=== PATIENT | female | born 1960 | race Caucasian/White ===

== ENCOUNTER → 2018-01-11 15:07 | Outpatient (CLI) | payer MEDICAID, SELFPAY ==
[2018-01-11 16:54] LABS: Thyroid Stim Hormone (TSH) 0.94 uIU/mL (0.358-3.74)
== END ==
PROVIDERS: Family Provider Family Medicine Geriatric Medicine; PCP Family Medicine Geriatric Medicine; Visit Provider Family Medicine Geriatric Medicine
DX: E03.9 Hypothyroidism, unspecified (principal)
CPT/HCPCS: 36415; 84443

== ENCOUNTER 2018-03-18 12:27 | Emergency (ER) | payer MEDICAID, SELFPAY ==
[2018-03-18 12:28] VITALS: BP 113/58; PULSE 103; RESP 16; TEMP 36.6; O2SAT 96; BMI 25.1
--- NOTE | 2018-03-18 12:40 | RAD_ITS ---
STUDY: X-RAY - RIGHT TIBIA AND FIBULA REASON FOR EXAM: Right foot/ankle soft tissue swelling and bruising, fall 2 days ago. TECHNIQUE: 2 view(s) of the tibia and fibula were obtained. COMPARISON: None. FINDINGS: There is intact orthopedic hardware bridging healed fractures of the medial malleolus and distal fibula. There is no demonstrated recent fracture of the tibia or fibula. There are pins transfixing a patellar fracture with disruption of one of the pins. There is mild soft tissue swelling at the dorsal aspect of the ankle. RAD/Tibia & Fibula 2 Views IMPRESSION: Healed fracture deformity of the medial malleolus and distal tibia without recent fracture. Patellar fracture with disruption of one of the orthopedic pins. Electronically Signed: Tye López MD at 13:32 EDT Tel , Service support ,
--- NOTE | 2018-03-18 12:40 | RAD_ITS ---
STUDY: X-RAY - RIGHT FOOT CLINICAL: Dorsal soft tissue swelling and bruising, fall 2 days ago. TECHNIQUE: 3 view(s) of the foot. COMPARISON: None. FINDINGS: There is osteopenia of the foot. There is orthopedic hardware in the medial malleolus and distal fibula. Normal talus, calcaneus, and tarsal bones. Normal visualized subtalar, talonavicular, calcaneocuboid, tarsal and tarsometatarsal articulations. There is a small avulsion fracture of the base of the fifth metatarsal. There is mild joint space narrowing of the metatarsophalangeal joint of the great toe. Normal tibial and fibular sesamoid bones. Normal interphalangeal joint of the great toe. Normal phalanges of the great toe. Normal second through fifth metatarsophalangeal joints. Normal interphalangeal joints and phalanges of the lesser toes. There is mild soft tissue swelling at the dorsal aspect of the foot. RAD/Foot min 3 Views IMPRESSION: Small avulsion fracture of the fifth metatarsal base. Mild arthrosis of the first metatarsophalangeal joint. Electronically Signed: Tye López MD at 13:32 EDT Tel , Service support ,
--- NOTE | 2018-03-18 13:02 | ED.VISSUMM ---
- ER Visit Summary Date of Service: 03/18/18 Chief Complaint: Right foot injury History of Present Illness: The patient is a 58 F who is post trauma day 2 from a fall going up stairs in which she injured the right foot. She states she really does not have any pain in it but notes that swollen and is purple. Physical Examination: Afebrile vital signs are stable The right foot below the malleoli demonstrates purple ecchymosis. She is point tender over the base of the fifth metatarsal. There is mild swelling. Neurovascular intact distally Test Results: X-rays reveal a small pull off fracture of the base of the fifth metatarsal. Emergency Department Course and Treatment: Patient was placed in a boot orthosis. She will follow-up with orthopedics return if worsening. Impression: 1. Right fifth metatarsal fracture This note was generated with [employer] dictation software. It may contain incorrect words, spelling, and punctuation that were not noted in review of the chart prior to signing ED Disposition - Plan for ED Patient: Disposition: Home or Assisted Living Chief Complaint: Lower Extremity Injury Instructions: ED Fx Foot Referrals: Dequan Clifton DO [STAFF PHYSICIAN] - (call for follow up appointment)
--- NOTE | 2018-03-18 13:05 | ED.DCSUM_ITS ---
- ER Visit Summary Date of Service: 03/18/18 Chief Complaint: Right foot injury History of Present Illness: The patient is a 58 F who is post trauma day 2 from a fall going up stairs in which she injured the right foot. She states she really does not have any pain in it but notes that swollen and is purple. Physical Examination: Afebrile vital signs are stable The right foot below the malleoli demonstrates purple ecchymosis. She is point tender over the base of the fifth metatarsal. There is mild swelling. Neurovascular intact distally Test Results: X-rays reveal a small pull off fracture of the base of the fifth metatarsal. Emergency Department Course and Treatment: Patient was placed in a boot orthosis. She will follow-up with orthopedics return if worsening. Impression: 1. Right fifth metatarsal fracture This note was generated with [employer] dictation software. It may contain incorrect words, spelling, and punctuation that were not noted in review of the chart prior to signing ED Disposition - Plan for ED Patient: Disposition: Home or Assisted Living Chief Complaint: Lower Extremity Injury Instructions: ED Fx Foot Referrals: Dequan Clifton DO [STAFF PHYSICIAN] - (call for follow up appointment)
[2018-03-18 13:24] VITALS: RESP 14
== END 2018-03-18 13:24 | disposition home or self-care (01) ==
LOC: ED 13:11
PROVIDERS: Emergency Provider Emergency Medicine; Family Provider Family Medicine Geriatric Medicine; PCP Family Medicine Geriatric Medicine
DX: S92.351A Displaced fracture of fifth metatarsal bone, right foot, initial encounter for closed fracture (principal); K21.9 Gastro-esophageal reflux disease without esophagitis; Z86.73 Personal history of transient ischemic attack (TIA), and cerebral infarction without residual deficits; Z72.0 Tobacco use; Z79.82 Long term (current) use of aspirin; Z79.899 Other long term (current) drug therapy; W17.89XA Other fall from one level to another, initial encounter; Y93.01 Activity, walking, marching and hiking; Y92.89 Other specified places as the place of occurrence of the external cause; Y99.8 Other external cause status
CPT/HCPCS: 73590; 73630; 99283

== ENCOUNTER → 2018-05-26 09:14 | Outpatient (CLI) | payer MEDICAID, SELFPAY ==
[2018-05-26 12:51] LABS: Absolute Lymphocyte Count 3.44 X10^3/ul (0.83-4.51); Absolute Neutrophil Count 3.8 X10^3/uL (2.0-7.7); Basophil# 0.05 X10^3/uL; Basophil% 0.6 % (0-1); Eosinophil# 0.14 X10^3/uL; Eosinophils% 1.7 % (0-5); Hematocrit 43.7 % (37-47); Hemoglobin 13.9 g/dl (12.0-15.0); Lymphocyte # 3.44 X10^3/ul (4.0); Lymphocyte % 41.7 % (19-41); Mean Corp Hgb Conc 31.8 g/gl (32-36); Mean Corpuscular Hgb 30.5 pg (27.0-32.0); Mean Corpuscular Volume 95.8 fL (81-99); Mean Platelet Vol. 9.8 fl (6.2-12.0); Monocyte# 0.78 X10^3/uL; Monocyte% 9.5 % (0-10); Neutrophil # 3.81 X10^3/uL (2.7-7.7); Neutrophil % 46.1 % (47-70); POSITIVE COUNT NO; POSITIVE DIFFERENTIAL NO; POSITIVE MORPHOLOGY NO; Platelet Count 383 K/mm3 (150-450); RBC Distribution Width CV 14.3 % (11.6-14.6); Red Blood Count 4.56 M/mm3 (4.2-5.4); White Blood Count 8.3 K/mm3 (4.4-11.0)
[2018-05-26 13:18] LABS: ALB/GLOB Ratio 0.9 RATIO (0.9-2.4); AST(SGOT) 16 U/L (15-37); Alanine Aminotransfer ALT/SGPT 23 U/L (13-56); Albumin, Serum 3.5 g/dL (3.2-5.0); Alkaline Phosphatase 128 U/L (45-117); Anion Gap 8 (5-15); BUN 12 mg/dL (7-18); BUN/Creat Ratio 13.8 RATIO (10-20); Calcium,Total 8.9 mg/dL (8.5-10.1); Chloride 105 mmol/L (98-107); Creatinine, Serum 0.87 mg/dL (0.55-1.02); EST Glomerular Filtration Rate 71 mL/min (>60); Est Glom Filt Rate - Afr Amer 86 mL/min (>60); Globulin 4.1 g/dL (2.2-4.2); Glucose 83 mg/dL (74-106); Potassium 3.9 mmol/L (3.5-5.1); Protein, Total 7.6 g/dL (6.4-8.2); Sodium Level 142 mmol/L (136-145); Thyroid Stim Hormone (TSH) 2.52 uIU/mL (0.358-3.74)
[2018-05-27 08:12] LABS: Hep C Antibodies <0.1 s/co ratio (0.0-0.9)
== END ==
PROVIDERS: Family Provider Family Medicine Geriatric Medicine; PCP Family Medicine Geriatric Medicine; Visit Provider Family Medicine Geriatric Medicine
DX: R53.83 Other fatigue (principal); Z13.89 Encounter for screening for other disorder
CPT/HCPCS: 36415; 80053; 84443; 85025; 86803

== ENCOUNTER → 2018-11-24 12:03 | Outpatient (CLI) | payer MEDICAID, SELFPAY ==
[2018-11-24 14:03] LABS: Absolute Lymphocyte Count 2.59 X10^3/ul (0.83-4.51); Basophil# 0.05 X10^3/uL; Basophil% 0.7 % (0-1); Eosinophil# 0.13 X10^3/uL; Eosinophils% 1.8 % (0-5); Hematocrit 45.4 % (37-47); Lymphocyte # 2.59 X10^3/ul (4.0); Lymphocyte % 35.2 % (19-41); Mean Corp Hgb Conc 30.8 g/gl (32-36); Mean Corpuscular Hgb 28.2 pg (27.0-32.0); Mean Corpuscular Volume 91.5 fL (81-99); Mean Platelet Vol. 9.9 fl (6.2-12.0); Monocyte# 0.57 X10^3/uL; Monocyte% 7.7 % (0-10); Neutrophil # 4.01 X10^3/uL (2.7-7.7); Neutrophil % 54.5 % (47-70); Platelet Count 381 K/mm3 (150-450); RBC Distribution Width CV 14.5 % (11.6-14.6); RBC Distribution Width SD 48.6 fl (35.1-43.9); Red Blood Count 4.96 M/mm3 (4.2-5.4); White Blood Count 7.4 K/mm3 (4.4-11.0)
[2018-11-24 14:07] LABS: POSITIVE COUNT NO; POSITIVE DIFFERENTIAL NO; POSITIVE MORPHOLOGY NO
[2018-11-24 14:16] LABS: Vitamin D,25 Hydroxy 53.6 ng/mL (29.95-100.01)
[2018-11-24 14:34] LABS: ALB/GLOB Ratio 0.8 RATIO (0.9-2.4); AST(SGOT) 14 U/L (15-37); Alanine Aminotransfer ALT/SGPT 19 U/L (13-56); Albumin, Serum 3.3 g/dL (3.2-5.0); Alkaline Phosphatase 219 U/L (45-117); Anion Gap 7 (5-15); BUN 9 mg/dL (7-18); BUN/Creat Ratio 10.2 RATIO (10-20); Calcium,Total 8.7 mg/dL (8.5-10.1); Chloride 107 mmol/L (98-107); Creatinine, Serum 0.88 mg/dL (0.55-1.02); EST Glomerular Filtration Rate 70 mL/min (>60); Est Glom Filt Rate - Afr Amer 85 mL/min (>60); Globulin 3.9 g/dL (2.2-4.2); Glucose 92 mg/dL (74-106); Potassium 3.6 mmol/L (3.5-5.1); Protein, Total 7.2 g/dL (6.4-8.2); Sodium Level 139 mmol/L (136-145); Thyroid Stim Hormone (TSH) < 0.01 uIU/mL (0.358-3.74)
--- OUTSIDE RECORDS SUMMARY | 2019-01-29 04:06 | XMS RPT_ITS ---
:1960 Author Organization [facility] Care Team Providers Name Role Phone Sam, Zachary Chi Attending Unavailable Sam, Zachary Chi Primary Care Unavailable Sam, Zachary Chi Attending Unavailable Sam, Zachary Chi Primary Care Unavailable Kelly Bee Attending Unavailable Gilbert Aguilar Attending Unavailable Sam, Zachary Chi Referring Unavailable Sam, Zachary Chi Primary Care Unavailable Sam, Zachary Chi Primary Care Unavailable Gilbert Hall Attending Unavailable Dequan Clifton Attending Unavailable Sam, Zachary Chi Referring Unavailable Sam, Zachary Chi Primary Care Unavailable Sam, Zachary Chi Attending Unavailable Sam, Zachary Chi Primary Care Unavailable PROBLEMS PROBLEMS DATE TYPE CONDITION / CODE ATTENDING STATUS SOURCE 05/26/2018 Unknown R53.83 - Other Sam, Zachary Chi Active [facility] fatigue / Community R53.83(ICD-10) Hospital Repository 05/26/2018 Unknown Z13.89 - Zachary Vargas Chi Active [facility] Encounter for Community screening for Hospital other disorder / Repository Z13.89(ICD-10) 02/17/2018 Unknown E78.5 - Gilbert Aguilar Active [facility] Hyperlipidemia, Community unspecified / Hospital E78.5(ICD-10) Repository 02/17/2018 Unknown Z72.0 - Tobacco Gilbert Aguilar Active [facility] use / Community Z72.0(ICD-10) Hospital Repository 01/11/2018 Unknown E03.9 - SamZachary lim Chi Active [facility] Hypothyroidism, Community unspecified / Hospital E03.9(ICD-10) Repository PROCEDURES PROCEDURES No Procedure Records FoundRESULTS RESULTS CBC W/DIFF, AUTOMATED Collected: 11/24/2018 Status: F Source: [facility] 12:05 PM [facility] REPOSITORY TYPE CODE TESTS RESULT OUT OF RANGE REFERENCE UNITS LAB L100.1000 4.4-11.0 K/mm3 Normal WBC 7.4 LAB L100.1200 4.2-5.4 M/mm3 Normal RBC 4.96 LAB L100.1300 12.0-15.0 g/dl Normal HGB 14.0 LAB L100.1400 37-47 % Normal HCT 45.4 LAB L100.1500 81-99 fL Normal MCV 91.5 LAB L100.1600 27.0-32.0 pg Normal MCH 28.2 LAB L100.1700 32-36 g/gl Low MCHC 30.8 LAB L100.1810 11.6-14.6 % Normal RDW CV 14.5 LAB L100.1820 35.1-43.9 fl High RDW SD 48.6 LAB L100.1900 150-450 K/mm3 Normal PLT 381 LAB L100.2000 6.2-12.0 fl Normal MPV 9.9 LAB L100.2100 47-70 % Normal NEUT% 54.5 LAB L100.2200 19-41 % Normal LY% 35.2 LAB L100.2300 0-10 % Normal MONO% 7.7 LAB L100.2400 0-5 % Normal EO% 1.8 LAB L100.2500 0-1 % Normal BASO% 0.7 LAB L100.2550 0.0-0.9 % Normal IM GRAN % 0.100 Result Comment: IG% - Immature Granulocytes (promyelocytes, myelocytes and metamyelocytes) > 1% indicates that a LEFT SHIFT is Present. LAB L100.2620 2.0-7.7 X10 3/uL Normal Absolute Neut 4.0 LAB L100.2720 0.83-4.51 X10 3/ul Normal Absolute Lymph 2.59 Performed By: #### L100.0100 #### [facility] [address] [place], [address] VITAMIN D,25 HYDROXY Collected: 11/24/2018 Status: F Source: [place] 12:05 [facility] REPOSITORY TYPE CODE TESTS RESULT OUT OF RANGE REFERENCE UNITS LAB L506.1000 29.95-100.01 ng/mL Normal Vitamin D 53.6 25-OH Result Comment: Vitamin D 25(OH) Status Range Deficiency <20 ng/mL (50nmol/L) Insuffciency 20 - 30 ng/mL (50 - 75 nmol/L) Sufficiency 30 - 100 ng/mL (75 - 250 nmol/L) Toxicity >100 ng/mL (>250 nmol/L) Performed By: #### L506.1000 #### [facility] [address] [place], [place], [address] COMPREHENSIVE METABOLIC Collected: 11/24/2018 Status: F Source: [facility] 12:05 PM [facility] REPOSITORY TYPE CODE TESTS RESULT OUT OF RANGE REFERENCE UNITS LAB L501.0100 74-106 mg/dL Normal GLU 92 Result Comment: Please note revised GLUCOSE reference range effective 2017. LAB L501.1000 7-18 mg/dL Normal BUN 9 LAB L501.1100 0.55-1.02 mg/dL Normal CREAT,SERUM 0.88 Result Comment: The validity of the calculated GFR AND GFRAA in patients over 70 years has not been determined. Clinical correlation is essential. LAB L501.1110 >60 mL/min Normal EST GFR 70 Result Comment: Non- GFR Calc LAB L501.1115 >60 mL/min Normal EST GFR - AA 85 Result Comment: GFR Calc LAB L501.1300 10-20 RATIO Normal BUN/CRE 10.2 LAB L501.1500 6.4-8.2 g/dL T Normal PROT 7.2 LAB L501.1800 3.2-5.0 g/dL Normal ALB 3.3 LAB L501.1950 2.2-4.2 g/dL Normal GLOB 3.9 LAB L501.2000 0.9-2.4 RATIO Low A/G 0.8 LAB L501.2200 8.5-10.1 mg/dL CA Normal 8.7 LAB L501.4100 15-37 U/L Low AST 14 LAB L501.4305 45-117 U/L High ALK P 219 LAB L501.4405 13-56 U/L Normal ALT 19 LAB L501.4600 0.20-1.00 mg/dL T Normal BILI 0.40 LAB L501.5300 136-145 mmol/L NA Normal 139 LAB L501.5600 3.5-5.1 mmol/L K Normal 3.6 LAB L501.5900 98-107 mmol/L CL Normal 107 LAB L501.6100 21.0-32.0 mmol/L Normal CO2 25.0 LAB L501.6200 5-15 Normal GAP 7 Performed By: #### L500.4050, L501.9520 #### [facility] [address] [place], [place], [address] THYROID STIM HORMONE Collected: 11/24/2018 Status: F Source: [place] (TSH) 12:05 PM [facility] REPOSITORY TYPE CODE TESTS RESULT OUT OF RANGE REFERENCE UNITS LAB L501.9520 0.358-3.74 uIU/mL Low TSH < 0.01 Performed By: #### L500.4050, L501.9520 #### [facility] [address] [place], [address] CBC W/DIFF, AUTOMATED Collected: 05/26/2018 Status: F Source: [place] 9:54 AM [facility] REPOSITORY TYPE CODE TESTS RESULT OUT OF RANGE REFERENCE UNITS LAB L100.1000 4.4-11.0 K/mm3 Normal WBC 8.3 LAB L100.1200 4.2-5.4 M/mm3 Normal RBC 4.56 LAB L100.1300 12.0-15.0 g/dl Normal HGB 13.9 LAB L100.1400 37-47 % Normal HCT 43.7 LAB L100.1500 81-99 fL Normal MCV 95.8 LAB L100.1600 27.0-32.0 pg Normal MCH 30.5 LAB L100.1700 32-36 g/gl Low MCHC 31.8 LAB L100.1810 11.6-14.6 % Normal RDW CV 14.3 LAB L100.1820 35.1-43.9 fl High RDW SD 49.0 LAB L100.1900 150-450 K/mm3 Normal PLT 383 LAB L100.2000 6.2-12.0 fl Normal MPV 9.8 LAB L100.2100 47-70 % Low NEUT% 46.1 LAB L100.2200 19-41 % High LY% 41.7 LAB L100.2300 0-10 % Normal MONO% 9.5 LAB L100.2400 0-5 % Normal EO% 1.7 LAB L100.2500 0-1 % Normal BASO% 0.6 LAB L100.2550 0.0-0.9 % Normal IM GRAN % 0.400 Result Comment: IG% - Immature Granulocytes (promyelocytes, myelocytes and metamyelocytes) > 1% indicates that a LEFT SHIFT is Present. LAB L100.2620 2.0-7.7 X10 3/uL Normal Absolute Neut 3.8 LAB L100.2720 0.83-4.51 X10 3/ul Normal Absolute Lymph 3.44 Performed By: #### L100.0100 #### [facility] [address] [place], [place], [address] COMPREHENSIVE METABOLIC Collected: 05/26/2018 Status: F Source: [place] 9:54 AM [facility] REPOSITORY TYPE CODE TESTS RESULT OUT OF RANGE REFERENCE UNITS LAB L501.0100 74-106 mg/dL Normal GLU 83 Result Comment: Please note revised GLUCOSE reference range effective 2017. LAB L501.1000 7-18 mg/dL Normal BUN 12 LAB L501.1100 0.55-1.02 mg/dL Normal CREAT,SERUM 0.87 Result Comment: The validity of the calculated GFR AND GFRAA in patients over 70 years has not been determined. Clinical correlation is essential. LAB L501.1110 >60 mL/min Normal EST GFR 71 Result Comment: Non- GFR Calc LAB L501.1115 >60 mL/min Normal EST GFR - AA 86 Result Comment: GFR Calc LAB L501.1300 10-20 RATIO Normal BUN/CRE 13.8 LAB L501.1500 6.4-8.2 g/dL T Normal PROT 7.6 LAB L501.1800 3.2-5.0 g/dL Normal ALB 3.5 LAB L501.1950 2.2-4.2 g/dL Normal GLOB 4.1 LAB L501.2000 0.9-2.4 RATIO Normal A/G 0.9 LAB L501.2200 8.5-10.1 mg/dL CA Normal 8.9 LAB L501.4100 15-37 U/L Normal AST 16 LAB L501.4305 45-117 U/L High ALK P 128 LAB L501.4405 13-56 U/L Normal ALT 23 LAB L501.4600 0.20-1.00 mg/dL T Normal BILI 0.40 LAB L501.5300 136-145 mmol/L NA Normal 142 LAB L501.5600 3.5-5.1 mmol/L K Normal 3.9 LAB L501.5900 98-107 mmol/L CL Normal 105 LAB L501.6100 21.0-32.0 mmol/L Normal CO2 29.0 LAB L501.6200 5-15 Normal GAP 8 Performed By: #### L500.4050, L501.9520 #### [facility] [address] [place], [place], [id number] THYROID STIM HORMONE Collected: 05/26/2018 Status: F Source: [place] (TSH) 9:54 AM [facility] REPOSITORY TYPE CODE TESTS RESULT OUT OF RANGE REFERENCE UNITS LAB L501.9520 0.358-3.74 uIU/mL Normal TSH 2.52 Performed By: #### L500.4050, L501.9520 #### [facility] [address] [place], [place], [id number] HEPATITIS C ANTIBODIES Collected: 05/26/2018 Status: F Source: [place] 9:54 AM [facility] REPOSITORY TYPE CODE TESTS RESULT OUT OF RANGE REFERENCE UNITS LAB L3100.0650 0.0-0.9 s/co ratio Normal HEP C AB <0.1 Result Comment: Negative: < 0.8 Indeterminate: 0.8 - 0.9 Positive: > 0.9 The CDC recommends that a positive HCV antibody result be followed up with a HCV Nucleic Acid Amplification test (070533). Performed at: - [facility] [id number] [place] Range Operator: Andrei Knowles PhD, Phone: [phone] Performed By: #### L3100.0625 #### [facility] (refer to report for specific site) refer to report for address and phone number ORTHOPEDIC VISIT Observed: 04/24/2018 Status: F Source: [place] RE[place] 9:11 PM [facility] REPOSITORY [facility] [address] [place] [address] [address] [place] [address] OFFICE VISIT Date of Service: 03/30/18 MR#: [id number] Acct: [id number] Name: FLOYD MUELLER Rep #: [id number] : 1960 Provider: Dequan Clifton DO Age/Sex: 58/F Location: [facility] Status: Signed Intake Intake Visit Reasons: RIGHT Foot Is patient in pain?: Yes Pain scale (1-10): 2 Allergies No Known Allergies Allergy (Verified 03/18/18 12:35) Medications omeprazole 20 mg capsule,delayed release 20 mg PO QDAY 02/16/18 [History Confirmed 03/30/18] levothyroxine 50 mcg capsule 50 mcg PO QDAY cap 02/17/18 [History Confirmed 03/30/18] Aspirin E.C. 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 Patient presents in the cam boot from the ED and only complains of pain when ambulating otherwise she is comfortable fwb in boot. Denies numbness, tingling or other associated symptoms. ROS Musc Reports joint pain, Reports joint swelling Ortho Exam Right Ankle Skin/Wound: Yes Ecchymosis and Soft Tissue Swelling Contralateral Normal: Yes Exam: present TTP FX site; absent TTP Lateral Malleolus, TTP ATFL, TTP Medial Malleolus, TTP Deltoid Ligament or TTP Lisfranc Joint Dorsiflexion 0-20: 20 degrees Plantar Flexion 0-40: 40 degrees Compartments: Compartments: soft ROM: present Pain with ROM, present Crepitus with ROM Tests: Cedillo Test: 1, Squeeze Test: 1 Anterior Drawer: 0 Motor: Ankle Dorsiflextion: 5, Ankle Plantar Flexion: 5, Ankle Inversion: 5, EHL: 5 Sensation: Deep Peroneal Nerve: I, Superficial Peroneal Nerve: I, Tibial Nerve: I, Sural Nerve: I, Saphenous Nerve: I Pulses: Dorsalis Pedis: 2, Posterior Tibial: 2 ANKLE: Patient is alert and oriented x3 in no acute distress. Appropriate eye contact and affect. Patient walks with a antalgic gait. Patient is currently in a Cam boot. She has no calf pain negative Homans. Gross motor strength 5 out of 5 in all planes. Sensation intact from the L1-S1 distributions. She is tender to palpation across the base of the fifth metatarsal. There is mild ecchymosis and swelling as expected. Patient has no Lisfranc pain and no other associated deltoid ligament pain. Mildly tender palpation around the distal fibula consistent with her ankle sprain. X-rays: Evaluated by myself and the patient-patient shows a small avulsion fracture of the base of the fifth metatarsal. Otherwise she has previous hardware within the ankle joint that appears to be well-seated well placed. Left Ankle Skin: Yes CDI Contralateral Normal: Yes Compartments: soft Dorsiflexion 0-20: 20 degrees Plantar Flexion 0-40: 40 degrees ROM: No pain with ROM or crepitus with ROM Anterior Drawer: 0 Tests: Cedillo Test: 1, Squeeze Test: 1 Motor: Ankle Dorsiflextion: 5, Ankle Plantar Flexion: 5, Ankle Eversion: 5, Ankle Inversion: 5, EHL: 5 Sensation: Deep Peroneal Nerve: I, Superficial Peroneal Nerve: I, Tibial Nerve: I, Sural Nerve: I, Saphenous Nerve: I Pulses: Dorsalis Pedis: 2, Posterior Tibial: 2 Assessment AND Plan Problems 1. Closed nondisplaced fracture of fifth metatarsal bone of right foot, initial encounter S92.354A Plan Assessment: Right foot pain and right fifth metatarsal avulsion fracture stable. Plan: At this point time will continue with the Cam boot as tolerated. I told the patient that when she feels comfortable that she can come out of the cam boot and walk around the house without any use of assistive device as needed. If she were to have continued difficulties we will get her into physical therapy. However this point time we will see the patient back in about 5 weeks. We will do a simple physical examination at that point time and then consider physical therapy versus continued physician directed home program. Patient agrees the plan. Any major issues at term. Coding Level of Care Code Off vis,est,level 4 Diagnoses Closed nondisplaced fracture of fifth metatarsal bone of right foot, initial encounter S92.354A Fracture type: closed Encounter type: initial encounter 04/24/182110 <Electronically signed by Dequan Clifton DO> Date Dequan Clifton DO Cosigner Signature: Date (if applicable) CC: EMERGENCY DEPARTMENT Observed: 03/18/2018 Status: F Source: [facility] SUMMARY 3:45 PM [facility] REPOSITORY [facility] Medical Records Department [address] [place] [address] Emergency Department Summary 03/18/18 1302 MR#: [id number] Acct: [id number] Name: FLOYD MUELLER Rep #: [id number] : 1960 58 From: Gilbert Hall DO PCP: Sam BARAJAS,Zachary [facility] Status: DEP ER - ER Visit Summary Date of Service: 03/18/18 Chief Complaint: Right foot injury History of Present Illness: The patient is a 58 F who is post trauma day 2 from a fall going up stairs in which she injured the right foot. She states she really does not have any pain in it but notes that swollen and is purple. Physical Examination: Afebrile vital signs are stable The right foot below the malleoli demonstrates purple ecchymosis. She is point tender over the base of the fifth metatarsal. There is mild swelling. Neurovascular intact distally Test Results: X-rays reveal a small pull off fracture of the base of the fifth metatarsal. Emergency Department Course and Treatment: Patient was placed in a boot orthosis. She will follow-up with orthopedics return if worsening. Impression: 1. Right fifth metatarsal fracture This note was generated with [employer] dictation software. It may contain incorrect words, spelling, and punctuation that were not noted in review of the chart prior to signing ED Disposition - Plan for ED Patient: Disposition: Home or Assisted Living Chief Complaint: Lower Extremity Injury Instructions: ED Fx Foot Referrals: Dequan Clifton DO [STAFF PHYSICIAN] - (call for follow up appointment) What to do if you have Problems For any increased pain, shortness of breath, bleeding, nausea or vomiting, chest pain, or any unexpected problems, contact your Primary Care Provider. Call [facility] ([phone]) or report to the closest Emergency Room. Call 911 if necessary. 03/18/18 1545 <Electronically signed by Gilbert Hall DO> Date Gilbert Hall DO Cosigner Signature (If Indicated): Date CC: Zachary Vargas MD TIBIA AND FIBULA Observed: 03/18/2018 Status: F Source: [place] 2 VIEWS 12:41 PM [facility] REPOSITORY [facility] Imaging Services [address] [place] [address] Tibia AND Fibula 2 Views MR#: [id number] Acct: [id number] Name: FLOYD MUELLER Rep #: [id number] : 1960 F 58 From: Tye López MD PCP: Zachary Vargas MD, Chi Status: DEP ER Study: Tibia AND Fibula 2 Views Date of Exam: 03/18/18 Exam# [id number] Ordering Dr: Gilbert Hall DO STUDY: X-RAY - RIGHT TIBIA AND FIBULA REASON FOR EXAM: Right foot/ankle soft tissue swelling and bruising, fall 2 days ago. TECHNIQUE: 2 view(s) of the tibia and fibula were obtained. COMPARISON: None. FINDINGS: There is intact orthopedic hardware bridging healed fractures of the medial malleolus and distal fibula. There is no demonstrated recent fracture of the tibia or fibula. There are pins transfixing a patellar fracture with disruption of one of the pins. There is mild soft tissue swelling at the dorsal aspect of the ankle. RAD/Tibia AND Fibula 2 Views IMPRESSION: Healed fracture deformity of the medial malleolus and distal tibia without recent fracture. Patellar fracture with disruption of one of the orthopedic pins. Electronically Signed: Tye López MD at 13:32 EDT Tel , Service support , CC: Gilbert Hall DO; Zachary Vargas MD Technical Editor: Signed FOOT MIN 3 VIEWS Observed: 03/18/2018 Status: F Source: [place] 12:41 PM [facility] REPOSITORY [facility] Imaging Services [address] [place] [address] Foot min 3 Views MR#: [id number] Acct: [id number] Name: FLOYD MUELLER Rep #: [id number] : 1960 F 58 From: Tye López MD PCP: Zachary Vargas MD, Chi Status: DEP ER Study: Foot min 3 Views Date of Exam: 03/18/18 Exam# [id number] Ordering Dr: Gilbert Hall DO STUDY: X-RAY - RIGHT FOOT CLINICAL: Dorsal soft tissue swelling and bruising, fall 2 days ago. TECHNIQUE: 3 view(s) of the foot. COMPARISON: None. FINDINGS: There is osteopenia of the foot. There is orthopedic hardware in the medial malleolus and distal fibula. Normal talus, calcaneus, and tarsal bones. Normal visualized subtalar, talonavicular, calcaneocuboid, tarsal and tarsometatarsal articulations. There is a small avulsion fracture of the base of the fifth metatarsal. There is mild joint space narrowing of the metatarsophalangeal joint of the great toe. Normal tibial and fibular sesamoid bones. Normal interphalangeal joint of the great toe. Normal phalanges of the great toe. Normal second through fifth metatarsophalangeal joints. Normal interphalangeal joints and phalanges of the lesser toes. There is mild soft tissue swelling at the dorsal aspect of the foot. RAD/Foot min 3 Views IMPRESSION: Small avulsion fracture of the fifth metatarsal base. Mild arthrosis of the first metatarsophalangeal joint. Electronically Signed: Tye López MD at 13:32 EDT Tel , Service support , CC: iGlbert Hall DO; Zachary Vargas MD Technical Editor: Signed CARDIOLOGY VISIT Observed: 02/17/2018 Status: F Source: [place] REPORT 1:33 PM [facility] REPOSITORY [facility] [address] [place] [address] OFFICE VISIT Date of Service: 02/17/18 MR#: [id number] Acct: [id number] Name: FLOYD MUELLER Rep #: [id number] : 1960 Provider: Gilbert Aguilar MD Age/Sex: 58/F Location: [facility] Status: Signed HPI HPI Chief Complaint: Routine follow-up Details: Referring physician: Dr. Iraheta Ms. 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 This left her with left upper extremity hemiplegia,left facial droop, and dysphagia requiring placement of a G-tube. She had been placed on aspirin and Plavix. The patient then went to rehab at [facility], and then developed a headache. A CT scan demonstrated a right-sided acute hemorrhagic infarction involving the right frontal temporal and frontoparietal areas, most likely secondary to her Recent embolic CVA stroke. She was transferred to [facility] on 07/06/15 and stayed there until 07/09/15. At that time neurosurgery was consulted, and her aspirin and Plavix were discontinued. Her aspirin was restarted 7 days after discharge. patient was originally referred for cardiac risk stratification and underwent an echo and stress test in June and August 2015 respectively. Both were negative and no catheterization has been performed. After her initial CVA and bleed, she and had successfully quit smoking but unfortunately is back to smoking. Fortunately she denies any chest pain, angina, shortness of breath or dyspnea on exertion. She denies having previous stress test or catheterization. An EKG obtained 06/19/15 demonstrated normal sinus rhythm, normal axis, normal intervals, no evidence of previous myocardial infarction. Patient also underwent an echocardiogram during her initial stay at [facility] on 06/09/15 which demonstrated normal LV size and EF of 55%, bubble was negative for intra-atrial shunt. A repeat CT a of her neck demonstrated normal bilateral cervical carotid and vertebral arteries, so no CEA has been performed at this time. Since her last visit, the patient has been doing fairly well, and denies any chest pain, angina, shortness of breath or dyspnea on exertion. Unfortunately she continues to smoke about half a pack of cigarettes per day. In our office today her blood pressure is 118/76, and pulse is 84 and regular. Her physical exam is as below. Her lipids are managed per Dr. Vargas. She is tolerating high-dose Lipitor at 80 mg p.o. daily at this time. No myalgias. Intake Vital Signs02/17/18 Height 5 ft 4 in 02/17/18 Weight: 133 lb 02/17/18 Body Mass Index (BMI) 22.8 02/17/18 Blood Pressure 118/76 02/17/18 Respiratory Rate 18 02/17/18 Pulse Rate 84 Intake Visit Reasons: 1 Y FU Allergies No Known Allergies Allergy (Verified 02/17/18 13:17) Medications Atorvastatin Calcium [Lipitor] 80 mg GT QHS #30 tab 06/12/15 [Rx Confirmed 02/16/18] Thiamine Hydrochloride [Vitamin B1] 100 mg GT BID #10 tab 06/12/15 [Rx Confirmed 02/16/18] omeprazole 20 mg capsule,delayed release 20 mg PO QDAY 02/16/18 [History Confirmed 02/16/18] trazodone 100 mg tablet PO 30 Days 02/16/18 [History Confirmed 02/16/18] zolpidem 10 mg tablet 10 mg PO HS PRN 02/16/18 [History Confirmed 02/16/18] levothyroxine 50 mcg capsule 50 mcg PO QDAY cap 02/17/18 [History Confirmed 02/17/18] paroxetine 10 mg tablet 10 mg PO QDAY 02/17/18 [History Confirmed 02/17/18] [facility] Medical History Hemorrhagic cerebrovascular accident (CVA) (Chronic 07/07/15) Nicotine abuse (Chronic) Hyperlipidemia (Chronic) Anxiety and depression (Chronic) COPD (chronic obstructive pulmonary disease) (Chronic) Hypothyroidism (Chronic) Left hemiplegia (Chronic) Osteoporosis (Chronic) Polycythemia vera (Chronic) Surgical History History of right knee surgery (Chronic) right ankle surgery (Chronic) Family History Mother Diabetes Social History Smoking Status: Former smoker ROS Const Const: Positive for weakness (left sided weakness); negative for fatigue, difficulty sleeping, frequent falls, headache(s) or excessive sweating Eyes Eyes: Negative for loss of peripheral vision, transient loss of vision, blurry vision or double vision ENT ENT: Negative for Nosebleed/epistaxis, balance problems, dizziness or headache(s) Cardio Chest Pain: No Edema: None Muscle aches with walking: None Resp Respiratory: Negative for SOB with activity, SOB at rest, SOB orthopnea\SOB lying down or paroxysmal nocturnal dyspnea GI GI: Negative nausea or heartburn : Negative for hematuria Musc Musc: Negative for muscle aches/ myalgia, muscle weakness, joint pain or balance problems Skin Skin: Negative non-healing lesions, unusual bruising or rash Neuro Neuro: Positive for weakness (left sided weakness); negative for blurry vision, dizziness, lightheadedness, orthostatic symptoms, double vision, frequent falls or headache(s) Matt Hematologic/Lymphatic: Negative for easy bruising Endo Endo: Negative for increased thirst/drinking, fatigue or excessive sweating Psych Psych: Negative for anxiety or depression Allergy Allergy/Immunology: Negative for hives, Negative for rash Cardiology Exam Const Appearance: cooperative, healthy appearing and no acute distress Nutritional Appearance: well nourished Orientation: alert, oriented x3 and oriented to person Head Head: normal to inspection, atraumatic and normocephalic Nose: external nose normal Face and Sinus: face symmetric Mouth: oral mucosae normal Eyes General: appearance normal, both eyes and all related structures Eyelids: eyelids normal Conjunctivae: conjunctivae normal Pupils: PERRL and normal by confrontation EOM: EOM intact bilaterally Neck Neck: normal visual inspection and full ROM Carotids: normal carotid upstroke Chest Chest inspection: normal inspection of the chest Auscultation: Bilateral: Clear to Auscultation Cardio Palpation: normal PMI Rate: regular rate Rhythm: regular rhythm Heart sounds: S1 normal and S2 normal GI GI: normal to inspection, no hepatosplenomegaly and bowel sounds present Neuro General: alert, oriented x3, awake, CN's II-XI intact bilaterally and moves all extremities Skin Skin: no rashes or lesions noted Extremities Pulses: Normal: Right Femoral Pulse, Left Femoral Pulse, Right Dorsalis Pedis Pulse, Left Dorsalis Pedis Pulse, Right Posterior Tibial Pulse, Left Posterior Tibial Pulse, Right Radial Pulse, Left Radial Pulse Lower Extremity Edema: None: Bilateral Psych Psychological: normal affect Assessment AND Plan 1. Hyperlipidemia E78.5 Plan 1. Hyperlipidemia: Her lipids are managed by her PCP, and she appears to be tolerating high-dose Lipitor at this time. No myalgias noted. Recommend an LDL less than 70 if possible. 2. Nicotine abuse Z72.0 Plan 2. Nicotine abuse: Unfortunately the patient has reverted back to tobacco abuse about one half pack of cigarettes per day. I strongly encouraged her to discontinue all tobacco products and she has successfully done so in the past. Patient commenced to discontinuing tobacco by the time we meet in 1 years time. 3. Return office in 1 year. This note was generated using a voice recognition system and there may be incorrect words, spelling or punctuation that were not noted when reviewing the office note prior to saving. Plan Detail Follow Up 1 Year (Jeff) Coding Level of Care Code Off vis,est,level 3 Diagnoses Hyperlipidemia E78.5 Nicotine abuse Z72.0 Coding Level of Care Code Off vis,est,level 3 Diagnoses Hyperlipidemia E78.5 Nicotine abuse Z72.0 02/17/18 1333 <Electronically signed by Gilbert Aguilar MD> Date Gilbert Aguilar MD Cosigner Signature: Date (if applicable) CC: THYROID STIM HORMONE Collected: 01/11/2018 Status: F Source: KODI (TSH) 3:08 PM [facility] REPOSITORY TYPE CODE TESTS RESULT OUT OF RANGE REFERENCE UNITS LAB L501.9520 0.358-3.74 uIU/mL Normal TSH 0.94 Performed By: #### L501.9520 #### [facility] [address] [place], [address] ALLERGIES ALLERGIES DATE TYPE / CODE NAME / CODE REACTION SEVERITY SOURCE 03/18/2018 Drug No Known Unknown [facility] Allergy/4160 Allergies/F00 Hospital 96305(SNOMED 8873103(RXNOR Repository CT) M) ENCOUNTERS ENCOUNTERS ADMIT/DISCHARGE ACCOUNT ADMITTING ENCOUNTER LOCATION SOURCE NUMBER CLASS 11/24/2018 [id number] Ambulatory Kodi Kodi 8 [facility] ing:POLAB3 Repository 05/26/2018 [id number] Ambulatory Fyffe Kodi 9 [facility] ing:POLAB3 Repository 03/30/2018/ [id number] Ambulatory BMSBuilding:B Kodi 8 4 MS.Counts include 234 beds at the [facility] Repository 03/18/2018/ [id number] Emergency Fyffe Kodi 8 2 [facility] ing:ED Repository 02/17/2018/ [id number] Ambulatory BMSBuilding:B Fyffe 8 3 [facility] Repository 02/16/2018 [id number] Ambulatory BMSBuilding:B Kodi 1 [facility] Repository 01/11/2018 [id number] Ambulatory Fyffe Fyffe 6 [facility] ing:LAB.FUTUR Repository E PAYERS PAYERS ENCOUNTER GUARANTOR PAYER SUBSCRIBER SOURCE 11/24/2018 [id number] [id number] Primary Insurance:[facility] FLOYD [address] [facility] DILDINEDOB: [place], [place] Number: [id number] Hospital [address]Hvx: [phone] [id number] Repository [phone] () Date:[id number] [address]FC: 11/24/2018 Secondary NOT GIVENUNK Kodi Insurance:SELF PAY [facility] Number: Effective Repository Date:2018-11-24 05/26/2018 FLOYD Mace [id number] Primary Insurance:[facility] FLOYD Mace Kodi [address] [facility] PLANPolicy [place]ILD[place]OB[place] Number: [id number] Hospital [address]Oyw: 330 [id number] Repository [phone] () Date:3621-24-41[place] [address] [address]DU: 05/26/2018 Secondary NOT GIVENUNK Fyffe Insurance:SELF PAY [facility] Number: Effective Repository Date:2018-05-26 03/30/2018 FLOYD Mace [id number] Primary Insurance:[facility] FLOYD Mace Kodi [address] COMMUNITY PLANPolicy [place]ILDIN[place]OB: [place] Number: [id number] Hospital [address]Wcd: 330 [id number] Repository [phone] () Date:[id number] [address] [address]AE: 03/30/2018 Secondary NOT GIVENUNK Fyffe Insurance:SELF PAY [facility] Number: Effective Repository Date:2018-03-23 03/18/2018 FLOYD Mace [id number] Primary Insurance:[facility] FLOYD [address] COMMUNITY PLANPolicy DILDINEDOB: [facility] [place] Number: [id number] Hospital [address]Wyp: [phone] [id number] Repository [phone] () Date:[id number] [address] [address]KJ: 03/18/2018 Secondary NOT GIVENUNK Kodi Insurance:SELF PAY [facility] Number: Effective Repository Date:2018-03-18 02/17/2018 FLOYD Mace [id number] Primary Insurance:[facility] FLOYD [address] COMMUNITY PLANPolicy DILDINEDOB: [facility] [place] Number: [id number] Hospital [address]Xty: ([phone]) [id number] Repository [phone] () Date:[id number] [address]PQ: 02/17/2018 Secondary NOT GIVENUNK Fyffe Insurance:SELF PAY [facility] Number: Effective Repository Date:2017-10-18 02/16/2018 Carolyn Primary Insurance:[facility] FLOYD Mariee [id number] 1/2 COMMUNITY PLANPolicy DILDINEDOB: [address] Number: [id number] [id number] Repository [address]Egi: ([phone]) Date:0418-28-55JN [phone] () [address] [place] [address]IS: 02/16/2018 Secondary NOT GIVENUNK Fyffe Insurance:SELF PAY [facility] Number: Effective Repository Date:2018-02-16 01/11/2018 Carolyn Primary Insurance:[facility] FLOYD Cortesdine638 1/2 COMMUNITY PLANPolicy DILDINEDOB: Community [address] Number: [id number] [id number] Repository [address]Afp: ([phone]) Date:3817-78-28YL [phone] () [address] [place] [address]KT: 01/11/2018 Secondary NOT GIVENUNK Kodi Insurance:SELF PAY [facility] Number: Effective Repository Date:2017-12-03
== END ==
PROVIDERS: Family Provider Family Medicine Geriatric Medicine; PCP Family Medicine Geriatric Medicine; Visit Provider Family Medicine Geriatric Medicine
DX: E55.9 Vitamin D deficiency, unspecified (principal); R53.83 Other fatigue
CPT/HCPCS: 36415; 80053; 82306; 84443; 85025

== ENCOUNTER 2018-12-26 14:45 | Emergency (ER) | payer MEDICAID, SELFPAY ==
[2018-12-26 14:46] VITALS: BP 105/71; PULSE 91; RESP 14; TEMP 36.6; O2SAT 98; BMI 23.5
--- NOTE | 2018-12-26 14:53 | RAD_ITS ---
STUDY: X-RAY - LEFT FOOT CLINICAL: Female, 58 years old. Pain following a fall. TECHNIQUE: 3 view(s) of the foot. COMPARISON: None. FINDINGS: There is a plantar calcaneal spur. Normal visualized subtalar, talonavicular, calcaneocuboid, tarsal and tarsometatarsal articulations. There is demineralization of the metatarsi. There is degenerative arthrosis of the metatarsophalangeal joint of the hallux with a hallux valgus deformity. Normal tibial and fibular sesamoid bones. Normal interphalangeal joint of the great toe. Normal phalanges of the great toe. Normal second through fifth metatarsophalangeal joints. Normal interphalangeal joints and phalanges of the lesser toes. There is non-specific soft tissue swelling of the foot. RAD/Foot min 3 Views IMPRESSION: Diffuse soft tissue swelling. Electronically Signed: Damon Hayes MD at 15:39 EST , Service support ,
--- NOTE | 2018-12-26 15:54 | ED.VISSUMM ---
- ER Visit Summary Date of Service: 12/26/18 Chief Complaint: Left foot injury History of Present Illness: The patient is a 58 F who fell in the bathroom yesterday. She states that the mild left ankle pain last evening but today noted pain, swelling, and bruising to her left foot. 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 Physical Examination: Vital signs unremarkable. Patient sitting in a hallway wheelchair. She is in no acute distress. Head neck examination reveals no obvious sign of trauma Left lower extremity examination reveals left foot to have diffuse edema. There is mild erythema over the top of the left foot. She has bruising over the medial wall of the plantar surface. There is minimal diffuse tenderness, but no focal area that seems any worse than the others. Test Results: Left foot x-rays reveals diffuse soft tissue swelling but no evidence of fracture. Emergency Department Course and Treatment: Test results are discussed with patient. Shyam wrap is applied. Treatment Plan: [] Disposition: Discharge Impression: Left foot sprain status post fall This note was generated with [employer] dictation software. It may contain incorrect words, spelling, and punctuation that were not noted in review of the chart prior to signing ED Disposition - Plan for ED Patient: Referrals: Zachary Vargas Chi, MD [Primary Care Provider] -
--- NOTE | 2018-12-26 15:56 | ED.DEP ---
ED Disposition - Plan for ED Patient: Disposition: Home or Assisted Living Instructions: ED Sprain Foot Referrals: Zachary Vargas Chi, MD [Primary Care Provider] - 1 Week if not improving
[2018-12-26 16:01] VITALS: BP 97/54; PULSE 90; RESP 18; O2SAT 94
== END 2018-12-26 16:03 | disposition home or self-care (01) ==
PROVIDERS: Emergency Provider Emergency Medicine; Family Provider Family Medicine Geriatric Medicine; PCP Family Medicine Geriatric Medicine
DX: S93.602A Unspecified sprain of left foot, initial encounter (principal); I62.9 Nontraumatic intracranial hemorrhage, unspecified; I69.154 Hemiplegia and hemiparesis following nontraumatic intracerebral hemorrhage affecting left non-dominant side; J44.9 Chronic obstructive pulmonary disease, unspecified; E78.00 Pure hypercholesterolemia, unspecified; F41.9 Anxiety disorder, unspecified; Z72.0 Tobacco use; Z79.82 Long term (current) use of aspirin; Z79.899 Other long term (current) drug therapy; W18.30XA Fall on same level, unspecified, initial encounter; Y93.89 Activity, other specified; Y92.002 Bathroom of unspecified non-institutional (private) residence as the place of occurrence of the external cause; Y99.8 Other external cause status
CPT/HCPCS: 73630; 99282

== ENCOUNTER → 2019-01-02 14:15 | Outpatient (CLI) | payer MEDICAID, SELFPAY ==
[2018-12-26 14:46] VITALS: BMI 23.5
[2019-01-02 15:15] LABS: Thyroid Stim Hormone (TSH) 2.99 uIU/mL (0.358-3.74)
== END ==
PROVIDERS: Family Provider Family Medicine Geriatric Medicine; PCP Family Medicine Geriatric Medicine; Visit Provider Family Medicine Geriatric Medicine
DX: E03.9 Hypothyroidism, unspecified (principal)
CPT/HCPCS: 36415; 84443

== ENCOUNTER 2019-02-08 11:00 | Outpatient (RCR) | payer MEDICAID, SELFPAY ==
--- NOTE | 2019-01-12 12:00 | HP.PTEVAL ---
Patient's Visit Information FLOYD MUELLER is a 58 year old F referred to Physical Therapy by Zachary Vargas MD with a diagnosis of STROKE, LEFT AFSHIN, FALLS.. Date of Evaluation: 01/12/19 Physical Therapist: Didi Ku PT, Cert MDT - Visit Plan Frequency: 2-3x /Week Duration: 4-6 Weeks Plan: *RECENT LEFT FOOT/ANKLE INJURY FROM FALL AND RIGHT FOOT FX LESS THAN A YEAR AGO. HIGH FALL RISK* WALKER HAS BEEN RECOMMENDED. GAIT TRAINING. BALANCE TRAINING. ANDIE LE ROM, STRETCHING AND STRENGTHEING. INSTRUCTION IN PROPER POSTURE CONTROL AND BODY MECHANICS. CORE STRENGTHEING. MAY NEED TO CONSIDER AQUATIC THERAPY BUT PATIENT AND BOYFRIEND RELUCTANT DO TO DIFFICULTY DRESSING BEFORE AND AFTER. - Subjective Findings: Work/Leisure: UNEMPLOYEED. Disability: YES. Present symptoms: LEFT ANKLE AND FOOT PAIN AND TINGLING. Present since: DEC 25 2018. Pain Scale: WORST 7/10, LEAST 1/10. Currently: 10. Commenced as a result of: FALL IN THE BATHROOM AT HOME. Symptoms at onset: PAIN AND SWELLING LEFT ANKLE. Worse: STANDING AND WALKING. Better: ELEVATING, SITTING - NOT ON IT. Disturbed sleep: NO. Previous history/Previous treatment: UNREMARKABLE. Gait: PATIENT REPORTS SHE HAS BEEN USING A CANE FOR A LONG TIME. DIDN'T BRING IT IN TODAY BECAUSE CAN HANG ON TO BOYFRIEND. Accidents: NO. Unexplained weight loss: NO. Imaging: LEFT FOOT/ANKLE X-RAY 12/26/18 SHOWING DIFFUSE SOFT TISSUE SWELLING AND ARTHRITIS. PMH: ANXIETY, ASTHMA, DEPRESSION, HEADACHE, LBP, KNEE OA, ONYCHOMYCOSIS, OSTEOPOROSIS, SHORTNESS OF BREATH, STROKE JUN 09 2015. RIGHT FOOT FRACTURE MARCH 2018. PLOF (Prior Level of Function): PATIENT REPORTS SHE WAS GETTING AROUND PRETTY GOOD BEFORE THE FALL 12/25/18 BUT HER LEGS HAVE BEEN WEAK FOR AWHILE. HASN'T BEEN IN THE HOSPITAL SINCE STROKE 2014. - Objective Sitting/Standing Posture: POOR. Other Observations: THIS PATIENT AMBULATES INTO PT HANGING ONTO HER BOYFRIEND AND TAKING SLOW SHORT STEPS LIMPING ON LLE. GAIT IS ANTALGIC AND SLOW. UE DEPENDENT TO TRANSFER FROM SIT TO STAND. UNABLE TO SLS ON RIGHT LE MORE THAN A SECOND OR TWO WITHOUT UE ASSIT. UNABLE TO SLS ON LLE WITHOUT UE ASSIST. Motor deficit: ANDIE LE WEAKNESS GROSSLY 3+ TO 4-/5 WITH MMT'ING EXCEPT LEFT ANKLE 2+/5 ALL PLANES. Sensory deficit: NO. ROM deficit: LEFT ANKLE ROM DECREASE BY APPROX 10% ALL PLANES COMPARED TO THE RIGHT. SHE IS ABLE TO WIGGLE ALL OF HER TOES. AROM TESTING OF LEFT ANKLE INCREASES HER PAIN. Core strength: POOR. Palpation: C/O TENDERNESS WITH LIGHT PALPATION OF ENTIRE LEFT ANKLE AND FOOT WITHOUT SPECIFIC COMPLAINT. MILD LEFT FOOT AND ANKLE SWELLING. ECCYMOSIS OF ALL TOES STILL VISIBLE. OTHER: PATIENT DOES NOT HAVE MUCH USE OF LEFT HAND AT ALL SINCE STROKE 2015. - Goals Goal 1:: INDEP AND SAFE GAIT ON ALL SURFACES WITH LEAST ASSISTIVE DEVICE Goal Time Frame: 4-6 Weeks Goal 2:: DECREASE C/O LEFT FOOT AND ANKLE PAIN Goal Time Frame: 4-6 Weeks Goal 3:: IMPROVE TRANSFER, STANDING AND WALKING FUNCTION. Goal Time Frame: 4-6 Weeks Goal 4:: INDEP HEP FOR CORE AND ANDIE LE ROM, STRETCHING AND STRENGTHING FOR CONTINUED IMPROVEMENT ONCE FORMAL PHYSICAL THERAPY CONCLUDES. Goal Time Frame: 4-6 Weeks - Rehabilitation Potential Rehabilitation Potential: Fair - Anticipated Interventions Patient/Client Instruction: Educate patient on: Condition, Plan of Care, Risk Factors, Benefits of Fitness Program For the Purpose of:: To improve self management Therapeutic Exercise to Include: Strength training, Balance training, Body mechanics, Postural training, Flexibilty training, Gait and locomotor training, In an aquatic setting, Passive ROM, Active ROM, Dynamic Lumbar Stabilization For the Purpose of:: To decrease pain, To increase ROM, To improve muscle performance and motor function, To increase tolerance to activity/condition/position, To improve ability of physical actions for home/community/work/leisure Manual Therapy Techniques to Include: Passive ROM, Soft tissue mobilization For the Purpose of:: To decrease pain, To decrease swelling/inflammation, To increase ROM, To improve nutrient delivery to tissue Thank you for the opportunity to evaluate your patient. For Medicare and Medicare HMO plans, please review the plan of care and approve it. It will need to be FAXED BACK to us at [phone] for Medicare purposes. For Medicare only, by signing this I certify the plan of care. Please let me know if there are questions or concerns regarding this plan of care. Physician Signature: Date:
--- NOTE | 2019-02-08 14:58 | HP.PTEVAL_ITS ---
Patient's Visit Information FLOYD MUELLER is a 59 year old F referred to Physical Therapy by Zachary Vargas MD with a diagnosis of STROKE, LEFT AFSHIN, FALLS.. Date of Evaluation: 01/12/19 Physical Therapist: Didi Ku PT, Cert MDT - Visit Plan Frequency: 2-3x /Week Duration: 4-6 Weeks Plan: D/C. PATIENT AND PATIENTS BOYFRIEND AGREEABLE. - Subjective Findings: Work/Leisure: UNEMPLOYEED. Disability: YES. Present symptoms: LEFT ANKLE AND FOOT PAIN AND TINGLING. Present since: DEC 25 2018. Pain Scale: WORST 7/10, LEAST 1/10. Currently: 02/15. Commenced as a result of: FALL IN THE BATHROOM AT HOME. Symptoms at onset: PAIN AND SWELLING LEFT ANKLE. Worse: STANDING AND WALKING. Better: ELEVATING, SITTING - NOT ON IT. Disturbed sleep: NO. Previous history/Previous treatment: UNREMARKABLE. G ait: PATIENT REPORTS SHE HAS BEEN USING A CANE FOR A LONG TIME. DIDN'T BRING IT IN TODAY BECAUSE CAN HANG ON TO BOYFRIEND. Accidents: NO. Unexplained weight loss: NO. Imaging: LEFT FOOT/ANKLE X-RAY 12/26/18 SHOWING DIFFUSE SOFT TISSUE SWELLING AND ARTHRITIS. PMH: ANXIETY, ASTHMA, DEPRESSION, HEADACHE, LBP, KNEE OA, ONYCHOMYCOSIS, OSTEOPOROSIS, SHORTNESS OF BREATH, STROKE JUN 09 2015. RIGHT FOOT FRACTURE MARCH 2018. PLOF (Prior Level of Function): PATIENT REPORTS SHE WAS GETTING AROUND PRETTY GOOD BEFORE THE FALL 12/25/18 BUT HER LEGS HAVE BEEN WEAK FOR AWHILE. HASN'T BEEN IN THE HOSPITAL SINCE STROKE 2014. - Pain right lateral rib cage Pain Intensity (Out of 10): 7 left foot Pain Intensity (Out of 10): 0 - Objective Sitting/Standing Posture: POOR. Other Observations: THIS PATIENT AMBULATES INTO PT HANGING ONTO HER BOYFRIEND AND TAKING SLOW SHORT STEPS LIMPING ON LLE. GAIT IS ANTALGIC AND SLOW. UE DEPENDENT TO TRANSFER FROM SIT TO STAND. UNABLE TO SLS ON RIGHT LE MORE THAN A SECOND OR TWO WITHOUT UE ASSIT. UNABLE TO SLS ON LLE WITHOUT UE ASSIST. Motor deficit: ANDIE LE WEAKNESS GROSSLY 3+ TO 4-/5 WITH MMT'ING EXCEPT LEFT ANKLE 2+/5 ALL PLANES. Sensory deficit: NO. ROM deficit: LEFT ANKLE ROM DECREASE BY APPROX 10% ALL PLANES COMPARED TO THE RIGHT. SHE IS ABLE TO WIGGLE ALL OF HER TOES. AROM TESTING OF LEFT ANKLE INCREASES HER PAIN. Core strength: POOR. Palpation: C/O TENDERNESS WITH LIGHT PALPATION OF ENTIRE LEFT ANKLE AND FOOT WITHOUT SPECIFIC COMPLAINT. MILD LEFT FOOT AND ANKLE SWELLING. ECCYMOSIS OF ALL TOES STILL VISIBLE. OTHER: PATIENT DOES NOT HAVE MUCH USE OF LEFT HAND AT ALL SINCE STROKE 2015. - Goals Goal 1:: INDEP AND SAFE GAIT ON ALL SURFACES WITH LEAST ASSISTIVE DEVICE Goal Time Frame: 4-6 Weeks Goal 2:: DECREASE C/O LEFT FOOT AND ANKLE PAIN Goal Time Frame: 4-6 Weeks Goal 3:: IMPROVE TRANSFER, STANDING AND WALKING FUNCTION. Goal Time Frame: 4-6 Weeks Goal 4:: INDEP HEP FOR CORE AND ANDIE LE ROM, STRETCHING AND STRENGTHING FOR CONTINUED IMPROVEMENT ONCE FORMAL PHYSICAL THERAPY CONCLUDES. Goal Time Frame: 4-6 Weeks - Rehabilitation Potential Rehabilitation Potential: Fair - Anticipated Interventions Patient/Client Instruction: Educate patient on: Condition, Plan of Care, Risk Factors, Benefits of Fitness Program For the Purpose of:: To improve self management Therapeutic Exercise to Include: Strength training, Balance training, Body mechanics, Postural training, Flexibilty training, Gait and locomotor training, In an aquatic setting, Passive ROM, Active ROM, Dynamic Lumbar Stabilization For the Purpose of:: To decrease pain, To increase ROM, To improve muscle performance and motor function, To increase tolerance to activity/condition/po sition, To improve ability of physical actions for home/community/work/leisure Manual Therapy Techniques to Include: Passive ROM, Soft tissue mobilization For the Purpose of:: To decrease pain, To decrease swelling/inflammation, To increase ROM, To improve nutrient delivery to tissue Thank you for the opportunity to evaluate your patient. For Medicare and Medicare HMO plans, please review the plan of care and approve it. It will need to be FAXED BACK to us at [phone] for Medicare purposes. For Medicare only, by signing this I certify the plan of care. Please let me know if there are questions or concerns regarding this plan of care. Physician Signature: Date:
--- NOTE | 2019-02-08 14:58 | HP.PTDCSUM ---
HP - PT D/C Summary It has been my pleasure to treat FLOYD MUELLER under orders from Zachary Vargas MD, for the diagnosis of STROKE, LEFT AFSHIN, FALLS. for a total of 10 visit(s). Discharge Date: Please see the following information for a summary of their discharge status. - Subjective Subjective: PATIENT AND HER BOYFRIEND REPORT THAT SHE IS A LOT STRONGER. HASN'T FALLEN SINCE STARTING PT. VERY HAPPY WITH PROGRESS. REPORTS HER FOOT AND ANKLE ARE GOOD NOW. WORKING ON HEP DAILY - Pain right lateral rib cage Pain Intensity (Out of 10): 7 left foot Pain Intensity (Out of 10): 0 - Overall Improvement % Improvement: 100 - Objective Objective/Function: ALL GOALS MET. INDEP HEP. NO RECENT FALLS. NO C/O LEFT FOOT OR ANKLE PAIN NOW. LEFS SCORE HAS IMPROVED FROM 13 TO 39. UPON EXAM TODAY PATIENT DEMONSTRATES INDEP GAIT WITH STRAIGHT CANE WITHOUT LIMPING OR LOB BUT SHE STILL WALKS CAUTIOUSLY. STRIDE LENGHT HAS IMPROVED. GOOD HEEL STRIKE AND TOE OFF PHASES OF GAIT LEFT FOOT NOW. SHE IS ABLE TO TRANSFER INDEP'LY FROM SIT TO STAND WITHOUT UE ASSIST. Motor deficit: ANDIE LE WEAKNESS GROSSLY 4- TO 4/5 WITH MMT'ING INCLUDING LEFT ANKLE. Sensory deficit: NO. ROM deficit: WFL. NO C/O PAIN WITH LEFT ANKLE TESTING TODAY. Core strength: POOR - Goals Goal 1:: INDEP AND SAFE GAIT ON ALL SURFACES WITH LEAST ASSISTIVE DEVICE Goal Progress: Goal Met Goal 2:: DECREASE C/O LEFT FOOT AND ANKLE PAIN Goal Progress: Goal Met Goal 3:: IMPROVE TRANSFER, STANDING AND WALKING FUNCTION. Goal Progress: Goal Met Goal 4:: INDEP HEP FOR CORE AND ANDIE LE ROM, STRETCHING AND STRENGTHING FOR CONTINUED IMPROVEMENT ONCE FORMAL PHYSICAL THERAPY CONCLUDES. Goal Progress: Goal Met - Plan Plan: D/C. PATIENT AND PATIENTS BOYFRIEND AGREEABLE. - D/C Information If there are questions or concerns regarding this patient's physical therapy, please feel free to call me at [phone]. Thank you for the referral of this patient. Sincerely, Didi Ku, PT, Cert MDT
== END 2019-02-08 17:10 | disposition home or self-care (01) ==
LOC: PT 11:00
PROVIDERS: Family Provider Family Medicine Geriatric Medicine; PCP Family Medicine Geriatric Medicine; Referring Provider Family Medicine Geriatric Medicine; Visit Provider Family Medicine Geriatric Medicine
DX: I69.354 Hemiplegia and hemiparesis following cerebral infarction affecting left non-dominant side (principal); Z91.81 History of falling
CPT/HCPCS: 97110; 97162; 97530

== ENCOUNTER → 2019-05-29 | Outpatient (CLI) | payer MEDICAID, SELFPAY ==
[2019-05-29 12:27] LABS: Absolute Neutrophil Count 4.1 X10^3/uL (2.0-7.7); Basophil# 0.09 X10^3/uL; Basophil% 1.1 % (0-1); Eosinophil# 0.14 X10^3/uL; Eosinophils% 1.6 % (0-5); Hematocrit 44.2 % (37-47); Hemoglobin 14.6 g/dL (12.0-15.0); Mean Corpuscular Hgb 31.3 pg (27.0-32.0); Mean Corpuscular Volume 94.8 fL (81-99); Mean Platelet Vol. 9.3 fl (6.2-12.0); Monocyte# 0.69 X10^3/uL; Monocyte% 8.1 % (0-10); NRBC Flagged by Analyzer 0 % (0-5); Neutrophil # 4.14 X10^3/uL (2.7-7.7); Neutrophil % 48.8 % (47-70); Platelet Count 388 K/mm3 (150-450); RBC Distribution Width CV 13.5 % (11.6-14.6); RBC Distribution Width SD 47.1 fl (35.1-43.9); Red Blood Count 4.66 M/mm3 (4.2-5.4); White Blood Count 8.5 K/mm3 (4.4-11.0)
[2019-05-29 13:05] LABS: ALB/GLOB Ratio 0.8 RATIO (0.9-2.4); AST(SGOT) 17 U/L (15-37); Alanine Aminotransfer ALT/SGPT 18 U/L (13-56); Albumin, Serum 3.5 g/dL (3.2-5.0); Alkaline Phosphatase 160 U/L (45-117); Anion Gap 8 (5-15); BUN 11 mg/dL (7-18); BUN/Creat Ratio 12.9 RATIO (10-20); Calcium,Total 8.8 mg/dL (8.5-10.1); Chloride 104 mmol/L (98-107); Creatinine, Serum 0.86 mg/dL (0.55-1.02); EST Glomerular Filtration Rate 72 mL/min (>60); Est Glom Filt Rate - Afr Amer 88 mL/min (>60); Globulin 4.2 g/dL (2.2-4.2); Glucose 72 mg/dL (74-106); Potassium 3.8 mmol/L (3.5-5.1); Protein, Total 7.7 g/dL (6.4-8.2); Sodium Level 139 mmol/L (136-145); Thyroid Stim Hormone (TSH) 2.61 uIU/mL (0.358-3.74)
[2019-05-29 13:34] LABS: Vitamin D,25 Hydroxy 43.8 ng/mL (29.95-100.01)
== END | disposition home or self-care (01) ==
LOC: POLAB3 11:37
PROVIDERS: Family Provider Family Medicine Geriatric Medicine; PCP Family Medicine Geriatric Medicine; Visit Provider Family Medicine Geriatric Medicine
DX: E55.9 Vitamin D deficiency, unspecified (principal); R53.83 Other fatigue
CPT/HCPCS: 36415; 80053; 82306; 84443; 85025

== ENCOUNTER → 2019-09-19 | Outpatient (CLI) | payer MEDICAID, SELFPAY ==
--- NOTE | 2019-09-19 11:27 | BI_ITS ---
MAMMOGRAPHY - BILATERAL SCREENING REASON FOR EXAM: Female, 59 years old. Routine annual screening examination. PERTINENT HISTORY: Non-contributory. TECHNIQUE: Digital bilateral breast jacqueline (3D mammographic acquisition) in the CC and MLO projections. 2-D mediolateral oblique (MLO) and craniocaudad (CC) views of both breasts were obtained. CAD: Full Field Digital Mammography with Computer Added Detection was performed. COMPARISON: Comparison is made with prior study dated June 04, 2017 and February 26, 2016. FINDINGS: Breast Composition: There are scattered areas of fibroglandular density. There are no dominant masses or suspicious calcifications. No other significant abnormalities are identified. There has been no significant change since the prior study. BI/SCREEN MAMM (CAD) W/JACQUELINE BILAT IMPRESSION: Stable bilateral screening mammogram. Yearly follow-up mammogram recommended. (A) ASSESSMENT CATEGORY: BIRADS Category 1: Negative. A letter regarding these results will be sent to the patient by the facility within 30 days. Approximately 10% of breast cancers are not detected by mammography. A normal mammogram should not delay biopsy of a clinically suspicious abnormality. [id number] Electronically Signed: Damon Hayes, at 14:10 EST , Service support ,
== END | disposition home or self-care (01) ==
PROVIDERS: Family Provider Family Medicine Geriatric Medicine; PCP Family Medicine Geriatric Medicine; Referring Provider Family Medicine Geriatric Medicine; Visit Provider Family Medicine Geriatric Medicine
DX: Z12.31 Encounter for screening mammogram for malignant neoplasm of breast (principal)
CPT/HCPCS: 77063; 77067

== ENCOUNTER → 2019-11-27 11:51 | Outpatient (CLI) | payer MEDICAID, SELFPAY ==
[2019-11-27 14:07] LABS: Absolute Lymphocyte Count 3.52 X10^3/uL (0.83-4.51); Absolute Neutrophil Count 3.8 X10^3/uL (2.0-7.7); Basophil# 0.09 X10^3/uL; Basophil% 1.1 % (0-1); Eosinophil# 0.13 X10^3/uL; Eosinophils% 1.6 % (0-5); Hematocrit 43.8 % (37-47); Hemoglobin 13.3 g/dL (12.0-15.0); Lymphocyte # 3.52 X10^3/ul (4.0); Lymphocyte % 42.7 % (19-41); Mean Corp Hgb Conc 30.4 g/dL (32-36); Mean Corpuscular Hgb 28.4 pg (27.0-32.0); Mean Corpuscular Volume 93.4 fL (81-99); Mean Platelet Vol. 9.3 fl (6.2-12.0); Monocyte# 0.71 X10^3/uL; Monocyte% 8.6 % (0-10); NRBC Flagged by Analyzer 0 % (0-5); Neutrophil # 3.76 X10^3/uL (2.7-7.7); Neutrophil % 45.6 % (47-70); Platelet Count 377 K/mm3 (150-450); RBC Distribution Width CV 14.7 % (11.6-14.6); RBC Distribution Width SD 50.4 fl (35.1-43.9); Red Blood Count 4.69 M/mm3 (4.2-5.4); White Blood Count 8.2 K/mm3 (4.4-11.0)
[2019-11-27 14:29] LABS: Vitamin D,25 Hydroxy 38.7 ng/mL (29.95-100.01)
[2019-11-27 14:43] LABS: ALB/GLOB Ratio 0.8 RATIO (0.9-2.4); AST(SGOT) 10 U/L (15-37); Alanine Aminotransfer ALT/SGPT 25 U/L (13-56); Albumin, Serum 3.1 g/dL (3.2-5.0); Alkaline Phosphatase 163 U/L (45-117); Anion Gap 7 (5-15); BUN 11 mg/dL (7-18); BUN/Creat Ratio 11.1 RATIO (10-20); Calcium,Total 8.8 mg/dL (8.5-10.1); Chloride 107 mmol/L (98-107); Creatinine, Serum 0.99 mg/dL (0.55-1.02); EST Glomerular Filtration Rate 61 mL/min (>60); Est Glom Filt Rate - Afr Amer 74 mL/min (>60); Globulin 4.1 g/dL (2.2-4.2); Glucose 63 mg/dL (74-106); Potassium 3.5 mmol/L (3.5-5.1); Protein, Total 7.2 g/dL (6.4-8.2); Sodium Level 141 mmol/L (136-145); Thyroid Stim Hormone (TSH) 3.09 uIU/mL (0.358-3.74)
== END ==
PROVIDERS: PCP Family Medicine Geriatric Medicine; Visit Provider Family Medicine Geriatric Medicine
DX: E55.9 Vitamin D deficiency, unspecified (principal); R53.83 Other fatigue
CPT/HCPCS: 36415; 80053; 82306; 84443; 85025

== ENCOUNTER 2019-12-10 19:45 | Emergency (ER) | payer MEDICAID, SELFPAY ==
[2019-12-10 19:46] VITALS: BP 115/66; PULSE 99; RESP 16; TEMP 36.7; O2SAT 93; BMI 25.7
--- NOTE | 2019-12-10 20:00 | ED.DCSUM_ITS ---
- ER Visit Summary Date of Service: 12/10/19 Chief Complaint: Choked on a pork chop History of Present Illness: The patient is a 59 F. Prior stroke with left-sided weakness. Patient had trouble falling in the past. She made poor drops at home. She was eating them and choked. called the squad. Heimlich was performed and they were able to remove a piece of pork chop with Stephie forceps. Patient states he feels fine now. No trouble breathing or swallowing. Nurses did give a glass of water and she was able to swallow without any difficulty. Physical Examination: Middle-aged female no acute distress vital signs stable afebrile. Pulse ox 90% room air no signs of hypoxia. Patient is a smoker. H EENT exam unremarkable. Posterior pharynx unremarkable. No trouble swallowing or breathing. No stridor or drooling. No respiratory distress. Neck nontender. Lungs clear to auscultation bilaterally. Heart regular rhythm no murmur. Abdomen soft nontender. Extremities he had a prior stroke and has weakness of the left upper and lower extremity which is not new. Right side extremities are unremarkable with normal payroll and benefits specialist strength dorsi and plantar flexion. Neurologically old stroke symptoms otherwise no acute neurologic findings. Test Results: None Emergency Department Course and Treatment: Patient gave the patient a glass of water she drank and swallowed it without any difficulty. Treatment Plan: Discharged home. Follow-up with PCP as needed. Stop smoking. Disposition: Discharge Impression: Choking episode History of stroke with left-sided weakness This note was generated with [employer] dictation software. It may contain incorrect words, spelling, and punctuation that were not noted in review of the chart prior to signing ED Disposition - Plan for ED Patient: Referrals: Zachary Vargas Chi, MD [Primary Care Provider] -
--- NOTE | 2019-12-10 20:04 | ED.DEP ---
ED Disposition - Plan for ED Patient: Disposition: Home or Assisted Living Instructions: [facility] (Adult) Referrals: Zachary Vargas Chi, MD [Primary Care Provider] - As Needed Additional Instructions: Stop smoking !!
[2019-12-10 20:15] VITALS: BP 103/69; PULSE 103; RESP 23; O2SAT 97
== END 2019-12-10 20:15 | disposition home or self-care (01) ==
LOC: ED 20:05
PROVIDERS: Emergency Provider Emergency Medicine; PCP Family Medicine Geriatric Medicine
DX: R09.89 Other specified symptoms and signs involving the circulatory and respiratory systems (principal); I63.9 Cerebral infarction, unspecified; I69.354 Hemiplegia and hemiparesis following cerebral infarction affecting left non-dominant side
CPT/HCPCS: 99284

== ENCOUNTER 2020-05-20 17:28 | Emergency (ER) | payer MEDICAID, SELFPAY ==
[2020-05-20 17:29] VITALS: BP 136/68; PULSE 113; RESP 22; TEMP 36.7; O2SAT 96; BMI 23.9
--- NOTE | 2020-05-20 18:05 | CT_ITS ---
STUDY: CT CERVICAL SPINE WITHOUT CONTRAST REASON FOR EXAM: Female, 60 years old. FALL, LT SIDED RIB PAIN RADIATION DOSAGE (If Supplied By Facility): CTDIvol = ( 16.74 ) mGy, DLP = ( 348.11 ) mGycm TECHNIQUE: High resolution transaxial imaging was performed without contrast material. Sagittal and coronal images were reconstructed. Individualized dose optimization techniques were used for this CT. COMPARISON: None FINDINGS: Normal craniovertebral junction. Normal anterior atlantoaxial articulation. Normal odontoid process. Normal cervical lordosis. Normal vertebral bodies and posterior osseous elements. C2-3: Normal endplates. Normal disc height and morphology. Normal central canal and intervertebral neuroforamina. C3-4: There is mild disc space narrowing with mild posterior disc osteophyte complex. Mild right foraminal stenosis no left foraminal stenosis or central canal stenosis C4-5: There is mild posterior bulging annulus. There are significant right facet degenerative changes, mild right foraminal stenosis no central canal or left foraminal stenosis C5-6: Normal endplates. Normal disc height and morphology. Normal central canal and intervertebral neuroforamina. C6-7: Normal endplates. Normal disc height and morphology. Normal central canal and intervertebral neuroforamina. C7-T1: There is mild anterior compression fracture of T1. There is respiratory motion artifact. There is mild cortical deformity left anterior lateral second rib. There is mild posterior bulging annulus. Normal central canal and intervertebral neuroforamina. Normal visualized soft tissue structures. There are upper lobe COPD changes and pulmonary scarring. CT/Spine Cervical without Contras IMPRESSION: multilevel spondylosis Upper lobe COPD changes, mild pulmonary scarring Mild anterior compression fracture of T1 of unknown age, this could be further evaluated with MRI. Mild cortical deformity likely nondisplaced left anterolateral second rib fracture Electronically Signed: Shailesh Israel, at 19:30 EDT Tel , Service support ,
--- NOTE | 2020-05-20 18:05 | CT_ITS ---
STUDY: CT BRAIN WITHOUT CONTRAST REASON FOR EXAM: Female, 60 years old. FALL, LT SIDED RIB PAIN RADIATION DOSAGE (If Supplied By Facility): CTDIvol = ( 44.99 ) mGy, DLP = ( 762.36 ) mGycm TECHNIQUE: Transaxial CT imaging of the brain was performed without administration of intravenous contrast material. Individualized dose optimization techniques were used for this CT. COMPARISON: Previous study of 07/06/2015 FINDINGS: Normal soft tissue structures. Normal calvarium. There is a large region of encephalomalacia of the right frontoparietal region. There is compensatory dilatation of the right lateral ventricle. There are areas of decreased attenuation within the white matter tracts of the supratentorial brain, consistent with microvascular disease changes. There is a punctate lacunar infarct of the right caudate head. Normal brainstem. Normal cerebellum. There is no intracranial hemorrhage. There are no findings of an acute ischemic infarction. There is minimal mucosal thickening of the right maxillary sinus. CT/Brain/Head without Contrast IMPRESSION: Large region of encephalomalacia of the right frontoparietal region and region of previously demonstrated parenchymal hemorrhage with compensatory dilatation of the right lateral ventricle. Chronic involutional changes. Old punctate lacunar infarct of the right caudate head. Electronically Signed: Jim Crowley MD at 19:04 EDT , Service support ,
--- NOTE | 2020-05-20 18:06 | CT_ITS ---
STUDY: CT CHEST WITHOUT CONTRAST REASON FOR EXAM: Female, 60 years old. FALL, LT SIDED RIB PAIN RADIATION DOSAGE (If Supplied By Facility): CTDIvol = ( 15.21 ) mGy, DLP = ( 727.69 ) mGycm TECHNIQUE: Transaxial imaging was performed without the administration of intravenous contrast material. Individualized dose optimization techniques were used for this CT. COMPARISON: None. FINDINGS: The exam is limited due to significant respiratory motion There are scattered groundglass pulmonary opacities. There is no demonstrated pleural abnormality. Normal heart and pericardium. Normal mediastinum. Normal hilar regions. Normal unenhanced pulmonary arteries. Normal aorta arch and descending thoracic aorta. There are multiple acute nondisplaced to mildly displaced left anterolateral rib fractures. There are multiple old right rib fractures. There are old left lower posterior rib fractures. The most inferior ribs are not included on the [id number]-up-kfns. There is left chest wall hematoma. There is no pneumothorax. There is a midsternal fracture which is most likely old. There is a mild to moderate compression fracture of T4 which is suspicious for acute fracture age indeterminate however. There is also mild compression fracture of T1 of unknown unknown age There is a small hiatal hernia. There is significant wall thickening of the distal esophagus. CT/Chest without Contrast IMPRESSION: multiple acute nondisplaced to mildly displaced left anterolateral rib fractures. There are multiple old right rib fractures. There are old left lower posterior fractures. The most inferior ribs are not included on the jippe-po-myuc. Mid sternal fracture which is most likely old left lateral mild chest wall hematoma mild to moderate compression fracture of T4 which is suspicious for acute fracture age indeterminate however. There is also mild compression fracture of T1 of unknown unknown age Evaluation for small pulmonary nodules is limited due to significant respiratory motion, scattered pulmonary opacities hypoventilatory changes versus pneumonia, atypical viral pneumonia cannot be excluded Small hiatal hernia, significant wall thickening of the distal esophagus secondary to reflux esophagitis and/or esophageal malignancy. Endoscopy is recommended to exclude malignancy Electronically Signed: Shailesh Israel, at 19:06 EDT Tel , Service support ,
--- NOTE | 2020-05-20 18:07 | ED.VIS.GEN ---
History of Present Illness Chief Complaint: Fall Informant: Patient Onset: Today Current Severity: Moderate Maximum Severity: Moderate Narrative: Presents after a fall down 4 steps at home. Patient states she did not have a good grasp on the handrail and lost her balance and fell. She hit the back of her head and her left ribs against the stairs. She is complaining of left rib pain with some shortness of breath. 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 (2) Hemorrhagic cerebrovascular accident (CVA) Status: Chronic Comment: hemorrhagic infarction involving the right frontal?temporal, frontal?parietal, and perkins radiata Chronic infarction involving the right frontal and basal qanglia regions (3) Hyperlipidemia Status: Chronic (4) Nicotine abuse Status: Chronic Past Medical History - Allergies and Home Meds Allergies/Adverse Reactions: Allergies No Known Allergies Allergy (Verified 12/29/19 10:45) Primary Care Physician: Zachary Vargas Chi, MD [Primary Care Provider] - Prior records reviewed: Yes Smoking Status: Current every day smoker - Family History Maternal Family History: Family History (This Medical Record has been edited. Action required.) Mother Diabetes Family History: Reports: Unknown Paternal Family History: Family History (This Medical Record has been edited. Action required.) Mother Diabetes Family History: Reports: Unknown Review of Systems General: Denies: Chills, Fever Eyes: Denies: Visual changes - bilaterally ENT: Denies: Bilateral ear pain Cardiovascular: Reports: Chest pain - Left rib pain Respiratory: Reports: Dyspnea. Denies: Cough Gastrointestinal: Denies: Abdominal pain, Vomiting Skin: Denies: Rash, Wounds Neurological: Reports: Headache Hematologic: Denies: Easy bruising, Easy bleeding Allergy: Denies: Uticaria Physical Exam Vital Signs/Narrative: Vital Signs Temp Pulse Resp BP Pulse Ox 05/20/20 17:29 98.0 F 113 H 22 H 136/68 H 96 Inital Vital Signs reviewed: Yes General: Well nourished, Well developed Head: Normocephalic ENT: Moist mucous membranes Neck: Supple Cardiovascular: Regular rate, Regular rhythm Respiratory: No distress, CTA bilaterally, Chest tenderness - Left chest wall tenderness. No crepitus. Abdomen: Soft, Nontender Back: Nontender Extremities: Nontender Skin: Normal color, No rash Neurological: Alert, Oriented x3 Psychological: Normal affect Diagnostic/Tx/Re-eval Impressions Brain CT 05/20/20 18:05 IMPRESSION: Large region of encephalomalacia of the right frontoparietal region and region of previously demonstrated parenchymal hemorrhage with compensatory dilatation of the right lateral ventricle. Chronic involutional changes. Old punctate lacunar infarct of the right caudate head. Electronically Signed: Jim Crowley MD at 19:04 EDT , Service support , Cervical Spine CT 05/20/20 18:05 IMPRESSION: multilevel spondylosis Upper lobe COPD changes, mild pulmonary scarring Mild anterior compression fracture of T1 of unknown age, this could be further evaluated with MRI. Mild cortical deformity likely nondisplaced left anterolateral second rib fracture Electronically Signed: Shailesh Israel at 19:30 EDT Tel , Service support , Chest CT 05/20/20 18:06 IMPRESSION: multiple acute nondisplaced to mildly displaced left anterolateral rib fractures. There are multiple old right rib fractures. There are old left lower posterior fractures. The most inferior ribs are not included on the [id number]. Mid sternal fracture which is most likely old left lateral mild chest wall hematoma mild to moderate compression fracture of T4 which is suspicious for acute fracture age indeterminate however. There is also mild compression fracture of T1 of unknown unknown age Evaluation for small pulmonary nodules is limited due to significant respiratory motion, scattered pulmonary opacities hypoventilatory changes versus pneumonia, atypical viral pneumonia cannot be excluded Small hiatal hernia, significant wall thickening of the distal esophagus secondary to reflux esophagitis and/or esophageal malignancy. Endoscopy is recommended to exclude malignancy Electronically Signed: Shailesh Israel at 19:06 EDT Tel , Service support , 05/20/20 18:05 CT Cervical [Spine Cervical without Contras] [CT] Stat CT Head [Brain/Head without Contrast] [CT] Stat 05/20/20 18:06 CT Chest [Chest without Contrast] [CT] Stat Laboratory Results 05/20/20 19:25 WBC 10.3 RBC 4.42 Hgb 12.8 Hct 39.9 MCV 90.3 MCH 29.0 MCHC 32.1 RDW Std Deviation 50.3 H RDW Coeff of Jeanine 15.4 H Plt Count 417 MPV 8.7 Immature Gran % (Auto) 0.400 Neut % (Auto) 78.9 H Lymph % (Auto) 13.2 L Barber % (Auto) 7.3 Eos % (Auto) 0.0 Baso % (Auto) 0.2 Absolute Neuts (auto) 8.1 H Absolute Lymphs (auto) 1.36 Nucleated RBC % 0 - Medical Decision Making Patient had initially been ordered IM morphine for pain control, however did not get this prior to CT images being done. CT does confirm multiple left-sided rib fractures. No evidence of pneumothorax. She has an old appearing sternal fracture and patient does confirm she had previously broken her sternum. She has at least 2 compression fractures in her thoracic spine of indeterminate age. On repeat evaluation patient still uncomfortable. IV line is started and blood work is obtained. She is given morphine for pain control. Nursing staff does note her O2 sat is 88% on room air and is placed on nasal cannula. Pulse ox the time of my re-eval is 96% on 2 L nasal cannula. She did agree to transfer to a trauma center. I will speak with [facility]. ED Disposition - Plan for ED Patient: Disposition: [facility] Diagnosis: Fall, Multiple rib fractures Referrals: Zachary Vargas Chi, MD [Primary Care Provider] -
[2020-05-20] MEDS: Morphine 4 MG/ML Syringe IV (19:23)
[2020-05-20] MEDS: Ondansetron 4 MG/2 ML Vial IV (19:24)
[2020-05-20 19:32] VITALS: BP 109/81; PULSE 101; RESP 17; O2SAT 88
[2020-05-20 19:36] LABS: Absolute Lymphocyte Count 1.36 X10^3/uL (0.83-4.51); Absolute Neutrophil Count 8.1 X10^3/uL (2.0-7.7); Basophil# 0.02 X10^3/uL; Basophil% 0.2 % (0-1); Hematocrit 39.9 % (37-47); Hemoglobin 12.8 g/dL (12.0-15.0); Lymphocyte # 1.36 X10^3/ul (4.0); Lymphocyte % 13.2 % (19-41); Mean Corp Hgb Conc 32.1 g/dL (32-36); Mean Corpuscular Volume 90.3 fL (81-99); Mean Platelet Vol. 8.7 fl (6.2-12.0); Monocyte# 0.75 X10^3/uL; Monocyte% 7.3 % (0-10); NRBC Flagged by Analyzer 0 % (0-5); Neutrophil # 8.13 X10^3/uL (2.7-7.7); Neutrophil % 78.9 % (47-70); Platelet Count 417 K/mm3 (150-450); RBC Distribution Width CV 15.4 % (11.6-14.6); RBC Distribution Width SD 50.3 fl (35.1-43.9); Red Blood Count 4.42 M/mm3 (4.2-5.4); White Blood Count 10.3 K/mm3 (4.4-11.0)
[2020-05-20 19:39] VITALS: O2SAT 94
[2020-05-20 20:20] LABS: Prothrombin Time (Protime)PT. 12.9 SECONDS (11.7-14.9)
[2020-05-20 20:21] LABS: Partial Thromboplast Time 28.2 Seconds (24.1-36.2)
[2020-05-20 20:30] VITALS: BP 125/97; PULSE 106; RESP 20; O2SAT 99
[2020-05-20 20:44] LABS: Anion Gap 7 (5-15); BUN 8 mg/dL (7-18); BUN/Creat Ratio 8.9 RATIO (10-20); Calcium,Total 8.4 mg/dL (8.5-10.1); Chloride 98 mmol/L (98-107); EST Glomerular Filtration Rate 68 mL/min (>60); Est Glom Filt Rate - Afr Amer 83 mL/min (>60); Estimated Creatinine Clearance 48.34 ml/min; Glucose 114 mg/dL (74-106); Potassium 3.1 mmol/L (3.5-5.1); Sodium Level 133 mmol/L (136-145)
--- NOTE | 2020-05-20 21:31 | ED.RN ---
transport at bedside. report given. transport denies questions or needs. care assumed by Physicians.
== END 2020-05-20 21:49 | disposition short-term general hospital (02) ==
PROVIDERS: Emergency Provider Emergency Medicine; PCP Family Medicine Geriatric Medicine
DX: S22.42XA Multiple fractures of ribs, left side, initial encounter for closed fracture (principal); E78.5 Hyperlipidemia, unspecified; F17.200 Nicotine dependence, unspecified, uncomplicated; Z86.73 Personal history of transient ischemic attack (TIA), and cerebral infarction without residual deficits; Z79.82 Long term (current) use of aspirin; Z79.899 Other long term (current) drug therapy; W10.9XXA Fall (on) (from) unspecified stairs and steps, initial encounter; Y93.01 Activity, walking, marching and hiking; Y92.009 Unspecified place in unspecified non-institutional (private) residence as the place of occurrence of the external cause; Y99.8 Other external cause status
CPT/HCPCS: 70450; 71250; 72125; 80048; 85025; 85610; 85730; 96374; 96375; 99285; A4216; J2405

== ENCOUNTER → 2020-06-03 | Outpatient (CLI) | payer MEDICAID, SELFPAY ==
[2020-05-20 17:29] VITALS: BMI 23.9
[2020-06-03 17:08] LABS: Absolute Lymphocyte Count 4.19 X10^3/uL (0.83-4.51); Absolute Neutrophil Count 8.6 X10^3/uL (2.0-7.7); Basophil# 0.07 X10^3/uL; Basophil% 0.5 % (0-1); Eosinophil# 0.09 X10^3/uL; Eosinophils% 0.6 % (0-5); Hematocrit 38.5 % (37-47); Hemoglobin 11.9 g/dL (12.0-15.0); Lymphocyte # 4.19 X10^3/ul (4.0); Lymphocyte % 29.8 % (19-41); Mean Corp Hgb Conc 30.9 g/dL (32-36); Mean Corpuscular Volume 90.6 fL (81-99); Mean Platelet Vol. 8.6 fl (6.2-12.0); Monocyte# 1.07 X10^3/uL; Monocyte% 7.6 % (0-10); NRBC Flagged by Analyzer 0 % (0-5); Neutrophil # 8.56 X10^3/uL (2.7-7.7); Platelet Count 707 K/mm3 (150-450); RBC Distribution Width CV 16.8 % (11.6-14.6); RBC Distribution Width SD 53.7 fl (35.1-43.9); Red Blood Count 4.25 M/mm3 (4.2-5.4); White Blood Count 14.1 K/mm3 (4.4-11.0)
[2020-06-03 17:37] LABS: ALB/GLOB Ratio 0.4 RATIO (0.9-2.4); AST(SGOT) 64 U/L (15-37); Alanine Aminotransfer ALT/SGPT 31 U/L (13-56); Alkaline Phosphatase 217 U/L (45-117); Anion Gap 4 (5-15); BUN 7 mg/dL (7-18); BUN/Creat Ratio 9.2 RATIO (10-20); Chloride 104 mmol/L (98-107); Creatinine, Serum 0.76 mg/dL (0.55-1.02); EST Glomerular Filtration Rate 83 mL/min (>60); Est Glom Filt Rate - Afr Amer 100 mL/min (>60); Globulin 5.4 g/dL (2.2-4.2); Glucose 90 mg/dL (74-106); Potassium 5.2 mmol/L (3.5-5.1); Protein, Total 7.4 g/dL (6.4-8.2); Sodium Level 132 mmol/L (136-145); Thyroid Stim Hormone (TSH) 5.19 uIU/mL (0.358-3.74)
[2020-06-03 17:45] LABS: Vitamin D,25 Hydroxy 104.1 ng/mL
== END | disposition home or self-care (01) ==
LOC: POLAB3 16:25
PROVIDERS: PCP Family Medicine Geriatric Medicine; Visit Provider Family Medicine Geriatric Medicine
DX: E55.9 Vitamin D deficiency, unspecified (principal); R53.83 Other fatigue
CPT/HCPCS: 36415; 80053; 82306; 84443; 85025

== ENCOUNTER → 2020-07-10 08:13 | Outpatient (CLI) | payer MEDICAID, SELFPAY ==
--- NOTE | 2020-07-10 08:18 | RAD_ITS ---
STUDY: X-RAY - ESOPHAGUS (BARIUM SWALLOW) WITH FLUOROSCOPY REASON FOR EXAM: Female, 60 years old. DYSPHAGIA, HX STROKE -- 82 FLUORO SEC, 11.95mGy, 24 FLUORO IMAGES TECHNIQUE: 24 view(s) of the esophagus were obtained following swallowing of barium. FLUOROSCOPY TIME (if supplied): (1:22) minutes/seconds COMPARISON: Comparison is made with prior study dated 09/09/2015. FINDINGS: There is no demonstrated esophageal foreign body. There is no demonstrated stricture or mucosal abnormality. Normal gastroesophageal junction, without a demonstrated hiatal hernia. The patient ingested a 12 mm tablet of barium. The tablet strapped in the mid esophagus. Normal visualized aortic arch and descending thoracic aorta. Normal visualized pulmonary parenchyma. Normal visualized osseous structures of the thorax. RAD/Esophagus Dual Contrast IMPRESSION: The ingested tablet of barium is trapped in the mid esophagus. Electronically Signed: Damon Hayes, at 13:35 EDT , Service support ,
== END ==
PROVIDERS: PCP Family Medicine Geriatric Medicine; Referring Provider Family Medicine Geriatric Medicine; Visit Provider Family Medicine Geriatric Medicine
DX: R13.10 Dysphagia, unspecified (principal)
CPT/HCPCS: 74221

== ENCOUNTER → 2020-07-19 | Day surgery (SDC) | payer MEDICAID, SELFPAY ==
[2020-07-16 13:22] VITALS: BMI 23.9
== END | disposition home or self-care (01) ==
LOC: PSN 07-24 11:51
PROVIDERS: Anesthesiology; PCP Family Medicine Geriatric Medicine; Referring Provider Family Medicine Geriatric Medicine; Visit Provider Surgery
DX: Z11.59 Encounter for screening for other viral diseases (principal)
CPT/HCPCS: 87635; C9803; U0003

== ENCOUNTER 2020-07-22 15:35 | Inpatient (IN) | payer MEDICAID, SELFPAY ==
[2020-07-16 13:22] VITALS: BMI 23.9
[2020-07-22] VITALS (9 sets, daily range): BP systolic 102–117; BP diastolic 64–94; PULSE 88–103; RESP 18–20; TEMP 36.3–36.5; O2SAT 88–96; BMI 23.4; BMI 23.5; BMI 21.1
--- NOTE | 2020-07-22 15:55 | RAD_ITS ---
STUDY: X-RAY - PELVIS AND LEFT HIP REASON FOR EXAM: Female, 60 years old. FALL TECHNIQUE: 3 views of the pelvis and hip. COMPARISON: None. FINDINGS: There is a non-specific bowel gas pattern. Normal visualized soft tissue structures. Normal bilateral iliac wings, sacroiliac joints and visualized sacrum. Normal bilateral superior and inferior pubic rami. Normal pubic symphysis. Normal bilateral ischial tuberosities. Acute impacted fracture the subcapital femoral neck. Normal acetabulum. Normal hip joint. RAD/HIP, UNI W/ Pelvis 2-3 Views IMPRESSION: Acute impacted fracture the subcapital femoral neck. Electronically Signed: Yayo Bingham MD at 16:51 EDT Tel , Service support ,
--- NOTE | 2020-07-22 16:03 | ED.VIS.GEN ---
History of Present Illness Chief Complaint: Fall Narrative: Patient presents after mechanical fall she fell and hit the left hip. She is unable to ambulate. No head injury no other injury. She denies loss of consciousness. She has no nausea or vomiting. Past Medical History - Allergies and Home Meds Allergies/Adverse Reactions: Allergies No Known Allergies Allergy (Verified 07/19/20 10:19) Primary Care Physician: Zachary Vargas Chi, MD [Primary Care Provider] - Past Medical History: - - Asthma, hypertension, hypercholesterolemia, CVA with left arm deficits. Smoking Status: Current every day smoker - Family History Maternal Family History: Family History (This Medical Record has been edited. Action required.) Mother Diabetes Cancer Family History: Reports: Unknown Paternal Family History: Family History (This Medical Record has been edited. Action required.) Mother Diabetes Cancer Family History: Reports: Unknown Review of Systems All systems negative except as indicated General: Denies: Fever Eyes: Denies: Visual changes - bilaterally Cardiovascular: Denies: Chest pain Respiratory: Denies: Dyspnea, Cough Gastrointestinal: Denies: Abdominal pain, Nausea Genitourinary: Denies: Dysuria Musculoskeletal: Reports: Extremity Pain Skin: Denies: Rash, Abscess Neurological: Reports: - - Left arm weakness which is chronic. Denies: Headache, Parasthesia Psych: Denies: Depression Endocrine: Denies: Polyuria, Polydipsia Hematologic: Denies: Easy bruising Physical Exam Vital Signs/Narrative: Vital Signs Temp Pulse Resp BP Pulse Ox 07/22/20 15:42 97.3 F L 88 18 117/94 H 93 07/22/20 15:38 97.3 F L 88 18 117/94 H 92 General: - - Patient appears chronically ill somewhat cachectic. Head: Normocephalic Eyes: Perrl ENT: Moist mucous membranes Cardiovascular: Regular rate, Regular rhythm Respiratory: No distress, - - Coarse bilateral breath sounds Abdomen: Soft, Nontender Back: Nontender. Negative for: Spinal tenderness Extremities: - - Tenderness to movement and rolling of the left hip region. Some tenderness in the pelvis. No knee or ankle pain. Otherwise she has contracture and weakness of her left upper extremity which is chronic but no trauma Skin: Normal color, No rash Neurological: - - Left upper extremity weakness otherwise no focal defect Diagnostic/Tx/Re-eval - Medical Decision Making Patient is found to have a left subcapital hip fracture. I will call orthopedics and I will admit her medically. ED Disposition - Plan for ED Patient: [facility]position: [facility] Diagnosis: Hip fracture Referrals: Zachary Vargas Chi, MD [Primary Care Provider] -
--- NOTE | 2020-07-22 16:15 | RAD_ITS ---
STUDY: X-RAY CHEST REASON FOR EXAM: Female, 60 years old. FALL TECHNIQUE: Single AP portable view of the chest. COMPARISON: 06/21/2015 FINDINGS: The lungs are clear and expanded. There is no demonstrated pleural abnormality. Normal size heart. Normal mediastinum and luc. Normal visualized pulmonary arteries. Normal visualized aortic arch and descending thoracic aorta. Normal visualized thoracic spine. Multiple healed bilateral rib fractures. There is no demonstrated abnormality of the visualized soft tissue structures of the upper abdomen. RAD/Chest 1 View (Portable) IMPRESSION: No active disease. Electronically Signed: Yayo Bingham MD at 16:48 EDT Tel , Service support ,
--- NOTE | 2020-07-22 16:35 | EKG12_ITS ---
Test Reason : FALL Blood Pressure : / mmHG Vent. Rate : 094 BPM Atrial Rate : 094 BPM P-R Int : 150 ms QRS Dur : 076 ms QT Int : 400 ms P-R-T Axes : 072 -29 070 degrees QTc Int : 500 ms Normal sinus rhythm Leftward axis Low voltage QRS Confirmed by PENNY BARAJAS, ANGELA ([id number]), food expeditor SHANNAN CHAVARRIA ([id number]) on 07/24/2020 11:06:40 AM Referred By: Zachary Vargas Confirmed By:ANGELA FRANCIS MD
--- NOTE | 2020-07-22 16:39 | PCM.HP.STD ---
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 The patient is a 60 year old F who presents emergency room due to mechanical fall with left hip pain. Patient states she was standing on the curb outside of her house waiting for ride to visit family when she lost her balance and fell. She reports hitting her left shoulder and could not ambulate due to left hip pain. Patient had recent fall 05/20/2020 down stairs at her home resulting in multiple left-sided rib fractures as well as thoracic spine compression fractures. She was transferred to [facility] at that time for trauma center evaluation. Patient states she was discharged to custodial facility for rehab and has been home for about 2 weeks. Patient states she has had other falls since she has been home however no other injuries. She denies recent illness. Denies cough, fever, chills. She has a past medical history of chronic COPD, tobacco dependence, hypothyroidism, history of CVA, chronic alcohol abuse, dysphagia with recent finding of distal esophageal mass. 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 (Chronic) Nicotine abuse (Chronic) Hyperlipidemia (Chronic) Medical History: Medical History (Last Updated 07/16/20 @ 13:15 by Jennifer Razo) Hemorrhagic cerebrovascular accident (CVA) (Chronic) Onset Date: ~07/07/15 I61.9 hemorrhagic infarction involving the right frontal?temporal, frontal?parietal, and perkins radiata Chronic infarction involving the right frontal and basal qanglia regions Nicotine abuse (Chronic) Z72.0 Hyperlipidemia (Chronic) E78.5 Arthritis M19.90 Asthma J45.909 Difficulty swallowing R13.10 GERD (gastroesophageal reflux disease) K21.9 History of back problems Anxiety and depression F41.9, F32.9 COPD (chronic obstructive pulmonary disease) J44.9 Hypothyroidism E03.9 Left hemiplegia G81.94 Osteoporosis M81.0 Polycythemia vera D45 Allergies No Known Allergies Allergy (Verified 07/19/20 10:19) Home Medications: Ambulatory Orders Medication Instructions Recorded Atorvastatin Calcium 40 mg PO DAILY 12/26/18 Aspirin [Aspirin EC] 81 mg PO DAILY 12/10/19 Doxepin HCl 100 mg PO QHS 12/10/19 Paroxetine [Paxil] 20 mg PO DAILY 12/10/19 Bupropion HCl [Bupropion HCl Sr] 150 mg PO BID 05/20/20 Ergocalciferol [Vitamin D] 50,000 units PO QMONTH 05/20/20 Melatonin 10 mg PO QHS 05/20/20 cyclobenzaprine 10 mg tablet 10 mg PO DAILY tab 07/16/20 Famotidine [Pepcid] 40 mg PO DAILY 07/22/20 Nicotine [Nicoderm Cq] 7 mg TP DAILY 07/22/20 Surgical History: Surgical History (Last Reviewed 07/16/20 @ 13:14 by Jennifer Razo) History of right knee surgery Z98.890 right ankle surgery Surgical History: - - History of PEG tube placement Psychiatric History: Anxiety, Depression 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 Action required.) Mother Diabetes Cancer History Items: Cancer, Diabetes Paternal Family History: Family History (This Medical Record has been edited. Action required.) Mother Diabetes Cancer History Items: - - Denies known paternal medical history including cardiac history. Review of Systems Constitutional: Denies: Chills, Fever, Weight Change HEENT: Denies: Head Aches, Sinus Congestion, Sinus Drainage Cardiovascular: Denies: Chest Pain, Palpitations Respiratory: Reports: Cough - Patient reports chronic due to smoking. Denies: Shortness of breath at rest, Sputum production Gastrointestinal: Denies: Abdominal Pain, Nausea, Vomiting Genitourinary: Denies: Dysuria Musculoskeletal: Reports: - - Left hip pain Skin: Denies: Rash, Wounds Neurological: Reports: Balance problems, - - Chronic dysarthria from CVA. Denies: Numbness, Tingling Psychiatric: Reports: Anxiety, Depression Hematologic/ Lymphatic: Denies: Easy Bruising, Easy Bleeding VTE Information - Inpt Only VTE Present on Admission: No VTE Mechan Device Prophylaxis: None VTE Pharm Prophylaxis ordered?: Yes Patient Problems: Active and Suspected Problems (Last Updated 07/16/20 @ 13:15 by Jennifer Razo) Hip fracture (Acute) - Physical Exam Vitals/I&O's: Vital Signs Temp Pulse Resp BP Pulse Ox 97.3 F L 88 18 102/64 93 07/22/20 15:42 07/22/20 15:42 07/22/20 15:42 07/22/20 16:11 07/22/20 15:42 Oxygen Delivery Method Room Air Weight: 120 lb 2.431 oz Body Mass Index (BMI) 23.4 Finger Stick Blood Glucose 99 General: Alert, Oriented x3, Cooperative, - - Appears much older than stated age HEENT: Atraumatic, PERRLA, EOMI, Normocephalic Oral: Dry Mucosa Neck: Supple, No JVD, Negative Carotid Bruits Lungs: Clear to auscultation, Diminished Cardiovascular: Regular rate, No murmurs Abdomen: Bowel Sounds Present, Soft, Non Tender, Non-Distended Extremities: No clubbing, No cyanosis, No edema Skin: No rashes, No breakdown, - - Left shoulder abrasion Musculoskeletal: Cachexia, Muscle Wasting, Tenderness - Left hip, - - 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 Neurological: Cranial nerves II-XII grossly intact, Neuro grossly intact, - - 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 Psych/Mental Status: Flat Affect Laboratory Results 07/22/20 16:10: WBC Pending, RBC Pending, Hgb Pending, Hct Pending, MCV Pending, MCH Pending, MCHC Pending, RDW Std Deviation Pending, RDW Coeff of Jeanine Pending, Plt Count Pending, Neut % (Auto) Pending, Absolute Neuts (auto) Pending 07/22/20 16:10: Sodium Pending, Potassium Pending, Chloride Pending, Carbon Dioxide Pending, Anion Gap Pending, BUN Pending, Creatinine Pending, Est GFR (MDRD) Af Amer Pending, Est GFR (MDRD) Non-Af Pending, BUN/Creatinine Ratio Pending, Glucose Pending, Calcium Pending, Total Bilirubin Pending, AST Pending, ALT Pending, Alkaline Phosphatase Pending, Troponin I Pending, Total Protein Pending, Albumin Pending 07/22/20 16:31: PT Pending, INR Pending Assessment/Plan All Active Problems (Last Updated 07/16/20 @ 13:15 by Jennifer Razo) Hip fracture (Acute) 1. Acute traumatic right hip fracture secondary to mechanical fall prior to admission-orthopedic consult. PRN pain regimen. PT/OT. Anticipate placement at discharge. NSQIP surgical risk calculator completed and shows below average risk of , 0.1% and above average risk for serious complication with 5% risk, average risk 3.5%. See paper copy placed in chart. Obtain preoperative EKG. 2. Chronic dysphagia with recent finding of possible distal esophageal mass-scheduled for EGD with biopsy 07/25/2020. Speech therapy consult. N.p.o. pending bedside swallow eval. Will discuss with general surgery possibly completing biopsy during admission. 3. History of CVA-Per records, secondary to severe right ICA stenosis. Unclear if carotid was ever addressed. Chronic left arm contractures and left-sided weakness as well as dysarthria and dysphagia. Aspirin, statin. 4. Tobacco dependence-1 pack/day smoker. Encouraged cessation. Patient reports she previously quit smoking however has restarted since her significant other recently. Nicotine replacement patch. 5. Chronic COPD-as needed albuterol aerosol. 6. Hypothyroidism-not on regimen, check TSH. 7. Chronic alcohol abuse-patient reports 1 beer earlier today. Denies recent heavy alcohol use. Thiamine, folic acid, multivitamin supplementation. CIWA. 8. Marijuana use-obtain tox screen. 9. Depression/anxiety-continue bupropion, doxepin, paroxetine. 10. History of vitamin D deficiency-previously on 50,000 units monthly, this was held on admission due to recent vitamin D level and May 2020 greater than 100 which is toxic level. Recommend repeat level in 4 to 6 weeks as outpatient DVT prophylaxis- SCDs, lovenox sc This patient was seen by JOSE Faust under the supervision of Dr. Hayes. Sherlyn Coyle - Last Filed: 07/22/20 19:17> History of Present Illness Date of Admission: 07/22/20 I agree with the above and the following is a reflection of my independent history and PE. Pt states that she tripped while walking and had immediate L hip pain. Has a h/o stroke (R MCA) with residual L sided hemiparesis but she usually does not use an assistive device. I am unclear if this follows recommendation per PT or if this is just what she prefers. She had a recent fall down stairs at her home which resulted in multiple fx and a SNF admission for rehab. She acutually was just released about 2 weeks ago. She also has had issues with dysphagia and is being worked up for this and was to have and EGD this week with Dr. Willard for distal esophageal thickening. Pt admits to have started smoking and is still drinking intermittently with her last drink being 1 beer yesterday. She states that she no longer drinks heavy or regularly. Past Medical History Medical History: Medical History (Last Reviewed 07/22/20 @ 19:[address] Sherlyn Hayes, DO) Nicotine abuse (Chronic) Z72.0 Hyperlipidemia (Chronic) E78.5 Arthritis M19.90 Asthma J45.909 Difficulty swallowing R13.10 GERD (gastroesophageal reflux disease) K21.9 History of back problems Anxiety and depression F41.9, F32.9 COPD (chronic obstructive pulmonary disease) J44.9 Hypothyroidism E03.9 Left hemiplegia G81.94 Osteoporosis M81.0 Polycythemia vera D45 Allergies No Known Allergies Allergy (Verified 07/19/20 10:19) Surgical History: Surgical History (Last Reviewed 07/22/20 @ 19:[address] Sherlyn Hayes DO) History of right knee surgery Z98.890 right ankle surgery - *Family History Maternal Family History: Family History (This Medical Record has been edited. Action required.) Mother Diabetes Cancer Paternal Family History: Family History (This Medical Record has been edited. Action required.) Mother Diabetes Cancer Review of Systems Constitutional: Reports: Anorexia, Weakness. Denies: Night Sweats, Malaise, Weight Change, Fatigue Eyes: Denies: Blurred vision, Conjunctivae Inflammation, Double vision, Drainage, Pain, Redness HEENT: Reports: Difficulty Swallowing. Denies: Difficulty Hearing, Ear Pain, Head Aches, Nasal bleeding, Nasal Congestion, Sinus Congestion, Sinus Drainage, Sore Throat, Visual Changes Cardiovascular: Denies: Chest Pain, Claudication, Chest Pressure, Chest Tightness, Edema, Heaviness, Light Headedness, Orthopnea, Palpitations, Paroxysmal Noc. Dyspnea, Syncope Respiratory: Reports: Cough. Denies: Hemoptysis, Pleuritic Pain, Shortness of Breath, Shortness of breath at rest, Shortness of breath upon exertion, Sputum production, Wheezing Gastrointestinal: Denies: Abdominal Pain, Constipation, Diarrhea, Dyspepsia, Hematemesis, Hematochezia, Nausea, Melena, Vomiting Genitourinary: Denies: Dysuria, Frequency, Hematuria, Hesitancy, Incontinence, Nocturia, Retention, Urgency Gynecological: Denies: Breast symptoms Musculoskeletal: Reports: Joint Pain, Joint Tenderness, Leg Pain Skin: Denies: Dryness, Jaundice, Lesions, Pruritis, Rash, Skin Changes, Wounds Neurological: Reports: Balance problems, Slurred speech - chronic, Focal weakness - L UE weakness and contracture, Incoordination, - - Chronic dysarthria from CVA. Denies: Change in Speech, Confusion, Difficulty swallowing Psychiatric: Reports: Anxiety, Depression Endocrine: Denies: Change in Body Habitus, Heat/ Cold Intolerance, Polydipsia, Polyuria Hematologic/ Lymphatic: Denies: Adenopathy, Anemia, Easy Bruising, Easy Bleeding, Petechiae, Purpura VTE Information - Inpt Only VTE Present on Admission: No VTE Mechan Device Prophylaxis: None VTE Pharm Prophylaxis ordered?: Yes - Physical Exam Vitals/I&O's: Vital Signs Temp Pulse Resp BP Pulse Ox 97.6 F L 102 H 20 H 108/89 H 96 07/22/20 18:23 07/22/20 18:23 07/22/20 18:23 07/22/20 18:23 07/22/20 18:24 Oxygen Flow Rate (L/min) 2 Oxygen Delivery Method Nasal Cannula Weight: 50.8 kg Body Mass Index (BMI) 21.1 Finger Stick Blood Glucose 99 General: Alert, Oriented x3, Cooperative, No apparent distress, Well developed HEENT: Atraumatic, PERRLA, EOMI, Normocephalic, EAC Clear Oral: Dry Mucosa, - - dentures in place Neck: Supple, No JVD, Negative Carotid Bruits, Negative Hepatojugular Reflux, No Nodes, No Nuchal Rigidity, Trachea Midline, Thyroid Normal Size and Texture Lungs: Clear to auscultation, No rhonchi, No wheeze, No rales, Diminished - diffusely, - - comfortable breathing on RA Cardiovascular: Regular Rhythm, Normal S1, Normal S2, No murmurs, No Ectopic Activity, No rub noted, No Gallop Abdomen: Bowel Sounds Present, Soft, Non Tender, Non-Distended, No Hepato-splenomegaly, No hernias noted Extremities: No clubbing, No cyanosis, No edema, Capillary Refill Less than 3 Seconds, Peripheral Pulses Normal Skin: No rashes, No breakdown Musculoskeletal: Arthritic Changes, Cachexia, Muscle Wasting, Tenderness, - - 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, L hip is flexed, slightly ER and pt is unwilling to move her leg Lymphatic: No Cervical, Supraclavicular, or Inguinal Adenopathy Neurological: - - 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, L sided weakness UE, unable to examine LE 2/2 pain from fx Psych/Mental Status: Appropriate, Flat Affect Laboratory Results 07/22/20 16:10: WBC 11.4 H, RBC 4.62, Hgb 13.4, Hct 43.0, MCV 93.1, MCH 29.0, MCHC 31.2 L, RDW Std Deviation 60.6 H, RDW Coeff of Jeanine 17.9 H, Plt Count 388, MPV 9.7, Immature Gran % (Auto) 0.500, Neut % (Auto) 68.5, Lymph % (Auto) 22.7, [place] % (Auto) 7.4, Eos % (Auto) 0.5, Baso % (Auto) 0.4, Absolute Neuts (auto) 7.8 H, Absolute Lymphs (auto) 2.58, Nucleated RBC % 0 07/22/20 16:10: Sodium 141, Potassium 3.5, Chloride 110 H, Carbon Dioxide 25.0, Anion Gap 6, BUN 5 L, Creatinine 0.68, Estim Creat Clear Calc 63.98, Est GFR (MDRD) Af Amer 114, Est GFR (MDRD) Non-Af 94, BUN/Creatinine Ratio 7.4 L, Glucose 94, Calcium 8.7, Total Bilirubin 0.50, AST 19, ALT 19, Alkaline Phosphatase 191 H, Troponin I < 0.015, Total Protein 7.2, Albumin 3.0 L, Globulin 4.2, Albumin/Globulin Ratio 0.7 L 07/22/20 16:10: Magnesium 2.1, TSH 5.13 H 07/22/20 16:31: PT 12.3, INR 1.0 Current Medications Acetaminophen (Tylenol) 650 mg PO Q6H PRN PRN PRN Reason: Pain Score 1-10/Temp > 100.7 F Albuterol Sulfate (Ventolin Aerosols) 2.5 mg INHALATION Q2H PRN PRN PRN Reason: Shortness of Breath/Wheezing Atorvastatin Calcium (Lipitor) 40 mg PO QHS [facility] Bupropion HCl (Wellbutrin Sr (150mg Tablets)) 150 mg PO BID [facility] Doxepin HCl (Doxepin Hcl) 100 mg PO QHS [facility] Enoxaparin Sodium (Lovenox) 40 mg SC DAILY [facility] Famotidine (Pepcid) 40 mg PO DAILY [facility] Folic Acid (Folic Acid) 1 mg PO DAILY@0800 [facility] Sodium Chloride () 1,000 mls @ 100 mls/hr IV .Q10H [facility] Last Admin: 07/22/20 18:13 Dose: 100 mls/hr Documented by: Morphine Sulfate () 2 mg IV Q3H PRN PRN PRN Reason: Pain Score 6-10/10 Last Admin: 07/22/20 18:34 Dose: 2 mg Documented by: Nicotine (Nicoderm Cq (Pbkc)) 14 mg TRANSDERM. DAILY [facility] Ondansetron HCl (Zofran) 4 mg IV Q8H PRN PRN PRN Reason: NAUSEA/VOMITING Oxycodone HCl (Oxyir) 5 mg PO Q4H PRN PRN PRN Reason: Pain Score 4-5/10 Paroxetine HCl (Paxil) 20 mg PO DAILY [facility] Sodium Chloride () 10 - 40 ml IV UD PRN PRN Reason: SALINE FLUSH Last Admin: 07/22/20 18:34 Dose: 10 ml Documented by: Thi[facility] ([facility]amin [facility]) [facility] Assessment/Plan I agree with the above and the following is a reflection of my independent history and PE. ASSESSMENT Acute L Subcapital fx of the Hip Esophageal thickening with potential mass Mild Leukocytosis H/O Ischemic R MCA stroke H/O vit D deficiency COPD-stable HPL GERD Hypothyroidism Depression/ Anxiety Insomnia Recent Loss of long time boyfriend 2/2 cancer Tobacco Abuse H/O EtOH abuse THC use PLAN -admit to medical -EKG for pre-op clearance -[facility] surgical risk calculator completed and shows below average risk of , 0.1% and above average risk for serious complication with 5% risk, average risk 3.5% -stop vit D supplementation with last level 05/2020 > 100 and do not restart at d/c -PT/OT -pain mgt -bowel regimen -[employer] CONSULTANT to see after OR -consult to Dr. Willard with EGD planned for this week and suspect d/c to rehab vs SNF and COVID-19 -nicotine patch -continue home meds for depression -Thiamine and Folate Inpatient E&M: 91227 Init Hosp L3
[2020-07-22 16:42] LABS: ALB/GLOB Ratio 0.7 RATIO (0.9-2.4); AST(SGOT) 19 U/L (15-37); Alanine Aminotransfer ALT/SGPT 19 U/L (13-56); Alkaline Phosphatase 191 U/L (45-117); Anion Gap 6 (5-15); BUN 5 mg/dL (7-18); BUN/Creat Ratio 7.4 RATIO (10-20); Calcium,Total 8.7 mg/dL (8.5-10.1); Chloride 110 mmol/L (98-107); Creatinine, Serum 0.68 mg/dL (0.55-1.02); EST Glomerular Filtration Rate 94 mL/min (>60); Est Glom Filt Rate - Afr Amer 114 mL/min (>60); Estimated Creatinine Clearance 63.98 ml/min; Globulin 4.2 g/dL (2.2-4.2); Glucose 94 mg/dL (74-106); Potassium 3.5 mmol/L (3.5-5.1); Protein, Total 7.2 g/dL (6.4-8.2); Sodium Level 141 mmol/L (136-145)
[2020-07-22 16:48] LABS: Absolute Lymphocyte Count 2.58 X10^3/uL (0.83-4.51); Absolute Neutrophil Count 7.8 X10^3/uL (2.0-7.7); Basophil# 0.05 X10^3/uL; Basophil% 0.4 % (0-1); Eosinophil# 0.06 X10^3/uL; Eosinophils% 0.5 % (0-5); Hemoglobin 13.4 g/dL (12.0-15.0); Lymphocyte # 2.58 X10^3/ul (4.0); Lymphocyte % 22.7 % (19-41); Mean Corp Hgb Conc 31.2 g/dL (32-36); Mean Corpuscular Volume 93.1 fL (81-99); Mean Platelet Vol. 9.7 fl (6.2-12.0); Monocyte# 0.84 X10^3/uL; Monocyte% 7.4 % (0-10); NRBC Flagged by Analyzer 0 % (0-5); Neutrophil # 7.78 X10^3/uL (2.7-7.7); Neutrophil % 68.5 % (47-70); Platelet Count 388 K/mm3 (150-450); RBC Distribution Width CV 17.9 % (11.6-14.6); RBC Distribution Width SD 60.6 fl (35.1-43.9); Red Blood Count 4.62 M/mm3 (4.2-5.4); White Blood Count 11.4 K/mm3 (4.4-11.0)
[2020-07-22] MEDS: Morphine 2 MG/ML Syringe IV ×3 (16:49→21:56)
[2020-07-22] MEDS: Ondansetron 4 MG/2 ML Vial IV ×2 (16:49→23:33)
[2020-07-22 16:57] LABS: Prothrombin Time (Protime)PT. 12.3 SECONDS (11.7-14.9)
--- NOTE | 2020-07-22 17:42 | ED.RN ---
antonio west rn obtained admission vitals. handed to admission nurse to chart. rn unable to find in chart. patient at this time out of the er and on the floor.
[2020-07-22] MEDS: 0.9% Normal Saline 1,000 ML 100 ML IV (18:13)
[2020-07-22] MEDS: 0.9% Saline Lock 10 ML Syringe IV (18:34)
[2020-07-22 18:44] LABS: Magnesium 2.1 mg/dL (1.6-2.6); Thyroid Stim Hormone (TSH) 5.13 uIU/mL (0.358-3.74)
[2020-07-22 19:33] LABS: Alcohol, Blood (Medical)-Serum < 3.0 mg/dL
[2020-07-22 21:14] LABS: Amphetamine Urine VISTA NEGATIVE (<1000 ng/mL); Barbiturate Urine VISTA NEGATIVE (< 200 ng/mL); Benzodiazepine Urine VISTA NEGATIVE (< 200 ng/mL); Cocaine Urine VISTA NEGATIVE (< 300 ng/mL); Ecstacy Urine VISTA POSITIVE (< 500 ng/mL); Methadone Urine VISTA NEGATIVE (< 300 ng/mL); PCP Urine VISTA NEGATIVE (< 25 ng/mL); THC Urine VISTA POSITIVE (< 50 ng/mL); Vista UDS pH Range 5
[2020-07-23] VITALS (17 sets, daily range): BP systolic 93–124; BP diastolic 59–81; PULSE 95–115; RESP 16–20; TEMP 36.1–37.6; O2SAT 93–98; BMI 21.1
[2020-07-23] MEDS: Morphine 2 MG/ML Syringe IV ×3 (01:02→07:24)
[2020-07-23] MEDS: 0.9% Normal Saline 1,000 ML 100 ML IV ×2 (04:08→14:09)
[2020-07-23 05:38] LABS: Hematocrit 40.3 % (37-47); Hemoglobin 12.5 g/dL (12.0-15.0); Mean Corpuscular Hgb 29.4 pg (27.0-32.0); Mean Corpuscular Volume 94.8 fL (81-99); Mean Platelet Vol. 9.3 fl (6.2-12.0); Platelet Count 356 K/mm3 (150-450); RBC Distribution Width CV 17.7 % (11.6-14.6); RBC Distribution Width SD 61.4 fl (35.1-43.9); Red Blood Count 4.25 M/mm3 (4.2-5.4); White Blood Count 12.4 K/mm3 (4.4-11.0)
[2020-07-23 05:58] LABS: Anion Gap 3 (5-15); BUN 6 mg/dL (7-18); BUN/Creat Ratio 10.2 RATIO (10-20); Calcium,Total 8.1 mg/dL (8.5-10.1); Chloride 111 mmol/L (98-107); Creatinine, Serum 0.59 mg/dL (0.55-1.02); EST Glomerular Filtration Rate 111 mL/min (>60); Est Glom Filt Rate - Afr Amer 134 mL/min (>60); Estimated Creatinine Clearance 77.47 ml/min; Glucose 98 mg/dL (74-106); Potassium 3.8 mmol/L (3.5-5.1); Sodium Level 139 mmol/L (136-145); T4 Free Direct 1.13 ng/dL (0.76-1.46)
[2020-07-23] MEDS: oxyCODONE 5 MG Tablet PO ×2 (06:04→10:54)
[2020-07-23 06:06] LABS: Partial Thromboplast Time 26.8 Seconds (24.1-36.2)
--- NOTE | 2020-07-23 08:52 | PCM.PN.SRG ---
Patient Problems: Active and Suspected Problems (Last Reviewed 07/22/20 @ 19:[address] Sherlyn Hayes, DO) Hip fracture (Acute) Subjective: Patient has only complaining of hip pain. No issues overnight - Physical Exam Vitals/I&O's: Vital Signs Temp Pulse Resp BP Pulse Ox 97.8 F 98 20 H 124/71 H 95 07/23/20 04:13 07/23/20 06:00 07/23/20 04:13 07/23/20 04:13 07/23/20 04:13 Oxygen Flow Rate (L/min) 2.5 Oxygen Delivery Method Nasal Cannula Weight: 111 lb 15.917 oz Body Mass Index (BMI) 21.1 Finger Stick Blood Glucose 99 Intake and Output for Last 24 Hours 07/21/20 07/22/20 07/23/20 23:59 23:59 23:59 Intake Total 991.67 / 991.67 Output Total 200 / 200 200 / 200 Balance -200 / -200 791.67 / 791.67 General: Alert, Oriented x3 Lungs: Normal air movement Cardiovascular: Regular rate, Regular Rhythm Abdomen: Soft, Non Tender, Non-Distended Laboratory Results 07/22/20 16:10: WBC 11.4 H, RBC 4.62, Hgb 13.4, Hct 43.0, MCV 93.1, MCH 29.0, MCHC 31.2 L, RDW Std Deviation 60.6 H, RDW Coeff of Jeanine 17.9 H, Plt Count 388, MPV 9.7, Immature Gran % (Auto) 0.500, Neut % (Auto) 68.5, Lymph % (Auto) 22.7, [place] % (Auto) 7.4, Eos % (Auto) 0.5, Baso % (Auto) 0.4, Absolute Neuts (auto) 7.8 H, Absolute Lymphs (auto) 2.58, Nucleated RBC % 0 07/22/20 16:10: Sodium 141, Potassium 3.5, Chloride 110 H, Carbon Dioxide 25.0, Anion Gap 6, BUN 5 L, Creatinine 0.68, Estim Creat Clear Calc 63.98, Est GFR (MDRD) Af Amer 114, Est GFR (MDRD) Non-Af 94, BUN/Creatinine Ratio 7.4 L, Glucose 94, Calcium 8.7, Total Bilirubin 0.50, AST 19, ALT 19, Alkaline Phosphatase 191 H, Troponin I < 0.015, Total Protein 7.2, Albumin 3.0 L, Globulin 4.2, Albumin/Globulin Ratio 0.7 L 07/22/20 16:10: Magnesium 2.1, TSH 5.13 H 07/22/20 16:31: PT 12.3, INR 1.0 07/22/20 18:46: Ethyl Alcohol < 3.0 07/22/20 20:25: Urine Opiates Screen POSITIVE H, Urine Methadone Screen NEGATIVE, Ur Barbiturates Screen NEGATIVE, Ur Phencyclidine Scrn NEGATIVE, Ur Amphetamines Screen NEGATIVE, U Methamphetamin-MDMA POSITIVE H, U Benzodiazepines Scrn NEGATIVE, Urine Cocaine Screen NEGATIVE, U Cannabinoids Screen POSITIVE H, Ur Drug Screen Comment 07/23/20 05:24: WBC 12.4 H, RBC 4.25, Hgb 12.5, Hct 40.3, MCV 94.8, MCH 29.4, MCHC 31.0 L, RDW Std Deviation 61.4 H, RDW Coeff of Jeanine 17.7 H, Plt Count 356, MPV 9.3 07/23/20 05:24: PT 13.0, INR 1.0, APTT 26.8 07/23/20 05:24: Sodium 139, Potassium 3.8, Chloride 111 H, Carbon Dioxide 25.0, Anion Gap 3 L, BUN 6 L, Creatinine 0.59, Estim Creat Clear Calc 77.47, Est GFR (MDRD) Af Amer 134, Est GFR (MDRD) Non-Af 111, BUN/Creatinine Ratio 10.2, Glucose 98, Calcium 8.1 L, Free T4 1.13 07/23/20 05:24: Blood Type O POSITIVE, Antibody Screen NEGATIVE Current Medications Acetaminophen (Tylenol) 650 mg PO Q6H PRN PRN PRN Reason: Pain Score 1-10/Temp > 100.7 F Albuterol Sulfate (Ventolin Aerosols) 2.5 mg INHALATION Q2H PRN PRN PRN Reason: Shortness of Breath/Wheezing Atorvastatin Calcium (Lipitor) 40 mg PO QHS [facility] Last Admin: 07/22/20 20:46 Dose: Not Given Documented by: Bupropion HCl (Wellbutrin Sr (150mg Tablets)) 150 mg PO BID [facility] Last Admin: 07/22/20 20:46 Dose: Not Given Documented by: Doxepin HCl (Doxepin Hcl) 100 mg PO QHS [facility] Last Admin: 07/22/20 20:47 Dose: Not Given Documented by: Enoxaparin Sodium (Lovenox) 40 mg SC DAILY [facility] Famotidine (Pepcid) 40 mg PO DAILY [facility] Folic Acid (Folic Acid) 1 mg PO DAILY@0800 [facility] Sodium Chloride () 1,000 mls @ 100 mls/hr IV .Q10H [facility] Last Admin: 07/23/20 04:08 Dose: 100 mls/hr Documented by: Morphine Sulfate () 2 mg IV Q3H PRN PRN PRN Reason: Pain Score 6-10/10 Last Admin: 07/23/20 07:24 Dose: 2 mg Documented by: Nicotine (Nicoderm Cq (Pbkc)) 14 mg TRANSDERM. DAILY [facility] Nutritional Formula (Lactose Free) (Ensure Enlive) 120 ml PO 4X/DAY [facility] Last Admin: 07/22/20 20:45 Dose: Not Given Documented by: Ondansetron HCl (Zofran) 4 mg IV Q8H PRN PRN PRN Reason: NAUSEA/VOMITING Last Admin: 07/22/20 23:33 Dose: 4 mg Documented by: Oxycodone HCl (Oxyir) 5 mg PO Q4H PRN PRN PRN Reason: Pain Score 4-5/10 Last Admin: 07/23/20 06:04 Dose: 5 mg Documented by: Paroxetine HCl (Paxil) 20 mg PO DAILY [facility] Polyethylene Glycol (Miralax) 17 gm PO DAILY [facility] Sodium Chloride () 10 - 40 ml IV UD PRN PRN Reason: SALINE FLUSH Last Admin: 07/22/20 18:34 Dose: 10 ml Documented by: Thiamine [facility] ([facility]itamin B1) [facility] Necessity - Tobacco Use Smoking Status: Current every day smoker Tobacco Use: Cigarettes Assessment/Plan All Active Problems (Last Reviewed 07/22/20 @ 19:[address] Sherlyn Hayes DO) Hip fracture (Acute) 60-year-old female with dysphasia and hip fracture 1. Patient is here for acute hip fracture and is having surgery today. 2. Patient had planned EGD on for dysphagia. The patient had sticking of her iodine pill in her esophagus and there is concern for malignancy. I would recommend not advancing beyond full liquids during this hospitalization. I will make her n.p.o. after midnight on Wednesday and plan on performing her EGD morning as scheduled. Cornelius Willard MD Pager: [facility] [address] [place] [address], [address] [place] [address] Office:
--- NOTE | 2020-07-23 11:29 | CASEMGMT ---
Social Work Assessment Referral Date: 07/23/2020 Date of Assessment: 07/23/2020 Reason for consult: Hip Fracture, Possibly [facility] Informant: SW/JOCY Personal Status: SW updated that pt is wanting [facility] at discharge as pt has been there before for a stroke. SW in to speak with pt. SW introduced self and role at [facility] [place]. Pt is alert and orientated x3. Pt states that she lives alone in a trailer. Pt states that she has three steps to enter. Pt states that she was previously independent with [facility], states she doesn't drive and she walks everywhere. Pt states that she doesn't wear oxygen at home and pt has cane, walker, and crutches at home. Pt states PCP is Dr. Vargas and Pharmacy is either [facility] or gets prescriptions mail delivered. Pt states that her boyfriend of 26 years had cancer and he recently (In May). SW offered support to pt. Substance Abuse Hx: Pt states that she currently smokes cigarettes, about a pack a day, but pt has been trying to quit. Pt states she has tried the patch and gum. Pt states that she also occasionally smokes marijuana. 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 Mental Health Hx: Pt states she has depression, states she is currently on medications that are prescribed through her PCP. Pt denied any history of suicidal thoughts/plans/ideations. [facility]: Pt denied SNF: Pt states that she was recently at [facility]. Pt confirms that she was at in the past for a stroke. SW spoke with pt regarding discharge plans. Pt agreeable to [facility]. SW explained referral process and that pt will need pre-cert. Pt states understanding. Pt updated on acceptance to pending pre-cert. MOOSE spoke with Anali in [facility]. RU able to accept pt pending pre-cert. Plan: RU pending pre-cert. Pt is having surgery today. Faustina Romero SALON/SPA MANAGER, [employer]
--- NOTE | 2020-07-23 13:28 | PCM.PROGNOTE ---
<Racquel Guajardo MEDICAL CHARGE ENTRY SPECIALIST - Last Filed: 07/23/20 13:34> Patient Problems: Active and Suspected Problems (Last Reviewed 07/22/20 @ 19:[address] Sherlyn Hayes DO) Hip fracture (Acute) Subjective: Patient seen and examined. Continues have significant left hip pain. To undergo surgery later today. Requesting to go to rehab at discharge as she was there with her previous CVA. Patient denies other symptoms or complaints. - Physical Exam Vitals/I&O's: Vital Signs Temp Pulse Resp BP Pulse Ox 98.2 F 101 H 18 105/80 98 07/23/20 10:00 07/23/20 10:00 07/23/20 10:00 07/23/20 10:00 07/23/20 10:00 Oxygen Flow Rate (L/min) 1 Oxygen Delivery Method Nasal Cannula Weight: 111 lb 15.917 oz Body Mass Index (BMI) 21.1 Finger Stick Blood Glucose 99 Intake and Output for Last 24 Hours 07/21/20 07/22/20 07/23/20 23:59 23:59 23:59 Intake Total 1041.67 / 1041.67 Output Total 200 / 200 500 / 500 Balance -200 / -200 541.67 / 541.67 General: Alert, Oriented x3, Cooperative, - - Appears older than stated age HEENT: Atraumatic, PERRLA, EOMI, Normocephalic Oral: Dry Mucosa Neck: Supple, No JVD, Negative Carotid Bruits Lungs: Clear to auscultation, Diminished Cardiovascular: Regular rate, No murmurs Abdomen: Bowel Sounds Present, Soft, Non Tender, Non-Distended Extremities: No clubbing, No cyanosis, No edema Skin: No rashes, No breakdown, - - Left shoulder abrasion Musculoskeletal: No Tenderness to Palpation of Joints or Extremities, Cachexia, Muscle Wasting, Tenderness - Left hip, left shoulder, - - 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 Neurological: Cranial nerves II-XII grossly intact, Neuro grossly intact, - - 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 Psych/Mental Status: Flat Affect Laboratory Results 07/22/20 16:10: WBC 11.4 H, RBC 4.62, Hgb 13.4, Hct 43.0, MCV 93.1, MCH 29.0, MCHC 31.2 L, RDW Std Deviation 60.6 H, RDW Coeff of Jeanine 17.9 H, Plt Count 388, MPV 9.7, Immature Gran % (Auto) 0.500, Neut % (Auto) 68.5, Lymph % (Auto) 22.7, [place] % (Auto) 7.4, Eos % (Auto) 0.5, Baso % (Auto) 0.4, Absolute Neuts (auto) 7.8 H, Absolute Lymphs (auto) 2.58, Nucleated RBC % 0 07/22/20 16:10: Sodium 141, Potassium 3.5, Chloride 110 H, Carbon Dioxide 25.0, Anion Gap 6, BUN 5 L, Creatinine 0.68, Estim Creat Clear Calc 63.98, Est GFR (MDRD) Af Amer 114, Est GFR (MDRD) Non-Af 94, BUN/Creatinine Ratio 7.4 L, Glucose 94, Calcium 8.7, Total Bilirubin 0.50, AST 19, ALT 19, Alkaline Phosphatase 191 H, Troponin I < 0.015, Total Protein 7.2, Albumin 3.0 L, Globulin 4.2, Albumin/Globulin Ratio 0.7 L 07/22/20 16:10: Magnesium 2.1, TSH 5.13 H 07/22/20 16:31: PT 12.3, INR 1.0 07/22/20 18:46: Ethyl Alcohol < 3.0 07/22/20 20:25: Urine Opiates Screen POSITIVE H, Urine Methadone Screen NEGATIVE, Ur Barbiturates Screen NEGATIVE, Ur Phencyclidine Scrn NEGATIVE, Ur Amphetamines Screen NEGATIVE, U Methamphetamin-MDMA POSITIVE H, U Benzodiazepines Scrn NEGATIVE, Urine Cocaine Screen NEGATIVE, U Cannabinoids Screen POSITIVE H, Ur Drug Screen Comment 07/23/20 05:24: WBC 12.4 H, RBC 4.25, Hgb 12.5, Hct 40.3, MCV 94.8, MCH 29.4, MCHC 31.0 L, RDW Std Deviation 61.4 H, RDW Coeff of Jeanine 17.7 H, Plt Count 356, MPV 9.3 07/23/20 05:24: PT 13.0, INR 1.0, APTT 26.8 07/23/20 05:24: Sodium 139, Potassium 3.8, Chloride 111 H, Carbon Dioxide 25.0, Anion Gap 3 L, BUN 6 L, Creatinine 0.59, Estim Creat Clear Calc 77.47, Est GFR (MDRD) Af Amer 134, Est GFR (MDRD) Non-Af 111, BUN/Creatinine Ratio 10.2, Glucose 98, Calcium 8.1 L, Free T4 1.13 07/23/20 05:24: Blood Type O POSITIVE, Antibody Screen NEGATIVE Current Medications Acetaminophen (Tylenol) 650 mg PO Q6H PRN PRN PRN Reason: Pain Score 1-10/Temp > 100.7 F Albuterol Sulfate (Ventolin Aerosols) 2.5 mg INHALATION Q2H PRN PRN PRN Reason: Shortness of Breath/Wheezing Atorvastatin Calcium (Lipitor) 40 mg PO QHS [facility] Last Admin: 07/22/20 20:46 Dose: Not Given Documented by: Bupropion HCl (Wellbutrin Sr (150mg Tablets)) 150 mg PO BID [facility] Last Admin: 07/23/20 09:14 Dose: Not Given Documented by: Doxepin HCl (Doxepin Hcl) 100 mg PO QHS [facility] Last Admin: 07/22/20 20:47 Dose: Not Given Documented by: Enoxaparin Sodium (Lovenox) 40 mg SC DAILY [facility] Last Admin: 07/23/20 09:15 Dose: Not Given Documented by: Famotidine (Pepcid) 40 mg PO DAILY [facility] Last Admin: 07/23/20 09:12 Dose: Not Given Documented by: Folic Acid (Folic Acid) 1 mg PO DAILY@0800 [facility] Last Admin: 07/23/20 09:10 Dose: Not Given Documented by: Sodium Chloride () 1,000 mls @ 100 mls/hr IV .Q10H [facility] Last Admin: 07/23/20 04:08 Dose: 100 mls/hr Documented by: Morphine Sulfate () 2 mg IV Q3H PRN PRN PRN Reason: Pain Score 6-10/10 Last Admin: 07/23/20 07:24 Dose: 2 mg Documented by: Nicotine (Nicoderm Cq (Pbkc)) 14 mg TRANSDERM. DAILY [facility] Last Admin: 07/23/20 11:32 Dose: Not Given Documented by: Nutritional Formula (Lactose Free) (Ensure Enlive) 120 ml PO 4X/DAY [facility] Last Admin: 07/23/20 09:12 Dose: Not Given Documented by: Ondansetron HCl (Zofran) 4 mg IV Q8H PRN PRN PRN Reason: NAUSEA/VOMITING Last Admin: 07/22/20 23:33 Dose: 4 mg Documented by: Oxycodone HCl (Oxyir) 5 mg PO Q4H PRN PRN PRN Reason: Pain Score 4-5/10 Last Admin: 07/23/20 10:54 Dose: 5 mg Documented by: Paroxetine HCl (Paxil) 20 mg PO DAILY [facility] Last Admin: 07/23/20 09:12 Dose: Not Given Documented by: Polyethylene Glycol (Miralax) 17 gm PO DAILY [facility] Last Admin: 07/23/20 09:14 Dose: Not Given Documented by: Sodium Chloride () 10 - 40 ml IV UD PRN PRN Reason: SALINE FLUSH Last Admin: 07/22/20 18:34 Dose: 10 ml Documented by: Thiamine HCl (Vitamin B1) 100 mg PO DAILYCM [facility] Last Admin: 07/23/20 09:10 Dose: Not Given Documented by: Medical Necessity - Tobacco Use Smoking Status: Current every day smoker Tobacco Use: Cigarettes Assessment/Plan All Active Problems (Last Reviewed 07/22/20 @ 19:[address] Sherlyn Hayes, DO) Hip fracture (Acute) 1. Acute traumatic right hip fracture secondary to mechanical fall prior to admission-orthopedic consult. PRN pain regimen. PT/OT. Anticipate placement at discharge/rehab. NSQIP surgical risk calculator completed and shows below average risk of , 0.1% and above average risk for serious complication with 5% risk, average risk 3.5%. See paper copy placed in chart. EKG without acute changes. Okay to proceed with surgery per orthopedic medicine. 2. Chronic dysphagia with recent finding of possible distal esophageal mass-scheduled for EGD with biopsy 07/25/2020. Speech therapy consult. N.p.o. For surgery and then will need clearance by speech therapy. General surgery consulted with plans for EGD with biopsy 07/25. 3. History of CVA-Per records, secondary to severe right ICA stenosis. Unclear if carotid was ever addressed. Chronic left arm contractures and left-sided weakness as well as dysarthria and dysphagia. Aspirin, statin. 4. Tobacco dependence-1 pack/day smoker. Encouraged cessation. Patient reports she previously quit smoking however has restarted since her significant other recently. Nicotine replacement patch. 5. Chronic COPD-as needed albuterol aerosol. 6. Hypothyroidism-not on regimen. TSH 5.13. Free T4 1.13. 7. Chronic alcohol abuse-Denies recent heavy alcohol use. Thiamine, folic acid, multivitamin supplementation. CIWA. Alcohol level negative on admission. 8. Marijuana use-tox screen positive for cannabinoids, methamphetamine. 9. Depression/anxiety-continue bupropion, doxepin, paroxetine. 10. History of vitamin D deficiency-previously on 50,000 units monthly, this was held on admission due to recent vitamin D level and May 2020 greater than 100 which is toxic level. Recommend repeat level in 4 to 6 weeks as outpatient DVT prophylaxis- SCDkanika, nicolax huey This patient was seen by JOSE Faust under the supervision of Dr. Faust. <Charles Faust - Last Filed: 07/23/20 14:06> - Physical Exam Vitals/I&O's: Vital Signs Temp Pulse Resp BP Pulse Ox 36.8 C 101 H 18 105/80 98 07/23/20 10:00 07/23/20 10:00 07/23/20 10:00 07/23/20 10:00 07/23/20 10:00 Oxygen Flow Rate (L/min) 1 Oxygen Delivery Method Nasal Cannula Weight: 50.8 kg Body Mass Index (BMI) 21.1 Finger Stick Blood Glucose 99 Intake and Output for Last 24 Hours 07/21/20 07/22/20 07/23/20 23:59 23:59 23:59 Intake Total 1041.67 / 1041.67 Output Total 200 / 200 500 / 500 Balance -200 / -200 541.67 / 541.67 General: Alert, Cooperative, - HEENT: Atraumatic, Normocephalic Lungs: Clear to auscultation, Diminished Cardiovascular: Regular rate, No murmurs Abdomen: Bowel Sounds Present, Soft, Non Tender, Non-Distended Extremities: No clubbing, No edema Skin: No rashes, No breakdown, - Neurological: - Laboratory Results 07/22/20 16:10: WBC 11.4 H, RBC 4.62, Hgb 13.4, Hct 43.0, MCV 93.1, MCH 29.0, MCHC 31.2 L, RDW Std Deviation 60.6 H, RDW Coeff of Jeanine 17.9 H, Plt Count 388, MPV 9.7, Immature Gran % (Auto) 0.500, Neut % (Auto) 68.5, Lymph % (Auto) 22.7, [place] % (Auto) 7.4, Eos % (Auto) 0.5, Baso % (Auto) 0.4, Absolute Neuts (auto) 7.8 H, Absolute Lymphs (auto) 2.58, Nucleated RBC % 0 07/22/20 16:10: Sodium 141, Potassium 3.5, Chloride 110 H, Carbon Dioxide 25.0, Anion Gap 6, BUN 5 L, Creatinine 0.68, Estim Creat Clear Calc 63.98, Est GFR (MDRD) Af Amer 114, Est GFR (MDRD) Non-Af 94, BUN/Creatinine Ratio 7.4 L, Glucose 94, Calcium 8.7, Total Bilirubin 0.50, AST 19, ALT 19, Alkaline Phosphatase 191 H, Troponin I < 0.015, Total Protein 7.2, Albumin 3.0 L, Globulin 4.2, Albumin/Globulin Ratio 0.7 L 07/22/20 16:10: Magnesium 2.1, TSH 5.13 H 07/22/20 16:31: PT 12.3, INR 1.0 07/22/20 18:46: Ethyl Alcohol < 3.0 07/22/20 20:25: Urine Opiates Screen POSITIVE H, Urine Methadone Screen NEGATIVE, Ur Barbiturates Screen NEGATIVE, Ur Phencyclidine Scrn NEGATIVE, Ur Amphetamines Screen NEGATIVE, U Methamphetamin-MDMA POSITIVE H, U Benzodiazepines Scrn NEGATIVE, Urine Cocaine Screen NEGATIVE, U Cannabinoids Screen POSITIVE H, Ur Drug Screen Comment 07/23/20 05:24: WBC 12.4 H, RBC 4.25, Hgb 12.5, Hct 40.3, MCV 94.8, MCH 29.4, MCHC 31.0 L, RDW Std Deviation 61.4 H, RDW Coeff of Jeanine 17.7 H, Plt Count 356, MPV 9.3 07/23/20 05:24: PT 13.0, INR 1.0, APTT 26.8 07/23/20 05:24: Sodium 139, Potassium 3.8, Chloride 111 H, Carbon Dioxide 25.0, Anion Gap 3 L, BUN 6 L, Creatinine 0.59, Estim Creat Clear Calc 77.47, Est GFR (MDRD) Af Amer 134, Est GFR (MDRD) Non-Af 111, BUN/Creatinine Ratio 10.2, Glucose 98, Calcium 8.1 L, Free T4 1.13 07/23/20 05:24: Blood Type O POSITIVE, Antibody Screen NEGATIVE Current Medications Acetaminophen (Tylenol) 650 mg PO Q6H PRN PRN PRN Reason: Pain Score 1-10/Temp > 100.7 F Albuterol Sulfate (Ventolin Aerosols) 2.5 mg INHALATION Q2H PRN PRN PRN Reason: Shortness of Breath/Wheezing Atorvastatin Calcium (Lipitor) 40 mg PO QHS [facility] Last Admin: 07/22/20 20:46 Dose: Not Given Documented by: Bupropion HCl (Wellbutrin Sr (150mg Tablets)) 150 mg PO BID [facility] Last Admin: 07/23/20 09:14 Dose: Not Given Documented by: Doxepin HCl (Doxepin Hcl) 100 mg PO QHS [facility] Last Admin: 07/22/20 20:47 Dose: Not Given Documented by: Enoxaparin Sodium (Lovenox) 40 mg SC DAILY [facility] Last Admin: 07/23/20 09:15 Dose: Not Given Documented by: Famotidine (Pepcid) 40 mg PO DAILY [facility] Last Admin: 07/23/20 09:12 Dose: Not Given Documented by: Folic Acid (Folic Acid) 1 mg PO DAILY@0800 [facility] Last Admin: 07/23/20 09:10 Dose: Not Given Documented by: Sodium Chloride () 1,000 mls @ 100 mls/hr IV .Q10H [facility] Last Admin: 07/23/20 04:08 Dose: 100 mls/hr Documented by: Morphine Sulfate () 2 mg IV Q3H PRN PRN PRN Reason: Pain Score 6-10/10 Last Admin: 07/23/20 07:24 Dose: 2 mg Documented by: Nicotine (Nicoderm Cq (Pbkc)) 14 mg TRANSDERM. DAILY [facility] Last Admin: 07/23/20 11:32 Dose: Not Given Documented by: Nutritional Formula (Lactose Free) (Ensure Enlive) 120 ml PO 4X/DAY [facility] Last Admin: 07/23/20 09:12 Dose: Not Given Documented by: Ondansetron HCl (Zofran) 4 mg IV Q8H PRN PRN PRN Reason: NAUSEA/VOMITING Last Admin: 07/22/20 23:33 Dose: 4 mg Documented by: Oxycodone HCl (Oxyir) 5 mg PO Q4H PRN PRN PRN Reason: Pain Score 4-5/10 Last Admin: 07/23/20 10:54 Dose: 5 mg Documented by: Paroxetine HCl (Paxil) 20 mg PO DAILY [facility] Last Admin: 07/23/20 09:12 Dose: Not Given Documented by: Polyethylene Glycol (Miralax) 17 gm PO DAILY [facility] Last Admin: 07/23/20 09:14 Dose: Not Given Documented by: Sodium Chloride () 10 - 40 ml IV UD PRN PRN Reason: SALINE FLUSH Last Admin: 07/22/20 18:34 Dose: 10 ml Documented by: Thiamine HCl (Vitamin B1) 100 mg PO DAILYCM [facility] Last Admin: 07/23/20 09:10 Dose: Not Given Documented by: Assessment/Plan Patient seen and examined independently. Data reviewed. I agree with the above note by the nurse practitioner. 1. Right hip fracture: Orthopedics on consult. Plan is for surgery today. 2. Dysphasia: Patient noted esophageal mass. Patient to have EGD. Biopsy on the . Discussed with general surgery. Inpatient E&M: 88366 Subs Hosp L2
--- NOTE | 2020-07-23 16:00 | RAD_ITS ---
STUDY: Fluoroscopy PELVIS AND LEFT HIP REASON FOR EXAM: Female, 60 years old. Left Anterior Hip surgery TECHNIQUE: 2 views of the pelvis and hip. COMPARISON: None. FINDINGS: 2 fluoroscopic views demonstrating a femoral metallic post within the left femur. RAD/Hip 1 view with Pelvis IMPRESSION: Left side hip arthroplasty in progress. Electronically Signed: Sandy Tipton MD at 5:00 EDT Tel , Service support ,
[2020-07-23] MEDS: Lactated Ringers 1,000 ML 100 ML IV ×2 (16:41→22:34)
--- NOTE | 2020-07-23 17:00 | PCM.CONS.GEN ---
Reason for Consult Date of Consultation: 07/23/20 Reason for Consultation: Left hip pain. Requested by Dr Harris History of Present Illness: The patient is a 60 year old F with severe multiple medical comorbidities including stroke and diabetes with history of tobacco dependence presents today after falling when stepping down from the curb. Patient notes she fell on her left side. She hit her head as well as her shoulder. She reports some mild left ankle pain, left hip pain and some mild left shoulder pain. Left hip x-rays were obtained last night patient sustained a displaced left transcervical femoral neck fracture. Patient reports 10 out of 10 pain today. She has hemiplegia on the left side secondary to a previous stroke. She uses a walker occasionally. She does reside by herself. She has been independent up until now. Pain is worse with motion better with immobilization. Denies any associated numbness and tingling. Patient notes she is able to ambulate using her left lower extremity able to bear weight. She does feel like she drags it though. Past Medical History Past Medical History (Chronic Problems): Chronic Problems (Last Reviewed 07/22/20 @ 19:[address] 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 Sherlyn Hayes DO) Nicotine abuse (Chronic) Z72.0 Hyperlipidemia (Chronic) E78.5 Arthritis M19.90 Asthma J45.909 Difficulty swallowing R13.10 GERD (gastroesophageal reflux disease) K21.9 History of back problems Anxiety and depression F41.9, F32.9 COPD (chronic obstructive pulmonary disease) J44.9 Hypothyroidism E03.9 Left hemiplegia G81.94 Osteoporosis M81.0 Polycythemia vera D45 Allergies No Known Allergies Allergy (Verified 07/19/20 10:19) Home Medications: Ambulatory Orders Medication Instructions Recorded Atorvastatin Calcium 40 mg PO DAILY 12/26/18 Aspirin [Aspirin EC] 81 mg PO DAILY 12/10/19 Doxepin HCl 100 mg PO QHS 12/10/19 Paroxetine [Paxil] 20 mg PO DAILY 12/10/19 Bupropion HCl [Bupropion HCl Sr] 150 mg PO BID 05/20/20 Ergocalciferol [Vitamin D] 50,000 units PO QMONTH 05/20/20 Melatonin 10 mg PO QHS 05/20/20 cyclobenzaprine 10 mg tablet 10 mg PO DAILY tab 07/16/20 Famotidine [Pepcid] 40 mg PO DAILY 07/22/20 Nicotine [Nicoderm Cq] 7 mg TP DAILY 07/22/20 Surgical History: Surgical History (Last Reviewed 07/22/20 @ 19:[address] 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 Action required.) Mother Diabetes Cancer History Items: Cancer, Diabetes Paternal Family History: Family History (This Medical Record has been edited. Action required.) Mother Diabetes Cancer History Items: - - Denies known paternal medical history including cardiac history. Review of Systems Constitutional: Denies: Chills, Fever, Weight Change HEENT: Denies: Head Aches, Sinus Congestion, Sinus Drainage Cardiovascular: Denies: Chest Pain, Palpitations Respiratory: Denies: Cough, Shortness of breath at rest, Sputum production Gastrointestinal: Denies: Abdominal Pain, Nausea, Vomiting Genitourinary: Denies: Dysuria Musculoskeletal: Reports: Joint Pain, Joint Tenderness Skin: Denies: Rash, Wounds Neurological: Reports: Focal weakness, Incoordination, - - Hemiplegia. Denies: Numbness, Tingling Psychiatric: Denies: Anxiety, Depression, Homicidal Ideations, Suicidal Ideations Hematologic/ Lymphatic: Denies: Easy Bruising, Easy Bleeding Patient Problems: Active and Suspected Problems (Last Reviewed 07/22/20 @ 19:[address] Sherlyn Hayes DO) Hip fracture (Acute) Objective: Chest x-ray shows no acute fractures of the humerus proximally. Left hip and pelvis x-rays show severe displaced left femoral neck fracture. - Physical Exam Vitals/I&O's: Vital Signs Temp Pulse Resp BP Pulse Ox 99.6 F H 104 H 16 119/81 H 97 07/23/20 15:54 07/23/20 15:54 07/23/20 15:54 07/23/20 15:54 07/23/20 15:54 Oxygen Flow Rate (L/min) 2 Oxygen Delivery Method Nasal Cannula Weight: 111 lb 15.917 oz Body Mass Index (BMI) 21.1 Finger Stick Blood Glucose 99 Intake and Output for Last 24 Hours 07/21/20 07/22/20 07/23/20 23:59 23:59 23:59 Intake Total 2041.67 / 2041.67 Output Total 200 / 200 500 / 500 Balance -200 / -200 1541.67 / 1541.67 General: Alert, Oriented x3, Cooperative HEENT: Atraumatic Neck: No JVD Lungs: - - Nonlabored breathing Cardiovascular: - - Regular pulse rate Abdomen: Non-Distended Extremities: - - Left lower extremity: Skin clean, dry, and intact. Limb is shortened and externally rotated Motor is intact dorsiflexion, EHL and plantar flexion. Sensation is intact to light touch saphenous, fantasma,l superficial peroneal, deep peroneal and tibial distributions. Calves are soft and supple. Skin: No rashes Neurological: Cranial nerves II-XII grossly intact, - - Left hemiplegia Laboratory Results 07/22/20 16:10: Magnesium 2.1, TSH 5.13 H 07/22/20 18:46: Ethyl Alcohol < 3.0 07/22/20 20:25: Urine Opiates Screen POSITIVE H, Urine Methadone Screen NEGATIVE, Ur Barbiturates Screen NEGATIVE, Ur Phencyclidine Scrn NEGATIVE, Ur Amphetamines Screen NEGATIVE, U Methamphetamin-MDMA POSITIVE H, U Benzodiazepines Scrn NEGATIVE, Urine Cocaine Screen NEGATIVE, U Cannabinoids Screen POSITIVE H, Ur Drug Screen Comment 07/23/20 05:24: WBC 12.4 H, RBC 4.25, Hgb 12.5, Hct 40.3, MCV 94.8, MCH 29.4, MCHC 31.0 L, RDW Std Deviation 61.4 H, RDW Coeff of Jeanine 17.7 H, Plt Count 356, MPV 9.3 07/23/20 05:24: PT 13.0, INR 1.0, APTT 26.8 07/23/20 05:24: Sodium 139, Potassium 3.8, Chloride 111 H, Carbon Dioxide 25.0, Anion Gap 3 L, BUN 6 L, Creatinine 0.59, Estim Creat Clear Calc 77.47, Est GFR (MDRD) Af Amer 134, Est GFR (MDRD) Non-Af 111, BUN/Creatinine Ratio 10.2, Glucose 98, Calcium 8.1 L, Free T4 1.13 07/23/20 05:24: Blood Type O POSITIVE, Antibody Screen NEGATIVE Current Medications Acetaminophen (Tylenol) 650 mg PO Q6H PRN PRN PRN Reason: Pain Score 1-10/Temp > 100.7 F Albuterol Sulfate (Ventolin Aerosols) 2.5 mg INHALATION Q2H PRN PRN PRN Reason: Shortness of Breath/Wheezing Atorvastatin Calcium (Lipitor) 40 mg PO QHS [facility] Last Admin: 07/22/20 20:46 Dose: Not Given Documented by: Bupropion HCl (Wellbutrin Sr (150mg Tablets)) 150 mg PO BID [facility] Last Admin: 07/23/20 09:14 Dose: Not Given Documented by: Doxepin HCl (Doxepin Hcl) 100 mg PO QHS [facility] Last Admin: 07/22/20 20:47 Dose: Not Given Documented by: Enoxaparin Sodium (Lovenox) 40 mg SC DAILY [facility] Last Admin: 07/23/20 09:15 Dose: Not Given Documented by: Famotidine (Pepcid) 40 mg PO DAILY [facility] Last Admin: 07/23/20 09:12 Dose: Not Given Documented by: Folic Acid (Folic Acid) 1 mg PO DAILY@0800 [facility] Last Admin: 07/23/20 09:10 Dose: Not Given Documented by: Sodium Chloride () 1,000 mls @ 100 mls/hr IV .Q10H [facility] Last Admin: 07/23/20 14:09 Dose: 100 mls/hr Documented by: Lactated Ringer's () 1,000 mls @ 100 mls/hr IV .Q10H [facility] Last Admin: 07/23/20 16:41 Dose: 100 mls/hr Documented by: Morphine Sulfate () 2 mg IV Q3H PRN PRN PRN Reason: Pain Score 6-10/10 Last Admin: 07/23/20 07:24 Dose: 2 mg Documented by: Nicotine (Nicoderm Cq (Pbkc)) 14 mg TRANSDERM. DAILY [facility] Last Admin: 07/23/20 11:32 Dose: Not Given Documented by: Nutritional Formula (Lactose Free) (Ensure Enlive) 120 ml PO 4X/DAY [facility] Last Admin: 07/23/20 15:30 Dose: Not Given Documented by: Ondansetron HCl (Zofran) 4 mg IV Q8H PRN PRN PRN Reason: NAUSEA/VOMITING Last Admin: 07/22/20 23:33 Dose: 4 mg Documented by: Oxycodone HCl (Oxyir) 5 mg PO Q4H PRN PRN PRN Reason: Pain Score 4-5/10 Last Admin: 07/23/20 10:54 Dose: 5 mg Documented by: Paroxetine HCl (Paxil) 20 mg PO DAILY [facility] Last Admin: 07/23/20 09:12 Dose: Not Given Documented by: Polyethylene Glycol (Miralax) 17 gm PO DAILY [facility] Last Admin: 07/23/20 09:14 Dose: Not Given Documented by: Sodium Chloride () 10 - 40 ml IV UD PRN PRN Reason: SALINE FLUSH Last Admin: 07/22/20 18:34 Dose: 10 ml Documented by: Thiamine HCl (Vitamin B1) 100 mg PO DAILYCM [facility] Last Admin: 07/23/20 09:10 Dose: Not Given Documented by: Assessment/Plan All Active Problems (Last Reviewed 07/22/20 @ 19:[address] Sherlyn Hayes DO) Hip fracture (Acute) Left hip subcapital displaced femoral neck fracture. Natural history of the disease process and treatment options were discussed the patient. Patient has relatively good residual joint. She has significant medical comorbidities. Based on this I recommended we move forward with hip hemiarthroplasty. Operative and nonoperative treatments were discussed. In general patient would do poorly with a percutaneous pinning and nonoperative treatment. Risk and benefits of hemiarthroplasty were discussed as well as total hip replacement however I recommended hemiarthroplasty. These risks included but were not limited to blood loss, DVTs, PEs, rest damage complex, the risk of anesthesia including loss of life. Intraoperative fractures, postoperative fractures and dislocations. Patient demonstrated understanding was able to sign informed consent. Was debrided proceed with surgery today. 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 [facility] Office:
[2020-07-23] MEDS: Cefazolin 2 GM in 0.9% Normal Saline 100 ML IV (17:20)
--- NOTE | 2020-07-23 18:34 | RAD_ITS ---
STUDY: X-RAY - PELVIS AND LEFT HIP REASON FOR EXAM: Female, 60 years old. Post-op hip. TECHNIQUE: 2 views of the pelvis and hip. COMPARISON: None. FINDINGS: There is dense contrast within the colon. Normal visualized soft tissue structures. There is a left hip arthroplasty with overlying soft tissue edema and gas formation. There is mild degenerative change in the right hip joint. There is evidence for prior right-sided inferior pubic ramus fracture. RAD/Hip Min 2 Views (Portable) IMPRESSION: Status post left hip arthroplasty which appears to be in anatomic position and alignment with postoperative change. Electronically Signed: Sandy Tipton MD at 5:24 EDT Tel , Service support ,
--- NOTE | 2020-07-23 18:36 | PCM.OPRPT ---
Report of Operation Date of Procedure: 07/23/20 Pre-Operative Diagnosis: Left hip transcervical femoral neck fracture displaced Post-Operative Diagnosis: Left hip transcervical femoral neck fracture displaced Surgery/Procedure Performed:: Left hip hemiarthroplasty Description of Surgical Findings:: Stable hip cemented dental laboratory assistant: Colin Mora Type of Anesthesia:: General Anesthesiologist: Sindy Ingram Special Medications: 2 g Ancef, 1 g TXA at incision, 1 g TXA closure, 10 mg Decadron, joint cocktail (5 mg Duramorph, 30 mL of 0.5% Ropivicaine, 1000 units of epinephrine, 30 mg of Toradol) Specimen's removed: Femoral head Estimated Blood Loss (mL): 75 Fluids Replaced: 100 mL crystalloid Description of Procedure: Components used: Jordyn Mclean size 33mm cemented femoral stem Hornick bipolar 43 mm femoral head Hornick ball chromium 26 mm, -3 mm femoral head Brief history operative indications: 60-year-old female with multiple medical comorbidities fell yesterday sustained a hip fracture. She was seen in the preoperative area where she was marked. She was consented for surgery. She has left hip hemiarthroplasty and uses a walker occasionally. Risks and benefits of the seizure were discussed the patient clearly but not limited to blood loss, DVTs, PEs, nervous damage, infection, the risk of anesthesia include loss of life. Patient consented to surgery and wished to proceed. Procedure: On the date of procedure the patient's L hip was marked in the preoperative area. Patient was then taken back to the operating room where anesthesia assumed control of the C-spine and airway and administered anesthetic. Patient was transferred to the operating table and placed in the supine position. The hips were placed the break of the bed and a bump was placed in the sacrum. The L lower extremity was then prepped out in a sterile fashion using chlorhexidine while the surgeon scrubbed. Upon reentering the room the L lower extremity was draped in the standard orthopedic fashion and the incision was marked. A timeout was called and everyone agreed upon the side, the site, the procedure be performed, antibody given, and patient's identity. At this time incision was made through skin, subcutaneous tissue, and fat down to fascia. The fascia was then incised and the TFL was retracted laterally. A retractor was placed on the lateral border of the femoral neck. Attention was directed to the inferior portion of the approach and all crossing vessels were identified and appropriately coagulated. A retractor was then placed on the medial portion of the femoral neck. The anterior capsule was then cleared of all soft tissue and then H shaped capsulotomy was made. The retractors were then placed inside the capsule. The femoral neck was identified and a cleanup cut was made. At this time a power corkscrew was used to remove the femoral head. The femoral head was measures and a 43 mm bipolar component was selected. Soft tissue releases on the medial and lateral femoral neck were appropriately done, the leg was externally rotated and lateralized. A Graham retractor was placed medially and proximally to the greater trochanter this allowed appropriate visualization and exposure of the femoral canal. Rongeour was then used to remove excess lateral bone. A canal finder and entry broach were used to open the proximal canal. Once we verified we were down the femoral canal we subsequently broached up to a size 33 femur. The appropriate neck was placed in the previously selected head was trialed with a -3mm neck. Traction was pulled and the hip was reduced with internal rotation. Once it was appropriately reduced and stability was checked. There was minimal shuck, equal leg lengths and appropriate stability with hyperextension and external rotation as well as with 90? flexion and internal rotation. The trial components were then dislocated the proximal femur was again exposed and the components were removed from the wound. The final components were verified and opened. The wound was copiously irrigated out with normal saline. The acetabulum was checked for any residual debris. Cement restrictor was placed. Cement was used to pressurize the canal after being mixed. Femoral stem was cemented into place. After the cement had cured we again trialed a -3 which gave us adequate leg lengths. Live x-rays used to verify no intraoperative fractures occurred and verify equal leg lengths. The final femoral head component components were placed and impacted. Traction and internal rotation were again used to reduce the hip. After adequate reduction the hip remained stable with appropriate leg lengths. The wound was then copiously irrigated with normal saline once more, and hemostasis was obtained. Closure was then done using #1 Vicryl runner to close the fascia. A 2-0 Vicryl runner was used to close the subcutaneous skin. A 3-0 Monocryl and Steri-Strips were used for final skin closure. A Silverlon dressing was placed. Patient was awakened by anesthesia and transferred to the [facility]. Patient was then transferred to the PACU for recovery. Postoperative plan: Patient will get 24 hours postop antibiotics. Patient will get in-house physical therapy and will be weight-bear as tolerated. Patient will follow up in office in 2 weeks for a wound check and x-rays. Recommend 81 mg aspirin twice daily upon discharge can remain on Lovenox in-house. - Complications No intraoperative complications - Admit VTE Documentation VTE Present on Admission: No VTE Mechan Device Prophylaxis: SCD's, Thigh High FARNAZ Hose VTE Pharm Prophylaxis ordered?: Yes
[2020-07-23] MEDS: Scopolamine 1mg/72hr Patch 1 PATCH TD (19:35)
[2020-07-24] VITALS (14 sets, daily range): BP systolic 84–112; BP diastolic 45–77; PULSE 90–111; RESP 18; TEMP 36.6–36.9; O2SAT 88–98
[2020-07-24] MEDS: Cefazolin 1 GM/50 ML BAG IV ×2 (00:14→09:59)
[2020-07-24] MEDS: 0.9% Saline Lock 10 ML Syringe IV (04:17)
[2020-07-24] MEDS: Morphine 2 MG/ML Syringe IV (04:18)
[2020-07-24 05:10] LABS: Hematocrit 36.7 % (37-47); Hemoglobin 10.7 g/dL (12.0-15.0); Mean Corp Hgb Conc 29.2 g/dL (32-36); Mean Corpuscular Hgb 29.5 pg (27.0-32.0); Mean Corpuscular Volume 101.1 fL (81-99); Mean Platelet Vol. 9.2 fl (6.2-12.0); Platelet Count 309 K/mm3 (150-450); RBC Distribution Width CV 17.3 % (11.6-14.6); RBC Distribution Width SD 64.4 fl (35.1-43.9); Red Blood Count 3.63 M/mm3 (4.2-5.4); White Blood Count 14.6 K/mm3 (4.4-11.0)
[2020-07-24 05:27] LABS: Anion Gap 5 (5-15); BUN 7 mg/dL (7-18); Chloride 110 mmol/L (98-107); EST Glomerular Filtration Rate 134 mL/min (>60); Est Glom Filt Rate - Afr Amer 162 mL/min (>60); Estimated Creatinine Clearance 91.42 ml/min; Glucose 112 mg/dL (74-106); Potassium 3.9 mmol/L (3.5-5.1); Sodium Level 138 mmol/L (136-145)
[2020-07-24] MEDS: Thiamine Hydrochloride 100 MG Tablet PO (07:54)
[2020-07-24] MEDS: oxyCODONE 5 MG Tablet PO ×3 (07:54→20:39)
[2020-07-24] MEDS: Acetaminophen 325 MG Tablet 650 MG PO ×2 (07:54→15:26)
[2020-07-24] MEDS: Famotidine 20 MG Tablet 40 MG PO (07:55)
[2020-07-24] MEDS: buPROPion (SR) 150 MG Tablet.SA PO ×2 (07:55→20:40)
[2020-07-24] MEDS: Paroxetine 20 MG Tablet PO (07:56)
[2020-07-24] MEDS: Folic Acid 1 MG Tablet PO (07:56)
[2020-07-24] MEDS: Polyethylene Glycol 3350 17 GM PACKET PO (07:56)
[2020-07-24] MEDS: Senna/Docusate Sodium 1 Tablet 2 TABLET PO ×2 (10:03→20:39)
[2020-07-24] MEDS: Enoxaparin 40 MG/0.4 ML Syringe SC (10:03)
--- NOTE | 2020-07-24 10:25 | PN_ITS ---
<Racquel Guajardo [employer] - Last Filed: 07/24/20 10:32> Patient Problems: Active and Suspected Problems (Last Reviewed 07/22/20 @ 19:[address] Sherlyn charles, DO) Hip fracture (Acute) Subjective: Patient seen and examined. Pain significantly improved following left hip hemiarthroplasty. Plan for rehab at discharge. Patient denies new symptoms or complaints. - Physical Exam Vitals/I&O's: Vital Signs Temp Pulse Resp BP Pulse Ox 98.3 F 95 18 87/61 L 97 07/24/20 09:38 07/24/20 10:07 07/24/20 09:38 07/24/20 10:07 07/24/20 09:38 Oxygen Flow Rate (L/min) 3 Oxygen Delivery Method Nasal Cannula Weight: 111 lb 15.917 oz Body Mass Index (BMI) 21.1 Finger Stick Blood Glucose 99 Intake and Output for Last 24 Hours 07/22/20 07/23/20 07/24/20 23:59 23:59 23:59 Intake Total 2983.33 / 2983.33 1050.00 / 1050.00 Output Total 200 / 200 1150 / 1150 400 / 400 Balance -200 / -200 1833.33 / 1833.33 650.00 / 650.00 General: Alert, Oriented x3, Cooperative, - - Appears older than stated age HEENT: Atraumatic, PERRLA, EOMI, Normocephalic Oral: Dry Mucosa Neck: Supple, No JVD, Negative Carotid Bruits Lungs: Clear to auscultation, Diminished Cardiovascular: Regular rate, No murmurs Abdomen: Bowel Sounds Present, Soft, Non Tender, Non-Distended Extremities: No clubbing, No cyanosis, No edema Skin: No rashes, No breakdown, - - Left shoulder abrasion. Left hip postop dr stahl intact. 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7 F Last Admin: 07/24/20 07:54 Dose: 650 mg Documented by: Albuterol Sulfate (Ventolin Aerosols) 2.5 mg INHALATION Q2H PRN PRN PRN Reason: Shortness of Breath/Wheezing Atorvastatin Calcium (Lipitor) 40 mg PO QHS PENDING SALE TO [facility] Last Admin: 07/23/20 21:46 Dose: Not Given Documented by: Bupropion HCl (Wellbutrin Sr (150mg Tablets)) 150 mg PO BID [facility] Last Admin: 07/24/20 07:55 Dose: 150 mg Documented by: Doxepin HCl (Doxepin Hcl) 100 mg PO QHS PENDING SALE TO [facility] Last Admin: 07/23/20 21:46 Dose: Not Given Documented by: Enoxaparin Sodium (Lovenox) 40 mg SC DAILY [facility]END[facility] Last Admin: 07/24/20 10:03 Dose: 40 mg Documented by: Enteral Nutritional Formula (Ensure Surgery) 237 ml PO TIDCM PENDING SALE TO [facility] Last Admin: 07/24/20 10:01 Dose: Not Given Documented by: Famotidine (Pepcid) 40 mg PO DAILY [facility] Last Admin: 07/24/20 07:55 Dose: 40 mg Documented by: Folic Acid (Folic Acid) 1 mg PO DAILY@0800 [facility] Last Admin: 07/24/20 07:56 Dose: 1 mg Documented by: Sodium Chloride () 1,000 mls @ 100 mls/hr IV .Q10H PENDING SALE TO [facility] Last Admin: 07/23/20 23:59 Dose: Not Given Documented by: Lactated Ringer's () 1,000 mls @ 100 mls/hr IV .Q10H PENDING [facility]ALE [facility] Last Infusion: 07/24/20 10:00 Dose: Infused Documented by: Morphine Sulfate () 2 mg IV Q3H PRN PRN PRN Reason: Pain Score 6-10/10 Last Admin: 07/24/20 04:18 Dose: 2 mg Documented by: Nicotine (Nicoderm Cq (Pbkc)) 14 mg TRANSDERM. DAILY [facility] Last Admin: 07/24/20 10:03 Dose: 14 mg Documented by: Nutritional Formula (Lactose Free) (Ensure Enlive) 120 ml PO 4X/DAY PENDING SALE TO [facility] Last Admin: 07/24/20 07:54 Dose: 120 ml Documented by: Ondansetron HCl (Zofran) 4 mg IV Q8H PRN PRN PRN Reason: NAUSEA/VOMITING Last Admin: 07/22/20 23:33 Dose: 4 mg Documented by: Oxycodone HCl (Oxyir) 5 mg PO Q4H PRN PRN PRN Reason: Pain Score 4-5/10 Last Admin: 07/24/20 07:54 Dose: 5 mg Documented by: Paroxetine HCl (Paxil) 20 mg PO DAILY [facility] Last Admin: 07/24/20 07:56 Dose: 20 mg Documented by: Polyethylene Glycol (Miralax) 17 gm PO DAILY [facility] Last Admin: 07/24/20 07:56 Dose: 17 gm Documented by: Promethazine HCl (Phenergan) 12.5 mg IM Q6H PRN PRN; Protocol PRN Reason: NAUSEA/VOMITING Senna/Docusate Sodium (Senokot-S, Fidelina-Colace) 2 tablet PO BID PENDING SALE TO [facility] Last Admin: 07/24/20 10:03 Dose: 2 tablet Documented by: Sodium Chloride () 10 - 40 ml IV UD PRN PRN Reason: SALINE FLUSH Last Admin: 07/24/20 04:17 Dose: 10 ml Documented by: Thiamine HCl (Vitamin B1) [facility] Last Admin: 07/24/20 07:54 Dose: 100 mg Documented by: Medical Necessity - Tobacco Use Smoking Status: Current every day smoker Tobacco Use: Cigarettes Assessment/Plan All Active Problems (Last Reviewed 07/22/20 @ 19:[address] Sherlyn Hayes DO) Hip fracture (Acute) 1. Acute traumatic right hip fracture secondary to mechanical fall prior to admission-orthopedic consulted. Underwent left hip hemiarthroplasty 07/23/2020. PRN pain regimen. PT/OT. Plan for rehab unit at discharge pending acceptance. 2. Chronic dysphagia with recent finding of possible distal esophageal mass- scheduled for EGD with biopsy 07/25/2020. Speech therapy consult. General surgery consulted with plans for EGD with biopsy 07/25. Continue diet recommendations per speech therapy modifications. 3. History of CVA-Per records, secondary to severe right ICA stenosis. Unclear if carotid was ever addressed. Chronic left arm contractures and left-sided weakness as well as dysarthria and dysphagia. Aspirin, statin. 4. Tobacco dependence-1 pack/day smoker. Encouraged cessation. Patient reports she previously quit smoking however has restarted since her significant other recently. Nicotine replacement patch. 5. Chronic COPD-as needed albuterol aerosol. 6. Hypothyroidism-not on regimen. TSH 5.13. Free T4 1.13. 7. Chronic alcohol abuse-Denies recent heavy alcohol use. Thiamine, folic acid, multivitamin supplementation. CIWA. Alcohol level negative on admission. 8. Marijuana use-tox screen positive for cannabinoids, methamphetamine. 9. Depression/anxiety-continue bupropion, doxepin, paroxetine. 10. History of vitamin D deficiency-previously on 50,000 units monthly, this was held on admission due to recent vitamin D level and May 2020 greater than 100 which is toxic level. Recommend repeat level in 4 to 6 weeks as outpatient DVT prophylaxis- SCDs, lovenox sc Discharge planning: Rehab unit at discharge pending acceptance. This patient was seen by JOSE Faust under the supervision of Dr. Faust. <Charles Faust - Last Filed: 07/24/20 14:06> - Physical Exam Vitals/I&O's: Vital Signs Temp Pulse Resp BP Pulse Ox 36.6 C 102 H 18 85/50 L 88 07/24/20 10:54 07/24/20 12:00 07/24/20 10:54 07/24/20 12:00 07/24/20 12:00 Oxygen Flow Rate (L/min) 3 Oxygen Delivery Method Room Air Weight: 50.8 kg Body Mass Index (BMI) 21.1 Finger Stick Blood Glucose 99 Intake and Output for Last 24 Hours 07/22/20 07/23/2020 23:59 23:59 23:59 Intake Total 2983.33 / 2983.33 1300.00 / 1300.00 Output Total 200 / 200 1150 / 1150 500 / 500 Balance -200 / -200 1833.33 / 1833.33 800.00 / 800.00 General: Alert, Cooperative, - HEENT: Atraumatic, Normocephalic Lungs: Clear to auscultation, Diminished Cardiovascular: Regular rate, No murmurs Abdomen: Bowel Sounds Present, Soft, Non Tender, Non-Distended Skin: No rashes, No breakdown, - Neurological: - Psych/Mental Status: Flat Affect Laboratory Results 07/24/20 04:56: WBC 14.6 H, RBC 3.63 L, Hgb 10.7 L, Hct 36.7 L, MCV 101.1 H D, MCH 29.5, MCHC 29.2 L D, RDW Std Deviation 64.4 H, RDW Coeff of Jeanine 17.3 H, Plt Count 309, MPV 9.2 07/24/20 04:56: Sodium 138, Potassium 3.9, Chloride 110 H, Carbon Dioxide 23.0, Anion Gap 5, BUN 7, Creatinine 0.50 L, Estim Creat Clear Calc 91.42, Est GFR (MDRD) Af Amer 162, Est GFR (MDRD) Non-Af 134, BUN/Creatinine Ratio 14.0, Glucose 112 H, Calcium 8.0 L Current Medications Acetaminophen (Tylenol) 650 mg PO Q6H PRN PRN PRN Reason: Pain Score 1-10/Temp > 100.7 F Last Admin: 07/24/20 07:54 Dose: 650 mg Documented by: Albuterol Sulfate (Ventolin Aerosols) 2.5 mg INHALATION Q2H PRN PRN PRN Reason: Shortness of Breath/Wheezing Atorvastatin Calcium (Lipitor) 40 mg PO QHS PENDING SALE TO [facility] Last Admin: 07/23/20 21:46 Dose: Not Given Documented by: Bupropion HCl (Wellbutrin Sr (150mg Tablets)) 150 mg PO BID PENDING [facility] Last Admin: 07/24/20 07:55 Dose: 150 mg Documented by: Doxepin HCl (Doxepin Hcl) 100 mg PO QHS PENDING SALE [facility] Last Admin: 07/23/20 21:46 Dose: Not Given Documented by: Enoxaparin Sodium (Lovenox) 40 mg SC DAILY [facility]END[facility] Last Admin: 07/24/20 10:03 Dose: 40 mg Documented by: Enteral Nutritional Formula (Ensure Surgery) 237 ml PO TIDCM PENDING SALE [facility] Last Admin: 07/24/20 11:49 Dose: Not Given Documented by: Famotidine (Pepcid) 40 mg PO DAILY [facility] Last Admin: 07/24/20 07:55 Dose: 40 mg Documented by: Folic Acid (Folic Acid) 1 mg PO DAILY@0800 PEND[facility] Last Admin: 07/24/20 07:56 Dose: 1 mg Documented by: Sodium Chloride () 1,000 mls @ 150 mls/hr IV .Q6H40M [facility] Stop: 07/24/20 19:29 Last Admin: 07/24/20 13:09 Dose: 150 mls/hr Documented by: Morphine Sulfate () 2 mg IV Q3H PRN PRN PRN Reason: Pain Score 6-10/10 Last Admin: 07/24/20 04:18 Dose: 2 mg Documented by: Nicotine (Nicoderm Cq (Pbkc)) 14 mg TRANSDERM. DAILY [facility] Last Admin: 07/24/20 10:03 Dose: 14 mg Documented by: Nutritional Formula (Lactose Free) (Ensure Enlive) 120 ml PO 4X/DAY PEND[facility] Last Admin: 07/24/20 07:54 Dose: 120 ml Documented by: Ondansetron HCl (Zofran) 4 mg IV Q8H PRN PRN PRN Reason: NAUSEA/VOMITING Last Admin: 07/22/20 23:33 Dose: 4 mg Documented by: Oxycodone HCl (Oxyir) 5 mg PO Q4H PRN PRN PRN Reason: Pain Score 4-5/10 Last Admin: 07/24/20 07:54 Dose: 5 mg Documented by: Paroxetine HCl (Paxil) 20 mg PO DAILY [facility] Last Admin: 07/24/20 07:56 Dose: 20 mg Documented by: Polyethylene Glycol (Miralax) 17 gm PO DAILY [facility] Last Admin: 07/24/20 07:56 Dose: 17 gm Documented by: Promethazine HCl (Phenergan) 12.5 mg IM Q6H PRN PRN; Protocol PRN Reason: NAUSEA/VOMITING Senna/Docusate Sodium (Senokot-S, Fidelina-Colace) 2 tablet PO BID PEND[facility] Last Admin: 07/24/20 10:03 Dose: 2 tablet Documented by: Sodium Chloride () 10 - 40 ml IV UD PRN PRN Reason: SALINE FLUSH Last Admin: 07/24/20 04:17 Dose: 10 ml Documented by: Thiamine HCl (Vitamin B1) 100 mg PO DAILYCM PENDING SALE [facility] Last Admin: 07/24/20 07:54 Dose: 100 mg Documented by: Assessment/Plan Patient seen and examined independently. Data reviewed. I agree with the above note by the nurse practitioner. 1. Right hip fracture: Orthopedics on consult. s/p left hip transcervical femoral neck fracture. 2. Dysphasia: Patient noted esophageal mass. Patient to have EGD. Biopsy on the . Discussed with general surgery. Inpatient E&M: 53077 Subs Hosp L2
--- NOTE | 2020-07-24 12:30 | PCM.PN.ORT ---
Patient Problems: Active and Suspected Problems (Last Reviewed 07/22/20 @ 19:[address] Sherlyn Hayes, DO) Hip fracture (Acute) Subjective: The patient was sitting in bedside chair upon examination. Patient denies any chest pain, dizziness, lightheadedness, nausea or vomiting, or calf pain. Pain is controlled on medications. No adverse overnight events. Patient states she has no pain in her left hip. She has been working with physical therapy. Patient does complain of shortness of breath when she is up walking but does have underlying COPD and asthma. She had this prior to surgery. Plan is for patient to be discharged to the rehab unit once approval. Objective: Afebrile. Patient does have episodes of tachycardia and low blood pressure. Currently denies any chest pain Patient is able to plantarflex and dorsiflex actively. Sensation is intact to light touch to saphenous, sural, superficial and deep peroneal, and tibial distribution. Dressing is clean dry and intact. Negative Homans bilaterally, negative signs and symptoms of DVT. - Physical Exam Vitals/I&O's: Vital Signs Temp Pulse Resp BP Pulse Ox 97.8 F 102 H 18 85/50 L 88 07/24/20 10:54 07/24/20 12:00 07/24/20 10:54 07/24/20 12:00 07/24/20 12:00 Oxygen Flow Rate (L/min) 2 Oxygen Delivery Method Room Air Weight: 50.8 kg Body Mass Index (BMI) 21.1 Finger Stick Blood Glucose 99 Intake and Output for Last 24 Hours 07/22/20 07/23/20 07/24/20 23:59 23:59 23:59 Intake Total 2983.33 / 2983.33 1300.00 / 1300.00 Output Total 200 / 200 1150 / 1150 500 / 500 Balance -200 / -200 1833.33 / 1833.33 800.00 / 800.00 General: Alert, Oriented x3, Cooperative, No apparent distress Laboratory Results 07/24/20 04:56: WBC 14.6 H, RBC 3.63 L, Hgb 10.7 L, Hct 36.7 L, MCV 101.1 H D, MCH 29.5, MCHC 29.2 L D, RDW Std Deviation 64.4 H, RDW Coeff of Jeanine 17.3 H, Plt Count 309, MPV 9.2 07/24/20 04:56: Sodium 138, Potassium 3.9, Chloride 110 H, Carbon Dioxide 23.0, Anion Gap 5, BUN 7, Creatinine 0.50 L, Estim Creat Clear Calc 91.42, Est GFR (MDRD) Af Amer 162, Est GFR (MDRD) Non-Af 134, BUN/Creatinine Ratio 14.0, Glucose 112 H, Calcium 8.0 L Current Medications Acetaminophen (Tylenol) 650 mg PO Q6H PRN PRN PRN Reason: Pain Score 1-10/Temp > 100.7 F Last Admin: 07/24/20 07:54 Dose: 650 mg Documented by: Albuterol Sulfate (Ventolin Aerosols) 2.5 mg INHALATION Q2H PRN PRN PRN Reason: Shortness of Breath/Wheezing Atorvastatin Calcium (Lipitor) 40 mg PO QHS [facility] Last Admin: 07/23/20 21:46 Dose: Not Given Documented by: Bupropion HCl (Wellbutrin Sr (150mg Tablets)) 150 mg PO BID [facility] Last Admin: 07/24/20 07:55 Dose: 150 mg Documented by: Doxepin HCl (Doxepin Hcl) 100 mg PO QHS [facility] Last Admin: 07/23/20 21:46 Dose: Not Given Documented by: Enoxaparin Sodium (Lovenox) 40 mg SC DAILY [facility] Last Admin: 07/24/20 10:03 Dose: 40 mg Documented by: Enteral Nutritional Formula (Ensure Surgery) 237 ml PO TIDCM [facility] Last Admin: 07/24/20 11:49 Dose: Not Given Documented by: Famotidine (Pepcid) 40 mg PO DAILY [facility] Last Admin: 07/24/20 07:55 Dose: 40 mg Documented by: Folic Acid (Folic Acid) 1 mg PO DAILY@0800 [facility] Last Admin: 07/24/20 07:56 Dose: 1 mg Documented by: Sodium Chloride () 1,000 mls @ 100 mls/hr IV .Q10H [facility] Last Admin: 07/24/20 11:49 Dose: Not Given Documented by: Lactated Ringer's () 1,000 mls @ 100 mls/hr IV .Q10H [facility] Last Infusion: 07/24/20 10:00 Dose: Infused Documented by: Morphine Sulfate () 2 mg IV Q3H PRN PRN PRN Reason: Pain Score 6-10/10 Last Admin: 07/24/20 04:18 Dose: 2 mg Documented by: Nicotine (Nicoderm Cq (Pbkc)) 14 mg TRANSDERM. DAILY [facility] Last Admin: 07/24/20 10:03 Dose: 14 mg Documented by: Nutritional Formula (Lactose Free) (Ensure Enlive) 120 ml PO 4X/DAY [facility] Last Admin: 07/24/20 07:54 Dose: 120 ml Documented by: Ondansetron HCl (Zofran) 4 mg IV Q8H PRN PRN PRN Reason: NAUSEA/VOMITING Last Admin: 07/22/20 23:33 Dose: 4 mg Documented by: Oxycodone HCl (Oxyir) 5 mg PO Q4H PRN PRN PRN Reason: Pain Score 4-5/10 Last Admin: 07/24/20 07:54 Dose: 5 mg Documented by: Paroxetine HCl (Paxil) 20 mg PO DAILY [facility] Last Admin: 07/24/20 07:56 Dose: 20 mg Documented by: Polyethylene Glycol (Miralax) 17 gm PO DAILY [facility] Last Admin: 07/24/20 07:56 Dose: 17 gm Documented by: Promethazine HCl (Phenergan) 12.5 mg IM Q6H PRN PRN; Protocol PRN Reason: NAUSEA/VOMITING Senna/Docusate Sodium (Senokot-S, Fidelina-Colace) 2 tablet PO BID [facility] Last Admin: 07/24/20 10:03 Dose: 2 tablet Documented by: Sodium Chloride () 10 - 40 ml IV UD PRN PRN Reason: SALINE FLUSH Last Admin: 07/24/20 04:17 Dose: 10 ml Documented by: Thiamine HCl ([facility]itamin B1) [facility] Last Admin: 07/24/20 07:54 Dose: 100 mg Documented by: Medical Necessity - Tobacco Use Smoking Status: Current every day smoker Tobacco Use: Cigarettes Assessment/Plan All Active Problems (Last Reviewed 07/22/20 @ 19:[address] Sherlyn Hayes DO) Hip fracture (Acute) 1. S/P left hip hemiarthroplasty POD #1 2. Continue Pain Medications: Tylenol and oxycodone 3. DVT Prophylaxis: Currently on Lovenox. Recommend upon discharge aspirin 81 mg twice daily for 4 weeks postoperatively 4. PT/OT: Weightbearing as tolerated with walker 5. H & H: 10.7/36.7, asymptomatic. Secondary to acute blood loss from surgery 6. Encouraged Incentive Spirometry 7. Continue postoperative medical management per medicine 8. Disposition: Orthopedically stable, okay for discharge when medically ready. Patient will require 2-week follow-up with [facility] for x-rays and incision check. Continue with pain medications per primary medicine. She is currently doing very well and does not complain of any significant pain with her left postoperative hip. Recommend aspirin 81 mg twice daily for 4 weeks postoperatively upon discharge for DVT prophylaxis. Patient will continue with the Mepilex dressing for 5 days postoperatively. She can remove the dressing 5 days postoperatively and at that time only use gentle soap and water over the incision. She has not to place any ointments, Neosporin, salves, or alcohol pads on the incision for 6 weeks. She will use a walker. She will require postoperative physical therapy for range of motion and strengthening exercises. Recommend walker initially. Please contact orthopedics with any concerns or question. Appreciate the consult and helping with management of this patient.
--- NOTE | 2020-07-24 12:36 | DCINST_ITS ---
Discharge Activity: May Not Drive - while taking narcotic pain medications. May shower in (days): 1 - Turn dressing away from water. Dressing must be intact to skin Weight Bearing Status: Weight bearing as tolerated - With walker Elevate: Operative Extremity Additional Activity Instructions:: Wear elastic stockings for 2 weeks. DO NOT use alcohol with narcotic pain medication. DO NOT make important decisions while taking narcotic medication. If you have problems with taking your medication (rash, itching, nausea, etc.) call the office at once. Call your doctor if your incision/area has: Increased Pain/ Swelling, Increased Redness, Foul Smelling Discharge Call your doctor if you observe: Fever of 101 or Higher Remove Dressing in (days):: 4 - Okay to remove dressing on July 28, 2020 Allergies/Adverse Reactions: Allergies No Known Allergies Allergy (Verified 07/19/20 10:19) Medications to take at Discharge Atorvastatin Calcium 40 mg PO DAILY 12/26/18 Aspirin [Aspirin EC] 81 mg PO DAILY 12/10/19 Doxepin HCl 100 mg PO QHS 12/10/19 Paroxetine [Paxil] 20 mg PO DAILY 12/10/19 Bupropion HCl [Bupropion HCl Sr] 150 mg PO BID 05/20/20 Ergocalciferol [Vitamin D] 50,000 units PO QMONTH 05/20/20 Melatonin 10 mg PO QHS 05/20/20 cyclobenzaprine 10 mg tablet 10 mg PO DAILY tab 07/16/20 Famotidine [Pepcid] 40 mg PO DAILY 07/22/20 Nicotine [Nicoderm Cq] 7 mg TP DAILY 07/22/20 Primary Care Physician: Zachary Vargas Chi, MD [Primary Care Provider] - Test Results: Test results from this visit will be discussed in further detail at your follow- up appointment, if applicable. Please Follow Up With: Pelon Rayo MD When: f/u 2 weeks with xrays and incision check
[2020-07-24] MEDS: 0.9% Normal Saline 1,000 ML 150 ML IV (13:09)
--- NOTE | 2020-07-24 14:50 | CASEMGMT ---
Addendum entered by Faustina Romero 07/24/20 14:50: Plan: [facility] pending pre-cert Original Note: Social Work Note PT/OT are available for pt. SW placed a call to Anali with [facility] and left message to submit for pre-cert. Faustina Romero [employer]INUOUS [employer]ESS, CUSTOMER EXPERIENCE ANALYST
[2020-07-24] MEDS: Atorvastatin Calcium 40 MG Tablet PO (20:40)
[2020-07-24] MEDS: DOXEPIN HCL 50 MG CAPSULE 100 MG PO (20:40)
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
[2020-07-25] VITALS (16 sets, daily range): BP systolic 85–143; BP diastolic 42–85; PULSE 96–113; RESP 18–20; TEMP 36.6–37.3; O2SAT 92–99
[2020-07-25] MEDS: 0.9% Normal Saline 1,000 ML 999 ML IV ×2 (00:01→01:04)
[2020-07-25 00:17] LABS: Hematocrit 29.8 % (37-47); Hemoglobin 9.2 g/dL (12.0-15.0)
--- NOTE | 2020-07-25 03:14 | NURSING ---
Paris ALMEIDA found a small plastic bag with a pill in it laying on pt's shoulder. She gave pill to Omega RN who notified me about it. We identified it as morphine. I talked to Jacquelyn nursing control room supervisor about what to do with it. She advised me to lock it up and advise my business strategy manager in the am. Omega and I both verified with pt that we were locking up her morphine tablet and we gave her a receipt for the envelope and then locked it up in our [facility] room. Will address situation in am with business strategy manager. Cautioned pt that she can't be taking anything from home because her blood pressure has been dropping and that is really dangerous. She advised that she had no other meds with her and told us we could look through her purse. We did not search her purse but instead with pt's consent placed it in her closet in room so it would not be in her bed with her.which is where she had been keeping it.
--- NOTE | 2020-07-25 04:41 | PCM.PN.BLA ---
Progress Note Blood pressure improved after fluid bolus. However was notified that patient had morphine pill found on her. STROKE Vital Signs/Narrative: Vital Signs Temp Pulse Resp BP Pulse Ox 07/25/20 02:46 97.9 F 107 H 18 108/43 L 95 07/25/20 01:06 18
[2020-07-25 06:27] LABS: Hematocrit 28.7 % (37-47); Hemoglobin 8.6 g/dL (12.0-15.0); Mean Corpuscular Hgb 28.5 pg (27.0-32.0); Mean Platelet Vol. 9.2 fl (6.2-12.0); Platelet Count 273 K/mm3 (150-450); RBC Distribution Width CV 17.6 % (11.6-14.6); RBC Distribution Width SD 62.3 fl (35.1-43.9); Red Blood Count 3.02 M/mm3 (4.2-5.4); White Blood Count 10.1 K/mm3 (4.4-11.0)
--- NOTE | 2020-07-25 10:44 | PCM.PN.BLA ---
Progress Note I performed an EGD on the patient. The patient had severe esophagitis in the distal third of the esophagus with tightening. Biopsies were obtained. I recommend that she be started on an IV PPI immediately and on discharge she go home with a twice daily PPI. Patient should follow-up with me to schedule a one-month follow-up EGD to ensure resolution. I will call her with pathology. I have ordered a full liquid diet and I would discharge her home on a full liquid diet or very soft foods. Cornelius Willard MD Pager: [facility] [address] [place] [address], [address] [place] [address] Office: STRO[facility] Vital Signs/Narrative: Vital Signs Temp Pulse Resp BP Pulse Ox 07/25/20 08:36 98.8 F 108 H 20 H 112/55 L 92 07/25/20 07:07 96
--- NOTE | 2020-07-25 10:50 | OP.EGD_ITS ---
Patient Name: Carolyn Watt Procedure Date: 07/25/2020 10:13 AM Date of : 1960 Age: 60 Procedure: Upper GI endoscopy Indications: Dysphagia Providers: Cornelius Willard MD Medicines: Monitored Anesthesia Care Patient Profile: This is a 60 year old female. Refer to note in patient chart for documentation of history and physical. Complications: No immediate complications. Estimated blood loss: Minimal. Procedure: Pre-Anesthesia Assessment: - Prior to the procedure, a History and Physical was performed, and patient medications and allergies were reviewed. The patient's tolerance of previous anesthesia was also reviewed. The risks and benefits of the procedure and the sedation options and risks were discussed with the patient. All questions were answered, and informed consent was obtained. Prior Anticoagulants: The patient has taken Lovenox (enoxaparin), last dose was 1 day prior to procedure. After reviewing the risks and benefits, the patient was deemed in satisfactory condition to undergo the procedure. After obtaining informed consent, the endoscope was passed under direct vision. Throughout the procedure, the patient's blood pressure, pulse, and oxygen saturations were monitored continuously. The Endoscope was introduced through the mouth, and advanced to the second part of duodenum. The upper GI endoscopy was accomplished without difficulty. The patient tolerated the procedure well. Scope In: 10:36:19 AM Scope Out: 10:42:30 AM Total Procedure Duration Time 0 hours 6 minutes 11 seconds Findings: Pediatric Grade 3 (circumferential erosive or exudative lesions) esophagitis with no bleeding was found 26 to 34 cm from the incisors. Biopsies were taken with a cold forceps for histology. Localized minimal inflammation with hemorrhage characterized by adherent blood was found in the stomach. The examined duodenum was normal. A small hiatal hernia was present. Impression: - Pediatric Grade 3 erosive esophagitis. Biopsied. - Gastritis with hemorrhage. - Normal examined duodenum. - Small hiatal hernia. Recommendation: - [facility]. - Full liquid diet. - Continue present medications. - Await pathology results. - Use Protonix (pantoprazole) 20 mg PO BID. Procedure Code(s): --- Professional --- 73326, Esophagogastroduodenoscopy, flexible, transoral; with biopsy, single or multiple Diagnosis Code(s): --- Professional --- K20.8, Other esophagitis K29.71, Gastritis, unspecified, with bleeding K44.9, Diaphragmatic hernia without obstruction or gangrene R13.10, Dysphagia, unspecified CPT copyright 2017 [employer]. All rights reserved. The codes documented in this report are preliminary and upon director corporate review may be revised to meet current compliance requirements. Cornelius Willard MD 07/25/2020 10:49:41 AM This report has been signed electronically. Number of Addenda: 0 Note Initiated On: 07/25/2020 10:13 AM
--- NOTE | 2020-07-25 10:50 | OP.CCLET_ITS ---
07/25/2020 Zachary Vargas MD [address] [place] [address] Re : Upper GI endoscopy procedure for Carolyn Watt Dear Dr. Vargas This procedure was performed on July. My impressions and recommendations are as follows: Impressions : - Pediatric Grade 3 erosive esophagitis. Biopsied. - Gastritis with hemorrhage. - Normal examined duodenum. - Small hiatal hernia. Recommendations : - [facility]. - Full liquid diet. - Continue present medications. - Await pathology results. - Use Protonix (pantoprazole) 20 mg PO BID. My findings are described in the full procedure note, which is enclosed. If I can be of further assistance, please feel free to contact me at Doctor phone number(s): , Work: . Sincerely, Cornelius Willard MD 07/25/2020 10:49:41 AM This report has been signed electronically.
--- NOTE | 2020-07-25 10:55 | EGD_PTH ---
PATIENT: ALISTAIR MUELLER LOC: MS3 U#:[id number] AGE/SX: 60/F ROOM: RI311 RE07/22/[address]: Dr. Charles Faust DO : 1960 BED: 1 DIS: 07/26/2020 SPEC #: [id number] RECD: 07/25/20 11:57 STATUS: GRANT DARBY #: [id number] RIYA: 07/25/20 10:[address]: Cornelius Willard DEPT: SURGICAL PATHOLOGY RECD BY: Ryan Castrejon ENTERED: 07/25/20 12:17 SP TYPE: EGD BIOPSY OTHR DR: DO Dr. Sherlyn Sauceda DO Dr. Steven Widmer, MD Dr. Tai Chi Kwok, MD Tissues: Esophagus, NOS Procedures: Special Stain Group I Surgery Specimen Level IV GMS Stain (control) HEADER OPERATION: EGD (MAC) PRE-OP DIAGNOSIS: Dysphagia TISSUE SUBMITTED: Distal esophagus biopsy for histo, rule out fungus MICROSCOPIC DIAGNOSIS Distal esophagus, biopsy: Fragments of squamous mucosa with extensive ulceration and marked acute inflammation. Special stain for fungi is negative for organisms; matched control is appropriate. See comment. MARGARET:sandra 07/26/20 COMMENT Correlation with clinical, endoscopic findings and appropriate follow up are necessary. MICROSCOPIC DESCRIPTION Slides are reviewed. GROSS DESCRIPTION Received in fixative is one container labeled with the patient's name and designated distal esophagus biopsy. The specimen consists of multiple irregular fragments of light kerr soft tissue that in aggregate measure 1 x 0.6 x 0.1 cm. The specimen is totally submitted in one cassette. / MARGARET:sandra 07/25/20 TC:2 CPT: 33099, 02478
[2020-07-25] MEDS: Folic Acid 1 MG Tablet PO (11:45)
[2020-07-25] MEDS: Thiamine Hydrochloride 100 MG Tablet PO (11:45)
[2020-07-25] MEDS: Paroxetine 20 MG Tablet PO (11:45)
[2020-07-25] MEDS: buPROPion (SR) 150 MG Tablet.SA PO ×2 (11:45→21:40)
[2020-07-25] MEDS: Famotidine 20 MG Tablet 40 MG PO (11:45)
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
--- NOTE | 2020-07-25 16:32 | CASEMGMT ---
Social Work Note SW received call from Anali with [facility] stating pt was denied. SW in to speak with pt. SW updated pt that insurance denied [facility] but would likely pay for SNF. Pt states I don't want to go to a SNF. Pt states that her boyfriend at [facility] and she doesn't want to go back there. SW explained that she can go to a different SNF. Pt again states that she doesn't want to go to a SNF, is agreeable to home with HHC. SW spoke with pt regarding aide services in the home. Pt would like information on community resources and aide services. SW updated pt that RN SANKET will speak with pt regarding HHC tomorrow and this worker will put together packet of community resources and give to pt tomorrow. Pt states understanding. Plan: Home with HHC, likely tomorrow Faustina Romero [employer]
[2020-07-25] MEDS: Atorvastatin Calcium 40 MG Tablet PO (21:40)
[2020-07-25] MEDS: DOXEPIN HCL 50 MG CAPSULE 100 MG PO (21:40)
[2020-07-26] VITALS (7 sets, daily range): BP systolic 104–111; BP diastolic 54–72; PULSE 87–107; RESP 18–20; TEMP 36.7–36.8; O2SAT 92–97
--- NOTE | 2020-07-26 07:22 | NURSING ---
doty discontinued at 0720 on 07/26/20
[2020-07-26] MEDS: Thiamine Hydrochloride 100 MG Tablet PO (08:48)
[2020-07-26] MEDS: Famotidine 20 MG Tablet 40 MG PO (08:48)
[2020-07-26] MEDS: Folic Acid 1 MG Tablet PO (08:49)
[2020-07-26] MEDS: Paroxetine 20 MG Tablet PO (08:50)
[2020-07-26] MEDS: Pantoprazole Sodium 20 MG Tablet PO (08:54)
--- NOTE | 2020-07-26 09:25 | PCM.PN.SRG ---
Patient Problems: Active and Suspected Problems (Last Reviewed 07/22/20 @ 19:[address] Sherlyn Hayes, DO) Hip fracture (Acute) Subjective: Patient has no complaints this morning - Physical Exam Vitals/I&O's: Vital Signs Temp Pulse Resp BP Pulse Ox 98.3 F 93 20 H 104/57 L 94 07/26/20 08:55 07/26/20 08:55 07/26/20 08:55 07/26/20 08:55 07/26/20 08:55 Oxygen Flow Rate (L/min) 2 Oxygen Delivery Method Room Air Weight: 111 lb 15.917 oz Body Mass Index (BMI) 21.1 Finger Stick Blood Glucose 99 Intake and Output for Last 24 Hours 07/24/20 07/25/20 07/26/20 23:59 23:59 23:59 Intake Total 2700.00 / 2700.00 3110 / 3110 544 / 544 Output Total 950 / 950 1300 / 1300 400 / 400 Balance 1750.00 / 1750.00 1810 / 1810 144 / 144 General: Alert, Oriented x3 Lungs: Normal air movement Cardiovascular: Regular rate, Regular Rhythm Abdomen: Soft, Non Tender, Non-Distended Current Medications Acetaminophen (Tylenol) 650 mg PO Q6H PRN PRN PRN Reason: Pain Score 1-10/Temp > 100.7 F Last Admin: 07/24/20 15:26 Dose: 650 mg Documented by: Albuterol Sulfate (Ventolin Aerosols) 2.5 mg INHALATION Q2H PRN PRN PRN Reason: Shortness of Breath/Wheezing Atorvastatin Calcium (Lipitor) 40 mg PO QHS [facility] Last Admin: 07/25/20 21:40 Dose: 40 mg Documented by: Bupropion HCl (Wellbutrin Sr (150mg Tablets)) 150 mg PO BID [facility] Last Admin: 07/26/20 08:52 Dose: Not Given Documented by: Doxepin HCl (Doxepin Hcl) 100 mg PO QHS [facility] Last Admin: 07/25/20 21:40 Dose: 100 mg Documented by: Enoxaparin Sodium (Lovenox) 40 mg SC DAILY [facility] Last Admin: 07/26/20 08:52 Dose: Not Given Documented by: Enteral Nutritional Formula (Ensure Surgery) 237 ml PO TIDCM [facility] Last Admin: 07/26/20 08:38 Dose: Not Given Documented by: Famotidine (Pepcid) 40 mg PO DAILY [facility] Last Admin: 07/26/20 08:48 Dose: 40 mg Documented by: Folic Acid (Folic Acid) 1 mg PO DAILY@0800 [facility] Last Admin: 07/26/20 08:49 Dose: 1 mg Documented by: Sodium Chloride () 250 mls @ 15 mls/hr IV .[id number] PRN PRN Reason: Additional IVPB Infusion Last Infusion: 07/26/20 04:47 Dose: Infused Documented by: Nicotine (Nicoderm Cq (Pbkc)) 14 mg TRANSDERM. DAILY [facility] Last Admin: 07/26/20 08:49 Dose: 14 mg Documented by: Nutritional Formula (Lactose Free) (Ensure Enlive) 120 ml PO 4X/DAY [facility] Last Admin: 07/26/20 08:48 Dose: 120 ml Documented by: Ondansetron HCl (Zofran) 4 mg IV Q8H PRN PRN PRN Reason: NAUSEA/VOMITING Last Admin: 07/22/20 23:33 Dose: 4 mg Documented by: Oxycodone HCl (Oxyir) 5 mg PO Q4H PRN PRN PRN Reason: Pain Score 4-5/10 Last Admin: 07/24/20 20:39 Dose: 5 mg Documented by: Pantoprazole Sodium (Protonix) 20 mg PO BID [facility] Last Admin: 07/26/20 08:54 Dose: 20 mg Documented by: Paroxetine HCl (Paxil) 20 mg PO DAILY [facility] Last Admin: 07/26/20 08:50 Dose: 20 mg Documented by: Polyethylene Glycol (Miralax) 17 gm PO DAILY [facility] Last Admin: 07/26/20 08:52 Dose: Not Given Documented by: Promethazine HCl (Phenergan) 12.5 mg IM Q6H PRN PRN; Protocol PRN Reason: NAUSEA/VOMITING Senna/Docusate Sodium (Senokot-S, Fidelina-Colace) 2 tablet PO BID [facility] Last Admin: 07/26/20 08:49 Dose: Not Given Documented by: Sodium Chloride () 10 - 40 ml IV UD PRN PRN Reason: SALINE FLUSH Last Admin: 07/24/20 04:17 Dose: 10 ml Documented by: [facility]) [facility] Last Admin: 07/26/20 08:48 Dose: 100 mg Documented by: Medical Necessity - Tobacco Use Smoking Status: Current every day smoker Tobacco Use: Cigarettes Assessment/Plan All Active Problems (Last Reviewed 07/22/20 @ 19:[address] Sherlyn Hayes DO) Hip fracture (Acute) 60-year-old female with esophagitis and stricture 1. Patient had EGD yesterday which showed stricturing and severe esophagitis of the distal third of the esophagus. Patient was started on oral PPI twice a day and should be discharged home on oral PPI twice a day. Patient is diet should not be advanced beyond full liquids and very soft foods. She should follow-up with me and I will plan on repeat EGD to ensure improvement in 1 month. Cornelius Willard MD Pager: [facility] [address] [place] [address], [address] [place] [phone] Office:
--- NOTE | 2020-07-26 10:39 | PCM.DC ---
- Discharge Diagnoses Current Active Problems: Current Active and Chronic Problems (Last Reviewed 07/22/20 @ 19:[address] Sherlyn Hayes, DO) Hip fracture (Acute) CVA (cerebral vascular accident) (Chronic) You will use the following diet at home:: Other - mechanical soft Your food should be the consistency of: Mechanical soft (ground) Discharge Activity: May Not Drive - while taking narcotic pain medications. May shower in (days): 1 - Turn dressing away from water. Dressing must be intact to skin Weight Bearing Status: Weight bearing as tolerated - With walker Keep extremity elevated above heart level: Operative Extremity Additional Activity Instructions:: Wear elastic stockings for 2 weeks. DO NOT use alcohol with narcotic pain medication. DO NOT make important decisions while taking narcotic medication. If you have problems with taking your medication (rash, itching, nausea, etc.) call the office at once. Call your doctor if your incision/area has: Increased Pain/ Swelling, Increased Redness, Foul Smelling Discharge Call your doctor if you observe: Fever of 101 or Higher Remove Dressing in (days):: 4 - Okay to remove dressing on July 28, 2020 Allergies/Adverse Reactions: Allergies No Known Allergies Allergy (Verified 07/19/20 10:19) Medications to take at Discharge Atorvastatin Calcium 40 mg PO DAILY 12/26/18 Doxepin HCl 100 mg PO QHS 12/10/19 Paroxetine [Paxil] 20 mg PO DAILY 12/10/19 Bupropion HCl [Bupropion HCl Sr] 150 mg PO BID 05/20/20 Ergocalciferol [Vitamin D] 50,000 units PO QMONTH 05/20/20 Melatonin 10 mg PO QHS 05/20/20 cyclobenzaprine 10 mg tablet 10 mg PO DAILY tab 07/16/20 Famotidine [Pepcid] 40 mg PO DAILY 07/22/20 Nicotine [Nicoderm Cq] 7 mg TP DAILY 07/22/20 Acetaminophen 2 tab PO TID PRN #1 tab 07/26/20 Aspirin [Aspirin EC] 81 mg PO BID #0 07/26/20 Pantoprazole Sodium [Protonix] 20 mg PO BID #60 tab 07/26/20 The following prescriptions were given: Acetaminophen 2 tab PO TID PRN #1 tab PRN Reason: Pain Or Fever Pantoprazole Sodium [Protonix] 20 mg PO BID #60 tab Transmission Status: Pending to [id number] Primary Care Physician: Zachary Vargas Chi, MD [Primary Care Provider] - Test Results: Test results from this visit will be discussed in further detail at your follow-up appointment, if applicable. Please Follow Up With: Pelon Rayo MD When: f/u 2 weeks with xrays and incision check Please Follow Up With: Corneluis Willard MD When: 1 month Proposed Discharge Date: 07/26/20
--- NOTE | 2020-07-26 10:41 | DS.PCM_ITS ---
Discharge Date and Diagnosis - Problem List Patient Problems: Active and Suspected Problems (Last Reviewed 07/22/20 @ 19:[address] Sherlyn Hayes DO) Hip fracture (Acute) Date of Admission: 07/22/20 Date of Discharge: 07/26/20 - Primary Discharge Diagnosis Acute Problems: Active Problems (Last Reviewed 07/22/20 @ 19:[address] Sherlyn Hayes DO) left Hip fracture (Acute) esophagitis - Secondary Discharge Diagnosis Chronic Problems: Chronic Problems (Last Reviewed 07/22/20 @ 19:[address] 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 Electronically Signed: Yayo Bingham MD at 16:51 EDT Tel , Service support , Chest X-Ray 07/22/20 16:15 IMPRESSION: No active disease. Electronically Signed: Yayo Bingham MD at 16:48 EDT Tel , Service support , Hip/Pelvis X-Ray 07/23/20 16:00 IMPRESSION: Left side hip arthroplasty in progress. Electronically Signed: Sandy Tipton MD at 5:00 EDT Tel , Service support , Hip X-Ray 07/23/20 18:34 IMPRESSION: Status post left hip arthroplasty which appears to be in anatomic position and alignment with postoperative change. Electronically Signed: Sandy Tipton MD at 5:24 EDT Tel , Service support , Girma, orthopaedics Gen Sudheer surgery Operations: - - Left hip hemiarthroplasty Procedures: EGD - Findings: Pediatric Grade 3 (circumferential erosive or exudative lesions) esophagitis with no bleeding was found 26 to 34 cm from the incisors. Biopsies were taken with a cold forceps for histology. Localized minimal inflammation with hemorrhage characterized by adherent blood was found in the stomach. The examined duodenum was normal. A small hiatal hernia was present. Impression: - Pediatric Grade 3 erosive esophagitis. Biopsied. - Gastritis with hemorrhage. - Normal examined duodenum. - Small hiatal hernia. Summary of Care Provided: The patient is a 60 year old F presents with a fall. She developed a left hip fracture. Patient was taken to the OR on and underwent a left hip hemiarthroplasty by Dr. Rayo. Patient has been having issues regards to swallowing and recent been noted to have an esophageal mass on imaging previously. She was to have an EGD done as outpatient on the with Dr. Willard, he was consulted and performed the procedure on the . Patient was found to have esophagitis and stricture. He recommended twice daily PPI therapy for her and a very soft diet. Patient will need a follow-up EGD in about a month's time to see how that is resolving but to continue with the twice daily PPI in the meantime. Patient want to go to rehab but was declined by insurance and she was not interested in going to a group home facility and rather go home with home health care. While patient was here, patient was found to have morphine tablets on her person. This morphine was not prescribed to her while she was in the hospital. Patient would not be discharged with any narcotics and patient was told that prior to discharge. [] Patient Problems: Active and Suspected Problems (Last Reviewed 07/22/20 @ 19:[address] Sherlyn Hayes, DO) Hip fracture (Acute) - Physical Exam Vitals/I&O's: Vital Signs Temp Pulse Resp BP Pulse Ox 36.8 C 93 20 H 104/57 L 92 07/26/20 08:55 07/26/20 08:55 07/26/20 10:29 07/26/20 08:55 07/26/20 10:29 Oxygen Flow Rate (L/min) 2 Oxygen Delivery Method Room Air Weight: 50.8 kg Body Mass Index (BMI) 21.1 Finger Stick Blood Glucose 99 Intake and Output for Last 24 Hours 07/24/20 07/25/20 07/26/20 23:59 23:59 23:59 Intake Total 2700.00 / 2700.00 3110 / 3110 544 / 544 Output Total 950 / 950 1300 / 1300 400 / 400 Balance 1750.00 / 1750.00 1810 / 1810 144 / 144 General: Alert, No apparent distress HEENT: Atraumatic, Normocephalic Oral: Moist Mucosa, No Gingival or Mucosal Lesions/ Ulcerations Neck: No Nodes, Thyroid Normal Size and Texture Lungs: Clear to auscultation, Normal air movement, No rhonchi, No wheeze Musculoskeletal: Cachexia, Muscle Wasting Current Medications Acetaminophen (Tylenol) 650 mg PO Q6H PRN PRN PRN Reason: Pain Score 1-10/Temp > 100.7 F Last Admin: 07/24/20 15:26 Dose: 650 mg Documented by: Albuterol Sulfate (Ventolin Aerosols) 2.5 mg INHALATION Q2H PRN PRN PRN Reason: Shortness of Breath/Wheezing Atorvastatin Calcium (Lipitor) 40 mg PO QHS [facility] Last Admin: 07/25/20 21:40 Dose: 40 mg Documented by: Bupropion HCl (Wellbutrin Sr (150mg Tablets)) 150 mg PO BID [facility] Last Admin: 07/26/20 08:52 Dose: Not Given Documented by: Doxepin HCl (Doxepin Hcl) 100 mg PO QHS [facility] Last Admin: 07/25/20 21:40 Dose: 100 mg Documented by: Enoxaparin Sodium (Lovenox) 40 mg SC DAILY [facility] Last Admin: 07/26/20 08:52 Dose: Not Given Documented by: Enteral Nutritional Formula (Ensure Surgery) 237 ml PO TIDCM [facility] Last Admin: 07/26/20 10:32 Dose: Not Given Documented by: Famotidine (Pepcid) 40 mg PO DAILY [facility] Last Admin: 07/26/20 08:48 Dose: 40 mg Documented by: Folic Acid (Folic Acid) 1 mg PO DAILY@0800 [facility] Last Admin: 07/26/20 08:49 Dose: 1 mg Documented by: Sodium Chloride () 250 mls @ 15 mls/hr IV .[id number] PRN PRN Reason: Additional IVPB Infusion Last Infusion: 07/26/20 04:47 Dose: Infused Documented by: Nicotine (Nicoderm Cq (Pbkc)) 14 mg TRANSDERM. DAILY [facility] Last Admin: 07/26/20 10:30 Dose: Not Given Documented by: Nutritional Formula (Lactose Free) (Ensure Enlive) 120 ml PO 4X/DAY [facility] Last Admin: 07/26/20 08:48 Dose: 120 ml Documented by: Ondansetron HCl (Zofran) 4 mg IV Q8H PRN PRN PRN Reason: NAUSEA/VOMITING Last Admin: 07/22/20 23:33 Dose: 4 mg Documented by: Oxycodone HCl (Oxyir) 5 mg PO Q4H PRN PRN PRN Reason: Pain Score 4-5/10 Last Admin: 07/24/20 20:39 Dose: 5 mg Documented by: Pantoprazole Sodium (Protonix) 20 mg PO BID [facility] Last Admin: 07/26/20 08:54 Dose: 20 mg Documented by: Paroxetine HCl (Paxil) 20 mg PO DAILY [facility] Last Admin: 07/26/20 08:50 Dose: 20 mg Documented by: Polyethylene Glycol (Miralax) 17 gm PO DAILY [facility] Last Admin: 07/26/20 08:52 Dose: Not Given Documented by: Promethazine HCl (Phenergan) 12.5 mg IM Q6H PRN PRN; Protocol PRN Reason: NAUSEA/VOMITING Senna/Docusate Sodium (Senokot-S, Fidelina-Colace) 2 tablet PO BID [facility] Last Admin: 07/26/20 08:49 Dose: Not Given Documented by: Sodium Chloride () 10 - 40 ml IV UD PRN PRN Reason: SALINE FLUSH Last Admin: 07/24/20 04:17 Dose: 10 ml Documented by: Thiamine HCl (Vitamin B1) [facility] Last Admin: 07/26/20 08:48 Dose: 100 mg Documented by: Discharge Diet: - - mechanical soft. Discharge Activity: May Not Drive - while taking narcotic pain medications. May shower in (days): 1 - Turn dressing away from water. Dressing must be intact to skin Weight Bearing Status: Weight bearing as tolerated - With walker Keep extremity elevated above heart level: Operative Extremity Additional Activity Instructions:: Wear elastic stockings for 2 weeks. DO NOT use alcohol with narcotic pain medication. DO NOT make important decisions while taking narcotic medication. If you have problems with taking your medication (rash, itching, nausea, etc.) call the office at once. Call your doctor if your incision/area has: Increased Pain/ Swelling, Increased Redness, Foul Smelling Discharge Call your doctor if you observe: Fever of 101 or Higher Remove Dressing in (days):: 4 - Okay to remove dressing on July 28, 2020 Home Medications: Medications to take at Discharge Atorvastatin Calcium 40 mg PO DAILY 12/26/18 Doxepin HCl 100 mg PO QHS 12/10/19 Paroxetine [Paxil] 20 mg PO DAILY 12/10/19 Bupropion HCl [Bupropion HCl Sr] 150 mg PO BID 05/20/20 Ergocalciferol [Vitamin D] 50,000 units PO QMONTH 05/20/20 Melatonin 10 mg PO QHS 05/20/20 cyclobenzaprine 10 mg tablet 10 mg PO DAILY tab 07/16/20 Famotidine [Pepcid] 40 mg PO DAILY 07/22/20 Nicotine [Nicoderm Cq] 7 mg TP DAILY 07/22/20 Acetaminophen 2 tab PO TID PRN #1 tab 07/26/20 Aspirin [Aspirin EC] 81 mg PO BID #0 07/26/20 Pantoprazole Sodium [Protonix] 20 mg PO BID #60 tab 07/26/20 Following Prescriptions Were Given to Patient: Acetaminophen 2 tab PO TID PRN #1 tab PRN Reason: Pain Or Fever Pantoprazole Sodium [Protonix] 20 mg PO BID #60 tab Transmission Status: Pending to [id number] Primary Care Physician: Zachary Vargas Chi, MD [Primary Care Provider] - Please Follow Up With: Pelon Rayo MD When: f/u 2 weeks with xrays and incision check Please Follow Up With: Cornelius Willard MD When: 1 month Disposition: Home with Home Health Minutes spent on discharge:: 32 Patient Condition:: Fair Medical Necessity - Tobacco Use Smoking Status: Current every day smoker Tobacco Use: Cigarettes Meaningful Use Info Meaningful Use Diagnoses (Choose all that apply): None applicable Inpatient E&M: 89388 Disch Hosp
--- NOTE | 2020-07-26 11:00 | CASEMGMT ---
Addendum entered by Faustina Romero 07/26/20 13:43: [facility] will see pt on Wednesday. SW updated pt on this. Pt denied any additional needs or concerns at this time. Pt denied additional DME needs at this time. Original Note: Social Work Note SW in to speak with pt. Pt still prefers to discharge home, agreeable to HHC. SW also provided pt with inhalation therapy aides teacher lists and community resources ([facility]). Pt agreeable to [facility] Referral. SW also spoke with pt regarding M[facility] and pt denied referral. SW provided pt with list of [facility] that accept pt's insurance. Pt's [facility] choice is [facility] and second choice is [facility]. SW updated RN CM. SW faxed referral to [facility]. Plan: Home with C Faustina Romero COMMERCIAL PRODUCER, PRESCHOOL ASSISTANT
--- NOTE | 2020-07-26 11:30 | CASEMGMT ---
JOE COLES updated by MOOSE Romero that patient would like [facility] at discharge and first choice is [facility]. RN SANKET called [facility] and they are unable to accept patient. Per MOOSE Romero second choice is [facility]. RN CM called and placed referral to [facility] and they are able to accept. RN CM faxed discharge instructions to [facility]. RN SANKET updated MOOSE Romero regarding acceptance by [facility]. MOOSE updated the patient.
--- NOTE | 2020-07-26 15:44 | NURSING ---
[id number] pt is discharging home with [facility]. Pt states her ride will be here shortly and she wants to wait at the main entrance for her ride. Offered to take her down in a wheelchair multiple times but pt continued to refuse. Morphine pill in small plastic bag returned prior to discharge along with cs associate and cigarettes. Walked with pt to elevators.
--- NOTE | 2020-07-29 12:18 | CASEMGMT ---
[facility] PHONE CALL DC DATE: 07.29.20 DC DISPOSITION: Home with [facility] DIAGNOSIS: ORIF of left hip fracture LACE/STRATA: 15/ F/U APPTS MADE PRIOR TO DC: yes PRESCRIPTIONS ACQUIRED BY PT: yes Attempted call to patient's phone. The voicemail was full. Call to [facility] and start of care is set up for today. Trent GEORGE RN ACM
== END 2020-07-26 13:57 | disposition home or self-care (01) | DRG 301 ==
LOC: ED 16:35 → MS3 21:50
PROVIDERS: Hospitalist; Nurse Practitioner Family; Specialist; Surgery; Admitting Provider Internal Medicine; Emergency Provider Emergency Medicine; PCP Family Medicine Geriatric Medicine
PROC: 0SRS0J9 Replacement of Left Hip Joint, Femoral Surface with Synthetic Substitute, Cemented, Open Approach (ICD-10-PCS; CPT 27125; principal; 2020-07-23 16:10)
PROC: 0DJ08ZZ Inspection of Upper Intestinal Tract, Via Natural or Artificial Opening Endoscopic (ICD-10-PCS; CPT 43235; principal; 2020-07-25 10:55)
DX: S72.032A Displaced midcervical fracture of left femur, initial encounter for closed fracture (principal); K22.10 Ulcer of esophagus without bleeding; I69.354 Hemiplegia and hemiparesis following cerebral infarction affecting left non-dominant side; K29.71 Gastritis, unspecified, with bleeding; E44.0 Moderate protein-calorie malnutrition; I69.322 Dysarthria following cerebral infarction; I69.391 Dysphagia following cerebral infarction; R13.10 Dysphagia, unspecified; I10 Essential (primary) hypertension; E78.5 Hyperlipidemia, unspecified; M62.422 Contracture of muscle, left upper arm; W18.30XA Fall on same level, unspecified, initial encounter; Y93.89 Activity, other specified; Y92.008 Other place in unspecified non-institutional (private) residence as the place of occurrence of the external cause; Y99.8 Other external cause status; Z11.59 Encounter for screening for other viral diseases; R29.6 Repeated falls; J44.9 Chronic obstructive pulmonary disease, unspecified; Z79.899 Other long term (current) drug therapy; F17.210 Nicotine dependence, cigarettes, uncomplicated; E03.9 Hypothyroidism, unspecified; F10.10 Alcohol abuse, uncomplicated; F12.90 Cannabis use, unspecified, uncomplicated; F32.9 Major depressive disorder, single episode, unspecified; F41.9 Anxiety disorder, unspecified; E55.9 Vitamin D deficiency, unspecified; D75.1 Secondary polycythemia; K44.9 Diaphragmatic hernia without obstruction or gangrene; I65.21 Occlusion and stenosis of right carotid artery; E11.9 Type 2 diabetes mellitus without complications; F11.10 Opioid abuse, uncomplicated; Z68.21 Body mass index [BMI] 21.0-21.9, adult
CPT/HCPCS: 36415; 71045; 73501; 73502; 76000; 80048; 80053; 80307; 80320; 83735; 84439; 84443; 84484; 85014; 85018; 85025; 85027; 85610; 85730; 86850; 86900; 86901; 87635; 88305; 88312; 92507; 92526; 92610; 93005; 97116; 97162; 97166; 97530; 97802; 99251; 99285; 99406; C1776; C9803; J7030; J7050; J7120; A4216; G0463; G0480; J2405; U0003

== ENCOUNTER 2020-11-13 11:55 | Emergency (ER) | payer MEDICAID, SELFPAY ==
[2020-07-23 15:54] VITALS: BMI 21.1
[2020-11-13 11:56] VITALS: BP 106/59; PULSE 101; RESP 18; TEMP 36.3; O2SAT 96; BMI 24.4
--- NOTE | 2020-11-13 12:55 | RAD_ITS ---
STUDY: X-RAY - LEFT HUMERUS REASON FOR EXAM: Female, 60 years old. FELL LAST WEDNESDAY. HX STROKE. TECHNIQUE: 2 view(s) of the humerus. COMPARISON: None. FINDINGS: Acute left mildly displaced transverse fracture through the proximal humerus metadiaphyseal region. No dislocation. No bone destruction. Mild osteopenia. Mild soft tissue swelling. RAD/Humerus min 2 Views IMPRESSION: Acute mildly displaced transverse left proximal humerus fracture Electronically Signed: Charles Gallo DO at 13:09 EST Tel , Service support ,
--- NOTE | 2020-11-13 13:28 | ED.VISSUMM ---
- ER Visit Summary Date of Service: 11/13/20 Chief Complaint: [Injury to left arm] History of Present Illness: The patient is a 60 F [resents to the emergency department with complaint of an injury to her left arm that occurred 6 days ago. Patient states that she tripped over her own foot and fell onto a parking block with her left arm. Patient states that her arm is normally flexed due to prior stroke. Patient states that today she can take the pain anymore. Patient noticed bruising to the upper arm. She denied striking her head or loss of consciousness. She denies any neck pain. She denies chest pain or abdominal pain.] Physical Examination: [HEENT-PERRLA, EOMI. Cranial nerves II through XII grossly intact. TMs clear. Mucous membranes moist. No adenopathy. No external evidence of trauma to her head. No C-spine tenderness on palpation. She has normal active range of motion is painless. Cardiovascular-regular rate and rhythm without murmur or ectopy Lungs-clear to auscultation, chest wall stable without crepitus or subcu emphysema Abdomen-normoactive bowel sounds, soft, nontender, no rebound or rigidity, no peritoneal signs. Extremities-intact ?4, normal range of motion, normal pulses. Left upper extremity-patient does have diffuse ecchymosis and bruising over the entire left upper extremity/humerus. Patient has tenderness to the mid humerus and proximal humerus. No real tenderness at the elbow or forearm. Neurovascular intact distally.] Test Results: [X-rays of the left humerus obtained showed a proximal humerus fracture minimally displaced.] Emergency Department Course and Treatment: [Patient came with her own sling and that was reapplied.] Treatment Plan: [Patient will be given a prescription for [place] for pain and referral to orthopedics for follow-up.] Disposition: [Discharged home in stable condition] Impression: [Left proximal humerus fracture Mechanical fall] This note was generated with [employer] dictation software. It may contain incorrect words, spelling, and punctuation that were not noted in review of the chart prior to signing ED Disposition - Plan for ED Patient: Referrals: Zachary Vargas Chi, MD [Primary Care Provider] -
--- NOTE | 2020-11-13 13:32 | ED.DEP ---
ED Disposition - Plan for ED Patient: Instructions: ED Fracture, Upper Extremity Prescriptions: Hydrocodone Bitart/Apap 5-325 [[place] 5MG-325MG] 1 tab PO Q4H PRN PRN 2 Days #20 tab PRN Reason: Pain Prescription Printed Referrals: Zachary Vargas Chi, MD [Primary Care Provider] - Pelon Rayo MD [STAFF PHYSICIAN] - 3-5 Days
== END 2020-11-13 13:55 | disposition home or self-care (01) ==
LOC: ED 13:11
PROVIDERS: Emergency Provider Emergency Medicine; PCP Family Medicine Geriatric Medicine
DX: S42.292A Other displaced fracture of upper end of left humerus, initial encounter for closed fracture (principal); W18.09XA Striking against other object with subsequent fall, initial encounter; Y93.01 Activity, walking, marching and hiking; Y92.481 Parking lot as the place of occurrence of the external cause; Y99.8 Other external cause status
CPT/HCPCS: 73060; 99282

== ENCOUNTER → 2020-11-21 11:43 | Outpatient (CLI) | payer MEDICAID, SELFPAY ==
[2020-11-13 11:56] VITALS: BMI 24.4
[2020-11-21 12:34] LABS: Absolute Lymphocyte Count 2.83 X10^3/uL (0.83-4.51); Absolute Neutrophil Count 5.7 X10^3/uL (2.0-7.7); Basophil# 0.07 X10^3/uL; Basophil% 0.7 % (0-1); Eosinophil# 0.06 X10^3/uL; Eosinophils% 0.6 % (0-5); Hematocrit 37.5 % (37-47); Hemoglobin 11.6 g/dL (12.0-15.0); Lymphocyte # 2.83 X10^3/ul (4.0); Mean Corp Hgb Conc 30.9 g/dL (32-36); Mean Corpuscular Hgb 28.1 pg (27.0-32.0); Mean Corpuscular Volume 90.8 fL (81-99); Monocyte% 8.5 % (0-10); NRBC Flagged by Analyzer 0 % (0-5); Neutrophil # 5.65 X10^3/uL (2.7-7.7); Platelet Count 621 K/mm3 (150-450); RBC Distribution Width CV 17.8 % (11.6-14.6); RBC Distribution Width SD 59.6 fl (35.1-43.9); Red Blood Count 4.13 M/mm3 (4.2-5.4); White Blood Count 9.4 K/mm3 (4.4-11.0)
[2020-11-21 12:47] LABS: Vitamin D,25 Hydroxy 58.4 ng/mL
[2020-11-21 13:02] LABS: ALB/GLOB Ratio 0.8 RATIO (0.9-2.4); AST(SGOT) 14 U/L (15-37); Alanine Aminotransfer ALT/SGPT 23 U/L (13-56); Albumin, Serum 3.4 g/dL (3.2-5.0); Alkaline Phosphatase 230 U/L (45-117); Anion Gap 6 (5-15); BUN 7 mg/dL (7-18); BUN/Creat Ratio 7.5 RATIO (10-20); Calcium,Total 8.6 mg/dL (8.5-10.1); Chloride 104 mmol/L (98-107); Creatinine, Serum 0.94 mg/dL (0.55-1.02); EST Glomerular Filtration Rate 65 mL/min (>60); Est Glom Filt Rate - Afr Amer 78 mL/min (>60); Globulin 4.2 g/dL (2.2-4.2); Glucose 83 mg/dL (74-106); Potassium 3.8 mmol/L (3.5-5.1); Protein, Total 7.6 g/dL (6.4-8.2); Sodium Level 137 mmol/L (136-145); Thyroid Stim Hormone (TSH) 2.17 uIU/mL (0.358-3.74)
== END ==
PROVIDERS: PCP Family Medicine Geriatric Medicine; Visit Provider Family Medicine Geriatric Medicine
DX: E55.9 Vitamin D deficiency, unspecified (principal); R53.83 Other fatigue
CPT/HCPCS: 36415; 80053; 82306; 84443; 85025

== ENCOUNTER → 2021-08-25 16:16 | Outpatient (CLI) | payer MEDICAID, SELFPAY ==
[2021-08-25 17:50] LABS: Absolute Lymphocyte Count 3.01 X10^3/uL (0.83-4.51); Basophil# 0.08 X10^3/uL; Basophil% 0.8 % (0-1); Eosinophil# 0.22 X10^3/uL; Eosinophils% 2.3 % (0-5); Hematocrit 34.1 % (37-47); Hemoglobin 10.1 g/dL (12.0-15.0); Lymphocyte # 3.01 X10^3/ul (0.83-4.51); Lymphocyte % 31.8 % (19-41); Mean Corp Hgb Conc 29.6 g/dL (32-36); Mean Corpuscular Volume 84.4 fL (81-99); Mean Platelet Vol. 8.9 fl (6.2-12.0); Monocyte% 12.7 % (0-10); NRBC Flagged by Analyzer 0 % (0-5); Neutrophil # 4.95 X10^3/uL (2.7-7.7); Neutrophil % 52.2 % (47-70); Platelet Count 646 K/mm3 (150-450); RBC Distribution Width CV 18.9 % (11.6-14.6); RBC Distribution Width SD 58.7 fl (35.1-43.9); Red Blood Count 4.04 M/mm3 (4.2-5.4); White Blood Count 9.5 K/mm3 (4.4-11.0)
[2021-08-25 18:06] LABS: ALB/GLOB Ratio 0.6 RATIO (0.9-2.4); AST(SGOT) 20 U/L (15-37); Alanine Aminotransfer ALT/SGPT 16 U/L (13-56); Albumin, Serum 2.7 g/dL (3.2-5.0); Alkaline Phosphatase 145 U/L (45-117); Anion Gap 8 (5-15); BUN 6 mg/dL (7-18); BUN/Creat Ratio 6.8 RATIO (10-20); Calcium,Total 8.4 mg/dL (8.5-10.1); Chloride 106 mmol/L (98-107); Creatinine, Serum 0.88 mg/dL (0.55-1.02); EST Glomerular Filtration Rate 69 mL/min (>60); Est Glom Filt Rate - Afr Amer 84 mL/min (>60); Globulin 4.6 g/dL (2.2-4.2); Glucose 76 mg/dL (74-106); Potassium 3.4 mmol/L (3.5-5.1); Protein, Total 7.3 g/dL (6.4-8.2); Sodium Level 140 mmol/L (136-145); Thyroid Stim Hormone (TSH) 1.66 uIU/mL (0.358-3.74)
[2021-08-25 18:40] LABS: Vitamin D,25 Hydroxy 62.6 ng/mL
== END ==
PROVIDERS: PCP Family Medicine Geriatric Medicine; Visit Provider Family Medicine Geriatric Medicine
DX: E55.9 Vitamin D deficiency, unspecified (principal); R53.83 Other fatigue; N39.0 Urinary tract infection, site not specified
CPT/HCPCS: 36415; 80053; 82306; 84443; 85025; 87086; 87088; 87186

== ENCOUNTER → 2021-08-28 15:13 | Outpatient (CLI) | payer MEDICAID, SELFPAY ==
--- NOTE | 2021-08-28 15:16 | RAD_ITS ---
STUDY: X-RAY - ABDOMEN/PELVIS REASON FOR EXAM: Female, 61 years old. ABD PAIN TECHNIQUE: Portable, upright and supine, AP abdomen radiograph COMPARISON: 07/22/2020 pelvis radiograph FINDINGS: Normal visualized lung bases. There is an unremarkable bowel gas pattern. There is no demonstrated free abdominal air. The visualized liver, spleen and kidneys are grossly normal in size and morphology. Large hyperattenuating structures in the pelvis may represent inspissated rectal contents versus less likely calcified uterine fibroids. Left hip hemiarthroplasty noted. RAD/Abd Inc Decub and/or Erect IMPRESSION: Suspect inspissated stool in the colon, suggesting constipation. Electronically Signed: Renny Faulkner MD at 22:56 EDT Tel , Service support ,
== END ==
PROVIDERS: PCP Family Medicine Geriatric Medicine; Referring Provider Family Medicine Geriatric Medicine; Visit Provider Family Medicine Geriatric Medicine
DX: R10.9 Unspecified abdominal pain (principal)
CPT/HCPCS: 74019

== ENCOUNTER 2021-11-27 14:54 | Outpatient (CLI) | payer MEDICAID, SELFPAY ==
[2021-11-27 16:58] LABS: Absolute Lymphocyte Count 2.34 X10^3/uL (0.83-4.51); Absolute Neutrophil Count 2.3 X10^3/uL (2.0-7.7); Basophil# 0.05 X10^3/uL; Basophil% 0.9 % (0-1); Eosinophil# 0.19 X10^3/uL; Eosinophils% 3.5 % (0-5); Hematocrit 31.2 % (37-47); Hemoglobin 9.2 g/dL (12.0-15.0); Lymphocyte # 2.34 X10^3/ul (0.83-4.51); Lymphocyte % 42.5 % (19-41); Mean Corp Hgb Conc 29.5 g/dL (32-36); Mean Corpuscular Volume 81.5 fL (81-99); Mean Platelet Vol. 8.8 fl (6.2-12.0); Monocyte# 0.64 X10^3/uL; Monocyte% 11.6 % (0-10); NRBC Flagged by Analyzer 0 % (0-5); Neutrophil # 2.27 X10^3/uL (2.7-7.7); Neutrophil % 41.3 % (47-70); POSITIVE MORPHOLOGY YES; Platelet Count 553 K/mm3 (150-450); RBC Distribution Width CV 22.5 % (11.6-14.6); RBC Distribution Width SD 63.3 fl (35.1-43.9); Red Blood Count 3.83 M/mm3 (4.2-5.4); White Blood Count 5.5 K/mm3 (4.4-11.0)
[2021-11-27 17:13] LABS: Differential Indicated SCAN CRITERIA MET
[2021-11-27 17:25] LABS: Vitamin D,25 Hydroxy 74.6 ng/mL
[2021-11-27 17:31] LABS: ALB/GLOB Ratio 0.6 RATIO (0.9-2.4); AST(SGOT) 21 U/L (15-37); Alanine Aminotransfer ALT/SGPT 24 U/L (13-56); Albumin, Serum 2.5 g/dL (3.2-5.0); Alkaline Phosphatase 149 U/L (45-117); Anion Gap 5 (5-15); BUN 5 mg/dL (7-18); BUN/Creat Ratio 6.9 RATIO (10-20); Calcium,Total 7.9 mg/dL (8.5-10.1); Chloride 108 mmol/L (98-107); Creatinine, Serum 0.73 mg/dL (0.55-1.02); EST Glomerular Filtration Rate 87 mL/min (>60); Est Glom Filt Rate - Afr Amer 105 mL/min (>60); Globulin 4.3 g/dL (2.2-4.2); Glucose 81 mg/dL (74-106); Protein, Total 6.8 g/dL (6.4-8.2); Sodium Level 141 mmol/L (136-145); Thyroid Stim Hormone (TSH) 3.59 uIU/mL (0.358-3.74)
[2021-11-27 17:35] LABS: Differential Comment SCANNED
== END 2021-11-27 23:59 | disposition short-term general hospital (02) ==
PROVIDERS: PCP Family Medicine Geriatric Medicine; Visit Provider Family Medicine Geriatric Medicine
DX: R53.83 Other fatigue (principal); E55.9 Vitamin D deficiency, unspecified; N39.0 Urinary tract infection, site not specified
CPT/HCPCS: 36415; 80053; 82306; 84443; 85025; 87086; 87088

== ENCOUNTER → 2022-03-02 | Outpatient (CLI) | payer MEDICAID, SELFPAY ==
[2022-03-02 17:16] LABS: Absolute Lymphocyte Count 2.93 X10^3/uL (0.83-4.51); Absolute Neutrophil Count 4.5 X10^3/uL (2.0-7.7); Basophil# 0.12 X10^3/uL; Basophil% 1.4 % (0-1); Eosinophil# 0.09 X10^3/uL; Hematocrit 34.8 % (37-47); Hemoglobin 10.3 g/dL (12.0-15.0); Lymphocyte # 2.93 X10^3/ul (0.83-4.51); Lymphocyte % 34.1 % (19-41); Mean Corp Hgb Conc 29.6 g/dL (32-36); Mean Corpuscular Volume 77.7 fL (81-99); Mean Platelet Vol. 8.9 fl (6.2-12.0); Monocyte# 0.91 X10^3/uL; Monocyte% 10.6 % (0-10); NRBC Flagged by Analyzer 0 % (0-5); Neutrophil # 4.52 X10^3/uL (2.7-7.7); Neutrophil % 52.8 % (47-70); RBC Distribution Width CV 18.2 % (11.6-14.6); Red Blood Count 4.48 M/mm3 (4.2-5.4); White Blood Count 8.6 K/mm3 (4.4-11.0)
[2022-03-02 17:26] LABS: Vitamin D,25 Hydroxy 61.6 ng/mL
[2022-03-02 17:30] LABS: Platelet Count 833 K/mm3 (150-450)
[2022-03-02 17:33] LABS: ALB/GLOB Ratio 0.7 RATIO (0.9-2.4); AST(SGOT) 25 U/L (15-37); Alanine Aminotransfer ALT/SGPT 27 U/L (13-56); Albumin, Serum 3.1 g/dL (3.2-5.0); Alkaline Phosphatase 169 U/L (45-117); Anion Gap 8 (5-15); BUN 9 mg/dL (7-18); BUN/Creat Ratio 9.4 RATIO (10-20); Calcium,Total 8.6 mg/dL (8.5-10.1); Chloride 105 mmol/L (98-107); Creatinine, Serum 0.96 mg/dL (0.55-1.02); EST Glomerular Filtration Rate 63 mL/min (>60); Est Glom Filt Rate - Afr Amer 76 mL/min (>60); Globulin 4.7 g/dL (2.2-4.2); Glucose 85 mg/dL (74-106); Potassium 3.6 mmol/L (3.5-5.1); Protein, Total 7.8 g/dL (6.4-8.2); Sodium Level 139 mmol/L (136-145); Thyroid Stim Hormone (TSH) 1.83 uIU/mL (0.358-3.74)
[2022-03-02 17:55] LABS: Differential Indicated SCAN CRITERIA MET
[2022-03-02 17:56] LABS: Platelet Estimate MKD INC (ADEQ)
[2022-03-03 14:25] LABS: Pathologist Review Reviewed
== END | disposition home or self-care (01) ==
LOC: POLAB3 13:46
PROVIDERS: PCP Family Medicine Geriatric Medicine; Visit Provider Family Medicine Geriatric Medicine
DX: E55.9 Vitamin D deficiency, unspecified (principal); R53.83 Other fatigue; E87.6 Hypokalemia
CPT/HCPCS: 36415; 80053; 82306; 84443; 85025

== ENCOUNTER → 2022-04-08 | Outpatient (CLI) | payer MEDICAID, SELFPAY ==
--- NOTE | 2022-04-08 13:33 | BI_ITS ---
MAMMOGRAPHY - BILATERAL SCREENING REASON FOR EXAM: Female, 62 years old. Routine annual screening examination. PERTINENT HISTORY: Non-contributory. TECHNIQUE: Digital bilateral breast jacqueline (3D mammographic acquisition) in the CC and MLO projections. 2-D mediolateral oblique (MLO) and craniocaudad (CC) views of both breasts were obtained. CAD: Full Field Digital Mammography with Computer Added Detection was performed. COMPARISON: Comparison is made with prior study dated 09/19/2019 and 06/04/2017. FINDINGS: Breast Composition: The breasts are almost entirely fatty. There are no dominant masses or suspicious calcifications. No other significant abnormalities are identified. There has been no significant change since the prior study. BI/SCRN MAMM (CAD)W/JACQUELINE BILAT IMPRESSION: Stable bilateral screening mammogram. Yearly follow-up mammogram recommended. (A) ASSESSMENT CATEGORY: BIRADS Category 1: Negative. A letter regarding these results will be sent to the patient by the facility within 30 days. Approximately 10% of breast cancers are not detected by mammography. A normal mammogram should not delay biopsy of a clinically suspicious abnormality. [id number] Electronically Signed: Damon Hayes MD at 15:23 EDT ,
== END | disposition home or self-care (01) ==
LOC: OPBI 13:32
PROVIDERS: PCP Family Medicine Geriatric Medicine; Visit Provider Internal Medicine Hematology & Oncology
DX: Z12.31 Encounter for screening mammogram for malignant neoplasm of breast (principal)
CPT/HCPCS: 77063; 77067

== ENCOUNTER → 2022-04-14 | Outpatient (CLI) | payer MEDICAID, SELFPAY ==
--- NOTE | 2022-04-14 14:17 | CT_ITS ---
STUDY: LOW DOSE CT LUNG CANCER SCREENING REASON FOR EXAM: Female, 62 years old. Lung cancer screening -- and gt;30 pk yr hx;current smoker;asymptomatic, -- 50 year smoker x 1/2 ppd, asthma, cva -- unable to raise left arm above head due to cva RADIATION DOSAGE (If Supplied By Facility): CTDIvol = ( 1.59 ) mGy, DLP = ( 51.02 ) mGycm TECHNIQUE: No contrast was administered. Low dose technique was utilized (average mAS-38 and kVp 120). 1.25 mm axial source images with a slice interval of 1.25-mm were reconstructed in lung windows. 2.5 mm axial source images with a slice interval of 2.5-mm were reconstructed in lung windows. 5.0 mm axial source images with a slice interval of 5.0-mm were reconstructed in soft tissue windows. COMPARISON: Comparison is made with prior study dated 05/20/2020. NODULES: 2 mm noncalcified nodule in the peripheral lateral aspect of the right lower lobe as seen on axial image #144. Mild scarring at the lung bases. Emphysema: Hyperinflation. Diffuse emphysematous changes more prominent in the upper lobes with centrilobular emphysema. Endobronchial lesion: None Aorta: Calcific plaques. CORONARY ARTERIES: Coronary artery calcification is seen. Heart: Unremarkable Pulmonary artery: Unremarkable Mediastinal nodes: Unremarkable Other chest and abdominal findings: CT/Low Dose CT Lung Screening IMPRESSION: Lung-RADS category 2 - Continue annual screening with LDCT in 12 months. IMPORTANT NOTES FOR USE: ACR Lung-RADS Version 1.1 Assessment Categories Release Date: 2018 Category: Coded 0-4 bases on nodule(s) with highest degree of suspicion. Negative screen is defined as categories 1 and 2; a positive screen is defined as categories 3 and 4. Category 3 and 4A nodules that are unchanged on interval CT should be coded as category 2, and individuals returned to screening in 12 months. Category 4X: Category 3 or 4 nodules with additional imaging findings that increase the suspicion of lung cancer, such as spiculation, GGN that doubles in size in 1 year, enlarged lymph notes, etc. Category Modifiers: S (significant finding unrelated to lung cancer) Electronically Signed: Damon Hayes MD at 14:39 EDT ,
== END | disposition home or self-care (01) ==
LOC: CT 14:15
PROVIDERS: PCP Family Medicine Geriatric Medicine; Visit Provider Nurse Practitioner Family
DX: Z87.891 Personal history of nicotine dependence (principal); Z12.2 Encounter for screening for malignant neoplasm of respiratory organs
CPT/HCPCS: 71271

== ENCOUNTER 2022-05-25 22:04 | Emergency (ER) | payer MEDICAID, SELFPAY ==
[2022-05-25 22:06] VITALS: BP 129/91; PULSE 96; RESP 15; TEMP 36.1; O2SAT 95; BMI 23.2
--- NOTE | 2022-05-25 22:30 | RAD_ITS ---
EXAM: XR RIGHT SHOULDER COMPLETE, 2 OR MORE VIEWS CLINICAL INDICATION: Trauma TECHNIQUE: Two or more views of the right shoulder. This report was created using [employer] report generation technology. COMPARISON: None. FINDINGS: BONES/JOINTS: Unremarkable. No acute fracture. No subluxation. Normal alignment. Preservation of the joint space. No sclerotic or destructive changes observed. SOFT TISSUES: Unremarkable. No soft tissue swelling or gas. No radiopaque foreign body. RAD/Shoulder min 2 Views IMPRESSION: Negative right shoulder x-rays. Electronically Signed: Dequan Sanchez MD at 23:24 EDT ,
--- NOTE | 2022-05-25 22:30 | CT_ITS ---
INDICATION: Tripped and fell, laceration above left eye. History of CVA, takes aspirin. EXAMINATION: CT Head or Brain W/O Contrast Injection TECHNIQUE: Multiple axial images were obtained of the head without intravenous contrast. A radiation dose optimization technique was used for this scan. IV Contrast dosage and agent: None. COMPARISON: Head CT from 05/20/2020 FINDINGS: BRAIN PARENCHYMA: No intra- or extra-axial hemorrhage. Chronic right frontal parietal encephalomalacia compatible with remote right MCA infarct. No evidence of acute major territorial infarct. No intracranial mass or mass effect. Mild chronic deep cerebral white matter lucencies are present. Chronic cerebral involutional changes. CSF SPACES: Prominent cerebral sulci and extraaxial spaces secondary to involutional changes. No hydrocephalus. Stable mild ex vacuo dilatation right lateral ventricle secondary to encephalomalacia. Basal cisterns are patent. CALVARIUM, SKULL BASE, PARANASAL SINUSES AND MASTOID AIR CELLS: Left supraorbital scalp swelling. No acute calvarial fracture. Chronic right zygomatic arch fracture. No acute findings within paranasal sinuses. Mastoid air cells are well-pneumatized. ORBITS: No acute findings, as visualized. CT/Brain/Head without Contrast IMPRESSION: Left supraorbital scalp injury with no calvarial fracture or acute intracranial abnormality. Stable brain atrophy with chronic large and small vessel ischemic changes. Electronically Signed: Cam Saleh MD at 23:20 EDT ,
--- NOTE | 2022-05-25 22:30 | EKG12_ITS ---
Test Reason : fall Blood Pressure : / mmHG Vent. Rate : 093 BPM Atrial Rate : 093 BPM P-R Int : 126 ms QRS Dur : 080 ms QT Int : 386 ms P-R-T Axes : 052 -35 072 degrees QTc Int : 479 ms Normal sinus rhythm Left axis deviation Low voltage QRS POOR R WAVE PROGRESSION Abnormal ECG Confirmed by PENNY BARAJAS, ANGELA ([id number]), fan mail editor HITESH NEIL ([id number]) on 05/26/2022 10:39:04 AM Referred By: Confirmed By:ANGELA FRANCIS MD
--- NOTE | 2022-05-25 22:31 | EDS_ITS ---
HPI HPI - Fall History of Present Illness Chief Complaint: Fall Narrative Narrative: History is somewhat difficult. Patient has very poor speech due to prior stroke. However, she is good at answering yes and no very clearly and very consistently. She evidently tripped. She fell. This is evidently a not uncommon occurrence. Her stroke affected her left side with her left arm more affected but it did affect her leg. She fell down. She has soreness in the right shoulder area. She states she does not really have a headache. She did not have and does not have chest pain. No trouble breathing. She was not syncopal. She did not pass out at any time. She states she feels pretty much the same except her right shoulder. It sounds like she is not on blood thinners and I do not see them on her med list. [facility] Medical History Anemia Anxiety and depression Arthritis Asthma COPD (chronic obstructive pulmonary disease) Difficulty swallowing Emphysema lung Encounter for screening for malignant neoplasm of lung in current smoker with 30 pack year history or greater Gammopathy GERD (gastroesophageal reflux disease) History of back problems Hyperlipidemia Hypothyroidism Iron deficiency anemia due to chronic blood loss Left hemiplegia Nicotine abuse Osteoporosis Polycythemia vera Thrombocytosis Tobacco use disorder, continuous Home Medications atorvastatin 40 mg tablet 40 mg PO DAILY cholesterol 12/26/18 [History Last Taken 07/21/20] doxepin 100 mg capsule 100 mg PO QHS depression 12/10/19 [History Last Taken 07/21/20] paroxetine HCl 20 mg tablet 20 mg PO DAILY depression 12/10/19 [History Last Taken 07/21/20] bupropion HCl (smoking deter) 150 mg tablet,12 hr sustained-release(smoking deterrent) 150 mg PO BID depression 05/20/20 [History Last Taken 07/22/20] ergocalciferol (vitamin D2) 1,250 mcg (50,000 unit) capsule 50,000 units PO QMONTH supplement 05/20/20 [History Last Taken 07/09/20] melatonin 10 mg tablet,extended release,multiphase 10 mg PO QHS sleep 05/20/20 [History Last Taken 07/21/20] cyclobenzaprine 10 mg tablet 10 mg PO DAILY muscle spasm 07/16/20 [History Last Taken 07/21/20] famotidine 40 mg tablet 40 mg PO DAILY gerd 07/22/20 [History Last Taken Unknown] nicotine 7 mg/24 hr daily transdermal patch 7 mg TP DAILY smoking 07/22/20 [History Last Taken Unknown] acetaminophen 500 mg tablet 2 tab PO TID PRN Pain Or Fever #1 TAB 07/26/20 [Rx Last Taken Unknown] aspirin 81 mg tablet,delayed release 81 mg PO BID health maintenance ##0 07/26/20 [Rx Last Taken 07/18/20] pantoprazole 20 mg tablet,delayed release 20 mg PO BID #60 tabs 07/26/20 [Rx Last Taken Unknown] potassium chloride 20 mEq oral packet (Klor-Con) 20 meq PO DAILY 03/06/22 [History Last Taken Unknown] Allergy/AdvReac Type Severity Reaction Status Date / Time No Known Allergies Allergy Verified 05/25/22 22:08 Family History Mother Diabetes Cancer Surgical History History of right knee surgery right ankle surgery Social History Smoking Status: Current every day smoker tobacco type: cigarettes alcohol intake: never substance use type: does not use EXAM Physical Exam Const Vital Signs: 05/25/22 22:06 05/25/22 22:11 Temperature 97 F L Temperature Source Temporal Pulse Rate 96 Respiratory Rate 15 Respiratory Effort Normal Non-Labored Respiratory Depth Normal Respiratory Pattern Normal Blood Pressure 129/91 H Blood Pressure Mean 103 Pulse Ox 95 Oxygen Delivery Method Room Air Room Air Positive well nourished and well developed General Appearance ED: well developed and NAD HEENT HEENT Narrative: Patient does have a 1 and half centimeter skin abrasion contusion and slight laceration lateral to her left eye. No active bleeding. It does not really open up significantly. Next to the edges of the laceration she has a lot of very contused and abraded tissue. Eyes EOMs intact bilaterally Neck full ROM and no lymphadenopathy Neck Narrative: No tenderness whatsoever. Patient continually moves in bed all portions of her body other than her left upper extremity. No sign of pain. General: Negative for tenderness Chest Wall inspection of chest normal and palpation of chest normal Chest Narrative: No pain with AP or lateral compression. Resp normal respiratory effort Auscultation: Negative for wheezes or diminished lung sounds Cardio regular rate and regular rhythm GI non-tender and non-distended Back/Spine no CVA tenderness Back/Spine Narrative: Patient leaning forward about difficulty. No tenderness over the cervical thoracic or lumbar spine. Extremity Extremity Narrative: There is some small contusions on her forearm mostly the right. Left arm is weak from stroke. She keeps pointing to discomfort around her shoulder but I do not see deformity or abrasions or contusions in this area. Her motion is good despite having some nonspecific soreness. Neuro Neuro Narrative: Patient is weakness mostly of the left upper extremity. She has significant speech difficulties. But she does not appear to have any difficulty understanding questions. Sensorium / Orientation: alert Psych mental status grossly normal Skin Skin Narrative: Skin tear/small laceration lateral to left eye. Slight contusions on right forearm. MDM MDM MDM Narrative Medical decision making narrative: Patient's blood work shows some mild anemia. However, this is at her baseline. Electrolytes are normal other than minimally decreased potassium which is also common for her. I do not think this is the cause of any symptoms. CT scan of her head showed no acute process. X-ray of her shoulder is negative for acute. Pelvis x-ray shows chronic changes but nothing acute. We wanted to provide a little better closure to the small laceration left of the eye. This patient moves continually. This makes it hard to suture. We were able to clean it. I prepped the skin. I placed Steri-Strips over this with good closure. We are calling to see if she has somebody who can take her home. Lab Data Attestation: I reviewed the patient's lab results. Labs: Laboratory Results - last 24 hr 05/25/22 05/25/22 22:15 22:15 WBC 9.2 RBC 4.21 Hgb 9.7 L Hct 32.7 L MCV 77.7 L MCH 23.0 L MCHC 29.7 L RDW Std Deviation 59.0 H RDW Coeff of Jeanine 21.3 H Plt Count 519 H MPV 8.7 Immature Gran % (Auto) 0.300 Neut % (Auto) 40.6 L Lymph % (Auto) 48.9 H [place] % (Auto) 7.7 Eos % (Auto) 1.2 Baso % (Auto) 1.3 H Absolute Neuts (auto) 3.7 Absolute Lymphs (auto) 4.50 Nucleated RBC % 0 Platelet Estimate MOD INC RBC Morphology N CHROM Hypochromasia 1+ Anisocytosis 1+ Microcytosis 1+ Sodium 134 L Potassium 3.4 L Chloride 99 Carbon Dioxide 28.0 Anion Gap 7 BUN 5 L Creatinine 0.89 Estim Creat Clear Calc 47.68 Est GFR (MDRD) Af Amer 83 Est GFR (MDRD) Non-Af 69 BUN/Creatinine Ratio 5.6 L Glucose 92 Calcium 8.5 Radiography Diagnostic Testing: Clinical Impression(s) from Imaging Studies Brain CT 05/25/22 22:30 IMPRESSION: Left supraorbital scalp injury with no calvarial fracture or acute intracranial abnormality. Stable brain atrophy with chronic large and small vessel ischemic changes. Electronically Signed: Cam Saleh MD at 23:20 EDT , Shoulder X-Ray 05/25/22 22:30 IMPRESSION: Negative right shoulder x-rays. Electronically Signed: Dequan Sanchez MD at 23:24 EDT , Pelvis X-Ray 05/25/22 22:50 IMPRESSION: 1. Slightly expansile lytic lesion right inferior pubic unchanged since previous examination 07/23/2020 and 06/03/2012. 2. Left hip arthroplasty. No acute abnormality. Electronically Signed: Dequan Sanchez MD at 23:21 EDT , EKG Initial EKG: Comments: EKG done for fall read by me shows normal sinus rhythm. Overall rate of 93. Mild baseline variation but no ventricular ectopy. No acute ST elevation or depression. There are some nonspecific changes. WA interval, QRS duration are normal. QTc is toward the longer and at 479 ms. Discharge Plan Triage Chief Complaint: Fall ED Provider: Fred King Dx/Rx/DC Orders Clinical Impression: Fall from slip, trip, or stumble, Laceration of face, Chronic anemia Instructions: ED Head Injury (Adult), ED Laceration: All Closures Prescriptions: No Action cyclobenzaprine 10 mg tablet 10 mg PO DAILY potassium chloride [Klor-Con] 20 mEq packet 20 meq PO DAILY atorvastatin 40 MG tablet 40 mg PO DAILY paroxetine HCl 20 MG tablet 20 mg PO DAILY doxepin 100 MG capsule 100 mg PO QHS Label Comments: TAKE 1 CAPSULE BY MOUTH ONCE DAILY AT BEDTIME ergocalciferol (vitamin D2) 1,250 mcg (50,000 unit) capsule 50,000 units PO QMONTH melatonin 10 mg tablet,ext release multiphase 10 mg PO QHS bupropion HCl (smoking deter) 150 mg tablet extended release 12 hr 150 mg PO BID famotidine 40 MG tablet 40 mg PO DAILY nicotine 7 mg/24 hr patch 24 hour 7 mg TP DAILY pantoprazole 20 MG tablet 20 mg PO BID Qty: 60 0RF acetaminophen 500 MG tablet 2 tab PO TID PRN (Reason: Pain Or Fever) Qty: 1 0RF Rx Instructions: over the counter, no prescription needed. aspirin 81 MG tablet,delayed release (DR/EC) 81 mg PO BID Qty: 0 0RF Rx Instructions: twice daily for 28 days (through 08/20) then resume daily dosing thereafter. Primary Care Provider: Zachary Vargas Chi Referrals: Zachary Vargas Chi, MD [Primary Care Provider] - 3-5 Days Disposition Disposition: Home, Self Care
--- NOTE | 2022-05-25 22:50 | RAD_ITS ---
EXAM: XR PELVIS, 1 OR 2 VIEWS CLINICAL INDICATION: Trauma TECHNIQUE: Frontal view of the pelvis. This report was created using [employer] report generation technology. COMPARISON: 07/23/2020 and 06/03/2012. FINDINGS: BONES/JOINTS: Slightly expansile lytic lesion right inferior pubic unchanged since previous examination 07/23/2020 and 06/03/2012. Left hip arthroplasty. No displaced fracture. Sacroiliac joints are unremarkable. No widening of the pubic symphysis. SOFT TISSUES: Unremarkable. No soft tissue swelling or gas. RAD/Pelvis 1 or 2 Views IMPRESSION: 1. Slightly expansile lytic lesion right inferior pubic unchanged since previous examination 07/23/2020 and 06/03/2012. 2. Left hip arthroplasty. No acute abnormality. Electronically Signed: Dequan Sanchez MD at 23:21 EDT ,
[2022-05-25 23:02] LABS: Absolute Neutrophil Count 3.7 X10^3/uL (2.0-7.7); Basophil# 0.12 X10^3/uL; Basophil% 1.3 % (0-1); Eosinophil# 0.11 X10^3/uL; Eosinophils% 1.2 % (0-5); Hematocrit 32.7 % (37-47); Hemoglobin 9.7 g/dL (12.0-15.0); Lymphocyte % 48.9 % (19-41); Mean Corp Hgb Conc 29.7 g/dL (32-36); Mean Corpuscular Volume 77.7 fL (81-99); Mean Platelet Vol. 8.7 fl (6.2-12.0); Monocyte# 0.71 X10^3/uL; Monocyte% 7.7 % (0-10); NRBC Flagged by Analyzer 0 % (0-5); Neutrophil # 3.73 X10^3/uL (2.7-7.7); Neutrophil % 40.6 % (47-70); POSITIVE MORPHOLOGY YES; Platelet Count 519 K/mm3 (150-450); RBC Distribution Width CV 21.3 % (11.6-14.6); Red Blood Count 4.21 M/mm3 (4.2-5.4); White Blood Count 9.2 K/mm3 (4.4-11.0)
[2022-05-25 23:17] LABS: Anion Gap 7 (5-15); BUN 5 mg/dL (7-18); BUN/Creat Ratio 5.6 RATIO (10-20); Calcium,Total 8.5 mg/dL (8.5-10.1); Chloride 99 mmol/L (98-107); Creatinine, Serum 0.89 mg/dL (0.55-1.02); EST Glomerular Filtration Rate 69 mL/min (>60); Est Glom Filt Rate - Afr Amer 83 mL/min (>60); Estimated Creatinine Clearance 47.68 ml/min; Glucose 92 mg/dL (74-106); Potassium 3.4 mmol/L (3.5-5.1); Sodium Level 134 mmol/L (136-145)
[2022-05-25 23:34] LABS: Differential Indicated SCAN CRITERIA MET
[2022-05-25 23:39] LABS: Platelet Estimate MOD INC (ADEQ)
[2022-05-25 23:40] LABS: Anisocytosis 1+; Hypochromasia 1+; Microcytosis 1+; Red Cell Morphology N CHROM NORMAL (NORM C&C)
== END 2022-05-26 01:36 | disposition home or self-care (01) ==
PROVIDERS: Emergency Provider Emergency Medicine; PCP Family Medicine Geriatric Medicine; Visit Provider Emergency Medicine
DX: S01.81XA Laceration without foreign body of other part of head, initial encounter (principal); I69.354 Hemiplegia and hemiparesis following cerebral infarction affecting left non-dominant side; J43.9 Emphysema, unspecified; E78.5 Hyperlipidemia, unspecified; F17.210 Nicotine dependence, cigarettes, uncomplicated; F32.A Depression, unspecified; F41.9 Anxiety disorder, unspecified; S50.11XA Contusion of right forearm, initial encounter; W01.0XXA Fall on same level from slipping, tripping and stumbling without subsequent striking against object, initial encounter; Z79.899 Other long term (current) drug therapy; K21.9 Gastro-esophageal reflux disease without esophagitis; Z79.82 Long term (current) use of aspirin; D50.9 Iron deficiency anemia, unspecified
CPT/HCPCS: 70450; 72170; 73030; 80048; 85025; 93005; 99285; A4216

== ENCOUNTER 2022-05-30 00:49 | Emergency (ER) | payer MEDICAID, SELFPAY ==
[2022-05-30 00:51] VITALS: BP 111/74; PULSE 58; RESP 93; TEMP 36.2; O2SAT 92; BMI 23.2
--- NOTE | 2022-05-30 01:40 | CT_ITS ---
STUDY: CT CERVICAL SPINE WITHOUT CONTRAST REASON FOR EXAM: Female, 62 years old. injury RADIATION DOSAGE (If Supplied By Facility): CTDIvol = ( 12.99 ) mGy, DLP = ( 261.91 ) mGycm TECHNIQUE: High resolution transaxial imaging was performed without contrast material. Sagittal and coronal images were reconstructed. Individualized dose optimization techniques were used for this CT. COMPARISON: Cervical spine CT of 05/20/2020. FINDINGS: Normal craniovertebral junction. Degenerative spurring again noted about the predentate distance. No odontoid fracture. Slight degenerative anterior subluxation C2 on C3. Mild degenerative narrowing of the C3/4 disc space with surrounding osteophytes. C6/7 disc space shows minimal degenerative narrowing with marginal osteophytes. Remaining cervical disc spaces are preserved. There is old stable compression deformity involving the T1 vertebral body. No acute compression fracture identified. Extensive cervical facet arthritis is noted. No posterior element fracture or facet dislocation. No thecal sac stenosis. No precervical soft tissue swelling. Visualized upper ribs are intact. Pulmonary emphysema noted in the lung apices. Normal cervical lordosis. Normal vertebral bodies and posterior osseous elements. CT/Spine Cervical without Contras IMPRESSION: No significant interval change. Stable cervical degenerative changes. No acute fracture. Electronically Signed: Daniel Stern MD at 2:26 EDT ,
--- NOTE | 2022-05-30 01:40 | CT_ITS ---
STUDY: CT BRAIN WITHOUT CONTRAST REASON FOR EXAM: Female, 62 years old. injury RADIATION DOSAGE (If Supplied By Facility): CTDIvol = ( 44.99 ) mGy, DLP = ( 779.24 ) mGycm TECHNIQUE: Transaxial CT imaging of the brain was performed without administration of intravenous contrast material. Individualized dose optimization techniques were used for this CT. COMPARISON: Previous CT of 05/25/2022. FINDINGS: Soft tissue swelling and bubbles of subcutaneous emphysema noted overlying the lateral wall of the left orbit and lateral left frontal bone, consistent with laceration. Adjacent frontal sinus layton and orbital rims are intact. No linear or depressed skull fracture is identified. There is an old fracture of the right zygomatic arch. Left zygomatic arch is intact. Findings of an old right MCA distribution infarction again noted with a large wedge-shaped area of encephalomalacia involving the right frontal and parietal lobes. Ex vacuo enlargement of the right lateral ventricle. Secondary atrophy of the right cerebral peduncle. Moderate atrophy and patchy chronic small vessel ischemic changes again noted. There is no intracranial hemorrhage. There are no findings of an acute ischemic infarction. No midline shift. Normal visualized paranasal sinuses. Visualized mastoid air cells are clear. CT/Brain/Head without Contrast IMPRESSION: Soft tissue swelling and laceration overlying the lateral wall of the left orbit and lateral left frontal bone. No skull fracture or acute intracranial hemorrhage. Atrophy and old right MCA distribution infarction again noted. Electronically Signed: Daniel Stern MD at 2:21 EDT ,
[2022-05-30 01:58] VITALS: BP 113/89; PULSE 76; RESP 17; O2SAT 98
--- NOTE | 2022-05-30 02:00 | RAD_ITS ---
STUDY: X-RAY - LEFT SHOULDER REASON FOR EXAM: Female, 62 years old. injury TECHNIQUE: 2 view(s) of the shoulder. COMPARISON: Left humeral radiographs of 11/13/2020.. FINDINGS: Osseous structures are demineralized. The previously noted proximal humeral fracture has healed. Normal glenohumeral articulation. Normal acromioclavicular joint. Normal acromion. Normal humeral head and visualized proximal humerus. The soft tissue structures are unremarkable. Numerous well healed/old left rib fractures are present. On the AP view, there is slight cortical disruption involving the lateral left fifth rib. RAD/Shoulder min 2 Views IMPRESSION: Findings suspicious for acute nondisplaced fracture of the left fifth rib. No acute proximal humeral fracture or shoulder dislocation identified. Electronically Signed: Daniel Stern MD at 2:30 EDT ,
[2022-05-30 03:00] VITALS: RESP 18
[2022-05-30] MEDS: oxyCODONE 5 MG Tablet PO (04:00)
--- NOTE | 2022-05-30 05:28 | EDS_ITS ---
HPI History of Present Illness Chief Complaint: Fall Narrative Narrative: Patient is a 62-year-old female with past medical history of previous stroke. She has difficulty speaking secondary to this and has balance issues following the stroke as well. Patient had a mechanical fall this evening and struck her head. There is no reported loss of consciousness but with the trauma to the head and concern she may need sutures as well as having underlying injury she was sent to the hospital for evaluation. [facility] Medical History Anemia Anxiety and depression Arthritis Asthma COPD (chronic obstructive pulmonary disease) Difficulty swallowing Emphysema lung Encounter for screening for malignant neoplasm of lung in current smoker with 30 pack year history or greater Gammopathy GERD (gastroesophageal reflux disease) History of back problems Hyperlipidemia Hypothyroidism Iron deficiency anemia due to chronic blood loss Left hemiplegia Nicotine abuse Osteoporosis Polycythemia vera Thrombocytosis Tobacco use disorder, continuous Home Medications atorvastatin 40 mg tablet 40 mg PO DAILY cholesterol 12/26/18 [History Last Taken 07/21/20] doxepin 100 mg capsule 100 mg PO QHS depression 12/10/19 [History Last Taken 07/21/20] paroxetine HCl 20 mg tablet 20 mg PO DAILY depression 12/10/19 [History Last Taken 07/21/20] bupropion HCl (smoking deter) 150 mg tablet,12 hr sustained-release(smoking deterrent) 150 mg PO BID depression 05/20/20 [History Last Taken 07/22/20] ergocalciferol (vitamin D2) 1,250 mcg (50,000 unit) capsule 50,000 units PO QMONTH supplement 05/20/20 [History Last Taken 07/09/20] melatonin 10 mg tablet,extended release,multiphase 10 mg PO QHS sleep 05/20/20 [History Last Taken 07/21/20] cyclobenzaprine 10 mg tablet 10 mg PO DAILY muscle spasm 07/16/20 [History Last Taken 07/21/20] famotidine 40 mg tablet 40 mg PO DAILY gerd 07/22/20 [History Last Taken Unknown] nicotine 7 mg/24 hr daily transdermal patch 7 mg TP DAILY smoking 07/22/20 [History Last Taken Unknown] acetaminophen 500 mg tablet 2 tab PO TID PRN Pain Or Fever #1 TAB 07/26/20 [Rx Last Taken Unknown] aspirin 81 mg tablet,delayed release 81 mg PO BID health maintenance ##0 07/26/20 [Rx Last Taken 07/18/20] pantoprazole 20 mg tablet,delayed release 20 mg PO BID #60 tabs 07/26/20 [Rx Last Taken Unknown] potassium chloride 20 mEq oral packet (Klor-Con) 20 meq PO DAILY 03/06/22 [History Last Taken Unknown] oxycodone-acetaminophen 5 mg-325 mg tablet (Percocet) 1 tab PO Q6H PRN pain 3 days #12 tabs 05/30/22 [Rx Last Taken Unknown] Allergy/AdvReac Type Severity Reaction Status Date / Time No Known Allergies Allergy Verified 05/30/22 00:55 Family History Mother Diabetes Cancer Surgical History History of right knee surgery right ankle surgery Social History Smoking Status: Current every day smoker tobacco type: cigarettes alcohol intake: never substance use type: does not use ROS ROS ED Constitutional Constitutional ED: Denies chills or fever(s) Eyes Eyes: Denies change in vision ENT ENT ED: Denies sore throat Cardiovascular Cardiovascular: Denies chest pain Respiratory/Chest Respiratory/Chest: Denies cough or dyspnea Gastrointestinal Gastrointestinal: Denies abdominal pain, diarrhea, nausea or vomiting Genitourinary Genitourinary ED: Denies dysuria Musculoskeletal Musculoskeletal: Reports other Details: Positive left shoulder pain ; Denies back pain, myalgias or neck pain Integumentary Reports Abrasions and other Details: Positive facial laceration ; Denies rash Neurologic Neurologic: Denies headache(s) Hematologic/Lymphatic Hematologic/Lymphatic: Denies easy bleeding or easy bruising EXAM Physical Exam Const Vital Signs: 05/30/22 00:51 05/30/22 01:58 05/30/22 03:00 Temperature 97.2 F L Temperature Source Temporal Pulse Rate 58 L 76 Respiratory Rate 93 H 17 18 Blood Pressure 111/74 113/89 H Blood Pressure Mean 86 97 Pulse Ox 92 98 Oxygen Delivery Method Room Air Room Air Room Air 05/30/22 05:44 Temperature Temperature Source Pulse Rate 65 Respiratory Rate 18 Blood Pressure 110/65 Blood Pressure Mean Pulse Ox Oxygen Delivery Method Positive well nourished and well developed General Appearance ED: well developed HEENT HEENT Narrative: Patient has a jagged but linear laceration to the lateral aspect of the left forehead just above the eye. The wound is subcutaneous layer deep and 5 cm in length. There is minimal ooze of blood with no active arterial bleed and no signs of foreign body. Otherwise there are no signs of depressed or basilar skull fracture Eyes PERRL and EOMs intact bilaterally Eyes Narrative: No hyphema noted Neck supple Neck Narrative: No bony deformity or step-off of the cervical spine no midline pain on palpation Chest Wall Chest Narrative: Palpation of the left anterior lateral chest wall rib regions 4-6 without bony deformity or crepitance Resp normal respiratory effort and clear to auscultation bilaterally Cardio regular rate and regular rhythm GI non-tender and non-distended Auscultation: normoactive bowel sounds Palpation: soft Back/Spine Back/Spine Narrative: No bony deformity or step-off of the thoracic or lumbar spine no midline pain with palpation Extremity Extremity Narrative: Patient has a chronic contracture of her left arm and there is an abrasion over top the lateral aspect of the left shoulder without bony deformity joint effusion or sulcus sign Pelvis is stable there is no shortening or external rotation of either lower extremity Neuro oriented x3 Neuro Narrative: Patient has chronic findings from her past CVA without new or acute changes Sensorium / Orientation: alert Psych mental status grossly normal Skin Skin Narrative: Abrasion to the left arm as documented above as well as the laceration to the head/face MDM MDM MDM Narrative Medical decision making narrative: Patient presented to the ER awake and alert with stable vitals and at her baseline mental status with no new or acute neurologic finding. She reported mechanical fall and secondary to this I felt no need for cardiac or syncope work-up. Imaging studies were obtained and only significant finding was 5th left rib fracture. The wound was sutured as documented below and following this patient is otherwise safe for discharge Patient had the left forehead/scalp cleaned with chlorhexidine. It was anesthetized with a total of 6 mL of 1% lidocaine with epinephrine in local fashion. The wound was copiously irrigated with normal saline. Then ten 5-0 Ethilon sutures were placed in simple interrupted fashion to bring the wound together good approximation. Patient tolerated the procedure well without co mplication. Radiography Diagnostic Testing: Clinical Impression(s) from Imaging Studies Brain CT 05/30/22 01:40 IMPRESSION: Soft tissue swelling and laceration overlying the lateral wall of the left orbit and lateral left frontal bone. No skull fracture or acute intracranial hemorrhage. Atrophy and old right MCA distribution infarction again noted. Electronically Signed: Daniel Stern MD at 2:21 EDT , Cervical Spine CT 05/30/22 01:40 IMPRESSION: No significant interval change. Stable cervical degenerative changes. No acute fracture. Electronically Signed: Daniel Stern MD at 2:26 EDT , Shoulder X-Ray 05/30/22 02:00 IMPRESSION: Findings suspicious for acute nondisplaced fracture of the left fifth rib. No acute proximal humeral fracture or shoulder dislocation identified. Electronically Signed: Daniel Stern MD at 2:30 EDT , X-ray of the left shoulder as interpreted by the emergency medicine physician reveals no acute fracture or dislocation there is apparent fracture of the left fifth rib Discharge Plan Triage Chief Complaint: Fall ED Provider: Landon Felton Dx/Rx/DC Orders Clinical Impression: Head injury, Facial laceration, Accidental fall, Left rib fracture Instructions: ED Rib Fracture, ED Head Injury (Adult), ED Laceration: All Closures Prescriptions: New oxycodone-acetaminophen [Percocet] 5-325 mg tablet 1 tab PO Q6H PRN (Reason: pain) 3 Days Qty: 12 0RF No Action cyclobenzaprine 10 mg tablet 10 mg PO DAILY potassium chloride [Klor-Con] 20 mEq packet 20 meq PO DAILY atorvastatin 40 MG tablet 40 mg PO DAILY paroxetine HCl 20 MG tablet 20 mg PO DAILY doxepin 100 MG capsule 100 mg PO QHS Label Comments: TAKE 1 CAPSULE BY MOUTH ONCE DAILY AT BEDTIME ergocalciferol (vitamin D2) 1,250 mcg (50,000 unit) capsule 50,000 units PO QMONTH Rx Instructions: 1st of every month melatonin 10 mg tablet,ext release multiphase 10 mg PO QHS bupropion HCl (smoking deter) 150 mg tablet extended release 12 hr 150 mg PO BID famotidine 40 MG tablet 40 mg PO DAILY nicotine 7 mg/24 hr patch 24 hour 7 mg TP DAILY pantoprazole 20 MG tablet 20 mg PO BID Qty: 60 0RF acetaminophen 500 MG tablet 2 tab PO TID PRN (Reason: Pain Or Fever) Qty: 1 0RF Rx Instructions: over the counter, no prescription needed. aspirin 81 MG tablet,delayed release (DR/EC) 81 mg PO BID Qty: 0 0RF Rx Instructions: twice daily for 28 days (through 08/20) then resume daily dosing thereafter. Primary Care Provider: Zachary Vargas Chi Referrals: Zachary Vargas Chi, MD [Primary Care Provider] - Activity Restrictions/Additional Instructions: Please see your family doctor or return to the ER in 7 to 10 days for suture removal Disposition Disposition: Home, Self Care Discharge Date/Time: 05/30/22 05:45
[2022-05-30 05:44] VITALS: BP 110/65; PULSE 65; RESP 18
== END 2022-05-30 05:45 | disposition home or self-care (01) ==
PROVIDERS: Emergency Provider Emergency Medicine; PCP Family Medicine Geriatric Medicine; Visit Provider Emergency Medicine
DX: S01.81XA Laceration without foreign body of other part of head, initial encounter (principal); J43.9 Emphysema, unspecified; S22.32XA Fracture of one rib, left side, initial encounter for closed fracture; E78.5 Hyperlipidemia, unspecified; F17.210 Nicotine dependence, cigarettes, uncomplicated; W19.XXXA Unspecified fall, initial encounter; I69.328 Other speech and language deficits following cerebral infarction; I69.398 Other sequelae of cerebral infarction; R26.81 Unsteadiness on feet; Z79.82 Long term (current) use of aspirin; Z79.899 Other long term (current) drug therapy
CPT/HCPCS: 12013; 70450; 72125; 73030; 99285

== ENCOUNTER → 2022-07-30 | Outpatient (CLI) | payer MEDICAID, SELFPAY ==
--- NOTE | 2022-07-30 15:40 | RAD_ITS ---
INDICATION: NAUSEA EXAMINATION/TECHNIQUE: X-RAY - XR Abdomen 1 View COMPARISON: 05/25/2022 FINDINGS: BOWEL GAS PATTERN: Non-obstructive. No bowel or stomach distention. Abundance of stool is visualized in the large bowel. FREE AIR: Not assessed on a single supine view. ORGANOMEGALY: Not seen. CALCIFICATIONS: The renal beds are obscured by overlying bowel loops with abundant stool. LOWER CHEST: No acute pathology. BONES AND SOFT TISSUES: No acute pathology. RAD/Abdomen Single View IMPRESSION: Abundance of stool visualized in the large bowel. Non-obstructive bowel gas pattern. Electronically Signed: Willard Daly MD at 17:01 EDT ,
[2022-07-30 16:30] LABS: Absolute Lymphocyte Count 2.91 X10^3/uL (0.83-4.51); Basophil# 0.08 X10^3/uL; Basophil% 0.9 % (0-1); Eosinophil# 0.07 X10^3/uL; Eosinophils% 0.8 % (0-5); Hematocrit 27.9 % (37-47); Hemoglobin 8.2 g/dL (12.0-15.0); Lymphocyte # 2.91 X10^3/ul (0.83-4.51); Lymphocyte % 33.1 % (19-41); Mean Corp Hgb Conc 29.4 g/dL (32-36); Mean Corpuscular Hgb 23.2 pg (27.0-32.0); Mean Corpuscular Volume 78.8 fL (81-99); Mean Platelet Vol. 8.9 fl (6.2-12.0); Monocyte# 0.73 X10^3/uL; Monocyte% 8.3 % (0-10); NRBC Flagged by Analyzer 0 % (0-5); Neutrophil # 4.99 X10^3/uL (2.7-7.7); Neutrophil % 56.7 % (47-70); POSITIVE COUNT YES; RBC Distribution Width SD 54.4 fl (35.1-43.9); Red Blood Count 3.54 M/mm3 (4.2-5.4); White Blood Count 8.8 K/mm3 (4.4-11.0)
[2022-07-30 16:34] LABS: Differential Indicated SCAN CRITERIA MET; Platelet Count 801 K/mm3 (150-450)
[2022-07-30 17:00] LABS: ALB/GLOB Ratio 0.6 RATIO (0.9-2.4); AST(SGOT) 17 U/L (15-37); Alanine Aminotransfer ALT/SGPT 20 U/L (13-56); Albumin, Serum 2.7 g/dL (3.2-5.0); Alkaline Phosphatase 166 U/L (45-117); Anion Gap 6 (5-15); BUN 8 mg/dL (7-18); BUN/Creat Ratio 8.7 RATIO (10-20); Calcium,Total 8.4 mg/dL (8.5-10.1); Chloride 109 mmol/L (98-107); Creatinine, Serum 0.92 mg/dL (0.55-1.02); EST Glomerular Filtration Rate 66 mL/min (>60); Est Glom Filt Rate - Afr Amer 80 mL/min (>60); Globulin 4.2 g/dL (2.2-4.2); Glucose 79 mg/dL (74-106); Potassium 3.7 mmol/L (3.5-5.1); Protein, Total 6.9 g/dL (6.4-8.2); Sodium Level 141 mmol/L (136-145); Thyroid Stim Hormone (TSH) 2.32 uIU/mL (0.358-3.74)
[2022-07-30 17:04] LABS: Differential Comment SCANNED
[2022-07-31 13:42] LABS: Pathologist Review Reviewed
== END | disposition home or self-care (01) ==
PROVIDERS: PCP Family Medicine Geriatric Medicine; Referring Provider Family Medicine Geriatric Medicine; Visit Provider Family Medicine Geriatric Medicine
DX: R53.83 Other fatigue (principal); R11.0 Nausea; E55.9 Vitamin D deficiency, unspecified; N39.0 Urinary tract infection, site not specified
CPT/HCPCS: 36415; 74018; 80053; 82306; 84443; 85025; 87086; 87088

== ENCOUNTER 2022-08-15 14:37 | Inpatient (IN) | payer MEDICAID, SELFPAY ==
[2022-08-15] VITALS (16 sets, daily range): BP systolic 74–122; BP diastolic 48–93; PULSE 102–119; RESP 16–22; TEMP 36.1–37.2; O2SAT 92–97; BMI 19.9; BMI 20.2
--- NOTE | 2022-08-15 15:26 | EKG12_ITS ---
Test Reason : DYSRHYTHMIA Blood Pressure : / mmHG Vent. Rate : 113 BPM Atrial Rate : 113 BPM P-R Int : 120 ms QRS Dur : 074 ms QT Int : 366 ms P-R-T Axes : 069 -67 099 degrees QTc Int : 502 ms Sinus tachycardia Left axis deviation Abnormal ECG Confirmed by JAIRO BARAJAS, [place] ([id number]), news videotape editor SHANNAN CHAVARRIA ([id number]) on 08/17/2022 9:28:36 AM Referred By: LUIS A Confirmed By:CLEVELAND GILL MD
--- NOTE | 2022-08-15 15:29 | EDS_ITS ---
HPI HPI - GI History of Present Illness Chief Complaint: Nausea/Vomiting/Diarrhea Detail of Chief Complaint: Epigastric abdominal pain Informant: patient Abdominal Pain/Flank Pain Onset: Days Context: Gradual Onset Timing: Continuous Quality: Aching and Burning Location: Epigastric Current Severity: Mild Maximum Severity: Mild Worsened by: Nothing Relieved by: Nothing Nausea/Vomiting/Emesis GI Symptom: Positive for Nausea and Vomiting Onset: Days Severity: Mild Diarrhea/Melena/Hematochezia GI Symptom: Positive for Diarrhea Onset: Days Stool Quality: Positive for Loose Severity: Mild Associated Symptoms Associated Symptoms: Negative for Dysuria, Frequency or Hematuria Narrative Narrative: 62-year-old female past medical history for anemia, peptic ulcer disease, COPD, asthma and prior strokes with left-sided weakness with contracture of her left arm. States that she has had nausea vomiting since Wednesday. Last night she is some coffee-ground material. She said epigastric abdominal pain. Subjective fever no chills. No melena. No dysuria. Loose stools. Prior similar symptoms: Yes Recent Illness/Hospitalization: No PFSH PFSH Medical History Anemia Anxiety and depression Arthritis Asthma COPD (chronic obstructive pulmonary disease) Difficulty swallowing Emphysema lung Encounter for screening for malignant neoplasm of lung in current smoker with 30 pack year history or greater Gammopathy GERD (gastroesophageal reflux disease) History of back problems Hyperlipidemia Hypothyroidism Iron deficiency anemia due to chronic blood loss Left hemiplegia Nicotine abuse Osteoporosis Polycythemia vera Thrombocytosis Tobacco use disorder, continuous Home Medications atorvastatin 40 mg tablet 40 mg PO DAILY cholesterol 12/26/18 [History Last Taken 07/21/20] doxepin 100 mg capsule 100 mg PO QHS depression 12/10/19 [History Last Taken 07/21/20] paroxetine HCl 20 mg tablet 20 mg PO DAILY depression 12/10/19 [History Last Taken 07/21/20] bupropion HCl (smoking deter) 150 mg tablet,12 hr sustained-release(smoking deterrent) 150 mg PO BID depression 05/20/20 [History Last Taken 07/22/20] ergocalciferol (vitamin D2) 1,250 mcg (50,000 unit) capsule 50,000 units PO QMONTH supplement 05/20/20 [History Last Taken 07/09/20] melatonin 10 mg tablet,extended release,multiphase 10 mg PO QHS sleep 05/20/20 [History Last Taken 07/21/20] cyclobenzaprine 10 mg tablet 10 mg PO DAILY muscle spasm 07/16/20 [History Last Taken 07/21/20] famotidine 40 mg tablet 40 mg PO DAILY gerd 07/22/20 [History Last Taken Unknown] nicotine 7 mg/24 hr daily transdermal patch 7 mg TP DAILY smoking 07/22/20 [History Last Taken Unknown] acetaminophen 500 mg tablet 2 tab PO TID PRN Pain Or Fever #1 TAB 07/26/20 [Rx Last Taken Unknown] aspirin 81 mg tablet,delayed release 81 mg PO BID health maintenance ##0 07/26/20 [Rx Last Taken 07/18/20] pantoprazole 20 mg tablet,delayed release 20 mg PO BID #60 tabs 07/26/20 [Rx Last Taken Unknown] potassium chloride 20 mEq oral packet (Klor-Con) 20 meq PO DAILY 03/06/22 [History Last Taken Unknown] oxycodone-acetaminophen 5 mg-325 mg tablet (Percocet) 1 tab PO Q6H PRN pain 3 days #12 tabs 05/30/22 [Rx Last Taken Unknown] Allergy/AdvReac Type Severity Reaction Status Date / Time No Known Allergies Allergy Verified 08/15/22 21:14 Family History Mother Diabetes Cancer Surgical History History of right knee surgery right ankle surgery Social History Smoking Status: Current every day smoker tobacco type: cigarettes alcohol intake: never substance use type: does not use ROS ROS ED ROS Narrative Nausea and vomiting. Abdominal pain. Subjective fever. Review of Systems ROS Unobtainable: Denies due to encephalopathy Constitutional Constitutional ED: Reports fever(s); Denies chills ENT ENT ED: Denies ear pain Cardiovascular Cardiovascular: Denies chest pain Respiratory/Chest Respiratory/Chest: Denies cough or dyspnea Gastrointestinal Gastrointestinal: Reports abdominal pain, diarrhea, nausea and vomiting; Denies constipation or melena Genitourinary Genitourinary ED: Denies dysuria or hematuria Integumentary Denies abscess Neurologic Neurologic: Denies headache(s) Psychiatric Psychiatric: Denies anxiety Endocrine Endocrinology: Denies polydipsia Hematologic/Lymphatic Hematologic/Lymphatic: Denies easy bleeding Allergic/Immunologic Allergic/Immunologic ED: Denies mouth swelling or tongue swelling EXAM Physical Exam Narrative Exam Narrative: 62-year-old female initially hypotensive 80/56. Tachycardic 114. H EENT exam moist [employer] members. They give dry reactive light. Neck nontender. Lungs clear to auscultation. Heart tachycardic rate about 143 no murmur. Chest wall nontender. Abdomen soft, nondistended, normal bowel sounds, no peritoneal signs. Epigastric tenderness. No rebound guarding or rigidity. No obstruction. No distention. Right upper and right lower quadrants are unremarkable. She is a contracture and does not move her left arm. She is weak in the left leg both these are old from her prior stroke. Right upper and lower extremity unremarkable. No edema. Neurologically she is awake and alert. Answering questions following commands. She has a left-sided deficit from prior stroke. Follow-up with Const Vital Signs: 08/15/22 14:42 08/15/22 14:45 08/15/22 15:00 Temperature 97 F L Temperature Source Temporal Pulse Rate 114 H 115 H 102 H Respiratory Rate 22 H 18 Blood Pressure 80/56 L 82/58 L 80/56 L Blood Pressure Mean 64 66 64 Pulse Ox 94 95 95 Oxygen Delivery Method Room Air Room Air Room Air 08/15/22 15:25 08/15/22 15:33 08/15/22 16:04 Temperature Temperature Source Pulse Rate 115 H 112 H 115 H Respiratory Rate 16 18 Blood Pressure 84/64 L 93/63 93/63 Blood Pressure Mean 70 73 73 Pulse Ox 96 95 94 Oxygen Delivery Method Room Air Room Air Room Air 08/15/22 16:30 08/15/22 17:00 08/15/22 19:25 Temperature Temperature Source Pulse Rate 111 H 110 H 110 H Respiratory Rate 18 19 H Blood Pressure 105/68 102/64 122/93 H Blood Pressure Mean 80 76 102 Pulse Ox 95 96 92 Oxygen Delivery Method Room Air Room Air Room Air 08/15/22 20:04 Temperature 97.7 F L Temperature Source Oral Pulse Rate 112 H Respiratory Rate 19 H Blood Pressure 94/62 Blood Pressure Mean 72 Pulse Ox 93 Oxygen Delivery Method Room Air Positive well nourished, well developed and contractures; Negative for obese, cachectic or unkempt General Appearance ED: well developed and contractures; Negative for unkempt, cachectic, NAD or pallor Nutritional Appearance: Negative for cachectic or obese HEENT Reports moist mucous membranes normocephalic and atraumatic; Negative for trauma Eyes PERRL and EOMs intact bilaterally General Eye ED: Negative for pale conjunctiva or scleral icterus Neck no lymphadenopathy, supple and no JVD General: Negative for tenderness Carotids: Negative for other Lymph Lymphatic: Negative for other Resp normal respiratory effort and clear to auscultation bilaterally Effort and Inspection: Negative for respiratory distress Auscultation: Negative for rales or rhonchi Cardio regular rhythm, S1 normal heart sound, S2 normal heart sound and no murmurs; Negative for regular rate Rate: tachycardic GI non-distended and no masses; Negative for non-tender Inspection: Negative for abdominal distention Auscultation: normoactive bowel sounds Palpation: soft and tender; Negative for guarding, rigid, hernia, mass or pulsatile mass Back/Spine no CVA tenderness General Back: Negative for CVA tenderness Cervical Spine: Negative for cervical spine tenderness Extremity Extremity Narrative: Left-sided weakness with left upper extremity contracture. Both from a prior stroke. General Extremety ED: Negative for edema or tenderness General Extremity: Negative for edema Neuro No moves all extremities Neuro Narrative: Left upper and lower extremity weakness. From a prior stroke. Sensorium / Orientation: alert, oriented to person, oriented to place and oriented to time; Negative for orientation impaired, confused, lethargic or stuporous Motor Exam: strength abnormal; Negative for strength 5/5 throughout Psych mental status grossly normal and thought process normal Appearance: Negative for unkempt Attitude: No agitated Mood & Affect: Negative for depressed, anxious or tearful Skin no wounds General Skin Exam: Negative for jaundice or pallor Lesions: no lesions Rashes: no rashes Trauma: Negative for abrasion MDM MDM MDM Narrative Medical decision making narrative: 62-year-old female hypotensive nausea and vomiting. Potentially could have an upper GI bleed with sweats in the emesis bag. She will be treated with IV fluids times a liter Zofran for nausea. Labs are being obtained. She is reportedly on no blood thinners except daily aspirin. Repeat exam at 18:20 pt nauseated and continued epigastric pain. Therefore, tx with IV Protonix and zofran . I spoke to the hospitalist patient will be admitted to the progressive care unit due to her hypotension. We are awaiting the CAT scan results. There is been problems with Internet so the radiology interpretations have been delayed. Lab Data Attestation: I reviewed the patient's lab results. Lab results narrative: CBC showed elevated white count of 21.2. H&H of 7.7 and 26 which is lower than her baseline chronic anemia. Platelets 657. PT/INR 13 and 1. PTT of 25. Electrolytes unremarkable. Potassium 3.3. Gap of 8. BUN 23 creatinine 0.9. Liver enzymes unremarkable. Lipase unremarkable. Labs: Laboratory Results - last 24 hr 08/15/22 08/15/22 08/15/22 16:20 16:20 16:20 WBC 21.2 H RBC 3.42 L Hgb 7.7 L Hct 26.6 L MCV 77.8 L MCH 22.5 L MCHC 28.9 L RDW Std Deviation 51.5 H RDW Coeff of Jeanine 18.2 H Plt Count 657 H MPV 9.1 Immature Gran % (Auto) 0.700 Neut % (Auto) 85.0 H Lymph % (Auto) 4.0 L Anson % (Auto) 10.1 H Eos % (Auto) 0.0 Baso % (Auto) 0.2 Absolute Neuts (auto) 18.0 H Absolute Lymphs (auto) 0.85 Nucleated RBC % 0 Differential Comment SCANNED Diff Path Review May foll Hypochromasia 3+ Ovalocytes 1+ Crenated Cell 1+ Schistocytes RARE PT 13.3 INR 1.0 APTT 25.4 Sodium Potassium Chloride Carbon Dioxide Anion Gap BUN Creatinine Estim Creat Clear Calc Est GFR (MDRD) Af Amer Est GFR (MDRD) Non-Af BUN/Creatinine Ratio Glucose Calcium Magnesium Total Bilirubin AST ALT Alkaline Phosphatase Total Protein Albumin Globulin Albumin/Globulin Ratio Lipase Blood Type O POSITIVE Antibody Screen NEGATIVE Crossmatch 08/15/22 08/15/22 08/15/22 16:20 16:20 16:20 WBC RBC Hgb Hct MCV MCH MCHC RDW Std Deviation RDW Coeff of Jeanine Plt Count MPV Immature Gran % (Auto) Neut % (Auto) Lymph % (Auto) Anson % (Auto) Eos % (Auto) Baso % (Auto) Absolute Neuts (auto) Absolute Lymphs (auto) Nucleated RBC % Differential Comment Diff Path Review Hypochromasia Ovalocytes Crenated Cell Schistocytes PT INR APTT Sodium 143 Potassium 3.3 L Chloride 106 Carbon Dioxide 29.0 Anion Gap 8 BUN 23 H Creatinine 0.97 Estim Creat Clear Calc 43.75 Est GFR (MDRD) Af Amer 75 Est GFR (MDRD) Non-Af 62 BUN/Creatinine Ratio 23.7 H Glucose 122 H Calcium 8.2 L Magnesium 1.8 Total Bilirubin 0.70 AST 19 ALT 19 Alkaline Phosphatase 141 H Total Protein 6.1 L Albumin 2.2 L Globulin 3.9 Albumin/Globulin Ratio 0.6 L Lipase 70 L Blood Type Antibody Screen Crossmatch See Detail 08/15/22 16:20 WBC RBC Hgb Hct MCV MCH MCHC RDW Std Deviation RDW Coeff of Jeanine Plt Count MPV Immature Gran % (Auto) Neut % (Auto) Lymph % (Auto) Anson % (Auto) Eos % (Auto) Baso % (Auto) Absolute Neuts (auto) Absolute Lymphs (auto) Nucleated RBC % Differential Comment Diff Path Review Hypochromasia Ovalocytes Crenated Cell Schistocytes PT INR APTT Sodium Potassium Chloride Carbon Dioxide Anion Gap BUN Creatinine Estim Creat Clear Calc Est GFR (MDRD) Af Amer Est GFR (MDRD) Non-Af BUN/Creatinine Ratio Glucose Calcium Magnesium Total Bilirubin AST ALT Alkaline Phosphatase Total Protein Albumin Globulin Albumin/Globulin Ratio Lipase Blood Type Antibody Screen Crossmatch See Detail Radiography Diagnostic Testing: Clinical Impression(s) from Imaging Studies Abdomen/Pelvis CT 08/15/22 18:19 IMPRESSION: 1. Thick-walled fluid-filled distal esophagus and hiatal hernia. This was not noted on prior CT of the chest dated 05/20/2022 ER on low dose lung screening study of 04/14/2022. Further follow-up with endoscopy or upper GI suggested. 2. Right renal cyst. 3. Increased rectal feces suggesting constipation. 4. Remote compression deformity of T10. 5. Left hip replacement. Electronically Signed: Rosalio Purdy DO at 20:37 EDT Reading Location ID and State: [address] [place] [address] Tel [phone], Service support , Rhythm Strip Rhythm Strip: Sinus Tach Rate: 113 Ectopy: None EKG Initial EKG: Attestation: I personally reviewed and interpreted this EKG as follows: Interpretation: Sinus Rhythm, No Acute Injury Pattern and Sinus Tachycardia Comments: Sinus tachycardia at 113. Discharge Plan Dx/Rx/DC Orders Clinical Impression: Abdominal pain, Anemia, Acute upper gastrointestinal bleeding, History of peptic ulcer, Leukocytosis Disposition Disposition: Acute Care Hospital [facility] Discharge Date/Time: 08/15/22 20:26
[2022-08-15] MEDS: Ondansetron 4 MG/2 ML Vial IV ×3 (16:00→22:26)
[2022-08-15] MEDS: 0.9% Normal Saline 1,000 ML 1000 ML IV (16:00)
[2022-08-15 16:46] LABS: Absolute Lymphocyte Count 0.85 X10^3/uL (0.83-4.51); Basophil# 0.04 X10^3/uL; Basophil% 0.2 % (0-1); Hematocrit 26.6 % (37-47); Hemoglobin 7.7 g/dL (12.0-15.0); Lymphocyte # 0.85 X10^3/ul (0.83-4.51); Mean Corp Hgb Conc 28.9 g/dL (32-36); Mean Corpuscular Hgb 22.5 pg (27.0-32.0); Mean Corpuscular Volume 77.8 fL (81-99); Mean Platelet Vol. 9.1 fl (6.2-12.0); Monocyte# 2.14 X10^3/uL; Monocyte% 10.1 % (0-10); NRBC Flagged by Analyzer 0 % (0-5); Neutrophil # 17.98 X10^3/uL (2.7-7.7); POSITIVE DIFFERENTIAL YES; Platelet Count 657 K/mm3 (150-450); RBC Distribution Width CV 18.2 % (11.6-14.6); RBC Distribution Width SD 51.5 fl (35.1-43.9); Red Blood Count 3.42 M/mm3 (4.2-5.4); White Blood Count 21.2 K/mm3 (4.4-11.0)
[2022-08-15 16:51] LABS: Partial Thromboplast Time 25.4 Seconds (24.1-36.2)
[2022-08-15 16:56] LABS: Differential Indicated SCAN CRITERIA MET; Prothrombin Time (Protime)PT. 13.3 SECONDS (11.7-14.9)
[2022-08-15 17:09] LABS: ALB/GLOB Ratio 0.6 RATIO (0.9-2.4); AST(SGOT) 19 U/L (15-37); Alanine Aminotransfer ALT/SGPT 19 U/L (13-56); Albumin, Serum 2.2 g/dL (3.2-5.0); Alkaline Phosphatase 141 U/L (45-117); Anion Gap 8 (5-15); BUN 23 mg/dL (7-18); BUN/Creat Ratio 23.7 RATIO (10-20); Calcium,Total 8.2 mg/dL (8.5-10.1); Chloride 106 mmol/L (98-107); Creatinine, Serum 0.97 mg/dL (0.55-1.02); EST Glomerular Filtration Rate 62 mL/min (>60); Est Glom Filt Rate - Afr Amer 75 mL/min (>60); Estimated Creatinine Clearance 43.75 ml/min; Globulin 3.9 g/dL (2.2-4.2); Glucose 122 mg/dL (74-106); Lipase 70 U/L (73-393); Potassium 3.3 mmol/L (3.5-5.1); Protein, Total 6.1 g/dL (6.4-8.2); Sodium Level 143 mmol/L (136-145)
[2022-08-15 17:22] LABS: Differential Comment SCANNED
[2022-08-15 17:23] LABS: Crenated RBC 1+; Ovalocyte 1+
[2022-08-15 17:24] LABS: Schistocytes RARE
[2022-08-15 17:25] LABS: Hypochromasia 3+
--- NOTE | 2022-08-15 18:19 | CT_ITS ---
STUDY: CT ABDOMEN AND PELVIS WITH CONTRAST REASON FOR EXAM: Female, 62 years old. Nausea, vomiting and diarrhea for 7 days. Epigastric abdominal pain. RADIATION DOSAGE (If Supplied By Facility): CTDIvol = ( 15.97 ) mGy, DLP = ( 420.12 ) mGycm TECHNIQUE: Transaxial images were obtained from the dome of the diaphragm to the symphysis pubis without oral contrast. IV 75mL [id number]-[id number] was administered. Sagittal and coronal images were reconstructed. Individualized dose optimization techniques were used for this CT. COMPARISON: Single view abdomen, 07/30/2022. FINDINGS: The visualized lung bases are unremarkable. The visualized portions of the heart are within normal limits. Fluid-filled thick-walled distal esophagus with associated hiatal hernia. Normal liver. Normal gallbladder and extrahepatic biliary system. Normal spleen. Normal pancreas. Normal bilateral adrenal glands. Cortical cyst in the upper pole and otherwise normal right kidney. Normal left kidney. Visualized ureters. Hiatal hernia. The stomach is filled with air and fluid. There is no mass or wall thickening. Normal small intestine. Increased rectal feces. The colon is otherwise grossly unremarkable. The appendix is visualized and appears normal. There is diffuse atherosclerotic calcification of the abdominal aorta, without a demonstrated aneurysm. Normal inferior vena cava. Normal retroperitoneum. Normal urinary bladder. Normal uterus. No adnexal mass or pelvic lymphadenopathy. No free air or free fluid is seen within the peritoneal cavity. Normal abdominal wall. There are diffuse degenerative changes of the visualized lumbar spine. There is a remote compression deformity of the T10 vertebra. Left hip replacement. CT/Abdomen/Pelvis W IV Cont ONLY IMPRESSION: 1. Thick-walled fluid-filled distal esophagus and hiatal hernia. This was not noted on prior CT of the chest dated 05/20/2022 ER on low dose lung screening study of 04/14/2022. Further follow-up with endoscopy or upper GI suggested. 2. Right renal cyst. 3. Increased rectal feces suggesting constipation. 4. Remote compression deformity of T10. 5. Left hip replacement. Electronically Signed: Rosalio Purdy DO at 20:37 EDT Reading Location ID and State: [facility] / [place] Tel [phone], Service support ,
--- NOTE | 2022-08-15 19:48 | CM.ED ---
JOE Duff said that she felt patient is not safe to go home. Patient will be admitted. Myrna SOMERS
--- NOTE | 2022-08-15 19:58 | PCM.HP.STD ---
HPI - General General Date of Admission: 08/15/22 Date of Service: 08/15/22 Chief Complaint: Epigastric pain, N/V, dark red blood in her emesis. HPI Narrative The patient is a 62 y/o F w/ PMHx: GERD w/ Hx PUD, Hx CVA with chronic LUE weakness/contracture, Anxiety and Depression, COPD/Asthma, Tobacco, Hypothyroidism, HTN, HLD, Chronic anemia/Fe deficiency anemia who presents to the [facility] ED on 08/15/22 with history of onset mild aching dull throbbing epigastric pain, worse with emesis bouts and oral intake attempts with ongoing nausea and emesis x 3 days with no onset dark red old appearing blood in her emesis, rating her abdominal discomfort as 7/10 at its worst. In the ED she had similar emesis and the blood with dark and old appearing. Currently she rates her discomfort 3-4 out of 10 and notes it is improved somewhat. She does have dark red blood coated on her lips from her most recent emesis while in the ED. Work-up in the ED included T 97, HR 114, BP initially 80/56 with most recent repeat 102/64, RR 18, 96% on RA, CBC w/ WBC 21.2, Hgb 7.7, MCV 77.8, Plts 657 with L shift, coags unremarkable, CMP w/ Nx 3.3, BUN/Cr 23/0.97, glucose 122, alk phos 141, lipase 70, T+ S performed per ED physician, CT A/P with pending read upon requested evaluation of patient. In the ED patient administered IV PPI, zofran x 1 and NS 1L bolus. [facility] Medical History Anemia Anxiety and depression Arthritis Asthma COPD (chronic obstructive pulmonary disease) Difficulty swallowing Emphysema lung Encounter for screening for malignant neoplasm of lung in current smoker with 30 pack year history or greater Gammopathy GERD (gastroesophageal reflux disease) History of back problems Hyperlipidemia Hypothyroidism Iron deficiency anemia due to chronic blood loss Left hemiplegia Nicotine abuse Osteoporosis Polycythemia vera Thrombocytosis Tobacco use disorder, continuous Home Medications atorvastatin 40 mg tablet 40 mg PO DAILY cholesterol 12/26/18 [History Last Taken 07/21/20] doxepin 100 mg capsule 100 mg PO QHS depression 12/10/19 [History Last Taken 07/21/20] paroxetine HCl 20 mg tablet 20 mg PO DAILY depression 12/10/19 [History Last Taken 07/21/20] bupropion HCl (smoking deter) 150 mg tablet,12 hr sustained-release(smoking deterrent) 150 mg PO BID depression 05/20/20 [History Last Taken 07/22/20] ergocalciferol (vitamin D2) 1,250 mcg (50,000 unit) capsule 50,000 units PO QMONTH supplement 05/20/20 [History Last Taken 07/09/20] melatonin 10 mg tablet,extended release,multiphase 10 mg PO QHS sleep 05/20/20 [History Last Taken 07/21/20] cyclobenzaprine 10 mg tablet 10 mg PO DAILY muscle spasm 07/16/20 [History Last Taken 07/21/20] famotidine 40 mg tablet 40 mg PO DAILY gerd 07/22/20 [History Last Taken Unknown] nicotine 7 mg/24 hr daily transdermal patch 7 mg TP DAILY smoking 07/22/20 [History Last Taken Unknown] acetaminophen 500 mg tablet 2 tab PO TID PRN Pain Or Fever #1 TAB 07/26/20 [Rx Last Taken Unknown] aspirin 81 mg tablet,delayed release 81 mg PO BID health maintenance ##0 07/26/20 [Rx Last Taken 07/18/20] pantoprazole 20 mg tablet,delayed release 20 mg PO BID #60 tabs 07/26/20 [Rx Last Taken Unknown] potassium chloride 20 mEq oral packet (Klor-Con) 20 meq PO DAILY 03/06/22 [History Last Taken Unknown] oxycodone-acetaminophen 5 mg-325 mg tablet (Percocet) 1 tab PO Q6H PRN pain 3 days #12 tabs 05/30/22 [Rx Last Taken Unknown] Allergy/AdvReac Type Severity Reaction Status Date / Time No Known Allergies Allergy Verified 08/15/22 14:42 Family History Mother Diabetes Cancer other (Patient denies any marked paternal family history including HD, DM, CA.) Surgical History History of right knee surgery right ankle surgery Social History Smoking Status: Current every day smoker tobacco type: cigarettes alcohol intake: never substance use type: does not use ROS ROS Narrative Admission Review of Systems: CONSTITUTIONAL: No weight loss, fever, chills, + weakness or fatigue. HEENT: Eyes: No visual loss, blurred vision, double vision or yellow sclerae. Ears, Nose, Throat: No hearing loss, sneezing, congestion, runny nose or sore throat. SKIN: No rash or itching, lesions, wounds. CARDIOVASCULAR: No chest pain, chest pressure or chest discomfort, palpitations, edema, orthopnea, syncopal events. RESPIRATORY: No shortness of breath, cough or sputum, wheezing, hemoptysis. GASTROINTESTINAL: + anorexia, nausea, vomiting, dark red blood tinged emesis, epigastric pain, No diarrhea, melena, BRBPR. GENITOURINARY: No dysuria, frequency, urgency or retention. NEUROLOGICAL: + Hx prior CVA w/ L sided hemiplegia, contracture, No headache, dizziness, syncope, change in bowel or bladder control, seizure. MUSCULOSKELETAL: + muscle, back pain, joint pain or stiffness. HEMATOLOGIC: + anemia, bleeding or bruising. LYMPHATICS: No enlarged nodes. No history of splenectomy. PSYCHIATRIC: + history of depression or anxiety. ENDOCRINOLOGIC: No reports of sweating, cold or heat intolerance. No polyuria or polydipsia. ALLERGIES: + history of asthma, rhinitis. Vital Signs Vital Signs Vital Signs: 08/15/22 14:42 08/15/22 14:45 08/15/22 15:00 Temperature 97 F L Temperature Source Temporal Pulse Rate 114 H 115 H 102 H Respiratory Rate 22 H 18 Blood Pressure 80/56 L 82/58 L 80/56 L Blood Pressure Mean 64 66 64 Pulse Ox 94 95 95 Oxygen Delivery Method Room Air Room Air Room Air 08/15/22 15:25 08/15/22 15:33 08/15/22 16:04 Temperature Temperature Source Pulse Rate 115 H 112 H 115 H Respiratory Rate 16 18 Blood Pressure 84/64 L 93/63 93/63 Blood Pressure Mean 70 73 73 Pulse Ox 96 95 94 Oxygen Delivery Method Room Air Room Air Room Air 08/15/22 16:30 08/15/22 17:00 08/15/22 19:25 Temperature Temperature Source Pulse Rate 111 H 110 H 110 H Respiratory Rate 18 19 H Blood Pressure 105/68 102/64 122/93 H Blood Pressure Mean 80 76 102 Pulse Ox 95 96 92 Oxygen Delivery Method Room Air Room Air Room Air Weight Weight: 102 lb 1.184 oz Body Mass Index (BMI) 19.9 Physical Exam Narrative Physical Examination: General: Awake, alert, oriented x 3 and cooperative, seated upright in the ED bed, fatigued and ill-appearing. Skin: Normal color, normal turgor, no icterus, no cyanosis except for very staged ecchymoses. HEENT: AT/NC, EOMI, PERRLA, dry MM, dried dark blood crusted on the sides of her mouth, no carotid bruits or JVD noted. Lungs: Diminished, greater bases, mildly increased respiratory rate but no distress no rales, ronchi or wheezing. Heart: Tachycardic with regular rhythm; no gallop, rub audible. Abdomen: Soft, mild epigastric discomfort to palpation but no rebound or guarding, ND, hyperactive BS, no HSM. Extremities: No cyanosis, clubbing, or edema. Neurological: Patient awake, alert, oriented as noted, cognitive function intact; pupils equally reactive to light and accommodation, cranial nerves II-XII grossly normal, moving all 4 extremities, no focal deficits, strength moderately global decrease secondary to acute presentation Psychiatric: Affect appears fatigued, no acute evidence of depressive or anxiety feelings. Results Lab / Micro Data Result Diagrams: 08/15/22 16:20 08/15/22 16:20 Labs: Laboratory Results - last 24 hr 08/15/22 16:20: PT 13.3, INR 1.0, APTT 25.4 08/15/22 16:20: Blood Type O POSITIVE, Antibody Screen NEGATIVE 08/15/22 16:20: WBC 21.2 H, RBC 3.42 L, Hgb 7.7 L, Hct 26.6 L, MCV 77.8 L, MCH 22.5 L, MCHC 28.9 L, RDW Std Deviation 51.5 H, RDW Coeff of Jeanine 18.2 H, Plt Count 657 H, MPV 9.1, Immature Gran % (Auto) 0.700, Neut % (Auto) 85.0 H, Lymph % (Auto) 4.0 L, Yates % (Auto) 10.1 H, Eos % (Auto) 0.0, Baso % (Auto) 0.2, Absolute Neuts (auto) 18.0 H, Absolute Lymphs (auto) 0.85, Nucleated RBC % 0, Differential Comment SCANNED, Diff Path Review May foll, Hypochromasia 3+, Ovalocytes 1+, Crenated Cell 1+, Schistocytes RARE 08/15/22 16:20: Sodium 143, Potassium 3.3 L, Chloride 106, Carbon Dioxide 29.0, Anion Gap 8, BUN 23 H, Creatinine 0.97, Estim Creat Clear Calc 43.75, Est GFR (MDRD) Af Amer 75, Est GFR (MDRD) Non-Af 62, BUN/Creatinine Ratio 23.7 H, Glucose 122 H, Calcium 8.2 L, Total Bilirubin 0.70, AST 19, ALT 19, Alkaline Phosphatase 141 H, Total Protein 6.1 L, Albumin 2.2 L, Globulin 3.9, Albumin/Globulin Ratio 0.6 L, Lipase 70 L Rhythm Strip Rhythm Strip: Sinus Tach Rate: 113 Ectopy: None Assessment & Plan Assessment/Plan (1) Epigastric pain: PLAN: Plan The patient is a 62 y/o F w/ PMHx: GERD w/ Hx PUD, Hx CVA with chronic LUE weakness/contracture, Anxiety and Depression, COPD/Asthma, Tobacco, Hypothyroidism, HTN, HLD, Chronic anemia/Fe deficiency anemia who presents to the [facility] ED on 08/15/22 with history of onset mild aching dull throbbing epigastric pain, worse with emesis bouts and oral intake attempts with ongoing nausea and emesis x 3 days with no onset dark red old appearing blood in her emesis, rating her abdominal discomfort as 7/10 at its worst. #1. Epigastric pain, Nausea and Emesis with noted dark red blood with Hx GI bleed w/ PUD disease w/ Acute on Chronic Anemia/Fe Deficiency anemia: Will admit to PCU given low BPs in the ED, maintain NPO status, maintain on IV PPI, trend HH, repeat CMP/lipase in AM to be cautious, obtain GI consultation, awaiting CT A/P read with preliminary read per ED physician without acute findings. #2. Hypokalemia: Admission K 3.3, will obtain mag level, will supplement and repeat level in AM. #3. Hx CVA: Patient status post significant CVA with left-sided upper extremity contractures and mild hemiplegia, temporarily holding aspirin given acute presentation as noted, continue statin, not on hypertensive regimen, continue to monitor blood pressure and if diastolic pressures remain elevated will consider initiation of regimen. #4. Hypertension: Noted history, from current list not on regimen, continue closely monitor pressures and if appropriate add oral regimen, as needed IV hydralazine in interim. #5. Hyperlipidemia: We will continue patient on statin therapy. #6. Anxiety and depression: We will continue patient home paroxetine, bupropion as well as doxepin home regimen. #7. Chronic COPD/asthma: Not on routine inhalers, will have PRN albuterol, HOB, IS parameters. #8. Tobacco Abuse: Encouraged cessation, inpatient consultation per RT, NR if desired. #9. Chronic cannabis usage: Patient admits to routine heavy cannabis usage chronically. #10. Hypothyroidism: We will continue patient on levothyroxine regimen. #11. Severe protein calorie malnutrition: Evidenced by reduced BMI and obvious muscle and fat loss, nutrition consulted. #12. DVT prophylaxis: SCDs, hold chemoprophylaxis given acute presentation. Charges/Coding Visit Charges OBSV E&M: 14968 Initial observation care L3
--- NOTE | 2022-08-15 20:01 | CM.ED ---
Addendum entered by Myrna Russo 08/15/22 20:09: Patient told this technical report writer she did not want to go to rehab but she wanted something to drink or chew on. RN advised that patient has a potential GI bleed so she can not have anything to eat or drink and patient was advised of this. Myrna SOMERS Original Note: MOOSE Note Sw went into patient's room and introduced self. Patient said that things are going ok at home but stated she has been sick for 1 week. Patient said that she lives by herself but her boyfriend, Chirag and brother help her. Patient said that boyfriend, Chirag, helps her with bathing. SW asked where patient had gone for rehab after her stroke and patient said [facility] and per records it appears that she was on RU in 2014. Patient is not feeling well so the interview was discontinued at this time. MOOSE sent email regarding patient in the daily report. Plan: to be determined Myrna SOMERS
[2022-08-15 21:00] LABS: Magnesium 1.8 mg/dL (1.6-2.6)
[2022-08-15] MEDS: 0.9% Normal Saline 1,000 ML 125 ML IV (21:45)
[2022-08-15] MEDS: Atorvastatin Calcium 40 MG Tablet PO (21:47)
[2022-08-15] MEDS: buPROPion (SR) 150 MG Tablet.SA PO (21:47)
[2022-08-15] MEDS: DOXEPIN HCL 50 MG CAPSULE 100 MG PO (21:47)
[2022-08-15] MEDS: MELATONIN 10 MG TABLET PO (21:47)
[2022-08-15] MEDS: Potassium Chloride 10mEq/100mL 10 MEQ/100 ML IV.SOLN. 100 MEQ IV BOLUS (22:29)
[2022-08-15 22:37] LABS: Hematocrit 20.6 % (37-47)
[2022-08-16] VITALS (85 sets, daily range): BP systolic 60–133; BP diastolic 43–87; PULSE 91–144; RESP 14–38; TEMP 36.4–38.6; O2SAT 82–100
[2022-08-16] MEDS: proCHLORPERazine 10 MG/2 ML Vial 5 MG IV (00:29)
[2022-08-16] MEDS: 0.9% Saline Lock 10 ML Syringe IV ×7 (00:30→21:11)
[2022-08-16] MEDS: Potassium Chloride 10mEq/100mL 10 MEQ/100 ML IV.SOLN. 100 MEQ IV BOLUS (00:40)
[2022-08-16] MEDS: LORazepam 2 MG/ML Syringe 1 MG IV (01:40)
--- NOTE | 2022-08-16 02:36 | NURSING ---
08/16/22@ 0231 No S&S of blood transfusion reaction after 15 minutes of infusing second unit of PRBCs. Lung sounds clear/ diminished. Will continue to monitor. Edvin Milton RN
--- NOTE | 2022-08-16 03:19 | RAD_ITS ---
EXAM: XR CHEST, 1 VIEW CLINICAL INDICATION: fever fever TECHNIQUE: Frontal view of the chest. This report was created using [employer] report generation technology. COMPARISON: CT scan chest 05/20/2020.. CT scan abdomen and pelvis 08/15/2022. FINDINGS: LUNGS AND PLEURAL SPACES: There is atelectasis in the lower lung slade bilaterally. No pneumothorax. No effusion. HEART: Unremarkable. Cardiac silhouette not enlarged. MEDIASTINUM: Central airways and mediastinal contour are unremarkable. BONES/JOINTS: There are old healed rib fractures bilaterally. SOFT TISSUES: Unremarkable. RAD/Chest 1 View (Portable) IMPRESSION: Atelectasis in the lower lung slade bilaterally. No demonstrated pulmonary infiltrates.. Electronically Signed: Andrei Alicia MD at 5:05 EDT Reading Location ID and State: [facility] / [place] , Service support ,
[2022-08-16] MEDS: 0.9% Normal Saline 1,000 ML 125 ML IV (03:45)
--- NOTE | 2022-08-16 03:45 | NURSING ---
left message for brother Lang to call ing regarding pt condition
[2022-08-16 03:53] LABS: Color, Urine Yellow (Yellow); Glucose, Dipstick Normal (Normal); Ketone-Dipstick 5 mg/dl (Negative); Leukocyte Esterase-Dipstick 25 /ul (Negative); Mucous, Urine 0 SEEN /hpf (<or=2+); Nitrite-Dipstick Negative (Negative); Occult Blood-Urine 150 /ul (Negative); Protein-Dipstick 15 mg/dl (Negative); Specific Gravity, Urine 1.015 (1.002-1.030); Squamous Epithelial Cells - UA 0 SEEN /hpf (5-10); Urine Bilirubin Dipstick Negative (Negative); Urine Clarity Clear (Clear); Urine Urobilinogen 1 mg/dl (Normal); Urine pH 6.5 (5.0 - 8.0)
[2022-08-16] MEDS: Furosemide 40 MG/4 ML Vial IV (03:58)
[2022-08-16 04:03] LABS: Bacteria 1+ /hpf (None Seen); Red Blood Cells-Urine 10-25 SEEN /hpf (0-5); White Blood Cells 0-5 SEEN /hpf (0-5)
--- NOTE | 2022-08-16 04:13 | RAD_ITS ---
EXAM: XR ABDOMEN, 1 VIEW CLINICAL INDICATION: OG placement. TECHNIQUE: Frontal supine view of the abdomen/pelvis. This report was created using [employer] report generation technology. COMPARISON: 07/30/2022. FINDINGS: LOWER THORAX: No acute pathology. GASTROINTESTINAL TRACT: Unremarkable. Non-obstructive. No bowel or stomach distention. ORGANS: Unremarkable as visualized. No organomegaly. No abnormal calcifications. BONES/JOINTS: No acute pathology. SOFT TISSUES: No acute pathology. TUBES, LINES AND DEVICES: OG tube tip is in the gastric antrum. RAD/Abdomen Single View (Portable) IMPRESSION: 1. Excellent placement of OG tube, tip is in the gastric antrum. 2. No acute abnormality in the abdomen and no other additional findings or changes when compared to 07/30/2022. Electronically Signed: Ryan Garcia MD at 8:36 EDT ,
[2022-08-16] MEDS: Succinylcholine Chloride 200 MG/10 ML SYRINGE 70 MG IV (04:15)
[2022-08-16] MEDS: Etomidate 20 MG/10 ML Vial 10 MG IV (04:15)
--- NOTE | 2022-08-16 04:24 | PCM.PN.BLA ---
Progress Note Intubation Indication: Indication: Impending respiratory failure secondary to inability to protect airway. Consent was not obtained as patients brother could not be reach over the phone and patient is encephalopathic. The patient was placed in the appropriate sniffing position. Preoxygenated sedation via ambu-bagging was provided for a minimum of 3 minutes. The patient had continuous cardiac as well as pulse oximetry monitoring during the procedure. Procedure sedation was provided by the administration of etomidate and succinylcholine. GlideScope laryngoscopy was then performed using a number 3 blade, which revealed a grade 1 view. A 7.5 mm endotracheal tube was visualized advancing between the cords to the level of 21 cm at the lip. The stylette was then removed and discarded. Tube placement was confirmed by fogging in the tube along with equal and bilateral breath sounds. Colorimetric change was visualized on the CO2 meter. The cuff was then inflated and the tube secured using a commercially available device. A good pulse oximetry waveform was seen on the monitor throughout the procedure. A portable chest x-ray has been ordered to confirm appropriate placement. The patient tolerated the procedure well. Procedures Hospitalists Procedures: [id number] Insert Emergency Airway
--- NOTE | 2022-08-16 04:35 | PCM.PN.BLA ---
Progress Note Patient with a fever. Patient about 3 hours ago received Ativan for agitation. Also patient previously was medicated with melatonin. Precedex previously ordered for patient thrashing in bed but it was not utilized. Also patient was previously placed in restraints. Nurse reports coffee ground emesis and patient not responding to voice commands. There is concern for aspiration. Patient was examined at bedside. Patient not responding to verbal commands but responds to deep sternal rubs with thrashing in bed. Lungs with wheezes and crackles. Lasix 40 mg IV push given. Patient intubated. Patient started on Unasyn for possible aspiration pneumonia.
--- NOTE | 2022-08-16 04:41 | RAD_ITS ---
STUDY: X-RAY CHEST REASON FOR EXAM: Female, 62 years old. et placement TECHNIQUE: AP portable. 4:40 AM. COMPARISON: 3:17 AM. FINDINGS: LINES/DEVICES: Tip of the endotracheal tube 2.5 cm above the jorje. NG tube tip in the stomach. LUNGS: No consolidation. The basilar opacities are decreased. No pneumothorax. MEDIASTINUM: Unremarkable. CARDIAC SILHOUETTE: Not enlarged. BONES AND SOFT TISSUES: Old rib fractures.. RAD/CXR for Line Placement IMPRESSION: Satisfactory ET tube position. Decreased basilar atelectasis. Electronically Signed: Heydi Witt MD at 7:33 EDT ,
[2022-08-16] MEDS: CHLORHEXIDINE GLUC 2% CLOTH 1 EACH TOWELETTE TOPICAL (05:00)
[2022-08-16] MEDS: Chlorhexidine 15 ML PO ×3 (05:12→21:10)
--- NOTE | 2022-08-16 05:39 | NURSING ---
brother called in and up dated on pt critical condition and gave permission for him to come in now and see pt
--- NOTE | 2022-08-16 05:59 | CON.PCM.CC_ITS ---
Assessment & Plan Assessment/Plan (1) Acute upper gastrointestinal bleeding: PLAN: Plan RECOMMENDATIONS: 1. Check H&H posttransfusion. 2. Continue PPI therapy. Await gastroenterology evaluation. 3. Continue empiric antimicrobials to cover for aspiration pneumonia. 4. Continue Levophed to maintain a mean arterial pressure at or above 65 mmHg. IMPRESSIONS: 1. Acute hypoxemic respiratory failure The patient was ultimately intubated after she became unresponsive and experienced an emesis event with immediate concern for aspiration. Accordingly, it is reasonable to continue the patient on empiric antimicrobials, while shanta iting infectious work-up. She will be continued on assist control mode of mechanical ventilation. FiO2 and PEEP will be weaned to maintain saturations at or above 90%. 2. Acute blood loss anemia with hemorrhagic shock The patient presented with abdominal pain and hematemesis and required transfusion of blood products due to worsening anemia. Plan to continue to monitor serial H&H and transfuse if hemoglobin drops below 7 g/dL. The patient has already been started on Protonix. She will receive additional IV fluids and vasopressors will be initiated, if clinically indicated. Gastroenterology consultation is pending. 3. History of CVA/hypertension/anxiety/depression/questionable COPD/hypothyroidism/tobacco dependency Complicates care, management, recovery and prognosis. As needed bronchodilator therapy can be utilized while intubated. Continue supportive measures as noted above. TIME: 37 minutes of critical care time, independent of procedures, was spent addressing the patient's acute hypoxemic respiratory failure, blood loss anemia, hemorrhagic shock, review of all data and collaboration with the care team. HPI Consult Data Date of Consult: 08/17/22 HPI Narrative Reason for Consultation: Blood Loss Anemia HPI Narrative: The patient is a 62 year old female, with a history as outlined below, who presented to the emergency department on August 15 via EMS with epigastric pain, nausea and hematemesis of approximately 3 days duration. History pertinent to her hospitalization was obtained primarily via chart review, the patient is currently intubated and sedated. According to the patient's brother, the patient does have a history of alcoholism, but apparently has been abstinent for the last month. She has a longstanding history of reflux disease. On presentation to the emergency department, the patient was noted to be afebrile but was tachycardic and tachypneic with hemodynamic instability. Initial laboratory evaluation revealed an elevated white blood cell count to 21,000. Hemoglobin was noted to be 7.7 g/dL. Platelet count was elevated at 657,000. Coagulation profile was unremarkable. Chemistry profile was notable for a potassium of 3.3 and normal creatinine. AST and ALT were within normal limits. CT abdomen/pelvis revealed thick-walled fluid-filled distal esophagus and hiatal hernia. Initial chest x-ray demonstrated no acute cardiopulmonary process. The patient was initially admitted to the progressive care unit, where she was placed on fluids and PPI therapy with gastroenterology consultation pending. Early this morning, the patient apparently became agitated and developed a feve r. The patient was initially managed with IV Ativan. Ultimately, the patient became less responsive and experienced an episode of emesis with concern for acute aspiration, leading to respiratory decompensation and the need for intubation. The patient was transferred to the medical intensive care unit. She became hypotensive, requiring the initiation of Levophed and central venous catheter placement. Her hemoglobin dropped to 6.0 g/dL, for which she received 2 and some packed red blood cells. [facility] Medical History Anemia Anxiety and depression Arthritis Asthma COPD (chronic obstructive pulmonary disease) Difficulty swallowing Emphysema lung Encounter for screening for malignant neoplasm of lung in current smoker with 30 pack year history or greater Gammopathy GERD (gastroesophageal reflux disease) History of back problems Hyperlipidemia Hypothyroidism Iron deficiency anemia due to chronic blood loss Left hemiplegia Nicotine abuse Osteoporosis Polycythemia vera Thrombocytosis Tobacco use disorder, continuous Home Medications atorvastatin 40 mg tablet 40 mg PO DAILY cholesterol 12/26/18 [History Last Taken 07/21/20] doxepin 100 mg capsule 100 mg PO QHS depression 12/10/19 [History Last Taken 07/21/20] paroxetine HCl 20 mg tablet 20 mg PO DAILY depression 12/10/19 [History Last Taken 07/21/20] bupropion HCl (smoking deter) 150 mg tablet,12 hr sustained-release(smoking deterrent) 150 mg PO BID depression 05/20/20 [History Last Taken 07/22/20] ergocalciferol (vitamin D2) 1,250 mcg (50,000 unit) capsule 50,000 units PO QMONTH supplement 05/20/20 [History Last Taken 07/09/20] melatonin 10 mg tablet,extended release,multiphase 10 mg PO QHS sleep 05/20/20 [History Last Taken 07/21/20] cyclobenzaprine 10 mg tablet 10 mg PO DAILY muscle spasm 07/16/20 [History Last Taken 07/21/20] famotidine 40 mg tablet 40 mg PO DAILY gerd 07/22/20 [History Last Taken Unknown] nicotine 7 mg/24 hr daily transdermal patch 7 mg TP DAILY smoking 07/22/20 [History Last Taken Unknown] acetaminophen 500 mg tablet 2 tab PO TID PRN Pain Or Fever #1 TAB 07/26/20 [Rx Last Taken Unknown] aspirin 81 mg tablet,delayed release 81 mg PO BID health maintenance ##0 07/26/20 [Rx Last Taken 07/18/20] pantoprazole 20 mg tablet,delayed release 20 mg PO BID #60 tabs 07/26/20 [Rx Last Taken Unknown] potassium chloride 20 mEq oral packet (Klor-Con) 20 meq PO DAILY 03/06/22 [History Last Taken Unknown] oxycodone-acetaminophen 5 mg-325 mg tablet (Percocet) 1 tab PO Q6H PRN pain 3 days #12 tabs 05/30/22 [Rx Last Taken Unknown] Allergy/AdvReac Type Severity Reaction Status Date / Time No Known Allergies Allergy Verified 08/15/22 21:14 Family History Mother Diabetes Cancer Family History other Surgical History History of right knee surgery right ankle surgery Social History Smoking Status: Current every day smoker tobacco type: cigarettes alcohol intake: never substance use type: does not use ROS Review of Systems ROS Unobtainable: due to endotracheal tube and due to mental status Physical Exam Const General Appearance: ill appearing, frail, intubated and patient mechanically ventilated HEENT normocephalic and head/scalp atraumatic Mouth: endotracheal tube in place and OG tube in place Eyes PERRL and EOMs intact bilaterally Neck supple General: trachea midline and CVC in place Chest inspection of chest normal Resp Auscultation: diminished lung sounds; Negative for rales, rhonchi or wheezes Cardio S1 normal heart sound and S2 normal heart sound Rate: tachycardic GI normal to inspection, nondistended, normoactive bowel sounds Extremity no clubbing, cyanosis or edema Skin no rashes or lesions noted Neuro Sensorium / Orientation: sedated on vent Lab / Micro Data Result Diagrams: 08/17/22 04:50 08/17/22 04:50 Labs: Laboratory Results - last 24 hr 08/15/22 16:20: PT 13.3, INR 1.0, APTT 25.4 08/15/22 16:20: Blood Type O POSITIVE, Antibody Screen NEGATIVE 08/15/22 16:20: WBC 21.2 H, RBC 3.42 L, Hgb 7.7 L, Hct 26.6 L, MCV 77.8 L, MCH 22.5 L, MCHC 28.9 L, RDW Std Deviation 51.5 H, RDW Coeff of Jeanine 18.2 H, Plt Count 657 H, MPV 9.1, Immature Gran % (Auto) 0.700, Neut % (Auto) 85.0 H, Lymph % (Auto) 4.0 L, [place] % (Auto) 10.1 H, Eos % (Auto) 0.0, Baso % (Auto) 0.2, Absolute Neuts (auto) 18.0 H, Absolute Lymphs (auto) 0.85, Nucleated RBC % 0, Differential Comment SCANNED, Diff Path Review May foll, Hypochromasia 3+, Ovalocytes 1+, Crenated Cell 1+, Schistocytes RARE 08/15/22 16:20: Sodium 143, Potassium 3.3 L, Chloride 106, Carbon Dioxide 29.0, Anion Gap 8, BUN 23 H, Creatinine 0.97, Estim Creat Clear Calc 43.75, Est GFR (MDRD) Af Amer 75, Est GFR (MDRD) Non-Af 62, BUN/Creatinine Ratio 23.7 H, Glucose 122 H, Calcium 8.2 L, Total Bilirubin 0.70, AST 19, ALT 19, Alkaline Phosphatase 141 H, Total Protein 6.1 L, Albumin 2.2 L, Globulin 3.9, Albumin/Globulin Ratio 0.6 L, Lipase 70 L 08/15/22 16:20: Magnesium 1.8 08/15/22 16:20: Crossmatch See Detail 08/15/22 16:20: Crossmatch See Detail 08/15/22 22:00: Hgb 6.0 L*, Hct 20.6 L 08/16/22 03:40: Urine Color Yellow, Urine Clarity Clear, Urine pH 6.5, Ur Specific [place] 1.015, Urine Protein 15 H, Urine Glucose (UA) Normal, Urine Ketones 5 H, Urine Occult Blood 150 H, Urine Nitrite Negative, Urine Bilirubin Negative, Urine Urobilinogen 1 H, Ur Leukocyte Esterase 25 H, Urine RBC 10-25 SEEN, Urine WBC 0-5 SEEN, Ur Squamous Epith Cells 0 SEEN, Urine Bacteria 1+, Urine Mucus 0 SEEN Rhythm Strip Rhythm Strip: Sinus Tach Rate: 113 Ectopy: None Radiology Impression Abdomen/Pelvis CT 08/15/22 18:19 IMPRESSION: 1. Thick-walled fluid-filled distal esophagus and hiatal hernia. This was not noted on prior CT of the chest dated 05/20/2022 ER on low dose lung screening study of 04/14/2022. Further follow-up with endoscopy or upper GI suggested. 2. Right renal cyst. 3. Increased rectal feces suggesting constipation. 4. Remote compression deformity of T10. 5. Left hip replacement. Electronically Signed: Rosalio Purdy DO at 20:37 EDT Reading Location ID and State: [facility] / [place] Tel [phone], Service support , Chest X-Ray 08/16/22 03:19 IMPRESSION: Atelectasis in the lower lung slade bilaterally. No demonstrated pulmonary infiltrates.. Electronically Signed: Andrei Alicia MD at 5:05 EDT Reading Location ID and State: [facility] / [place] , Service support , Charges/Coding Procedures Hospitalists Procedures: 38411 Critial Care 1st Hr
--- NOTE | 2022-08-16 06:32 | RAD_ITS ---
EXAM: XR CHEST, 1 VIEW CLINICAL INDICATION: central line placement TECHNIQUE: Frontal view of the chest. This report was created using [employer] report generation technology. COMPARISON: 08/16/2022 at 4:40 AM. FINDINGS: LUNGS AND PLEURAL SPACES: Pulmonary hypoinflation. No suspicious infiltrates. No pneumothorax. No effusion. HEART: Unremarkable. Cardiac silhouette not enlarged. MEDIASTINUM: Central airways and mediastinal contour are unremarkable. BONES/JOINTS: Old fractures of the bilateral rib cage. SOFT TISSUES: Unremarkable. TUBES, LINES AND DEVICES: Right IJ approach central line catheter tip is in the distal SVC. ET tube tip is near the jorje and facing right mainstem bronchus. OG tube tip and sidehole remain inside the gastric cavity. RAD/CXR for Line Placement IMPRESSION: 1. Satisfactory placement of right IJ approach central line catheter, tip is in the distal SVC. 2. No acute cardiopulmonary pathology. 3. Distal repositioning of ET tube, tip is close to the jorje and facing the right mainstem bronchus. 4. OG tube tip and sidehole remain inside the gastric cavity. Electronically Signed: Ryan Garcia MD at 8:35 EDT ,
[2022-08-16 06:37] LABS: Absolute Lymphocyte Count 2.11 X10^3/uL (0.83-4.51); Absolute Neutrophil Count 14.8 X10^3/uL (2.0-7.7); Basophil# 0.02 X10^3/uL; Basophil% 0.1 % (0-1); Hematocrit 29.2 % (37-47); Hemoglobin 9.3 g/dL (12.0-15.0); Lymphocyte # 2.11 X10^3/ul (0.83-4.51); Lymphocyte % 10.8 % (19-41); Mean Corp Hgb Conc 31.8 g/dL (32-36); Mean Corpuscular Hgb 26.1 pg (27.0-32.0); Monocyte# 2.43 X10^3/uL; Monocyte% 12.5 % (0-10); NRBC Flagged by Analyzer 0 % (0-5); Neutrophil # 14.77 X10^3/uL (2.7-7.7); Neutrophil % 75.8 % (47-70); POSITIVE DIFFERENTIAL YES; Platelet Count 421 K/mm3 (150-450); RBC Distribution Width CV 17.7 % (11.6-14.6); Red Blood Count 3.56 M/mm3 (4.2-5.4); White Blood Count 19.5 K/mm3 (4.4-11.0)
--- NOTE | 2022-08-16 06:41 | PN_ITS ---
Progress Note Central Venous Catheter Indication: Hypotension Consent was not obtained as this was an emergent procedure and patient was intubated. A time-out was completed verifying correct patient, procedure, site, positioning, and special equipment if applicable. The patient was placed in a dependent position appropriate for central line placement based on the vein to be cannulated. The patient's RIJ was prepped and draped in a sterile fashion. 1% lidocaine was used to anesthetize the surrounding skin area. A triple-lumen catheter was introduced into the RIJ using the Seldinger technique and under ultrasound guidance. The catheter was threaded smoothly over the guidewire and appropriate blood return was obtained. Each lumen of the catheter was evacuated of air and flushed with sterile saline. The catheter was then sutured in place to the skin and a sterile dressing applied. Chest x-ray to confirm appropriate positioning is pending. ULTRASOUND GUIDANCE STATEMENT (Vascular Access): I performed ultrasound image acquisition and interpretation for needle placement during the procedure. The vessel was identified and found to be free of thrombosis by compression technique. A safe point of entry was marked at the skin in an angle for axis was determined. The needle was guided by obtaining free-flowing fluid and by re al-time visualization. Procedures Hospitalists Procedures: 59608 Insert Non-tunnel CV Cath Multi Select Codes Hospitalists' Procedures Procedures: 06522 [place] [address] US Guide Vascular Access
[2022-08-16 06:42] LABS: Differential Indicated SCAN CRITERIA MET
[2022-08-16 06:55] LABS: Allen Test Positive; Base Excess -3 mmol/L (-2 to +2); Bicarbonate 22.1 mmol/L (22-26); Blood Gas Specimen Type ART; FI02 40; Mode AC; O2 Delivery Device Adult Vent; PEEP 5; PO2 75 mmHG (75-100); RR 14; SITE R Radial; SO2 95 % (95-99); Total Carbon Dioxide 23 mmol/L; Vt 380; pCO2 34.6 mmHg (35-45); pH 7.41 (7.35-7.45)
[2022-08-16 06:56] LABS: ALB/GLOB Ratio 0.6 RATIO (0.9-2.4); AST(SGOT) 18 U/L (15-37); Alanine Aminotransfer ALT/SGPT 15 U/L (13-56); Albumin, Serum 1.9 g/dL (3.2-5.0); Alkaline Phosphatase 100 U/L (45-117); Anion Gap 10 (5-15); BUN 34 mg/dL (7-18); BUN/Creat Ratio 38.6 RATIO (10-20); Chloride 114 mmol/L (98-107); Creatinine, Serum 0.88 mg/dL (0.55-1.02); EST Glomerular Filtration Rate 69 mL/min (>60); Est Glom Filt Rate - Afr Amer 84 mL/min (>60); Estimated Creatinine Clearance 48.22 ml/min; Globulin 3.1 g/dL (2.2-4.2); Glucose 101 mg/dL (74-106); Lipase 42 U/L (73-393); Potassium 3.4 mmol/L (3.5-5.1); Sodium Level 147 mmol/L (136-145)
--- NOTE | 2022-08-16 07:11 | PN.HOSP_ITS ---
Subjective Subjective Patient is a 62-year-old lady admitted with hematemesis. Hemoglobin on admission was 7.7, started on Protonix drip admitted to the intensive care unit for subsequent management. Patient apparently did receive Ativan for agitation resulting in patient becoming encephalopathic. Patient subsequently had to be intubated for airway protection Objective Data Objective Data Vital Signs: Vital Signs Temp Pulse Resp BP Pulse Ox O2 Del Method O2 Flow Rate 99.5 F H 110 H 21 H 77/57 L 100 Mechanical Ventilator 2 08/16/22 06:00 08/16/22 06:37 08/16/22 06:37 08/16/22 06:03 08/16/22 06:37 08/16/22 06:00 08/16/22 04:00 FiO2 40 08/16/22 06:37 Oxygen Flow Rate (L/min) 2 Oxygen Delivery Method Mechanical Ventilator Weight: 49.2 kg Body Mass Index (BMI) 20.2 Intake & Output: Intake and Output for Last 24 Hours 08/14/22 08/15/22 08/16/22 23:59 23:59 23:59 Intake Total 1427.92 / 1427.92 2362.99 / 2362.99 Output Total 800 / 800 Balance 1427.92 / 1427.92 1562.99 / 1562.99 Lab / Micro Data Result Diagrams: 08/16/22 06:10 08/16/22 06:10 Labs: Laboratory Results - last 24 hr 08/15/22 16:20: PT 13.3, INR 1.0, APTT 25.4 08/15/22 16:20: Blood Type O POSITIVE, Antibody Screen NEGATIVE 08/15/22 16:20: WBC 21.2 H, RBC 3.42 L, Hgb 7.7 L, Hct 26.6 L, MCV 77.8 L, MCH 22.5 L, MCHC 28.9 L, RDW Std Deviation 51.5 H, RDW Coeff of Jeanine 18.2 H, Plt Count 657 H, MPV 9.1, Immature Gran % (Auto) 0.700, Neut % (Auto) 85.0 H, Lymph % (Auto) 4.0 L, [place] % (Auto) 10.1 H, Eos % (Auto) 0.0, Baso % (Auto) 0.2, Absolute Neuts (auto) 18.0 H, Absolute Lymphs (auto) 0.85, Nucleated RBC % 0, Differential Comment SCANNED, Diff Path Review May foll, Hypochromasia 3+, Ovalocytes 1+, Crenated Cell 1+, Schistocytes RARE 08/15/22 16:20: Sodium 143, Potassium 3.3 L, Chloride 106, Carbon Dioxide 29.0, Anion Gap 8, BUN 23 H, Creatinine 0.97, Estim Creat Clear Calc 43.75, Est GFR (MDRD) Af Amer 75, Est GFR (MDRD) Non-Af 62, BUN/Creatinine Ratio 23.7 H, Glucose 122 H, Calcium 8.2 L, Total Bilirubin 0.70, AST 19, ALT 19, Alkaline Phosphatase 141 H, Total Protein 6.1 L, Albumin 2.2 L, Globulin 3.9, Albumin/Racheal bulin Ratio 0.6 L, Lipase 70 L 08/15/22 16:20: Magnesium 1.8 08/15/22 16:20: Crossmatch See Detail 08/15/22 16:20: Crossmatch See Detail 08/15/22 22:00: Hgb 6.0 L*, Hct 20.6 L 08/16/22 03:40: Urine Color Yellow, Urine Clarity Clear, Urine pH 6.5, Ur Specific [place] 1.015, Urine Protein 15 H, Urine Glucose (UA) Normal, Urine Ketones 5 H, Urine Occult Blood 150 H, Urine Nitrite Negative, Urine Bilirubin Negative, Urine Urobilinogen 1 H, Ur Leukocyte Esterase 25 H, Urine RBC 10-25 SEEN, Urine WBC 0-5 SEEN, Ur Squamous Epith Cells 0 SEEN, Urine Bacteria 1+, Urine Mucus 0 SEEN 08/16/22 06:10: WBC 19.5 H, RBC 3.56 L, Hgb 9.3 L, Hct 29.2 L, MCV 82.0 D, MCH 26.1 L, MCHC 31.8 L D, RDW Std Deviation 53.0 H, RDW Coeff of Jeanine 17.7 H, Plt Count 421, MPV 9.0, Immature Gran % (Auto) 0.800, Neut % (Auto) 75.8 H, Lymph % (Auto) 10.8 L, [place] % (Auto) 12.5 H, Eos % (Auto) 0.0, Baso % (Auto) 0.1, Absolute Neuts (auto) 14.8 H, Absolute Lymphs (auto) 2.11, Nucleated RBC % 0 08/16/22 06:10: Sodium 147 H, Potassium 3.4 L, Chloride 114 H, Carbon Dioxide 23.0, Anion Gap 10, BUN 34 H, Creatinine 0.88, Estim Creat Clear Calc 48.22, Est GFR (MDRD) Af Amer 84, Est GFR (MDRD) Non-Af 69, BUN/Creatinine Ratio 38.6 H, Glucose 101, Calcium 7.0 L, Total Bilirubin 1.50 H, AST 18, ALT 15, Alkaline P hosphatase 100, Total Protein 5.0 L, Albumin 1.9 L, Globulin 3.1, Albumin/Globulin Ratio 0.6 L, Lipase 42 L ABG Data ABG results: ABG 08/16/22 06:52 Specimen Type ART Sample Site R Radial pH 7.41 Bicarbonate Actual 22.1 Total CO2 23 Base Excess -3 L O2 Saturation 95 O2 % 40 ABG pCO2 34.6 L ABG pO2 75 Luis Test Positive Respiration Rate 14 O2 Delivery Device Adult Vent Vent Mode AC Tidal Volume 380 POC PEEP 5 Radiography Diagnostic Testing: Radiology Impression Abdomen/Pelvis CT 08/15/22 18:19 IMPRESSION: 1. Thick-walled fluid-filled distal esophagus and hiatal hernia. This was not noted on prior CT of the chest dated 05/20/2022 ER on low dose lung screening study of 04/14/2022. Further follow-up with endoscopy or upper GI suggested. 2. Right renal cyst. 3. Increased rectal feces suggesting constipation. 4. Remote compression deformity of T10. 5. Left hip replacement. Electronically Signed: Rosalio Purdy DO at 20:37 EDT Reading Location ID and State: [facility] / [place] Tel [phone], Service support , Chest X-Ray 08/16/22 03:19 IMPRESSION: Atelectasis in the lower lung slade bilaterally. No demonstrated pulmonary infiltrates.. Electronically Signed: Andrei Alicia MD at 5:05 EDT , Rhythm Strip Rhythm Strip: Sinus Tach Rate: 113 Ectopy: None Physical Exam Narrative GENERAL: Sedated on the vent HEENT: Atraumatic; normocephalic EYES; Anicteric, Normal Conjunctiva NECK; supple, normal thyroid, RESPIRATORY: Diminished to auscultation CARDIOVASCULAR: Regular S1 S2, GI: soft, normoactive bowel sounds, : No Renal angle tenderness; EXTREMITIES: No edema, no clubbing, MUSCULOSKELETAL: no muscle wasting NEURO: Sedated on the vent on the vent SKIN: No Rash Assessment & Plan Assessment/Plan (1) Epigastric pain: PLAN: Plan Patient is a 62-year-old lady admitted with hematemesis. Hemoglobin on admission was 7.7, started on Protonix drip admitted to the intensive care unit for subsequent management 1. Acute blood loss anemia ? Secondary to upper GI bleed. Patient has been admitted to the intensive care unit transfused with 2 unit PRBC subsequent serial H&H ordered 2. Upper GI bleed ? Patient presented with hematemesis started on Protonix drip currently being monitored in the intensive care unit. Consultation was placed toGI for possible endoscopic evaluation 3. Hypovolemic shock ? Secondary to above patient was managed with IV fluid resuscitation as well as pressor support with norepinephrine 4. Acute metabolic encephalopathy with impending respiratory failure ? Patient had to be intubated to protect her airway consult placed to critical care for vent management 5. Hypokalemia ? Secondary to GI losses from patient nausea vomiting corrected per protocol repeat potassium levels ordered 6. Essential hypertension ? Patient's hypertensives on hold in view of her hypovolemic shock 7. Dyslipidemia -Patient is on statin therapy, 8. Depression with anxiety ? On Paxil as well as olanzapine 9. Overlap syndrome?COPD and asthma ? Currently not in exacerbation aerosol treatments as needed 10. History of previous CVA ? With residual left upper extremity weakness and significant contractures 11. DVT prophylaxis -bilateral SCDs Charges/Coding Visit Charges Inpatient E&M: 33212 [facility] L3
[2022-08-16] MEDS: TITRATION PARAMETER CHANGE 1 EACH IV ×2 (07:20→21:10)
[2022-08-16] MEDS: Lactated Ringers 1,000 ML 999 ML IV (07:56)
[2022-08-16 08:27] LABS: Differential Comment SCANNED
--- NOTE | 2022-08-16 10:59 | PCM.CONS.GEN ---
Assessment & Plan Assessment/Plan (1) Anemia: PLAN: Her current acute blood loss anemia is likely secondary to lesion in upper GI tract. The differential diagnosis would be mildly Shen tear, erosive esophagitis, angiodysplasia associated with her cerebrovascular accident, side effects from paroxetine therapy, side effects from aspirin therapy. Recommended continue PPI drip at this time. I would not recommend octreotide at this time because she seems to be becoming more stable. (2) Esophageal thickening: PLAN: Thick-walled fluid-filled distal esophagus and hiatal hernia.? This was not noted on prior CT of the chest dated 05/20/2022 ER on low dose lung screening study of 04/14/2022.? She will need an upper endoscopy to evaluate upper GI tract. At this time she is having significant polyuria and her blood pressure is being maintained. We will continue PPI drip and as long as her hemoglobin stays stable, along with her blood pressure we will wait to perform an upper endoscopy. HPI Consult Data Date of Consult: 08/16/22 HPI Narrative Reason for Consultation: upper GI bleed HPI Narrative: ALISTIAR MUELLER, is a 62 F who presented to the ED with nausea vomiting since Wednesday.? She admitted to some coffee-ground material in her vomitus along with epigastric abdominal pain.? No melena.? No dysuria.? Her past medical history most notable for cerebrovascular disease, disabled following a stroke in 2014 left her with left hemiparesis and dysarthria, dyslipidemia, nicotine dependence active smoker for over 30 years. She has a history of blood loss anemia, EGD in July 2020 showed a grade 3 erosive esophagitis, gastritis with hemorrhage and a hiatus hernia.? Pathology showed squamous mucosa with extensive ulceration and marked acute inflammation.? A follow-up EGD was recommended then but appears patient did not follow through.? She has been on PPI therapy since. Along with except and a baby aspirin. [facility] Medical History Anemia Anxiety and depression Arthritis Asthma COPD (chronic obstructive pulmonary disease) Difficulty swallowing Emphysema lung Encounter for screening for malignant neoplasm of lung in current smoker with 30 pack year history or greater Gammopathy GERD (gastroesophageal reflux disease) History of back problems Hyperlipidemia Hypothyroidism Iron deficiency anemia due to chronic blood loss Left hemiplegia Nicotine abuse Osteoporosis Polycythemia vera Thrombocytosis Tobacco use disorder, continuous Home Medications atorvastatin 40 mg tablet 40 mg PO DAILY cholesterol 12/26/18 [History Last Taken 07/21/20] doxepin 100 mg capsule 100 mg PO QHS depression 12/10/19 [History Last Taken 07/21/20] paroxetine HCl 20 mg tablet 20 mg PO DAILY depression 12/10/19 [History Last Taken 07/21/20] bupropion HCl (smoking deter) 150 mg tablet,12 hr sustained-release(smoking deterrent) 150 mg PO BID depression 05/20/20 [History Last Taken 07/22/20] ergocalciferol (vitamin D2) 1,250 mcg (50,000 unit) capsule 50,000 units PO QMONTH supplement 05/20/20 [History Last Taken 07/09/20] melatonin 10 mg tablet,extended release,multiphase 10 mg PO QHS sleep 05/20/20 [History Last Taken 07/21/20] cyclobenzaprine 10 mg tablet 10 mg PO DAILY muscle spasm 07/16/20 [History Last Taken 07/21/20] famotidine 40 mg tablet 40 mg PO DAILY gerd 07/22/20 [History Last Taken Unknown] nicotine 7 mg/24 hr daily transdermal patch 7 mg TP DAILY smoking 07/22/20 [History Last Taken Unknown] acetaminophen 500 mg tablet 2 tab PO TID PRN Pain Or Fever #1 TAB 07/26/20 [Rx Last Taken Unknown] aspirin 81 mg tablet,delayed release 81 mg PO BID health maintenance ##0 07/26/20 [Rx Last Taken 07/18/20] pantoprazole 20 mg tablet,delayed release 20 mg PO BID #60 tabs 07/26/20 [Rx Last Taken Unknown] potassium chloride 20 mEq oral packet (Klor-Con) 20 meq PO DAILY 03/06/22 [History Last Taken Unknown] oxycodone-acetaminophen 5 mg-325 mg tablet (Percocet) 1 tab PO Q6H PRN pain 3 days #12 tabs 05/30/22 [Rx Last Taken Unknown] Allergy/AdvReac Type Severity Reaction Status Date / Time No Known Allergies Allergy Verified 08/15/22 21:14 Family History Mother Diabetes Cancer Family History other Surgical History History of right knee surgery right ankle surgery Social History Smoking Status: Current every day smoker tobacco type: cigarettes alcohol intake: never substance use type: does not use ROS Review of Systems ROS Unobtainable: due to endotracheal tube and due to mental status Physical Exam Narrative GENERAL: Sedated on the vent HEENT: Atraumatic; normocephalic EYES; Anicteric, Normal Conjunctiva NECK; supple, normal thyroid, RESPIRATORY: Diminished to auscultation CARDIOVASCULAR: Regular S1 S2, GI: soft, normoactive bowel sounds, : No Renal angle tenderness; EXTREMITIES: No edema, no clubbing, MUSCULOSKELETAL: no muscle wasting NEURO: Sedated on the vent on the vent SKIN: No Rash Lab / Micro Data Result Diagrams: 08/16/22 06:10 08/16/22 06:10 Labs: Laboratory Results - last 24 hr 08/15/22 16:20: PT 13.3, INR 1.0, APTT 25.4 08/15/22 16:20: Blood Type O POSITIVE, Antibody Screen NEGATIVE 08/15/22 16:20: WBC 21.2 H, RBC 3.42 L, Hgb 7.7 L, Hct 26.6 L, MCV 77.8 L, MCH 22.5 L, MCHC 28.9 L, RDW Std Deviation 51.5 H, RDW Coeff of Jeanine 18.2 H, Plt Count 657 H, MPV 9.1, Immature Gran % (Auto) 0.700, Neut % (Auto) 85.0 H, Lymph % (Auto) 4.0 L, [place] % (Auto) 10.1 H, Eos % (Auto) 0.0, Baso % (Auto) 0.2, Absolute Neuts (auto) 18.0 H, Absolute Lymphs (auto) 0.85, Nucleated RBC % 0, Differential Comment SCANNED, Diff Path Review May foll, Hypochromasia 3+, Ovalocytes 1+, Crenated Cell 1+, Schistocytes RARE 08/15/22 16:20: Sodium 143, Potassium 3.3 L, Chloride 106, Carbon Dioxide 29.0, Anion Gap 8, BUN 23 H, Creatinine 0.97, Estim Creat Clear Calc 43.75, Est GFR (MDRD) Af Amer 75, Est GFR (MDRD) Non-Af 62, BUN/Creatinine Ratio 23.7 H, Glucose 122 H, Calcium 8.2 L, Total Bilirubin 0.70, AST 19, ALT 19, Alkaline Phosphatase 141 H, Total Protein 6.1 L, Albumin 2.2 L, Globulin 3.9, Albumin/Globulin Ratio 0.6 L, Lipase 70 L 08/15/22 16:20: Magnesium 1.8 08/15/22 16:20: Crossmatch See Detail 08/15/22 16:20: Crossmatch See Detail 08/15/22 22:00: Hgb 6.0 L*, Hct 20.6 L 08/16/22 03:40: Urine Color Yellow, Urine Clarity Clear, Urine pH 6.5, Ur Specific [place] 1.015, Urine Protein 15 H, Urine Glucose (UA) Normal, Urine Ketones 5 H, Urine Occult Blood 150 H, Urine Nitrite Negative, Urine Bilirubin Negative, Urine Urobilinogen 1 H, Ur Leukocyte Esterase 25 H, Urine RBC 10-25 SEEN, Urine WBC 0-5 SEEN, Ur Squamous Epith Cells 0 SEEN, Urine Bacteria 1+, Urine Mucus 0 SEEN 08/16/22 06:10: WBC 19.5 H, RBC 3.56 L, Hgb 9.3 L, Hct 29.2 L, MCV 82.0 D, MCH 26.1 L, MCHC 31.8 L D, RDW Std Deviation 53.0 H, RDW Coeff of Jeanine 17.7 H, Plt Count 421, MPV 9.0, Immature Gran % (Auto) 0.800, Neut % (Auto) 75.8 H, Lymph % (Auto) 10.8 L, [place] % (Auto) 12.5 H, Eos % (Auto) 0.0, Baso % (Auto) 0.1, Absolute Neuts (auto) 14.8 H, Absolute Lymphs (auto) 2.11, Nucleated RBC % 0, Differential Comment SCANNED, Diff Path Review March08/16/22 06:10: Sodium 147 H, Potassium 3.4 L, Chloride 114 H, Carbon Dioxide 23.0, Anion Gap 10, BUN 34 H, Creatinine 0.88, Estim Creat Clear Calc 48.22, Est GFR (MDRD) Af Amer 84, Est GFR (MDRD) Non-Af 69, BUN/Creatinine Ratio 38.6 H, Glucose 101, Calcium 7.0 L, Total Bilirubin 1.50 H, AST 18, ALT 15, Alkaline Phosphatase 100, Total Protein 5.0 L, Albumin 1.9 L, Globulin 3.1, Albumin/Globulin Ratio 0.6 L, Lipase 42 L ABG Data ABG results: ABG 08/16/22 06:52 Specimen Type ART Sample Site R Radial pH 7.41 Bicarbonate Actual 22.1 Total CO2 23 Base Excess -3 L O2 Saturation 95 O2 % 40 ABG pCO2 34.6 L ABG pO2 75 Luis Test Positive Respiration Rate 14 O2 Delivery Device Adult Vent Vent Mode AC Tidal Volume 380 POC PEEP 5 Rhythm Strip Rhythm Strip: Sinus Tach Rate: 113 Ectopy: None Radiology Impression Abdomen/Pelvis CT 08/15/22 18:19 IMPRESSION: 1. Thick-walled fluid-filled distal esophagus and hiatal hernia. This was not noted on prior CT of the chest dated 05/20/2022 ER on low dose lung screening study of 04/14/2022. Further follow-up with endoscopy or upper GI suggested. 2. Right renal cyst. 3. Increased rectal feces suggesting constipation. 4. Remote compression deformity of T10. 5. Left hip replacement. Electronically Signed: Rosalio Purdy DO at 20:37 EDT , Chest X-Ray 08/16/22 03:19 IMPRESSION: Atelectasis in the lower lung slade bilaterally. No demonstrated pulmonary infiltrates.. Electronically Signed: Andrei Alicia MD at 5:05 EDT , KUB X-Ray 08/16/22 04:13 IMPRESSION: 1. Excellent placement of OG tube, tip is in the gastric antrum. 2. No acute abnormality in the abdomen and no other additional findings or changes when compared to 07/30/2022. Electronically Signed: Ryan Garcia MD at 8:36 EDT , Chest X-Ray 08/16/22 04:41 IMPRESSION: Satisfactory ET tube position. Decreased basilar atelectasis. Electronically Signed: Heydi Witt MD at 7:33 EDT , Chest X-Ray 08/16/22 06:32 IMPRESSION: 1. Satisfactory placement of right IJ approach central line catheter, tip is in the distal SVC. 2. No acute cardiopulmonary pathology. 3. Distal repositioning of ET tube, tip is close to the jorje and facing the right mainstem bronchus. 4. OG tube tip and sidehole remain inside the gastric cavity. Electronically Signed: Ryan Garcia MD at 8:35 EDT , Charges/Coding Visit Charges Inpatient E&M: 73214 Init Hosp L2
--- NOTE | 2022-08-16 12:30 | NURSING ---
per pt's sister Dian, pt was a pt at [facility] several years ago and they found a lump in her throat, she was having problems swallowing. pt was to f/u as outpt. Dian states pt decided to not do the follow-up She is concerned this is part of her sisters current problems.
[2022-08-16] MEDS: Acetaminophen 325 MG Suppository RC (14:15)
[2022-08-16 21:48] LABS: Magnesium 1.6 mg/dL (1.6-2.6); Phosphorus 2.1 mg/dL (2.5-4.9)
[2022-08-17] VITALS (72 sets, daily range): BP systolic 59–152; BP diastolic 44–84; PULSE 68–125; RESP 14–34; TEMP 36.9–37.6; O2SAT 84–99
[2022-08-17 04:55] LABS: Absolute Lymphocyte Count 1.95 X10^3/uL (0.83-4.51); Absolute Neutrophil Count 11.9 X10^3/uL (2.0-7.7); Basophil# 0.11 X10^3/uL; Basophil% 0.7 % (0-1); Eosinophil# 0.12 X10^3/uL; Eosinophils% 0.8 % (0-5); Hemoglobin 8.8 g/dL (12.0-15.0); Lymphocyte # 1.95 X10^3/ul (0.83-4.51); Lymphocyte % 12.5 % (19-41); Mean Corp Hgb Conc 31.4 g/dL (32-36); Mean Corpuscular Hgb 25.8 pg (27.0-32.0); Mean Corpuscular Volume 82.1 fL (81-99); Mean Platelet Vol. 9.3 fl (6.2-12.0); Monocyte# 1.43 X10^3/uL; Monocyte% 9.1 % (0-10); NRBC Flagged by Analyzer 0 % (0-5); Neutrophil # 11.94 X10^3/uL (2.7-7.7); Neutrophil % 76.3 % (47-70); Platelet Count 346 K/mm3 (150-450); RBC Distribution Width CV 18.2 % (11.6-14.6); RBC Distribution Width SD 54.1 fl (35.1-43.9); Red Blood Count 3.41 M/mm3 (4.2-5.4); White Blood Count 15.6 K/mm3 (4.4-11.0)
[2022-08-17 05:17] LABS: ALB/GLOB Ratio 0.5 RATIO (0.9-2.4); AST(SGOT) 18 U/L (15-37); Alanine Aminotransfer ALT/SGPT 14 U/L (13-56); Albumin, Serum 1.6 g/dL (3.2-5.0); Alkaline Phosphatase 109 U/L (45-117); Anion Gap 7 (5-15); BUN 19 mg/dL (7-18); BUN/Creat Ratio 26.7 RATIO (10-20); Calcium,Total 7.4 mg/dL (8.5-10.1); Chloride 116 mmol/L (98-107); Creatinine, Serum 0.71 mg/dL (0.55-1.02); EST Glomerular Filtration Rate 89 mL/min (>60); Est Glom Filt Rate - Afr Amer 107 mL/min (>60); Estimated Creatinine Clearance 59.77 ml/min; Globulin 3.3 g/dL (2.2-4.2); Glucose 112 mg/dL (74-106); Potassium 2.9 mmol/L (3.5-5.1); Protein, Total 4.9 g/dL (6.4-8.2); Sodium Level 150 mmol/L (136-145)
--- NOTE | 2022-08-17 06:19 | PN.CC_ITS ---
Assessment & Plan Assessment/Plan (1) Acute upper gastrointestinal bleeding: PLAN: Plan RECOMMENDATIONS: 1. Continue to monitor H&H and transfuse if hemoglobin drops below 7 g/dL. 2. Continue empiric antimicrobials. 3. Start scheduled bronchodilators. 4. Wean Levophed to maintain a mean arterial pressure at or above 65 mmHg. 5. Continue PPI therapy. Gastroenterology is following to assist with medical management. 6. Start D5W and potassium repletion. IMPRESSIONS: 1. Acute hypoxemic respiratory failure The patient was ultimately intubated after she became unresponsive and experienced an emesis event with immediate concern for aspiration. Accordingly, it is reasonable to continue the patient on empiric antimicrobials, while awaiting infectious work-up. She will be continued on assist control mode of mechanical ventilation. FiO2 and PEEP will be weaned to maintain saturations at or above 90%. 2. Acute blood loss anemia with hemorrhagic shock The patient presented with abdominal pain and hematemesis and required transfusion of blood products due to worsening anemia. Plan to continue to monitor serial H&H and transfuse if hemoglobin drops below 7 g/dL. Continue Protonix as ordered. The patient will be maintained on Levophed to maintain a mean arterial pressure at or above 65 mmHg. Gastroenterology is following to assist with medical management. 3. Hypernatremia/hypokalemia Start D5W with potassium repletion. Continue to monitor chemistry profile daily. 4. History of CVA/hypertension/anxiety/depression/questionable COPD/hyp othyroidism/tobacco dependency Complicates care, management, recovery and prognosis. Continue bronchodilators as ordered. TIME: 33 minutes of critical care time, independent of procedures, was spent addressing the patient's acute hypoxemic respiratory failure, blood loss anemia, hemorrhagic shock, review of all data and collaboration with the care team. Subjective Subjective The patient was seen and examined at the bedside this morning. Events from the last 24 hours have been reviewed. The patient is currently afebrile and maintaining appropriate oxygen saturations on assist control mode of mechanical ventilation with an FiO2 requirement of 30%. The patient is currently he modynamically stable with a Levophed requirement of 3 mcg/min. Nursing staff did report thick endotracheal tube secretions. The patient failed her spontaneous awakening trial this morning due to significant agitation. She is currently documented to be overall net +2.8 L for the hospitalization. Hemoglobin is stable at 8.8 g/dL this morning. Sodium is elevated at 150 with a potassium of 2.9, chloride of 116 and normal creatinine. Objective Data Objective Data The patient's most recent lab work, culture data and imaging studies have all been personally reviewed. Blood, urine and sputum cultures are pending. Vital Signs: Vital Signs Temp Pulse Resp BP Pulse Ox O2 Del Method O2 Flow Rate 99 F 72 14 115/75 97 Mechanical Ventilator 2 08/17/22 05:00 08/17/22 05:50 08/17/22 05:50 08/17/22 05:00 08/17/22 05:50 08/17/22 05:00 08/16/22 04:00 FiO2 30 08/17/22 05:50 Oxygen Flow Rate (L/min) 2 Oxygen Delivery Method Mechanical Ventilator Weight: 102 lb 11.767 oz Body Mass Index (BMI) 20.2 Intake & Output: Intake and Output for Last 24 Hours 08/15/22 08/16/22 08/17/22 23:59 23:59 23:59 Intake Total 1427.92 / 1427.92 4513.79 / 4570.37 441.95 / 441.95 Output Total 3245 / 3245 350 / 350 Balance 1427.92 / 1427.92 1268.79 / 1325.37 91.95 / 91.95 Lab / Micro Data Attestation: I reviewed the patient's lab results. Result Diagrams: 08/17/22 04:50 08/17/22 04:50 Labs: Laboratory Results - last 24 hr 08/15/22 16:20: Crossmatch See Detail 08/16/22 06:10: WBC 19.5 H, RBC 3.56 L, Hgb 9.3 L, Hct 29.2 L, MCV 82.0 D, MCH 26.1 L, MCHC 31.8 L D, RDW Std Deviation 53.0 H, RDW Coeff of Jeanine 17.7 H, Plt Count 421, MPV 9.0, Immature Gran % (Auto) 0.800, Neut % (Auto) 75.8 H, Lymph % (Auto) 10.8 L, [place] % (Auto) 12.5 H, Eos % (Auto) 0.0, Baso % (Auto) 0.1, Absolute Neuts (auto) 14.8 H, Absolute Lymphs (auto) 2.11, Nucleated RBC % 0, Differential Comment SCANNED, Diff Path Review March08/16/22 06:10: Sodium 147 H, Potassium 3.4 L, Chloride 114 H, Carbon Dioxide 23.0, Anion Gap 10, BUN 34 H, Creatinine 0.88, Estim Creat Clear Calc 48.22, Est GFR (MDRD) Af Amer 84, Est GFR (MDRD) Non-Af 69, BUN/Creatinine Ratio 38.6 H, Glucose 101, Calcium 7.0 L, Total Bilirubin 1.50 H, AST 18, ALT 15, Alkaline Phosphatase 100, Total Protein 5.0 L, Albumin 1.9 L, Globulin 3.1, Albumin/Globulin Ratio 0.6 L, Lipase 42 L 08/16/22 21:20: Phosphorus 2.1 L, Magnesium 1.6 08/17/22 04:50: WBC 15.6 H, RBC 3.41 L, Hgb 8.8 L, Hct 28.0 L, MCV 82.1, MCH 2 5.8 L, MCHC 31.4 L, RDW Std Deviation 54.1 H, RDW Coeff of Jeanine 18.2 H, Plt Count 346, MPV 9.3, Immature Gran % (Auto) 0.600, Neut % (Auto) 76.3 H, Lymph % (Auto) 12.5 L, [place] % (Auto) 9.1, Eos % (Auto) 0.8, Baso % (Auto) 0.7, Absolute Neuts (auto) 11.9 H, Absolute Lymphs (auto) 1.95, Nucleated RBC % 0 08/17/22 04:50: Sodium 150 H, Potassium 2.9 L, Chloride 116 H, Carbon Dioxide 27.0, Anion Gap 7, BUN 19 H, Creatinine 0.71, Estim Creat Clear Calc 59.77, Est GFR (MDRD) Af Amer 107, Est GFR (MDRD) Non-Af 89, BUN/Creatinine Ratio 26.7 H, Glucose 112 H, Calcium 7.4 L, Total Bilirubin 0.80, AST 18, ALT 14, Alkaline Phosphatase 109, Total Protein 4.9 L, Albumin 1.6 L, Globulin 3.3, Albumin/Globulin Ratio 0.5 L Micro: Microbiology 08/16/22 04:30 Sputum, Induced/Lukens Gram Stain - Final ABG Data ABG results: ABG 08/16/22 06:52 Specimen Type ART Sample Site R Radial pH 7.41 Bicarbonate Actual 22.1 Total CO2 23 Base Excess -3 L O2 Saturation 95 O2 % 40 ABG pCO2 34.6 L ABG pO2 75 Luis Test Positive Respiration Rate 14 O2 Delivery Device Adult Vent Vent Mode AC Tidal Volume 380 POC PEEP 5 Radiography Diagnostic Testing: Radiology Impression KUB X-Ray 08/16/22 04:13 IMPRESSION: 1. Excellent placement of OG tube, tip is in the gastric antrum. 2. No acute abnormality in the abdomen and no other additional findings or changes when compared to 07/30/2022. Electronically Signed: Ryan Garcia MD at 8:36 EDT , Chest X-Ray 08/16/22 04:41 IMPRESSION: Satisfactory ET tube position. Decreased basilar atelectasis. Electronically Signed: Heydi Witt MD at 7:33 EDT , Chest X-Ray 08/16/22 06:32 IMPRESSION: 1. Satisfactory placement of right IJ approach central line catheter, tip is in the distal SVC. 2. No acute cardiopulmonary pathology. 3. Distal repositioning of ET tube, tip is close to the jorje and facing the right mainstem bronchus. 4. OG tube tip and sidehole remain inside the gastric cavity. Electronically Signed: Ryan Garcia MD at 8:35 EDT , Rhythm Strip Rhythm Strip: Sinus Tach Rate: 113 Ectopy: None Physical Exam Const General Appearance: ill appearing, frail, intubated and patient mechanically ventilated HEENT normocephalic and head/scalp atraumatic Mouth: endotracheal tube in place and OG tube in place Eyes PERRL and EOMs intact bilaterally Neck supple General: trachea midline and CVC in place Chest inspection of chest normal Resp Auscultation: diminished lung sounds; Negative for rales, rhonchi or wheezes Cardio regular rate, regular rhythm, S1 normal heart sound and S2 normal heart sound GI normal to inspection, nondistended, normoactive bowel sounds Extremity no clubbing, cyanosis or edema Skin no rashes or lesions noted Neuro Sensorium / Orientation: sedated on vent Charges/Coding Procedures Hospitalists Procedures: 31395 Critial Care 1st Hr
[2022-08-17] MEDS: TITRATION PARAMETER CHANGE 1 EACH IV (06:34)
--- NOTE | 2022-08-17 07:41 | PCM.PN.HOSP ---
Subjective Subjective Follow-up on acute metabolic encephalopathy/acute GI bleed/blood loss anemia: Patient was seen and examined. She remains intubated, on mechanical ventilator. Overnight, OG tube has lots of output. She has intermittent periods of agitation. She is on a Precedex drip, Protonix and Levophed drip. NG has brownish aspirate Objective Data Objective Data Vital Signs: Vital Signs Temp Pulse Resp BP Pulse Ox O2 Del Method O2 Flow Rate 99 F 74 14 115/75 97 Mechanical Ventilator 2 08/17/22 05:00 08/17/22 06:30 08/17/22 06:30 08/17/22 05:00 08/17/22 06:30 08/17/22 05:00 08/16/22 04:00 FiO2 24 08/17/22 06:30 Oxygen Flow Rate (L/min) 2 Oxygen Delivery Method Mechanical Ventilator Weight: 46.6 kg Body Mass Index (BMI) 20.2 Intake & Output: Intake and Output for Last 24 Hours 08/15/22 08/16/22 08/17/22 23:59 23:59 23:59 Intake Total 1427.92 / 1427.92 4513.79 / 4570.37 489.58 / 489.58 Output Total 3245 / 3245 550 / 550 Balance 1427.92 / 1427.92 1268.79 / 1325.37 -60.42 / -60.42 Lab / Micro Data Result Diagrams: 08/17/22 04:50 08/17/22 04:50 Labs: Laboratory Results - last 24 hr 08/16/22 06:10: Differential Comment SCANNED, Diff Path Review March08/16/22 21:20: Phosphorus 2.1 L, Magnesium 1.6 08/17/22 04:50: WBC 15.6 H, RBC 3.41 L, Hgb 8.8 L, Hct 28.0 L, MCV 82.1, MCH 25.8 L, MCHC 31.4 L, RDW Std Deviation 54.1 H, RDW Coeff of Jeanine 18.2 H, Plt Count 346, MPV 9.3, Immature Gran % (Auto) 0.600, Neut % (Auto) 76.3 H, Lymph % (Auto) 12.5 L, [place] % (Auto) 9.1, Eos % (Auto) 0.8, Baso % (Auto) 0.7, Absolute Neuts (auto) 11.9 H, Absolute Lymphs (auto) 1.95, Nucleated RBC % 0 08/17/22 04:50: Sodium 150 H, Potassium 2.9 L, Chloride 116 H, Carbon Dioxide 27.0, Anion Gap 7, BUN 19 H, Creatinine 0.71, Estim Creat Clear Calc 59.77, Est GFR (MDRD) Af Amer 107, Est GFR (MDRD) Non-Af 89, BUN/Creatinine Ratio 26.7 H, Glucose 112 H, Calcium 7.4 L, Total Bilirubin 0.80, AST 18, ALT 14, Alkaline Phosphatase 109, Total Protein 4.9 L, Albumin 1.6 L, Globulin 3.3, Albumin/Globulin Ratio 0.5 L Micro: Microbiology 08/16/22 04:30 Sputum, Induced/Lukens Gram Stain - Final Radiography Diagnostic Testing: Radiology Impression KUB X-Ray 08/16/22 04:13 IMPRESSION: 1. Excellent placement of OG tube, tip is in the gastric antrum. 2. No acute abnormality in the abdomen and no other additional findings or changes when compared to 07/30/2022. Electronically Signed: Ryan Garcia MD at 8:36 EDT , Chest X-Ray 08/16/22 06:32 IMPRESSION: 1. Satisfactory placement of right IJ approach central line catheter, tip is in the distal SVC. 2. No acute cardiopulmonary pathology. 3. Distal repositioning of ET tube, tip is close to the jorje and facing the right mainstem bronchus. 4. OG tube tip and sidehole remain inside the gastric cavity. Electronically Signed: Ryan Garcia MD at 8:35 EDT , Rhythm Strip Rhythm Strip: Sinus Tach Rate: 113 Ectopy: None Physical Exam Narrative Physical exam: General: Sedated, on mechanical ventilator, per/OG tube in situ, appears chronically ill HEENT: Atraumatic Oral: Moist Mucosa Neck: Supple Lungs: Diminished to auscultation Cardiovascular: HS I+II, regular, no murmurs Abdomen: Bowel Sounds Present, Soft, Non Tender Extremities: No edema Skin: No rashes, No breakdown Neurological: Grossly intact Psych/Mental Status: Appropriate Assessment & Plan Assessment/Plan (1) Acute GI bleeding: PLAN: Plan 1. Acute hypoxic respiratory failure, s/p intubation for primary airway protection Concern for aspiration pneumonitis; chest x-ray showed basilar atelectasis Continue mechanical ventilator; mass spectrometry specialist following Continue on IV Unasyn 2. Acute GI bleed secondary to upper GI bleed from probable Leena-Shen tear CT of the abdomen pelvis on 08/15/2022 showed fluid-filled distal esophagus and hiatal hernia GI consulted, EGD planned when hemodynamically stable. Continue on IV PPI 3. Acute blood loss anemia secondary to #2, status post 2 units of packed RBCs Hb today is 8.8, will continue to trend Will transfuse for hemoglobin less than 7 4. Shock likely secondary to hypovolemic shock, remains on Levophed Continue to wean off for MAP more than 65 5. Acute metabolic encephalopathy, s/p intubation 6. Hypokalemia/hypomagnesemia/hypophosphatemia, replaced, recheck in a.m. 7. Hypertension, occasions on hold on account of shock 8. Anxiety/depression, home meds on hold 9. COPD/asthma, not in acute exacerbation, on as needed breathing treatments 10. History of CVA with chronic left upper extremity weakness/hyperlipidemia Aspirin on hold on account of GI bleed Hold statins for now 11. DVT prophylaxis?on SCDs Charges/Coding Visit Charges Inpatient E&M: 63230 Subs Hosp L3
[2022-08-17] MEDS: Potassium Chloride 10mEq/100mL 10 MEQ/100 ML IV.SOLN. 100 MEQ IV BOLUS ×4 (07:44→11:11)
[2022-08-17] MEDS: Dexmedetomidine 1,000 mcg in 0.9% NS 240 mL 17.5 MCG CONT INF ×2 (08:01→22:20)
--- NOTE | 2022-08-17 09:25 | CASEMGMT ---
JOE COLES Face to Face with Dian castillo, for initial transition planning/care coordination assessment, as patient is currently intubated. JOE COLES introduced self and role at [facility]. Patient lying in bed. SisterDian, willing to participate in assessment and is able to answer all questions appropriately. Care providers, pharmacy, and demographics verified. Will monitor patient's course of treatment and progress with therapy for safe discharge disposition. Sister states she has no further needs or concerns at this time. CM to follow for discharge planning needs that may arise. PCP: Sam Specialists: unsure Preferred Pharmacy: [facility] Insurance: [employer] Prescription Benefit: yes Living Will/HPOA: sister unsure LNOK: sister, brother Living Arrangements: Patient lives alone in a mobile home with 3 steps and railing to enter the home. Patient is independent at home. Per chart, boyfrienmarcello Beard assists with bathing. Patient smokes and per sister consumes alcohol daily. Transportation: friends, brother DME/HHC: Per past visit assessment, patient has cane, walker, and crutches at home. Patient has previously been [facility] Patient has had [facility] for HHC in the past. Disposition Plan: TBD by course of treatment and progress with therapy. Faustina GEORGE, RN, CM
[2022-08-17] MEDS: Chlorhexidine 15 ML PO ×2 (10:07→21:41)
[2022-08-17] MEDS: CHLORHEXIDINE GLUC 2% CLOTH 1 EACH TOWELETTE TOPICAL (10:32)
[2022-08-17 13:56] LABS: Pathologist Review Reviewed
[2022-08-17 13:57] LABS: Pathologist Review Reviewed
--- NOTE | 2022-08-17 14:24 | CHAPLAIN ---
Type of Pastoral Visit ___ Initial Visit ___ Follow-up Visit ___ On-call Visit ___ General Patient Visit ___ Spiritual Assessment ___ Family Conference ___ Bereavement ___ Rapid Response ___ Code Blue ___ Other (describe below) Pastoral Care Referral From ___ Patient ___ Family ___ Nurse ___ Physician ___ Pipe Recovery Specialist ___ [employer] Programmer ___ Other (describe below) Sacrament/Intervention ___ Active listening ___ Anointing ___ Moravian ___ Bereavement ___ Communion ___ Lulu exploration ___ ___ Life review ___ Prayer ___ Reconciliation ___ Sacrament of Sick ___ Supportive presence ___ Wedding ___ Other (describe below) Pastoral Comments met this patient earlier this morning; pt is intubated; sister and niece of pt are with her; niece is a medical employee of this hospital; pt is unable to talk but does nod her head to answer questions; offer of support and admonition to be still, rest, and feel the presence of God hold her; pt welcomes a prayer by her own nod; held hand of pt and interacted with pt and her family; offer of further support and availability
--- NOTE | 2022-08-17 17:23 | PCM.PROGNOTE ---
Subjective Subjective She still remains intubated and sedated. She still maintains the need for Protonix drip and Levophed drip. Objective Data Objective Data Vital Signs: Vital Signs Temp Pulse Resp BP Pulse Ox O2 Del Method O2 Flow Rate 99.5 F H 70 14 112/65 96 Mechanical Ventilator 2 08/17/22 17:00 08/17/22 17:00 08/17/22 17:00 08/17/22 17:15 08/17/22 17:00 08/17/22 17:00 08/16/22 04:00 FiO2 30 08/17/22 17:00 Oxygen Flow Rate (L/min) 2 Oxygen Delivery Method Mechanical Ventilator Weight: 102 lb 11.767 oz Body Mass Index (BMI) 20.2 Intake & Output: Intake and Output for Last 24 Hours 08/15/22 08/16/22 08/17/22 23:59 23:59 23:59 Intake Total 1427.92 / 1427.92 4513.79 / 4570.37 1623.54 / 1623.54 Output Total 3245 / 3245 800 / 800 Balance 1427.92 / 1427.92 1268.79 / 1325.37 823.54 / 823.54 Lab / Micro Data Result Diagrams: 08/19/22 04:30 08/19/22 04:30 Labs: Laboratory Results - last 24 hr 08/15/22 16:20: Diff Path Review Reviewed 08/16/22 06:10: Diff Path Review Reviewed 08/16/22 21:20: Phosphorus 2.1 L, Magnesium 1.6 08/17/22 04:50: WBC 15.6 H, RBC 3.41 L, Hgb 8.8 L, Hct 28.0 L, MCV 82.1, MCH 25.8 L, MCHC 31.4 L, RDW Std Deviation 54.1 H, RDW Coeff of Jeanine 18.2 H, Plt Count 346, MPV 9.3, Immature Gran % (Auto) 0.600, Neut % (Auto) 76.3 H, Lymph % (Auto) 12.5 L, [place] % (Auto) 9.1, Eos % (Auto) 0.8, Baso % (Auto) 0.7, Absolute Neuts (auto) 11.9 H, Absolute Lymphs (auto) 1.95, Nucleated RBC % 0 08/17/22 04:50: Sodium 150 H, Potassium 2.9 L, Chloride 116 H, Carbon Dioxide 27.0, Anion Gap 7, BUN 19 H, Creatinine 0.71, Estim Creat Clear Calc 59.77, Est GFR (MDRD) Af Amer 107, Est GFR (MDRD) Non-Af 89, BUN/Creatinine Ratio 26.7 H, Glucose 112 H, Calcium 7.4 L, Total Bilirubin 0.80, AST 18, ALT 14, Alkaline Phosphatase 109, Total Protein 4.9 L, Albumin 1.6 L, Globulin 3.3, Albumin/Globulin Ratio 0.5 L Micro: Microbiology 08/16/22 04:30 Sputum, Induced/Lukens Gram Stain - Final 08/16/22 04:30 Sputum, Induced/Lukens Respiratory Culture - Preliminary Gram negative valerie Staphylococcus species Beta streptococcus 08/16/22 03:40 Urine Catheter - [place] Urine Culture - Preliminary Culture exhibits no growth. Rhythm Strip Rhythm Strip: Sinus Tach Rate: 113 Ectopy: None Physical Exam Narrative Physical exam: General: Sedated, on mechanical ventilator, per/OG tube in situ, appears chronically ill HEENT: Atraumatic Oral: Moist Mucosa Neck: Supple Lungs: Diminished to auscultation Cardiovascular: HS I+II, regular, no murmurs Abdomen: Bowel Sounds Present, Soft, Non Tender Extremities: No edema Skin: No rashes, No breakdown Neurological: Grossly intact Psych/Mental Status: Appropriate Assessment & Plan Assessment/Plan (1) Acute GI bleeding: PLAN: Acute upper GI bleed likely secondary to Leena-Shen tear, erosive esophagitis, peptic ulcer disease. The plan is for endoscopy tomorrow as hemoglobin is still decreasing. I am not sure if it is dilutional or if she is losing in the esophagus who I think the most likely site of GI bleeding is currently at this time. She does have a history of peptic ulcer disease which is also new differential diagnosis. Continue PPI drip (2) Esophageal thickening: PLAN: . Some of the esophageal thickening is likely secondary to bile reflux from vomiting and gastric acid in the esophagus. Plan is for EGD tomorrow. Charges/Coding Visit Charges Inpatient E&M: 67871 Subs Hosp L2
[2022-08-17] MEDS: Ipratropium/Albuterol Sulfate 3 ML AMPUL.NEB INHALATION (19:24)
[2022-08-18] VITALS (49 sets, daily range): BP systolic 71–153; BP diastolic 49–112; PULSE 69–129; RESP 14–36; TEMP 36.4–38; O2SAT 90–100
[2022-08-18] MEDS: Ipratropium/Albuterol Sulfate 3 ML AMPUL.NEB INHALATION ×4 (01:49→18:40)
[2022-08-18] MEDS: CHLORHEXIDINE GLUC 2% CLOTH 1 EACH TOWELETTE TOPICAL (04:14)
[2022-08-18 04:35] LABS: ALB/GLOB Ratio 0.5 RATIO (0.9-2.4); AST(SGOT) 25 U/L (15-37); Alanine Aminotransfer ALT/SGPT 13 U/L (13-56); Albumin, Serum 1.5 g/dL (3.2-5.0); Alkaline Phosphatase 119 U/L (45-117); Anion Gap 7 (5-15); BUN 11 mg/dL (7-18); BUN/Creat Ratio 16.7 RATIO (10-20); Calcium,Total 7.4 mg/dL (8.5-10.1); Chloride 112 mmol/L (98-107); Creatinine, Serum 0.66 mg/dL (0.55-1.02); EST Glomerular Filtration Rate 97 mL/min (>60); Est Glom Filt Rate - Afr Amer 117 mL/min (>60); Globulin 3.2 g/dL (2.2-4.2); Glucose 120 mg/dL (74-106); Magnesium 1.5 mg/dL (1.6-2.6); Phosphorus 2.2 mg/dL (2.5-4.9); Potassium 3.4 mmol/L (3.5-5.1); Protein, Total 4.7 g/dL (6.4-8.2); Sodium Level 144 mmol/L (136-145)
[2022-08-18] MEDS: 0.9% Saline Lock 10 ML Syringe IV ×3 (04:50→20:58)
[2022-08-18 04:52] LABS: Absolute Lymphocyte Count 2.02 X10^3/uL (0.83-4.51); Absolute Neutrophil Count 11.1 X10^3/uL (2.0-7.7); Basophil# 0.05 X10^3/uL; Basophil% 0.3 % (0-1); Eosinophil# 0.27 X10^3/uL; Eosinophils% 1.8 % (0-5); Hematocrit 25.5 % (37-47); Hemoglobin 7.9 g/dL (12.0-15.0); Lymphocyte # 2.02 X10^3/ul (0.83-4.51); Lymphocyte % 13.8 % (19-41); Mean Corpuscular Hgb 25.8 pg (27.0-32.0); Mean Corpuscular Volume 83.3 fL (81-99); Mean Platelet Vol. 8.9 fl (6.2-12.0); Monocyte# 1.13 X10^3/uL; Monocyte% 7.7 % (0-10); NRBC Flagged by Analyzer 0 % (0-5); Neutrophil # 11.09 X10^3/uL (2.7-7.7); Neutrophil % 75.9 % (47-70); Platelet Count 266 K/mm3 (150-450); RBC Distribution Width SD 57.7 fl (35.1-43.9); Red Blood Count 3.06 M/mm3 (4.2-5.4); White Blood Count 14.6 K/mm3 (4.4-11.0)
--- NOTE | 2022-08-18 07:36 | PCM.PN.INT ---
Assessment & Plan Assessment/Plan (1) Acute upper gastrointestinal bleeding: PLAN: Plan RECOMMENDATIONS: 1. Continue to monitor H&H and transfuse if hemoglobin drops below 7 g/dL. 2. Continue antimicrobials for GNR and staph. 3. Start scheduled bronchodilators. 4. Wean Levophed to maintain a mean arterial pressure at or above 65 mmHg. 5. Continue PPI therapy. Possible EGD today. Gastroenterology is following to assist with medical management. 6. Decrease D5W and potassium repletion as indicated. IMPRESSIONS: 1. Acute hypoxemic respiratory failure The patient was ultimately intubated after she became unresponsive and experienced an emesis event with immediate concern for aspiration. Patient growing GNR and staph from her sputum. She will be continued on assist control mode of mechanical ventilation. FiO2 and PEEP will be weaned to maintain saturations at or above 90%. Patient with significant agitation. Secretions reportedly improving. We will add Seroquel to Precedex. Attempt to avoid transition to propofol as agitation is a significant concern with spontaneous breathing trial. 2. Acute blood loss anemia with hemorrhagic shock The patient presented with abdominal pain and hematemesis and required transfusion of blood products due to worsening anemia. Plan to continue to monitor serial H&H and transfuse if hemoglobin drops below 7 g/dL. Continue Protonix as ordered. The patient will be maintained on Levophed to maintain a mean arterial pressure at or above 65 mmHg. Gastroenterology is following to assist with medical management. Hopefully patient can have an EGD for evaluation today 3. Hypernatremia/hypokalemia Start D5W with potassium repletion. Continue to monitor chemistry profile daily. 4. History of CVA/hypertension/anxiety/depression/questionable COPD/hypothyroidism/tobacco dependency Complicates care, management, recovery and prognosis. Continue bronchodilators as ordered. TIME: 35 minutes of critical care time, independent of procedures, was spent addressing the patient's acute hypoxemic respiratory failure, blood loss anemia, hemorrhagic shock, review of all data and collaboration with the care team. Subjective Subjective Patient did okay overnight. Patient remains on minimal pressors and did have a spontaneous breathing trial this morning. Unfortunately, patient failed after approximately 40 minutes with tachycardia and hypoxia. Nursing did report significant agitation despite Precedex therapy. Secretions and GI output have improved per nursing. Objective Data Objective Data Vital Signs: Vital Signs Temp Pulse Resp BP Pulse Ox O2 Del Method O2 Flow Rate 37.9 C H 127 H 24 H 96/63 96 Bi-pap 2 08/18/22 07:00 08/18/22 07:00 08/18/22 07:00 08/18/22 07:00 08/18/22 07:00 08/18/22 07:00 08/16/22 04:00 FiO2 30 08/18/22 07:00 Oxygen Flow Rate (L/min) 2 Oxygen Delivery Method Bi-pap Weight: 49.3 kg Body Mass Index (BMI) 20.2 Intake & Output: Intake and Output for Last 24 Hours 08/16/22 08/17/22 08/18/22 23:59 23:59 23:59 Intake Total 4513.79 / 4570.37 2051.04 / 2072.34 1465.45 / 1465.45 Output Total 3245 / 3245 1175 / 1225 350 / 350 Balance 1268.79 / 1325.37 876.04 / 847.34 1115.45 / 1115.45 Lab / Micro Data Attestation: I reviewed the patient's lab results. Result Diagrams: 08/18/22 04:35 08/18/22 04:05 Labs: Laboratory Results - last 24 hr 08/15/22 16:20: Diff Path Review Reviewed 08/16/22 06:10: Diff Path Review Reviewed 08/18/22 04:05: WBC Cancelled, Corrected WBC Cancelled, RBC Cancelled, Hgb Cancelled, Hct Cancelled, MCV Cancelled, MCH Cancelled, MCHC Cancelled, RDW Std Deviation Cancelled, RDW Coeff of Jeanine Cancelled, Plt Count Cancelled, MPV Cancelled, Immature Gran % (Auto) Cancelled, Neut % (Auto) Cancelled, Lymph % (Auto) Cancelled, [place] % (Auto) Cancelled, Eos % (Auto) Cancelled, Baso % (Auto) Cancelled, Absolute Neuts (auto) Cancelled, Absolute Lymphs (auto) Cancelled, Total Counted Cancelled, Neutrophils % (Manual) Cancelled, Band Neutrophils % Cancelled, Lymphocytes % (Manual) Cancelled, Monocytes % (Manual) Cancelled, Eosinophils % (Manual) Cancelled, Basophils % (Manual) Cancelled, Metamyelocytes % Cancelled, Myelocytes % Cancelled, Promyelocytes % Cancelled, Blast Cells % Cancelled, Plasma Cell % (Manual) Cancelled, Other Cells % Cancelled, Nucleated RBC % Cancelled, Nucleated RBCs/100 WBC Cancelled, Differential Comment Cancelled, Diff Path Review Cancelled, Hypersegmented Neuts Cancelled, Atypical Lymphocytes Cancelled, Reactive Lymphocytes Cancelled, Smudge Cells Cancelled, Toxic Granulation Cancelled, Toxic Vacuolation Cancelled, Dohle Bodies Cancelled, Gifty Rods Cancelled, Platelet Estimate Cancelled, Plt Morphology Comment Cancelled, RBC Morphology Cancelled, Polychromasia Cancelled, Hypochromasia Cancelled, Poikilocytosis Cancelled, Basophilic Stippling Cancelled, Anisocytosis Cancelled, Microcytosis Cancelled, Macrocytosis Cancelled, Spherocytes Cancelled, Sickle Cells Cancelled, Target Cells Cancelled, Tear Drop Cells Cancelled, Ovalocytes Cancelled, Stomatocytes Cancelled, Cast[place] Bodies Cancelled, [place] Cells Cancelled, Bite Cells Cancelled, Crenated Cell Cancelled, Acanthocytes (Spur) Cancelled, Rouleaux Cancelled, Schistocytes Cancelled 08/18/22 04:05: Sodium 144, Potassium 3.4 L, Chloride 112 H, Carbon Dioxide 25.0, Anion Gap 7, BUN 11, Creatinine 0.66, Estim Creat Clear Calc 64.30, Est GFR (MDRD) Af Amer 117, Est GFR (MDRD) Non-Af 97, BUN/Creatinine Ratio 16.7, Glucose 120 H, Calcium 7.4 L, Phosphorus 2.2 L, Magnesium 1.5 L, Total Bilirubin 0.50, AST 25, ALT 13, Alkaline Phosphatase 119 H, Total Protein 4.7 L, Albumin 1.5 L, Globulin 3.2, Albumin/Globulin Ratio 0.5 L 08/18/22 04:35: WBC 14.6 H, RBC 3.06 L, Hgb 7.9 L, Hct 25.5 L, MCV 83.3, MCH 25.8 L, MCHC 31.0 L, RDW Std Deviation 57.7 H, RDW Coeff of Jeanine 19.0 H, Plt Count 266, MPV 8.9, Immature Gran % (Auto) 0.500, Neut % (Auto) 75.9 H, Lymph % (Auto) 13.8 L, [place] % (Auto) 7.7, Eos % (Auto) 1.8, Baso % (Auto) 0.3, Absolute Neuts (auto) 11.1 H, Absolute Lymphs (auto) 2.02, Nucleated RBC % 0 Micro: Microbiology 08/16/22 04:54 Blood Culture (Wb) - Anticubital Left Blood Culture - Preliminary No growth in 48 hours. 08/16/22 04:37 Blood Culture (Wb) - Anticubital Right Blood Culture - Preliminary No growth in 48 hours. 08/16/22 04:30 Sputum, Induced/Lukens Gram Stain - Final 08/16/22 04:30 Sputum, Induced/Lukens Respiratory Culture - Preliminary Gram negative valerie Staphylococcus species Beta streptococcus 08/16/22 03:40 Urine Catheter - [place] Urine Culture - Preliminary Culture exhibits no growth. Rhythm Strip Rhythm Strip: Sinus Tach Rate: 125 Ectopy: None Physical Exam Const General Appearance: ill appearing, frail, intubated and patient mechanically ventilated HEENT normocephalic and head/scalp atraumatic Mouth: endotracheal tube in place and OG tube in place Eyes PERRL, EOMs intact bilaterally, conjunctivae normal and no scleral icterus Neck supple General: trachea midline and CVC in place Resp Auscultation: diminished lung sounds; Negative for rales, rhonchi or wheezes Cardio regular rate, regular rhythm, S1 normal heart sound, S2 normal heart sound, no murmurs, no rub and no gallops GI normal to inspection, nondistended, normoactive bowel sounds Extremity no clubbing, cyanosis or edema Skin no rashes or lesions noted Neuro Sensorium / Orientation: sedated on vent RASS: +1 Psych Mood & Affect: anxious Charges/Coding Procedures Hospitalists Procedures: 97818 Critial Care 1st Hr
--- NOTE | 2022-08-18 07:46 | PCM.PN.HOSP ---
Subjective Subjective Follow-up on acute metabolic encephalopathy/acute GI bleed/blood loss anemia: Patient was seen and examined. She failed her spontaneous weaning trial today. She remains on Levophed still because her blood pressures have been waxing and waning. She remains agitated, Seroquel prescribed. NG tube aspirate appears to have slowed down. Objective Data Objective Data Vital Signs: Vital Signs Temp Pulse Resp BP Pulse Ox O2 Del Method O2 Flow Rate 100.2 F H 127 H 24 H 96/63 96 Bi-pap 2 08/18/22 07:00 08/18/22 07:00 08/18/22 07:00 08/18/22 07:00 08/18/22 07:00 08/18/22 07:00 08/16/22 04:00 FiO2 30 08/18/22 07:00 Oxygen Flow Rate (L/min) 2 Oxygen Delivery Method Bi-pap Weight: 49.3 kg Body Mass Index (BMI) 20.2 Intake & Output: Intake and Output for Last 24 Hours 08/16/22 08/17/22 08/18/22 23:59 23:59 23:59 Intake Total 4513.79 / 4570.37 2051.04 / 2072.34 1465.45 / 1465.45 Output Total 3245 / 3245 1175 / 1225 350 / 350 Balance 1268.79 / 1325.37 876.04 / 847.34 1115.45 / 1115.45 Lab / Micro Data Result Diagrams: 08/18/22 04:35 08/18/22 04:05 Labs: Laboratory Results - last 24 hr 08/15/22 16:20: Diff Path Review Reviewed 08/16/22 06:10: Diff Path Review Reviewed 08/18/22 04:05: WBC Cancelled, Corrected WBC Cancelled, RBC Cancelled, Hgb Cancelled, Hct Cancelled, MCV Cancelled, MCH Cancelled, MCHC Cancelled, RDW Std Deviation Cancelled, RDW Coeff of Jeanine Cancelled, Plt Count Cancelled, MPV Cancelled, Immature Gran % (Auto) Cancelled, Neut % (Auto) Cancelled, Lymph % (Auto) Cancelled, [place] % (Auto) Cancelled, Eos % (Auto) Cancelled, Baso % (Auto) Cancelled, Absolute Neuts (auto) Cancelled, Absolute Lymphs (auto) Cancelled, Total Counted Cancelled, Neutrophils % (Manual) Cancelled, Band Neutrophils % Cancelled, Lymphocytes % (Manual) Cancelled, Monocytes % (Manual) Cancelled, Eosinophils % (Manual) Cancelled, Basophils % (Manual) Cancelled, Metamyelocytes % Cancelled, Myelocytes % Cancelled, Promyelocytes % Cancelled, Blast Cells % Cancelled, Plasma Cell % (Manual) Cancelled, Other Cells % Cancelled, Nucleated RBC % Cancelled, Nucleated RBCs/100 WBC Cancelled, Differential Comment Cancelled, Diff Path Review Cancelled, Hypersegmented Neuts Cancelled, Atypical Lymphocytes Cancelled, Reactive Lymphocytes Cancelled, Smudge Cells Cancelled, Toxic Granulation Cancelled, Toxic Vacuolation Cancelled, Dohle Bodies Cancelled, Gifty Rods Cancelled, Platelet Estimate Cancelled, Plt Morphology Comment Cancelled, RBC Morphology Cancelled, Polychromasia Cancelled, Hypochromasia Cancelled, Poikilocytosis Cancelled, Basophilic Stippling Cancelled, Anisocytosis Cancelled, Microcytosis Cancelled, Macrocytosis Cancelled, Spherocytes Cancelled, Sickle Cells Cancelled, Target Cells Cancelled, Tear Drop Cells Cancelled, Ovalocytes Cancelled, Stomatocytes Cancelled, Castellanos-[place] Bodies Cancelled, [place] Cells Cancelled, Bite Cells Cancelled, Crenated Cell Cancelled, Acanthocytes (Spur) Cancelled, Rouleaux Cancelled, Schistocytes Cancelled 08/18/22 04:05: Sodium 144, Potassium 3.4 L, Chloride 112 H, Carbon Dioxide 25.0, Anion Gap 7, BUN 11, Creatinine 0.66, Estim Creat Clear Calc 64.30, Est GFR (MDRD) Af Amer 117, Est GFR (MDRD) Non-Af 97, BUN/Creatinine Ratio 16.7, Glucose 120 H, Calcium 7.4 L, Phosphorus 2.2 L, Magnesium 1.5 L, Total Bilirubin 0.50, AST 25, ALT 13, Alkaline Phosphatase 119 H, Total Protein 4.7 L, Albumin 1.5 L, Globulin 3.2, Albumin/Globulin Ratio 0.5 L 08/18/22 04:35: WBC 14.6 H, RBC 3.06 L, Hgb 7.9 L, Hct 25.5 L, MCV 83.3, MCH 25.8 L, MCHC 31.0 L, RDW Std Deviation 57.7 H, RDW Coeff of Jeanine 19.0 H, Plt Count 266, MPV 8.9, Immature Gran % (Auto) 0.500, Neut % (Auto) 75.9 H, Lymph % (Auto) 13.8 L, [place] % (Auto) 7.7, Eos % (Auto) 1.8, Baso % (Auto) 0.3, Absolute Neuts (auto) 11.1 H, Absolute Lymphs (auto) 2.02, Nucleated RBC % 0 Micro: Microbiology 08/16/22 04:54 Blood Culture (Wb) - Anticubital Left Blood Culture - Preliminary No growth in 48 hours. 08/16/22 04:37 Blood Culture (Wb) - Anticubital Right Blood Culture - Preliminary No growth in 48 hours. 08/16/22 04:30 Sputum, Induced/Lukens Gram Stain - Final 08/16/22 04:30 Sputum, Induced/Lukens Respiratory Culture - Preliminary Gram negative valerie Staphylococcus species Beta streptococcus 08/16/22 03:40 Urine Catheter - [place] Urine Culture - Preliminary Culture exhibits no growth. Rhythm Strip Rhythm Strip: Sinus Tach Rate: 125 Ectopy: None Physical Exam Narrative Physical exam: General: Sedated, on mechanical ventilator, ETT/OG tube in situ, appears chronically ill HEENT: Atraumatic Oral: Moist Mucosa Neck: Supple Lungs: Diminished to auscultation Cardiovascular: HS I+II, regular, no murmurs Abdomen: Bowel Sounds Present, Soft, Non Tender Extremities: No edema Skin: No rashes, No breakdown Neurological: Grossly intact Psych/Mental Status: Appropriate Assessment & Plan Assessment/Plan (1) Acute GI bleeding: PLAN: Plan 1. Acute hypoxic respiratory failure, s/p intubation for primary airway protection Concern for aspiration pneumonitis; chest x-ray showed basilar atelectasis Continue mechanical ventilator; commissary agent following 2. Acute gram-negative valerie/staph/beta strep pneumonia Patient remains febrile. WBC count is 14.6 from 15.6 Continue on IV Unasyn(day 3) 3. Acute GI bleed secondary to upper GI bleed from probable Leena-Sehn tear CT of the abdomen pelvis on 08/15/2022 showed fluid-filled distal esophagus and hiatal hernia GI consulted, EGD planned when hemodynamically stable. Continue on PPI drip 4. Acute blood loss anemia secondary to #2, status post 2 units of packed RBCs Hb today is 7.9 , will continue to trend Will transfuse for hemoglobin less than 7 5. Shock likely secondary to hypovolemic vs septic shock, remains on Levophed Continue to wean off for MAP more than 65 6. Acute metabolic encephalopathy, s/p intubation 7. Hypokalemia/hypomagnesemia/hypophosphatemia, replaced, recheck in a.m. 8. Hypertension, now hypotensive, continue to hold home meds on account of shock 8. Anxiety/depression, home meds on hold 9. COPD/asthma, not in acute exacerbation, on as needed breathing treatments 10. History of CVA with chronic left upper extremity weakness/hyperlipidemia Aspirin on hold on account of GI bleed Hold statins for now 11. DVT prophylaxis?on SCDs Charges/Coding Visit Charges Inpatient E&M: 00817 Subs Hosp L3
[2022-08-18] MEDS: QUEtiapine 25 MG Tablet 50 MG PO ×2 (09:42→21:02)
[2022-08-18] MEDS: Potassium Chloride Oral Tablet 20 MEQ PO (09:42)
[2022-08-18] MEDS: Chlorhexidine 15 ML PO ×2 (09:43→21:00)
[2022-08-18] MEDS: Dexmedetomidine 1,000 mcg in 0.9% NS 240 mL 15.1 MCG CONT INF (11:46)
[2022-08-18] MEDS: DOXEPIN HCL 50 MG CAPSULE 100 MG PO (21:02)
[2022-08-19] VITALS (58 sets, daily range): BP systolic 70–132; BP diastolic 50–79; PULSE 81–117; RESP 12–31; TEMP 37.1–37.9; O2SAT 90–100
[2022-08-19] MEDS: Ipratropium/Albuterol Sulfate 3 ML AMPUL.NEB INHALATION ×4 (01:55→19:13)
[2022-08-19] MEDS: Dexmedetomidine 1,000 mcg in 0.9% NS 240 mL 17.5 MCG CONT INF (02:15)
[2022-08-19 04:36] LABS: Absolute Lymphocyte Count 2.55 X10^3/uL (0.83-4.51); Absolute Neutrophil Count 9.3 X10^3/uL (2.0-7.7); Basophil# 0.04 X10^3/uL; Basophil% 0.3 % (0-1); Eosinophil# 0.57 X10^3/uL; Eosinophils% 4.1 % (0-5); Hematocrit 25.2 % (37-47); Hemoglobin 7.8 g/dL (12.0-15.0); Lymphocyte # 2.55 X10^3/ul (0.83-4.51); Lymphocyte % 18.4 % (19-41); Mean Corpuscular Hgb 26.2 pg (27.0-32.0); Mean Corpuscular Volume 84.6 fL (81-99); Mean Platelet Vol. 9.7 fl (6.2-12.0); Monocyte# 1.31 X10^3/uL; Monocyte% 9.4 % (0-10); NRBC Flagged by Analyzer 0 % (0-5); Neutrophil # 9.33 X10^3/uL (2.7-7.7); Neutrophil % 67.2 % (47-70); Platelet Count 252 K/mm3 (150-450); RBC Distribution Width SD 60.4 fl (35.1-43.9); Red Blood Count 2.98 M/mm3 (4.2-5.4); White Blood Count 13.9 K/mm3 (4.4-11.0)
[2022-08-19 04:53] LABS: ALB/GLOB Ratio 0.4 RATIO (0.9-2.4); AST(SGOT) 22 U/L (15-37); Alanine Aminotransfer ALT/SGPT 16 U/L (13-56); Albumin, Serum 1.4 g/dL (3.2-5.0); Alkaline Phosphatase 138 U/L (45-117); Anion Gap 6 (5-15); BUN 4 mg/dL (7-18); BUN/Creat Ratio 7.5 RATIO (10-20); Calcium,Total 7.4 mg/dL (8.5-10.1); Chloride 111 mmol/L (98-107); Creatinine, Serum 0.54 mg/dL (0.55-1.02); EST Glomerular Filtration Rate 123 mL/min (>60); Est Glom Filt Rate - Afr Amer 149 mL/min (>60); Estimated Creatinine Clearance 78.58 ml/min; Globulin 3.4 g/dL (2.2-4.2); Glucose 102 mg/dL (74-106); Magnesium 1.9 mg/dL (1.6-2.6); Phosphorus 3.1 mg/dL (2.5-4.9); Potassium 3.9 mmol/L (3.5-5.1); Protein, Total 4.8 g/dL (6.4-8.2); Sodium Level 141 mmol/L (136-145)
[2022-08-19] MEDS: 0.9% Saline Lock 10 ML Syringe IV ×2 (05:11→22:31)
--- NOTE | 2022-08-19 06:02 | CPS ---
patient does not follow directions well enough at this time to perform a NIF test
[2022-08-19 06:11] LABS: Allen Test Negative; Base Excess -3 mmol/L (-2 to +2); Bicarbonate 22.4 mmol/L (22-26); Blood Gas Specimen Type ART; FI02 30; Mode CPAP/PS; O2 Delivery Device Adult Vent; PEEP 5; PO2 68 mmHG (75-100); PS 5; SITE R Brach; SO2 93 % (95-99); Total Carbon Dioxide 24 mmol/L; pCO2 36.4 mmHg (35-45)
--- NOTE | 2022-08-19 07:03 | PCM.PN.HOSP ---
Subjective Subjective Follow-up on acute metabolic encephalopathy/acute GI bleed/blood loss anemia: Patient was seen and examined. She was extubated this morning. Patient seen mumbling, hard to understand. Still on Levophed drip. Objective Data Objective Data Vital Signs: Vital Signs Temp Pulse Resp BP Pulse Ox O2 Del Method O2 Flow Rate 99.9 F H 112 H 16 97/60 96 Mechanical Ventilator 2 08/19/22 07:00 08/19/22 07:00 08/19/22 07:00 08/19/22 07:00 08/19/22 07:00 08/19/22 07:00 08/16/22 04:00 FiO2 35 08/19/22 07:00 Oxygen Flow Rate (L/min) 2 Oxygen Delivery Method Mechanical Ventilator Weight: 51.9 kg Body Mass Index (BMI) 20.2 Intake & Output: Intake and Output for Last 24 Hours 08/17/22 08/18/22 08/19/22 23:59 23:59 23:59 Intake Total 2051.04 / 2072.34 4212.4033 / 4253.7033 593.62 / 593.62 Output Total 1175 / 1225 1655 / 1655 250 / 250 Balance 876.04 / 847.34 2557.4033 / 2598.7033 343.62 / 343.62 Lab / Micro Data Result Diagrams: 08/19/22 04:30 08/19/22 04:30 Labs: Laboratory Results - last 24 hr 08/15/22 16:20: Crossmatch See Detail 08/19/22 04:30: WBC 13.9 H, RBC 2.98 L, Hgb 7.8 L, Hct 25.2 L, MCV 84.6, MCH 26.2 L, MCHC 31.0 L, RDW Std Deviation 60.4 H, RDW Coeff of Jeanine 20.0 H, Plt Count 252, MPV 9.7, Immature Gran % (Auto) 0.600, Neut % (Auto) 67.2, Lymph % (Auto) 18.4 L, [place] % (Auto) 9.4, Eos % (Auto) 4.1, Baso % (Auto) 0.3, Absolute Neuts (auto) 9.3 H, Absolute Lymphs (auto) 2.55, Nucleated RBC % 0 08/19/22 04:30: Sodium 141, Potassium 3.9, Chloride 111 H, Carbon Dioxide 24.0, Anion Gap 6, BUN 4 L, Creatinine 0.54 L, Estim Creat Clear Calc 78.58, Est GFR (MDRD) Af Amer 149, Est GFR (MDRD) Non-Af 123, BUN/Creatinine Ratio 7.5 L, Glucose 102, Calcium 7.4 L, Phosphorus 3.1, Magnesium 1.9, Total Bilirubin 0.50, AST 22, ALT 16, Alkaline Phosphatase 138 H, Total Protein 4.8 L, Albumin 1.4 L, Globulin 3.4, Albumin/Globulin Ratio 0.4 L Micro: Microbiology 08/16/22 04:30 Sputum, Induced/Lukens Gram Stain - Final 08/16/22 04:30 Sputum, Induced/Lukens Respiratory Culture - Preliminary Serratia marcescens Staphylococcus aureus Beta streptococcus 08/16/22 03:40 Urine Catheter - [place] Urine Culture - Final Culture exhibits no growth. 08/16/22 04:54 Blood Culture (Wb) - Anticubital Left Blood Culture - Preliminary No growth in 48 hours. 08/16/22 04:37 Blood Culture (Wb) - Anticubital Right Blood Culture - Preliminary No growth in 48 hours. ABG Data ABG results: ABG 08/19/22 06:03 Specimen Type ART Sample Site R Brach pH 7.40 Bicarbonate Actual 22.4 Total CO2 24 Base Excess -3 L O2 Saturation 93 L O2 % 30 ABG pCO2 36.4 ABG pO2 68 L Luis Test Negative O2 Delivery Device Adult Vent Vent Mode CPAP/PS POC PEEP 5 POC Pressure Suppt 5 Rhythm Strip Rhythm Strip: Sinus Tach Rate: 125 Ectopy: None Physical Exam Narrative Physical exam: General: Alert, oriented to self, unclear if oriented to place or time with patient appears noncoherent, on 2 L of oxygen HEENT: Atraumatic Oral: Moist Mucosa Neck: Supple Lungs: Diminished to auscultation Cardiovascular: HS I+II, regular, no murmurs Abdomen: Bowel Sounds Present, Soft, Non Tender Extremities: No edema Skin: No rashes, No breakdown Neurological: Grossly intact Psych/Mental Status: Appropriate Assessment & Plan Assessment/Plan (1) Acute GI bleeding: PLAN: Plan 1. Acute hypoxic respiratory failure, s/p intubation for primary airway protection Extubated on 08/19/22 morning Repeat chest x-ray prior to extubation shows pulmonary hypo-inflation Currently on 2 L of oxygen, continue to wean off for SPO2 more than 92% 2. Acute Serratia marcescens/staph/beta strep pneumonia Patient remains febrile. WBC count is 13.89 from 14.6 Switch to IV ceftriaxone (day 4 of antibiotics) 3. Acute GI bleed secondary to upper GI bleed from probable Leena-Shen tear CT of the abdomen pelvis on 08/15/2022 showed fluid-filled distal esophagus and hiatal hernia GI consulted, EGD planned later Switch to IV PPI twice daily 4. Acute blood loss anemia secondary to #2, status post 2 units of packed RBCs Hb today is 7.8 , will continue to trend Will transfuse for hemoglobin less than 7 5. Shock likely secondary to hypovolemic vs septic shock, remains on Levophed Continue to wean off for MAP more than 65 6. Acute metabolic encephalopathy, unclear baseline Will get more information from family 7. Hypomagnesemia, magnesium is 1.9, replace, recheck in a.m. 8. Hypertension, now hypotensive, continue to hold home meds on account of shock 8. Anxiety/depression, home meds on hold 9. COPD/asthma, not in acute exacerbation, on as needed breathing treatments 10. History of CVA with chronic left upper extremity weakness/hyperlipidemia Aspirin on hold on account of GI bleed Hold statins for now 11. DVT prophylaxis?on SCDs Charges/Coding Visit Charges Inpatient E&M: 47331 Subs Hosp L3
--- NOTE | 2022-08-19 07:26 | PN.CC_ITS ---
Assessment & Plan Assessment/Plan (1) Acute upper gastrointestinal bleeding: PLAN: Plan RECOMMENDATIONS: 1. Continue to monitor H&H and transfuse if hemoglobin drops below 7 g/dL. 2. Continue current antimicrobials for GNR and staph. 3. Okay to proceed with extubation 4. Wean Levophed to maintain a mean arterial pressure at or above 65 mmHg. 5. Continue PPI therapy. Possible EGD. Gastroenterology is following to assist with medical management. 6. Bedside swallow evaluation prior to p.o. diet IMPRESSIONS: 1. Acute hypoxemic respiratory failure The patient was ultimately intubated after she became unresponsive and experienced an emesis event with immediate concern for aspiration. Patient growing GNR and staph from her sputum. She will be continued on assist control mode of mechanical ventilation. FiO2 and PEEP will be weaned to maintain saturations at or above 90%. Patient able to tolerate spontaneous breathing trial with good ABG. We will proceed with extubation. Wean Precedex to off.. 2. Acute blood loss anemia with hemorrhagic shock The patient presented with abdominal pain and hematemesis and required transfusion of blood products due to worsening anemia. Plan to continue to monitor serial H&H and transfuse if hemoglobin drops below 7 g/dL. Continue Protonix as ordered. The patient will be maintained on Levophed to maintain a mean arterial pressure at or above 65 mmHg. Gastroenterology is following to assist with medical management. Defer to GI on timing of endoscopy 3. Hypernatremia/hypokalemia Resolved. Continue to monitor chemistry profile daily. 4. History of CVA/hypertension/anxiety/depression/questionable COPD/hypothyroidism/tobacco dependency Complicates care, management, recovery and prognosis. Continue bronchodilators as ordered. TIME: 32 minutes of critical care time, independent of procedures, was spent addressing the patient's acute hypoxemic respiratory failure, blood loss anemia, hemorrhagic shock, review of all data and collaboration with the care team. Subjective Subjective Patient did well overnight. Patient continues to be on Levophed with intermittent agitation being treated with Seroquel and Precedex. Patient was able to pass a spontaneous breathing trial this morning. Nursing did report significant improvements in secretions. No bowel movements have been noted. Objective Data Objective Data Vital Signs: Vital Signs Temp Pulse Resp BP Pulse Ox O2 Del Method O2 Flow Rate 37.7 C H 112 H 16 97/60 96 Mechanical Ventilator 2 08/19/22 07:00 08/19/22 07:00 08/19/22 07:00 08/19/22 07:00 08/19/22 07:00 08/19/22 07:00 08/16/22 04:00 FiO2 35 08/19/22 07:00 Oxygen Flow Rate (L/min) 2 Oxygen Delivery Method Mechanical Ventilator Weight: 51.9 kg Body Mass Index (BMI) 20.2 Intake & Output: Intake and Output for Last 24 Hours 08/17/22 08/18/22 08/19/22 23:59 23:59 23:59 Intake Total 2051.04 / 2072.34 4212.4033 / 4253.7033 593.62 / 593.62 Output Total 1175 / 1225 1655 / 1655 250 / 250 Balance 876.04 / 847.34 2557.4033 / 2598.7033 343.62 / 343.62 Lab / Micro Data Attestation: I reviewed the patient's lab results. Result Diagrams: 08/19/22 04:30 08/19/22 04:30 Labs: Laboratory Results - last 24 hr 08/15/22 16:20: Crossmatch See Detail 08/19/22 04:30: WBC 13.9 H, RBC 2.98 L, Hgb 7.8 L, Hct 25.2 L, MCV 84.6, MCH 26.2 L, MCHC 31.0 L, RDW Std Deviation 60.4 H, RDW Coeff of Jeanine 20.0 H, Plt Count 252, MPV 9.7, Immature Gran % (Auto) 0.600, Neut % (Auto) 67.2, Lymph % (Auto) 18.4 L, [place] % (Auto) 9.4, Eos % (Auto) 4.1, Baso % (Auto) 0.3, Absolute Neuts (auto) 9.3 H, Absolute Lymphs (auto) 2.55, Nucleated RBC % 0 08/19/22 04:30: Sodium 141, Potassium 3.9, Chloride 111 H, Carbon Dioxide 24.0, Anion Gap 6, BUN 4 L, Creatinine 0.54 L, Estim Creat Clear Calc 78.58, Est GFR (MDRD) Af Amer 149, Est GFR (MDRD) Non-Af 123, BUN/Creatinine Ratio 7.5 L, Glucose 102, Calcium 7.4 L, Phosphorus 3.1, Magnesium 1.9, Total Bilirubin 0.50, AST 22, ALT 16, Alkaline Phosphatase 138 H, Total Protein 4.8 L, Albumin 1.4 L, Globulin 3.4, Albumin/Globulin Ratio 0.4 L Micro: Microbiology 08/16/22 04:30 Sputum, Induced/Lukens Gram Stain - Final 08/16/22 04:30 Sputum, Induced/Lukens Respiratory Culture - Preliminary Serratia marcescens Staphylococcus aureus Beta streptococcus 08/16/22 03:40 Urine Catheter - [place] Urine Culture - Final Culture exhibits no growth. 08/16/22 04:54 Blood Culture (Wb) - Anticubital Left Blood Culture - Preliminary No growth in 48 hours. 08/16/22 04:37 Blood Culture (Wb) - Anticubital Right Blood Culture - Preliminary No growth in 48 hours. ABG Data ABG results: ABG 08/19/22 06:03 Specimen Type ART Sample Site R Brach pH 7.40 Bicarbonate Actual 22.4 Total CO2 24 Base Excess -3 L O2 Saturation 93 L O2 % 30 ABG pCO2 36.4 ABG pO2 68 L Luis Test Negative O2 Delivery Device Adult Vent Vent Mode CPAP/PS POC PEEP 5 POC Pressure Suppt 5 Attestation: I personally reviewed and interpreted this ABG as follows: (Compen sated metabolic acidosis) Rhythm Strip Rhythm Strip: Sinus Rhythm Rate: 97 Ectopy: None Physical Exam Const Constitutional Narrative: Intermittent agitation, but follows commands General Appearance: frail, intubated and patient mechanically ventilated HEENT normocephalic and head/scalp atraumatic Mouth: endotracheal tube in place and OG tube in place Eyes PERRL, EOMs intact bilaterally, conjunctivae normal and no scleral icterus Neck supple General: trachea midline and CVC in place Resp Auscultation: diminished lung sounds; Negative for rales, rhonchi or wheezes Cardio regular rate, regular rhythm, S1 normal heart sound, S2 normal heart sound, no murmurs, no rub and no gallops GI normal to inspection, nondistended, normoactive bowel sounds Extremity no clubbing, cyanosis or edema Skin no rashes or lesions noted Neuro Sensorium / Orientation: sedated on vent RASS: +1 Psych Mood & Affect: anxious Charges/Coding Procedures Hospitalists Procedures: 57542 Critial Care 1st Hr
[2022-08-19] MEDS: CHLORHEXIDINE GLUC 2% CLOTH 1 EACH TOWELETTE TOPICAL (08:50)
[2022-08-19] MEDS: Ceftriaxone 1 GM/50 ML BAG IV (11:13)
--- NOTE | 2022-08-19 11:36 | CHAPLAIN ---
Type of Pastoral Visit ___ Initial Visit _x__ Follow-up Visit ___ On-call Visit ___ General Patient Visit ___ Spiritual Assessment ___ Family Conference ___ Bereavement ___ Rapid Response ___ Code Blue ___ Other (describe below) Pastoral Care Referral From _x__ Patient ___ Family ___ Nurse ___ Physician ___ Cupola Melting Supervisor ___ Naphtha Washing System Operator ___ Other (describe below) Sacrament/Intervention ___ Active listening ___ Anointing ___ Protestant ___ Bereavement ___ Communion ___ Lulu exploration ___ ___ Life review _x__ Prayer ___ Reconciliation ___ Sacrament of Sick _x__ Supportive presence ___ Wedding ___ Other (describe below) Pastoral Comments patient is awake and able to follow words; pt does not respond verbally but mouths her answers or nods her head; pt says she is not worrying; pt nods that she knows God cares; pt accepts a prayer
[2022-08-19] MEDS: QUEtiapine 100 MG Tablet PO ×2 (13:00→20:51)
[2022-08-19] MEDS: Senna/Docusate Sodium 1 Tablet 2 TABLET PO ×2 (13:00→20:51)
--- NOTE | 2022-08-19 14:14 | CASEMGMT ---
Social Work SW following along for possible SNF placement. Will review PT/OT notes when available and discuss with pt and family if placement is necessary. KOBI Ashby
[2022-08-19] MEDS: Dexmedetomidine 1,000 mcg in 0.9% NS 240 mL 15.1 MCG CONT INF (16:55)
[2022-08-19] MEDS: TITRATION PARAMETER CHANGE 1 EACH IV (20:50)
[2022-08-19] MEDS: DOXEPIN HCL 50 MG CAPSULE 100 MG PO (20:51)
--- NOTE | 2022-08-19 22:09 | PCM.HOSP.N ---
Hospitalist Note Patient MAP < 65 x 2 now, trending down through the evening. Will restart the NEP.
[2022-08-20] VITALS (45 sets, daily range): BP systolic 77–157; BP diastolic 51–73; PULSE 85–114; RESP 14–34; TEMP 36.4–37.9; O2SAT 88–98
[2022-08-20] MEDS: Ipratropium/Albuterol Sulfate 3 ML AMPUL.NEB INHALATION ×4 (01:17→18:39)
[2022-08-20 03:32] LABS: Absolute Lymphocyte Count 2.14 X10^3/uL (0.83-4.51); Absolute Neutrophil Count 8.4 X10^3/uL (2.0-7.7); Basophil# 0.03 X10^3/uL; Basophil% 0.2 % (0-1); Eosinophil# 0.41 X10^3/uL; Eosinophils% 3.2 % (0-5); Hematocrit 24.4 % (37-47); Hemoglobin 7.6 g/dL (12.0-15.0); Lymphocyte # 2.14 X10^3/ul (0.83-4.51); Lymphocyte % 16.8 % (19-41); Mean Corp Hgb Conc 31.1 g/dL (32-36); Mean Corpuscular Hgb 26.1 pg (27.0-32.0); Mean Corpuscular Volume 83.8 fL (81-99); Mean Platelet Vol. 9.9 fl (6.2-12.0); Monocyte# 1.74 X10^3/uL; Monocyte% 13.6 % (0-10); NRBC Flagged by Analyzer 0 % (0-5); Neutrophil # 8.36 X10^3/uL (2.7-7.7); Neutrophil % 65.6 % (47-70); POSITIVE DIFFERENTIAL YES; POSITIVE MORPHOLOGY YES; Platelet Count 224 K/mm3 (150-450); RBC Distribution Width CV 20.3 % (11.6-14.6); RBC Distribution Width SD 58.9 fl (35.1-43.9); Red Blood Count 2.91 M/mm3 (4.2-5.4); White Blood Count 12.8 K/mm3 (4.4-11.0)
[2022-08-20 03:34] LABS: Differential Indicated SCAN CRITERIA MET
[2022-08-20 03:53] LABS: ALB/GLOB Ratio 0.4 RATIO (0.9-2.4); AST(SGOT) 24 U/L (15-37); Alanine Aminotransfer ALT/SGPT 19 U/L (13-56); Albumin, Serum 1.5 g/dL (3.2-5.0); Alkaline Phosphatase 130 U/L (45-117); Anion Gap 6 (5-15); BUN 3 mg/dL (7-18); BUN/Creat Ratio 5.5 RATIO (10-20); Calcium,Total 7.7 mg/dL (8.5-10.1); Chloride 110 mmol/L (98-107); Creatinine, Serum 0.55 mg/dL (0.55-1.02); EST Glomerular Filtration Rate 120 mL/min (>60); Est Glom Filt Rate - Afr Amer 145 mL/min (>60); Estimated Creatinine Clearance 77.15 ml/min; Globulin 3.5 g/dL (2.2-4.2); Glucose 104 mg/dL (74-106); Phosphorus 3.1 mg/dL (2.5-4.9); Potassium 3.5 mmol/L (3.5-5.1); Sodium Level 142 mmol/L (136-145)
[2022-08-20 04:11] LABS: Anisocytosis RARE; Differential Comment SCANNED; Microcytosis RARE
--- NOTE | 2022-08-20 07:02 | PCM.PN.INT ---
Assessment & Plan Assessment/Plan (1) Acute upper gastrointestinal bleeding: PLAN: Plan RECOMMENDATIONS: 1. Continue to monitor H&H and transfuse if hemoglobin drops below 7 g/dL. 2. Continue current antimicrobials for GNR and staph. 3. Add midodrine therapy 4. Wean Levophed to maintain a mean arterial pressure at or above 65 mmHg. 5. Continue PPI therapy. Possible EGD. Gastroenterology is following to assist with medical management. 6. Discontinue Precedex therapy 7. Continue modified diet by speech therapy IMPRESSIONS: 1. Acute hypoxemic respiratory failure The patient was ultimately intubated after she became unresponsive and experienced an emesis event with immediate concern for aspiration. Patient growing GNR and staph from her sputum. Patient appears to be doing well from a respiratory standpoint. Patient does desaturate quickly with removal of supplemental oxygen, but is only requiring 2 to 3 L nasal cannula to maintain saturations. Secretions have been well controlled. 2. Acute blood loss anemia with hemorrhagic shock The patient presented with abdominal pain and hematemesis and required transfusion of blood products due to worsening anemia. Plan to continue to monitor serial H&H and transfuse if hemoglobin drops below 7 g/dL. Continue Protonix as ordered. Patient reinitiated on pressors overnight. We will add midodrine. Gastroenterology is following to assist with medical management. Defer to GI on timing of endoscopy 3. Hypernatremia/hypokalemia Resolved. Continue to monitor chemistry profile daily. 4. History of CVA/hypertension/anxiety/depression/questionable COPD/hypothyroidism/tobacco dependency Complicates care, management, recovery and prognosis. Continue bronchodilators as ordered. TIME: 33 minutes of critical care time, independent of procedures, was spent addressing the patient's acute hypoxemic respiratory failure, blood loss anemia, hemorrhagic shock, review of all data and collaboration with the care team. Subjective Subjective Patient did okay overnight. Patient continues to have intermittent confusion with pulling on her oxygen and attempting to pick at her central line. Patient has been able to be taken off of Precedex therapy, but unfortunately became hypotensive overnight and was reinitiated on Levophed. No significant fevers were noted. Nursing did report patient had expressed visual hallucinations overnight Objective Data Objective Data Vital Signs: Vital Signs Temp Pulse Resp BP Pulse Ox O2 Del Method O2 Flow Rate 37.2 C 91 14 92/56 L 94 Nasal Cannula 2 08/20/22 06:00 08/20/22 06:00 08/20/22 06:00 08/20/22 06:00 08/20/22 06:00 08/20/22 06:00 08/20/22 06:00 FiO2 35 08/19/22 07:00 Oxygen Flow Rate (L/min) 2 Oxygen Delivery Method Nasal Cannula Weight: 51.3 kg Body Mass Index (BMI) 20.2 Intake & Output: Intake and Output for Last 24 Hours 08/18/22 08/19/22 08/20/22 23:59 23:59 23:59 Intake Total 4212.4033 / 4253.7033 3210.48 / 3226.18 89.96 / 89.96 Output Total 1655 / 1655 2125 / 2125 1250 / 1250 Balance 2557.4033 / 2598.7033 1085.48 / 1101.18 -1160.04 / -1160.04 Lab / Micro Data Attestation: I reviewed the patient's lab results. Result Diagrams: 08/20/22 03:25 08/20/22 03:25 Labs: Laboratory Results - last 24 hr 08/20/22 03:25: WBC 12.8 H, RBC 2.91 L, Hgb 7.6 L, Hct 24.4 L, MCV 83.8, MCH 26.1 L, MCHC 31.1 L, RDW Std Deviation 58.9 H, RDW Coeff of Jeanine 20.3 H, Plt Count 224, MPV 9.9, Immature Gran % (Auto) 0.600, Neut % (Auto) 65.6, Lymph % (Auto) 16.8 L, [place] % (Auto) 13.6 H, Eos % (Auto) 3.2, Baso % (Auto) 0.2, Absolute Neuts (auto) 8.4 H, Absolute Lymphs (auto) 2.14, Nucleated RBC % 0, Differential Comment SCANNED, Diff Path Review May foll, Anisocytosis RARE, Microcytosis RARE 08/20/22 03:25: Sodium 142, Potassium 3.5, Chloride 110 H, Carbon Dioxide 26.0, Anion Gap 6, BUN 3 L, Creatinine 0.55, Estim Creat Clear Calc 77.15, Est GFR (MDRD) Af Amer 145, Est GFR (MDRD) Non-Af 120, BUN/Creatinine Ratio 5.5 L, Glucose 104, Calcium 7.7 L, Phosphorus 3.1, Magnesium 2.0, Total Bilirubin 0.40, AST 24, ALT 19, Alkaline Phosphatase 130 H, Total Protein 5.0 L, Albumin 1.5 L, Globulin 3.5, Albumin/Globulin Ratio 0.4 L Micro: Microbiology 08/16/22 04:30 Sputum, Induced/Lukens Gram Stain - Final 08/16/22 04:30 Sputum, Induced/Lukens Respiratory Culture - Final Serratia marcescens Staphylococcus aureus Streptococcus agalactiae (B) 08/16/22 03:40 Urine Catheter - [place] Urine Culture - Final Culture exhibits no growth. 08/16/22 04:54 Blood Culture (Wb) - Anticubital Left Blood Culture - Preliminary No growth in 48 hours. 08/16/22 04:37 Blood Culture (Wb) - Anticubital Right Blood Culture - Preliminary No growth in 48 hours. Rhythm Strip Rhythm Strip: Sinus Tach Rate: 101 Ectopy: None Physical Exam Const alert Constitutional Narrative: Intermittent agitation, but follows commands General Appearance: frail; Negative for ill appearing HEENT normocephalic and head/scalp atraumatic Mouth: endotracheal tube in place and OG tube in place Eyes PERRL, EOMs intact bilaterally, conjunctivae normal and no scleral icterus Neck supple Neck Narrative: Right IJ is clean, dry and intact General: trachea midline and CVC in place Resp Resp Narrative: Poor effort Auscultation: diminished lung sounds; Negative for rales, rhonchi or wheezes Cardio regular rhythm, S1 normal heart sound, S2 normal heart sound, no murmurs, no rub and no gallops Rate: tachycardic GI normal to inspection, nondistended, normoactive bowel sounds Extremity no clubbing, cyanosis or edema Skin no rashes or lesions noted Neuro Sensorium / Orientation: sedated on vent RASS: +1 Psych Mood & Affect: anxious Charges/Coding Visit Charges Inpatient E&M: 68901 [facility] Hosp L3
--- NOTE | 2022-08-20 07:09 | PCM.PN.HOSP ---
Subjective Subjective Follow-up on acute metabolic encephalopathy/acute GI bleed/blood loss anemia: Patient was seen and examined.? Patient is lethargic. She had hypotension overnight and had to be resumed back on Levophed. Per nursing staff, still has garbled speech. Unclear what her baseline is. Objective Data Objective Data Vital Signs: Vital Signs Temp Pulse Resp BP Pulse Ox O2 Del Method O2 Flow Rate 99.0 F 91 14 92/56 L 94 Nasal Cannula 2 08/20/22 06:00 08/20/22 06:00 08/20/22 06:00 08/20/22 06:00 08/20/22 06:00 08/20/22 06:00 08/20/22 06:00 FiO2 35 08/19/22 07:00 Oxygen Flow Rate (L/min) 2 Oxygen Delivery Method Nasal Cannula Weight: 51.3 kg Body Mass Index (BMI) 20.2 Intake & Output: Intake and Output for Last 24 Hours 08/18/22 08/19/22 08/20/22 23:59 23:59 23:59 Intake Total 4212.4033 / 4253.7033 3210.48 / 3226.18 89.96 / 89.96 Output Total 1655 / 1655 2125 / 2125 1250 / 1250 Balance 2557.4033 / 2598.7033 1085.48 / 1101.18 -1160.04 / -1160.04 Lab / Micro Data Result Diagrams: 08/20/22 03:25 08/20/22 03:25 Labs: Laboratory Results - last 24 hr 08/20/22 03:25: WBC 12.8 H, RBC 2.91 L, Hgb 7.6 L, Hct 24.4 L, MCV 83.8, MCH 26.1 L, MCHC 31.1 L, RDW Std Deviation 58.9 H, RDW Coeff of Jeanine 20.3 H, Plt Count 224, MPV 9.9, Immature Gran % (Auto) 0.600, Neut % (Auto) 65.6, Lymph % (Auto) 16.8 L, [place] % (Auto) 13.6 H, Eos % (Auto) 3.2, Baso % (Auto) 0.2, Absolute Neuts (auto) 8.4 H, Absolute Lymphs (auto) 2.14, Nucleated RBC % 0, Differential Comment SCANNED, Diff Path Review May foll, Anisocytosis RARE, Microcytosis RARE 08/20/22 03:25: Sodium 142, Potassium 3.5, Chloride 110 H, Carbon Dioxide 26.0, Anion Gap 6, BUN 3 L, Creatinine 0.55, Estim Creat Clear Calc 77.15, Est GFR (MDRD) Af Amer 145, Est GFR (MDRD) Non-Af 120, BUN/Creatinine Ratio 5.5 L, Glucose 104, Calcium 7.7 L, Phosphorus 3.1, Magnesium 2.0, Total Bilirubin 0.40, AST 24, ALT 19, Alkaline Phosphatase 130 H, Total Protein 5.0 L, Albumin 1.5 L, Globulin 3.5, Albumin/Globulin Ratio 0.4 L Micro: Microbiology 08/16/22 04:30 Sputum, Induced/Lukens Gram Stain - Final 08/16/22 04:30 Sputum, Induced/Lukens Respiratory Culture - Final Serratia marcescens Staphylococcus aureus Streptococcus agalactiae (B) 08/16/22 03:40 Urine Catheter - [place] Urine Culture - Final Culture exhibits no growth. 08/16/22 04:54 Blood Culture (Wb) - Anticubital Left Blood Culture - Preliminary No growth in 48 hours. 08/16/22 04:37 Blood Culture (Wb) - Anticubital Right Blood Culture - Preliminary No growth in 48 hours. Rhythm Strip Rhythm Strip: Sinus Tach Rate: 101 Ectopy: None Physical Exam Narrative Physical exam: General: Alert, oriented to self, unclear if oriented to place or time with patient appears noncoherent, on 2 L of oxygen HEENT: Atraumatic Oral: Moist Mucosa Neck: Supple Lungs: Diminished to auscultation Cardiovascular: HS I+II, regular, no murmurs Abdomen: Bowel Sounds Present, Soft, Non Tender Extremities: No edema Skin: No rashes, No breakdown Neurological: Grossly intact Psych/Mental Status: Appropriate Assessment & Plan Assessment/Plan (1) Acute GI bleeding: PLAN: Plan 1. Acute hypoxic respiratory failure, remains on 2 L of oxygen S/p intubation on admission for primary airway protection Extubated on 08/19/22 morning Repeat chest x-ray prior to extubation shows pulmonary hypo-inflation Continue to wean off for SPO2 more than 92% 2. Acute Serratia marcescens/staph/beta strep pneumonia Patient remains febrile. WBC count is 12.8 Continue on IV ceftriaxone (day 5 of antibiotics) 3. Acute GI bleed secondary to upper GI bleed from probable Leena-Shen tear CT of the abdomen pelvis on 08/15/2022 showed fluid-filled distal esophagus and hiatal hernia GI consulted, EGD planned later Continue on IV PPI twice daily 4. Acute blood loss anemia secondary to #2, Status post 2 units of packed RBCs Hb today is 7.6 , will continue to trend Will transfuse for hemoglobin less than 7 5. Shock likely secondary to hypovolemic vs septic shock, Patient was off Levophed yesterday morning, Restarted on Levophed last night Continue to wean off for MAP more than 65 6. Acute metabolic encephalopathy, unclear baseline Will get more information from family 7. Hypomagnesemia, resolved 8. Hypertension, remains hypotensive, Continue to hold home meds on account of shock 9. Anxiety/depression, home meds on hold 10. COPD/asthma, not in acute exacerbation, on as needed breathing treatments 11. 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 DVT prophylaxis?on SCDs Charges/Coding Visit Charges Inpatient E&M: 38823 Subs Hosp L3
[2022-08-20] MEDS: Midodrine HCl 5 MG Tablet 10 MG PO ×3 (08:07→17:15)
[2022-08-20] MEDS: Senna/Docusate Sodium 1 Tablet 2 TABLET PO ×2 (09:35→21:36)
[2022-08-20] MEDS: QUEtiapine 100 MG Tablet PO ×2 (09:35→21:36)
[2022-08-20] MEDS: CHLORHEXIDINE GLUC 2% CLOTH 1 EACH TOWELETTE TOPICAL (09:38)
[2022-08-20] MEDS: Ceftriaxone 1 GM/50 ML BAG IV (10:43)
[2022-08-20 13:36] LABS: Pathologist Review Reviewed
[2022-08-20] MEDS: buPROPion (SR) 150 MG Tablet.SA PO (21:36)
[2022-08-20] MEDS: DOXEPIN HCL 50 MG CAPSULE 100 MG PO (21:36)
[2022-08-21] VITALS (45 sets, daily range): BP systolic 86–118; BP diastolic 51–69; PULSE 96–113; RESP 12–31; TEMP 36.6–37.6; O2SAT 88–98
--- NOTE | 2022-08-21 00:26 | CPS ---
Pt.'s desaturation while asleep. Increased NC to 6L at this time. Pt. woke up and claimed she wasn't having trouble breathing at this time, and she politely refused a PRN breathing tx. at this time.
[2022-08-21 04:03] LABS: Absolute Lymphocyte Count 2.78 X10^3/uL (0.83-4.51); Absolute Neutrophil Count 7.5 X10^3/uL (2.0-7.7); Basophil# 0.03 X10^3/uL; Basophil% 0.2 % (0-1); Differential Indicated SCAN CRITERIA MET; Eosinophil# 0.62 X10^3/uL; Eosinophils% 4.8 % (0-5); Hematocrit 24.3 % (37-47); Hemoglobin 7.5 g/dL (12.0-15.0); Lymphocyte # 2.78 X10^3/ul (0.83-4.51); Lymphocyte % 21.6 % (19-41); Mean Corp Hgb Conc 30.9 g/dL (32-36); Mean Corpuscular Hgb 26.1 pg (27.0-32.0); Mean Corpuscular Volume 84.7 fL (81-99); Mean Platelet Vol. 10.3 fl (6.2-12.0); Monocyte# 1.89 X10^3/uL; Monocyte% 14.7 % (0-10); NRBC Flagged by Analyzer 0 % (0-5); Neutrophil # 7.46 X10^3/uL (2.7-7.7); Neutrophil % 57.8 % (47-70); POSITIVE DIFFERENTIAL YES; POSITIVE MORPHOLOGY YES; Platelet Count 265 K/mm3 (150-450); RBC Distribution Width CV 21.2 % (11.6-14.6); RBC Distribution Width SD 63.6 fl (35.1-43.9); Red Blood Count 2.87 M/mm3 (4.2-5.4); White Blood Count 12.9 K/mm3 (4.4-11.0)
[2022-08-21 04:18] LABS: Anion Gap 6 (5-15); BUN 2 mg/dL (7-18); BUN/Creat Ratio 3.6 RATIO (10-20); Calcium,Total 7.8 mg/dL (8.5-10.1); Chloride 110 mmol/L (98-107); Creatinine, Serum 0.55 mg/dL (0.55-1.02); EST Glomerular Filtration Rate 119 mL/min (>60); Est Glom Filt Rate - Afr Amer 143 mL/min (>60); Estimated Creatinine Clearance 77.15 ml/min; Glucose 94 mg/dL (74-106); Potassium 3.9 mmol/L (3.5-5.1); Sodium Level 143 mmol/L (136-145)
[2022-08-21 04:20] LABS: Anisocytosis RARE; Differential Comment SCANNED; Microcytosis RARE; Ovalocyte RARE
[2022-08-21] MEDS: Ipratropium/Albuterol Sulfate 3 ML AMPUL.NEB INHALATION ×2 (06:54→19:04)
--- NOTE | 2022-08-21 07:32 | PN.CC_ITS ---
Assessment & Plan Assessment/Plan (1) Acute upper gastrointestinal bleeding: PLAN: Plan RECOMMENDATIONS: 1. Continue to monitor H&H and transfuse if hemoglobin drops below 7 g/dL. 2. Continue current antimicrobials to complete a 12-day course 3. Continue midodrine therapy, modify dosing schedule. Check cortisol level 4. Wean Levophed to maintain a mean arterial pressure at or above 65 mmHg. 5. Continue PPI therapy. Possible EGD. Gastroenterology is following to assist with medical management. 6. Discontinue Seroquel therapy 7. Continue modified diet by speech therapy IMPRESSIONS: 1. Acute hypoxemic respiratory failure The patient was ultimately intubated after she became unresponsive and experienced an emesis event with immediate concern for aspiration. Patient growing Serratia and staph from her sputum. Patient appears to be doing well from a respiratory standpoint. Patient does desaturate quickly with removal of supplemental oxygen, but is only requiring 2 to 3 L nasal cannula to maintain saturations. Secretions have been well controlled. We will check a chest x-ray 2. Acute blood loss anemia with hemorrhagic shock The patient presented with abdominal pain and hematemesis and required transfusion of blood products due to worsening anemia. Plan to continue to monitor serial H&H and transfuse if hemoglobin drops below 7 g/dL. Continue Protonix as ordered. Patient reinitiated on pressors overnight. No active GI bleed appreciated, but patient continues to be hypotensive requiring pressor therapy. We will check a cortisol level for possible adrenal insufficiency. No indication for transfusion at this time. 3. Hypernatremia/hypokalemia Resolved. Continue to monitor chemistry profile daily. 4. History of CVA/hypertension/anxiety/depression/questionable COPD/hypothyroidism/tobacco dependency Complicates care, management, recovery and prognosis. Continue bronchodilators as ordered. TIME: 31 minutes of critical care time, independent of procedures, was spent addressing the patient's acute hypoxemic respiratory failure, blood loss anemia, hemorrhagic shock, review of all data and collaboration with the care team. Subjective Subjective Patient did well overnight. Patient was reinitiated on baseline mood medications. Patient is much less impulsive overnight. Patient has persisted in her need for Levophed. Patient is complaining of some left upper extremity pain, but states this is normal for her. No active GI bleeding has been noted by patient or nursing. Objective Data Objective Data Vital Signs: Vital Signs Temp Pulse Resp BP Pulse Ox O2 Del Method O2 Flow Rate 37.3 C 101 H 22 H 113/57 L 94 Nasal Cannula 3 08/21/22 04:00 08/21/22 07:00 08/21/22 07:00 08/21/22 07:00 08/21/22 07:00 08/21/22 07:00 08/21/22 07:00 FiO2 35 08/19/22 07:00 Oxygen Flow Rate (L/min) 3 Oxygen Delivery Method Nasal Cannula Weight: 51.7 kg Body Mass Index (BMI) 20.2 Intake & Output: Intake and Output for Last 24 Hours 08/19/22 08/20/22 08/21/22 23:59 23:59 23:59 Intake Total 3210.48 / 3226.18 1957.35 / 1964.85 1070.0 / 1070.0 Output Total 2125 / 2125 3050 / 3050 900 / 900 Balance 1085.48 / 1101.18 -1092.65 / -1085.15 170.0 / 170.0 Lab / Micro Data Attestation: I reviewed the patient's lab results. Result Diagrams: 08/21/22 03:35 08/21/22 03:35 Labs: Laboratory Results - last 24 hr 08/15/22 16:20: Crossmatch See Detail 08/20/22 03:25: Diff Path Review Reviewed 08/21/22 03:35: WBC 12.9 H, RBC 2.87 L, Hgb 7.5 L, Hct 24.3 L, MCV 84.7, MCH 26.1 L, MCHC 30.9 L, RDW Std Deviation 63.6 H, RDW Coeff of Jeanine 21.2 H, Plt Count 265, MPV 10.3, Immature Gran % (Auto) 0.900, Neut % (Auto) 57.8, Lymph % (Auto) 21.6, [place] % (Auto) 14.7 H, Eos % (Auto) 4.8, Baso % (Auto) 0.2, Absolute Neuts (auto) 7.5, Absolute Lymphs (auto) 2.78, Nucleated RBC % 0, Differential Comment SCANNED, Diff Path Review May foll, Anisocytosis RARE, Microcytosis RARE, Ovalocytes RARE 08/21/22 03:35: Sodium 143, Potassium 3.9, Chloride 110 H, Carbon Dioxide 27.0, Anion Gap 6, BUN 2 L, Creatinine 0.55, Estim Creat Clear Calc 77.15, Est GFR (MDRD) Af Amer 143, Est GFR (MDRD) Non-Af 119, BUN/Creatinine Ratio 3.6 L, Glucose 94, Calcium 7.8 L Micro: Microbiology 08/16/22 04:30 Sputum, Induced/Lukens Gram Stain - Final 08/16/22 04:30 Sputum, Induced/Lukens Respiratory Culture - Final Serratia marcescens Staphylococcus aureus Streptococcus agalactiae (B) 08/16/22 03:40 Urine Catheter - [place] Urine Culture - Final Culture exhibits no growth. 08/16/22 04:54 Blood Culture (Wb) - Anticubital Left Blood Culture - Preliminary No growth in 48 hours. 08/16/22 04:37 Blood Culture (Wb) - Anticubital Right Blood Culture - Preliminary No growth in 48 hours. Rhythm Strip Rhythm Strip: Sinus Tach Rate: 102 Ectopy: None Physical Exam Const alert General Appearance: frail; Negative for ill appearing HEENT normocephalic and head/scalp atraumatic Eyes PERRL, EOMs intact bilaterally, conjunctivae normal and no scleral icterus Neck supple Neck Narrative: Right IJ is clean, dry and intact General: trachea midline and CVC in place Resp Resp Narrative: Poor effort Auscultation: diminished lung sounds; Negative for rales, rhonchi or wheezes Cardio regular rhythm, S1 normal heart sound, S2 normal heart sound, no murmurs, no rub and no gallops Rate: tachycardic GI normal to inspection, nondistended, normoactive bowel sounds Extremity no clubbing, cyanosis or edema Skin no rashes or lesions noted Psych Mood & Affect: anxious Charges/Coding Procedures Hospitalists Procedures: 60231 Critial Care 1st Hr
--- NOTE | 2022-08-21 07:41 | RAD_ITS ---
STUDY: X-RAY CHEST REASON FOR EXAM: Female, 62 years old. Hypoxia TECHNIQUE: Single AP portable view of the chest. COMPARISON: Comparison is made with prior studies 08/16/2022. FINDINGS: The endotracheal tube has been removed. A right-sided central line is in situ. The tip is in the right atrium. EKG electrodes are seen. There are small bilateral pleural effusions with bibasilar infiltrates worse in the posterior medial segment of the left lower lobe. There is no demonstrated pleural abnormality. Normal size heart. Normal mediastinum and luc. Normal visualized pulmonary arteries. Normal visualized aortic arch and descending thoracic aorta. Normal visualized thoracic spine. Healed proximal left humeral fracture with deformity. Healed lateral rib fractures. There is no demonstrated abnormality of the visualized soft tissue structures of the upper abdomen. RAD/Chest 1 View (Portable) IMPRESSION: Small bilateral pleural effusions with bibasilar infiltrates worse in the posterior medial segment of the left lower lobe. Electronically Signed: Damon Hayes MD at 10:12 EDT ,
[2022-08-21] MEDS: Midodrine HCl 5 MG Tablet 10 MG PO ×3 (08:07→17:15)
[2022-08-21 08:11] LABS: Platelet Count 278 K/mm3 (150-450); RET-HE 28.3 pg (30-35); Reticulocyte Count 2.17 % (0.5-1.5)
[2022-08-21 08:41] LABS: Ferritin 51 ng/mL (8-252); Iron 9 ug/dL (50-170); Iron Binding Capacity,Total 180 ug/dL (250-450)
--- NOTE | 2022-08-21 08:51 | ECHOCS_ITS ---
Reason For Study: Hypotension Procedure This was a 2D Doppler, Color Flow transthoracic echocardiogram. The study was technically difficult. Contrast injection was performed. Exam performed portable in ICU/CCU. Left Ventricle Normal LV size. The estimated ejection fraction is 65 %. Normal diastology for age. No regional wall motion abnormalities noted. Right Ventricle Normal RV size. Normal systolic function. Atria Normal left atrium. Normal right atrium. No doppler evidence for ASD. Mitral Valve There is no mitral valve stenosis. No mitral valve insufficiency. Tricuspid Valve There is no tricuspid stenosis. Unable to estimate RV systolic pressure due to inadequate jet, pulmonary artery pressure probably normal. Aortic Valve Trisinus/trileaflet aortic valve. There is no aortic stenosis. No aortic valve insufficiency. Pulmonic Valve There is no pulmonic valvular stenosis. No pulmonic valve insufficiency. Great Vessels Normal aortic root. Pericardium/Pleural Trivial pericardial effusion. Medication Diluted definity 1ml given slow IV push to enhance endocardial definition. MMode/2D Measurements & Calculations LVIDd: 3.6 cm IVSd: 0.77 cm LA dimension: 3.2 cm LVIDs: 2.2 cm LVPWd: 0.74 cm FS: 39.8 % LAV(MOD-sp4): 16.1 ml LA A4 area: 8.8 cm2 RA A4 area: 9.3 cm2 Time Measurements MV dec time: 0.18 sec Doppler Measurements & Calculations MV E max santi: 70.8 cm/sec Lat Peak E' Santi: 12.8 cm/sec Med Peak E' Santi: 8.0 cm/sec MV A max santi: 105.9 cm/sec E/E' lat: 5.5 E/E' med: 8.8 MV E/A: 0.67 MV V2 max: 120.1 cm/sec MV P1/2t max santi: 78.8 cm/sec Ao V2 max: 125.5 cm/sec MV max P.8 mmHg MV P1/2t: 85.0 msec Ao max P.3 mmHg MV V2 mean: 63.0 cm/sec MV dec slope: 271.4 cm/sec2 MV mean P.9 mmHg MV V2 VTI: 22.7 cm MVA(P1/2t): 2.6 cm2 LV V1 max: 107.0 cm/sec PA V2 max: 99.5 cm/sec LV V1 max P.6 mmHg LV V1 mean P.2 mmHg LV V1 mean: 68.2 cm/sec LV V1 VTI: 19.7 cm ECHO/Echo Complete W/ Contrast Interpretation Summary The estimated ejection fraction is 65 %. Trivial pericardial effusion. Ordering Physician: Todd Mcfarlane Referring Physician: Zachary Vargas Chi Performed By: Erik Stewart RCS
--- NOTE | 2022-08-21 09:07 | PCM.PN.HOSP ---
Subjective Subjective Follow-up on acute metabolic encephalopathy/acute GI bleed/blood loss anemia: Patient was seen and examined.?She is much more awake. She remains on Levophed. She is alert oriented x3. Seroquel discontinued this morning. Objective Data Objective Data Vital Signs: Vital Signs Temp Pulse Resp BP Pulse Ox O2 Del Method O2 Flow Rate 99.3 F H 105 H 19 H 97/56 L 94 Nasal Cannula 5 08/21/22 08:00 08/21/22 08:00 08/21/22 08:00 08/21/22 08:00 08/21/22 08:00 08/21/22 08:00 08/21/22 08:00 FiO2 35 08/19/22 07:00 Oxygen Flow Rate (L/min) 5 Oxygen Delivery Method Nasal Cannula Weight: 51.7 kg Body Mass Index (BMI) 20.2 Intake & Output: Intake and Output for Last 24 Hours 08/19/22 08/20/22 08/21/22 23:59 23:59 23:59 Intake Total 3210.48 / 3226.18 1957.35 / 1964.85 1077.5 / 1077.5 Output Total 2125 / 2125 3050 / 3050 900 / 900 Balance 1085.48 / 1101.18 -1092.65 / -1085.15 177.5 / 177.5 Lab / Micro Data Result Diagrams: 08/21/22 03:35 08/21/22 03:35 Labs: Laboratory Results - last 24 hr 08/15/22 16:20: Crossmatch See Detail 08/20/22 03:25: Diff Path Review Reviewed 08/21/22 03:35: WBC 12.9 H, RBC 2.87 L, Hgb 7.5 L, Hct 24.3 L, MCV 84.7, MCH 26.1 L, MCHC 30.9 L, RDW Std Deviation 63.6 H, RDW Coeff of Jeanine 21.2 H, Plt Count 265, MPV 10.3, Immature Gran % (Auto) 0.900, Neut % (Auto) 57.8, Lymph % (Auto) 21.6, [place] % (Auto) 14.7 H, Eos % (Auto) 4.8, Baso % (Auto) 0.2, Absolute Neuts (auto) 7.5, Absolute Lymphs (auto) 2.78, Nucleated RBC % 0, Differential Comment SCANNED, Diff Path Review May foll, Anisocytosis RARE, Microcytosis RARE, Ovalocytes RARE 08/21/22 03:35: Sodium 143, Potassium 3.9, Chloride 110 H, Carbon Dioxide 27.0, Anion Gap 6, BUN 2 L, Creatinine 0.55, Estim Creat Clear Calc 77.15, Est GFR (MDRD) Af Amer 143, Est GFR (MDRD) Non-Af 119, BUN/Creatinine Ratio 3.6 L, Glucose 94, Calcium 7.8 L 08/21/22 03:35: Retic Count 2.17 H, Immature Retic Fraction 28.60 H, Retic Hgb Equivalent 28.3 L 08/21/22 03:35: Iron 9 L, TIBC 180 L, Iron Saturation 5.0 L, Ferritin 51 Micro: Microbiology 08/16/22 04:54 Blood Culture (Wb) - Anticubital Left Blood Culture - Final No growth in 5 days. 08/16/22 04:37 Blood Culture (Wb) - Anticubital Right Blood Culture - Final No growth in 5 days. 08/16/22 04:30 Sputum, Induced/Lukens Gram Stain - Final 08/16/22 04:30 Sputum, Induced/Lukens Respiratory Culture - Final Serratia marcescens Staphylococcus aureus Streptococcus agalactiae (B) 08/16/22 03:40 Urine Catheter - [place]roe Urine Culture - Final Culture exhibits no growth. Rhythm Strip Rhythm Strip: Sinus Tach Rate: 102 Ectopy: None Physical Exam Narrative Physical exam: General: Alert, oriented x3, not pale, or jaundiced, appears very frail, on 6 L of oxygen HEENT: Atraumatic Oral: Moist Mucosa Neck: Supple Lungs: Diminished to auscultation Cardiovascular: HS I+II, regular, no murmurs Abdomen: Bowel Sounds Present, Soft, Non Tender Extremities: No edema Skin: No rashes, No breakdown Neurological: Grossly intact Psych/Mental Status: Appropriate Assessment & Plan Assessment/Plan (1) Acute GI bleeding: PLAN: Plan 1. Acute hypoxic respiratory failure, slightly worse, on 5-6 L oxygen S/p intubation on admission for primary airway protection Extubated on 08/19/22 morning Continue to wean off for SPO2 more than 92% If she continues to require more oxygen, will check repeat chest x-ray 2. Acute Serratia marcescens/staph/beta strep pneumonia Blood cultures show no growth x5 days Patient remains febrile. WBC count is 12.8 Continue on IV ceftriaxone (day 6 of antibiotics) 3. Acute GI bleed secondary to upper GI bleed from probable Leena-Shen tear CT of the abdomen pelvis on 08/15/2022 showed fluid-filled distal esophagus and hiatal hernia GI consulted. EGD planned later Continue on IV PPI twice daily 4. Acute blood loss anemia secondary to #2, Status post 2 units of packed RBCs Hb today is 7.6 , will continue to trend Will transfuse for hemoglobin less than 7 5. Shock, unclear etiology, remains on Levophed Doubt hypovolemic vs septic shock -patient has received fluids and IV antibiotics Continue on Levophed Cortisol level pending 2D echo pending Continue to wean off for MAP more than 65 6. Acute metabolic encephalopathy, appears improved, continue to monitor 7. Hypomagnesemia, resolved 8. Hypertension, remains hypotensive, Continue to hold home meds on account of shock 9. Anxiety/depression, home meds on hold 10. COPD/asthma, not in acute exacerbation, on as needed breathing treatments 11. 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 DVT prophylaxis?on SCDs Charges/Coding Visit Charges Inpatient E&M: 87730 Subs Hosp L2
[2022-08-21] MEDS: buPROPion (SR) 150 MG Tablet.SA PO ×2 (10:37→21:34)
[2022-08-21] MEDS: Senna/Docusate Sodium 1 Tablet 2 TABLET PO ×2 (10:37→21:33)
[2022-08-21] MEDS: Potassium Chloride Oral Tablet 20 MEQ PO (10:38)
[2022-08-21] MEDS: Paroxetine 20 MG Tablet PO (10:38)
[2022-08-21] MEDS: Ceftriaxone 1 GM/50 ML BAG IV (11:08)
[2022-08-21 12:55] LABS: Pathologist Review Reviewed
--- NOTE | 2022-08-21 14:44 | CASEMGMT ---
SW met with patient and her sister Dian. SW introduced self and role at [facility]. SW let them know therapy is recommending patient go to a [facility] facility for rehab. Both patient and her sister agree. SW provided them with a list of SNF providers including quality and resource use data and consistent with patient?s preferred geographic region, medical needs, and insurance network were provided from the [employer]. SW let them know we just ask that they pick at least 3 facilities they would be okay with patient going. Plan: SNF pending patient choice, acceptance, and insurance approval. Mariann Cosby [employer]
[2022-08-21] MEDS: Acetaminophen 325 MG Tablet 650 MG PO (17:17)
[2022-08-21] MEDS: DOXEPIN HCL 50 MG CAPSULE 100 MG PO (21:33)
[2022-08-22] VITALS (34 sets, daily range): BP systolic 88–119; BP diastolic 51–69; PULSE 92–121; RESP 18–36; TEMP 36.6–37.2; O2SAT 79–100
[2022-08-22] MEDS: 0.9% Saline Lock 10 ML Syringe IV ×3 (04:24→21:38)
[2022-08-22 04:30] LABS: Absolute Lymphocyte Count 2.75 X10^3/uL (0.83-4.51); Absolute Neutrophil Count 6.8 X10^3/uL (2.0-7.7); Basophil# 0.07 X10^3/uL; Basophil% 0.6 % (0-1); Eosinophil# 0.66 X10^3/uL; Eosinophils% 5.4 % (0-5); Hematocrit 24.4 % (37-47); Hemoglobin 7.3 g/dL (12.0-15.0); Lymphocyte # 2.75 X10^3/ul (0.83-4.51); Lymphocyte % 22.4 % (19-41); Mean Corp Hgb Conc 29.9 g/dL (32-36); Mean Corpuscular Hgb 25.6 pg (27.0-32.0); Mean Corpuscular Volume 85.6 fL (81-99); Mean Platelet Vol. 10.4 fl (6.2-12.0); Monocyte# 1.91 X10^3/uL; Monocyte% 15.5 % (0-10); NRBC Flagged by Analyzer 0 % (0-5); Neutrophil # 6.77 X10^3/uL (2.7-7.7); POSITIVE DIFFERENTIAL YES; POSITIVE MORPHOLOGY YES; Platelet Count 295 K/mm3 (150-450); RBC Distribution Width CV 21.3 % (11.6-14.6); RBC Distribution Width SD 65.3 fl (35.1-43.9); Red Blood Count 2.85 M/mm3 (4.2-5.4); White Blood Count 12.3 K/mm3 (4.4-11.0)
[2022-08-22 04:34] LABS: Differential Indicated SCAN CRITERIA MET
[2022-08-22 05:59] LABS: ALB/GLOB Ratio 0.4 RATIO (0.9-2.4); AST(SGOT) 23 U/L (15-37); Alanine Aminotransfer ALT/SGPT 23 U/L (13-56); Albumin, Serum 1.4 g/dL (3.2-5.0); Alkaline Phosphatase 149 U/L (45-117); Anion Gap 6 (5-15); BUN 4 mg/dL (7-18); BUN/Creat Ratio 7.6 RATIO (10-20); Calcium,Total 7.8 mg/dL (8.5-10.1); Chloride 111 mmol/L (98-107); Creatinine, Serum 0.53 mg/dL (0.55-1.02); EST Glomerular Filtration Rate 125 mL/min (>60); Est Glom Filt Rate - Afr Amer 151 mL/min (>60); Estimated Creatinine Clearance 80.07 ml/min; Globulin 3.5 g/dL (2.2-4.2); Glucose 78 mg/dL (74-106); Potassium 3.6 mmol/L (3.5-5.1); Protein, Total 4.9 g/dL (6.4-8.2); Sodium Level 144 mmol/L (136-145)
[2022-08-22 06:40] LABS: Anisocytosis RARE; Differential Comment SCANNED; Microcytosis RARE; Ovalocyte RARE
--- NOTE | 2022-08-22 07:02 | PCM.PN.INT ---
Assessment & Plan Assessment/Plan (1) Acute upper gastrointestinal bleeding: PLAN: Plan RECOMMENDATIONS: 1. Continue to monitor H&H and transfuse if hemoglobin drops below 7 g/dL. 2. Continue current antimicrobials to complete a 12-day course 3. Continue midodrine therapy. 4. 24 hours of stress dose steroids 5. Continue PPI therapy. Possible EGD. Gastroenterology is following to assist with medical management. 6. Encourage incentive spirometer 7. Continue modified diet by speech therapy IMPRESSIONS: 1. Acute hypoxemic respiratory failure The patient was ultimately intubated after she became unresponsive and experienced an emesis event with immediate concern for aspiration. Patient growing Serratia and staph from her sputum. Patient appears to be doing well from a respiratory standpoint. Chest x-ray showed some basilar atelectasis. Encourage incentive spirometer. This may be possible with improved mentation. Patient does have a wet cough, but no production. May add Acapella therapy. 2. Acute blood loss anemia with hemorrhagic shock The patient presented with abdominal pain and hematemesis and required transfusion of blood products due to worsening anemia. Plan to continue to monitor serial H&H and transfuse if hemoglobin drops below 7 g/dL. Continue Protonix as ordered. Patient reinitiated on pressors overnight. Cortisol level was normal yesterday despite hypotension. Patient may have an element of relative adrenal insufficiency. We will give patient a 24-hour challenge of stress dose steroids given pressures are still kind of marginal. 3. Hypernatremia/hypokalemia Resolved. Continue to monitor chemistry profile daily. 4. History of CVA/hypertension/anxiety/depression/questionable COPD/hypothyroidism/tobacco dependency Complicates care, management, recovery and prognosis. Continue bronchodilators as ordered. Subjective Subjective Patient did okay overnight. No acute issues were reported. Patient did have a couple soft blood pressures, but pressors did not have to be reinitiated. No fevers were reported. Patient subjectively feels slightly improved compared to yesterday. Mentation is much improved off of Seroquel therapy. Patient does have a wet cough, but no production has been reported. Objective Data Objective Data Vital Signs: Vital Signs Temp Pulse Resp BP Pulse Ox O2 Del Method O2 Flow Rate 36.6 C 94 20 H 95/60 100 Nasal Cannula 5 08/22/22 04:00 08/22/22 07:00 08/22/22 07:00 08/22/22 07:00 08/22/22 07:00 08/22/22 07:00 08/22/22 07:00 FiO2 35 08/19/22 07:00 Oxygen Flow Rate (L/min) 5 Oxygen Delivery Method Nasal Cannula Weight: 49.1 kg Body Mass Index (BMI) 20.2 Intake & Output: Intake and Output for Last 24 Hours 08/20/22 08/21/22 08/22/22 23:59 23:59 23:59 Intake Total 1957.35 / 1964.85 2308.49 / 2308.49 0 / 0 Output Total 3050 / 3050 2325 / 2325 350 / 350 Balance -1092.65 / -1085.15 -16.51 / -16.51 -350 / -350 Lab / Micro Data Attestation: I reviewed the patient's lab results. Result Diagrams: 08/22/22 04:20 08/22/22 04:20 Labs: Laboratory Results - last 24 hr 08/21/22 03:35: Diff Path Review Reviewed 08/21/22 03:35: Retic Count 2.17 H, Immature Retic Fraction 28.60 H, Retic Hgb Equivalent 28.3 L 08/21/22 03:35: Iron 9 L, TIBC 180 L, Iron Saturation 5.0 L, Ferritin 51 08/21/22 06:34: Cortisol 13.90 08/22/22 04:20: WBC 12.3 H, RBC 2.85 L, Hgb 7.3 L, Hct 24.4 L, MCV 85.6, MCH 25.6 L, MCHC 29.9 L, RDW Std Deviation 65.3 H, RDW Coeff of Jeanine 21.3 H, Plt Count 295, MPV 10.4, Immature Gran % (Auto) 1.100 H, Neut % (Auto) 55.0, Lymph % (Auto) 22.4, Mccone % (Auto) 15.5 H, Eos % (Auto) 5.4 H, Baso % (Auto) 0.6, Absolute Neuts (auto) 6.8, Absolute Lymphs (auto) 2.75, Nucleated RBC % 0, Differential Comment SCANNED, Diff Path Review May foll, Anisocytosis RARE, Microcytosis RARE, Ovalocytes RARE 08/22/22 04:20: Sodium 144, Potassium 3.6, Chloride 111 H, Carbon Dioxide 27.0, Anion Gap 6, BUN 4 L, Creatinine 0.53 L, Estim Creat Clear Calc 80.07, Est GFR (MDRD) Af Amer 151, Est GFR (MDRD) Non-Af 125, BUN/Creatinine Ratio 7.6 L, Glucose 78, Calcium 7.8 L, Total Bilirubin 0.30, AST 23, ALT 23, Alkaline Phosphatase 149 H, Total Protein 4.9 L, Albumin 1.4 L, Globulin 3.5, Albumin/Globulin Ratio 0.4 L Micro: Microbiology 08/16/22 04:54 Blood Culture (Wb) - Anticubital Left Blood Culture - Final No growth in 5 days. 08/16/22 04:37 Blood Culture (Wb) - Anticubital Right Blood Culture - Final No growth in 5 days. 08/16/22 04:30 Sputum, Induced/Lukens Gram Stain - Final 08/16/22 04:30 Sputum, Induced/Lukens Respiratory Culture - Final Serratia marcescens Staphylococcus aureus Streptococcus agalactiae (B) 08/16/22 03:40 Urine Catheter - [place]roe Urine Culture - Final Culture exhibits no growth. Radiography Diagnostic Testing: Radiology Impression Chest X-Ray 08/21/22 07:41 IMPRESSION: Small bilateral pleural effusions with bibasilar infiltrates worse in the posterior medial segment of the left lower lobe. Electronically Signed: Damon Hayes MD at 10:12 EDT Reading Location ID and State: [facility] / [place] , Service support , Echocardiogram 08/21/22 08:51 Interpretation Summary The estimated ejection fraction is 65 %. Trivial pericardial effusion. Ordering Physician: Todd Mcfarlane Referring Physician: Zachary Vargas Chi Performed By: Erik Stewart RCS Rhythm Strip Rhythm Strip: Sinus Tach Rate: 102 Ectopy: None Physical Exam Const alert and no apparent distress Constitutional Narrative: Sitting in the chair on my evaluation General Appearance: frail; Negative for ill appearing HEENT normocephalic and head/scalp atraumatic Eyes PERRL, EOMs intact bilaterally, conjunctivae normal and no scleral icterus Neck supple Neck Narrative: Right IJ is clean, dry and intact General: trachea midline and CVC in place Resp Resp Narrative: Poor effort Auscultation: diminished lung sounds; Negative for rales, rhonchi or wheezes Cardio regular rate, regular rhythm, S1 normal heart sound, S2 normal heart sound, no murmurs, no rub and no gallops GI normal to inspection, nondistended, normoactive bowel sounds Extremity no clubbing, cyanosis or edema Skin no rashes or lesions noted Psych Mood & Affect: anxious Charges/Coding Visit Charges Inpatient E&M: 21737 Subs Hosp L3
[2022-08-22] MEDS: Ipratropium/Albuterol Sulfate 3 ML AMPUL.NEB INHALATION ×3 (07:12→18:55)
--- NOTE | 2022-08-22 08:08 | PCM.PN.HOSP ---
Subjective Subjective Follow-up on acute metabolic encephalopathy/acute GI bleed/blood loss anemia: Patient was seen and examined.? She is much awake and alert. She remains on4 L of oxygen. Chest x-ray done on 08/08/2022 showed small bilateral pleural effusion and bibasilar infiltrates, worse in the left lower lobe. She is off Levophed. Remains off Precedex Objective Data Objective Data Vital Signs: Vital Signs Temp Pulse Resp BP Pulse Ox O2 Del Method O2 Flow Rate 98 F 94 20 H 95/60 100 Nasal Cannula 5 08/22/22 04:00 08/22/22 07:00 08/22/22 07:00 08/22/22 07:00 08/22/22 07:00 08/22/22 07:00 08/22/22 07:00 FiO2 35 08/19/22 07:00 Oxygen Flow Rate (L/min) 5 Oxygen Delivery Method Nasal Cannula Weight: 49.1 kg Body Mass Index (BMI) 20.2 Intake & Output: Intake and Output for Last 24 Hours 08/20/22 08/21/22 08/22/22 23:59 23:59 23:59 Intake Total 1957.35 / 1964.85 2308.49 / 2308.49 0 / 0 Output Total 3050 / 3050 2325 / 2325 350 / 350 Balance -1092.65 / -1085.15 -16.51 / -16.51 -350 / -350 Lab / Micro Data Result Diagrams: 08/22/22 04:20 08/22/22 04:20 Labs: Laboratory Results - last 24 hr 08/21/22 03:35: Diff Path Review Reviewed 08/21/22 03:35: Retic Count 2.17 H, Immature Retic Fraction 28.60 H, Retic Hgb Equivalent 28.3 L 08/21/22 03:35: Iron 9 L, TIBC 180 L, Iron Saturation 5.0 L, Ferritin 51 08/21/22 06:34: Cortisol 13.90 08/22/22 04:20: WBC 12.3 H, RBC 2.85 L, Hgb 7.3 L, Hct 24.4 L, MCV 85.6, MCH 25.6 L, MCHC 29.9 L, RDW Std Deviation 65.3 H, RDW Coeff of Jeanine 21.3 H, Plt Count 295, MPV 10.4, Immature Gran % (Auto) 1.100 H, Neut % (Auto) 55.0, Lymph % (Auto) 22.4, [place] % (Auto) 15.5 H, Eos % (Auto) 5.4 H, Baso % (Auto) 0.6, Absolute Neuts (auto) 6.8, Absolute Lymphs (auto) 2.75, Nucleated RBC % 0, Differential Comment SCANNED, Diff Path Review May foll, Anisocytosis RARE, Microcytosis RARE, Ovalocytes RARE 08/22/22 04:20: Sodium 144, Potassium 3.6, Chloride 111 H, Carbon Dioxide 27.0, Anion Gap 6, BUN 4 L, Creatinine 0.53 L, Estim Creat Clear Calc 80.07, Est GFR (MDRD) Af Amer 151, Est GFR (MDRD) Non-Af 125, BUN/Creatinine Ratio 7.6 L, Glucose 78, Calcium 7.8 L, Total Bilirubin 0.30, AST 23, ALT 23, Alkaline Phosphatase 149 H, Total Protein 4.9 L, Albumin 1.4 L, Globulin 3.5, Albumin/Globulin Ratio 0.4 L Micro: Microbiology 08/16/22 04:54 Blood Culture (Wb) - Anticubital Left Blood Culture - Final No growth in 5 days. 08/16/22 04:37 Blood Culture (Wb) - Anticubital Right Blood Culture - Final No growth in 5 days. 08/16/22 04:30 Sputum, Induced/Lukens Gram Stain - Final 08/16/22 04:30 Sputum, Induced/Lukens Respiratory Culture - Final Serratia marcescens Staphylococcus aureus Streptococcus agalactiae (B) 08/16/22 03:40 Urine Catheter - [place]roe Urine Culture - Final Culture exhibits no growth. Radiography Diagnostic Testing: Radiology Impression Chest X-Ray 08/21/22 07:41 IMPRESSION: Small bilateral pleural effusions with bibasilar infiltrates worse in the posterior medial segment of the left lower lobe. Electronically Signed: Damon Hayes MD at 10:12 EDT , Echocardiogram 08/21/22 08:51 Interpretation Summary The estimated ejection fraction is 65 %. Trivial pericardial effusion. Ordering Physician: Todd Mcfarlane Referring Physician: Zachary Vargas Chi Performed By: Erik Stewart RCS Rhythm Strip Rhythm Strip: Sinus Tach Rate: 102 Ectopy: None Physical Exam Narrative Physical exam: General: Alert, oriented x3, not pale, or jaundiced, appears very frail, on 4 L of oxygen HEENT: Atraumatic Oral: Moist Mucosa Neck: Supple Lungs: Diminished to auscultation Cardiovascular: HS I+II, regular, no murmurs Abdomen: Bowel Sounds Present, Soft, Non Tender Extremities: No edema Skin: No rashes, No breakdown Neurological: Grossly intact Psych/Mental Status: Appropriate Assessment & Plan Assessment/Plan (1) Acute GI bleeding: PLAN: Plan 1. Acute hypoxic respiratory failure, improved, on 4 L oxygen S/p intubation on admission for primary airway protection Extubated on 08/19/22 morning Chest x-ray on 08/08/22 showed bilateral pleural effusion, bibasilar atelectasis Continue to wean off for SPO2 more than 92% 2. Acute Serratia marcescens/staph/beta strep pneumonia Blood cultures show no growth x5 days Patient remains febrile. WBC count is 12.8 Continue on IV ceftriaxone (day 7 of antibiotics) 3. Acute GI bleed secondary to upper GI bleed from probable Leena-Shen tear CT of the abdomen pelvis on 08/15/2022 showed fluid-filled distal esophagus and hiatal hernia GI consulted. EGD planned later Continue on IV PPI twice daily 4. Acute blood loss anemia secondary to #2, Status post 2 units of packed RBCs Hb today is 7.3 , will continue to trend Will transfuse for hemoglobin less than 7 5. Shock, unclear etiology, remains on Levophed Doubt hypovolemic vs septic shock -patient has received fluids and IV antibiotics Off Levophed, cortisol level was 13.90 Started on stress dose steroids 2D echo shows EF of 65%, trivial pericardial effusion Continue to wean off for MAP more than 65 6. Acute metabolic encephalopathy, appears resolved 7. Hypomagnesemia, resolved 8. Hypertension, remains hypotensive, Continue to hold home meds on account of shock 9. Anxiety/depression, home meds on hold 10. COPD/asthma, not in acute exacerbation, on as needed breathing treatments 11. 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 DVT prophylaxis?on SCDs Charges/Coding Visit Charges Inpatient E&M: 40867 Subs Hosp L2
[2022-08-22] MEDS: buPROPion (SR) 150 MG Tablet.SA PO ×2 (08:16→21:39)
[2022-08-22] MEDS: Senna/Docusate Sodium 1 Tablet 2 TABLET PO ×2 (08:16→21:39)
[2022-08-22] MEDS: Midodrine HCl 5 MG Tablet 10 MG PO ×3 (08:16→17:15)
[2022-08-22] MEDS: Potassium Chloride Oral Tablet 20 MEQ PO (08:16)
[2022-08-22] MEDS: Hydrocortisone Sod Succinate 100 MG/2 ML Vial IV ×3 (08:16→21:38)
[2022-08-22] MEDS: Paroxetine 20 MG Tablet PO (08:17)
[2022-08-22] MEDS: Ceftriaxone 1 GM/50 ML BAG IV (12:32)
--- NOTE | 2022-08-22 16:52 | CASEMGMT ---
SW went to ICU. Patient was resting. SW called patient's sister, Dian. Dian said that yesterday patient had acknowledged that she has declined since February. Dian said that today she went into see patient and patient was talking about going home at discharge. Dian reminded her that they talked about SNF yesterday and patient said that she thought it would be good for her to go to SNF. Dian said that patient had stated my body is dying and when Dian inquired about it patient why she is saying that patient said because I feel it. Dian said that patient's first choice is [facility] for placement. Myrna SOMERS
[2022-08-22] MEDS: DOXEPIN HCL 50 MG CAPSULE 100 MG PO (21:39)
[2022-08-22] MEDS: Acetaminophen 325 MG Tablet 650 MG PO (21:40)
[2022-08-23] VITALS (24 sets, daily range): BP systolic 93–128; BP diastolic 53–99; PULSE 72–118; RESP 15–30; TEMP 35.9–37; O2SAT 90–99
[2022-08-23 04:19] LABS: Absolute Lymphocyte Count 1.26 X10^3/uL (0.83-4.51); Absolute Neutrophil Count 8.2 X10^3/uL (2.0-7.7); Basophil# 0.01 X10^3/uL; Basophil% 0.1 % (0-1); Hematocrit 23.1 % (37-47); Lymphocyte # 1.26 X10^3/ul (0.83-4.51); Lymphocyte % 12.2 % (19-41); Mean Corp Hgb Conc 30.3 g/dL (32-36); Mean Corpuscular Hgb 25.8 pg (27.0-32.0); Mean Corpuscular Volume 85.2 fL (81-99); Monocyte# 0.57 X10^3/uL; Monocyte% 5.5 % (0-10); NRBC Flagged by Analyzer 0 % (0-5); Neutrophil % 79.8 % (47-70); POSITIVE MORPHOLOGY YES; Platelet Count 347 K/mm3 (150-450); RBC Distribution Width CV 21.5 % (11.6-14.6); RBC Distribution Width SD 64.7 fl (35.1-43.9); Red Blood Count 2.71 M/mm3 (4.2-5.4); White Blood Count 10.3 K/mm3 (4.4-11.0)
[2022-08-23 04:21] LABS: Differential Indicated SCAN CRITERIA MET
[2022-08-23 04:52] LABS: Phosphorus 3.4 mg/dL (2.5-4.9)
[2022-08-23 04:55] LABS: ALB/GLOB Ratio 0.4 RATIO (0.9-2.4); AST(SGOT) 14 U/L (15-37); Alanine Aminotransfer ALT/SGPT 20 U/L (13-56); Albumin, Serum 1.5 g/dL (3.2-5.0); Alkaline Phosphatase 125 U/L (45-117); Anion Gap 5 (5-15); BUN 7 mg/dL (7-18); BUN/Creat Ratio 11.8 RATIO (10-20); Calcium,Total 8.1 mg/dL (8.5-10.1); Chloride 112 mmol/L (98-107); Creatinine, Serum 0.59 mg/dL (0.55-1.02); EST Glomerular Filtration Rate 109 mL/min (>60); Est Glom Filt Rate - Afr Amer 132 mL/min (>60); Estimated Creatinine Clearance 71.92 ml/min; Globulin 3.4 g/dL (2.2-4.2); Glucose 102 mg/dL (74-106); Magnesium 2.3 mg/dL (1.6-2.6); Potassium 3.8 mmol/L (3.5-5.1); Protein, Total 4.9 g/dL (6.4-8.2); Sodium Level 145 mmol/L (136-145)
[2022-08-23 05:15] LABS: Acanthocytes RARE; Anisocytosis 1+; Differential Comment SCANNED; Microcytosis 1+; Ovalocyte RARE
[2022-08-23] MEDS: 0.9% Saline Lock 10 ML Syringe IV ×2 (05:38→21:53)
[2022-08-23] MEDS: Hydrocortisone Sod Succinate 100 MG/2 ML Vial IV ×2 (05:38→21:50)
[2022-08-23] MEDS: Ipratropium/Albuterol Sulfate 3 ML AMPUL.NEB INHALATION ×3 (07:02→20:00)
--- NOTE | 2022-08-23 07:14 | PN.CC_ITS ---
Assessment & Plan Assessment/Plan (1) Acute upper gastrointestinal bleeding: PLAN: Plan RECOMMENDATIONS: 1. Continue to monitor H&H and transfuse if hemoglobin drops below 7 g/dL. 2. Continue current antimicrobials to complete a 12-day course 3. Continue midodrine therapy. 4. Wean stress dose steroids 5. Continue PPI therapy. Possible EGD, probably as an outpatient. [facility] is following to assist with medical management. 6. Encourage incentive spirometer 7. Continue modified diet by speech therapy 8. Okay to leave the intensive care unit IMPRESSIONS: 1. Acute hypoxemic respiratory failure The patient was ultimately intubated after she became unresponsive and experienced an emesis event with immediate concern for aspiration. Patient growing Serratia and staph from her sputum. Patient appears to be doing well from a respiratory standpoint. Chest x-ray showed some basilar atelectasis. Encourage incentive spirometer. This may be possible with improved mentation. Patient does have a wet cough, but no production. Encourage out of bed as tolerated 2. Acute blood loss anemia with hemorrhagic shock/relative adrenal insufficiency The patient presented with abdominal pain and hematemesis and required transfusion of blood products due to worsening anemia. Plan to continue to monitor serial H&H and transfuse if hemoglobin drops below 7 g/dL. Continue Protonix as ordered. Patient reinitiated on pressors overnight. Cortisol level was normal yesterday despite hypotension. Patient may have an element of relative adrenal insufficiency. Wean stress dose steroids given improved. 3. Hypernatremia/hypokalemia Resolved. Continue to monitor chemistry profile daily. 4. History of CVA/hypertension/anxiety/depression/questionable COPD/hypothyroidism/tobacco dependency Complicates care, management, recovery and prognosis. Continue bronchodilators as ordered. Subjective Subjective Patient much more appropriate today. Patient subjectively feels improved. Patient with a stronger cough today. Patient continues to have intermittent periods of hypoxia but overall is requiring less oxygen than previous. Objective Data Objective Data Vital Signs: Vital Signs Temp Pulse Resp BP Pulse Ox O2 Del Method O2 Flow Rate 36.8 C 97 19 H 107/64 91 High Flow 5 08/23/22 04:00 08/23/22 07:00 08/23/22 07:00 08/23/22 07:00 08/23/22 07:00 08/23/22 07:00 08/23/22 07:00 FiO2 35 08/19/22 07:00 Oxygen Flow Rate (L/min) 5 Oxygen Delivery Method High Flow Weight: 50.7 kg Body Mass Index (BMI) 20.2 Intake & Output: Intake and Output for Last 24 Hours 08/21/22 08/22/22 08/23/22 23:59 23:59 23:59 Intake Total 2308.49 / 2308.49 1013.00 / 1283.50 480.5 / 480.5 Output Total 2325 / 2325 1125 / 1125 Balance -16.51 / -16.51 -112.00 / 158.50 480.5 / 480.5 Lab / Micro Data Attestation: I reviewed the patient's lab results. Result Diagrams: 08/23/22 04:05 08/23/22 04:05 Labs: Laboratory Results - last 24 hr 08/23/22 04:05: WBC 10.3, RBC 2.71 L, Hgb 7.0 L, Hct 23.1 L, MCV 85.2, MCH 25.8 L, MCHC 30.3 L, RDW Std Deviation 64.7 H, RDW Coeff of Jeanine 21.5 H, Plt Count 347 , MPV 10.0, Immature Gran % (Auto) 2.400 H, Neut % (Auto) 79.8 H, Lymph % (Auto) 12.2 L, [place] % (Auto) 5.5, Eos % (Auto) 0.0, Baso % (Auto) 0.1, Absolute Neuts (auto) 8.2 H, Absolute Lymphs (auto) 1.26, Nucleated RBC % 0, Differential Comment SCANNED, Anisocytosis 1+, Microcytosis 1+, Ovalocytes RARE, Acanthocytes (Spur) RARE 08/23/22 04:05: Sodium 145, Potassium 3.8, Chloride 112 H, Carbon Dioxide 28.0, Anion Gap 5, BUN 7, Creatinine 0.59, Estim Creat Clear Calc 71.92, Est GFR (MDRD) Af Amer 132, Est GFR (MDRD) Non-Af 109, BUN/Creatinine Ratio 11.8, Gluco se 102, Calcium 8.1 L, Magnesium 2.3, Total Bilirubin 0.20, AST 14 L, ALT 20, Alkaline Phosphatase 125 H, Total Protein 4.9 L, Albumin 1.5 L, Globulin 3.4, Albumin/Globulin Ratio 0.4 L 08/23/22 04:05: Phosphorus 3.4 Micro: Microbiology 08/16/22 04:54 Blood Culture (Wb) - Anticubital Left Blood Culture - Final No growth in 5 days. 08/16/22 04:37 Blood Culture (Wb) - Anticubital Right Blood Culture - Final No growth in 5 days. 08/16/22 04:30 Sputum, Induced/Lukens Gram Stain - Final 08/16/22 04:30 Sputum, Induced/Lukens Respiratory Culture - Final Serratia marcescens Staphylococcus aureus Streptococcus agalactiae (B) 08/16/22 03:40 Urine Catheter - [place] Urine Culture - Final Culture exhibits no growth. Rhythm Strip Rhythm Strip: Sinus Tach Rate: 102 Ectopy: None Physical Exam Const alert and no apparent distress General Appearance: frail; Negative for ill appearing HEENT normocephalic and head/scalp atraumatic Eyes PERRL, EOMs intact bilaterally, conjunctivae normal and no scleral icterus Neck supple Neck Narrative: Right IJ is clean, dry and intact General: trachea midline and CVC in place Chest inspection of chest normal Resp Resp Narrative: Poor effort Auscultation: diminished lung sounds; Negative for rales, rhonchi or wheezes Cardio regular rate, regular rhythm, S1 normal heart sound, S2 normal heart sound, no murmurs, no rub and no gallops GI normal to inspection, nondistended, normoactive bowel sounds Extremity no clubbing, cyanosis or edema Skin no rashes or lesions noted Psych Mood & Affect: anxious Charges/Coding Visit Charges Inpatient E&M: 19414 Subs Hosp L2
[2022-08-23] MEDS: Midodrine HCl 5 MG Tablet 10 MG PO ×3 (07:39→17:26)
[2022-08-23] MEDS: Paroxetine 20 MG Tablet PO (08:39)
[2022-08-23] MEDS: Potassium Chloride Oral Tablet 20 MEQ PO (08:39)
[2022-08-23] MEDS: Senna/Docusate Sodium 1 Tablet 2 TABLET PO ×2 (08:39→21:51)
[2022-08-23] MEDS: buPROPion (SR) 150 MG Tablet.SA PO ×2 (08:39→21:51)
[2022-08-23] MEDS: Ceftriaxone 1 GM/50 ML BAG IV (08:52)
[2022-08-23] MEDS: CHLORHEXIDINE GLUC 2% CLOTH 1 EACH TOWELETTE TOPICAL (08:52)
--- NOTE | 2022-08-23 08:53 | PN.HOSP_ITS ---
Subjective Subjective Follow-up on acute metabolic encephalopathy/acute GI bleed/blood loss anemia: Patient was seen and examined.? Patient is on 4 L of oxygen. She remains awake and alert and answers question. She has residual slurred speech probably from her old stroke. Objective Data Objective Data Vital Signs: Vital Signs Temp Pulse Resp BP Pulse Ox O2 Del Method O2 Flow Rate 98.6 F 98 20 H 108/61 93 Nasal Cannula 5 08/23/22 08:00 08/23/22 08:00 08/23/22 08:00 08/23/22 08:00 08/23/22 08:00 08/23/22 08:00 08/23/22 08:00 FiO2 35 08/19/22 07:00 Oxygen Flow Rate (L/min) 5 Oxygen Delivery Method Nasal Cannula Weight: 50.7 kg Body Mass Index (BMI) 20.2 Intake & Output: Intake and Output for Last 24 Hours 08/21/22 08/22/22 08/23/22 23:59 23:59 23:59 Intake Total 2308.49 / 2308.49 1013.00 / 1283.50 480.5 / 480.5 Output Total 2325 / 2325 1125 / 1125 Balance -16.51 / -16.51 -112.00 / 158.50 480.5 / 480.5 Lab / Micro Data Result Diagrams: 08/23/22 04:05 08/23/22 04:05 Labs: Laboratory Results - last 24 hr 08/23/22 04:05: WBC 10.3, RBC 2.71 L, Hgb 7.0 L, Hct 23.1 L, MCV 85.2, MCH 25.8 L, MCHC 30.3 L, RDW Std Deviation 64.7 H, RDW Coeff of Jeanine 21.5 H, Plt Count 347, MPV 10.0, Immature Gran % (Auto) 2.400 H, Neut % (Auto) 79.8 H, Lymph % (Auto) 12.2 L, [place] % (Auto) 5.5, Eos % (Auto) 0.0, Baso % (Auto) 0.1, Absolute Neuts (auto) 8.2 H, Absolute Lymphs (auto) 1.26, Nucleated RBC % 0, Differential Comment SCANNED, Anisocytosis 1+, Microcytosis 1+, Ovalocytes RARE, Acanthocytes (Spur) RARE 08/23/22 04:05: Sodium 145, Potassium 3.8, Chloride 112 H, Carbon Dioxide 28.0, Anion Gap 5, BUN 7, Creatinine 0.59, Estim Creat Clear Calc 71.92, Est GFR (MDRD) Af Amer 132, Est GFR (MDRD) Non-Af 109, BUN/Creatinine Ratio 11.8, Glucose 102, Calcium 8.1 L, Magnesium 2.3, Total Bilirubin 0.20, AST 14 L, ALT 20, Alkaline Phosphatase 125 H, Total Protein 4.9 L, Albumin 1.5 L, Globulin 3.4, Albumin/Globulin Ratio 0.4 L 08/23/22 04:05: Phosphorus 3.4 Micro: Microbiology 08/16/22 04:54 Blood Culture (Wb) - Anticubital Left Blood Culture - Final No growth in 5 days. 08/16/22 04:37 Blood Culture (Wb) - Anticubital Right Blood Culture - Final No growth in 5 days. 08/16/22 04:30 Sputum, Induced/Lukens Gram Stain - Final 08/16/22 04:30 Sputum, Induced/Lukens Respiratory Culture - Final Serratia marcescens Staphylococcus aureus Streptococcus agalactiae (B) 08/16/22 03:40 Urine Catheter - [place] Urine Culture - Final Culture exhibits no growth. Rhythm Strip Rhythm Strip: Sinus Tach Rate: 102 Ectopy: None Physical Exam Narrative Physical exam: General: Alert, oriented x3, not pale, or jaundiced, appears very frail, on 4 L of oxygen HEENT: Atraumatic Oral: Moist Mucosa Neck: Supple Lungs: Diminished to auscultation Cardiovascular: HS I+II, regular, no murmurs Abdomen: Bowel Sounds Present, Soft, Non Tender Extremities: No edema Skin: No rashes, No breakdown Neurological: Grossly intact Psych/Mental Status: Appropriate Assessment & Plan Assessment/Plan (1) Acute GI bleeding: PLAN: Plan 62-year-old female with past medical history of CVA with chronic left-sided weakness, comes in with epigastric pain, hematemesis and was subsequently intubated on 08/16/2022 on account of airway protection for altered mental status. 1.Acute hypoxic respiratory failure, improved, remains on 4 L oxygen S/p intubation on admission for primary airway protection Extubated on 08/19/22 morning. Chest x-ray on 08/21/22 showed bilateral pleural effusion, bibasilar atelectasis Continue to wean off for SPO2 more than 92%. Patient encouraged to use incentive spirometer 2. Acute Serratia marcescens/staph/beta strep agalactaie Blood cultures show no growth x5 days Patient remains febrile. WBC count is 10.3 Continue on IV ceftriaxone (day 8 of antibiotics); aiming for 12 days total antibiotics 3. Acute GI bleed secondary to upper GI bleed from probable Leena-Shen tear CT of the abdomen pelvis on 08/15/2022 showed fluid-filled distal esophagus and hiatal hernia GI consulted. EGD planned later in the outpatient Continue on IV PPI twice daily 4. Acute blood loss anemia secondary to #2, Status post 2 units of packed RBCs Hb today is 7.0, will transfuse 1 unit pRBC Will trend in am 5. Shock, probably from relative adrenal insufficiency Random cortisol was 13.90. BP improved on scheduled IV hydrocortisone Doubt hypovolemic vs septic shock. Not cardiac related 2D echo shows EF of 65%, trivial pericardial effusion 6. Acute metabolic encephalopathy, appears resolved 7. Hypomagnesemia, resolved 8. Hypertension, BP relatively improved Continue to hold home meds on account of shock 9. Anxiety/depression, home meds on hold 10. COPD/asthma, not in acute exacerbation, on as needed breathing treatments 11. History of CVA with chronic left upper extremity weakness/hyperlipidemia Aspirin on hold on account of GI bleed Continue on statin 12. DVT prophylaxis?on SCDs Charges/Coding Visit Charges Inpatient E&M: 31904 Subs Hosp L2
[2022-08-23] MEDS: Atorvastatin Calcium 40 MG Tablet PO (21:50)
[2022-08-23] MEDS: DOXEPIN HCL 50 MG CAPSULE 100 MG PO (21:52)
[2022-08-24] VITALS (17 sets, daily range): BP systolic 98–152; BP diastolic 60–114; PULSE 98–112; RESP 18–24; TEMP 36.1–37; O2SAT 90–98
[2022-08-24 05:32] LABS: Absolute Neutrophil Count 9.9 X10^3/uL (2.0-7.7); Basophil# 0.03 X10^3/uL; Basophil% 0.2 % (0-1); Hematocrit 23.5 % (37-47); Hemoglobin 7.2 g/dL (12.0-15.0); Mean Corp Hgb Conc 30.6 g/dL (32-36); Mean Corpuscular Volume 84.8 fL (81-99); Mean Platelet Vol. 10.2 fl (6.2-12.0); Monocyte# 0.93 X10^3/uL; Monocyte% 7.3 % (0-10); NRBC Flagged by Analyzer 0.2 % (0-5); Neutrophil # 9.86 X10^3/uL (2.7-7.7); Neutrophil % 77.6 % (47-70); POSITIVE MORPHOLOGY YES; Platelet Count 325 K/mm3 (150-450); RBC Distribution Width CV 21.8 % (11.6-14.6); RBC Distribution Width SD 64.2 fl (35.1-43.9); Red Blood Count 2.77 M/mm3 (4.2-5.4); White Blood Count 12.7 K/mm3 (4.4-11.0)
[2022-08-24 05:42] LABS: Differential Indicated SCAN CRITERIA MET
[2022-08-24 06:21] LABS: Differential Comment SCANNED; Ovalocyte RARE; Polychromasia RARE
[2022-08-24 06:22] LABS: Anisocytosis 2+; Macrocytosis 1+; Microcytosis 1+
[2022-08-24 06:38] LABS: ALB/GLOB Ratio 0.5 RATIO (0.9-2.4); AST(SGOT) 18 U/L (15-37); Alanine Aminotransfer ALT/SGPT 23 U/L (13-56); Albumin, Serum 1.6 g/dL (3.2-5.0); Alkaline Phosphatase 125 U/L (45-117); Anion Gap 6 (5-15); BUN 11 mg/dL (7-18); BUN/Creat Ratio 15.8 RATIO (10-20); Calcium,Total 8.2 mg/dL (8.5-10.1); Chloride 115 mmol/L (98-107); EST Glomerular Filtration Rate 91 mL/min (>60); Est Glom Filt Rate - Afr Amer 110 mL/min (>60); Estimated Creatinine Clearance 60.62 ml/min; Globulin 3.4 g/dL (2.2-4.2); Glucose 87 mg/dL (74-106); Potassium 3.8 mmol/L (3.5-5.1); Sodium Level 146 mmol/L (136-145)
[2022-08-24] MEDS: Ipratropium/Albuterol Sulfate 3 ML AMPUL.NEB INHALATION ×3 (07:17→20:19)
--- NOTE | 2022-08-24 08:19 | PN.HOSP_ITS ---
Subjective Subjective Patient is a 62-year-old lady admitted with hematemesis.? Hemoglobin on admission was 7.7, started on Protonix drip admitted to the intensive care unit for subsequent management she was placed on the vent for acute metabolic encephalopathy subsequently weaned off. Subsequent EGD 08/15/2022 did show Leena-Shen tear. Objective Data Objective Data Vital Signs: Vital Signs Temp Pulse Resp BP Pulse Ox O2 Del Method O2 Flow Rate 97.0 F L 103 H 20 H 113/60 97 Nasal Cannula 7 08/24/22 05:00 08/24/22 07:00 08/24/22 05:00 08/24/22 05:00 08/24/22 05:00 08/24/22 07:58 08/24/22 07:58 FiO2 35 08/19/22 07:00 Oxygen Flow Rate (L/min) 7 Oxygen Delivery Method Nasal Cannula Weight: 50.7 kg Body Mass Index (BMI) 20.2 Intake & Output: Intake and Output for Last 24 Hours 08/22/22 08/23/22 08/24/22 23:59 23:59 23:59 Intake Total 1013.00 / 1283.50 1289.0 / 1289.0 200 / 200 Output Total 1125 / 1125 150 / 150 Balance -112.00 / 158.50 1289.0 / 1289.0 50 / 50 Medical Nutrition Assessment Dietitian: Malnutrition Criteria Met Start: 08/23/22 09:28 Freq: Status: Active Protocol: Document 08/23/22 09:28 (Rec: 08/23/22 09:28 [id number]) Nutrition Malnutrition Evidence of Malnutrition Exists Yes Malnutrition (severe): Acute Illness/Injury Evidenced By Suboptimal Energy Intake ( Severe),Physical Changes ( Moderate) Intake Problem Inadequate Oral Intake Etiology related to decreased appetite Signs/Symptoms as evidenced by estimated PO intake meeting <50% of estimated energy needs Status Active Problem Clinical Problem Acute Disease or Injury Related Malnutrition Etiology severe, acute malnutrition related to inadequate energy intake Signs/Symptoms as evidenced by estimated PO intake meeting <50% of estimated energy needs >5 days ; Moderate muscle wasting/fat loss evident per physical exam in orbital, temporal, clavicle, and acromion areas Status Active Problem Swallowing Difficulty Etiology r/t history of stroke, mental status Signs/Symptoms as evidenced by need for modified diet. Status Active Problem Recommendation Dietitian Recommendations/Changes Continue regular diet as tolerated with consistency/ texture as per speech therapy. Will provide ensure plus high protein w/ breakfast and ensure pudding BID w/ lunch and dinner for increased nutrition if consumed. If unable to safely tolerate nutrition via PO diet, may need to consider alternate nutrition support. Lab / Micro Data Result Diagrams: 08/24/22 04:55 08/24/22 04:55 Labs: Laboratory Results - last 24 hr 08/24/22 04:55: WBC 12.7 H, RBC 2.77 L, Hgb 7.2 L, Hct 23.5 L, MCV 84.8, MCH 26.0 L, MCHC 30.6 L, RDW Std Deviation 64.2 H, RDW Coeff of Jeanine 21.8 H, Plt Count 325, MPV 10.2, Immature Gran % (Auto) 3.900 H, Neut % (Auto) 77.6 H, Lymph % (Auto) 11.0 L, [place] % (Auto) 7.3, Eos % (Auto) 0.0, Baso % (Auto) 0.2, Absolute Neuts (auto) 9.9 H, Absolute Lymphs (auto) 1.40, Nucleated RBC % 0.2, Differential Comment SCANNED, Polychromasia RARE, Anisocytosis 2+, Microcytosis 1+, Macrocytosis 1+, Ovalocytes RARE 08/24/22 04:55: Sodium 146 H, Potassium 3.8, Chloride 115 H, Carbon Dioxide 25.0, Anion Gap 6, BUN 11, Creatinine 0.70, Estim Creat Clear Calc 60.62, Est GFR (MDRD) Af Amer 110, Est GFR (MDRD) Non-Af 91, BUN/Creatinine Ratio 15.8, Glucose 87, Calcium 8.2 L, Total Bilirubin 0.30, AST 18, ALT 23, Alkaline Phosphatase 125 H, Total Protein 5.0 L, Albumin 1.6 L, Globulin 3.4, Albumin /Globulin Ratio 0.5 L Micro: Microbiology 08/16/22 04:54 Blood Culture (Wb) - Anticubital Left Blood Culture - Final No growth in 5 days. 08/16/22 04:37 Blood Culture (Wb) - Anticubital Right Blood Culture - Final No growth in 5 days. 08/16/22 04:30 Sputum, Induced/Lukens Gram Stain - Final 08/16/22 04:30 Sputum, Induced/Lukens Respiratory Culture - Final Serratia marcescens Staphylococcus aureus Streptococcus agalactiae (B) 08/16/22 03:40 Urine Catheter - [place] Urine Culture - Final Culture exhibits no growth. Rhythm Strip Rhythm Strip: Sinus Tach Rate: 102 Ectopy: None Physical Exam Narrative GENERAL: cooperative HEENT: Atraumatic; normocephalic EYES; Anicteric, Normal Conjunctiva NECK; supple, normal thyroid, RESPIRATORY: Diminished to auscultation CARDIOVASCULAR: Regular S1 S2, GI: soft, normoactive bowel sounds, : No Renal angle tenderness; EXTREMITIES: No edema, no clubbing, MUSCULOSKELETAL: no muscle wasting NEURO: Awake; no lateralizing signs. SKIN: No Rash PSYCH; Flat affect Assessment & Plan Assessment/Plan (1) Acute GI bleeding: PLAN: Plan Patient is a 62-year-old lady admitted with hematemesis.? Hemoglobin on admiss ion was 7.7, started on Protonix drip admitted to the intensive care unit for subsequent management she was placed on the vent for acute metabolic encephalopathy subsequently weaned off. Subsequent EGD 08/15/2022 did show Leena-Shen tear. Patient was placed on Protonix drip 1.? Acute blood loss anemia ? Secondary to upper GI bleed.? Patient has been admitted to the intensive care unit transfused with 2 unit PRBC subsequent serial H&H ordered 2.? Upper GI bleed ? Patient presented with hematemesis started on Protonix drip currently being monitored in the intensive care unit.? Consultation was placed toGI for possible endoscopic evaluation ? 08/24/2022 patient underwent EGD which demonstrated Leena-Shen tear 3.? Hypovolemic shock ? Secondary to above patient was managed with IV fluid resuscitation as well as pressor support with norepinephrine 4.? Acute metabolic encephalopathy with impending respiratory failure secondary to pneumonia ? Patient had to be intubated to protect her airway consult placed to critical care for vent management ? 08/24/2022 sputum cultures did grow Serratia marcescens/staph/beta strep pneumonia 5.? Hypokalemia ? Secondary to GI losses from patient nausea vomiting corrected per protocol repeat potassium levels ordered 6.? Essential hypertension ? Patient's hypertensives on hold in view of her hypovolemic shock ? Patient cortisol was noted to be 13.9 placed on hydrocortisone plan is to start weaning down 7.? Dyslipidemia -Patient is on statin therapy, 8.? Depression with anxiety ? On Paxil as well as olanzapine 9.? Overlap syndrome?COPD and asthma ? Currently not in exacerbation aerosol treatments as needed 10.? 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 DVT prophylaxis -bilateral SCDs Charges/Coding Visit Charges Inpatient E&M: 10260 Subs Hosp L2
--- NOTE | 2022-08-24 09:02 | CASEMGMT ---
Discharge [employer] This policy writer sent referral to [facility]. Fran TRIANA Financial Counselor
--- NOTE | 2022-08-24 10:02 | PN.CC_ITS ---
Assessment & Plan Assessment/Plan (1) Acute GI bleeding: PLAN: Plan RECOMMENDATIONS: 1. Wean supplemental oxygen as tolerated. 2. Continue antimicrobials. 3. Continue PPI therapy. 4. Continue to wean steroids dose steroids as tolerated. 5. Encourage incentive spirometer use and mobilize patient as tolerated. IMPRESSIONS: 1.??Acute hypoxemic respiratory failure The patient was ultimately intubated after she became unresponsive and experienced an emesis event with immediate concern for aspiration. The patient is growing Serratia and staph from her sputum.?Chest x-ray showed some basilar atelectasis.? Encourage incentive spirometer.? Continue to wean supplemental oxygen as tolerated to maintain saturations at or above 90%. 2.??Acute blood loss anemia with hemorrhagic shock/relative adrenal insufficiency The patient presented with abdominal pain and hematemesis and required transfusion of blood products due to worsening anemia.? Plan to continue to monitor serial H&H and transfuse if hemoglobin drops below 7 g/dL.? Continue Protonix as ordered.? Continue to wean stress dose steroids as tolerated. 3.??History of CVA/hypertension/anxiety/depression/questionable COPD/hypoth yroidism/tobacco dependency Complicates care, management, recovery and prognosis.? Continue bronchodilators as ordered. This note was generated with [facility] dictation software. It may contain incorrect words, spelling, and punctuation that were not noted in checking the note before signing. Subjective Subjective The patient was seen and examined at the bedside this morning. Events from the last 24 hours have been reviewed. The patient is currently afebrile, hemodynamically stable and maintaining appropriate oxygen saturations on 3 L/min via nasal cannula. The patient remains on scheduled bronchodilators and stress dose steroids. Objective Data Objective Data The patient's most recent lab work, culture data and imaging studies have all been personally reviewed. Surface echocardiogram demonstrated normal LV size and function with an ejection fraction of 65%. Sputum culture was positive for Serratia and staph aureus. Vital Signs: Vital Signs Temp Pulse Resp BP Pulse Ox O2 Del Method O2 Flow Rate 97.0 F L 100 20 H 113/60 94 Nasal Cannula 7 08/24/22 05:00 08/24/22 07:17 08/24/22 07:17 08/24/22 05:00 08/24/22 07:17 08/24/22 07:58 08/24/22 07:58 FiO2 35 08/19/22 07:00 Oxygen Flow Rate (L/min) 7 Oxygen Delivery Method Nasal Cannula Weight: 111 lb 12.39 oz Body Mass Index (BMI) 20.2 Intake & Output: Intake and Output for Last 24 Hours 08/22/22 08/23/22 08/24/22 23:59 23:59 23:59 Intake Total 1013.00 / 1283.50 1289.0 / 1289.0 200 / 200 Output Total 1125 / 1125 150 / 150 Balance -112.00 / 158.50 1289.0 / 1289.0 50 / 50 Medical Nutrition Assessment Dietitian: Malnutrition Criteria Met Start: 08/23/22 09:28 Freq: Status: Active Protocol: Document 08/23/22 09:28 (Rec: 08/23/22 09:28 [id number]) Nutrition Malnutrition Evidence of Malnutrition Exists Yes Malnutrition (severe): Acute Illness/Injury Evidenced By Suboptimal Energy Intake ( Severe),Physical Changes ( Moderate) Intake Problem Inadequate Oral Intake Etiology related to decreased appetite Signs/Symptoms as evidenced by estimated PO intake meeting <50% of estimated energy needs Status Active Problem Clinical Problem Acute Disease or Injury Related Malnutrition Etiology severe, acute malnutrition related to inadequate energy intake Signs/Symptoms as evidenced by estimated PO intake meeting <50% of estimated energy needs >5 days ; Moderate muscle wasting/fat loss evident per physical exam in orbital, temporal, clavicle, and acromion areas Status Active Problem Swallowing Difficulty Etiology r/t history of stroke, mental status Signs/Symptoms as evidenced by need for modified diet. Status Active Problem Recommendation Dietitian Recommendations/Changes Continue regular diet as tolerated with consistency/ texture as per speech therapy. Will provide ensure plus high protein w/ breakfast and ensure pudding BID w/ lunch and dinner for increased nutrition if consumed. If unable to safely tolerate nutrition via PO diet, may need to consider alternate nutrition support. Lab / Micro Data Attestation: I reviewed the patient's lab results. Result Diagrams: 08/25/22 04:56 08/25/22 04:56 Labs: Laboratory Results - last 24 hr 08/24/22 04:55: WBC 12.7 H, RBC 2.77 L, Hgb 7.2 L, Hct 23.5 L, MCV 84.8, MCH 26.0 L, MCHC 30.6 L, RDW Std Deviation 64.2 H, RDW Coeff of Jeanine 21.8 H, Plt Count 325, MPV 10.2, Immature Gran % (Auto) 3.900 H, Neut % (Auto) 77.6 H, Lymph % (Auto) 11.0 L, [place] % (Auto) 7.3, Eos % (Auto) 0.0, Baso % (Auto) 0.2, Absolute Neuts (auto) 9.9 H, Absolute Lymphs (auto) 1.40, Nucleated RBC % 0.2, Differential Comment SCANNED, Polychromasia RARE, Anisocytosis 2+, Microcytosis 1+, Macrocytosis 1+, Ovalocytes RARE 08/24/22 04:55: Sodium 146 H, Potassium 3.8, Chloride 115 H, Carbon Dioxide 25.0, Anion Gap 6, BUN 11, Creatinine 0.70, Estim Creat Clear Calc 60.62, Est GFR (MDRD) Af Amer 110, Est GFR (MDRD) Non-Af 91, BUN/Creatinine Ratio 15.8, Glucose 87, Calcium 8.2 L, Total Bilirubin 0.30, AST 18, ALT 23, Alkaline Phosphatase 125 H, Total Protein 5.0 L, Albumin 1.6 L, Globulin 3.4, Albumin/Globulin Ratio 0.5 L Micro: Microbiology 08/16/22 04:54 Blood Culture (Wb) - Anticubital Left Blood Culture - Final No growth in 5 days. 08/16/22 04:37 Blood Culture (Wb) - Anticubital Right Blood Culture - Final No growth in 5 days. 08/16/22 04:30 Sputum, Induced/Lukens Gram Stain - Final 08/16/22 04:30 Sputum, Induced/Lukens Respiratory Culture - Final Serratia marcescens Staphylococcus aureus Streptococcus agalactiae (B) 08/16/22 03:40 Urine Catheter - [place] Urine Culture - Final Culture exhibits no growth. ABG Data ABG results: ABG 08/16/22 06:52 Specimen Type ART Sample Site R Radial pH 7.41 Bicarbonate Actual 22.1 Total CO2 23 Base Excess -3 L O2 Saturation 95 O2 % 40 ABG pCO2 34.6 L ABG pO2 75 Luis Test Positive Respiration Rate 14 O2 Delivery Device Adult Vent Vent Mode AC Tidal Volume 380 POC PEEP 5 Radiography Diagnostic Testing: Radiology Impression KUB X-Ray 08/16/22 04:13 IMPRESSION: 1. Excellent placement of OG tube, tip is in the gastric antrum. 2. No acute abnormality in the abdomen and no other additional findings or changes when compared to 07/30/2022. Electronically Signed: Ryan Garcia MD at 8:36 EDT , Chest X-Ray 08/16/22 04:41 IMPRESSION: Satisfactory ET tube position. Decreased basilar atelectasis. Electronically Signed: Heydi Witt MD at 7:33 EDT , Chest X-Ray 08/16/22 06:32 IMPRESSION: 1. Satisfactory placement of right IJ approach central line catheter, tip is in the distal SVC. 2. No acute cardiopulmonary pathology. 3. Distal repositioning of ET tube, tip is close to the jorje and facing the right mainstem bronchus. 4. OG tube tip and sidehole remain inside the gastric cavity. Electronically Signed: Ryan Garcia MD at 8:35 EDT , Rhythm Strip Rhythm Strip: Sinus Tach Rate: 102 Ectopy: None Physical Exam Const alert and no apparent distress Constitutional Narrative: Sitting in bedside recliner. General Appearance: frail HEENT normocephalic and head/scalp atraumatic Eyes PERRL, EOMs intact bilaterally and conjunctivae normal Neck supple General: trachea midline Chest inspection of chest normal Resp normal respiratory effort Auscultation: diminished lung sounds; Negative for rales, rhonchi or wheezes Cardio regular rate and regular rhythm GI normal to inspection, nondistended, normoactive bowel sounds Extremity no clubbing, cyanosis or edema Skin no rashes or lesions noted Neuro no focal motor deficits Psych cooperative and affect normal Charges/Coding Visit Charges Inpatient E&M: 12552 Subs Hosp L2
[2022-08-24] MEDS: Midodrine HCl 5 MG Tablet 10 MG PO ×3 (10:15→16:57)
[2022-08-24] MEDS: Paroxetine 20 MG Tablet PO (10:16)
[2022-08-24] MEDS: Potassium Chloride Oral Tablet 20 MEQ PO (10:16)
[2022-08-24] MEDS: Hydrocortisone Sod Succinate 100 MG/2 ML Vial IV (10:18)
[2022-08-24] MEDS: Senna/Docusate Sodium 1 Tablet 2 TABLET PO ×2 (10:18→22:29)
[2022-08-24] MEDS: buPROPion 75 MG Tablet 150 MG PO ×2 (10:19→22:28)
--- NOTE | 2022-08-24 10:35 | SP.MBSS_ITS ---
Modified Barium Swallow - Patient Information Study Date: 08/24/22 Study Time: 09:30 Direct Billable Minutes: 95 Total Minutes procedure & reportin Diagnosis: Acute GI bleeding (K92.2); Dysphagia (R13.10) Referring Physician: Itzel Baker Reason for Referral: Objectively assess swallow function, risk for aspiration, and determine recommendations for least restrictive diet textures and compensatory strategies to improve safety of swallow. Medical History: The patient is a 62 y/o F w/ PMHx: GERD w/ Hx PUD, Hx CVA with chronic LUE weakn ess/contracture, Anxiety and Depression, COPD/Asthma, Tobacco, Hypothyroidism, HTN, HLD, Chronic anemia/Fe deficiency anemia who presents to the [facility] ED on 08/15/2022 with history of onset mild aching dull throbbing epigastric pain, worse with emesis bouts and oral intake attempts with ongoing nausea and emesis x 3 days. In the ED she had similar emesis and the blood with dark and old appearing. She was admitted for management of acute upper GI bleeding. 08/16/2022 the patient was intubated after she became unresponsive and experienced an emesis event with immediate concern for aspiration. She was extubated ~7:15AM on 08/19/2022 and recommended for speech therapy consult to assess aspiration risk prior to diet advancement. ST initially recommended NPO. During POC she was upgraded to Puree textures / Thin liquids, then downgraded to Puree textures / [place] thick liquids with recommendation for MBSS 08/24/2022 to objectively assess aspiration risk and provide recommendations for LRD textures. Current Diet Ordered: Puree textures / [place] thick liquids Dentition: Edentulous - Upper dentures, not present for the study Respiratory Status: Oxygenating on 4L/M nasal cannula - 8L O2/min via nasal cannula - Penetration-Aspiration Scale Penetration-Aspiration Scale: OBJECTIVE ASSESSMENT OF SWALLOW FUNCTION (QUANTITATIVE ? PER TRIAL): PENETRATION / ASPIRATION SCALE (KEENE): 1 = does not enter airway 2 = enters airway/above vocal folds/ejected 3 = enters airway/above vocal folds/not ejected 4 = enters airway/contacts vocal folds/ejected 5 = enters airway/contacts vocal folds/not ejected 6 = enters airway/below vocal folds/ejected 7 = enters airway/below vocal folds/not ejected despite effort 8 = enters airway/below vocal folds/no effort VIDEOFLOROSCOPIC SCALE SCORE (KEENE): Grade I = aspiration of material that has penetrated into the laryngeal vestibule, intact cough reflex Grade II = aspiration < 10 % of the bolus, intact cough reflex Grade III = aspiration of < 10 % of the bolus, reduced cough reflex or aspiration of > 10 % of the bolus, intact cough reflex Grade IV = aspiration of > 10 % of the bolus, reduced cough reflex - Penetration-Aspiration Scale Score Thin Liquid via teaspoon Result: 2= enter airway/above vocal folds/ejected Thin Liquid via teaspoon Trial 2 Result: 3= enters airways/above vocal folds/not ejected Thin Liquid via small single sip from cup Result: 1= does not enter airway Thin Liquid via small single sip from cup Trial 2 Result: 3= enters airways/above vocal folds/not ejected [place] Thick Liquid via small single sip from cup Result: 1= does not enter airway [place] Thick Liquid via small single sip from cup Trial 2 Result: 2= enter airway/above vocal folds/ejected Honey Thick Liquid via teaspoon Result: 2= enter airway/above vocal folds/ejected Pudding via teaspoon Result: 1= does not enter airway - DAYTIME CAREGIVER cued cough and re-swallow after this trial to attempt clearing trace residues in laryngeal vestibule from previous trials - pt unable to fully clear laryngeal vestibule of contrast. [place] Thick Liquid via small single sip from cup Trial 3 Result: 3= enters airways/above vocal folds/not ejected Thin Liquid via small single sip from cup Effortful swallow Result: 7= enters airways/below vocal folds/not ejected despite effort - albin yed, weak, and ineffective cough reflex - Oral Phase Labial Seal: No Labial Escape Tongue Control During Bolus Hold: Posterior escape of less than half of bolus Bolus Transport/Lingual Motion: Delayed initiation of tongue motion Oral Residue: Residue collection on oral structures - pudding - Pharyngeal Phase Initiation of Pharyngeal Swallow: Bolus head in pyriforms - Thin liquids to the laryngeal vestibule prior to swallow onset Soft Palate Elevation: No bolus between soft palate and pharyngeal wall Laryngeal Elevation: Partial superior movement thyroid cart/partial apprx aryt- epig petiole Anterior Hyoid Excursion: Partial anterior movement Epiglottic Movement: Complete inversion Laryngeal Vestibule Closure at Height of Swallow: Incomplete; narrow column of air/contrast in laryngeal vestibule Pharyngeal Stripping Wave: Present - complete Pharyngoesophageal Segment Opening: Complete distension and complete duration; no obstruction of flow Tongue Base Retraction: Narrow column of contrast between tongue base & post. pharyngeal wall Pharyngeal Residue: Trace residue within or on pharyngeal structures - Diagnosis/Impression Diagnosis: Mild-moderate oropharyngeal phase dysphagia (R13.12) Impression: The oral phase is primarily marked by... -Decreased bolus control with <1/2 of the bolus spilling posteriorly to the laryngeal vestibule prior to swallow onset observed with thin liquids by cup. -Delayed tongue motion for A-P transport. -Mild oral residue after the swallow with pudding thick liquids, which cleared with independent initiation of a second swallow. -Did not complete cookie trial due to moderate mastication deficits observed at bedside with dentures in place, and no dentures in place for the study. The pharyngeal phase is primarily marked by... -Decreased airway closure during the swallow due to decreased anterior hyoid excursion and decreased laryngeal elevation. -Mildly decreased tongue base retraction contributed to min pudding contrast in the vallecula after the swallow. Pharyngeal residue was trace throughout the study. . -Aspiration of thin liquids by cup, which the DAYTIME CAREGIVER mostly contributes to premature loss of sip to the laryngeal vestibule prior to onset. Consistent laryngeal penetration across thin, nectar thick, and honey thick liquid consistencies. SEE PAS scores above for full details. Decreased bolus size appeared to result in decreased laryngeal penetration during the study. Small CP-bar appeared at the level of C-5, but it did not appear to impact bolus clearance through UES. - Recommendations Diet: Puree Textures, [place]-thick Liquids Compensatory Strategies: Small Bites, Small Sips - Cue cough and re-swallow if wet vocal quality, Slow Rate, Sitting upright, Remain sitting upright for 30 minutes after PO intake Supervision: 1:1 Close Supervision Recommend Repeat Modified Barium Swallow: TBD Need for Skilled Speech Therapy Services: Yes Comment: Will recommend the patient for skilled dysphagia therapy to address deficits in oropharyngeal swallow function. Will recommend the patient for oropharyngeal strengthening to improve lingual strength, laryngeal elevation, and anterior hyoid excursion (lingual resistance exercises, CTAR, effortful breath hold and swallow, Shauna). The patient would benefit from thorough education regarding diet recommendations and recommended compensatory strategies. At next level of care, would consider the patient for implementation of [place] Free Water Protocol (FFWP) if deemed clinically appropriate by her treating DAYTIME CAREGIVER to encourage hydration and promote increased opportunities for swallowing throughout the day. Education Completed: 1. Described result of evaluation., 7. Pt requires further education on strategies & risks. - Status Active ST Patient: Active - Contact Information [facility] Speech Therapy:: Deepa Thomas M.A. [facility]-DAYTIME CAREGIVER Speech-Language Pathologist [facility] [address] [place] [address] [email or web address] [phone] 08/24/22 10:45
[2022-08-24] MEDS: Ceftriaxone 1 GM/50 ML BAG IV (10:57)
[2022-08-24 11:15] LABS: Pathologist Review Reviewed
--- NOTE | 2022-08-24 11:38 | CASEMGMT ---
Discharge Upset Operator DEBBIE reached out. Patient has been accepted. MOOSE Waite notified. Fran TRIANA [employer] Grinder
--- NOTE | 2022-08-24 16:21 | PN_ITS ---
Subjective Subjective Patient denies any complaints. She is maintaining 94% on 7 L of oxygen. She denies any chest pain or shortness of breath. She does have some mild esophageal dysphagia. Objective Data Objective Data Vital Signs: Vital Signs Temp Pulse Resp BP Pulse Ox O2 Del Method O2 Flow Rate 96.9 F L 106 H 17 120/73 94 Nasal Cannula 6 08/25/22 13:52 08/25/22 13:52 08/25/22 13:52 08/25/22 13:52 08/25/22 14:45 08/25/22 14:45 08/25/22 14:45 FiO2 35 08/19/22 07:00 Oxygen Flow Rate (L/min) 6 Oxygen Delivery Method Nasal Cannula Weight: 106 lb 14.787 oz Body Mass Index (BMI) 20.9 Intake & Output: Intake and Output for Last 24 Hours 08/23/22 08/24/22 08/25/22 23:59 23:59 23:59 Intake Total 1289.0 / 1289.0 793.5 / 913.5 292.5 / 292.5 Output Total 425 / 425 Balance 1289.0 / 1289.0 368.5 / 488.5 292.5 / 292.5 Medical Nutrition Assessment Dietitian: Malnutrition Criteria Met Start: 08/23/22 09:28 Freq: Status: Active Protocol: Document 08/23/22 09:28 (Rec: 08/23/22 09:28 [id number]) Nutrition Malnutrition Evidence of Malnutrition Exists Yes Malnutrition (severe): Acute Illness/Injury Evidenced By Suboptimal Energy Intake ( Severe),Physical Changes ( Moderate) Intake Problem Inadequate Oral Intake Etiology related to decreased appetite Signs/Symptoms as evidenced by estimated PO intake meeting <50% of estimated energy needs Status Active Problem Clinical Problem Acute Disease or Injury Related Malnutrition Etiology severe, acute malnutrition related to inadequate energy intake Signs/Symptoms as evidenced by estimated PO intake meeting <50% of estimated energy needs >5 days ; Moderate muscle wasting/fat loss evident per physical exam in orbital, temporal, clavicle, and acromion areas Status Active Problem Swallowing Difficulty Etiology r/t history of stroke, mental status Signs/Symptoms as evidenced by need for modified diet. Status Active Problem Recommendation Dietitian Recommendations/Changes Continue regular diet as tolerated with consistency/ texture as per speech therapy. Will provide ensure plus high protein w/ breakfast and ensure pudding BID w/ lunch and dinner for increased nutrition if consumed. If unable to safely tolerate nutrition via PO diet, may need to consider alternate nutrition support. Lab / Micro Data Result Diagrams: 08/25/22 04:56 08/25/22 04:56 Labs: Laboratory Results - last 24 hr 08/25/22 04:56: WBC 13.0 H, RBC 2.80 L, Hgb 7.3 L, Hct 23.8 L, MCV 85.0, MCH 26.1 L, MCHC 30.7 L, RDW Std Deviation 66.4 H, RDW Coeff of Jeanine 21.9 H, Plt Count 379, MPV 9.8, Immature Gran % (Auto) 2.900 H, Neut % (Auto) 71.8 H, Lymph % (Auto) 15.4 L, [place] % (Auto) 9.8, Eos % (Auto) 0.0, Baso % (Auto) 0.1, Absolute Neuts (auto) 9.3 H, Absolute Lymphs (auto) 1.99, Nucleated RBC % 0.3, Differential Comment SCANNED, Polychromasia 1+, Anisocytosis 2+, Microcytosis 1+, Macrocytosis 1+, Ovalocytes RARE 08/25/22 04:56: Sodium 147 H, Potassium 3.4 L, Chloride 115 H, Carbon Dioxide 25.0, Anion Gap 7, BUN 14, Creatinine 0.65, Estim Creat Clear Calc 65.28, Est GFR (MDRD) Af Amer 119, Est GFR (MDRD) Non-Af 98, BUN/Creatinine Ratio 21.5 H, Glucose 82, Calcium 7.9 L, Magnesium 2.2 Micro: Microbiology 08/16/22 04:54 Blood Culture (Wb) - Anticubital Left Blood Culture - Final No growth in 5 days. 08/16/22 04:37 Blood Culture (Wb) - Anticubital Right Blood Culture - Final No growth in 5 days. 08/16/22 04:30 Sputum, Induced/Lukens Gram Stain - Final 08/16/22 04:30 Sputum, Induced/Lukens Respiratory Culture - Final Serratia marcescens Staphylococcus aureus Streptococcus agalactiae (B) 08/16/22 03:40 Urine Catheter - [place] Urine Culture - Final Culture exhibits no growth. Rhythm Strip Rhythm Strip: Sinus Tach Rate: 102 Ectopy: None Physical Exam Const alert and no apparent distress General Appearance: frail HEENT normocephalic and head/scalp atraumatic Eyes PERRL, EOMs intact bilaterally and conjunctivae normal Neck supple General: trachea midline Chest inspection of chest normal Resp normal respiratory effort Auscultation: diminished lung sounds; Negative for rales, rhonchi or wheezes Cardio regular rate and regular rhythm GI normal to inspection, nondistended, normoactive bowel sounds Extremity no clubbing, cyanosis or edema Skin no rashes or lesions noted Neuro no focal motor deficits Psych cooperative and affect normal Assessment & Plan Assessment/Plan (1) Acute GI bleeding: PLAN: She will undergo an upper endoscopy for acute GI bleed. Different diagnosis does include a Leena-Shen tear, peptic ulcer disease, erosive esophagitis, angiodysplasia. She was explained alternatives, risk, benefits include not withstanding bleeding, infection, sepsis, perforation, need for emergency or . Have an ASA of 3.
[2022-08-24] MEDS: Acetaminophen 325 MG Tablet 650 MG PO (20:33)
[2022-08-24] MEDS: Hydrocortisone Sod Succinate 100 MG/2 ML Vial 50 MG IV (22:28)
[2022-08-24] MEDS: Atorvastatin Calcium 40 MG Tablet PO (22:29)
[2022-08-24] MEDS: DOXEPIN HCL 50 MG CAPSULE 100 MG PO (22:29)
[2022-08-24] MEDS: 0.9% Saline Lock 10 ML Syringe IV (22:35)
[2022-08-25] VITALS (22 sets, daily range): BP systolic 101–123; BP diastolic 59–79; PULSE 94–106; RESP 17–20; TEMP 36.1–36.9; O2SAT 90–100; BMI 20.9
[2022-08-25 05:29] LABS: Absolute Lymphocyte Count 1.99 X10^3/uL (0.83-4.51); Absolute Neutrophil Count 9.3 X10^3/uL (2.0-7.7); Basophil# 0.01 X10^3/uL; Basophil% 0.1 % (0-1); Hematocrit 23.8 % (37-47); Hemoglobin 7.3 g/dL (12.0-15.0); Lymphocyte # 1.99 X10^3/ul (0.83-4.51); Lymphocyte % 15.4 % (19-41); Mean Corp Hgb Conc 30.7 g/dL (32-36); Mean Corpuscular Hgb 26.1 pg (27.0-32.0); Mean Platelet Vol. 9.8 fl (6.2-12.0); Monocyte# 1.27 X10^3/uL; Monocyte% 9.8 % (0-10); NRBC Flagged by Analyzer 0.3 % (0-5); Neutrophil % 71.8 % (47-70); POSITIVE MORPHOLOGY YES; Platelet Count 379 K/mm3 (150-450); RBC Distribution Width CV 21.9 % (11.6-14.6); RBC Distribution Width SD 66.4 fl (35.1-43.9)
[2022-08-25 05:39] LABS: Differential Indicated SCAN CRITERIA MET
[2022-08-25 05:48] LABS: Anion Gap 7 (5-15); BUN 14 mg/dL (7-18); BUN/Creat Ratio 21.5 RATIO (10-20); Calcium,Total 7.9 mg/dL (8.5-10.1); Chloride 115 mmol/L (98-107); Creatinine, Serum 0.65 mg/dL (0.55-1.02); EST Glomerular Filtration Rate 98 mL/min (>60); Est Glom Filt Rate - Afr Amer 119 mL/min (>60); Estimated Creatinine Clearance 65.28 ml/min; Glucose 82 mg/dL (74-106); Magnesium 2.2 mg/dL (1.6-2.6); Potassium 3.4 mmol/L (3.5-5.1); Sodium Level 147 mmol/L (136-145)
[2022-08-25 06:13] LABS: Anisocytosis 2+; Differential Comment SCANNED; Macrocytosis 1+; Microcytosis 1+
[2022-08-25 06:14] LABS: Ovalocyte RARE; Polychromasia 1+
[2022-08-25] MEDS: Ipratropium/Albuterol Sulfate 3 ML AMPUL.NEB INHALATION ×3 (07:22→20:31)
--- NOTE | 2022-08-25 07:55 | PCM.PN.HOSP ---
Subjective Subjective Patient seen, scheduled to undergo EGD as part of work-up for her anemia Objective Data Objective Data Vital Signs: Vital Signs Temp Pulse Resp BP Pulse Ox O2 Del Method O2 Flow Rate 98.5 F 99 18 122/70 H 93 Nasal Cannula 6 08/25/22 06:46 08/25/22 07:19 08/25/22 06:46 08/25/22 06:46 08/25/22 06:46 08/25/22 06:46 08/25/22 06:46 FiO2 35 08/19/22 07:00 Oxygen Flow Rate (L/min) 6 Oxygen Delivery Method Nasal Cannula Weight: 48.5 kg Body Mass Index (BMI) 20.9 Intake & Output: Intake and Output for Last 24 Hours 08/23/22 08/24/22 08/25/22 23:59 23:59 23:59 Intake Total 1289.0 / 1289.0 793.5 / 913.5 132.5 / 132.5 Output Total 425 / 425 Balance 1289.0 / 1289.0 368.5 / 488.5 132.5 / 132.5 Medical Nutrition Assessment Dietitian: Malnutrition Criteria Met Start: 08/23/22 09:28 Freq: Status: Active Protocol: Document 08/23/22 09:28 (Rec: 08/23/22 09:28 [id number]) Nutrition Malnutrition Evidence of Malnutrition Exists Yes Malnutrition (severe): Acute Illness/Injury Evidenced By Suboptimal Energy Intake ( Severe),Physical Changes ( Moderate) Intake Problem Inadequate Oral Intake Etiology related to decreased appetite Signs/Symptoms as evidenced by estimated PO intake meeting <50% of estimated energy needs Status Active Problem Clinical Problem Acute Disease or Injury Related Malnutrition Etiology severe, acute malnutrition related to inadequate energy intake Signs/Symptoms as evidenced by estimated PO intake meeting <50% of estimated energy needs >5 days ; Moderate muscle wasting/fat loss evident per physical exam in orbital, temporal, clavicle, and acromion areas Status Active Problem Swallowing Difficulty Etiology r/t history of stroke, mental status Signs/Symptoms as evidenced by need for modified diet. Status Active Problem Recommendation Dietitian Recommendations/Changes Continue regular diet as tolerated with consistency/ texture as per speech therapy. Will provide ensure plus high protein w/ breakfast and ensure pudding BID w/ lunch and dinner for increased nutrition if consumed. If unable to safely tolerate nutrition via PO diet, may need to consider alternate nutrition support. Lab / Micro Data Result Diagrams: 08/25/22 04:56 08/25/22 04:56 Labs: Laboratory Results - last 24 hr 08/22/22 04:20: Diff Path Review Reviewed 08/25/22 04:56: WBC 13.0 H, RBC 2.80 L, Hgb 7.3 L, Hct 23.8 L, MCV 85.0, MCH 26.1 L, MCHC 30.7 L, RDW Std Deviation 66.4 H, RDW Coeff of Jeanine 21.9 H, Plt Count 379, MPV 9.8, Immature Gran % (Auto) 2.900 H, Neut % (Auto) 71.8 H, Lymph % (Auto) 15.4 L, [place] % (Auto) 9.8, Eos % (Auto) 0.0, Baso % (Auto) 0.1, Absolute Neuts (auto) 9.3 H, Absolute Lymphs (auto) 1.99, Nucleated RBC % 0.3, Differential Comment SCANNED, Polychromasia 1+, Anisocytosis 2+, Microcytosis 1+, Macrocytosis 1+, Ovalocytes RARE 08/25/22 04:56: Sodium 147 H, Potassium 3.4 L, Chloride 115 H, Carbon Dioxide 25.0, Anion Gap 7, BUN 14, Creatinine 0.65, Estim Creat Clear Calc 65.28, Est GFR (MDRD) Af Amer 119, Est GFR (MDRD) Non-Af 98, BUN/Creatinine Ratio 21.5 H, Glucose 82, Calcium 7.9 L, Magnesium 2.2 Micro: Microbiology 08/16/22 04:54 Blood Culture (Wb) - Anticubital Left Blood Culture - Final No growth in 5 days. 08/16/22 04:37 Blood Culture (Wb) - Anticubital Right Blood Culture - Final No growth in 5 days. 08/16/22 04:30 Sputum, Induced/Lukens Gram Stain - Final 08/16/22 04:30 Sputum, Induced/Lukens Respiratory Culture - Final Serratia marcescens Staphylococcus aureus Streptococcus agalactiae (B) 08/16/22 03:40 Urine Catheter - [place] Urine Culture - Final Culture exhibits no growth. Rhythm Strip Rhythm Strip: Sinus Tach Rate: 102 Ectopy: None Physical Exam Narrative GENERAL: cooperative HEENT: Atraumatic; normocephalic EYES; Anicteric, Normal Conjunctiva NECK; supple, normal thyroid, RESPIRATORY: Diminished to auscultation CARDIOVASCULAR: Regular S1 S2, GI: soft, normoactive bowel sounds, : No Renal angle tenderness; EXTREMITIES: No edema, no clubbing, MUSCULOSKELETAL: no muscle wasting NEURO: Awake; no lateralizing signs. SKIN: No Rash PSYCH; Flat affect Assessment & Plan Assessment/Plan (1) Acute GI bleeding: PLAN: Plan Patient is a 62-year-old lady admitted with hematemesis.? Hemoglobin on admission was 7.7, started on Protonix drip admitted to the intensive care unit for subsequent management she was placed on the vent for acute metabolic encephalopathy subsequently weaned off. Subsequent EGD 08/15/2022 did show Leena-Shen tear. Patient was placed on Protonix drip 1.? Acute blood loss anemia ? Secondary to upper GI bleed.? Patient has been admitted to the intensive care unit transfused with 2 unit PRBC subsequent serial H&H ordered -08/25/2022; patient hemoglobin still low at 7.3 plan is for patient to undergo repeat EGD 2.? Upper GI bleed ? Patient presented with hematemesis started on Protonix drip currently being monitored in the intensive care unit.? Consultation was placed toGI for possible endoscopic evaluation ? 08/24/2022 patient underwent EGD which demonstrated Leena-Shen tear 08/25/2022 patient scheduled to undergo repeat EGD. 3.? Hypovolemic shock ? Secondary to above patient was managed with IV fluid resuscitation as well as pressor support with norepinephrine 4.? Acute metabolic encephalopathy with impending respiratory failure secondary to pneumonia ? Patient had to be intubated to protect her airway consult placed to critical care for vent management ? 08/24/2022 sputum cultures did grow Serratia marcescens/staph/beta strep pneumonia 5.? Hypokalemia ? Secondary to GI losses from patient nausea vomiting corrected per protocol repeat potassium levels ordered 6.? Essential hypertension ? Patient's hypertensives on hold in view of her hypovolemic shock ? Patient cortisol was noted to be 13.9 placed on hydrocortisone plan is to start weaning down 7.? Dyslipidemia -Patient is on statin therapy, 8.? Depression with anxiety ? On Paxil as well as olanzapine 9.? Overlap syndrome?COPD and asthma ? Currently not in exacerbation aerosol treatments as needed 10.? 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 DVT prophylaxis -bilateral SCDs 12. Severe, acute malnutrition -related to inadequate energy intake as evidenced by estimated PO intake meeting <50% of estimated energy needs >5 days; Moderate muscle wasting/fat loss evident per physical exam in orbital, temporal, clavicle, and acromion areas. Continue regular diet as tolerated with consistency/texture as per speech therapy. Will provide ensure plus high protein w/ breakfast and ensure pudding BID w/ lunch and dinner for increased nutrition if consumed. Charges/Coding Visit Charges Inpatient E&M: 80001 Subs Hosp L2
[2022-08-25] MEDS: Ceftriaxone 1 GM/50 ML BAG IV (09:44)
[2022-08-25] MEDS: Hydrocortisone Sod Succinate 100 MG/2 ML Vial 50 MG IV ×2 (09:44→23:39)
--- NOTE | 2022-08-25 10:28 | PN.CC_ITS ---
Assessment & Plan Assessment/Plan (1) Acute GI bleeding: PLAN: Plan RECOMMENDATIONS: 1. Wean supplemental oxygen as tolerated. 2. Continue antimicrobials. 3. Continue PPI therapy. 4. Continue to wean steroids dose steroids as tolerated. 5. Encourage incentive spirometer use and mobilize patient as tolerated. 6. Tentative plans for EGD today. IMPRESSIONS: 1.??Acute hypoxemic respiratory failure The patient was ultimately intubated after she became unresponsive and experienced an emesis event with immediate concern for aspiration. The patient is growing Serratia and staph from her sputum.?Chest x-ray showed some basilar atelectasis.? Encourage incentive spirometer.? Continue to wean supplemental oxygen as tolerated to maintain saturations at or above 90%. 2.??Acute blood loss anemia with hemorrhagic shock/relative adrenal insufficiency The patient presented with abdominal pain and hematemesis and required transfusion of blood products due to worsening anemia.? Plan to continue to monitor serial H&H and transfuse if hemoglobin drops below 7 g/dL.? Continue Protonix as ordered.? Continue to wean stress dose steroids as tolerated. Gastroenterology is planning for EGD today. 3.??History of CVA/hypertension/anxiety/depression/questionable COPD/hypothyroidism/tobacco dependency Complicates care, management, recovery and prognosis.? Continue bronchodilators as ordered. This note was generated with [employer] dictation software. It may contain incorrect words, spelling, and punctuation that were not noted in checking the note before signing. Subjective Subjective The patient was seen and examined at the bedside this morning. Events from the last 24 hours have been reviewed. The patient is currently afebrile, hemodynamically stable and maintaining appropriate oxygen saturations on 7 L/min. However, the patient continues to remove her nasal cannula intermittently which leads to further hypoxia. There are tentative plans for upper endoscopy today. Hemoglobin is stable at 7.3 g/dL. Objective Data Objective Data The patient's most recent lab work, culture data and imaging studies have all been personally reviewed. Surface echocardiogram demonstrated normal LV size and function with an ejection fraction of 65%. Sputum culture was positive for Serratia and staph aureus. Vital Signs: Vital Signs Temp Pulse Resp BP Pulse Ox O2 Del Method O2 Flow Rate 98.5 F 105 H 18 122/79 H 90 Nasal Cannula 7 08/25/22 08:12 08/25/22 08:12 08/25/22 08:12 08/25/22 08:12 08/25/22 08:22 08/25/22 08:22 08/25/22 08:22 FiO2 35 08/19/22 07:00 Oxygen Flow Rate (L/min) 7 Oxygen Delivery Method Nasal Cannula Weight: 106 lb 14.787 oz Body Mass Index (BMI) 20.9 Intake & Output: Intake and Output for Last 24 Hours 08/23/22 08/24/22 08/25/22 23:59 23:59 23:59 Intake Total 1289.0 / 1289.0 793.5 / 913.5 292.5 / 292.5 Output Total 425 / 425 Balance 1289.0 / 1289.0 368.5 / 488.5 292.5 / 292.5 Medical Nutrition Assessment Dietitian: Malnutrition Criteria Met Start: 08/23/22 09:28 Freq: Status: Active Protocol: Document 08/23/22 09:28 (Rec: 08/23/22 09:28 [id number]) Nutrition Malnutrition Evidence of Malnutrition Exists Yes Malnutrition (severe): Acute Illness/Injury Evidenced By Suboptimal Energy Intake ( Severe),Physical Changes ( Moderate) Intake Problem Inadequate Oral Intake Etiology related to decreased appetite Signs/Symptoms as evidenced by estimated PO intake meeting <50% of estimated energy needs Status Active Problem Clinical Problem Acute Disease or Injury Related Malnutrition Etiology severe, acute malnutrition related to inadequate energy intake Signs/Symptoms as evidenced by estimated PO intake meeting <50% of estimated energy needs >5 days ; Moderate muscle wasting/fat loss evident per physical exam in orbital, temporal, clavicle, and acromion areas Status Active Problem Swallowing Difficulty Etiology r/t history of stroke, mental status Signs/Symptoms as evidenced by need for modified diet. Status Active Problem Recommendation Dietitian Recommendations/Changes Continue regular diet as tolerated with consistency/ texture as per speech therapy. Will provide ensure plus high protein w/ breakfast and ensure pudding BID w/ lunch and dinner for increased nutrition if consumed. If unable to safely tolerate nutrition via PO diet, may need to consider alternate nutrition support. Lab / Micro Data Attestation: I reviewed the patient's lab results. Result Diagrams: 08/25/22 04:56 08/25/22 04:56 Labs: Laboratory Results - last 24 hr 08/22/22 04:20: Diff Path Review Reviewed 08/25/22 04:56: WBC 13.0 H, RBC 2.80 L, Hgb 7.3 L, Hct 23.8 L, MCV 85.0, MCH 26.1 L, MCHC 30.7 L, RDW Std Deviation 66.4 H, RDW Coeff of Jeanine 21.9 H, Plt Count 379, MPV 9.8, Immature Gran % (Auto) 2.900 H, Neut % (Auto) 71.8 H, Lymph % (Auto) 15.4 L, [place] % (Auto) 9.8, Eos % (Auto) 0.0, Baso % (Auto) 0.1, Absolute Neuts (auto) 9.3 H, Absolute Lymphs (auto) 1.99, Nucleated RBC % 0.3, Differential Comment SCANNED, Polychromasia 1+, Anisocytosis 2+, Microcytosis 1+, Macrocytosis 1+, Ovalocytes RARE 08/25/22 04:56: Sodium 147 H, Potassium 3.4 L, Chloride 115 H, Carbon Dioxide 25.0, Anion Gap 7, BUN 14, Creatinine 0.65, Estim Creat Clear Calc 65.28, Est GFR (MDRD) Af Amer 119, Est GFR (MDRD) Non-Af 98, BUN/Creatinine Ratio 21.5 H, Glucose 82, Calcium 7.9 L, Magnesium 2.2 Micro: Microbiology 08/16/22 04:54 Blood Culture (Wb) - Anticubital Left Blood Culture - Final No growth in 5 days. 08/16/22 04:37 Blood Culture (Wb) - Anticubital Right Blood Culture - Final No growth in 5 days. 08/16/22 04:30 Sputum, Induced/Lukens Gram Stain - Final 08/16/22 04:30 Sputum, Induced/Lukens Respiratory Culture - Final Serratia marcescens Staphylococcus aureus Streptococcus agalactiae (B) 08/16/22 03:40 Urine Catheter - [place] Urine Culture - Final Culture exhibits no growth. ABG Data ABG results: ABG 08/16/22 06:52 Specimen Type ART Sample Site R Radial pH 7.41 Bicarbonate Actual 22.1 Total CO2 23 Base Excess -3 L O2 Saturation 95 O2 % 40 ABG pCO2 34.6 L ABG pO2 75 Luis Test Positive Respiration Rate 14 O2 Delivery Device Adult Vent Vent Mode AC Tidal Volume 380 POC PEEP 5 Radiography Diagnostic Testing: Radiology Impression KUB X-Ray 08/16/22 04:13 IMPRESSION: 1. Excellent placement of OG tube, tip is in the gastric antrum. 2. No acute abnormality in the abdomen and no other additional findings or changes when compared to 07/30/2022. Electronically Signed: Ryan Garcia MD at 8:36 EDT , Chest X-Ray 08/16/22 04:41 IMPRESSION: Satisfactory ET tube position. Decreased basilar atelectasis. Electronically Signed: Heydi Witt MD at 7:33 EDT , Chest X-Ray 08/16/22 06:32 IMPRESSION: 1. Satisfactory placement of right IJ approach central line catheter, tip is in the distal SVC. 2. No acute cardiopulmonary pathology. 3. Distal repositioning of ET tube, tip is close to the jorje and facing the right mainstem bronchus. 4. OG tube tip and sidehole remain inside the gastric cavity. Electronically Signed: Ryan Garcia MD at 8:35 EDT , Rhythm Strip Rhythm Strip: Sinus Tach Rate: 102 Ectopy: None Physical Exam Const alert and no apparent distress General Appearance: frail HEENT normocephalic and head/scalp atraumatic Eyes PERRL, EOMs intact bilaterally and conjunctivae normal Neck supple General: trachea midline Chest inspection of chest normal Resp normal respiratory effort Auscultation: diminished lung sounds; Negative for rales, rhonchi or wheezes Cardio regular rate and regular rhythm GI normal to inspection, nondistended, normoactive bowel sounds Extremity no clubbing, cyanosis or edema Skin no rashes or lesions noted Neuro no focal motor deficits Psych cooperative and affect normal Charges/Coding Visit Charges Inpatient E&M: 51741 Subs Hosp L2
--- NOTE | 2022-08-25 14:50 | NURSING ---
Pt to OR via OR tech. Sister, Dian at bedside informed of where OR waiting room is located. Pt anxious prior to transport. Oxygen on at 6L.
--- NOTE | 2022-08-25 16:00 | EGD_PTH ---
PATIENT: ALISTAIR MUELLER LOC: [facility] U#:[id number] AGE/SX: 62/F ROOM: [facility] RE08/15/[address]: Dr. Sherlyn Hayes DO : 1960 BED: 1 DIS: 08/27/2022 SPEC #: [id number] RECD: 08/25/22 16:55 STATUS: GRANT REIdris #: [id number] RIYA: 08/25/22 16:[address]: Luis Negrete DEPT: SURGICAL PATHOLOGY RECD BY: Ryan Castrejon ENTERED: 08/26/22 07:18 SP TYPE: EGD BIOPSY OTHR DR: MD Dr. Alissa Silva MD Dr. Derek Brown, DO Dr. David Kittoe, MD Dr. Kathryn Lee, DO Dr. Paige Pierce, MD Dr. Tai Chi Kwok, MD Tissues: Esophagus, NOS Procedures: Special Stain Group I Surgery Specimen Level IV GMS Stain (control) HEADER OPERATION: EGD with dilatation and biopsy (MAC) PRE-OP DIAGNOSIS: Anemia TISSUE SUBMITTED: Distal esophagus biopsy MICROSCOPIC DIAGNOSIS Distal esophagus, biopsy: Extensive ulceration, acute and chronic inflammation and granulation tissue reaction. See comment. MARGARET:sandra 08/27/2022 COMMENT Overlying epithelium is not seen in the specimen. Special stain for fungi is negative for organisms; matched control is appropriate. Case has been reviewed in consultation with Dr. Hammonds who concurs with the above diagnosis. IDC:AM MICROSCOPIC DESCRIPTION Slides are reviewed. GROSS DESCRIPTION Received in fixative is one container labeled with the patient's name and designated biopsy distal esophagus. The specimen consists of multiple irregular fragments of light kerr soft tissue that in aggregate measure 0.6 x 0.4 x 0.1 cm. The specimen is totally submitted in one cassette. / MARGARET:sandra 08/26/2022 TC:2 CPT: 49831, 28455
--- NOTE | 2022-08-25 16:24 | HP.PCM_ITS ---
History and Physical Date of Admission: 08/20/22 Assessment & Plan Assessment/Plan (1) Anemia: PLAN:?Her current acute blood loss anemia is likely secondary to lesion in upper GI tract.? The differential diagnosis would be mildly Shen tear, erosive esophagitis, angiodysplasia associated with her cerebrovascular accident, side effects from paroxetine therapy, side effects from aspirin therapy.? Recommended continue PPI drip at this time.? I would not recommend octreotide at this time because she seems to be becoming more stable. (2) Esophageal thickening: PLAN:?Thick-walled fluid-filled distal esophagus and hiatal hernia.? This was not noted on prior CT of the chest dated 05/20/2022 ER on low dose lung screening study of 04/14/2022.? She will need an upper endoscopy to evaluate upper GI tract.? At this time she is having significant polyuria and her blood pressure is being maintained.? We will continue PPI drip and as long as her hemoglobin stays stable, along with her blood pressure we will wait to perform an upper endoscopy. HPI Consult Data Date of Consult:?08/16/22 HPI Narrative Reason for Consultation:?upper GI bleed HPI Narrative: ALISTAIR MUELLER, is a 62 F who presented to the ED with? nausea vomiting since Wednesday.? She admitted to some coffee-ground material in her vomitus along with epigastric abdominal pain.? No melena.? No dysuria.? Her past medical history most notable for cerebrovascular disease, disabled fo llowing a stroke in 2014 left her with left hemiparesis and dysarthria, dyslipidemia, nicotine dependence active smoker for over 30 years. She has a history of blood loss anemia, EGD in July 2020 showed a grade 3 erosive esophagitis, gastritis with hemorrhage and a hiatus hernia.? Pathology showed squamous mucosa with extensive ulceration and marked acute inflammation.? A follow-up EGD was recommended then but appears patient did not follow through.? She has been on PPI therapy since.? Along with except and a baby aspirin. [facility] Medical History? Anemia Anxiety and depression Arthritis Asthma COPD (chronic obstructive pulmonary disease) Difficulty swallowing Emphysema lung Encounter for screening for malignant neoplasm of lung in current smoker with 30 pack year history or greater Gammopathy GERD (gastroesophageal reflux disease) History of back problems Hyperlipidemia Hypothyroidism Iron deficiency anemia due to chronic blood loss Left hemiplegia Nicotine abuse Osteoporosis Polycythemia vera Thrombocytosis Tobacco use disorder, continuous Home Medications atorvastatin 40 mg tablet 40 mg PO DAILY cholesterol 12/26/18 [History Last Taken 07/21/20] doxepin 100 mg capsule 100 mg PO QHS depression 12/10/19 [History Last Taken 07/21/20] paroxetine HCl 20 mg tablet 20 mg PO DAILY depression 12/10/19 [History Last Taken 07/21/20] bupropion HCl (smoking deter) 150 mg tablet,12 hr sustained-release(smoking deterrent) 150 mg PO BID depression 05/20/20 [History Last Taken 07/22/20] ergocalciferol (vitamin D2) 1,250 mcg (50,000 unit) capsule 50,000 units PO QMONTH supplement 05/20/20 [History Last Taken 07/09/20] melatonin 10 mg tablet,extended release,multiphase 10 mg PO QHS sleep 05/20/20 [History Last Taken 07/21/20] cyclobenzaprine 10 mg tablet 10 mg PO DAILY muscle spasm 07/16/20 [History Last Taken 07/21/20] famotidine 40 mg tablet 40 mg PO DAILY gerd 07/22/20 [History Last Taken Unknown] nicotine 7 mg/24 hr daily transdermal patch 7 mg TP DAILY smoking 07/22/20 [History Last Taken Unknown] acetaminophen 500 mg tablet 2 tab PO TID PRN Pain Or Fever #1 TAB 07/26/20 [Rx Last Taken Unknown] aspirin 81 mg tablet,delayed release 81 mg PO BID health maintenance ##0 07/26/20 [Rx Last Taken 07/18/20] pantoprazole 20 mg tablet,delayed release 20 mg PO BID #60 tabs 07/26/20 [Rx Last Taken Unknown] potassium chloride 20 mEq oral packet (Klor-Con) 20 meq PO DAILY 03/06/22 [History Last Taken Unknown] oxycodone-acetaminophen 5 mg-325 mg tablet (Percocet) 1 tab PO Q6H PRN pain 3 days #12 tabs 05/30/22 [Rx Last Taken Unknown] Allergy/AdvReac Type Severity Reaction Status Date / Time No Known Allergies Allergy ? ? Verified 08/15/22 21:14 Family History? MotherDiabetes Cancer Family History? other ? Surgical History? History of right knee surgery right ankle surgery Social History? Smoking Status:? Current every day smoker tobacco type: cigarettes alcohol intake:? never substance use type:? does not use ROS Review of Systems ROS Unobtainable:?due to endotracheal tube and due to mental status Physical Exam Narrative GENERAL: Sedated on the vent HEENT: Atraumatic; normocephalic EYES; Anicteric, Normal Conjunctiva NECK; supple, normal thyroid, RESPIRATORY: Diminished to auscultation CARDIOVASCULAR:? Regular S1 S2, GI:? soft, normoactive bowel sounds, : No Renal angle tenderness; EXTREMITIES:? No edema, no clubbing, MUSCULOSKELETAL:? no muscle wasting NEURO: Sedated on the vent on the vent SKIN:? No Rash Lab / Micro Data Result Diagrams: 08/16/22 06:10? 08/16/22 06:10? Labs: Laboratory Results - last 24 hr 08/15/22 16:20:?PT 13.3, INR 1.0, APTT 25.4 08/15/22 16:20:?Blood Type O POSITIVE, Antibody Screen NEGATIVE 08/15/22 16:20:?WBC 21.2 H,?RBC 3.42 L,?Hgb 7.7 L,?Hct 26.6 L,?MCV 77.8 L,?MCH 22.5 L,?MCHC 28.9 L,?RDW Std Deviation 51.5 H,?RDW Coeff of Jeanine 18.2 H,?Plt Count 657 H, MPV 9.1, Immature Gran % (Auto) 0.700,?Neut % (Auto) 85.0 H,?Lymph % (Auto) 4.0 L,?[place] % (Auto) 10.1 H, Eos % (Auto) 0.0, Baso % (Auto) 0.2,? Absolute Neuts (auto) 18.0 H, Absolute Lymphs (auto) 0.85, Nucleated RBC % 0, Differential Comment SCANNED, Diff Path Review May foll, Hypochromasia 3+, Ovalocytes 1+, Crenated Cell 1+, Schistocytes RARE 08/15/22 16:20:?Sodium 143,?Potassium 3.3 L, Chloride 106, Carbon Dioxide 29.0, Anion Gap 8,?BUN 23 H, Creatinine 0.97, Estim Creat Clear Calc 43.75, Est GFR (MDRD) Af Amer 75, Est GFR (MDRD) Non-Af 62,?BUN/Creatinine Ratio 23.7 H,? Glucose 122 H,?Calcium 8.2 L, Total Bilirubin 0.70, AST 19, ALT 19,?Alkaline Phosphatase 141 H,?Total Protein 6.1 L,?Albumin 2.2 L, Globulin 3.9,? Albumin/Globulin Ratio 0.6 L,?Lipase 70 L 08/15/22 16:20:?Magnesium 1.8 08/15/22 16:20:?Crossmatch See Detail 08/15/22 16:20:?Crossmatch See Detail 08/15/22 22:00:?Hgb 6.0 L*,?Hct 20.6 L 08/16/22 03:40:?Urine Color Yellow, Urine Clarity Clear, Urine pH 6.5, Ur Specific [place] 1.015,?Urine Protein 15 H, Urine Glucose (UA) Normal,?Urine Ketones 5 H,?Urine Occult Blood 150 H, Urine Nitrite Negative, Urine Bilirubin Negative,?Urine Urobilinogen 1 H,?Ur Leukocyte Esterase 25 H, Urine RBC 10-25 SEEN, Urine WBC 0-5 SEEN, Ur Squamous Epith Cells 0 SEEN, Urine Bacteria 1+, Urine Mucus 0 SEEN 08/16/22 06:10:?WBC 19.5 H,?RBC 3.56 L,?Hgb 9.3 L,?Hct 29.2 L,?MCV 82.0? D,?MCH 26.1 L,?MCHC 31.8 L D,?RDW Std Deviation 53.0 H,?RDW Coeff of Jeanine 17.7 H, Plt Count 421, MPV 9.0, Immature Gran % (Auto) 0.800,?Neut % (Auto) 75.8 H,?Lymph % (Auto) 10.8 L,?[place] % (Auto) 12.5 H, Eos % (Auto) 0.0, Baso % (Auto) 0.1,? Absolute Neuts (auto) 14.8 H, Absolute Lymphs (auto) 2.11, Nucleated RBC % 0, Differential Comment SCANNED, Diff Path Review May foll 08/16/22 06:10:?Sodium 147 H,?Potassium 3.4 L,?Chloride 114 H, Carbon Dioxide 23.0, Anion Gap 10,?BUN 34 H, Creatinine 0.88, Estim Creat Clear Calc 48.22, Est GFR (MDRD) Af Amer 84, Est GFR (MDRD) Non-Af 69,?BUN/Creatinine Ratio 38.6 H, Glucose 101,?Calcium 7.0 L,?Total Bilirubin 1.50 H, AST 18, ALT 15, Alkaline Phosphatase 100,?Total Protein 5.0 L,?Albumin 1.9 L, Globulin 3.1,? Albumin/Globulin Ratio 0.6 L,?Lipase 42 L ABG Data ABG results: ABG ? 08/16/22 ? 06:52 Specimen Type ?ART Sample Site ?R Radial pH ?7.41 Bicarbonate Actual ?22.1 Total CO2 ?23 Base Excess ?-3 L O2 Saturation ?95 O2 % ?40 ABG pCO2 ?34.6 L ABG pO2 ?75 Luis Test ?Positive Respiration Rate ?14 O2 Delivery Device ?Adult Vent Vent Mode ?AC Tidal Volume ?380 POC PEEP ?5 Rhythm Strip Rhythm Strip:?Sinus Tach Rate:?113 Ectopy:?None Radiology Impression Abdomen/Pelvis CT? 08/15/22 18:19 IMPRESSION: 1.? Thick-walled fluid-filled distal esophagus and hiatal hernia.? This was not noted on prior CT of the chest dated 05/20/2022 ER on low dose lung screening study of 04/14/2022.? Further follow-up with endoscopy or upper GI suggested. 2.? Right renal cyst. 3.? Increased rectal feces suggesting constipation. 4.? Remote compression deformity of T10. 5.? Left hip replacement. ? Electronically Signed: Rosalio Purdy DO at 20:37 EDT Reading Location ID and State: [address] [place] [address] Tel [phone], Service support? , ? Chest X-Ray? 08/16/22 03:19 IMPRESSION: ? Atelectasis in the lower lung slade bilaterally.? No demonstrated pulmonary infiltrates.. ? Electronically Signed: Andrei Alicia MD at 5:05 EDT , ? KUB X-Ray? 08/16/22 04:13 IMPRESSION: ? 1.? Excellent placement of OG tube, tip is in the gastric antrum. ? 2.? No acute abnormality in the abdomen and no other additional findings or changes when compared to 07/30/2022. ? Electronically Signed: Ryan Garcia MD at 8:36 EDT , ? Chest X-Ray? 08/16/22 04:41 IMPRESSION: Satisfactory ET tube position. Decreased basilar atelectasis. ? Electronically Signed: Heydi Witt MD at 7:33 EDT , ? Chest X-Ray? 08/16/22 06:32 IMPRESSION: ? 1.? Satisfactory placement of right IJ approach central line catheter, tip is in the distal SVC. ? 2.? No acute cardiopulmonary pathology. ? 3.? Distal repositioning of ET tube, tip is close to the jorje and facing the right mainstem bronchus. ? 4.? OG tube tip and sidehole remain inside the gastric cavity. I have re-examined the patient. There are no clinical changes since date of exam.
--- NOTE | 2022-08-25 16:54 | OP.EGD_ITS ---
Patient Name: Carolyn Watt Procedure Date: 08/25/2022 4:22 PM Date of : 1960 Age: 62 Procedure: Upper GI endoscopy Indications: Acute post hemorrhagic anemia, Iron deficiency anemia, Hematemesis Providers: Luis Negrete DO Medicines: Monitored Anesthesia Care Patient Profile: This is a 62 year old female. Refer to note in patient chart for documentation of history and physical. Patient has symptoms of acute dyspepsia and acute nausea. Complications: No immediate complications. Procedure: Pre-Anesthesia Assessment: - Prior to the procedure, a History and Physical was performed, and patient medications and allergies were reviewed. The risks and benefits of the procedure and the sedation options and risks were discussed with the patient. All questions were answered and informed consent was obtained. Patient identification and proposed procedure were verified by the physician in the pre-procedure area. Mental Status Examination: alert and oriented. Airway Examination: normal oropharyngeal airway and neck mobility. Respiratory Examination: clear to auscultation. CV Examination: normal. Prophylactic Antibiotics: The patient does not require prophylactic antibiotics. Prior Anticoagulants: The patient has taken no previous anticoagulant or antiplatelet agents. ASA Grade Assessment: II - A patient with mild systemic disease. After reviewing the risks and benefits, the patient was deemed in satisfactory condition to undergo the procedure. The anesthesia plan was to use moderate sedation / analgesia (conscious sedation). Immediately prior to administration of medications, the patient was re-assessed for adequacy to receive sedatives. The heart rate, respiratory rate, oxygen saturations, blood pressure, adequacy of pulmonary ventilation, and response to care were monitored throughout the procedure. The physical status of the patient was re-assessed after the procedure. After obtaining informed consent, the endoscope was passed under direct vision. Throughout the procedure, the patient's blood pressure, pulse, and oxygen saturations were monitored continuously. The gastroscope was introduced through the mouth, and advanced to the second part of duodenum. The upper GI endoscopy was accomplished without difficulty. The patient tolerated the procedure well. Scope In: 4:41:04 PM Scope Out: 4:46:59 PM Total Procedure Duration Time 0 hours 5 minutes 55 seconds Findings: LA Grade D (one or more mucosal breaks involving at least 75% of esophageal circumference) esophagitis with bleeding was found 34 to 39 cm from the incisors. Biopsies were taken with a cold forceps for histology. Verification of patient identification for the specimen was done. Estimated blood loss was minimal. Mucosal changes including ringed esophagus, longitudinal furrows, small-caliber esophagus and white plaques were found in the middle third of the esophagus and in the lower third of the esophagus. Biopsies were taken with a cold forceps for histology. Verification of patient identification for the specimen was done. Estimated blood loss was minimal. A TTS dilator was passed through the scope. Dilation with a 15-16.5-18 mm balloon dilator was performed to 16 mm. The dilation site was examined following endoscope reinsertion and showed moderate improvement in luminal narrowing. Estimated blood loss was minimal. A medium-sized hiatal hernia was present. No other significant abnormalities were identified in a careful examination of the stomach. No gross lesions were noted in the second portion of the duodenum. Impression: - LA Grade D erosive esophagitis. Biopsied. - Esophageal mucosal changes consistent with eosinophilic esophagitis. Biopsied. Dilated. - Medium-sized hiatal hernia. - No gross lesions in the second portion of the duodenum. Recommendation: - Resume previous diet. - Give Protonix (pantoprazole): initiate therapy with 80 mg IV bolus, then 8 mg/hr IV by continuous infusion today. - Continue present medications. Procedure Code(s): --- Professional --- 40991, Esophagogastroduodenoscopy, flexible, transoral; with transendoscopic balloon dilation of esophagus (less than 30 mm diameter) 90172, 59,51, Esophagogastroduodenoscopy, flexible, transoral; with biopsy, single or multiple CPT copyright 2017 [employer]. All rights reserved. The codes documented in this report are preliminary and upon digital designer review may be revised to meet current compliance requirements. Luis Negrete DO 08/25/2022 4:53:52 PM This report has been signed electronically. Number of Addenda: 0 Note Initiated On: 08/25/2022 4:22 PM
--- NOTE | 2022-08-25 16:55 | OP.CCLET_ITS ---
08/25/2022 Zachary Vargas MD [address] [place] [address] Re : Upper GI endoscopy procedure for Carolyn Watt Dear Dr. Vargas This procedure was performed on Thursday, August 25, 2022. My impressions and recommendations are as follows: Impressions : - LA Grade D erosive esophagitis. Biopsied. - Esophageal mucosal changes consistent with eosinophilic esophagitis. Biopsied. Dilated. - Medium-sized hiatal hernia. - No gross lesions in the second portion of the duodenum. Recommendations : - Resume previous diet. - Give Protonix (pantoprazole): initiate therapy with 80 mg IV bolus, then 8 mg/hr IV by continuous infusion today. - Continue present medications. My findings are described in the full procedure note, which is enclosed. If I can be of further assistance, please feel free to contact me at . Sincerely, Luis Friend, 08/25/2022 4:53:52 PM This report has been signed electronically.
[2022-08-25] MEDS: Ondansetron 4 MG/2 ML Vial IV (17:36)
[2022-08-25] MEDS: Midodrine HCl 5 MG Tablet 10 MG PO (17:37)
[2022-08-25] MEDS: DOXEPIN HCL 50 MG CAPSULE 100 MG PO (23:38)
[2022-08-25] MEDS: Acetaminophen 325 MG Tablet 650 MG PO (23:39)
[2022-08-25] MEDS: Atorvastatin Calcium 40 MG Tablet PO (23:39)
[2022-08-25] MEDS: buPROPion 75 MG Tablet 150 MG PO (23:42)
[2022-08-26] VITALS (24 sets, daily range): BP systolic 102–128; BP diastolic 58–89; PULSE 88–106; RESP 16–29; TEMP 36–37.1; O2SAT 85–98
[2022-08-26 06:56] LABS: Absolute Lymphocyte Count 1.87 X10^3/uL (0.83-4.51); Absolute Neutrophil Count 9.1 X10^3/uL (2.0-7.7); Basophil# 0.02 X10^3/uL; Basophil% 0.2 % (0-1); Eosinophil# 0.01 X10^3/uL; Eosinophils% 0.1 % (0-5); Hemoglobin 6.8 g/dL (12.0-15.0); Lymphocyte # 1.87 X10^3/ul (0.83-4.51); Lymphocyte % 15.4 % (19-41); Mean Corp Hgb Conc 29.6 g/dL (32-36); Mean Corpuscular Hgb 25.2 pg (27.0-32.0); Mean Corpuscular Volume 85.2 fL (81-99); Mean Platelet Vol. 9.7 fl (6.2-12.0); Monocyte# 0.82 X10^3/uL; Monocyte% 6.8 % (0-10); NRBC Flagged by Analyzer 0.2 % (0-5); Neutrophil # 9.11 X10^3/uL (2.7-7.7); Neutrophil % 75.1 % (47-70); POSITIVE MORPHOLOGY YES; Platelet Count 353 K/mm3 (150-450); RBC Distribution Width CV 21.8 % (11.6-14.6); RBC Distribution Width SD 65.7 fl (35.1-43.9); White Blood Count 12.1 K/mm3 (4.4-11.0)
[2022-08-26 06:59] LABS: Differential Indicated SCAN CRITERIA MET
[2022-08-26] MEDS: Ipratropium/Albuterol Sulfate 3 ML AMPUL.NEB INHALATION ×3 (07:10→19:53)
[2022-08-26 07:12] LABS: Acanthocytes RARE; Anisocytosis 2+; Hypochromasia 1+; Ovalocyte RARE
[2022-08-26 07:28] LABS: Anion Gap 6 (5-15); BUN 11 mg/dL (7-18); BUN/Creat Ratio 16.6 RATIO (10-20); Calcium,Total 7.7 mg/dL (8.5-10.1); Chloride 115 mmol/L (98-107); Creatinine, Serum 0.66 mg/dL (0.55-1.02); EST Glomerular Filtration Rate 96 mL/min (>60); Est Glom Filt Rate - Afr Amer 116 mL/min (>60); Glucose 77 mg/dL (74-106); Potassium 3.6 mmol/L (3.5-5.1); Sodium Level 146 mmol/L (136-145)
--- NOTE | 2022-08-26 08:09 | CASEMGMT ---
Discharge Crew Member DEBBIE reached out. Pre-cert has been obtained. Fran TRIANA Claims Counsel
[2022-08-26] MEDS: Midodrine HCl 5 MG Tablet 10 MG PO ×3 (08:32→16:12)
--- NOTE | 2022-08-26 08:39 | CASEMGMT ---
Social Work Precert has been obtained from insurance. SW updated pt and left VM with pt sister that [facility] has accepted and insurance has given precert. Physician updated. Plan: [facility], skilled. When medically ready KOBI Banegas
--- NOTE | 2022-08-26 08:54 | PCM.PN.INT ---
Assessment & Plan Assessment/Plan (1) Acute GI bleeding: PLAN: Plan RECOMMENDATIONS: 1. Wean supplemental oxygen as tolerated. 2. Continue antimicrobials. 3. Continue PPI therapy. 4. Discontinue stress dose steroids. 5. Encourage incentive spirometer use and mobilize patient as tolerated. 6. Transfuse 1 unit packed red blood cells. Check H&H posttransfusion. IMPRESSIONS: 1.??Acute hypoxemic respiratory failure The patient was ultimately intubated after she became unresponsive and experienced an emesis event with immediate concern for aspiration. The patient is growing Serratia and staph from her sputum.?Chest x-ray showed some basilar atelectasis.? Encourage incentive spirometer.? Continue to wean supplemental oxygen as tolerated to maintain saturations at or above 90%. 2.??Acute blood loss anemia with hemorrhagic shock/relative adrenal insufficiency The patient presented with abdominal pain and hematemesis and required transfusion of blood products due to worsening anemia.? Plan to continue to monitor serial H&H and transfuse if hemoglobin drops below 7 g/dL.? Continue Protonix as ordered.? EGD revealed evidence of erosive esophagitis and moderate hiatal hernia. 3.??History of CVA/hypertension/anxiety/depression/questionable COPD/hypothyroidism/tobacco dependency Complicates care, management, recovery and prognosis.? Continue bronchodilators as ordered. This note was generated with [employer] dictation software. It may contain incorrect words, spelling, and punctuation that were not noted in checking the note before signing. Subjective Subjective The patient was seen and examined at the bedside this morning. Events from the last 24 hours have been reviewed. The patient is currently afebrile, hemodynamically stable and maintaining appropriate oxygen saturations on 4 L/min. Upper endoscopy yesterday revealed evidence of erosive esophagitis along with a medium sized hiatal hernia. Hemoglobin this morning was noted to be 6.8 g/dL. Orders for 1 unit of packed red blood cells have already been placed. Objective Data Objective Data The patient's most recent lab work, culture data and imaging studies have all been personally reviewed. Surface echocardiogram demonstrated normal LV size and function with an ejection fraction of 65%. Sputum culture was positive for Serratia and staph aureus. Vital Signs: Vital Signs Temp Pulse Resp BP Pulse Ox O2 Del Method O2 Flow Rate 98.8 F 98 18 103/68 91 Nasal Cannula 4 08/26/22 08:25 08/26/22 08:25 08/26/22 08:25 08/26/22 08:25 08/26/22 08:25 08/26/22 08:25 08/26/22 08:25 FiO2 35 08/19/22 07:00 Oxygen Flow Rate (L/min) 4 Oxygen Delivery Method Nasal Cannula Weight: 108 lb 14.534 oz Body Mass Index (BMI) 20.9 Intake & Output: Intake and Output for Last 24 Hours 08/24/22 08/25/22 08/26/22 23:59 23:59 23:59 Intake Total 793.5 / 913.5 442.5 / 562.5 219.83 / 219.83 Output Total 425 / 425 200 / 200 Balance 368.5 / 488.5 242.5 / 362.5 219.83 / 219.83 Medical Nutrition Assessment Dietitian: Malnutrition Criteria Met Start: 08/23/22 09:28 Freq: Status: Active Protocol: Document 08/23/22 09:28 (Rec: 08/23/22 09:28 [id number]) Nutrition Malnutrition Evidence of Malnutrition Exists Yes Malnutrition (severe): Acute Illness/Injury Evidenced By Suboptimal Energy Intake ( Severe),Physical Changes ( Moderate) Intake Problem Inadequate Oral Intake Etiology related to decreased appetite Signs/Symptoms as evidenced by estimated PO intake meeting <50% of estimated energy needs Status Active Problem Clinical Problem Acute Disease or Injury Related Malnutrition Etiology severe, acute malnutrition related to inadequate energy intake Signs/Symptoms as evidenced by estimated PO intake meeting <50% of estimated energy needs >5 days ; Moderate muscle wasting/fat loss evident per physical exam in orbital, temporal, clavicle, and acromion areas Status Active Problem Swallowing Difficulty Etiology r/t history of stroke, mental status Signs/Symptoms as evidenced by need for modified diet. Status Active Problem Recommendation Dietitian Recommendations/Changes Continue regular diet as tolerated with consistency/ texture as per speech therapy. Will provide ensure plus high protein w/ breakfast and ensure pudding BID w/ lunch and dinner for increased nutrition if consumed. If unable to safely tolerate nutrition via PO diet, may need to consider alternate nutrition support. Lab / Micro Data Attestation: I reviewed the patient's lab results. Result Diagrams: 08/26/22 06:10 08/26/22 06:10 Labs: Laboratory Results - last 24 hr 08/26/22 06:10: WBC 12.1 H, RBC 2.70 L, Hgb 6.8 L, Hct 23.0 L, MCV 85.2, MCH 25.2 L, MCHC 29.6 L, RDW Std Deviation 65.7 H, RDW Coeff of Jeanine 21.8 H, Plt Count 353, MPV 9.7, Immature Gran % (Auto) 2.400 H, Neut % (Auto) 75.1 H, Lymph % (Auto) 15.4 L, [place] % (Auto) 6.8, Eos % (Auto) 0.1, Baso % (Auto) 0.2, Absolute Neuts (auto) 9.1 H, Absolute Lymphs (auto) 1.87, Nucleated RBC % 0.2, Hypochromasia 1+, Anisocytosis 2+, Ovalocytes RARE, Acanthocytes (Spur) RARE 08/26/22 06:10: Sodium 146 H, Potassium 3.6, Chloride 115 H, Carbon Dioxide 25.0, Anion Gap 6, BUN 11, Creatinine 0.66, Estim Creat Clear Calc 64.30, Est GFR (MDRD) Af Amer 116, Est GFR (MDRD) Non-Af 96, BUN/Creatinine Ratio 16.6, Glucose 77, Calcium 7.7 L 08/26/22 08:15: Crossmatch See Detail Micro: Microbiology 08/16/22 04:54 Blood Culture (Wb) - Anticubital Left Blood Culture - Final No growth in 5 days. 08/16/22 04:37 Blood Culture (Wb) - Anticubital Right Blood Culture - Final No growth in 5 days. 08/16/22 04:30 Sputum, Induced/Lukens Gram Stain - Final 08/16/22 04:30 Sputum, Induced/Lukens Respiratory Culture - Final Serratia marcescens Staphylococcus aureus Streptococcus agalactiae (B) 08/16/22 03:40 Urine Catheter - [place] Urine Culture - Final Culture exhibits no growth. ABG Data ABG results: ABG 08/16/22 06:52 Specimen Type ART Sample Site R Radial pH 7.41 Bicarbonate Actual 22.1 Total CO2 23 Base Excess -3 L O2 Saturation 95 O2 % 40 ABG pCO2 34.6 L ABG pO2 75 Luis Test Positive Respiration Rate 14 O2 Delivery Device Adult Vent Vent Mode AC Tidal Volume 380 POC PEEP 5 Radiography Diagnostic Testing: Radiology Impression KUB X-Ray 08/16/22 04:13 IMPRESSION: 1. Excellent placement of OG tube, tip is in the gastric antrum. 2. No acute abnormality in the abdomen and no other additional findings or changes when compared to 07/30/2022. Electronically Signed: Ryan Garcia MD at 8:36 EDT , Chest X-Ray 08/16/22 04:41 IMPRESSION: Satisfactory ET tube position. Decreased basilar atelectasis. Electronically Signed: Heydi Witt MD at 7:33 EDT , Chest X-Ray 08/16/22 06:32 IMPRESSION: 1. Satisfactory placement of right IJ approach central line catheter, tip is in the distal SVC. 2. No acute cardiopulmonary pathology. 3. Distal repositioning of ET tube, tip is close to the jorje and facing the right mainstem bronchus. 4. OG tube tip and sidehole remain inside the gastric cavity. Electronically Signed: Ryan Garcia MD at 8:35 EDT , Rhythm Strip Rhythm Strip: Sinus Tach Rate: 102 Ectopy: None Physical Exam Const alert and no apparent distress General Appearance: frail HEENT normocephalic and head/scalp atraumatic Eyes PERRL, EOMs intact bilaterally and conjunctivae normal Neck supple General: trachea midline Chest inspection of chest normal Resp normal respiratory effort Auscultation: diminished lung sounds; Negative for rales, rhonchi or wheezes Cardio regular rate and regular rhythm GI normal to inspection, nondistended, normoactive bowel sounds Extremity no clubbing, cyanosis or edema Skin no rashes or lesions noted Neuro no focal motor deficits Psych cooperative and affect normal Charges/Coding Visit Charges Inpatient E&M: 88509 Subs Hosp L2
[2022-08-26] MEDS: Senna/Docusate Sodium 1 Tablet 2 TABLET PO ×2 (09:45→22:19)
[2022-08-26] MEDS: buPROPion 75 MG Tablet 150 MG PO ×2 (09:45→22:19)
[2022-08-26] MEDS: Paroxetine 20 MG Tablet PO (09:45)
[2022-08-26] MEDS: Potassium Chloride Oral Tablet 20 MEQ PO (09:45)
[2022-08-26] MEDS: Ceftriaxone 1 GM/50 ML BAG IV (09:58)
[2022-08-26] MEDS: 0.9% Saline Lock 10 ML Syringe IV ×2 (09:58→14:42)
--- NOTE | 2022-08-26 14:34 | PCM.PN.HOSP ---
Subjective Subjective No issues today. Hemoglobin down slightly to 6.9. 1 unit packed red blood cells pending. Patient denies any acute issues. I informed her that we may be able to get her back to her facility tomorrow if she is stable. She voiced appreciation. Objective Data Objective Data Vital Signs: Vital Signs Temp Pulse Resp BP Pulse Ox O2 Del Method O2 Flow Rate 96.9 F L 94 20 H 128/71 H 94 Nasal Cannula 4 08/26/22 12:00 08/26/22 12:00 08/26/22 12:00 08/26/22 12:00 08/26/22 12:00 08/26/22 12:00 08/26/22 12:00 FiO2 35 08/19/22 07:00 Oxygen Flow Rate (L/min) 4 Oxygen Delivery Method Nasal Cannula Weight: 49.4 kg Body Mass Index (BMI) 20.9 Intake & Output: Intake and Output for Last 24 Hours 08/24/22 08/25/22 08/26/22 23:59 23:59 23:59 Intake Total 793.5 / 913.5 442.5 / 562.5 269.83 / 269.83 Output Total 425 / 425 200 / 200 Balance 368.5 / 488.5 242.5 / 362.5 269.83 / 269.83 Medical Nutrition Assessment Dietitian: Malnutrition Criteria Met Start: 08/23/22 09:28 Freq: Status: Active Protocol: Document 08/26/22 10:41 (Rec: 08/26/22 10:41 [id number]) Nutrition Malnutrition Evidence of Malnutrition Exists Yes Malnutrition (severe): Acute Illness/Injury Evidenced By Suboptimal Energy Intake ( Severe),Physical Changes ( Moderate) Intake Problem Inadequate Oral Intake Etiology related to decreased appetite Signs/Symptoms as evidenced by estimated PO intake meeting <50% of estimated energy needs Status Active Problem Clinical Problem Acute Disease or Injury Related Malnutrition Etiology severe, acute malnutrition related to inadequate energy intake Signs/Symptoms as evidenced by estimated PO intake meeting <50% of estimated energy needs >5 days ; Moderate muscle wasting/fat loss evident per physical exam in orbital, temporal, clavicle, and acromion areas Status Active Problem Swallowing Difficulty Etiology r/t history of stroke, mental status Signs/Symptoms as evidenced by need for modified diet. Status Active Problem Recommendation Dietitian Recommendations/Changes Continue regular diet as tolerated with consistency/ texture as per speech therapy. Will provide ensure plus high protein w/ breakfast and ensure pudding BID w/ lunch and dinner for increased nutrition if consumed. Will add ensure plus high protein 120mL 4x/day w/ medpass. Lab / Micro Data Result Diagrams: 08/26/22 06:10 08/26/22 06:10 Labs: Laboratory Results - last 24 hr 08/26/22 06:10: WBC 12.1 H, RBC 2.70 L, Hgb 6.8 L, Hct 23.0 L, MCV 85.2, MCH 25.2 L, MCHC 29.6 L, RDW Std Deviation 65.7 H, RDW Coeff of Jeanine 21.8 H, Plt Count 353, MPV 9.7, Immature Gran % (Auto) 2.400 H, Neut % (Auto) 75.1 H, Lymph % (Auto) 15.4 L, [place] % (Auto) 6.8, Eos % (Auto) 0.1, Baso % (Auto) 0.2, Absolute Neuts (auto) 9.1 H, Absolute Lymphs (auto) 1.87, Nucleated RBC % 0.2, Hypochromasia 1+, Anisocytosis 2+, Ovalocytes RARE, Acanthocytes (Spur) RARE 08/26/22 06:10: Sodium 146 H, Potassium 3.6, Chloride 115 H, Carbon Dioxide 25.0, Anion Gap 6, BUN 11, Creatinine 0.66, Estim Creat Clear Calc 64.30, Est GFR (MDRD) Af Amer 116, Est GFR (MDRD) Non-Af 96, BUN/Creatinine Ratio 16.6, Glucose 77, Calcium 7.7 L 08/26/22 08:15: Blood Type O POSITIVE, Antibody Screen NEGATIVE, Crossmatch See Detail Micro: Microbiology 08/16/22 04:54 Blood Culture (Wb) - Anticubital Left Blood Culture - Final No growth in 5 days. 08/16/22 04:37 Blood Culture (Wb) - Anticubital Right Blood Culture - Final No growth in 5 days. 08/16/22 04:30 Sputum, Induced/Lukens Gram Stain - Final 08/16/22 04:30 Sputum, Induced/Lukens Respiratory Culture - Final Serratia marcescens Staphylococcus aureus Streptococcus agalactiae (B) 08/16/22 03:40 Urine Catheter - [place] Urine Culture - Final Culture exhibits no growth. Rhythm Strip Rhythm Strip: Sinus Tach Rate: 102 Ectopy: None Physical Exam Const alert and no apparent distress Constitutional Narrative: Thin, older female sitting up in bed watching television, appears comfortable and nontoxic, appears to have some memory issues at baseline, thin HEENT head/scalp atraumatic and moist oral mucous membranes HEENT Narrative: Temporal wasting, dentition is poor, no thrush Head and Scalp: normocephalic Resp normal respiratory effort, no retractions and no use of accessory muscles Resp Narrative: Diminished but clear, currently on 4 L nasal cannula Cardio regular rate, regular rhythm, S1 normal heart sound, S2 normal heart sound, no murmurs, no rub, no gallops and no clicks GI normal to inspection, nondistended, normoactive bowel sounds, soft to palpation and non-tender Extremity no clubbing, cyanosis or edema Extremity Narrative: Markedly decreased lean muscle mass Neuro moves all extremities and no focal motor deficits Neuro Narrative: Flexion contractures left upper and lower extremity upper worse than lower Assessment & Plan Assessment/Plan (1) Severe malnutrition: (2) Acute GI bleeding: (3) Anemia: QUALIFIERS: Anemia type: unspecified type Qualified Code(s): D64.9 - Anemia, unspecified (4) Pneumonia: (5) Hypoxia: (6) Leukocytosis: (7) Hypernatremia: (8) Hypokalemia: PLAN: Plan Pneumonia with acute hypoxia -Polymicrobial and suspected related to aspiration event -Culture shows Serratia/MSSA/group B strep -Patient has completed a full 7-day course of antibiotics--> will discontinue ceftriaxone at this time -Suspect some of her hypoxia is chronic related to COPD -Continue supplemental oxygen and wean as able -Continue pulmonary toilet -Continue I-S -Leukocytosis is improving Hypernatremia -Appears to be stable with no elevation -Likely related to decreased p.o. intake with recent scopes -Continue to monitor now that on a regular diet -Elevation is not severe Hypokalemia -Resolved -Continue to monitor as patient is on chronic supplemental potassium Upper GI bleed -EGD done in July 2020 showed grade 3 erosive esophagitis with gastritis and hemorrhage in the hiatal hernia -Follow-up EGD was recommended at that time and patient did not follow-up -CT of the chest previously had showed a thick-walled fluid-filled esophagus -EGD performed on 08/25/2022 showed grade D esophagitis with bleeding as well as mucosal changes including ringed esophagus, longitudinal furrows, small caliber esophagus and white plaques in the middle third of the esophagus -Dilation was performed with improved luminal narrowing -Biopsies taken -Eosinophilic esophagitis suspected -Modified diet reinitiated -Protonix bolus and drip to continue over the next 24 hours -No need twice daily PPI indefinitely at discharge -Continue Carafate Acute on chronic anemia -Patient transfused for hemoglobin of 6 on presentation and then had stabilized but then dropped again -Scope was pursued with recurrent drop as patient had no obvious bleeding -Globin down to 6.8 this morning from 7.3 yesterday -1 unit packed red blood cells transfused on 08/26/2022 -Repeat hemoglobin in a.m. and is stable will discharge Dysphagia -Patient with history of stroke -Speech-language pathology is following -MBS performed and showed mild to moderate oropharyngeal phase dysphagia -Recommended diet with pur?e with nectar thick liquids and ongoing therapy Severe malnutrition -Diet as above -Supplements ordered -Dietitian is following Suspected COPD -Will need pulmonary out patient follow-up as well as PFTs -Anticipate patient will need supplemental oxygen at discharge -Continue pulmonary toilet -Arrange for pulmonary follow-up prior to discharge Hemorrhagic shock/relative adrenal insufficiency -Resolved Hypertension -Patient does not appear to take any antihypertensive at baseline next-continue to monitor blood pressure Hyperlipidemia -Restart statin at discharge Vitamin D deficiency -Continue home ergocalciferol discharge Depression/anxiety -Continue home Wellbutrin -Continue home doxepin -Continue home Paxil next History of stroke -Aspirin on hold secondary to the above -Will restart when okay per GI Tobacco abuse -Recommend tobacco cessation DVT prophylaxis -SCDs -Chemoprophylaxis contraindicated with bleeding CODE STATUS From full code Charges/Coding Visit Charges Inpatient E&M: 84859 Subs Hosp L2
--- NOTE | 2022-08-26 15:23 | PCM.PROGNOTE ---
Subjective Subjective Patient underwent an upper endoscopy yesterday. She is not having any abdominal pain at this time. She states she wants to go back to her home. She denies any nausea. She denies any vomiting. She did have a slight decrease in hemoglobin overnight and her hemoglobin this morning 6.8. Objective Data Objective Data Vital Signs: Vital Signs Temp Pulse Resp BP Pulse Ox O2 Del Method O2 Flow Rate 96.9 F L 100 25 H 120/76 96 Nasal Cannula 4 08/26/22 14:00 08/26/22 15:00 08/26/22 14:00 08/26/22 14:00 08/26/22 14:00 08/26/22 14:00 08/26/22 14:00 FiO2 35 08/19/22 07:00 Oxygen Flow Rate (L/min) 4 Oxygen Delivery Method Nasal Cannula Weight: 108 lb 14.534 oz Body Mass Index (BMI) 20.9 Intake & Output: Intake and Output for Last 24 Hours 08/24/22 08/25/22 08/26/22 23:59 23:59 23:59 Intake Total 793.5 / 913.5 442.5 / 562.5 769.83 / 769.83 Output Total 425 / 425 200 / 200 Balance 368.5 / 488.5 242.5 / 362.5 769.83 / 769.83 Medical Nutrition Assessment Dietitian: Malnutrition Criteria Met Start: 08/23/22 09:28 Freq: Status: Active Protocol: Document 08/26/22 10:41 AG (Rec: 08/26/22 10:41 [id number]) Nutrition Malnutrition Evidence of Malnutrition Exists Yes Malnutrition (severe): Acute Illness/Injury Evidenced By Suboptimal Energy Intake ( Severe),Physical Changes ( Moderate) Intake Problem Inadequate Oral Intake Etiology related to decreased appetite Signs/Symptoms as evidenced by estimated PO intake meeting <50% of estimated energy needs Status Active Problem Clinical Problem Acute Disease or Injury Related Malnutrition Etiology severe, acute malnutrition related to inadequate energy intake Signs/Symptoms as evidenced by estimated PO intake meeting <50% of estimated energy needs >5 days ; Moderate muscle wasting/fat loss evident per physical exam in orbital, temporal, clavicle, and acromion areas Status Active Problem Swallowing Difficulty Etiology r/t history of stroke, mental status Signs/Symptoms as evidenced by need for modified diet. Status Active Problem Recommendation Dietitian Recommendations/Changes Continue regular diet as tolerated with consistency/ texture as per speech therapy. Will provide ensure plus high protein w/ breakfast and ensure pudding BID w/ lunch and dinner for increased nutrition if consumed. Will add ensure plus high protein 120mL 4x/day w/ medpass. Lab / Micro Data Result Diagrams: 08/26/22 06:10 08/26/22 06:10 Labs: Laboratory Results - last 24 hr 08/26/22 06:10: WBC 12.1 H, RBC 2.70 L, Hgb 6.8 L, Hct 23.0 L, MCV 85.2, MCH 25.2 L, MCHC 29.6 L, RDW Std Deviation 65.7 H, RDW Coeff of Jeanine 21.8 H, Plt Count 353, MPV 9.7, Immature Gran % (Auto) 2.400 H, Neut % (Auto) 75.1 H, Lymph % (Auto) 15.4 L, [place] % (Auto) 6.8, Eos % (Auto) 0.1, Baso % (Auto) 0.2, Absolute Neuts (auto) 9.1 H, Absolute Lymphs (auto) 1.87, Nucleated RBC % 0.2, Hypochromasia 1+, Anisocytosis 2+, Ovalocytes RARE, Acanthocytes (Spur) RARE 08/26/22 06:10: Sodium 146 H, Potassium 3.6, Chloride 115 H, Carbon Dioxide 25.0, Anion Gap 6, BUN 11, Creatinine 0.66, Estim Creat Clear Calc 64.30, Est GFR (MDRD) Af Amer 116, Est GFR (MDRD) Non-Af 96, BUN/Creatinine Ratio 16.6, Glucose 77, Calcium 7.7 L 08/26/22 08:15: Blood Type O POSITIVE, Antibody Screen NEGATIVE, Crossmatch See Detail Micro: Microbiology 08/16/22 04:54 Blood Culture (Wb) - Anticubital Left Blood Culture - Final No growth in 5 days. 08/16/22 04:37 Blood Culture (Wb) - Anticubital Right Blood Culture - Final No growth in 5 days. 08/16/22 04:30 Sputum, Induced/Lukens Gram Stain - Final 08/16/22 04:30 Sputum, Induced/Lukens Respiratory Culture - Final Serratia marcescens Staphylococcus aureus Streptococcus agalactiae (B) 10/09/22 03:40 Urine Catheter - [place] Urine Culture - Final Culture exhibits no growth. Rhythm Strip Rhythm Strip: Sinus Tach Rate: 102 Ectopy: None Physical Exam Const alert and no apparent distress Constitutional Narrative: Thin, older female HEENT head/scalp atraumatic and moist oral mucous membranes HEENT Narrative: Temporal wasting, dentition is poor, no thrush Head and Scalp: normocephalic Resp normal respiratory effort, no retractions and no use of accessory muscles Resp Narrative: Diminished but clear, currently on 4 L nasal cannula Cardio regular rate, regular rhythm, S1 normal heart sound, S2 normal heart sound, no murmurs, no rub, no gallops and no clicks GI normal to inspection, nondistended, normoactive bowel sounds, soft to palpation and non-tender Extremity no clubbing, cyanosis or edema Extremity Narrative: Markedly decreased lean muscle mass Neuro moves all extremities and no focal motor deficits Neuro Narrative: Flexion contractures left upper and lower extremity upper worse than lower Assessment & Plan Assessment/Plan (1) Acute GI bleeding: PLAN: Acute GI bleeding upper GI tract status post endoscopic treatment. She is receiving 1 unit of packed red blood cells at this time. I would not put her through a colonoscopy at this time due to her severe disabilities and the very difficulty it would be to prep her. Recommend to keep her hematocrit greater than 35%. I will put her on iron with a specific bowel regimen. She can get a capsule as an outpatient. She is okay with that plan. The etiology of her bleeding is distal esophagus and midesophagus thought to be secondary to eosinophilic esophagitis. She did undergo esophageal dilation and biopsies were taken to confirm this diagnosis. For now she will need to stay on PPI 40 mg p.o. twice daily. She does not have to take Carafate therapy because she is already dealing with constipation. I would not restart any antiplatelets or anticoagulation until her hemoglobin is stable.
[2022-08-26] MEDS: Acetaminophen 325 MG Tablet 650 MG PO (20:24)
[2022-08-26] MEDS: Atorvastatin Calcium 40 MG Tablet PO (22:18)
[2022-08-26] MEDS: DOXEPIN HCL 50 MG CAPSULE 100 MG PO (22:19)
[2022-08-27] VITALS (14 sets, daily range): BP systolic 100–131; BP diastolic 61–108; PULSE 85–102; RESP 16–24; TEMP 36.4–36.7; O2SAT 93–95
--- NOTE | 2022-08-27 04:40 | NURSING ---
Pt PIV on left wrist was infiltrated but pt has been refusing this RN to remove the IV. Pt was agitated and wouldn't let this RN connect her IV protonix through her central line. This RN explained to pt the importance of the medication and why the IV needs to be taken out. colorer machine talked to pt as well and educated pt. Pt let charge hand remove infiltrated IV, but still refusing to get IV protonix on her central line and refusing lab draws this morning. notified.
[2022-08-27 05:57] LABS: Absolute Lymphocyte Count 2.72 X10^3/uL (0.83-4.51); Absolute Neutrophil Count 10.3 X10^3/uL (2.0-7.7); Basophil# 0.02 X10^3/uL; Basophil% 0.1 % (0-1); Eosinophil# 0.47 X10^3/uL; Eosinophils% 3.2 % (0-5); Hematocrit 29.7 % (37-47); Hemoglobin 9.7 g/dL (12.0-15.0); Lymphocyte # 2.72 X10^3/ul (0.83-4.51); Lymphocyte % 18.4 % (19-41); Mean Corp Hgb Conc 32.7 g/dL (32-36); Mean Corpuscular Hgb 27.6 pg (27.0-32.0); Mean Corpuscular Volume 84.4 fL (81-99); Mean Platelet Vol. 9.5 fl (6.2-12.0); Monocyte# 1.06 X10^3/uL; Monocyte% 7.2 % (0-10); NRBC Flagged by Analyzer 0.1 % (0-5); Neutrophil # 10.29 X10^3/uL (2.7-7.7); Neutrophil % 69.7 % (47-70); Platelet Count 353 K/mm3 (150-450); RBC Distribution Width CV 19.8 % (11.6-14.6); RBC Distribution Width SD 58.8 fl (35.1-43.9); Red Blood Count 3.52 M/mm3 (4.2-5.4); White Blood Count 14.8 K/mm3 (4.4-11.0)
[2022-08-27 06:29] LABS: Anion Gap 5 (5-15); BUN 9 mg/dL (7-18); BUN/Creat Ratio 13.2 RATIO (10-20); Calcium,Total 7.6 mg/dL (8.5-10.1); Chloride 114 mmol/L (98-107); Creatinine, Serum 0.68 mg/dL (0.55-1.02); EST Glomerular Filtration Rate 93 mL/min (>60); Est Glom Filt Rate - Afr Amer 113 mL/min (>60); Glucose 67 mg/dL (74-106); Potassium 3.4 mmol/L (3.5-5.1); Sodium Level 144 mmol/L (136-145)
[2022-08-27 06:42] LABS: Phosphorus 2.9 mg/dL (2.5-4.9)
[2022-08-27] MEDS: Ipratropium/Albuterol Sulfate 3 ML AMPUL.NEB INHALATION ×2 (07:06→13:36)
--- NOTE | 2022-08-27 07:56 | PN.CC_ITS ---
Assessment & Plan Assessment/Plan (1) Acute GI bleeding: PLAN: Plan RECOMMENDATIONS: 1. Wean supplemental oxygen as tolerated. 2. Continue PPI therapy. 3. Encourage incentive spirometer use and mobilize patient as tolerated. 4. Continue to monitor H&H daily and transfuse if hemoglobin is below 7 g/dL. IMPRESSIONS: 1.??Acute hypoxemic respiratory failure The patient was ultimately intubated after she became unresponsive and e xperienced an emesis event with immediate concern for aspiration. The patient grew Serratia and staph from her sputum.? However, she completed a treatment course of antimicrobials. Chest x-ray continues to show some basilar atelectasis.? Encourage incentive spirometer.? Continue to wean supplemental oxygen as tolerated to maintain saturations at or above 90%. 2.??Acute blood loss anemia with hemorrhagic shock/relative adrenal insufficiency The patient presented with abdominal pain and hematemesis and required transfusion of blood products due to worsening anemia.? Plan to continue to monitor serial H&H and transfuse if hemoglobin drops below 7 g/dL.? Continue Protonix as ordered.? EGD revealed evidence of erosive esophagitis and moderate hiatal hernia. 3.??History of CVA/hypertension/anxiety/depression/questionable COPD/hypothyroidism/tobacco dependency Complicates care, management, recovery and prognosis.? Continue bronchodilators as ordered. This note was generated with [employer] dictation software. It may contain incorrect words, spelling, and punctuation that were not noted in checking the note before signing. Subjective Subjective The patient was seen and examined at the bedside this morning. Events from the last 24 hours have been reviewed. The patient is currently afebrile, hemodynamically stable and maintaining appropriate oxygen saturations on 6 L/min. The patient was transfused 1 unit of packed red blood cells yesterday. Hemoglobin this morning is improved to 9.7 g/dL. The patient did receive a one- time dose of IV Lasix this morning. Objective Data Objective Data The patient's most recent lab work, culture data and imaging studies have all been personally reviewed. Surface echocardiogram demonstrated normal LV size and function with an ejection fraction of 65%. Sputum culture was positive for Serratia and staph aureus. Vital Signs: Vital Signs Temp Pulse Resp BP Pulse Ox O2 Del Method O2 Flow Rate 97.5 F L 102 H 16 125/71 H 95 High Flow 6 08/27/22 07:52 10/20/22 07:52 08/27/22 07:52 08/27/22 07:52 08/27/22 07:52 08/27/22 07:52 08/27/22 07:52 FiO2 35 08/19/22 07:00 Oxygen Flow Rate (L/min) 6 Oxygen Delivery Method High Flow Weight: 107 lb 12.897 oz Body Mass Index (BMI) 20.9 Intake & Output: Intake and Output for Last 24 Hours 08/25/22 08/26/22 08/27/22 23:59 23:59 23:59 Intake Total 442.5 / 562.5 769.83 / 849.83 218.17 / 218.17 Output Total 200 / 200 Balance 242.5 / 362.5 769.83 / 849.83 218.17 / 218.17 Medical Nutrition Assessment Dietitian: Malnutrition Criteria Met Start: 08/23/22 09:28 Freq: Status: Active Protocol: Document 08/26/22 10:41 AG (Rec: 08/26/22 10:41 AG [id number]) Nutrition Malnutrition Evidence of Malnutrition Exists Yes Malnutrition (severe): Acute Illness/Injury Evidenced By Suboptimal Energy Intake ( Severe),Physical Changes ( Moderate) Intake Problem Inadequate Oral Intake Etiology related to decreased appetite Signs/Symptoms as evidenced by estimated PO intake meeting <50% of estimated energy needs Status Active Problem Clinical Problem Acute Disease or Injury Related Malnutrition Etiology severe, acute malnutrition related to inadequate energy intake Signs/Symptoms as evidenced by estimated PO intake meeting <50% of estimated energy needs >5 days ; Moderate muscle wasting/fat loss evident per physical exam in orbital, temporal, clavicle, and acromion areas Status Active Problem Swallowing Difficulty Etiology r/t history of stroke, mental status Signs/Symptoms as evidenced by need for modified diet. Status Active Problem Recommendation Dietitian Recommendations/Changes Continue regular diet as tolerated with consistency/ texture as per speech therapy. Will provide ensure plus high protein w/ breakfast and ensure pudding BID w/ lunch and dinner for increased nutrition if consumed. Will add ensure plus high protein 120mL 4x/day w/ medpass. Lab / Micro Data Attestation: I reviewed the patient's lab results. Result Diagrams: 08/27/22 05:47 08/27/22 05:47 Labs: Laboratory Results - last 24 hr 08/26/22 08:15: Blood Type O POSITIVE, Antibody Screen NEGATIVE, Crossmatch See Detail 08/27/22 05:47: WBC 14.8 H, RBC 3.52 L, Hgb 9.7 L, Hct 29.7 L, MCV 84.4, MCH 27.6, MCHC 32.7 D, RDW Std Deviation 58.8 H, RDW Coeff of Jeanine 19.8 H, Plt Count 353, MPV 9.5, Immature Gran % (Auto) 1.400 H, Neut % (Auto) 69.7, Lymph % (Auto) 18.4 L, [place] % (Auto) 7.2, Eos % (Auto) 3.2, Baso % (Auto) 0.1, Absolute Neuts (auto) 10.3 H, Absolute Lymphs (auto) 2.72, Nucleated RBC % 0.1 08/27/22 05:47: Sodium 144, Potassium 3.4 L, Chloride 114 H, Carbon Dioxide 25.0, Anion Gap 5, BUN 9, Creatinine 0.68, Estim Creat Clear Calc 62.40, Est GFR (MDRD) Af Amer 113, Est GFR (MDRD) Non-Af 93, BUN/Creatinine Ratio 13.2, Glucose 67 L, Calcium 7.6 L, Magnesium 2.0 08/27/22 05:47: Phosphorus 2.9 Micro: Microbiology 08/16/22 04:54 Blood Culture (Wb) - Anticubital Left Blood Culture - Final No growth in 5 days. 08/16/22 04:37 Blood Culture (Wb) - Anticubital Right Blood Culture - Final No growth in 5 days. 08/16/22 04:30 Sputum, Induced/Lukens Gram Stain - Final 08/16/22 04:30 Sputum, Induced/Lukens Respiratory Culture - Final Serratia marcescens Staphylococcus aureus Streptococcus agalactiae (B) 08/16/22 03:40 Urine Catheter - [place] Urine Culture - Final Culture exhibits no growth. ABG Data ABG results: ABG 08/16/22 06:52 Specimen Type ART Sample Site R Radial pH 7.41 Bicarbonate Actual 22.1 Total CO2 23 Base Excess -3 L O2 Saturation 95 O2 % 40 ABG pCO2 34.6 L ABG pO2 75 Luis Test Positive Respiration Rate 14 O2 Delivery Device Adult Vent Vent Mode AC Tidal Volume 380 POC PEEP 5 Radiography Diagnostic Testing: Radiology Impression KUB X-Ray 08/16/22 04:13 IMPRESSION: 1. Excellent placement of OG tube, tip is in the gastric antrum. 2. No acute abnormality in the abdomen and no other additional findings or changes when compared to 07/30/2022. Electronically Signed: Ryan Garcia MD at 8:36 EDT , Chest X-Ray 08/16/22 04:41 IMPRESSION: Satisfactory ET tube position. Decreased basilar atelectasis. Electronically Signed: Heydi Witt MD at 7:33 EDT , Chest X-Ray 08/16/22 06:32 IMPRESSION: 1. Satisfactory placement of right IJ approach central line catheter, tip is in the distal SVC. 2. No acute cardiopulmonary pathology. 3. Distal repositioning of ET tube, tip is close to the jorje and facing the right mainstem bronchus. 4. OG tube tip and sidehole remain inside the gastric cavity. Electronically Signed: Ryan Gracia MD at 8:35 EDT , Rhythm Strip Rhythm Strip: Sinus Tach Rate: 102 Ectopy: None Physical Exam Const alert and no apparent distress General Appearance: frail HEENT normocephalic and head/scalp atraumatic Eyes PERRL, EOMs intact bilaterally and conjunctivae normal Neck supple General: trachea midline Chest inspection of chest normal Resp normal respiratory effort Auscultation: diminished lung sounds; Negative for rales, rhonchi or wheezes Cardio regular rate and regular rhythm GI normal to inspection, nondistended, normoactive bowel sounds Extremity no clubbing, cyanosis or edema Skin no rashes or lesions noted Neuro no focal motor deficits Psych cooperative and affect normal Charges/Coding Visit Charges Inpatient E&M: 80834 Subs Hosp L2
[2022-08-27] MEDS: Potassium Chloride Oral Soln 20 MEQ/15 ML UDC 40 MEQ PO (08:02)
[2022-08-27] MEDS: Midodrine HCl 5 MG Tablet 10 MG PO ×2 (08:03→11:30)
[2022-08-27] MEDS: Furosemide 40 MG/4 ML Vial IV (08:03)
--- NOTE | 2022-08-27 09:07 | RAD_ITS ---
STUDY: X-RAY CHEST REASON FOR EXAM: Female, 62 years old. hypoxia TECHNIQUE: Single AP portable view of the chest. COMPARISON: 08/21/2022 FINDINGS: Right jugular deep venous line which is unchanged. Poor inspiration with some bibasilar atelectasis but improved when compared with the prior study. There is no demonstrated pleural abnormality. Normal size heart. Normal mediastinum and luc. Normal visualized pulmonary arteries. Normal visualized aortic arch and descending thoracic aorta. Normal visualized thoracic spine. Normal visualized ribs, clavicles, and shoulders. There is no demonstrated abnormality of the visualized soft tissue structures of the upper abdomen. RAD/Chest 1 View (Portable) IMPRESSION: Improvement in bibasilar atelectasis Electronically Signed: Yayo Bingham MD at 9:25 EDT ,
[2022-08-27] MEDS: Senna/Docusate Sodium 1 Tablet 2 TABLET PO (09:52)
[2022-08-27] MEDS: Paroxetine 20 MG Tablet PO (09:52)
[2022-08-27] MEDS: Potassium Chloride Oral Tablet 20 MEQ PO (09:52)
[2022-08-27] MEDS: buPROPion 75 MG Tablet 150 MG PO (09:52)
[2022-08-27] MEDS: Pantoprazole Sodium 40 MG Tablet PO (09:53)
--- NOTE | 2022-08-27 10:04 | CASEMGMT ---
Patient does not have a Healthcare Power of Rink Rat or Healthcare Living Will. Mariann Cosby [employer]
--- NOTE | 2022-08-27 13:28 | PCM.DC.SUM ---
Providers Date of Admission: 08/15/22 Date of Discharge: 08/27/22 Primary Care Physician: Dr. Zachary Vargas MD Consultations 08/15/22 20:42 Consult: Gastroenterology Routine Consulting Provider: [facility] Reason for Consult: Epigastric pain/N/V, dark blood w/ emesis, Hx PUD EMERGENT Consult: No MD Notified: Yes Date Notified: 08/15/22 Time Notified: 20:19 Method of Notification: Text 08/16/22 01:27 Consult: Chief Librarian Circulation Department / Pulmonary Medicine Routine Consulting Provider: Eulalio Ko Reason for Consult: ABLA EMERGENT Consult: No MD Notified: Yes Date Notified: 08/16/22 Time Notified: 00:31 Method of Notification: Text Reason For Visit: N/V, EPIGASTRIC PAIN, HEMATEMISIS Diagnosis Discharge Diagnosis (1) Acute GI bleeding: Status: Acute Code(s): K92.2 - Gastrointestinal hemorrhage, unspecified Medications at Discharge Home Medications atorvastatin 40 mg tablet 40 mg PO DAILY cholesterol 12/26/18 doxepin 100 mg capsule 100 mg PO QHS depression 12/10/19 paroxetine HCl 20 mg tablet 20 mg PO DAILY depression 12/10/19 bupropion HCl (smoking deter) 150 mg tablet,12 hr sustained-release(smoking deterrent) 150 mg PO BID depression 05/20/20 ergocalciferol (vitamin D2) 1,250 mcg (50,000 unit) capsule 50,000 units PO QMONTH supplement 05/20/20 melatonin 10 mg tablet,extended release,multiphase 10 mg PO QHS sleep 05/20/20 famotidine 40 mg tablet 40 mg PO DAILY gerd 07/22/20 nicotine 7 mg/24 hr daily transdermal patch 7 mg TP DAILY smoking 07/22/20 acetaminophen 500 mg tablet 2 tab PO TID PRN Pain Or Fever #1 TAB 07/26/20 aspirin 81 mg tablet,delayed release 81 mg PO BID health maintenance ##0 07/26/20 potassium chloride 20 mEq oral packet (Klor-Con) 20 meq PO DAILY 03/06/22 oxycodone-acetaminophen 5 mg-325 mg tablet (Percocet) 1 tab PO Q6H PRN pain 3 days #12 tabs 05/30/22 food supplemt, lactose-reduced 0.08 gram-1.5 kcal/mL oral liquid (Ensure Plus High Protein) 120 ml PO 4X/DAY #237 mL 08/27/22 ipratropium 0.5 mg-albuterol 3 mg (2.5 mg base)/3 mL nebulization soln 3 ml inhalation Q6HWA.RT #0 mL 08/27/22 pantoprazole 40 mg tablet,delayed release (Protonix) 40 mg PO BID #60 tabs 08/27/22 Hospital Course Procedures 2-D Echocardiogram, EGD, EKG and Intubation Summary of Care Provided Minutes Spent on Discharge: 39 Hospital Course: Mrs. Watt is a 62-year-old white female who presented to the emergency department at [facility] on 08/15/2022 with a chief complaint of epigastric pain, nausea and vomiting with coffee-ground emesis. She reported on presentation that she had a history of mild aching and dull throbbing epigastric pain that had been worsening with bouts of emesis and decreased ability to for oral intake that had progressively been worsening over the 3 days prior to presentation. She reported dark old blood in her emesis and rated her epigastric pain at 7 out of 10. She had a similar emesis in the emergency department and did have dark red blood coating her lips and face on presentation. ? Work-up in the ED included T 97, HR 114, BP initially 80/56 with most recent repeat 102/64, RR 18, 96% on RA, CBC w/ WBC 21.2, Hgb 7.7, MCV 77.8, Plts 657 with L shift, coags unremarkable, CMP w/ Nx 3.3, BUN/Cr 23/0.97, glucose 122, alk phos 141, and a llipase of 70. CT of the abdomen pelvis was done on presentation and showed a thick-walled fluid-filled distal esophagus and hiatal hernia that was not noted on previous CT dated 05/20/2022, a right renal cysts, increased feces suggesting constipation, remote compression deformity of T10 and a left hip replacement. In the emergency department she was administered IV PPI, Zofran and given IV fluids. She was initially admitted to telemetry however overnight she developed agitation and a fever and was given IV Ativan and ultimately became less responsive and had an episode of emesis at which time there was concern for acute aspiration. This unfortunately led to respiratory decompensation and the need for intubation which was performed early on the a.m. of 08/16/2022. She was transferred to the medical ICU and became hypotensive at which time she required the initiation of Levophed and a central venous catheter was placed in her right internal jugular vein. Her hemoglobin dropped to 6.0 and she received 2 units of packed red blood cells. She was evaluated by gastroenterology later that day and was maintained on a Protonix drip as well as octreotide and an EGD was recommended when she was more hemodynamically stable. Cultures were obtained upon transfer and she was ultimately found to have a polymicrobial pneumonia with Serratia, MSSA, and group B strep. She was maintained on IV antibiotics for a full 7-day treatment at which time IV antibiotics were discontinued. She was able to be extubated on 08/19/2022 and midodrine was initiated for hypotension. Serum cortisol was performed and found to be normal however it was felt that she may be relatively adrenally insufficient and she was started on stress dose steroids. As she was weaned off Levophed and her blood pressure stabilized this was discontinued. An echocardiogram was performed on 08/21/2022 and demonstrated an ejection fraction of 65% and a trivial pericardial effusion. Given her stabilization an EGD was able to be performed on 08/25/2022 at which time grade D esophagitis with bleeding was noted. Biopsies were taken. Mucosal changes including ringed esophagus, longitudinal furrows, small caliber esophagus, and white plaques were noted in the middle third of the esophagus as well as the lower third of the esophagus. Biopsies were taken at this at area as well. She was also found to have stenosis of the distal esophagus for which a TTS dilator was passed and esophagus was dilated to 16 mm. Reexamination of the area following dilation showed improvement of the luminal narrowing and no signs of bleeding. A medium hiatal hernia was also found. Given the above findings she was maintained on a Protonix drip and the appearance seem to be consistent with eosinophilic esophagitis. Biopsies demonstrated pathology consistent with extensive ulceration and acute on chronic inflammation with granulation tissue reaction. These were of the biopsies of the distal esophagus. She required transfusion of 1 unit packed red blood cells on 08/26/2022 for hemoglobin of 6.8. Repeat hemoglobin on a.m. of 08-27 was 9.7 and she therefore overcorrected. She had intermittent electrolyte abnormalities which were replaced. Her potassium on the day of discharge was 3.4 and she was given 40 mill equivalents of p.o. potassium prior to discharge. She did require oxygen throughout her entire hospital course and I suspect she likely is hypoxic at baseline given her marked tobacco abuse history. She was requiring 4 to 6 L of oxygen. I discussed the case with pulmonary medicine and they do suspect she likely has chronic hypoxia and hypercapnia related to her COPD. She will need outpatient pulmonary follow-up after discharge and was maintained on bronchodilators at discharge. With the stability in her respiratory status and her hemoglobin she was cleared for discharge on 08/27/2022. She was markedly debilitated and required skilled facility for ongoing rehab services at the time of discharge. She was discharged to a SNF on 08/27/2022. She is to follow-up with her primary care physician within the next month. She is to follow-up with gastroenterology within the next 2 weeks. She is to follow-up with pulmonary medicine within the next 4 to 6 weeks. New medications at the time of discharge were Protonix 40 mg p.o. twice daily and this is to be continued indefinitely. She was also evaluated by the dietitian during her hospital course and met criteria for severe malnutrition was therefore discharged with Ensure supplementation which is to continue. Her appearance is quite frail and she is markedly debilitated and high risk for readmission. We do recommend a repeat CBC and BMP within 1 week and if her hemoglobin is stable her aspirin 81 mg daily may be reinitiated. Discharge diagnoses: Polymicrobial pneumonia-treatment completed Hypoxemia-suspected chronic Hypernatremia-resolved Hypokalemia Upper GI bleed secondary to erosive esophagitis Suspected eosinophilic esophagitis Esophageal stricture Acute on chronic anemia Dysphagia Severe malnutrition Suspected COPD Hemorrhagic shock-resolved Relative adrenal insufficiency-resolved Hypertension Hyperlipidemia Vitamin D deficiency Depression Anxiety History of stroke Tobacco abuse Severe debility Physical Exam Narrative No issues overnight, patient reports she is feeling well overall. Tolerating p.o. intake without difficulties. Remains on supplemental oxygen. Const alert and no apparent distress Constitutional Narrative: Thin, older female sitting up in bed watching television and feeding herself breakfast, aide at bedside assisting, appears comfortable and nontoxic, appears to have some memory issues at baseline, thin General Appearance: cooperative and comfortable Orientation / Consciousness: awake, oriented to person and oriented to place Exam Limitations: other limitations Nutritional Appearance: thin HEENT normocephalic, head/scalp atraumatic and moist oral mucous membranes HEENT Narrative: Temporal wasting bilaterally, mild hearing loss, dentition is poor, Mallampati is 2, no thrush Eyes PERRL and EOMs intact bilaterally; Negative for conjunctivae normal Eyes Narrative: Mild conjunctival pallor, no scleral icterus Neck no lymphadenopathy and supple Neck Narrative: Trachea midline, no thyroid enlargement Resp normal respiratory effort, no retractions and no use of accessory muscles Resp Narrative: Markedly diminished diffusely but clear, currently on 4-6 L nasal cannula Cardio regular rate, regular rhythm, S1 normal heart sound, S2 normal heart sound, no murmurs, no rub, no gallops and no clicks GI normal to inspection, nondistended, normoactive bowel sounds, soft to palpation and non-tender Extremity no clubbing, cyanosis or edema Extremity Narrative: Markedly decreased lean muscle mass Skin no wounds, skin turgor normal and no jaundice Skin Narrative: Pale, thin skin, scattered ecchymosis, no significant wounds Neuro moves all extremities and no focal motor deficits Neuro Narrative: Flexion contractures left upper and lower extremity upper worse than lower, speech is at baseline Psych affect normal Psych Narrative: Very pleasant, seems intermittently impulsive Medical Records Data Medical Nutrition Assessment Dietitian: Malnutrition Criteria Met Start: 08/23/22 09:28 Freq: Status: Active Protocol: Document 08/26/22 10:41 (Rec: 08/26/22 10:41 [id number]) Nutrition Malnutrition Evidence of Malnutrition Exists Yes Malnutrition (severe): Acute Illness/Injury Evidenced By Suboptimal Energy Intake ( Severe),Physical Changes ( Moderate) Intake Problem Inadequate Oral Intake Etiology related to decreased appetite Signs/Symptoms as evidenced by estimated PO intake meeting <50% of estimated energy needs Status Active Problem Clinical Problem Acute Disease or Injury Related Malnutrition Etiology severe, acute malnutrition related to inadequate energy intake Signs/Symptoms as evidenced by estimated PO intake meeting <50% of estimated energy needs >5 days ; Moderate muscle wasting/fat loss evident per physical exam in orbital, temporal, clavicle, and acromion areas Status Active Problem Swallowing Difficulty Etiology r/t history of stroke, mental status Signs/Symptoms as evidenced by need for modified diet. Status Active Problem Recommendation Dietitian Recommendations/Changes Continue regular diet as tolerated with consistency/ texture as per speech therapy. Will provide ensure plus high protein w/ breakfast and ensure pudding BID w/ lunch and dinner for increased nutrition if consumed. Will add ensure plus high protein 120mL 4x/day w/ medpass. Weight / BMI Weight Weight: 48.9 kg Body Mass Index (BMI) 20.9 ABG / Lab / Microbiology Data Result Diagrams: 08/27/22 05:47 08/27/22 05:47 Laboratory: Laboratory Results - last 24 hr 08/26/22 08:15: Crossmatch See Detail 08/27/22 05:47: WBC 14.8 H, RBC 3.52 L, Hgb 9.7 L, Hct 29.7 L, MCV 84.4, MCH 27.6, MCHC 32.7 D, RDW Std Deviation 58.8 H, RDW Coeff of Jeanine 19.8 H, Plt Count 353, MPV 9.5, Immature Gran % (Auto) 1.400 H, Neut % (Auto) 69.7, Lymph % (Auto) 18.4 L, Giles % (Auto) 7.2, Eos % (Auto) 3.2, Baso % (Auto) 0.1, Absolute Neuts (auto) 10.3 H, Absolute Lymphs (auto) 2.72, Nucleated RBC % 0.1 08/27/22 05:47: Sodium 144, Potassium 3.4 L, Chloride 114 H, Carbon Dioxide 25.0, Anion Gap 5, BUN 9, Creatinine 0.68, Estim Creat Clear Calc 62.40, Est GFR (MDRD) Af Amer 113, Est GFR (MDRD) Non-Af 93, BUN/Creatinine Ratio 13.2, Glucose 67 L, Calcium 7.6 L, Magnesium 2.0 08/27/22 05:47: Phosphorus 2.9 Microbiology: Microbiology 08/16/22 04:54 Blood Culture (Wb) - Anticubital Left Blood Culture - Final No growth in 5 days. 08/16/22 04:37 Blood Culture (Wb) - Anticubital Right Blood Culture - Final No growth in 5 days. 08/16/22 04:30 Sputum, Induced/Lukens Gram Stain - Final 08/16/22 04:30 Sputum, Induced/Lukens Respiratory Culture - Final Serratia marcescens Staphylococcus aureus Streptococcus agalactiae (B) 08/16/22 03:40 Urine Catheter - [place] Urine Culture - Final Culture exhibits no growth. Radiography Diagnostic Testing: Radiology Impression Chest X-Ray 08/27/22 09:07 IMPRESSION: Improvement in bibasilar atelectasis Electronically Signed: Yayo Bingham MD at 9:25 EDT , Meaningful Use Info Meaningful Use Diagnoses (Choose all that apply): None applicable Discharge Plan Admission Admit Date/Time: 08/15/22 23:10 Primary Reason for Your Visit: Epigastric pain, nausea and vomiting, coffee-ground emesis Attending Provider: Sherlyn Hayes Primary Care Provider: Zachary Vargas Chi Consulting Providers: Alissa Farley ; Wilbur Gamble ; Eulalio Ko ; Andree Riley ; Itzel Baker Discharge Orders/Prescriptions Prescriptions: New Ensure Plus High Protein 0.08 gram-1.5 kcal/mL Liquid 120 ml PO 4X/DAY Qty: 237 0RF ipratropium-albuterol 0.5 mg-3 mg(2.5 mg base)/3 mL Solution For Nebulization 3 ml inhalation Q6HWA.RT Qty: 0 0RF pantoprazole [Protonix] 40 mg tablet,delayed release (DR/EC) 40 mg PO BID Qty: 60 0RF Continued potassium chloride [Klor-Con] 20 mEq packet 20 meq PO DAILY atorvastatin 40 MG tablet 40 mg PO DAILY paroxetine HCl 20 MG tablet 20 mg PO DAILY doxepin 100 MG capsule 100 mg PO QHS Label Comments: TAKE 1 CAPSULE BY MOUTH ONCE DAILY AT BEDTIME ergocalciferol (vitamin D2) 1,250 mcg (50,000 unit) capsule 50,000 units PO QMONTH Rx Instructions: 1st of every month melatonin 10 mg tablet,ext release multiphase 10 mg PO QHS bupropion HCl (smoking deter) 150 mg tablet extended release 12 hr 150 mg PO BID famotidine 40 MG tablet 40 mg PO DAILY nicotine 7 mg/24 hr patch 24 hour 7 mg TP DAILY acetaminophen 500 MG tablet 2 tab PO TID PRN (Reason: Pain Or Fever) Qty: 1 0RF Rx Instructions: over the counter, no prescription needed. oxycodone-acetaminophen [Percocet] 5-325 mg tablet 1 tab PO Q6H PRN (Reason: pain) 3 Days Qty: 12 0RF Held aspirin 81 MG tablet,delayed release (DR/EC) 81 mg PO BID Qty: 0 0RF Hold Instructions: Until directed to restart by gastroenterology Rx Instructions: twice daily for 28 days (through 08/20) then resume daily dosing thereafter. Discontinued cyclobenzaprine 10 mg tablet 10 mg PO DAILY pantoprazole 20 MG tablet 20 mg PO BID Qty: 60 0RF Referrals / Follow Up: Todd Mcfarlane MD [Med Staff - Active Staff] - Within 1 Month (appt needs made) Luis Negrete DO [Med Staff - Active Staff] - Within 2 Weeks Zachary Vargas Chi, MD [Primary Care Provider] - Within 1 Month Disposition Disposition (needs filled in before D/C Order can be placed): [facility] Facility Charges/Coding Visit Charges Inpatient E&M: 92274 SNF Disch >30 Min
--- NOTE | 2022-08-27 14:01 | PCM.TXEXTCAR ---
Diet Diet Order/Speech Therapy: 08/25/22 17:39 Diet: Regular - General Food consistency:: Pureed Liquid Consistency:: [place]/Mildly Thick Type of Dietary Supplement:: Ensure Pudding BID w/ L&D Is pt able to select menu?: Yes Diet Comments: Direct sup,meds crushed in puree,frequent oral care;ES Plus w/B Routine Orders/Code Status Suppository Frequency: Daily PRN O2 Liters per Minute: 4-6 O2 Frequency: Continuous Keep PO Greater than or Equal to (%): 88 Routine Lab Work: CBC (On 08/31/2022-if hemoglobin stable restart aspirin 81 mg daily) and BMP (On 08/31/2022) Code Status: Full Code Therapies Weight Bearing: Full weight bearing Physical Therapy: Eval and Treat Occupational Therapy: Eval and Treat Speech Therapy: Eval and Treat Problem/Diagnosis (1) Acute GI bleeding: Status: Acute Code(s): K92.2 - Gastrointestinal hemorrhage, unspecified Allergies/Procedures Done in Hospital Allergies No Known Allergies Allergy (Verified 08/19/22 17:05) Procedures: 2-D Echocardiogram, EGD (With esophageal dilation), EKG and Intubation Type of Care/Length of Stay Estimated LOS: Convalescent Care Less Than 30 days Type of Care Needed: Skilled Rehab Potential: Fair Prognosis: Fair Additional Orders/Day of Discharge Day of Discharge: 08/27/22 Dietary and Speech Recommendations Dietitian Recommendations/Changes: Continue regular diet as tolerated with consistency/texture as per speech therapy. Will provide ensure plus high protein w/ breakfast and ensure pudding BID w/ lunch and dinner for increased nutrition if consumed. Will add ensure plus high protein 120mL 4x/day w/ medpass. Discharge Plan Admission Admit Date/Time: 08/15/22 23:10 Primary Reason for Your Visit: Epigastric pain, nausea and vomiting, coffee-ground emesis Attending Provider: Sherlyn Hayes Primary Care Provider: Zachary Vargas Chi Consulting Providers: Alissa Farley ; Wilbur Gamble ; Eulalio Ko ; Andree Riley ; Itzel Baker Discharge Orders/Prescriptions Prescriptions: New Ensure Plus High Protein 0.08 gram-1.5 kcal/mL Liquid 120 ml PO 4X/DAY Qty: 237 0RF ipratropium-albuterol 0.5 mg-3 mg(2.5 mg base)/3 mL Solution For Nebulization 3 ml inhalation Q6HWA.RT Qty: 0 0RF pantoprazole [Protonix] 40 mg tablet,delayed release (DR/EC) 40 mg PO BID Qty: 60 0RF Continued potassium chloride [Klor-Con] 20 mEq packet 20 meq PO DAILY atorvastatin 40 MG tablet 40 mg PO DAILY paroxetine HCl 20 MG tablet 20 mg PO DAILY doxepin 100 MG capsule 100 mg PO QHS Label Comments: TAKE 1 CAPSULE BY MOUTH ONCE DAILY AT BEDTIME ergocalciferol (vitamin D2) 1,250 mcg (50,000 unit) capsule 50,000 units PO QMONTH Rx Instructions: 1st of every month melatonin 10 mg tablet,ext release multiphase 10 mg PO QHS bupropion HCl (smoking deter) 150 mg tablet extended release 12 hr 150 mg PO BID famotidine 40 MG tablet 40 mg PO DAILY nicotine 7 mg/24 hr patch 24 hour 7 mg TP DAILY acetaminophen 500 MG tablet 2 tab PO TID PRN (Reason: Pain Or Fever) Qty: 1 0RF Rx Instructions: over the counter, no prescription needed. oxycodone-acetaminophen [Percocet] 5-325 mg tablet 1 tab PO Q6H PRN (Reason: pain) 3 Days Qty: 12 0RF Held aspirin 81 MG tablet,delayed release (DR/EC) 81 mg PO BID Qty: 0 0RF Hold Instructions: Until directed to restart by gastroenterology Rx Instructions: twice daily for 28 days (through 08/20) then resume daily dosing thereafter. Discontinued cyclobenzaprine 10 mg tablet 10 mg PO DAILY pantoprazole 20 MG tablet 20 mg PO BID Qty: 60 0RF Referrals / Follow Up: Todd Mcfarlane MD [Med Staff - Active Staff] - Within 1 Month (appt needs made) Luis Negrete DO [Med Staff - Active Staff] - Within 2 Weeks Zachary Vargas Chi, MD [Primary Care Provider] - Within 1 Month Disposition Disposition (needs filled in before D/C Order can be placed): Nursing Home Facility
--- NOTE | 2022-08-27 14:13 | CASEMGMT ---
MOOSE completed a 7000 in [employer]. Jeannine D/C production administrative assistant is working on setting up patient's discharge. Plan: d/c to [facility] under skilled level of care on a 7000. Mariann MOORE
--- NOTE | 2022-08-27 14:19 | CASEMGMT ---
Discharge Fish Hatchery Supervisor This senior mortgage underwriter sent D/c orders to [facility] via [facility]. [facility] time for brick picker is 4:00pm. Nursing staff aware. Fran TRIANA Business Applications Developer
--- NOTE | 2022-08-27 14:43 | NURSING ---
This RN called and gave report to JOE Miller at [facility].
--- NOTE | 2022-08-27 15:30 | CASEMGMT ---
Patient's transport was set up for 4p today. SW notified patient and her sister. Plan: d/c to [facility] under skilled level of care on a 7000 on [facility]. [facility] transported via cot. Mariann MOORE
--- NOTE | 2022-08-27 19:05 | PN_ITS ---
Subjective Subjective She is not showing any signs of GI bleeding. She is tolerating a diet. Her hemoglobin seems to be stable. Objective Data Objective Data Vital Signs: Vital Signs Temp Pulse Resp BP Pulse Ox O2 Del Method O2 Flow Rate 97.5 F L 98 18 100/61 94 High Flow 5 08/27/22 13:52 08/27/22 14:55 08/27/22 13:52 08/27/22 13:52 08/27/22 13:52 08/27/22 13:52 08/27/22 13:52 FiO2 35 08/19/22 07:00 Oxygen Flow Rate (L/min) 5 Oxygen Delivery Method High Flow Weight: 107 lb 12.897 oz Body Mass Index (BMI) 20.9 Intake & Output: Intake and Output for Last 24 Hours 08/25/22 08/26/22 08/27/22 23:59 23:59 23:59 Intake Total 442.5 / 562.5 769.83 / 849.83 757.17 / 757.17 Output Total 200 / 200 1900 / 1900 Balance 242.5 / 362.5 769.83 / 849.83 -1142.83 / -1142.83 Lab / Micro Data Result Diagrams: 08/27/22 05:47 08/27/22 05:47 Labs: Laboratory Results - last 24 hr 08/27/22 05:47: WBC 14.8 H, RBC 3.52 L, Hgb 9.7 L, Hct 29.7 L, MCV 84.4, MCH 27.6, MCHC 32.7 D, RDW Std Deviation 58.8 H, RDW Coeff of Jeanine 19.8 H, Plt Count 353, MPV 9.5, Immature Gran % (Auto) 1.400 H, Neut % (Auto) 69.7, Lymph % (Auto) 18.4 L, [place] % (Auto) 7.2, Eos % (Auto) 3.2, Baso % (Auto) 0.1, Absolute Neuts (auto) 10.3 H, Absolute Lymphs (auto) 2.72, Nucleated RBC % 0.1 08/27/22 05:47: Sodium 144, Potassium 3.4 L, Chloride 114 H, Carbon Dioxide 25.0, Anion Gap 5, BUN 9, Creatinine 0.68, Estim Creat Clear Calc 62.40, Est GFR (MDRD) Af Amer 113, Est GFR (MDRD) Non-Af 93, BUN/Creatinine Ratio 13.2, Glucose 67 L, Calcium 7.6 L, Magnesium 2.0 08/27/22 05:47: Phosphorus 2.9 Micro: Microbiology 08/27/22 13:53 Nasal Secretion SARS-CoV-2 Antigen (Rapid) - Final 08/16/22 04:54 Blood Culture (Wb) - Anticubital Left Blood Culture - Final No growth in 5 days. 08/16/22 04:37 Blood Culture (Wb) - Anticubital Right Blood Culture - Final No growth in 5 days. 08/16/22 04:30 Sputum, Induced/[place] Gram Stain - Final 08/16/22 04:30 Sputum, Induced/[place]ukens Respiratory Culture - Final Serratia marcescens Staphylococcus aureus Streptococcus agalactiae (B) 08/16/22 03:40 Urine Catheter - [place] Urine Culture - Final Culture exhibits no growth. Radiography Diagnostic Testing: Radiology Impression Chest X-Ray 08/27/22 09:07 IMPRESSION: Improvement in bibasilar atelectasis Electronically Signed: Yayo Bingham MD at 9:25 EDT , Rhythm Strip Rhythm Strip: Sinus Tach Rate: 102 Ectopy: None Physical Exam Narrative No issues overnight, patient reports she is feeling well overall. Tolerating p.o. intake without difficulties. Remains on supplemental oxygen. Const alert and no apparent distress Constitutional Narrative: Thin, older female sitting up in bed watching television and feeding herself breakfast, aide at bedside assisting, appears comfortable and nontoxic, appears to have some memory issues at baseline, thin General Appearance: cooperative and comfortable Orientation / Consciousness: awake, oriented to person and oriented to place Exam Limitations: other limitations Nutritional Appearance: thin HEENT normocephalic, head/scalp atraumatic and moist oral mucous membranes HEENT Narrative: Temporal wasting bilaterally, mild hearing loss, dentition is poor, Mallampati is 2, no thrush Eyes PERRL and EOMs intact bilaterally; Negative for conjunctivae normal Eyes Narrative: Mild conjunctival pallor, no scleral icterus Neck no lymphadenopathy and supple Neck Narrative: Trachea midline, no thyroid enlargement Resp normal respiratory effort, no retractions and no use of accessory muscles Resp Narrative: Markedly diminished diffusely but clear, currently on 4-6 L nasal cannula Cardio regular rate, regular rhythm, S1 normal heart sound, S2 normal heart sound, no murmurs, no rub, no gallops and no clicks GI normal to inspection, nondistended, normoactive bowel sounds, soft to palpation and non-tender Extremity no clubbing, cyanosis or edema Extremity Narrative: Markedly decreased lean muscle mass Skin no wounds, skin turgor normal and no jaundice Skin Narrative: Pale, thin skin, scattered ecchymosis, no significant wounds Neuro moves all extremities and no focal motor deficits Neuro Narrative: Flexion contractures left upper and lower extremity upper worse than lower, speech is at baseline Psych affect normal Psych Narrative: Very pleasant, seems intermittently impulsive Assessment & Plan Assessment/Plan (1) Acute GI bleeding: PLAN: Upper GI bleed secondary to erosive esophagitis, eosinophilic esophagitis status post endoscopic treatment. She also underwent endoscopic dilation and she is able to eat better. She will need to follow-up as an outpatient so we can complete her anemia work-up with a colonoscopy and capsule endoscopy. Charges/Coding Visit Charges Inpatient E&M: 06260 Subs Hosp L2
== END 2022-08-27 16:13 | disposition skilled nursing facility (03) | DRG 243 ==
LOC: ED 19:25 → PCU 20:25 → ICU 08-16 07:08 → PCU 08-16 10:25 → ICU 08-22 17:48 → PCU 08-23 15:19
PROVIDERS: Hospitalist; Internal Medicine; Internal Medicine Critical Care Medicine; Internal Medicine Gastroenterology; Admitting Provider Family Medicine; Emergency Provider Emergency Medicine; PCP Family Medicine Geriatric Medicine; Visit Provider Internal Medicine
PROC: 0DJ08ZZ Inspection of Upper Intestinal Tract, Via Natural or Artificial Opening Endoscopic (ICD-10-PCS; CPT 43235; principal; 2022-08-25 15:55)
DX: K20.0 Eosinophilic esophagitis (principal); J96.01 Acute respiratory failure with hypoxia; R57.8 Other shock; J69.0 Pneumonitis due to inhalation of food and vomit; G93.41 Metabolic encephalopathy; E43 Unspecified severe protein-calorie malnutrition; J15.211 Pneumonia due to Methicillin susceptible Staphylococcus aureus; J15.6 Pneumonia due to other Gram-negative bacteria; E27.40 Unspecified adrenocortical insufficiency; I69.354 Hemiplegia and hemiparesis following cerebral infarction affecting left non-dominant side; J43.9 Emphysema, unspecified; J15.3 Pneumonia due to streptococcus, group B; F10.21 Alcohol dependence, in remission; E87.0 Hyperosmolality and hypernatremia; D62 Acute posthemorrhagic anemia; D50.9 Iron deficiency anemia, unspecified; E78.5 Hyperlipidemia, unspecified; I10 Essential (primary) hypertension; F41.9 Anxiety disorder, unspecified; K44.9 Diaphragmatic hernia without obstruction or gangrene; E87.6 Hypokalemia; E03.9 Hypothyroidism, unspecified; F17.210 Nicotine dependence, cigarettes, uncomplicated; E55.9 Vitamin D deficiency, unspecified; K22.2 Esophageal obstruction; E83.42 Hypomagnesemia; E83.39 Other disorders of phosphorus metabolism; I69.328 Other speech and language deficits following cerebral infarction; R13.10 Dysphagia, unspecified; Z79.82 Long term (current) use of aspirin; Z68.20 Body mass index [BMI] 20.0-20.9, adult
CPT/HCPCS: 31500; 31720; 36415; 36600; 51702; 71045; 74018; 74177; 74230; 80048; 80053; 81001; 82533; 82728; 82803; 83540; 83550; 83690; 83735; 84100; 85014; 85018; 85025; 85045; 85610; 85730; 86850; 86900; 86901; 86920; 86922; 87040; 87070; 87077; 87086; 87186; 87205; 87426; 88305; 88312; 92507; 92526; 92610; 92611; 93005; 93306; 94002; 94003; 94640; 94660; 94799; 97110; 97116; 97162; 97166; 97530; 97535; 97802; 97803; 99251; 99285; 99406; J7030; J7040; J7050; J7120; P9016; Q9957; Q9967; A4216; C8929; G0463; J0295; J1940; J2405; J3010

== ENCOUNTER → 2022-08-28 | Outpatient (REF) | payer MEDICAID, SELFPAY ==
[2022-08-28 08:03] LABS: Hematocrit 33.8 % (37-47); Hemoglobin 10.9 g/dL (12.0-15.0); Mean Corp Hgb Conc 32.2 g/dL (32-36); Mean Corpuscular Hgb 27.6 pg (27.0-32.0); Mean Corpuscular Volume 85.6 fL (81-99); Mean Platelet Vol. 9.9 fl (6.2-12.0); POSITIVE MORPHOLOGY YES; Platelet Count 459 K/mm3 (150-450); RBC Distribution Width CV 20.3 % (11.6-14.6); RBC Distribution Width SD 61.3 fl (35.1-43.9); Red Blood Count 3.95 M/mm3 (4.2-5.4); White Blood Count 18.7 K/mm3 (4.4-11.0)
[2022-08-28 08:13] LABS: Vitamin B12 438 pg/mL (211-911)
[2022-08-28 08:20] LABS: Anion Gap 6 (5-15); BUN 8 mg/dL (7-18); BUN/Creat Ratio 11.5 RATIO (10-20); Calcium,Total 8.2 mg/dL (8.5-10.1); Chloride 110 mmol/L (98-107); EST Glomerular Filtration Rate 91 mL/min (>60); Est Glom Filt Rate - Afr Amer 110 mL/min (>60); Glucose 85 mg/dL (74-106); Magnesium 2.2 mg/dL (1.6-2.6); Potassium 3.3 mmol/L (3.5-5.1); Sodium Level 144 mmol/L (136-145); Thyroid Stim Hormone (TSH) 7.89 uIU/mL (0.358-3.74)
[2022-08-28 08:34] LABS: Scan Indicated on CBC? Y/N YES- FLAGS NOTED
== END | disposition home or self-care (01) ==
LOC: OLS.SW1020 05:00
PROVIDERS: PCP Family Medicine Geriatric Medicine; Visit Provider Internal Medicine
DX: D64.9 Anemia, unspecified (principal); J44.9 Chronic obstructive pulmonary disease, unspecified; E03.9 Hypothyroidism, unspecified; Z79.899 Other long term (current) drug therapy; E55.9 Vitamin D deficiency, unspecified
CPT/HCPCS: 36415; 80048; 82306; 82607; 83735; 84443; 85027

== ENCOUNTER → 2022-08-31 | Outpatient (REF) | payer MEDICAID, SELFPAY ==
[2022-08-31 07:01] LABS: Absolute Lymphocyte Count 2.95 X10^3/uL (0.83-4.51); Absolute Neutrophil Count 6.6 X10^3/uL (2.0-7.7); Basophil# 0.05 X10^3/uL; Basophil% 0.4 % (0-1); Eosinophil# 0.65 X10^3/uL; Eosinophils% 5.7 % (0-5); Hematocrit 31.4 % (37-47); Hemoglobin 9.4 g/dL (12.0-15.0); Lymphocyte # 2.95 X10^3/ul (0.83-4.51); Lymphocyte % 25.8 % (19-41); Mean Corp Hgb Conc 29.9 g/dL (32-36); Mean Corpuscular Hgb 26.5 pg (27.0-32.0); Mean Corpuscular Volume 88.5 fL (81-99); Mean Platelet Vol. 9.9 fl (6.2-12.0); Monocyte# 1.08 X10^3/uL; Monocyte% 9.4 % (0-10); NRBC Flagged by Analyzer 0 % (0-5); Neutrophil # 6.62 X10^3/uL (2.7-7.7); Neutrophil % 57.8 % (47-70); POSITIVE MORPHOLOGY YES; Platelet Count 488 K/mm3 (150-450); RBC Distribution Width CV 21.4 % (11.6-14.6); RBC Distribution Width SD 68.2 fl (35.1-43.9); Red Blood Count 3.55 M/mm3 (4.2-5.4); White Blood Count 11.5 K/mm3 (4.4-11.0)
[2022-08-31 07:08] LABS: Differential Indicated SCAN CRITERIA MET
[2022-08-31 07:22] LABS: Anion Gap 8 (5-15); BUN 8 mg/dL (7-18); BUN/Creat Ratio 12.8 RATIO (10-20); Chloride 111 mmol/L (98-107); Creatinine, Serum 0.62 mg/dL (0.55-1.02); EST Glomerular Filtration Rate 103 mL/min (>60); Est Glom Filt Rate - Afr Amer 125 mL/min (>60); Glucose 77 mg/dL (74-106); Magnesium 2.2 mg/dL (1.6-2.6); Potassium 3.6 mmol/L (3.5-5.1); Sodium Level 144 mmol/L (136-145)
[2022-08-31 07:50] LABS: Differential Comment SCANNED; Ovalocyte RARE
[2022-08-31 07:51] LABS: Anisocytosis 2+; Macrocytosis 1+; Microcytosis 1+
== END | disposition home or self-care (01) ==
LOC: OLS.SW 04:00
PROVIDERS: PCP Family Medicine Geriatric Medicine; Visit Provider Internal Medicine
DX: E87.6 Hypokalemia (principal); J44.9 Chronic obstructive pulmonary disease, unspecified; E43 Unspecified severe protein-calorie malnutrition; D62 Acute posthemorrhagic anemia; J96.01 Acute respiratory failure with hypoxia
CPT/HCPCS: 36415; 80048; 83735; 85025

== ENCOUNTER 2022-09-02 17:46 | Emergency (ER) | payer MEDICAID, SELFPAY ==
[2022-09-02 17:49] VITALS: BP 120/73; PULSE 112; RESP 14; TEMP 36.2; O2SAT 90; BMI 19.7
[2022-09-02 19:55] VITALS: PULSE 78; RESP 18; O2SAT 95
[2022-09-02 21:00] VITALS: PULSE 107; RESP 18; O2SAT 96
--- NOTE | 2022-09-02 22:18 | RAD_ITS ---
EXAM: XR CHEST, 2 VIEWS CLINICAL INDICATION: aspiration, cough TECHNIQUE: Frontal and lateral views of the chest. This report was created using [employer] report generation technology. COMPARISON: 08/27/2022. FINDINGS: LUNGS AND PLEURAL SPACES: Unremarkable. No consolidation or edema. No pneumothorax. No effusion. HEART: Unremarkable. Cardiac silhouette not enlarged. MEDIASTINUM: Central airways and mediastinal contour are unremarkable. BONES/JOINTS: Old bilateral rib fractures. SOFT TISSUES: Unremarkable. TUBES, LINES AND DEVICES: Central line is been removed. RAD/Chest PA and Lateral IMPRESSION: 1. No acute cardiopulmonary abnormality. 2. Old bilateral rib fractures. 3. Central line is been removed. Electronically Signed: Dequan Sanchez MD at 23:02 EDT ,
[2022-09-02 23:00] VITALS: PULSE 107; RESP 20; O2SAT 97
--- NOTE | 2022-09-03 00:13 | ED.RN ---
THIS RN CALLED [facility] TO INFORM NURSE PATIENT WILL BE RETURNING TO [facility]. TRANSPORT WILL BE 2-3 HOURS. PATIENT FAMILY MEMBER ASKING ABOUT NIGHT TIME MEDS. NURSE AT [facility] STATES SHE WILL GIVE PATIENTS MEDS WHEN SHE RETURNS. NURSE HAS NO FURTHER QUESTIONS AT THIS TIME.
--- NOTE | 2022-09-03 01:24 | EX.ED.DYSGE1 ---
HPI History of Present Illness Chief Complaint: Foreign Body Informant: patient and family Narrative Narrative: Patient is a 62-year-old female with history of iron deficiency anemia, recent GI bleed, pneumonia, hypoxic respiratory failure currently on 2 to 5 L of oxygen, stroke with left-sided deficits and recent hospitalization for GI bleed and ultimately had esophageal dilation for stricture. Patient has been on pur?ed diet as she has chronic dysphagia. Daughter notes that she has a coughing episode about once a day with meals. Tonight she was eating dinner when she had a significantly bad coughing episode. She felt she was choking. She could not catch her breath. EMS was called and she was brought to the emergency room. Patient has been having chills for the past hour. Her breathing has returned to baseline. She currently denies any respiratory symptoms. No other complaints at this time. [facility] Medical History Anemia Anxiety and depression Arthritis Asthma COPD (chronic obstructive pulmonary disease) Difficulty swallowing Emphysema lung Encounter for screening for malignant neoplasm of lung in current smoker with 30 pack year history or greater Gammopathy GERD (gastroesophageal reflux disease) History of back problems Hyperlipidemia Hypothyroidism Iron deficiency anemia due to chronic blood loss Left hemiplegia Nicotine abuse Osteoporosis Polycythemia vera Thrombocytosis Tobacco use disorder, continuous Home Medications atorvastatin 40 mg tablet 40 mg PO DAILY cholesterol 12/26/18 [History Last Taken 07/21/20] doxepin 100 mg capsule 100 mg PO QHS depression 12/10/19 [History Last Taken 07/21/20] paroxetine HCl 20 mg tablet 20 mg PO DAILY depression 12/10/19 [History Last Taken 07/21/20] bupropion HCl (smoking deter) 150 mg tablet,12 hr sustained-release(smoking deterrent) 150 mg PO BID depression 05/20/20 [History Last Taken 07/22/20] ergocalciferol (vitamin D2) 1,250 mcg (50,000 unit) capsule 50,000 units PO QMONTH supplement 05/20/20 [History Last Taken 07/09/20] melatonin 10 mg tablet,extended release,multiphase 10 mg PO QHS sleep 05/20/20 [History Last Taken 07/21/20] famotidine 40 mg tablet 40 mg PO DAILY gerd 07/22/20 [History Last Taken Unknown] nicotine 7 mg/24 hr daily transdermal patch 7 mg TP DAILY smoking 07/22/20 [History Last Taken Unknown] acetaminophen 500 mg tablet 2 tab PO TID PRN Pain Or Fever #1 TAB 07/26/20 [Rx Last Taken Unknown] aspirin 81 mg tablet,delayed release 81 mg PO BID health maintenance ##0 07/26/20 [Rx Last Taken 07/18/20] potassium chloride 20 mEq oral packet (Klor-Con) 20 meq PO DAILY 03/06/22 [History Last Taken Unknown] oxycodone-acetaminophen 5 mg-325 mg tablet (Percocet) 1 tab PO Q6H PRN pain 3 days #12 tabs 05/30/22 [Rx Last Taken Unknown] food supplemt, lactose-reduced 0.08 gram-1.5 kcal/mL oral liquid (Ensure Plus High Protein) 120 ml PO 4X/DAY #237 mL 08/27/22 [Rx Last Taken Unknown] ipratropium 0.5 mg-albuterol 3 mg (2.5 mg base)/3 mL nebulization soln 3 ml inhalation Q6HWA.RT #0 mL 08/27/22 [Rx Last Taken Unknown] pantoprazole 40 mg tablet,delayed release (Protonix) 40 mg PO BID #60 tabs 08/27/22 [Rx Last Taken Unknown] Allergy/AdvReac Type Severity Reaction Status Date / Time No Known Allergies Allergy Verified 09/02/22 17:49 Family History Mother Diabetes Cancer Surgical History History of right knee surgery right ankle surgery Social History Smoking Status: Current every day smoker tobacco type: cigarettes alcohol intake: never substance use type: does not use ROS ROS ED Constitutional Constitutional ED: Reports chills; Denies fever(s) Eyes Eyes: Denies change in vision ENT ENT ED: Denies rhinorrhea or sore throat Cardiovascular Cardiovascular: Denies chest pain or palpitations Respiratory/Chest Respiratory/Chest: Reports cough and dyspnea Gastrointestinal Gastrointestinal: Denies abdominal pain, nausea or vomiting Genitourinary Genitourinary ED: Denies dysuria or hematuria Musculoskeletal Musculoskeletal: Denies arthralgias Integumentary Denies rash Neurologic Neurologic: Reports weakness; Denies headache(s) Psychiatric Psychiatric: Reports anxiety Hematologic/Lymphatic Hematologic/Lymphatic: Reports easy bleeding EXAM Physical Exam Const Vital Signs: 09/02/22 17:49 09/02/22 19:55 09/02/22 19:55 Temperature 97.2 F L Temperature Source Temporal Pulse Rate 112 H 78 Respiratory Rate 14 18 Respiratory Pattern Normal Blood Pressure 120/73 Blood Pressure Mean 88 Pulse Ox 90 95 Oxygen Delivery Method Room Air Nasal Cannula Oxygen Flow Rate (L/min) 2 09/02/22 21:00 09/02/22 23:00 Temperature Temperature Source Pulse Rate 107 H 107 H Respiratory Rate 18 20 H Respiratory Pattern Blood Pressure Blood Pressure Mean Pulse Ox 96 97 Oxygen Delivery Method Oxygen Flow Rate (L/min) Constitutional Narrative: Frail General Appearance ED: NAD HEENT Reports moist mucous membranes Negative for trauma Eyes PERRL and EOMs intact bilaterally Neck supple and no JVD Neck Narrative: Trachea is midline, no crepitus Chest Wall inspection of chest normal and palpation of chest normal Resp normal respiratory effort and clear to auscultation bilaterally Auscultation: Negative for rales, rhonchi or wheezes Cardio regular rhythm Rate: tachycardic GI normal to inspection, nondistended, normoactive bowel sounds and non-tender Extremity Extremity Narrative: Contracture of the left upper extremity. General Extremety ED: Negative for edema General Extremity: Negative for edema Neuro oriented x3 Neuro Narrative: Dysarthria present which is chronic per daughter from her prior stroke. Left-sided deficits which are also chronic. Sensorium / Orientation: alert Psych mental status grossly normal Skin no rashes or lesions noted and no wounds MDM MDM MDM Narrative Medical decision making narrative: Patient is evaluated after choking/coughing episode. Concerned that she might of aspirated something. No signs of food bolus and will likely for esophageal impaction given that she is on a pur?ed diet. Patient is only on 2 L of oxygen at this time which is actually less than her baseline. No wheezing or abnormal breath sounds appreciated. 2 view chest x-ray does not show any acute pulmonary process. No signs of acute aspiration or inflammation of the lungs. Given that she has improving O2 demands, is asymptomatic at this time breathing comfortably can be discharged back to [facility]. Patient and daughter agreeable to splenic care. Counseled on signs and symptoms of aspiration pneumonia and need to return the emergency room. Counseled the importance of a pur?ed/thickened diet to help with her dysphagia symptoms. Radiography Chest X-Ray - ED: 2 View, Read by ED Physician, Read by Radiologist and No Acute Disease Diagnostic Testing: Clinical Impression(s) from Imaging Studies Chest X-Ray 09/02/22 22:18 IMPRESSION: 1. No acute cardiopulmonary abnormality. 2. Old bilateral rib fractures. 3. Central line is been removed. Electronically Signed: Dequan Sanchez MD at 23:02 EDT , Discharge Plan Triage Chief Complaint: Foreign Body ED Provider: Arlin Dawkins Dx/Rx/DC Orders Clinical Impression: Recurrent aspiration events, Cough Instructions: Dysphagia Aspiration Prescriptions: No Action potassium chloride [Klor-Con] 20 mEq packet 20 meq PO DAILY atorvastatin 40 MG tablet 40 mg PO DAILY paroxetine HCl 20 MG tablet 20 mg PO DAILY doxepin 100 MG capsule 100 mg PO QHS Label Comments: TAKE 1 CAPSULE BY MOUTH ONCE DAILY AT BEDTIME ergocalciferol (vitamin D2) 1,250 mcg (50,000 unit) capsule 50,000 units PO QMONTH Rx Instructions: 1st of every month melatonin 10 mg tablet,ext release multiphase 10 mg PO QHS bupropion HCl (smoking deter) 150 mg tablet extended release 12 hr 150 mg PO BID famotidine 40 MG tablet 40 mg PO DAILY nicotine 7 mg/24 hr patch 24 hour 7 mg TP DAILY acetaminophen 500 MG tablet 2 tab PO TID PRN (Reason: Pain Or Fever) Qty: 1 0RF Rx Instructions: over the counter, no prescription needed. aspirin 81 MG tablet,delayed release (DR/EC) 81 mg PO BID Qty: 0 0RF Hold Instructions: Until directed to restart by gastroenterology Rx Instructions: twice daily for 28 days (through 08/20) then resume daily dosing thereafter. oxycodone-acetaminophen [Percocet] 5-325 mg tablet 1 tab PO Q6H PRN (Reason: pain) 3 Days Qty: 12 0RF Ensure Plus High Protein 0.08 gram-1.5 kcal/mL Liquid 120 ml PO 4X/DAY Qty: 237 0RF ipratropium-albuterol 0.5 mg-3 mg(2.5 mg base)/3 mL Solution For Nebulization 3 ml inhalation Q6HWA.RT Qty: 0 0RF pantoprazole [Protonix] 40 mg tablet,delayed release (DR/EC) 40 mg PO BID Qty: 60 0RF Primary Care Provider: Zachary Vargas Chi Referrals: Zachary Vargas Chi, MD [Primary Care Provider] - Activity Restrictions/Additional Instructions: Your oxygen level is at your baseline. No signs of a pneumonia or aspiration pneumonitis on your chest x-ray. Please continue to have a thickened diet and follow-up outpatient for your dysphagia. If you develop a fever, increased O2 demands or worsening respiratory symptoms return to the emergency room or follow-up with your primary care doctor for repeat x-ray and possible antibiotics at that time. Disposition Disposition: Long Term Facility Discharge Location: [facility]
== END 2022-09-03 03:10 | disposition skilled nursing facility (03) ==
PROVIDERS: Emergency Provider Emergency Medicine; PCP Family Medicine Geriatric Medicine; Visit Provider Emergency Medicine
DX: T17.928A Food in respiratory tract, part unspecified causing other injury, initial encounter (principal); J69.0 Pneumonitis due to inhalation of food and vomit; I69.354 Hemiplegia and hemiparesis following cerebral infarction affecting left non-dominant side; J43.9 Emphysema, unspecified; J96.91 Respiratory failure, unspecified with hypoxia; R13.10 Dysphagia, unspecified; E78.5 Hyperlipidemia, unspecified; F17.210 Nicotine dependence, cigarettes, uncomplicated; D50.9 Iron deficiency anemia, unspecified; F41.9 Anxiety disorder, unspecified; K22.89 Other specified disease of esophagus; Z99.81 Dependence on supplemental oxygen; X58.XXXA Exposure to other specified factors, initial encounter
CPT/HCPCS: 71046; 99284

== ENCOUNTER → 2022-09-07 | Outpatient (REF) | payer MEDICAID, SELFPAY ==
[2022-09-07 08:06] LABS: Basophil# 0.16 X10^3/uL; Basophil% 1.8 % (0-1); Eosinophil# 0.29 X10^3/uL; Eosinophils% 3.2 % (0-5); Hematocrit 35.8 % (37-47); Hemoglobin 10.7 g/dL (12.0-15.0); Lymphocyte % 29.7 % (19-41); Mean Corp Hgb Conc 29.9 g/dL (32-36); Mean Corpuscular Hgb 27.2 pg (27.0-32.0); Mean Corpuscular Volume 90.9 fL (81-99); Mean Platelet Vol. 10.3 fl (6.2-12.0); Monocyte# 0.88 X10^3/uL; Monocyte% 9.7 % (0-10); NRBC Flagged by Analyzer 0 % (0-5); Neutrophil # 5.02 X10^3/uL (2.7-7.7); Neutrophil % 55.2 % (47-70); POSITIVE COUNT YES; POSITIVE MORPHOLOGY YES; Platelet Count 369 K/mm3 (150-450); RBC Distribution Width SD 69.7 fl (35.1-43.9); Red Blood Count 3.94 M/mm3 (4.2-5.4); White Blood Count 9.1 K/mm3 (4.4-11.0)
[2022-09-07 08:19] LABS: Anion Gap 10 (5-15); BUN 13 mg/dL (7-18); BUN/Creat Ratio 16.4 RATIO (10-20); Calcium,Total 8.8 mg/dL (8.5-10.1); Chloride 110 mmol/L (98-107); EST Glomerular Filtration Rate 78 mL/min (>60); Est Glom Filt Rate - Afr Amer 94 mL/min (>60); Glucose 74 mg/dL (74-106); Magnesium 2.1 mg/dL (1.6-2.6); Potassium 4.1 mmol/L (3.5-5.1); Sodium Level 143 mmol/L (136-145)
[2022-09-07 09:24] LABS: Anisocytosis 1+; Differential Indicated SCAN CRITERIA MET
== END | disposition home or self-care (01) ==
LOC: OLS.SW 04:00
PROVIDERS: PCP Family Medicine Geriatric Medicine; Visit Provider Internal Medicine
DX: D62 Acute posthemorrhagic anemia (principal); J96.01 Acute respiratory failure with hypoxia; J44.9 Chronic obstructive pulmonary disease, unspecified; R13.12 Dysphagia, oropharyngeal phase; I69.352 Hemiplegia and hemiparesis following cerebral infarction affecting left dominant side; E43 Unspecified severe protein-calorie malnutrition
CPT/HCPCS: 36415; 80048; 83735; 85025

== ENCOUNTER 2022-10-05 15:56 | Observation (INO) | payer MEDICAID, SELFPAY ==
[2022-10-05 15:58] VITALS: BP 102/69; PULSE 102; RESP 18; TEMP 37; O2SAT 97; BMI 21.5
--- NOTE | 2022-10-05 16:28 | EX.ED.DYSGE1 ---
HPI History of Present Illness Chief Complaint: Other, Pain/Inj Detail of Chief Complaint: Sent in for admission for PEG tube placement. Informant: patient and SNF Onset/Context/Timing Onset: Weeks Context: Gradual Onset Timing: Continuous Current Severity: Mild Maximum Severity: Mild Narrative Narrative: 62-year-old female history of prior stroke with left arm paralysis and left leg weakness. Previously had a feeding tube she had been doing well so it was removed recently has been aspirating when she eats or drinks. She is at a local extended care facility [facility] and they sent her in to be admitted to get some type of either feeding tube or NG feeding tube. Patient denies complaints otherwise. States every time she drinks or eats something she chokes. Prior similar symptoms: Yes Recent Illness/Hospitalization: Yes PFSH COUNTS INCLUDE 234 BEDS AT THE [facility] Medical History Anemia Anxiety and depression Arthritis Asthma COPD (chronic obstructive pulmonary disease) Difficulty swallowing Emphysema lung Encounter for screening for malignant neoplasm of lung in current smoker with 30 pack year history or greater Esophageal thickening Gammopathy GERD (gastroesophageal reflux disease) History of back problems History of peptic ulcer Hyperlipidemia Hypothyroidism Iron deficiency anemia due to chronic blood loss Left hemiplegia Nicotine abuse Osteoporosis Polycythemia vera Thrombocytosis Tobacco use disorder, continuous Home Medications atorvastatin 40 mg tablet 40 mg PO DAILY cholesterol 12/26/18 [History Last Taken 07/21/20] doxepin 100 mg capsule 100 mg PO QHS depression 12/10/19 [History Last Taken 07/21/20] paroxetine HCl 20 mg tablet 20 mg PO DAILY depression 12/10/19 [History Last Taken 07/21/20] bupropion HCl (smoking deter) 150 mg tablet,12 hr sustained-release(smoking deterrent) 150 mg PO BID depression 05/20/20 [History Last Taken 07/22/20] ergocalciferol (vitamin D2) 1,250 mcg (50,000 unit) capsule 50,000 units PO QMONTH supplement 05/20/20 [History Last Taken 07/09/20] melatonin 10 mg tablet,extended release,multiphase 10 mg PO QHS sleep 05/20/20 [History Last Taken 07/21/20] famotidine 40 mg tablet 40 mg PO DAILY gerd 07/22/20 [History Last Taken Unknown] nicotine 7 mg/24 hr daily transdermal patch 7 mg TP DAILY smoking 07/22/20 [History Last Taken Unknown] acetaminophen 500 mg tablet 2 tab PO TID PRN Pain Or Fever #1 TAB 07/26/20 [Rx Last Taken Unknown] aspirin 81 mg tablet,delayed release 81 mg PO BID health maintenance ##0 07/26/20 [Rx Last Taken 07/18/20] potassium chloride 20 mEq oral packet (Klor-Con) 20 meq PO DAILY 03/06/22 [History Last Taken Unknown] oxycodone-acetaminophen 5 mg-325 mg tablet (Percocet) 1 tab PO Q6H PRN pain 3 days #12 tabs 05/30/22 [Rx Last Taken Unknown] food supplemt, lactose-reduced 0.08 gram-1.5 kcal/mL oral liquid (Ensure Plus High Protein) 120 ml PO 4X/DAY #237 mL 08/27/22 [Rx Last Taken Unknown] ipratropium 0.5 mg-albuterol 3 mg (2.5 mg base)/3 mL nebulization soln 3 ml inhalation Q6HWA.RT #0 mL 08/27/22 [Rx Last Taken Unknown] pantoprazole 40 mg tablet,delayed release (Protonix) 40 mg PO BID #60 tabs 08/27/22 [Rx Last Taken Unknown] Allergy/AdvReac Type Severity Reaction Status Date / Time No Known Allergies Allergy Verified 10/05/22 16:15 Family History Mother Diabetes Cancer Surgical History History of right knee surgery right ankle surgery Social History Smoking Status: Current every day smoker tobacco type: cigarettes alcohol intake: never substance use type: does not use ROS ROS ED ROS Narrative Aspiration with oral intake. Review of Systems ROS Unobtainable: Denies due to encephalopathy Constitutional Constitutional ED: Denies chills or fever(s) Eyes Eyes: Denies blurry vision ENT ENT ED: Denies ear pain Cardiovascular Cardiovascular: Denies chest pain Respiratory/Chest Respiratory/Chest: Denies cough or dyspnea Gastrointestinal Gastrointestinal: Denies abdominal pain Genitourinary Genitourinary ED: Denies dysuria or hematuria Musculoskeletal Musculoskeletal: Denies arthralgias Integumentary Denies abscess Neurologic Neurologic: Denies headache(s) Psychiatric Psychiatric: Denies anxiety Endocrine Endocrinology: Denies cold intolerance Hematologic/Lymphatic Hematologic/Lymphatic: Reports none Allergic/Immunologic Allergic/Immunologic ED: Denies mouth swelling or tongue swelling EXAM Physical Exam Narrative Exam Narrative: 62-year-old female no acute distress vital signs stable afebrile. HEENT exam unremarkable. Moist mucous membranes. Neck nontender no JVD. Lungs clear to auscultation. Heart regular rhythm rate about 100 no murmur. Abdomen soft nontender normal bowel sounds no peritoneal signs. Extremities moving both the right upper and right lower extremity. Normal strength. Paralyzed left arm. Weakness in the left leg primarily with dorsi plantarflexion. Neurologically she is awake and alert. Answers questions and follows commands. Const Vital Signs: 10/05/22 15:58 10/05/22 16:18 Temperature 98.6 F Temperature Source Oral Pulse Rate 102 H Respiratory Rate 18 Respiratory Effort Normal Non-Labored Respiratory Pattern Normal Blood Pressure 102/69 Blood Pressure Mean 80 Pulse Ox 97 Oxygen Delivery Method Room Air Positive well nourished and well developed; Negative for obese, cachectic, contractures or unkempt General Appearance ED: well developed and NAD; Negative for unkempt, cachectic, contractures, cyanotic or diaphoretic Nutritional Appearance: Negative for cachectic or obese HEENT Reports moist mucous membranes; Denies dry mucous membranes Negative for trauma or tenderness Mouth ED: No dry mucous membranes Mouth: No dry mucous membranes Eyes PERRL and EOMs intact bilaterally General Eye ED: Negative for pale conjunctiva or scleral icterus Neck no lymphadenopathy, supple and no JVD General: Negative for tenderness Lymph Lymphatic: Negative for other Chest Wall inspection of chest normal and palpation of chest normal Chest: Negative for other Resp normal respiratory effort and clear to auscultation bilaterally Effort and Inspection: Negative for retractions Auscultation: Negative for rales, rhonchi or wheezes Cardio regular rate, regular rhythm, S1 normal heart sound, S2 normal heart sound and no murmurs GI normal to inspection, nondistended, normoactive bowel sounds, non-tender, non-distended and no masses Inspection: Negative for abdominal distention Auscultation: normoactive bowel sounds Palpation: soft; Negative for tender or guarding Extremity normal to inspection Extremity Narrative: Except paralyzed left arm. Weakness left leg. History of a prior left-sided stroke General Extremety ED: Negative for edema or tenderness General Extremity: Negative for edema Neuro oriented x3 Neuro Narrative: Stutters. Sensorium / Orientation: alert; Negative for orientation impaired, lethargic or stuporous Motor Exam: strength abnormal Psych mental status grossly normal Appearance: Negative for unkempt Attitude: No agitated Mood & Affect: Negative for depressed, anxious or tearful Skin no rashes or lesions noted and no wounds Rashes: No rashes noted Trauma: Negative for abrasion Wounds: Negative for wounds noted MDM MDM MDM Narrative Medical decision making narrative: 62-year-old female history of aspiration with both fluid and solid intake. Sent in from extended care facility to be admitted for some type of feeding tube placement. I will obtain screening labs. Speak to the hospitalist about admission. Patient was admitted to the hospitalist. I have GI on page. Lab Data Attestation: I reviewed the patient's lab results. Lab results narrative: CBC shows a white count 8. H&H of 10.9 and 36.8. She has a history of anemia from prior GI bleeding. Platelets 46. Chemistries pending. Labs: Laboratory Results - last 24 hr 10/05/22 10/05/22 16:40 16:40 WBC 8.6 RBC 4.28 Hgb 10.9 L Hct 36.8 L MCV 86.0 MCH 25.5 L MCHC 29.6 L RDW Std Deviation 57.2 H RDW Coeff of Jeanine 18.2 H Plt Count 486 H MPV 10.0 Immature Gran % (Auto) 0.100 Neut % (Auto) 50.8 Lymph % (Auto) 33.7 Mckinley % (Auto) 12.3 H Eos % (Auto) 2.1 Baso % (Auto) 1.0 Absolute Neuts (auto) 4.4 Absolute Lymphs (auto) 2.91 Nucleated RBC % 0 Sodium Cancelled Potassium Cancelled Chloride Cancelled Carbon Dioxide Cancelled Anion Gap Cancelled BUN Cancelled Creatinine Cancelled Estim Creat Clear Calc Cancelled Est GFR (MDRD) Af Amer Cancelled Est GFR (MDRD) Non-Af Cancelled BUN/Creatinine Ratio Cancelled Glucose Cancelled Calcium Cancelled Discharge Plan Triage Chief Complaint: Other, Pain/Inj ED Provider: Colin Jones Dx/Rx/DC Orders Clinical Impression: Aspiration into airway, History of cerebrovascular accident, History of GI bleed Prescriptions: No Action potassium chloride [Klor-Con] 20 mEq packet 20 meq PO DAILY atorvastatin 40 MG tablet 40 mg PO DAILY paroxetine HCl 20 MG tablet 20 mg PO DAILY doxepin 100 MG capsule 100 mg PO QHS Label Comments: TAKE 1 CAPSULE BY MOUTH ONCE DAILY AT BEDTIME ergocalciferol (vitamin D2) 1,250 mcg (50,000 unit) capsule 50,000 units PO QMONTH Rx Instructions: 1st of every month melatonin 10 mg tablet,ext release multiphase 10 mg PO QHS bupropion HCl (smoking deter) 150 mg tablet extended release 12 hr 150 mg PO BID famotidine 40 MG tablet 40 mg PO DAILY nicotine 7 mg/24 hr patch 24 hour 7 mg TP DAILY acetaminophen 500 MG tablet 2 tab PO TID PRN (Reason: Pain Or Fever) Qty: 1 0RF Rx Instructions: over the counter, no prescription needed. aspirin 81 MG tablet,delayed release (DR/EC) 81 mg PO BID Qty: 0 0RF Hold Instructions: Until directed to restart by gastroenterology Rx Instructions: twice daily for 28 days (through 08/20) then resume daily dosing thereafter. oxycodone-acetaminophen [Percocet] 5-325 mg tablet 1 tab PO Q6H PRN (Reason: pain) 3 Days Qty: 12 0RF Ensure Plus High Protein 0.08 gram-1.5 kcal/mL Liquid 120 ml PO 4X/DAY Qty: 237 0RF ipratropium-albuterol 0.5 mg-3 mg(2.5 mg base)/3 mL Solution For Nebulization 3 ml inhalation Q6HWA.RT Qty: 0 0RF pantoprazole [Protonix] 40 mg tablet,delayed release (DR/EC) 40 mg PO BID Qty: 60 0RF Primary Care Provider: Zachary Vargas Chi Referrals: Zachary Vargas Chi, MD [Primary Care Provider] - Disposition Disposition: Acute Care Hospital [facility]
[2022-10-05 16:49] LABS: Absolute Lymphocyte Count 2.91 X10^3/uL (0.83-4.51); Absolute Neutrophil Count 4.4 X10^3/uL (2.0-7.7); Basophil# 0.09 X10^3/uL; Eosinophil# 0.18 X10^3/uL; Eosinophils% 2.1 % (0-5); Hematocrit 36.8 % (37-47); Hemoglobin 10.9 g/dL (12.0-15.0); Lymphocyte # 2.91 X10^3/ul (0.83-4.51); Lymphocyte % 33.7 % (19-41); Mean Corp Hgb Conc 29.6 g/dL (32-36); Mean Corpuscular Hgb 25.5 pg (27.0-32.0); Monocyte# 1.06 X10^3/uL; Monocyte% 12.3 % (0-10); NRBC Flagged by Analyzer 0 % (0-5); Neutrophil # 4.39 X10^3/uL (2.7-7.7); Neutrophil % 50.8 % (47-70); Platelet Count 486 K/mm3 (150-450); RBC Distribution Width CV 18.2 % (11.6-14.6); RBC Distribution Width SD 57.2 fl (35.1-43.9); Red Blood Count 4.28 M/mm3 (4.2-5.4); White Blood Count 8.6 K/mm3 (4.4-11.0)
[2022-10-05 17:28] VITALS: BP 102/69; PULSE 102; RESP 18; TEMP 37; O2SAT 97
--- NOTE | 2022-10-05 17:36 | HP.PCM.HOS_ITS ---
HPI - General General Date of Admission: 10/05/22 Date of Service: 10/05/22 Chief Complaint: Dysphagia, coughing with intake attempts. HPI Narrative The patient is a 62 y/o F w/ PMHx: GERD w/ Hx PUD, Hx CVA with chronic LUE weakness/contracture, Anxiety and Depression, COPD/Asthma, Tobacco, Hypothyroidism, HTN, HLD, Chronic anemia/Fe deficiency anemia, recent prolonged admission 08/15/22-08/27/22 following treatment and evaluation for acute GI bleed with incidental significant agitation with decreased responsiveness to acute medications with concern for aspiration with respiratory decompensation and eventual notable hypotension with PRBC administration and transiently required Levophed administration with a hemoglobin decreased down to 6.0 with treatment with Protonix drip, octreotide with EGD performed 08/25/2022 with a grade D e sophagitis with bleeding noted with biopsies taken with mucosal changes including ringed esophagus, longitudinal furrows, small caliber esophagus and white plaques in the middle third of the esophagus as well as the lower third of the esophagus with biopsies consistent with extensive ulceration and acute on chronic inflammation with granulation tissue reaction with an additional 1 unit PRBC administered 08/26/2022 for again a hemoglobin drop of 6.8 with ongoing oxygen usage requiring 4 to 6 L during her admission at that time with suspected chronic hypoxia and hypercapnia related to her COPD with discharged to skilled facility with plan at that time repeat CBC and BMP and if continued stable hemoglobin plan resumption of low-dose 81 mg daily aspirin who now represents to the [facility] ED on 10/05/22 with history of recent improvement with oral intake therefore apparently her feeding tube had been removed however unfortunately since transition to apparently skilled facility she has had ongoing progressive worsening dysphagia with choking every time she attempts to eat or drink prompting ED evaluation. From discussion with patient although difficult as well as family present at the facility she currently has been pur?ed texture diet with nectar thickened liquids and reportedly has no issues with breakfast but often her other meals. Work-up in the ED included T98.6, heart rate 102, BP 102/69, respiratory rate 18, 97% on room air, CBC with WC 8.6, hemoglobin 10.9, MCV 86, platelet 46 without marked shift, pending CMP upon requested evaluation of patient. [facility] Medical History Anemia Anxiety and depression Arthritis Asthma COPD (chronic obstructive pulmonary disease) Difficulty swallowing Emphysema lung Encounter for screening for malignant neoplasm of lung in current smoker with 30 pack year history or greater Esophageal thickening Gammopathy GERD (gastroesophageal reflux disease) History of back problems History of peptic ulcer Hyperlipidemia Hypothyroidism Iron deficiency anemia due to chronic blood loss Left hemiplegia Nicotine abuse Osteoporosis Polycythemia vera Thrombocytosis Tobacco use disorder, continuous Home Medications atorvastatin 40 mg tablet 40 mg PO DAILY cholesterol 12/26/18 [History Last Taken 07/21/20] doxepin 100 mg capsule 100 mg PO QHS depression 12/10/19 [History Last Taken 07/21/20] paroxetine HCl 20 mg tablet 20 mg PO DAILY depression 12/10/19 [History Last Taken 07/21/20] bupropion HCl (smoking deter) 150 mg tablet,12 hr sustained-release(smoking deterrent) 150 mg PO BID depression 05/20/20 [History Last Taken 07/22/20] ergocalciferol (vitamin D2) 1,250 mcg (50,000 unit) capsule 50,000 units PO QMONTH supplement 05/20/20 [History Last Taken 07/09/20] melatonin 10 mg tablet,extended release,multiphase 10 mg PO QHS sleep 05/20/20 [History Last Taken 07/21/20] famotidine 40 mg tablet 40 mg PO DAILY gerd 07/22/20 [History Last Taken Unknown] nicotine 7 mg/24 hr daily transdermal patch 7 mg TP DAILY smoking 07/22/20 [History Last Taken Unknown] acetaminophen 500 mg tablet 2 tab PO TID PRN Pain Or Fever #1 TAB 07/26/20 [Rx Last Taken Unknown] aspirin 81 mg tablet,delayed release 81 mg PO BID health maintenance ##0 07/26/20 [Rx Last Taken 07/18/20] potassium chloride 20 mEq oral packet (Klor-Con) 20 meq PO DAILY 03/06/22 [History Last Taken Unknown] oxycodone-acetaminophen 5 mg-325 mg tablet (Percocet) 1 tab PO Q6H PRN pain 3 days #12 tabs 05/30/22 [Rx Last Taken Unknown] food supplemt, lactose-reduced 0.08 gram-1.5 kcal/mL oral liquid (Ensure Plus High Protein) 120 ml PO 4X/DAY #237 mL 08/27/22 [Rx Last Taken Unknown] ipratropium 0.5 mg-albuterol 3 mg (2.5 mg base)/3 mL nebulization soln 3 ml inhalation Q6HWA.RT #0 mL 08/27/22 [Rx Last Taken Unknown] pantoprazole 40 mg tablet,delayed release (Protonix) 40 mg PO BID #60 tabs 08/27/22 [Rx Last Taken Unknown] Allergy/AdvReac Type Severity Reaction Status Date / Time No Known Allergies Allergy Verified 10/05/22 16:15 Family History Mother Diabetes Cancer Surgical History History of right knee surgery right ankle surgery Social History (Updated 10/05/22 @ 17:[address] Alissa Farley MD) household members: none housing: [facility] Smoking Status: Current every day smoker tobacco type: cigarettes alcohol intake: never substance use type: former substance user and marijuana ROS ROS Narrative Admission Review of Systems: CONSTITUTIONAL: No weight loss, fever, chills, + weakness or fatigue. HEENT: Eyes: No visual loss, blurred vision, double vision or yellow sclerae. Ears, Nose, Throat: No hearing loss, sneezing, congestion, runny nose or sore throat. SKIN: No rash or itching, lesions, wounds. CARDIOVASCULAR: No chest pain, chest pressure or chest discomfort, palpitations, edema, orthopnea, syncopal events. RESPIRATORY: No shortness of breath, cough or sputum, wheezing, hemoptysis. GASTROINTESTINAL: + coughing fits frequently with attempted oral intake, No anorexia, nausea, vomiting, abdominal pain, constipation, diarrhea, melena, BRBPR. GENITOURINARY: No dysuria, frequency, urgency or retention. NEUROLOGICAL: + Hx prior CVA w/ L sided hemiplegia, contracture, worsening dysphagia, No headache, dizziness, syncope, change in bowel or bladder control, seizure. MUSCULOSKELETAL: + muscle, back pain, joint pain or stiffness. HEMATOLOGIC: + anemia, bleeding or bruising. LYMPHATICS: No enlarged nodes. No history of splenectomy. PSYCHIATRIC: + history of depression or anxiety. ENDOCRINOLOGIC: No reports of sweating, cold or heat intolerance. No polyuria or polydipsia. ALLERGIES: + history of asthma, rhinitis. Vital Signs Vital Signs Vital Signs: 10/05/22 15:58 10/05/22 16:18 10/05/22 17:28 Temperature 98.6 F 98.6 F Temperature Source Oral Oral Pulse Rate 102 H 102 H Respiratory Rate 18 18 Respiratory Effort Normal Non-Labored Respiratory Pattern Normal Blood Pressure 102/69 102/69 Blood Pressure Mean 80 80 Pulse Ox 97 97 Oxygen Delivery Method Room Air Room Air Weight Weight: 110 lb 7.225 oz Body Mass Index (BMI) 21.5 Physical Exam Narrative Physical Examination: General: Awake, alert, oriented to self, place and recent events but notable difficulties with speech chronically secondary to CVA history, following commands/cooperative, seated upright in the ED bed, fatigued, NAD. Skin: Normal color, normal turgor, no icterus, no cyanosis except for very staged ecchymoses. HEENT: AT/NC, EOMI, PERRLA, mildly dry MM, no carotid bruits or JVD noted. Lungs: Diminished, greater bases, mildly increased respiratory rate but no distress no rales, ronchi or wheezing. Heart: Mildly tachycardic with regular rhythm; no gallop, rub audible. Abdomen: Soft, NTTP, ND, hyperactive BS, no HSM. Extremities: No cyanosis, clubbing, or edema, evidence muscle loss. Neurological: Patient awake, alert, oriented as noted, cognitive function per discussion with family present appears baseline intact; pupils equally reactive to light and accommodation, cranial nerves grossly normal, LUE with chronic contracture, able to have some movement at shoulder but prior CVA w/ chronic L sided hemiplegia, chronic dysarthria, stuttered speech. Psychiatric: Affect appears fatigued, no acute evidence of depressive or anxiety feelings. Results Lab / Micro Data Result Diagrams: 10/05/22 16:40 10/05/22 17:11 Labs: Laboratory Results - last 24 hr 10/05/22 16:40: WBC 8.6, RBC 4.28, Hgb 10.9 L, Hct 36.8 L, MCV 86.0, MCH 25.5 L, MCHC 29.6 L, RDW Std Deviation 57.2 H, RDW Coeff of Jeanine 18.2 H, Plt Count 486 H, MPV 10.0, Immature Gran % (Auto) 0.100, Neut % (Auto) 50.8, Lymph % (Auto) 33.7, Owen % (Auto) 12.3 H, Eos % (Auto) 2.1, Baso % (Auto) 1.0, Absolute Neuts (auto) 4.4, Absolute Lymphs (auto) 2.91, Nucleated RBC % 0 10/05/22 16:40: Sodium Cancelled, Potassium Cancelled, Chloride Cancelled, Carbon Dioxide Cancelled, Anion Gap Cancelled, BUN Cancelled, Creatinine Cancelled, Estim Creat Clear Calc Cancelled, Est GFR (MDRD) Af Amer Cancelled, Est GFR (MDRD) Non-Af Cancelled, BUN/Creatinine Ratio Cancelled, Glucose Cancelled, Calcium Cancelled Assessment & Plan Assessment/Plan (1) Dysphagia: PLAN: Plan The patient is a 62 y/o F w/ PMHx: GERD w/ Hx PUD, Hx CVA with chronic LUE weakness/contracture, Anxiety and Depression, COPD/Asthma, Tobacco, Hypothyro idism, HTN, HLD, Chronic anemia/Fe deficiency anemia, recent prolonged admission 08/15/22-08/27/22 following treatment and evaluation for acute GI bleed who now represents to the [facility] ED on 10/05/22 with history of recent improvement with oral intake therefore apparently her feeding tube had been removed however unfortunately since transition to apparently skilled facility she has had ongoing progressive worsening dysphagia with choking every time she attempts to eat or drink prompting ED evaluation. #1. Hx CVA with significantly worsening concern for dysphagia, unsafe oral intake with need for G-tube placement: Patient status post significant CVA with left-sided upper extremity contractures and mild hemiplegia, held aspirin prior to recent presentation with GI bleed admission but given stable hemoglobin had been restarted, holding aspirin, statin regimen given unsafe oral intake, will admit to medical surgical floor, maintain on aspiration precautions, request PT therapy evaluation, continue gastroenterology consultation with planned a.m. G- tube placement. 10/02/22 CXR without acute findings per SNF report. Will repeat upon admission to be cautious but no recent increased dyspnea or fever complaints of note. #2. Recent GI bleed, upper with acute blood loss anemia and associated hemorrhagic shock: Admission hgb 10.9, prior to this 10/02/2022 hemoglobin 9.8, stable, continue PPI once appropriate oral intake safe with pending G-tube per Dr. Negrete, instructor of sociology. #4. Hypertension: Noted history, BP low normal range, as needed IV hydralazine if necessary #5. Hyperlipidemia: Temporarily holding oral statin given need for G-tube as noted. #6. Anxiety and depression: Temporarily holding oral paroxetine, bupropion as well as doxepin home regimen given need for G-tube as noted. #7. Chronic COPD/asthma: Not on routine inhalers, will have PRN albuterol, HOB, IS parameters. #8. Tobacco Abuse: Encouraged cessation, inpatient consultation per RT, NR if desired. #9. Chronic cannabis usage: Patient admits to routine heavy cannabis usage chronically but has not since transition to skilled. #10. Hypothyroidism: Temporarily holding oral levothyroxine regimen given need for G-tube as noted. #11. Severe protein calorie malnutrition: Evidenced by reduced BMI and obvious muscle and fat loss, nutrition consulted. #12. DVT prophylaxis: SCDs, hold chemoprophylaxis given recent GI bleed and planned G-tube placement. #13. CODE STATUS: Full code. Charges/Coding Visit Charges OBSV E&M: 53644 Initial observation care L2
[2022-10-05 17:40] LABS: ALB/GLOB Ratio 0.8 RATIO (0.9-2.4); AST(SGOT) 21 U/L (15-37); Alanine Aminotransfer ALT/SGPT 19 U/L (13-56); Alkaline Phosphatase 121 U/L (45-117); Anion Gap 6 (5-15); BUN 19 mg/dL (7-18); BUN/Creat Ratio 23.9 RATIO (10-20); Calcium,Total 8.7 mg/dL (8.5-10.1); Chloride 107 mmol/L (98-107); EST Glomerular Filtration Rate 78 mL/min (>60); Est Glom Filt Rate - Afr Amer 94 mL/min (>60); Estimated Creatinine Clearance 53.04 ml/min; Globulin 3.7 g/dL (2.2-4.2); Glucose 84 mg/dL (74-106); Potassium 4.8 mmol/L (3.5-5.1); Protein, Total 6.7 g/dL (6.4-8.2); Sodium Level 140 mmol/L (136-145)
[2022-10-05 18:13] LABS: Magnesium 2.2 mg/dL (1.6-2.6); Phosphorus 4.2 mg/dL (2.5-4.9)
[2022-10-05 18:42] VITALS: BP 114/69; PULSE 85; RESP 18; O2SAT 96
[2022-10-05 19:30] VITALS: BP 121/73; PULSE 105; RESP 18; TEMP 37.6; O2SAT 94
[2022-10-05 19:36] VITALS: BMI 19.8
[2022-10-05] MEDS: 0.9% Saline Lock 10 ML Syringe IV (20:10)
[2022-10-05] MEDS: 0.9% Normal Saline 1,000 ML 100 ML IV (20:45)
[2022-10-05 21:26] VITALS: BP 118/74; PULSE 94; RESP 18; TEMP 36.8; O2SAT 94
--- NOTE | 2022-10-05 23:00 | CON.PCM_ITS ---
Assessment & Plan Assessment/Plan (1) Aspiration into airway: PLAN: She is consented to undergo temporary and possible permanent PEG tube placement endoscopically. She was explained alternatives, risk, benefits include not withstanding bleeding, infection, sepsis, perforation, need for emergency or . She will have an ASA of 3. I will give her Levaquin 500 mg IV prior to procedure. (2) History of GI bleed: PLAN: We will also evaluate upper GI tract as she has a recent history of upper GI bleed. HPI Consult Data Date of Consult: 10/05/22 HPI Narrative Reason for Consultation: Aspiration pneumonia HPI Narrative: ALISTAIR MUELLER, is a 62 F who presented to the ED after having repeat episodes of vomiting with recurrent aspirations. She has a history of recurrent aspirations requiring PEG tube in the past. She had a PEG tube removed and was doing well until recently when she developed more worsening problems with esophageal dysphagia and aspiration. I saw her approximately 2 months ago when she came into the hospital with an acute upper GI bleed. She was discovered to have severe erosive esophagitis with eosinophilic esophagitis and multiple rings in esophagus. She was also discovered to have a Leena-Shen tear. Those were. And she had mild dilation done to the upper esophagus. She was doing well until recently she developed again coughing postprandially and was diagnosed with aspiration ammonia. I was contacted in order for PEG tube placement. [facility] Medical History Anemia Anxiety and depression Arthritis Asthma COPD (chronic obstructive pulmonary disease) Difficulty swallowing Emphysema lung Encounter for screening for malignant neoplasm of lung in current smoker with 30 pack year history or greater Esophageal thickening Gammopathy GERD (gastroesophageal reflux disease) History of back problems History of peptic ulcer Hyperlipidemia Hypothyroidism Iron deficiency anemia due to chronic blood loss Left hemiplegia Nicotine abuse Osteoporosis Polycythemia vera Thrombocytosis Tobacco use disorder, continuous Home Medications atorvastatin 40 mg tablet 40 mg PO DAILY cholesterol 12/26/18 [History Last Taken 10/04/22] doxepin 100 mg capsule 100 mg PO QHS depression 12/10/19 [History Last Taken 10/04/22] paroxetine HCl 20 mg tablet 20 mg PO DAILY depression 12/10/19 [History Last Taken 10/05/22] bupropion HCl (smoking deter) 150 mg tablet,12 hr sustained-release(smoking deterrent) 150 mg PO BID depression 05/20/20 [History Last Taken 10/05/22] ergocalciferol (vitamin D2) 1,250 mcg (50,000 unit) capsule 50,000 units PO QMONTH supplement 05/20/20 [History Last Taken 09/28/22] famotidine 40 mg tablet 40 mg PO DAILY gerd 07/22/20 [History Last Taken 10/04/22] potassium chloride 20 mEq oral packet (Klor-Con) 40 meq PO DAILY HYPOKALEMIA 03/06/22 [History Last Taken 10/05/22] oxycodone-acetaminophen 5 mg-325 mg tablet (Percocet) 1 tab PO Q6H PRN pain 3 days #12 tabs 05/30/22 [Rx Last Taken 10/04/22 20:12] acetaminophen 500 mg tablet 2 tab PO Q8H PRN Pain 10/05/22 [History Last Taken 09/23/22] food supplemt, lactose-reduced 0.08 gram-1.5 kcal/mL oral liquid (Ensure Plus High Protein) 120 ml PO 4X/DAY SUPPLEMENT 10/05/22 [History Last Taken 10/05/22] levothyroxine 25 mcg tablet 25 mcg PO DAILY THYROID 10/05/22 [History Last Taken 10/05/22] melatonin 5 mg tablet 10 mg PO QHS INSOMNIA 10/05/22 [History Last Taken ] multivitamin 1 tab PO DAILY HEALTH MAINTENANCE 10/05/22 [History Last Taken 10/05/22] pantoprazole 40 mg granules delayed-release for susp in packet 40 mg PO BID GERD 10/05/22 [History Last Taken 10/05/22] Allergy/AdvReac Type Severity Reaction Status Date / Time No Known Allergies Allergy Verified 10/05/22 16:15 Family History Mother Diabetes Cancer Surgical History History of right knee surgery right ankle surgery Social History (Updated 10/05/22 @ 17:[address] Alissa Farley MD) household members: none housing: intermediate Smoking Status: Current every day smoker tobacco type: cigarettes alcohol intake: never substance use type: former substance user and marijuana ROS ROS Narrative Admission Review of Systems: CONSTITUTIONAL: No weight loss, fever, chills, + weakness or fatigue. HEENT: Eyes: No visual loss, blurred vision, double vision or yellow sclerae. Ears, Nose, Throat: No hearing loss, sneezing, congestion, runny nose or sore throat. SKIN: No rash or itching, lesions, wounds. CARDIOVASCULAR: No chest pain, chest pressure or chest discomfort, palpitations, edema, orthopnea, syncopal events. RESPIRATORY: No shortness of breath, cough or sputum, wheezing, hemoptysis. GASTROINTESTINAL: + coughing fits frequently with attempted oral intake, No anorexia, nausea, vomiting, abdominal pain, constipation, diarrhea, melena, BRBPR. GENITOURINARY: No dysuria, frequency, urgency or retention. NEUROLOGICAL: + Hx prior CVA w/ L sided hemiplegia, contracture, worsening dysphagia, No headache, dizziness, syncope, change in bowel or bladder control, seizure. MUSCULOSKELETAL: + muscle, back pain, joint pain or stiffness. HEMATOLOGIC: + anemia, bleeding or bruising. LYMPHATICS: No enlarged nodes. No history of splenectomy. PSYCHIATRIC: + history of depression or anxiety. ENDOCRINOLOGIC: No reports of sweating, cold or heat intolerance. No polyuria or polydipsia. ALLERGIES: + history of asthma, rhinitis. Physical Exam Const alert, oriented x3 and no apparent distress Constitutional Narrative: Patient is cachectic appearing and appears much older than stated age General Appearance: cooperative, well kempt and well developed Orientation / Consciousness: awake, oriented to person, oriented to place and oriented to time HEENT normocephalic, head/scalp atraumatic and moist oral mucous membranes Eyes PERRL, EOMs intact bilaterally and conjunctivae normal Neck supple, no JVD, thyroid normal and no carotid bruits General: trachea midline Resp normal respiratory effort, no retractions, no use of accessory muscles and clear to auscultation bilaterally Auscultation: Negative for rales, rhonchi or wheezes Cardio regular rate, regular rhythm, no murmurs, no rub and no gallops GI normal to inspection, nondistended, normoactive bowel sounds, soft to palpation, non-tender and non-distended Extremity Extremity Narrative: Patient has a left arm contraction Skin no rashes or lesions noted General Skin Exam: no breakdown Neuro oriented x3, CN's II-XII intact bilaterally and no sensory deficits noted Sensorium / Orientation: awake, alert, oriented to person and oriented to place Speech: speech normal Psych affect normal Medical Records Data Medical Nutrition Assessment Dietitian: Malnutrition Criteria Met Start: 10/06/22 14:38 Freq: Status: Active Protocol: Document 10/06/22 14:38 RMA (Rec: 10/06/22 14:38 RMA [id number]) Nutrition Malnutrition Evidence of Malnutrition Exists Yes Malnutrition (severe): Acute Illness/Injury Evidenced By Suboptimal Energy Intake ( Severe),Weight Loss (Severe), Physical Changes (Severe) Intake Problem Inadequate Oral Intake Etiology related to difficulty swallowing and unsafe for PO nutrition Signs/Symptoms as evidenced by NPO and plan for PEG placement Status Active Problem Clinical Problem Acute Disease or Injury Related Malnutrition Etiology Severe protein-calorie malnutrition in the context of acute illness/debility related to inability to swallow and inadequate oral intake Signs/Symptoms as evidenced by ~14% wt loss in less than 6 months, BMI 19. 9, NPO/inability to take adequate PO, oral intake meeting less than 50% estimated nutrition needs x past 6 months and severe muscle/fat wasting in the orbitals, clavicle, face, shoulders, arms and legs Status Active Problem Recommendation Dietitian Recommendations/Changes NPO and PEG TF to meet~100% estimated nutrition needs for repletion of calories/protien. Monitor closely for signs/ symptoms of refeeding syndrome given sever malnutrition. Recommend PEG TF of Jevity 1.5 Alexander bolus feedings to start with 120 ml Jevity 1.5 Alexander for the first 3-4 feedings and increase as tolerated to goal of 240 ml Jevity 1.5 Alexander bolus 4 times per day with 100 ml water flush before and after each bolus. TF at goal with water flushes will provide 1440 kcal, 61 gm protein and 1530 ml free water per day. Lab / Micro Data Result Diagrams: 10/06/22 04:31 10/06/22 04:31 Labs: Laboratory Results - last 24 hr 10/05/22 16:40: WBC 8.6, RBC 4.28, Hgb 10.9 L, Hct 36.8 L, MCV 86.0, MCH 25.5 L, MCHC 29.6 L, RDW Std Deviation 57.2 H, RDW Coeff of Jeanine 18.2 H, Plt Count 486 H, MPV 10.0, Immature Gran % (Auto) 0.100, Neut % (Auto) 50.8, Lymph % (Auto) 33.7, Lincoln % (Auto) 12.3 H, Eos % (Auto) 2.1, Baso % (Auto) 1.0, Absolute Neuts (auto) 4.4, Absolute Lymphs (auto) 2.91, Nucleated RBC % 0 10/05/22 16:40: Sodium Cancelled, Potassium Cancelled, Chloride Cancelled, Carbon Dioxide Cancelled, Anion Gap Cancelled, BUN Cancelled, Creatinine Cancelled, Estim Creat Clear Calc Cancelled, Est GFR (MDRD) Af Amer Cancelled, Est GFR (MDRD) Non-Af Cancelled, BUN/Creatinine Ratio Cancelled, Glucose Cancelled, Calcium Cancelled 10/05/22 17:11: Sodium 140, Potassium 4.8, Chloride 107, Carbon Dioxide 27.0, Anion Gap 6, BUN 19 H, Creatinine 0.80, Estim Creat Clear Calc 53.04, Est GFR (MDRD) Af Amer 94, Est GFR (MDRD) Non-Af 78, BUN/Creatinine Ratio 23.9 H, Glucose 84, Calcium 8.7, Total Bilirubin 0.30, AST 21, ALT 19, Alkaline Phosphatase 121 H, Total Protein 6.7, Albumin 3.0 L, Globulin 3.7, Albumin/Gl obulin Ratio 0.8 L 10/05/22 17:11: Phosphorus 4.2, Magnesium 2.2 10/06/22 04:31: WBC 9.0, RBC 3.98 L, Hgb 10.4 L, Hct 34.5 L, MCV 86.7, MCH 26.1 L, MCHC 30.1 L, RDW Std Deviation 55.7 H, RDW Coeff of Jeanine 17.5 H, Plt Count 399, MPV 9.7, Immature Gran % (Auto) 0.200, Neut % (Auto) 56.2, Lymph % (Auto) 29.4, Lincoln % (Auto) 11.1 H, Eos % (Auto) 2.1, Baso % (Auto) 1.0, Absolute Neuts (auto) 5.1, Absolute Lymphs (auto) 2.65, Nucleated RBC % 0 10/06/22 04:31: Sodium 140, Potassium 3.9, Chloride 109 H, Carbon Dioxide 26.0, Anion Gap 5, BUN 12, Creatinine 0.66, Estim Creat Clear Calc 64.30, Est GFR (MDRD) Af Amer 116, Est GFR (MDRD) Non-Af 96, BUN/Creatinine Ratio 18.0, Glucose 85, Calcium 8.4 L, Total Bilirubin 0.40, AST 13 L, ALT 17, Alkaline Phosphatase 120 H, Total Protein 6.2 L, Albumin 2.8 L, Globulin 3.4, Albumin/Globulin Ratio 0.8 L 10/06/22 04:31: PT 13.0, INR 1.0, APTT 29.8 10/06/22 04:31: TSH 2.66 Radiology Impression Chest X-Ray 10/06/22 07:13 IMPRESSION: Mild peribronchial thickening as can be seen with bronchitis / bronchiolitis No radiographic evidence of consolidative pneumonia or florid edema. Electronically Signed: Yuan Perales MD at 7:35 EST , Charges/Coding Visit Charges Inpatient E&M: 37738 Init Hosp L2
[2022-10-06] VITALS (8 sets, daily range): BP systolic 103–124; BP diastolic 62–84; PULSE 89–96; RESP 14–18; TEMP 36.1–37.5; O2SAT 93–98
[2022-10-06 04:49] LABS: Absolute Lymphocyte Count 2.65 X10^3/uL (0.83-4.51); Absolute Neutrophil Count 5.1 X10^3/uL (2.0-7.7); Basophil# 0.09 X10^3/uL; Eosinophil# 0.19 X10^3/uL; Eosinophils% 2.1 % (0-5); Hematocrit 34.5 % (37-47); Hemoglobin 10.4 g/dL (12.0-15.0); Lymphocyte # 2.65 X10^3/ul (0.83-4.51); Lymphocyte % 29.4 % (19-41); Mean Corp Hgb Conc 30.1 g/dL (32-36); Mean Corpuscular Hgb 26.1 pg (27.0-32.0); Mean Corpuscular Volume 86.7 fL (81-99); Mean Platelet Vol. 9.7 fl (6.2-12.0); Monocyte% 11.1 % (0-10); NRBC Flagged by Analyzer 0 % (0-5); Neutrophil # 5.07 X10^3/uL (2.7-7.7); Neutrophil % 56.2 % (47-70); Platelet Count 399 K/mm3 (150-450); RBC Distribution Width CV 17.5 % (11.6-14.6); RBC Distribution Width SD 55.7 fl (35.1-43.9); Red Blood Count 3.98 M/mm3 (4.2-5.4)
[2022-10-06 05:01] LABS: Partial Thromboplast Time 29.8 Seconds (24.1-36.2)
[2022-10-06 05:16] LABS: ALB/GLOB Ratio 0.8 RATIO (0.9-2.4); AST(SGOT) 13 U/L (15-37); Alanine Aminotransfer ALT/SGPT 17 U/L (13-56); Albumin, Serum 2.8 g/dL (3.2-5.0); Alkaline Phosphatase 120 U/L (45-117); Anion Gap 5 (5-15); BUN 12 mg/dL (7-18); Calcium,Total 8.4 mg/dL (8.5-10.1); Chloride 109 mmol/L (98-107); Creatinine, Serum 0.66 mg/dL (0.55-1.02); EST Glomerular Filtration Rate 96 mL/min (>60); Est Glom Filt Rate - Afr Amer 116 mL/min (>60); Globulin 3.4 g/dL (2.2-4.2); Glucose 85 mg/dL (74-106); Potassium 3.9 mmol/L (3.5-5.1); Protein, Total 6.2 g/dL (6.4-8.2); Sodium Level 140 mmol/L (136-145)
[2022-10-06] MEDS: 0.9% Normal Saline 1,000 ML 100 ML IV ×2 (05:37→17:25)
--- NOTE | 2022-10-06 06:00 | EKG12_ITS ---
Test Reason : AM EKG Blood Pressure : / mmHG Vent. Rate : 090 BPM Atrial Rate : 090 BPM P-R Int : 140 ms QRS Dur : 064 ms QT Int : 366 ms P-R-T Axes : 047 -47 050 degrees QTc Int : 447 ms Normal sinus rhythm Left axis deviation Low voltage QRS Septal infarct , age undetermined Abnormal ECG Confirmed by PENNY BARAJAS, ANGELA ([id number]), field map editor SHANNAN HCAVARRIA ([id number]) on 10/06/2022 11:07:29 AM Referred By: PATRICA Confirmed By:ANGELA FRANCIS MD
[2022-10-06 06:37] LABS: Thyroid Stim Hormone (TSH) 2.66 uIU/mL (0.358-3.74)
--- NOTE | 2022-10-06 07:13 | RAD_ITS ---
INDICATION: cough EXAMINATION/TECHNIQUE: X-RAY - XR Chest 1 View COMPARISON: 09/02/22. FINDINGS: LINES/DEVICES: None. LUNGS: No consolidation, edema or effusion. No pneumothorax. Mild bilateral peribronchial thickening. MEDIASTINUM AND CARDIOVASCULAR STRUCTURES: Cardiac silhouette not enlarged. Mild aortic atherosclerosis. BONES AND SOFT TISSUES: Sequela of prior bilateral rib fractures.. Osteopenia. RAD/Chest 1 View (Portable) IMPRESSION: Mild peribronchial thickening as can be seen with bronchitis / bronchiolitis No radiographic evidence of consolidative pneumonia or florid edema. Electronically Signed: Yuan Perales MD at 7:35 EST ,
--- NOTE | 2022-10-06 09:26 | CASEMGMT ---
Addendum entered by Mckenzie Pruitt 10/06/22 13:35: Arron returned call. Stated pt is a bed hold and good to return. Pt does not need precert to return. KOBI Ashby Addendum entered by Mckenzie Pruitt 10/06/22 09:30: SW called Arron at [facility] to confirm pt is okay to return. Left message requesting Arron call back to discuss. KOBI Ashby Original Note: Social Work? SW in to meet with pt following update from JOE COLES that pt came from [facility] nursing facility. SW? introduced self and role at the hospital. Pt agreeable to discussing discharge planning. A list of SNF providers including quality and resource use data and consistent with the patient?s preferred geographic region, medical needs, and insurance network was offered from the [facility] [facility]. Pt declined list, stated wants to return to [facility] when medically ready. SW to follow up with [facility] to ensure pt can return. PLAN: [facility], when medically ready.? KOBI Ashby?
--- NOTE | 2022-10-06 14:19 | PCM.PN.HOSP ---
Subjective Subjective Patient was seen and examined today, she is scheduled to undergo insertion of the PEG tube today, she has no questions for me at this time. Objective Data Objective Data Vital Signs: Vital Signs Temp Pulse Resp BP Pulse Ox O2 Del Method 99.4 F H 96 16 115/69 94 Room Air 10/06/22 13:51 10/06/22 13:51 10/06/22 13:51 10/06/22 13:51 10/06/22 13:51 10/06/22 13:51 Oxygen Delivery Method Room Air Weight: 46.2 kg Body Mass Index (BMI) 19.8 Intake & Output: Intake and Output for Last 24 Hours 10/04/22 10/05/22 10/06/22 23:59 23:59 23:59 Intake Total 175 / 175 901.67 / 901.67 Output Total 450 / 450 800 / 800 Balance -275 / -275 101.67 / 101.67 Lab / Micro Data Result Diagrams: 10/06/22 04:31 10/06/22 04:31 Labs: Laboratory Results - last 24 hr 10/05/22 16:40: WBC 8.6, RBC 4.28, Hgb 10.9 L, Hct 36.8 L, MCV 86.0, MCH 25.5 L, MCHC 29.6 L, RDW Std Deviation 57.2 H, RDW Coeff of Jeanine 18.2 H, Plt Count 486 H, MPV 10.0, Immature Gran % (Auto) 0.100, Neut % (Auto) 50.8, Lymph % (Auto) 33.7, Brantley % (Auto) 12.3 H, Eos % (Auto) 2.1, Baso % (Auto) 1.0, Absolute Neuts (auto) 4.4, Absolute Lymphs (auto) 2.91, Nucleated RBC % 0 10/05/22 16:40: Sodium Cancelled, Potassium Cancelled, Chloride Cancelled, Carbon Dioxide Cancelled, Anion Gap Cancelled, BUN Cancelled, Creatinine Cancelled, Estim Creat Clear Calc Cancelled, Est GFR (MDRD) Af Amer Cancelled, Est GFR (MDRD) Non-Af Cancelled, BUN/Creatinine Ratio Cancelled, Glucose Cancelled, Calcium Cancelled 10/05/22 17:11: Sodium 140, Potassium 4.8, Chloride 107, Carbon Dioxide 27.0, Anion Gap 6, BUN 19 H, Creatinine 0.80, Estim Creat Clear Calc 53.04, Est GFR (MDRD) Af Amer 94, Est GFR (MDRD) Non-Af 78, BUN/Creatinine Ratio 23.9 H, Glucose 84, Calcium 8.7, Total Bilirubin 0.30, AST 21, ALT 19, Alkaline Phosphatase 121 H, Total Protein 6.7, Albumin 3.0 L, Globulin 3.7, Albumin/Globulin Ratio 0.8 L 10/05/22 17:11: Phosphorus 4.2, Magnesium 2.2 10/06/22 04:31: WBC 9.0, RBC 3.98 L, Hgb 10.4 L, Hct 34.5 L, MCV 86.7, MCH 26.1 L, MCHC 30.1 L, RDW Std Deviation 55.7 H, RDW Coeff of Jeanine 17.5 H, Plt Count 399, MPV 9.7, Immature Gran % (Auto) 0.200, Neut % (Auto) 56.2, Lymph % (Auto) 29.4, Brantley % (Auto) 11.1 H, Eos % (Auto) 2.1, Baso % (Auto) 1.0, Absolute Neuts (auto) 5.1, Absolute Lymphs (auto) 2.65, Nucleated RBC % 0 10/06/22 04:31: Sodium 140, Potassium 3.9, Chloride 109 H, Carbon Dioxide 26.0, Anion Gap 5, BUN 12, Creatinine 0.66, Estim Creat Clear Calc 64.30, Est GFR (MDRD) Af Amer 116, Est GFR (MDRD) Non-Af 96, BUN/Creatinine Ratio 18.0, Glucose 85, Calcium 8.4 L, Total Bilirubin 0.40, AST 13 L, ALT 17, Alkaline Phosphatase 120 H, Total Protein 6.2 L, Albumin 2.8 L, Globulin 3.4, Albumin/Globulin Ratio 0.8 L 10/06/22 04:31: PT 13.0, INR 1.0, APTT 29.8 10/06/22 04:31: TSH 2.66 Radiography Diagnostic Testing: Radiology Impression Chest X-Ray 10/06/22 07:13 IMPRESSION: Mild peribronchial thickening as can be seen with bronchitis / bronchiolitis No radiographic evidence of consolidative pneumonia or florid edema. Electronically Signed: Yuan Perales MD at 7:35 EST , Physical Exam Const alert, oriented x3 and no apparent distress Constitutional Narrative: Patient is cachectic appearing and appears much older than stated age General Appearance: cooperative, well kempt and well developed Orientation / Consciousness: awake, oriented to person, oriented to place and oriented to time HEENT normocephalic, head/scalp atraumatic and moist oral mucous membranes Eyes PERRL, EOMs intact bilaterally and conjunctivae normal Neck supple, no JVD, thyroid normal and no carotid bruits General: trachea midline Resp normal respiratory effort, no retractions, no use of accessory muscles and clear to auscultation bilaterally Auscultation: Negative for rales, rhonchi or wheezes Cardio regular rate, regular rhythm, no murmurs, no rub and no gallops GI normal to inspection, nondistended, normoactive bowel sounds, soft to palpation, non-tender and non-distended Extremity Extremity Narrative: Patient has a left arm contraction Skin no rashes or lesions noted General Skin Exam: no breakdown Neuro oriented x3, CN's II-XII intact bilaterally and no sensory deficits noted Sensorium / Orientation: awake, alert, oriented to person and oriented to place Speech: speech normal Psych affect normal Assessment & Plan Assessment/Plan (1) Dysphagia: PLAN: Plan 1. Oropharyngeal dysphagia secondary to late effects from previous stroke-patient will have a PEG tube inserted today, she will be transferred back to her long-term care facility probably tomorrow. Patient will be seen by nutritional services while in the hospital. #2 cerebrovascular disease-complicates care, management, recovery, and prognosis #3 hypothyroidism-patient is on Synthroid #4 GERD-patient is on a PPI currently #5 hyperlipidemia-patient is on atorvastatin Charges/Coding Visit Charges OBSV E&M: 84713 Subsequent observation care L3
--- NOTE | 2022-10-06 14:45 | NURSING ---
pt to endo via bed
--- NOTE | 2022-10-06 14:51 | CHAPLAIN ---
Type of Pastoral Visit _x__ Initial Visit ___ Follow-up Visit ___ On-call Visit ___ General Patient Visit ___ Spiritual Assessment ___ Family Conference ___ Bereavement ___ Rapid Response ___ Code Blue ___ Other (describe below) Pastoral Care Referral From _x__ Patient ___ Family ___ Nurse ___ Physician ___ [place] Manager ___ Appian Bpm Developer ___ Other (describe below) Sacrament/Intervention _x__ Active listening ___ Anointing ___ Confucianism ___ Bereavement ___ Communion ___ Lulu exploration ___ _x__ Life review _x__ Prayer ___ Reconciliation ___ Sacrament of Sick ___ Supportive presence ___ Wedding ___ Other (describe below) Pastoral Comments patient and sister are in room; pt explains her situation since last admission; pt does feel better per her report and admits to issues with swallowing and coughing; pt welcomes prayer and states she prays a lot for herself;
[2022-10-06] MEDS: Lactated Ringers 1,000 ML 15 ML IV (15:20)
[2022-10-06] MEDS: levoFLOXacin IV 500 MG/100 ML BAG 100 MG IV (16:16)
--- NOTE | 2022-10-06 16:46 | OP.EGD_ITS ---
Patient Name: Carolyn Watt Procedure Date: 10/06/2022 4:10 PM Date of : 1960 Age: 62 Procedure: Upper GI endoscopy Indications: Dysphagia, Failure to respond to medical treatment, Place PEG due to aspiration risk Providers: Luis Negrete DO Medicines: Monitored Anesthesia Care Patient Profile: This is a 62 year old female. Refer to note in patient chart for documentation of history and physical. Patient has symptoms of dysphagia with both liquids and solids. Complications: No immediate complications. Procedure: Pre-Anesthesia Assessment: - Prior to the procedure, a History and Physical was performed, and patient medications and allergies were reviewed. The risks and benefits of the procedure and the sedation options and risks were discussed with the patient. All questions were answered and informed consent was obtained. Patient identification and proposed procedure were verified by the physician in the pre-procedure area. Mental Status Examination: alert and oriented. Airway Examination: normal oropharyngeal airway and neck mobility. Respiratory Examination: clear to auscultation. CV Examination: normal. Prophylactic Antibiotics: The patient does not require prophylactic antibiotics. Prior Anticoagulants: The patient has taken no previous anticoagulant or antiplatelet agents. ASA Grade Assessment: II - A patient with mild systemic disease. After reviewing the risks and benefits, the patient was deemed in satisfactory condition to undergo the procedure. The anesthesia plan was to use monitored anesthesia care (MAC). Immediately prior to administration of medications, the patient was re-assessed for adequacy to receive sedatives. The heart rate, respiratory rate, oxygen saturations, blood pressure, adequacy of pulmonary ventilation, and response to care were monitored throughout the procedure. The physical status of the patient was re-assessed after the procedure. After obtaining informed consent, the endoscope was passed under direct vision. Throughout the procedure, the patient's blood pressure, pulse, and oxygen saturations were monitored continuously. The gastroscope was introduced through the mouth, and advanced to the second part of duodenum. The upper GI endoscopy was accomplished without difficulty. The patient tolerated the procedure well. Moderate Sedation: Moderate (conscious) sedation was administered by the endoscopy nurse and supervised by the endoscopist. The following parameters were monitored: oxygen saturation, heart rate, blood pressure, and response to care. Scope In: 4:28:20 PM Scope Out: 4:41:01 PM Total Procedure Duration Time 0 hours 12 minutes 41 seconds Findings: The examined esophagus was normal. No gross lesions were noted in the entire examined stomach. The patient was placed in the supine position for PEG placement. The stomach was insufflated to appose gastric and abdominal layton. A site was located in the cardia with excellent transillumination for placement. The abdominal wall was marked and prepped in a sterile manner. The area was anesthetized with 1 mL of 0.5% lidocaine. The trocar needle was introduced through the abdominal wall and into the stomach under direct endoscopic view. A snare was introduced through the endoscope and opened in the gastric lumen. The guide wire was passed through the trocar and into the open snare. The snare was closed around the guide wire. The endoscope and snare were removed, pulling the wire out through the mouth. A skin incision was made at the site of needle insertion. The endoscopically removable 20 Fr Bard gastrostomy tube was lubricated. The G-tube was tied to the guide wire and pulled through the mouth and into the stomach. The trocar needle was removed, and the gastrostomy tube was pulled out from the stomach through the skin. The external bumper was attached to the gastrostomy tube, and the tube was cut to remove the guide wire. The final position of the gastrostomy tube was confirmed by relook endoscopy, and skin marking noted to be 4 cm at the external bumper. The final tension and compression of the abdominal wall by the PEG tube and external bumper were checked and revealed that the bumper was loose and not touching the skin. The feeding tube was capped, and the tube site cleaned and dressed. The first portion of the duodenum was normal. Impression: - Normal esophagus. - No gross lesions in the stomach. - Normal first portion of the duodenum. - An endoscopically removable PEG placement was successfully completed. - No specimens collected. Recommendation: - Discharge patient to home. - Resume previous diet. - Continue present medications. - Please follow the post-PEG recommendations including: Nutrition consult for formula and volume, external bolster 1 cm from abdominal wall, may place dressing under bumper after day 3 and may use PEG today for meds and water. Procedure Code(s): --- Professional --- 97303, Esophagogastroduodenoscopy, flexible, transoral; with directed placement of percutaneous gastrostomy tube CPT copyright 2017 [employer] [place] [employer]. All rights reserved. The codes documented in this report are preliminary and upon clothes drier assembler review may be revised to meet current compliance requirements. Luis Negrete DO 10/06/2022 4:45:52 PM This report has been signed electronically. Number of Addenda: 0 Note Initiated On: 10/06/2022 4:10 PM
--- NOTE | 2022-10-06 17:19 | NURSING ---
pt returned from endo
[2022-10-06] MEDS: Acetaminophen 650 MG Suppository RC (21:32)
[2022-10-07 02:43] VITALS: BP 120/70; PULSE 96; RESP 16; TEMP 36.4; O2SAT 93
[2022-10-07] MEDS: 0.9% Normal Saline 1,000 ML 100 ML IV ×2 (02:47→12:15)
[2022-10-07 07:19] VITALS: O2SAT 94
[2022-10-07 08:24] VITALS: O2SAT 92
--- NOTE | 2022-10-07 08:52 | CASEMGMT ---
Addendum entered by Mckenzie Pruitt 10/07/22 11:47: Sarah from Dietary met with SW and shared that nutrition notes will be updated this morning. MOOSE faxed new notes to [facility] via [employer]. Original Note: Social Work [facility] requested nutrition notes for pt once PEG tube was placed yesterday. PEG was placed yesterday. MOOSE faxed nutrition notes to [facility] via [email or web address] at this time. PLAN: Return to [facility], when medically ready. KOBI Ashby
[2022-10-07 08:54] VITALS: BP 111/63; PULSE 100; RESP 18; TEMP 36.6; O2SAT 94
--- NOTE | 2022-10-07 11:33 | TREXTCAR_ITS ---
Diet Diet Order/Speech Therapy: 10/06/22 16:46 Diet: Pur?ed diet, nectar thickened liquids Is pt able to select menu?: YES Routine Orders/Code Status Code Status: Full Code Therapies Weight Bearing: Weight bearing as tolerated (With walker) Physical Therapy: Eval and Treat Occupational Therapy: Eval and Treat Speech Therapy: Eval and Treat Problem/Diagnosis (1) Aspiration into airway: Status: Acute Code(s): T17.908A - Unspecified foreign body in respiratory tract, part unspecified causing other injury, initial encounter (2) History of GI bleed: Status: Inactive Code(s): Z87.19 - Personal history of other diseases of the digestive system (3) Dysphagia: Status: Chronic Code(s): R13.10 - Dysphagia, unspecified Plan 1. 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 Patient will be seen by nutritional services while in the hospital. #2 cerebrovascular disease-complicates care, management, recovery, and prognosis #3 hypothyroidism-patient is on Synthroid #4 GERD-patient is on a PPI currently #5 hyperlipidemia-patient is on atorvastatin Allergies/Procedures Done in Hospital Allergies No Known Allergies Allergy (Verified 10/05/22 16:15) Procedures: Peg tube placement Type of Care/Length of Stay Estimated LOS: More Than 30 Days Type of Care Needed: Intermediate Rehab Potential: Good Prognosis: Good Additional Orders/Day of Discharge H&P will serve as current which was dated: 10/05/22 Day of Discharge: 10/07/22 Dietary and Speech Recommendations Dietitian Recommendations/Changes: NPO and PEG TF to meet~100% estimated nutrition needs for repletion of calories/protein. NURSE OUTREACH CASE MANAGER on consult to assess for safety of PO nutrition per JOE Iqbal---pending. Monitor closely for signs/symptoms of refeeding syndrome given sever malnutrition. Recommend TF via PEG of Jevity 1.5 Alexander bolus feedings to start with 120 ml Jevity 1.5 Alexander for the first 3-4 feedings and increase as tolerated to goal of 240 ml Jevity 1.5 Alexander bolus 4 times per day with 100 ml water flush before and after each bolus. TF at goal with water flushes will provide 1440 kcal, 61 gm protein and 1530 ml free water per day. Discharge Plan Admission Admit Date/Time: 10/05/22 17:50 Primary Reason for Your Visit: ASPIRATION Attending Provider: Cam Vee Primary Care Provider: Zachary Vargas Chi Consulting Providers: Alissa Farley Discharge Orders/Prescriptions Prescriptions: New Jevity 1.5 Alexander 0.06 gram-1.5 kcal/mL Liquid 240 ml G-tube 4X/DAY Qty: 0 0RF Continued atorvastatin 40 MG tablet 40 mg PO DAILY paroxetine HCl 20 MG tablet 20 mg PO DAILY doxepin 100 MG capsule 100 mg PO QHS Label Comments: TAKE 1 CAPSULE BY MOUTH ONCE DAILY AT BEDTIME ergocalciferol (vitamin D2) 1,250 mcg (50,000 unit) capsule 50,000 units PO QMONTH bupropion HCl (smoking deter) 150 mg tablet extended release 12 hr 150 mg PO BID multivitamin Tablet 1 tab PO DAILY levothyroxine 25 mcg Tablet 25 mcg PO DAILY pantoprazole [address] For Susp In Packet 40 mg PO BID melatonin 5 mg Tablet 10 mg PO QHS acetaminophen 500 MG tablet 2 tab PO Q8H PRN (Reason: Pain) Discontinued potassium chloride [Klor-Con] 20 mEq packet 40 meq PO DAILY famotidine 40 MG tablet 40 mg PO DAILY oxycodone-acetaminophen [Percocet] 5-325 mg tablet 1 tab PO Q6H PRN (Reason: pain) 3 Days Qty: 12 0RF Ensure Plus High Protein 0.08 gram-1.5 kcal/mL liquid 120 ml PO 4X/DAY Referrals / Follow Up: Zachary Vargas Chi, MD [Primary Care Provider] - Disposition Disposition (needs filled in before D/C Order can be placed): Senior Living Facility
[2022-10-07 14:25] VITALS: BP 115/74; PULSE 96; RESP 16; TEMP 36.6; O2SAT 93
[2022-10-07] MEDS: Jevity 1.5. 1,000 ML Bottle 240 ML GT ×2 (14:36→18:20)
[2022-10-07] MEDS: Acetaminophen 650 MG/20 ML UDC GT (14:37)
--- NOTE | 2022-10-07 15:22 | DS.PCM_ITS ---
Providers Date of Admission: 10/05/22 Date of Discharge: 10/07/22 Primary Care Physician: Dr. Zachary Vargas MD Consultations 10/05/22 19:34 Consult: Gastroenterology Routine Consulting Provider: [facility] Reason for Consult: Dysphagia, PEG tube consideration EMERGENT Consult: No MD Notified: Yes Date Notified: 10/05/22 Time Notified: 17:51 Method of Notification: ED Physician Initiated Reason For Visit: DYSPHAGIA, PEG TUBE NEEDED Diagnosis Discharge Diagnosis (1) Aspiration into airway: Status: Acute Code(s): T17.908A - Unspecified foreign body in respiratory tract, part unspecified causing other injury, initial encounter (2) Dysphagia: Status: Chronic Code(s): R13.10 - Dysphagia, unspecified Plan 1. 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 Patient will be seen by nutritional services while in the hospital. #2 cerebrovascular disease-complicates care, management, recovery, and prognosis #3 hypothyroidism-patient is on Synthroid #4 GERD-patient is on a PPI currently #5 hyperlipidemia-patient is on atorvastatin Medications at Discharge Home Medications atorvastatin 40 mg tablet 40 mg PO DAILY cholesterol 12/26/18 doxepin 100 mg capsule 100 mg PO QHS depression 12/10/19 paroxetine HCl 20 mg tablet 20 mg PO DAILY depression 12/10/19 bupropion HCl (smoking deter) 150 mg tablet,12 hr sustained-release(smoking deterrent) 150 mg PO BID depression 05/20/20 ergocalciferol (vitamin D2) 1,250 mcg (50,000 unit) capsule 50,000 units PO QMONTH supplement 05/20/20 acetaminophen 500 mg tablet 2 tab PO Q8H PRN Pain 10/05/22 levothyroxine 25 mcg tablet 25 mcg PO DAILY THYROID 10/05/22 melatonin 5 mg tablet 10 mg PO QHS INSOMNIA 10/05/22 multivitamin 1 tab PO DAILY HEALTH MAINTENANCE 10/05/22 pantoprazole 40 mg granules delayed-release for susp in packet 40 mg PO BID GERD 10/05/22 lactose-reduced food with fiber 0.06 gram-1.5 kcal/mL oral liquid (Jevity 1.5 Alexander) 240 ml G-tube 4X/DAY #0 mL 10/07/22 Hospital Course Operations None Procedures Peg tube placement Summary of Care Provided Minutes Spent on Discharge: 30 Hospital Course: 62-year-old white female was seen in the emergency room at [facility] after being sent in from a local extended care facility at which she resides due to concerns of aspiration. Patient has a past history of a stroke and has had a PEG tube in the past which was subsequently removed. Labs obtained in the emergency room were remarkable for hemoglobin of 10.9. Patient was placed in observation status on PCU, she was seen in consultation by gastroenterology and on 10/06/2022 a PEG tube inserted without difficulty. Speech therapy saw the patient in consultation as did nutritional services. On 10/07/2022, patient was seen and examinedalert, oriented x3 and no apparent distress Constitutional Narrative: Patient is cachectic appearing and appears much older than stated age General Appearance: cooperative, well kempt and well developed Orientation / Consciousness: awake, oriented to person, oriented to place and oriented to time HEENT normocephalic, head/scalp atraumatic and moist oral mucous membranes Eyes PERRL, EOMs intact bilaterally and conjunctivae normal Neck supple, no JVD, thyroid normal and no carotid bruits General: trachea midline Resp normal respiratory effort, no retractions, no use of accessory muscles and clear to auscultation bilaterally Auscultation: Negative for rales, rhonchi or wheezes Cardio regular rate, regular rhythm, no murmurs, no rub and no gallops GI normal to inspection, nondistended, normoactive bowel sounds, soft to palpation, non-tender and non-distended Extremity Extremity Narrative: Patient has a left arm contracture Skin no rashes or lesions noted General Skin Exam: no breakdown Neuro oriented x3, CN's II-XII intact bilaterally, patient has left upper extremity weakness, left foot is inverted. Sensorium / Orientation: awake, alert, oriented to person and oriented to place Speech: speech normal Psych affect normal Patient was discharged back to her long-term care facility in stable condition on 10/07/22. Medical Records Data Medical Nutrition Assessment Dietitian: Malnutrition Criteria Met Start: 10/06/22 14:38 Freq: Status: Active Protocol: Document 10/07/22 10:41 RMA (Rec: 10/07/22 10:41 RMA [id number]) Nutrition Malnutrition Evidence of Malnutrition Exists Yes Malnutrition (severe): Acute Illness/Injury Evidenced By Suboptimal Energy Intake ( Severe),Weight Loss (Severe), Physical Changes (Severe) Intake Problem Inadequate Oral Intake Etiology related to difficulty swallowing and unsafe for PO nutrition Signs/Symptoms as evidenced by NPO and plan for PEG placement Status Active Problem Clinical Problem Acute Disease or Injury Related Malnutrition Etiology Severe protein-calorie malnutrition in the context of acute illness/debility related to inability to swallow and inadequate oral intake Signs/Symptoms as evidenced by ~14% wt loss in less than 6 months, BMI 19. 9, NPO/inability to take adequate PO, oral intake meeting less than 50% estimated nutrition needs x past 6 months and severe muscle/fat wasting in the orbitals, clavicle, face, shoulders, arms and legs Status Active Problem Recommendation Dietitian Recommendations/Changes NPO and PEG TF to meet~100% estimated nutrition needs for repletion of calories/protein. TRANSPORTATION PLANNING TECHNICIAN on consult to assess for safety of PO nutrition per JOE Iqbal---pending. Monitor closely for signs/ symptoms of refeeding syndrome given sever malnutrition. Recommend TF via PEG of Jevity 1.5 Alexander bolus feedings to start with 120 ml Jevity 1.5 Alexander for the first 3-4 feedings and increase as tolerated to goal of 240 ml Jevity 1.5 Alexander bolus 4 times per day with 100 ml water flush before and after each bolus. TF at goal with water flushes will provide 1440 kcal, 61 gm protein and 1530 ml free water per day. Weight / BMI Weight Weight: 45.6 kg Body Mass Index (BMI) 19.8 ABG / Lab / Microbiology Data Result Diagrams: 10/06/22 04:31 10/06/22 04:31 Meaningful Use Info Meaningful Use Diagnoses (Choose all that apply): None applicable Discharge Plan Admission Admit Date/Time: 10/05/22 17:50 Primary Reason for Your Visit: ASPIRATION Attending Provider: Cam Vee Primary Care Provider: Zachary Vargas Chi Consulting Providers: Alissa Farley Discharge Orders/Prescriptions Prescriptions: New Jevity 1.5 Alexander 0.06 gram-1.5 kcal/mL Liquid 240 ml G-tube 4X/DAY Qty: 0 0RF Continued atorvastatin 40 MG tablet 40 mg PO DAILY paroxetine HCl 20 MG tablet 20 mg PO DAILY doxepin 100 MG capsule 100 mg PO QHS Label Comments: TAKE 1 CAPSULE BY MOUTH ONCE DAILY AT BEDTIME ergocalciferol (vitamin D2) 1,250 mcg (50,000 unit) capsule 50,000 units PO QMONTH bupropion HCl (smoking deter) 150 mg tablet extended release 12 hr 150 mg PO BID multivitamin Tablet 1 tab PO DAILY levothyroxine 25 mcg Tablet 25 mcg PO DAILY pantoprazole [address] For Susp In Packet 40 mg PO BID melatonin 5 mg Tablet 10 mg PO QHS acetaminophen 500 MG tablet 2 tab PO Q8H PRN (Reason: Pain) Discontinued potassium chloride [Klor-Con] 20 mEq packet 40 meq PO DAILY famotidine 40 MG tablet 40 mg PO DAILY oxycodone-acetaminophen [Percocet] 5-325 mg tablet 1 tab PO Q6H PRN (Reason: pain) 3 Days Qty: 12 0RF Ensure Plus High Protein 0.08 gram-1.5 kcal/mL liquid 120 ml PO 4X/DAY Referrals / Follow Up: Zachary Vargas Chi, MD [Primary Care Provider] - Disposition Disposition (needs filled in before D/C Order can be placed): [facility] Charges/Coding Visit Charges OBSV E&M: 16392 Observation care discharge
[2022-10-07 20:50] VITALS: BP 110/58; PULSE 101; RESP 18; TEMP 36.3; O2SAT 93
== END 2022-10-07 21:01 | disposition skilled nursing facility (03) ==
LOC: ED 17:27 → MS3 18:55
PROVIDERS: Anesthesiology; Internal Medicine Gastroenterology; Internal Medicine Hematology & Oncology; Admitting Provider Family Medicine; Emergency Provider Emergency Medicine; PCP Family Medicine Geriatric Medicine; Visit Provider Internal Medicine
PROC: 0DJ08ZZ Inspection of Upper Intestinal Tract, Via Natural or Artificial Opening Endoscopic (ICD-10-PCS; CPT 43235; principal; 2022-10-06 15:55)
DX: Z43.1 Encounter for attention to gastrostomy (principal); J69.0 Pneumonitis due to inhalation of food and vomit; I69.354 Hemiplegia and hemiparesis following cerebral infarction affecting left non-dominant side; J43.9 Emphysema, unspecified; D45 Polycythemia vera; R13.12 Dysphagia, oropharyngeal phase; I10 Essential (primary) hypertension; E78.5 Hyperlipidemia, unspecified; F17.210 Nicotine dependence, cigarettes, uncomplicated; Z79.82 Long term (current) use of aspirin; Z79.899 Other long term (current) drug therapy; I69.322 Dysarthria following cerebral infarction; K21.9 Gastro-esophageal reflux disease without esophagitis; F41.8 Other specified anxiety disorders; D50.0 Iron deficiency anemia secondary to blood loss (chronic); E03.9 Hypothyroidism, unspecified
CPT/HCPCS: 43246; 36415; 71045; 80053; 83735; 84100; 84443; 85025; 85610; 85730; 92610; 93005; 96361; 96365; 96366; 96367; 97110; 97162; 97166; 97535; 97802; 97803; 99218; 99251; 99285; J7030; J7120; A4216; G0378; G0463; J2405

== ENCOUNTER → 2022-10-12 | Outpatient (REF) | payer MEDICAID, SELFPAY ==
[2022-10-12 08:45] LABS: Hematocrit 37.3 % (37-47); Hemoglobin 11.2 g/dL (12.0-15.0); Mean Corpuscular Hgb 25.6 pg (27.0-32.0); Mean Corpuscular Volume 85.2 fL (81-99); Platelet Count 463 K/mm3 (150-450); RBC Distribution Width CV 17.5 % (11.6-14.6); RBC Distribution Width SD 54.7 fl (35.1-43.9); Red Blood Count 4.38 M/mm3 (4.2-5.4); White Blood Count 7.5 K/mm3 (4.4-11.0)
[2022-10-12 09:08] LABS: Anion Gap 3 (5-15); BUN 21 mg/dL (7-18); BUN/Creat Ratio 27.9 RATIO (10-20); Calcium,Total 9.1 mg/dL (8.5-10.1); Chloride 108 mmol/L (98-107); Creatinine, Serum 0.75 mg/dL (0.55-1.02); EST Glomerular Filtration Rate 83 mL/min (>60); Est Glom Filt Rate - Afr Amer 101 mL/min (>60); Glucose 111 mg/dL (74-106); Magnesium 2.3 mg/dL (1.6-2.6); Potassium 3.9 mmol/L (3.5-5.1); Sodium Level 139 mmol/L (136-145); Thyroid Stim Hormone (TSH) 2.34 uIU/mL (0.358-3.74)
[2022-10-12 09:14] LABS: Vitamin B12 417 pg/mL (211-911); Vitamin D,25 Hydroxy 81.4 ng/mL
== END | disposition home or self-care (01) ==
LOC: OLS.SW 04:00
PROVIDERS: PCP Family Medicine Geriatric Medicine; Referring Provider Internal Medicine; Visit Provider Internal Medicine
DX: I10 Essential (primary) hypertension (principal); E43 Unspecified severe protein-calorie malnutrition; E03.9 Hypothyroidism, unspecified
CPT/HCPCS: 36415; 80048; 82306; 82607; 83735; 84443; 85027

== ENCOUNTER 2022-10-22 11:38 | Emergency (ER) | payer MEDICAID, SELFPAY ==
[2022-10-22 11:40] VITALS: BP 131/90; PULSE 102; RESP 16; TEMP 37.2; O2SAT 96; BMI 20.9
--- NOTE | 2022-10-22 12:52 | ED.VIS.GI ---
HPI HPI - GI History of Present Illness Chief Complaint: Nausea/Vomiting Informant: patient Abdominal Pain/Flank Pain Onset: Today and Yesterday Context: Gradual Onset Timing: Intermittent Quality: Cramping Location: Diffuse Current Severity: Mild Maximum Severity: Mild Worsened by: Nothing Relieved by: Nothing Nausea/Vomiting/Emesis GI Symptom: Positive for Nausea and Vomiting Onset: Today and Yesterday Severity: Mild Diarrhea/Melena/Hematochezia GI Symptom: Negative for Diarrhea, Melena or Hematochezia Associated Symptoms Associated Symptoms: Negative for Dysuria, Frequency or Hematuria Narrative Narrative: 62-year-old female history of prior stroke with left arm paralysis and left leg weakness. Prior GI bleed secondary to gastritis. She has a PEG tube. Has a history of anemia. Currently she is in [facility]. States yesterday she started having nausea and vomiting. Diffuse abdominal cramping. States she has had some constipation and limited bowel movements for last 2 days. She had a PEG feeding tube placed within the last 2 weeks. Denies any fever. No dysuria. No hematemesis or melena. Prior similar symptoms: Yes Recent Illness/Hospitalization: No PFSH PFSH Medical History Anemia Anxiety and depression Arthritis Asthma COPD (chronic obstructive pulmonary disease) Difficulty swallowing Emphysema lung Encounter for screening for malignant neoplasm of lung in current smoker with 30 pack year history or greater Esophageal thickening Gammopathy GERD (gastroesophageal reflux disease) History of back problems History of peptic ulcer Hyperlipidemia Hypothyroidism Iron deficiency anemia due to chronic blood loss Left hemiplegia Nicotine abuse Osteoporosis Polycythemia vera Thrombocytosis Tobacco use disorder, continuous Home Medications atorvastatin 40 mg tablet 40 mg PO DAILY cholesterol 12/26/18 [History Last Taken 10/04/22] doxepin 100 mg capsule 100 mg PO QHS depression 12/10/19 [History Last Taken 10/04/22] paroxetine HCl 20 mg tablet 20 mg PO DAILY depression 12/10/19 [History Last Taken 10/05/22] bupropion HCl (smoking deter) 150 mg tablet,12 hr sustained-release(smoking deterrent) 150 mg PO BID depression 05/20/20 [History Last Taken 10/05/22] ergocalciferol (vitamin D2) 1,250 mcg (50,000 unit) capsule 50,000 units PO QMONTH supplement 05/20/20 [History Last Taken 09/28/22] acetaminophen 500 mg tablet 2 tab PO Q8H PRN Pain 10/05/22 [History Last Taken 09/23/22] levothyroxine 25 mcg tablet 25 mcg PO DAILY THYROID 10/05/22 [History Last Taken 10/05/22] melatonin 5 mg tablet 10 mg PO QHS INSOMNIA 10/05/22 [History Last Taken 10/04/22] multivitamin 1 tab PO DAILY HEALTH MAINTENANCE 10/05/22 [History Last Taken 10/05/22] pantoprazole 40 mg granules delayed-release for susp in packet 40 mg PO BID GERD 10/05/22 [History Last Taken 10/05/22] lactose-reduced food with fiber 0.06 gram-1.5 kcal/mL oral liquid (Jevity 1.5 Alexander) 240 ml G-tube 4X/DAY #0 mL 10/07/22 [Rx Last Taken Unknown] Allergy/AdvReac Type Severity Reaction Status Date / Time No Known Allergies Allergy Verified 10/22/22 11:44 Family History Mother Diabetes Cancer Surgical History History of right knee surgery right ankle surgery Social History household members: none housing: [facility] Smoking Status: Current every day smoker tobacco type: cigarettes alcohol intake: never substance use type: former substance user and marijuana ROS ROS ED ROS Narrative Nausea and vomiting. Abdominal cramping. Review of Systems ROS Unobtainable: Denies due to encephalopathy Constitutional Constitutional ED: Denies chills or fever(s) ENT ENT ED: Denies ear pain Cardiovascular Cardiovascular: Denies chest pain Respiratory/Chest Respiratory/Chest: Denies cough or dyspnea Gastrointestinal Gastrointestinal: Reports abdominal pain, constipation, nausea and vomiting; Denies diarrhea or melena Genitourinary Genitourinary ED: Denies dysuria or hematuria Musculoskeletal Musculoskeletal: Denies arthralgias Integumentary Denies abscess Neurologic Neurologic: Denies headache(s) Psychiatric Psychiatric: Denies anxiety Endocrine Endocrinology: Denies polydipsia Hematologic/Lymphatic Hematologic/Lymphatic: Denies easy bleeding Allergic/Immunologic Allergic/Immunologic ED: Denies mouth swelling or tongue swelling EXAM Physical Exam Narrative Exam Narrative: 62-year-old female vital signs stable afebrile. Does not look septic or toxic. H EENT exam unremarkable. Neck nontender no lymphadenopathy. Lungs clear to auscultation bilaterally. Heart regular rate and rhythm rate about 100. No murmur. Abdomen soft minimally epigastric tender. No rebound, guarding or rigidity. PEG tube and in the epigastric region. Nondistended. No signs of obstruction. No right upper or right lower quadrant tenderness. No peritoneal signs. Positive bowel sounds. She is awake and alert answering questions. She does stutter. Patient's had a stroke her left arm is paralyzed she is weak in the left leg but can lift it. Const Vital Signs: 10/22/22 11:40 10/22/22 14:20 Temperature 99 F Temperature Source Temporal Pulse Rate 102 H 91 Respiratory Rate 16 16 Blood Pressure 131/90 H 141/83 H Blood Pressure Mean 103 102 Pulse Ox 96 96 Oxygen Delivery Method Room Air Room Air Positive well nourished and well developed; Negative for obese, cachectic, contractures or unkempt General Appearance ED: well developed and NAD; Negative for unkempt, cachectic, contractures or pallor Nutritional Appearance: Negative for cachectic or obese HEENT Reports moist mucous membranes normocephalic and atraumatic; Negative for trauma or tenderness Eyes PERRL and EOMs intact bilaterally General Eye ED: Negative for pale conjunctiva or scleral icterus Neck no lymphadenopathy, supple and no JVD General: Negative for tenderness Carotids: Negative for other Lymph Lymphatic: Negative for other Resp clear to auscultation bilaterally Effort and Inspection: Negative for respiratory distress Auscultation: Negative for rales or rhonchi Cardio regular rate, regular rhythm, S1 normal heart sound, S2 normal heart sound and no murmurs Rate: Negative for bradycardia Rhythm: Negative for abnormal rhythm GI non-distended and no masses; Negative for non-tender GI Narrative: Mildly tender. Inspection: Negative for abdominal distention Auscultation: normoactive bowel sounds Palpation: soft and tender; Negative for guarding, rigid, hepatomegaly, splenomegaly, hernia, mass, pulsatile mass or rebound tenderness present Back/Spine no CVA tenderness General Back: Negative for CVA tenderness Cervical Spine: Negative for cervical spine tenderness Thoracic Spine / Upper Back: Negative for thoracic spinal tenderness Lumbar Spine / Lower Back: Negative for lumbar spinal tenderness Extremity Negative for full ROM Extremity Narrative: Left arm paralysis due to prior stroke. Left leg weaker than the right from the same stroke. General Extremety ED: Negative for edema or tenderness General Extremity: Negative for edema Neuro No moves all extremities Sensorium / Orientation: alert, oriented to person, oriented to place and oriented to time; Negative for orientation impaired, confused, lethargic or stuporous Motor Exam: strength abnormal; Negative for strength 5/5 throughout Psych mental status grossly normal and thought process normal Appearance: Negative for unkempt or other Attitude: No agitated Mood & Affect: Negative for depressed, anxious or tearful Skin no wounds General Skin Exam: Negative for jaundice or pallor Lesions: no lesions Rashes: no rashes Trauma: Negative for abrasion Nails: Negative for discolored MDM MDM MDM Narrative Medical decision making narrative: 62-year-old female with nausea vomiting. We will treat with IV fluids IV Zofran. Screening labs and plain x-ray will be obtained. Clinically she does not appear to have acute bowel obstruction. Repeat exam patient is doing well at 3:35 PM. Abdomen is benign. Her nausea has improved with Zofran. She will be discharged back to [facility] with Zofran as needed for nausea and instructions for them to either do soapsuds enema or lactulose for her constipation. Lab Data Attestation: I reviewed the patient's lab results. Lab results narrative: CBC shows a white count 13.1. H&H 12.6 and 40. Platelets are 531. Electrolytes show a gap of 5 normal BUN and creatinine liver enzymes show an alk phos of 145. Lipase is normal at 192. Glucose is 132. KUB shows constipation but no obstruction. Labs: Laboratory Results - last 24 hr 10/22/22 10/22/22 13:07 13:07 WBC 13.1 H RBC 4.81 Hgb 12.6 Hct 40.5 MCV 84.2 MCH 26.2 L MCHC 31.1 L RDW Std Deviation 52.5 H RDW Coeff of Jeanine 17.1 H Plt Count 531 H MPV 9.9 Immature Gran % (Auto) 0.400 Neut % (Auto) 81.5 H Lymph % (Auto) 11.1 L Raleigh % (Auto) 6.7 Eos % (Auto) 0.1 Baso % (Auto) 0.2 Absolute Neuts (auto) 10.7 H Absolute Lymphs (auto) 1.45 Nucleated RBC % 0 Sodium 138 Potassium 3.7 Chloride 103 Carbon Dioxide 30.0 Anion Gap 5 BUN 11 Creatinine 0.81 Estim Creat Clear Calc 52.39 Est GFR (MDRD) Af Amer 92 Est GFR (MDRD) Non-Af 76 BUN/Creatinine Ratio 13.5 Glucose 132 H Calcium 9.5 Total Bilirubin 0.50 AST 23 ALT 19 Alkaline Phosphatase 145 H Total Protein 8.4 H Albumin 3.5 Globulin 4.9 H Albumin/Globulin Ratio 0.7 L Lipase 192 Radiography Diagnostic Testing: KUB single view interpreted by myself shows increasing stool. No obstruction. Feeding tube. Bowel gas. Discharge Plan Triage Chief Complaint: Nausea/Vomiting ED Provider: Colin Jones Dx/Rx/DC Orders Clinical Impression: Nausea & vomiting, History of embolic stroke, History of GI bleed, Acute constipation Instructions: ED Constipation (Adult), ED Vomiting (Adult) Prescriptions: No Action atorvastatin 40 MG tablet 40 mg PO DAILY paroxetine HCl 20 MG tablet 20 mg PO DAILY doxepin 100 MG capsule 100 mg PO QHS Label Comments: TAKE 1 CAPSULE BY MOUTH ONCE DAILY AT BEDTIME ergocalciferol (vitamin D2) 1,250 mcg (50,000 unit) capsule 50,000 units PO QMONTH bupropion HCl (smoking deter) 150 mg tablet extended release 12 hr 150 mg PO BID multivitamin Tablet 1 tab PO DAILY levothyroxine 25 mcg Tablet 25 mcg PO DAILY pantoprazole [address] For Susp In Packet 40 mg PO BID melatonin 5 mg Tablet 10 mg PO QHS acetaminophen 500 MG tablet 2 tab PO Q8H PRN (Reason: Pain) Jevity 1.5 Alexander 0.06 gram-1.5 kcal/mL Liquid 240 ml G-tube 4X/DAY Qty: 0 0RF Primary Care Provider: Zachary Vargas Chi Referrals: Zachary Vargas Chi, MD [Primary Care Provider] - 3-5 Days Activity Restrictions/Additional Instructions: Constipated on x-ray so either a soapsuds enema or magnesium citrate or lactulose for constipation. Per orders of her primary care physician or your quality engineer medical device. Zofran as needed for her nausea. Follow-up with your doctor. Disposition Disposition: Home, Self Care
[2022-10-22 13:14] LABS: Absolute Lymphocyte Count 1.45 X10^3/uL (0.83-4.51); Absolute Neutrophil Count 10.7 X10^3/uL (2.0-7.7); Basophil# 0.03 X10^3/uL; Basophil% 0.2 % (0-1); Eosinophil# 0.01 X10^3/uL; Eosinophils% 0.1 % (0-5); Hematocrit 40.5 % (37-47); Hemoglobin 12.6 g/dL (12.0-15.0); Lymphocyte # 1.45 X10^3/ul (0.83-4.51); Lymphocyte % 11.1 % (19-41); Mean Corp Hgb Conc 31.1 g/dL (32-36); Mean Corpuscular Hgb 26.2 pg (27.0-32.0); Mean Corpuscular Volume 84.2 fL (81-99); Mean Platelet Vol. 9.9 fl (6.2-12.0); Monocyte# 0.87 X10^3/uL; Monocyte% 6.7 % (0-10); NRBC Flagged by Analyzer 0 % (0-5); Neutrophil # 10.67 X10^3/uL (2.7-7.7); Neutrophil % 81.5 % (47-70); Platelet Count 531 K/mm3 (150-450); RBC Distribution Width CV 17.1 % (11.6-14.6); RBC Distribution Width SD 52.5 fl (35.1-43.9); Red Blood Count 4.81 M/mm3 (4.2-5.4); White Blood Count 13.1 K/mm3 (4.4-11.0)
--- NOTE | 2022-10-22 13:15 | RAD_ITS ---
INDICATION: constipated and vomiting EXAMINATION/TECHNIQUE: X-RAY - XR Abdomen 1 View COMPARISON: None FINDINGS: BOWEL GAS PATTERN: Non-obstructive. Moderate amount of retained stool in the colon. FREE AIR: Not assessed on a single supine view. ORGANOMEGALY: Not seen. CALCIFICATIONS: No abnormal calcifications observed. LOWER CHEST: No acute pathology. BONES AND SOFT TISSUES: Moderate multilevel degenerative changes of the lumbar spine. Total left hip arthroplasty. RAD/Abdomen Single View (Portable) IMPRESSION: Non-obstructive bowel gas pattern. Moderate amount of retained stool in the colon. Electronically Signed: Emiliano Calix MD at 17:34 EST ,
[2022-10-22] MEDS: Ondansetron 4 MG/2 ML Vial IV (13:22)
[2022-10-22] MEDS: 0.9% Normal Saline 1,000 ML 1000 ML IV (13:22)
[2022-10-22 13:31] LABS: ALB/GLOB Ratio 0.7 RATIO (0.9-2.4); AST(SGOT) 23 U/L (15-37); Alanine Aminotransfer ALT/SGPT 19 U/L (13-56); Albumin, Serum 3.5 g/dL (3.2-5.0); Alkaline Phosphatase 145 U/L (45-117); Anion Gap 5 (5-15); BUN 11 mg/dL (7-18); BUN/Creat Ratio 13.5 RATIO (10-20); Calcium,Total 9.5 mg/dL (8.5-10.1); Chloride 103 mmol/L (98-107); Creatinine, Serum 0.81 mg/dL (0.55-1.02); EST Glomerular Filtration Rate 76 mL/min (>60); Est Glom Filt Rate - Afr Amer 92 mL/min (>60); Estimated Creatinine Clearance 52.39 ml/min; Globulin 4.9 g/dL (2.2-4.2); Glucose 132 mg/dL (74-106); Lipase 192 U/L (73-393); Potassium 3.7 mmol/L (3.5-5.1); Protein, Total 8.4 g/dL (6.4-8.2); Sodium Level 138 mmol/L (136-145)
[2022-10-22 14:20] VITALS: BP 141/83; PULSE 91; RESP 16; O2SAT 96
--- NOTE | 2022-10-22 16:41 | ED.RN ---
NURSE TO NURSE REPORT GIVEN TO STAFF AT [facility], PT'S NURSE WAS UNAVAILABLE TO TAKE REPORT. STAFF STATE THEY WILL RELAY MESSAGE TO NURSE AND HAVE HER CALL BACK WITH ANY QUESTIONS. MESSAGE ALSO LEFT ON PT'S NURSE'S PHONE BY THIS RN.
== END 2022-10-22 16:44 | disposition home or self-care (01) ==
PROVIDERS: Emergency Provider Emergency Medicine; PCP Family Medicine Geriatric Medicine; Visit Provider Emergency Medicine
DX: R11.2 Nausea with vomiting, unspecified (principal); Z93.1 Gastrostomy status; K59.00 Constipation, unspecified; F17.210 Nicotine dependence, cigarettes, uncomplicated; Z86.73 Personal history of transient ischemic attack (TIA), and cerebral infarction without residual deficits
CPT/HCPCS: 74018; 80053; 83690; 85025; 96361; 96374; 99285; J7030; J2405

== ENCOUNTER → 2022-11-30 | Outpatient (REF) | payer MEDICAID, SELFPAY ==
[2022-11-30 08:38] LABS: Absolute Lymphocyte Count 3.23 X10^3/uL (0.83-4.51); Absolute Neutrophil Count 4.5 X10^3/uL (2.0-7.7); Basophil# 0.09 X10^3/uL; Eosinophil# 0.25 X10^3/uL; Eosinophils% 2.7 % (0-5); Hematocrit 39.2 % (37-47); Hemoglobin 11.4 g/dL (12.0-15.0); Lymphocyte # 3.23 X10^3/ul (0.83-4.51); Lymphocyte % 35.1 % (19-41); Mean Corp Hgb Conc 29.1 g/dL (32-36); Mean Corpuscular Hgb 24.9 pg (27.0-32.0); Mean Corpuscular Volume 85.6 fL (81-99); Mean Platelet Vol. 9.7 fl (6.2-12.0); Monocyte# 1.14 X10^3/uL; Monocyte% 12.4 % (0-10); NRBC Flagged by Analyzer 0 % (0-5); Neutrophil # 4.45 X10^3/uL (2.7-7.7); Neutrophil % 48.5 % (47-70); Platelet Count 451 K/mm3 (150-450); RBC Distribution Width CV 16.5 % (11.6-14.6); Red Blood Count 4.58 M/mm3 (4.2-5.4); White Blood Count 9.2 K/mm3 (4.4-11.0)
[2022-11-30 08:59] LABS: Anion Gap 6 (5-15); BUN 16 mg/dL (7-18); BUN/Creat Ratio 19.9 RATIO (10-20); Chloride 108 mmol/L (98-107); Creatinine, Serum 0.81 mg/dL (0.55-1.02); EST Glomerular Filtration Rate 77 mL/min (>60); Est Glom Filt Rate - Afr Amer 93 mL/min (>60); Glucose 82 mg/dL (74-106); Potassium 4.1 mmol/L (3.5-5.1); Sodium Level 139 mmol/L (136-145)
== END | disposition home or self-care (01) ==
LOC: OLS.SW 06:40
PROVIDERS: PCP Family Medicine Geriatric Medicine; Visit Provider Internal Medicine
DX: I10 Essential (primary) hypertension (principal); U07.1 COVID-19; Z79.899 Other long term (current) drug therapy
CPT/HCPCS: 36415; 80048; 85025; 86140

== ENCOUNTER → 2022-12-07 | Outpatient (REF) | payer MEDICAID, SELFPAY ==
[2022-12-07 09:39] LABS: Anion Gap 8 (5-15); BUN 19 mg/dL (7-18); BUN/Creat Ratio 25.6 RATIO (10-20); Calcium,Total 8.5 mg/dL (8.5-10.1); Chloride 107 mmol/L (98-107); Creatinine, Serum 0.74 mg/dL (0.55-1.02); EST Glomerular Filtration Rate 84 mL/min (>60); Est Glom Filt Rate - Afr Amer 102 mL/min (>60); Glucose 88 mg/dL (74-106); Potassium 3.8 mmol/L (3.5-5.1); Sodium Level 141 mmol/L (136-145)
[2022-12-07 09:50] LABS: Absolute Neutrophil Count 3.6 X10^3/uL (2.0-7.7); Basophil# 0.08 X10^3/uL; Basophil% 1.1 % (0-1); Eosinophil# 0.15 X10^3/uL; Eosinophils% 2.1 % (0-5); Hematocrit 36.1 % (37-47); Lymphocyte % 31.8 % (19-41); Mean Corp Hgb Conc 30.5 g/dL (32-36); Mean Corpuscular Hgb 25.5 pg (27.0-32.0); Mean Corpuscular Volume 83.8 fL (81-99); Monocyte# 1.11 X10^3/uL; Monocyte% 15.4 % (0-10); NRBC Flagged by Analyzer 0 % (0-5); Neutrophil # 3.57 X10^3/uL (2.7-7.7); Neutrophil % 49.3 % (47-70); Platelet Count 406 K/mm3 (150-450); RBC Distribution Width CV 16.5 % (11.6-14.6); RBC Distribution Width SD 50.3 fl (35.1-43.9); Red Blood Count 4.31 M/mm3 (4.2-5.4); White Blood Count 7.2 K/mm3 (4.4-11.0)
== END | disposition home or self-care (01) ==
LOC: OLS.SW 05:00
PROVIDERS: PCP Family Medicine Geriatric Medicine; Visit Provider Internal Medicine
DX: U09.9 Post COVID-19 condition, unspecified (principal); T14.8XXA Other injury of unspecified body region, initial encounter
CPT/HCPCS: 36415; 80048; 85025; 86140; 87070; 87077; 87186; 87205

== ENCOUNTER → 2022-12-28 | Outpatient (REF) | payer MEDICAID, SELFPAY | END | disposition home or self-care (01) | LOC: OLS.SW 05:30 | PROVIDERS: PCP Family Medicine Geriatric Medicine; Referring Provider Internal Medicine; Visit Provider Internal Medicine | DX: K94.29 Other complications of gastrostomy (principal) | CPT/HCPCS: 87070; 87077; 87205 ==

== ENCOUNTER 2023-01-21 06:32 | Day surgery (SDC) | payer MEDICAID, SELFPAY ==
--- NOTE | 2023-01-21 | ESO_PTH ---
PATIENT: ALISTAIR MUELLER LOC: EN U#:[id number] AGE/SX: 63/F ROOM: RE01/21/[address]: Dr. Luis Negrete DO : 1960 BED: DIS: 01/21/2023 SPEC #: [id number] RECD: 01/21/23 11:41 STATUS: GRANT REIdris #: [id number] RIYA: 01/21/23 00:[address]: Luis Negrete DEPT: SURGICAL PATHOLOGY RECD BY: Wyatt Koenig ENTERED: 01/21/23 11:41 SP TYPE: [facility] DR: Dr. Zachary Vargas MD Tissues: Esophagus, NOS Procedures: Special Stain Group I Surgery Specimen Level IV GMS Stain (control) HEADER OPERATION: [place] [place], biopsy, dilatation PRE-OP DIAGNOSIS: Dysphagia TISSUE SUBMITTED: Esophageal stricture biopsy MICROSCOPIC DIAGNOSIS Esophageal stricture, biopsy: Junctional mucosa with associated ulceration, acute and chronic inflammation and fibrinopurulent material. Negative for fungal organisms. See comment. AM:sandra 01/22/2023 COMMENT GMS stain with matched control was used in the evaluation of this case. MICROSCOPIC DESCRIPTION Slides are reviewed. GROSS DESCRIPTION Received in fixative is one container labeled with the patient's name and designated biopsy esophageal stricture. The specimen consists of multiple irregular fragments of light kerr soft tissue that in aggregate measure 0.8 x 0.4 x 0.1 cm. The specimen is totally submitted in one cassette. / SJ:sandra 01/21/2023 TC:2 CPT: 66626, 75193
--- NOTE | 2023-01-21 07:01 | HP.PCM_ITS ---
History and Physical Date of Admission: 01/21/23 62 F who presents to the office today for Follow up. [facility] hospitalization 07.22.20-07.26.20 for fall with hip fracture, CVA, dysphagia. [facility] consulted for dysphagia with EGD performed. ?EGD 07.25.20?pediatric grade 3 erosive esophagitis; gastritis with hemorrhage; small hiatal hernia. ?Protonix 20mg BID. *[facility] hospitalization 08.15.22-08.27.22 with epigastric pain, nausea and coffee- ground emesis for diagnoses of pneumonia, hypoxemia, GIB, dysphagia, malnutrition. She experienced respiratory decompensation requiring ICU admission. GI consulted 08.16.22 with recommendation of continuation of PPI drip and EGD which was delayed r/t respiratory decompensation. ?CT abd/pel 08.15.22?fluid filled thick walled distal esophagus; hiatal hernia; fecal retention. ?Barium swallow 08.24.22?mild-moderate oropharyngeal phase dysphagia. ?EGD 08.25.22?LA grade D erosive esophagitis; EOE; medium hiatal hernia. Distal esophagus biopsy with ulceration, acute/chronic inflammation. [facility] hospitalization 10.05.22-10.07.22 with dysphagia and aspiration. Dysphagia r/t previous stroke with recommendation of PEG placement. GI consulted 10.06.22 with EGD performed same day. ?EGD 10.06.22?normal esophagus, stomach, duodenum. Endoscopically removable PEG placed. [facility] ED 10.22.22 with N/V and constipation. No acute findings noted and returned to [facility] with Zofran and enemas versus lactulose. ?KUB?moderate amount of retained colonic stool. Non-obstructive gas pattern. OV 10.20.22 with request for diet advancement which was provided to include pureed food and nectar thick liquids for pleasure. OV 12.31.22 she continues to have intermittent difficulty with PO intake causing midupper epigastric discomfort followed by dysphagia. Denies coughing during intake. ROS Const Constitutional: No anorexia, fatigue, fever(s), weight change or sleep problems Eyes Eyes: No change in vision ENT ENT: No abnormal hearing, difficulty swallowing, mouth lesions, tongue swelling or throat swelling Resp Respiratory: No cough or shortness of breath Cardio Cardiology: No chest pain at rest, chest pain with exertion, shortness of breath or dyspnea on exertion Gastro GI: No difficulty swallowing Genitourinary-Female: No difficulty urinating or burning urination Musc Musculoskeletal: No joint pain, joint swelling, muscle weakness or decreased muscle mass Skin Skin: No hair loss in leg, yellowing of the eye, itchy eyes, rash, skin ulcer or skin swelling Neuro Neurology: No abnormal hearing, abnormal movements, confusion, unsteady gait/balance or memory loss Psych Psychiatric: No anxiety, No confusion and No memory loss Endo Endocrine: No fatigue or weight change Aller/Imm Allergy/Immunologic: No itchy eyes, throat swelling or tongue swelling Matt/Lymp Hematologic/Lymphatic: No easy bleeding, easy bruising or enlarged lymph nodes Exam Const General: cooperative and comfortable Nutritional Appearance: thin Orientation: alert, awake and oriented x3 Other: In wheelchair Quality Reporting Tobacco Screening ([facility] 138) Smoking Status: Current every day smoker Assessment and Plan Assessment and Plan (1) Dysphagia: ?Status:?Chronic ?Plan: I reviewed NEEDLE POLISHER note from after pt's PEG tube was placed. Order sent back with pt to CT that in addition to her tube feeds she may have pureed texture and nectar thick liquids po for pleasure, as well as to prevent losing ability to swallow. She is working with speech therapist at [facility]. Her eating is to be supervised, she needs to sit with hips 90 degrees, remain upright at least 30 min after eating, small sips, small bites. Her sister is typically with her at dinner every day. f/u 2-3 mos (2) PEG (percutaneous endoscopic gastrostomy) status: ?Status:?Chronic ?Plan: We will schedule her for PEG tube removal.? There also seems to be some infection around the tube.? I would like to complete a course of antibiotic therapy prior to permanent tube.? I talked to her regarding smoking and the fact that it has on healing process. I have examined the patient and the H&P has been reviewed. There are no clinical changes since date of exam.
[2023-01-21] MEDS: Lactated Ringers 1,000 ML 15 ML IV (07:19)
[2023-01-21 07:20] VITALS: BP 128/75; PULSE 89; RESP 18; TEMP 36.8; O2SAT 95; BMI 19.7
[2023-01-21 08:05] VITALS: BP 105/73; BP 128/75; PULSE 93; RESP 16; TEMP 36.7; O2SAT 94
[2023-01-21 08:10] VITALS: BP 114/74; BP 128/75; PULSE 91; RESP 16; O2SAT 93
--- NOTE | 2023-01-21 08:10 | OP.EGD_ITS ---
Patient Name: Carolyn Watt Procedure Date: 01/21/2023 7:35 AM Date of : 1960 Age: 63 Procedure: Upper GI endoscopy Indications: Dysphagia, Remove PEG tube (no longer needed) Providers: Luis Negrete DO Medicines: Monitored Anesthesia Care Patient Profile: This is a 63 year old female. Refer to note in patient chart for documentation of history and physical. Patient has symptoms of chronic dysphagia. She is status post EGD for PEG placement one year ago. Complications: No immediate complications. Procedure: Pre-Anesthesia Assessment: - Prior to the procedure, a History and Physical was performed, and patient medications and allergies were reviewed. The risks and benefits of the procedure and the sedation options and risks were discussed with the patient. All questions were answered and informed consent was obtained. Patient identification and proposed procedure were verified by the physician in the pre-procedure area. Mental Status Examination: alert and oriented. Airway Examination: normal oropharyngeal airway and neck mobility. Respiratory Examination: clear to auscultation. CV Examination: normal. Prophylactic Antibiotics: The patient does not require prophylactic antibiotics. Prior Anticoagulants: The patient has taken no previous anticoagulant or antiplatelet agents. ASA Grade Assessment: III - A patient with severe systemic disease. After reviewing the risks and benefits, the patient was deemed in satisfactory condition to undergo the procedure. The anesthesia plan was to use monitored anesthesia care (MAC). Immediately prior to administration of medications, the patient was re-assessed for adequacy to receive sedatives. The heart rate, respiratory rate, oxygen saturations, blood pressure, adequacy of pulmonary ventilation, and response to care were monitored throughout the procedure. The physical status of the patient was re-assessed after the procedure. After obtaining informed consent, the endoscope was passed under direct vision. Throughout the procedure, the patient's blood pressure, pulse, and oxygen saturations were monitored continuously. The gastroscope was introduced through the mouth, and advanced to the second part of duodenum. The upper GI endoscopy was accomplished without difficulty. The patient tolerated the procedure well. Scope In: 7:46:24 AM Scope Out: 7:59:45 AM Total Procedure Duration Time 0 hours 13 minutes 21 seconds Findings: One benign-appearing, intrinsic stenosis was found 30 to 33 cm from the incisors. This stenosis was severe and. The stenosis was traversed after dilation. A TTS dilator was passed through the scope. Dilation with an 18-19-20 mm balloon dilator was performed to 18 mm. The dilation site was examined and showed moderate improvement in luminal narrowing. Biopsies were taken with a cold forceps for histology. Verification of patient identification for the specimen was done. Estimated blood loss was minimal. A small hiatal hernia was present. There was evidence of an intact gastrostomy with a patent G-tube present in the gastric body. This was characterized by congestion, edema and erosion. The PEG required removal because it was no longer necessary. The PEG was cut externally, grasped, and removed with the scope. Removal was easily accomplished. No gross lesions were noted in the duodenal bulb. Impression: - Benign-appearing esophageal stenosis. Dilated. Biopsied. - Small hiatal hernia. - Intact gastrostomy with a patent G-tube present characterized by congestion, edema and erosion. - No gross lesions in the duodenal bulb. - The PEG was cut externally, grasped, and removed with the scope because it was no longer necessary. Recommendation: - Discharge patient to home. - Clear liquid diet. - Continue present medications. - Await pathology results. - Repeat upper endoscopy in 2 months for surveillance. Procedure Code(s): --- Professional --- 74587, Esophagogastroduodenoscopy, flexible, transoral; with removal of foreign body(s) 49131, 51, Esophagogastroduodenoscopy, flexible, transoral; with transendoscopic balloon dilation of esophagus (less than 30 mm diameter) 51125, 59, Esophagogastroduodenoscopy, flexible, transoral; with biopsy, single or multiple CPT copyright 2017 [employer]. All rights reserved. The codes documented in this report are preliminary and upon mall plant caretaker review may be revised to meet current compliance requirements. Luis Negrete DO 01/21/2023 8:09:47 AM This report has been signed electronically. Number of Addenda: 0 Note Initiated On: 01/21/2023 7:35 AM
--- NOTE | 2023-01-21 08:11 | OP.CCLET_ITS ---
01/21/2023 Zachary Vargas MD [address] [place] [address] Re : Upper GI endoscopy procedure for Carolyn Watt Dear Dr. Vargas This procedure was performed on January. My impressions and recommendations are as follows: Impressions : - Benign-appearing esophageal stenosis. Dilated. Biopsied. - Small hiatal hernia. - Intact gastrostomy with a patent G-tube present characterized by congestion, edema and erosion. - No gross lesions in the duodenal bulb. - The PEG was cut externally, grasped, and removed with the scope because it was no longer necessary. Recommendations : - Discharge patient to home. - Clear liquid diet. - Continue present medications. - Await pathology results. - Repeat upper endoscopy in 2 months for surveillance. My findings are described in the full procedure note, which is enclosed. If I can be of further assistance, please feel free to contact me at . Sincerely, Luis Negrete, 01/21/2023 8:09:47 AM This report has been signed electronically.
[2023-01-21 08:15] VITALS: BP 121/78; BP 128/75; PULSE 92; RESP 18; O2SAT 93
[2023-01-21 08:20] VITALS: BP 123/95; BP 128/75; PULSE 93; RESP 18; TEMP 36.6; O2SAT 94
[2023-01-21 08:34] VITALS: BP 128/75
== END 2023-01-21 09:05 | disposition home or self-care (01) ==
LOC: EN 06:41 → AC 06:41
PROVIDERS: PCP Family Medicine Geriatric Medicine; Referring Provider Family Medicine Geriatric Medicine; Visit Provider Internal Medicine Gastroenterology
PROC: 0DJ08ZZ Inspection of Upper Intestinal Tract, Via Natural or Artificial Opening Endoscopic (ICD-10-PCS; CPT 43235; principal; 2023-01-21 07:25)
DX: Z46.59 Encounter for fitting and adjustment of other gastrointestinal appliance and device (principal); Z93.1 Gastrostomy status; J43.9 Emphysema, unspecified; K44.9 Diaphragmatic hernia without obstruction or gangrene; F17.200 Nicotine dependence, unspecified, uncomplicated; K22.2 Esophageal obstruction
CPT/HCPCS: 43249; 43239; 43247; 88305; 88312; J7120; J2405

== ENCOUNTER → 2023-07-23 | Outpatient (CLI) | payer MEDICAID, SELFPAY ==
[2023-07-23 16:07] LABS: ALB/GLOB Ratio 0.8 RATIO (0.9-2.4); AST(SGOT) 14 U/L (15-37); Alanine Aminotransfer ALT/SGPT 13 U/L (13-56); Albumin, Serum 3.3 g/dL (3.2-5.0); Alkaline Phosphatase 176 U/L (45-117); Amylase 118 U/L (25-115); Anion Gap 10 (5-15); BUN 7 mg/dL (7-18); BUN/Creat Ratio 8.3 RATIO (10-20); Calcium,Total 9.3 mg/dL (8.5-10.1); Chloride 107 mmol/L (98-107); Creatinine, Serum 0.85 mg/dL (0.55-1.02); EST Glomerular Filtration Rate 72 mL/min (>60); Est Glom Filt Rate - Afr Amer 88 mL/min (>60); Ferritin 12 ng/mL (8-252); Globulin 4.4 g/dL (2.2-4.2); Glucose 52 mg/dL (74-106); Iron 37 ug/dL (50-170); Iron Binding Capacity,Total 557 ug/dL (250-450); LDH 178 U/L (84-246); Lipase 38 U/L (13-75); Potassium 3.1 mmol/L (3.5-5.1); Protein, Total 7.7 g/dL (6.4-8.2); Sodium Level 141 mmol/L (136-145)
== END | disposition home or self-care (01) ==
LOC: LAB 11:37
PROVIDERS: PCP Family Medicine Geriatric Medicine; Referring Provider Internal Medicine Gastroenterology; Visit Provider Internal Medicine Gastroenterology
DX: R11.2 Nausea with vomiting, unspecified (principal)
CPT/HCPCS: 82784 ×3; 83010; 83516; 84165; 86255; 86256 ×3; 86334; 36415; 80053; 82150; 82728; 83540; 83550; 83615; 83690; 86140

== ENCOUNTER → 2023-07-29 | Outpatient (CLI) | payer MEDICAID, SELFPAY ==
[2023-07-29 15:45] LABS: Absolute Lymphocyte Count 2.73 X10^3/uL (0.83-4.51); Absolute Neutrophil Count 6.1 X10^3/uL (2.0-7.7); Basophil# 0.07 X10^3/uL; Basophil% 0.7 % (0-1); Eosinophil# 0.06 X10^3/uL; Eosinophils% 0.6 % (0-5); Hematocrit 46.2 % (37-47); Hemoglobin 14.3 g/dL (12.0-15.0); Lymphocyte # 2.73 X10^3/ul (0.83-4.51); Lymphocyte % 28.1 % (19-41); Mean Corpuscular Hgb 26.8 pg (27.0-32.0); Mean Corpuscular Volume 86.5 fL (81-99); Mean Platelet Vol. 9.9 fl (6.2-12.0); Monocyte# 0.74 X10^3/uL; Monocyte% 7.6 % (0-10); NRBC Flagged by Analyzer 0 % (0-5); Neutrophil # 6.09 X10^3/uL (2.7-7.7); Neutrophil % 62.7 % (47-70); Platelet Count 485 K/mm3 (150-450); RBC Distribution Width CV 15.5 % (11.6-14.6); RBC Distribution Width SD 48.7 fl (35.1-43.9); Red Blood Count 5.34 M/mm3 (4.2-5.4); White Blood Count 9.7 K/mm3 (4.4-11.0)
[2023-07-29 15:53] LABS: Platelet Count 480 K/mm3 (150-450); RET-HE 30.1 pg (30-35); Reticulocyte Count 1.69 % (0.5-1.5)
[2023-07-29 16:04] LABS: Erythrocyte Sedimentation Rate 45 mm/hr (0-30)
[2023-07-29 16:13] LABS: ALB/GLOB Ratio 0.7 RATIO (0.9-2.4); AST(SGOT) 9 U/L (15-37); Alanine Aminotransfer ALT/SGPT 13 U/L (13-56); Albumin, Serum 3.1 g/dL (3.2-5.0); Alkaline Phosphatase 162 U/L (45-117); Anion Gap 7 (5-15); BUN 9 mg/dL (7-18); BUN/Creat Ratio 10.5 RATIO (10-20); Calcium,Total 9.1 mg/dL (8.5-10.1); Chloride 102 mmol/L (98-107); Cholesterol 166 mg/dL (200); Creatinine, Serum 0.86 mg/dL (0.55-1.02); EST Glomerular Filtration Rate 71 mL/min (>60); Est Glom Filt Rate - Afr Amer 86 mL/min (>60); Globulin 4.6 g/dL (2.2-4.2); Glucose 108 mg/dL (74-106); High Density Lipoprotein 42 mg/dL; Potassium 2.8 mmol/L (3.5-5.1); Protein, Total 7.7 g/dL (6.4-8.2); Sodium Level 138 mmol/L (136-145); Triglycerides 155 mg/dL; Very Low Density Lipoprotein 31 mg/dL (5-40)
[2023-08-02 16:09] LABS: Albumin 3.5 g/dL (2.9-4.4); Alpha-1-Globulins 0.3 g/dL (0.0-0.4); Alpha-2-Globulins 0.9 g/dL (0.4-1.0); Cytoplasmic Ab (C-ANCA) <1:20 titer (Neg:<1:20); Endomysial Antibody IgA Negative (Negative); Haptoglobin 268 mg/dL (37-355); Immunoglobulin A 485 mg/dL (87-352); Immunoglobulin G 1033 mg/dL (586-1602); Immunoglobulin M 206 mg/dL (26-217); PROEL- TOTAL PROTEIN 7.2 g/dL (6.0-8.5); Perinuclear Ab (P-ANCA) <1:20 titer (Neg:<1:20); t-Transglutaminase IgA <2 U/mL (0-3)
== END | disposition home or self-care (01) ==
LOC: POLAB3 15:07
PROVIDERS: Internal Medicine Gastroenterology; PCP Family Medicine Geriatric Medicine; Visit Provider Family Medicine Geriatric Medicine
DX: R53.83 Other fatigue (principal); R11.2 Nausea with vomiting, unspecified
CPT/HCPCS: 36415; 80053; 80061; 82784; 83010; 83516; 84165; 84443; 85025; 85045; 85652; 86255; 86256; 86334

== ENCOUNTER 2023-10-19 00:15 | Emergency (ER) | payer MEDICAID, SELFPAY ==
[2023-10-19 00:17] VITALS: BP 117/80; PULSE 121; RESP 23; TEMP 36.8; O2SAT 91
--- NOTE | 2023-10-19 00:28 | RAD_ITS ---
INDICATION: fall EXAMINATION/TECHNIQUE: X-RAY - XR Spine Thoracic 2 Views COMPARISON: Chest radiograph same day. FINDINGS: 2 views of the thoracic spine. BONES: T9 superior endplate fracture of uncertain chronicity. T6 vertebral body height loss as well. T3-T4 superior endplate compression deformities as well. No concerning bony lesion or abnormal sclerosis to suggest lesion. DISCS/JOINTS: No significant degenerative change. SOFT TISSUES: Unremarkable. RAD/Thoracic Spine 2 Views IMPRESSION: T9 superior endplate fracture of uncertain chronicity. Cannot exclude acute fracture. T6 vertebral body height loss as well. T3-T4 superior endplate compression deformities as well. Electronically Signed: Cornelius Rush MD at 3:06 EST ,
--- NOTE | 2023-10-19 00:28 | CT_ITS ---
INDICATION: fall, neck pain EXAMINATION: CT SPINE - CT Spine Cervical W/O Contrast Injection COMPARISON: Cervical spine CT 05/30/2022. A radiation dose optimization technique was used for this scan. Findings: Serial CT axial images through the cervical spine, with coronal and sagittal reformatted series. BONES: Oblique displaced C2 fracture extending to the left transverse foramen. No concerning bony lesion or abnormal sclerosis to suggest lesion. Again noted T1 anterior vertebral body compression deformity. Vertebral plana of T4 and T5 of uncertain chronicity. Sphenoid sinus air-fluid level. DISCS/JOINTS: Multilevel bilateral moderate to severe neuroforaminal narrowing. SOFT TISSUES: Biapical emphysematous lung changes. Marked circumferential proximal to mid esophageal wall thickening, consistent with esophagitis. CT/Spine Cervical without Contras IMPRESSION: C2 fracture extending to the left transverse foramen, raising concern for possible vertebral artery injury. Recommend dedicated neck CTA to exclude vascular injury. Marked circumferential proximal to mid esophageal wall thickening, consistent with esophagitis. Electronically Signed: Cornelius Rush MD at 3:02 EST ,
--- NOTE | 2023-10-19 00:28 | CT_ITS ---
INDICATION: fall EXAMINATION: CT BRAIN - CT Head or Brain W/O Contrast Injection TECHNIQUE: Serial CT axial images were obtained of the head without intravenous contrast. A radiation dose optimization technique was used for this scan. Radiation CTDIvol 44.99 Radiation DLP 1016.90 COMPARISON: 05/30/[address] Findings: Serial CT axial images of the head without contrast. BRAIN PARENCHYMA: Large right MCA distribution encephalomalacia from prior insult. Moderate diffuse volume loss. No evidence of intraparenchymal hemorrhage or hyperattenuating extra-axial fluid collection. BONES: Sphenoid and maxillary sinus air-fluid levels. SCALP/REMAINING SOFT TISSUES: Unremarkable. ASPECTS Score for Acute Strokes, if applicable: 10 CT/Brain/Head without Contrast IMPRESSION: No acute intracranial hemorrhage in this noncontrast head CT. Sinus disease. Electronically Signed: Cornelius Rush MD at 1:41 EST ,
--- NOTE | 2023-10-19 00:28 | EKG12_ITS ---
Test Reason : DYSRHYTHMIA Blood Pressure : / mmHG Vent. Rate : 102 BPM Atrial Rate : 102 BPM P-R Int : 130 ms QRS Dur : 068 ms QT Int : 350 ms P-R-T Axes : 071 -36 068 degrees QTc Int : 456 ms Sinus tachycardia Left axis deviation Low voltage QRS Nonspecific T wave abnormality Abnormal ECG Confirmed by ROSHAN BARAJAS, AVA ([id number]), pictures editor HITESH NEIL ([id number]) on 10/25/2023 6:59:39 AM Referred By: Confirmed By:CICI ISLAS MD
--- NOTE | 2023-10-19 00:30 | EX.ED.DYSGE1 ---
HPI History of Present Illness Chief Complaint: Weakness Detail of Chief Complaint: Head and neck pain after a fall Informant: patient Narrative Narrative: Patient presents to the emergency department complaint of head and neck pain. Patient had a fall 2 nights ago while walking she lost her balance and fell. She was able to get up right away she tells me. She lives alone. Patient denies any loss of consciousness. She is not anticoagulated. Generally feels weak and having a hard time ambulating. She has had history of prior stroke in 2015. Patient denies recent illness. She does have a cough. She denies fever or chills or sweats. She denies urinary symptoms. [facility] Medical History (Updated 10/19/23 @ 03:[address] Francisco Sood, ) Alcohol use Ambulates with cane Anemia Anxiety and depression Arthritis Asthma COPD (chronic obstructive pulmonary disease) Difficulty swallowing Easy bruising Emphysema lung Encounter for screening for malignant neoplasm of lung in current smoker with 30 pack year history or greater Esophageal thickening Excessive bleeding Gammopathy GERD (gastroesophageal reflux disease) History of echocardiogram History of peptic ulcer Hyperlipidemia Hypotension Hypothyroidism Iron deficiency anemia due to chronic blood loss Left hemiplegia Nicotine abuse Osteoporosis Polycythemia vera Post-menopausal Shortness of breath on exertion Thrombocytosis Tobacco use disorder, continuous Wears dentures Home Medications atorvastatin 40 mg tablet 40 mg PO DAILY cholesterol 12/26/18 [History Last Taken 10/04/22] doxepin 100 mg capsule 100 mg PO QHS depression 12/10/19 [History Last Taken 10/04/22] bupropion HCl (smoking deter) 150 mg tablet,12 hr sustained-release(smoking deterrent) 150 mg PO BID depression 05/20/20 [History Last Taken 10/05/22] ergocalciferol (vitamin D2) 1,250 mcg (50,000 unit) capsule 50,000 units PO QMONTH supplement 05/20/20 [History Last Taken 09/28/22] acetaminophen 500 mg tablet 2 tab PO Q8H PRN Pain 10/05/22 [History Last Taken 09/23/22] melatonin 5 mg tablet 10 mg PO QHS INSOMNIA 10/05/22 [History Last Taken 10/04/22] megestrol 400 mg/10 mL (40 mg/mL) oral suspension 200 mg (5 mL) PO BID #480 mL 03/23/23 [Rx Last Taken Unknown] ondansetron HCl 4 mg tablet 4 mg PO Q6H PRN nausea and vomiting #45 tabs 04/07/23 [Rx Last Taken Unknown] alprazolam 0.5 mg tablet (Xanax) 0.5 mg PO TID PRN anxiety #30 tabs 07/23/23 [Rx Last Taken Unknown] ondansetron 4 mg disintegrating tablet 4 mg PO Q6H #30 tabs 07/23/23 [Rx Last Taken Unknown] paroxetine HCl 20 mg tablet 20 mg PO DAILY depression #30 tabs 07/23/23 [Rx Last Taken Unknown] Allergy/AdvReac Type Severity Reaction Status Date / Time No Known Allergies Allergy Verified 01/21/23 07:18 Family History Mother Diabetes Cancer Surgical History History of esophagogastroduodenoscopy (EGD) History of right knee surgery right ankle surgery Social History household members: none housing: skilled nursing Smoking Status: Current every day smoker tobacco type: cigarettes alcohol intake: never substance use type: former substance user and marijuana ROS ROS ED Review of Systems ROS Unobtainable: other Constitutional Constitutional ED: Reports lethargy; Denies chills, fever(s), sweats or weight loss Eyes Eyes: Denies blurry vision, change in vision or diplopia ENT ENT ED: Denies rhinorrhea or sore throat Cardiovascular Cardiovascular: Denies chest pain, orthopnea or racing heartbeat Respiratory/Chest Respiratory/Chest: Reports cough and dyspnea on exertion; Denies dyspnea, orthopnea or sputum Gastrointestinal Gastrointestinal: Denies abdominal pain, diarrhea, nausea or vomiting Genitourinary Genitourinary ED: Denies dysuria, hematuria or urinary frequency Musculoskeletal Musculoskeletal: Reports back pain and neck pain; Denies arthralgias or myalgias Integumentary Denies abscess, Abrasions or rash Neurologic Neurologic: Reports headache(s); Denies weakness Psychiatric Psychiatric: Denies anxiety, depression or suicidal thoughts Endocrine Endocrinology: Denies polydipsia, polyphagia or polyuria Hematologic/Lymphatic Hematologic/Lymphatic: Denies easy bleeding, easy bruising or lymphadenopathy Allergic/Immunologic Allergic/Immunologic ED: Denies mouth swelling, tongue swelling or urticaria EXAM Physical Exam Const Vital Signs: 10/19/23 00:17 10/19/23 00:29 10/19/23 01:47 Temperature 98.2 F Temperature Source Oral Pulse Rate 121 H 108 H Respiratory Rate 23 H 20 H Respiratory Effort Non-Labored Respiratory Pattern Normal Blood Pressure 117/80 118/79 Blood Pressure Mean 92 92 Pulse Ox 91 93 Oxygen Delivery Method Room Air Room Air 10/19/23 02:21 10/19/23 03:36 10/19/23 04:04 Temperature 99.0 F 98.2 F Temperature Source Pulse Rate 111 H 120 H 117 H Respiratory Rate 23 H 23 H 20 H Respiratory Effort Respiratory Pattern Blood Pressure 134/80 H 127/79 H 127/79 H Blood Pressure Mean 98 95 95 Pulse Ox 92 91 92 Oxygen Delivery Method Room Air Positive well nourished and well developed General Appearance ED: well developed and NAD HEENT Reports TM's clear and dry mucous membranes; Denies moist mucous membranes normocephalic and atraumatic; Negative for trauma or tenderness Tympanic Membrane ED: Yes TM's clear Mouth ED: Yes dry mucous membranes Mouth: dry mucous membranes Eyes PERRL and EOMs intact bilaterally General Eye ED: Negative for pale conjunctiva or scleral icterus Neck no lymphadenopathy, supple and no JVD Neck Narrative: Diffuse tenderness palpation. No bony step-offs. General: tenderness Chest Wall inspection of chest normal and palpation of chest normal Chest: Negative for tenderness Resp normal respiratory effort and clear to auscultation bilaterally Effort and Inspection: Negative for respiratory distress or pain with movement Auscultation: Negative for rhonchi, wheezes or diminished lung sounds Cardio regular rate, regular rhythm, S1 normal heart sound, S2 normal heart sound and no murmurs Peripheral Pulses: pulses 2+ throughout GI normal to inspection, nondistended, normoactive bowel sounds, soft to palpation, non-tender, non-distended and no masses Back/Spine no CVA tenderness Back/Spine Narrative: Tenderness palpation over the upper thoracic to mid thoracic spine. No bony step-offs or crepitus noted. No erythema or warmth or ecchymosis or bruising noted. Extremity normal to inspection General Extremety ED: Negative for edema General Extremity: Negative for edema Neuro oriented x3, CN's II-XII intact bilaterally, no sensory deficits noted and gait normal Sensorium / Orientation: awake, alert, oriented to person, oriented to place and oriented to time Motor Exam: strength 5/5 throughout and strength abnormal Psych mental status grossly normal Skin no rashes or lesions noted and no wounds MDM MDM MDM Narrative Medical decision making narrative: Patient presents with fall from bed x 2 and unable to get up afterwards. Complains of generalized weakness. CT scan of brain without contrast showed old stroke right parietal otherwise no acute traumatic process. CT of the C-spine did show a C2 fracture with extension into the left lateral recess concerning for possible injury to the vertebral artery and recommended CTA of the neck be obtained which was ordered. CBC with differential showed white count of 18.3 with hemoglobin 13.6 chemistries unremarkable. Chemistries unremarkable. BUN was 41 and creatinine 0.85. CPK slightly elevated to 89. Urinalysis unremarkable. Patient also had a chest x-ray that showed no acute disease process. She had thoracic spine x-rays that showed T9 superior endplate fracture of uncertain chronicity as well as T6 vertebral body height loss. Patient had T3 and T4 superior endplate compression deformities as well. Patient placed in a c-collar. Case discussed with [facility] transfer line and ED physician Dr. Ryan who accepted transfer patient to their facility. Patient was medicated with fentanyl 25 mcg IV. Lab Data Attestation: I reviewed the patient's lab results. Labs: Laboratory Results - last 24 hr 10/19/23 10/19/23 00:35 00:43 WBC 18.3 H RBC 4.99 Hgb 13.6 Hct 43.4 MCV 87.0 MCH 27.3 MCHC 31.3 L RDW Std Deviation 51.4 H RDW Coeff of Jeanine 16.6 H Plt Count TNP MPV 9.9 Immature Gran % (Auto) 0.500 Neut % (Auto) 74.1 H Lymph % (Auto) 6.2 L [place] % (Auto) 9.1 Eos % (Auto) 9.9 H Baso % (Auto) 0.2 Absolute Neuts (auto) 13.6 H Absolute Lymphs (auto) 1.13 Total Counted 100 Neutrophils % (Manual) 79 H Lymphocytes % (Manual) 12 L Monocytes % (Manual) 9 Nucleated RBC % 0 Differential Comment SCANNED Diff Path Review May foll Toxic Granulation 2+ Platelet Estimate ADEQUATE Sodium 140 Potassium 4.4 Chloride 110 H Carbon Dioxide 24.0 Anion Gap 6 BUN 41 H Creatinine 0.85 Est GFR (MDRD) Af Amer 87 Est GFR (MDRD) Non-Af 72 BUN/Creatinine Ratio 48.5 H Glucose 126 H Calcium 9.0 Total Creatine Kinase 289 H Urine Color Yellow Urine Clarity Clear Urine pH 6.0 Ur Specific [place] 1.025 Urine Protein 30 H Urine Glucose (UA) Normal Urine Ketones 5 H Urine Occult Blood 10 H Urine Nitrite Negative Urine Bilirubin Negative Urine Urobilinogen 1 H Ur Leukocyte Esterase 100 H Urine RBC 0-5 SEEN Urine WBC 0-5 SEEN Ur Squamous Epith Cells 5-10 SEEN Urine Bacteria 0 SEEN Urine Mucus 0 SEEN Radiography Diagnostic Testing: Clinical Impression(s) from Imaging Studies Brain CT 10/19/23 00:28 IMPRESSION: No acute intracranial hemorrhage in this noncontrast head CT. Sinus disease. Electronically Signed: Cornelius Rush MD at 1:41 EST , Cervical Spine CT 10/19/23 00:28 IMPRESSION: C2 fracture extending to the left transverse foramen, raising concern for possible vertebral artery injury. Recommend dedicated neck CTA to exclude vascular injury. Marked circumferential proximal to mid esophageal wall thickening, consistent with esophagitis. Electronically Signed: Cornelius Rush MD at 3:02 EST , Thoracic Spine X-Ray 10/19/23 00:28 IMPRESSION: T9 superior endplate fracture of uncertain chronicity. Cannot exclude acute fracture. T6 vertebral body height loss as well. T3-T4 superior endplate compression deformities as well. Electronically Signed: Cornelius Rush MD at 3:06 EST , Chest X-Ray 10/19/23 01:15 IMPRESSION: Chest with no acute disease. Electronically Signed: Cornelius Rush MD at 3:03 EST , Neck CTA 10/19/23 03:04 IMPRESSION: 1. C2 fracture involving the base of the dens and the left transverse process as noted on CT of the cervical spine from earlier same day. Adjacent vertebral artery appears patent with no evidence of dissection or stenosis. 2. No evidence of flow-limiting stenosis or dissection of the bilateral carotid or vertebral arteries. 3. Partially visualized proximal esophagus appears significantly thickened. Recommend follow-up to evaluate for esophagitis versus neoplasm. Electronically Signed: João Quiroga DO at 3:53 EST , 1 view chest x-ray obtained interpreted by myself as no evidence of infiltrate or pneumothorax or acute disease process. Radiology in agreement. 2 view x-rays of thoracic spine obtained interpreted by myself as degenerative changes with compression like fracture of T6 as well as T3 and T4. Radiology in agreement. EKG Initial EKG: Attestation: I personally reviewed and interpreted this EKG as follows: Comments: Sinus rhythm with rate of [address] changes Discharge Plan Triage Chief Complaint: Weakness ED Provider: Francisco Sood Dx/Rx/DC Orders Clinical Impression: Closed compression fracture of thoracic vertebra, C2 cervical fracture, Fall Prescriptions: No Action megestrol 400 mg/10 mL (40 mg/mL) suspension 200 mg PO BID Qty: 480 3RF ondansetron 4 mg tablet,disintegrating 4 mg PO Q6H Qty: 30 2RF paroxetine HCl 20 mg tablet 20 mg PO DAILY Qty: 30 2RF alprazolam [Xanax] 0.5 mg tablet 0.5 mg PO TID PRN (Reason: anxiety) Qty: 30 0RF atorvastatin 40 MG tablet 40 mg PO DAILY doxepin 100 MG capsule 100 mg PO QHS Patient Comments: TAKE 1 CAPSULE BY MOUTH ONCE DAILY AT BEDTIME ergocalciferol (vitamin D2) 1,250 mcg (50,000 unit) capsule 50,000 units PO QMONTH bupropion HCl (smoking deter) 150 mg tablet extended release 12 hr 150 mg PO BID melatonin 5 mg Tablet 10 mg PO QHS acetaminophen 500 MG tablet 2 tab PO Q8H PRN (Reason: Pain) ondansetron HCl 4 mg tablet 4 mg PO Q6H PRN (Reason: nausea and vomiting) Qty: 45 2RF Primary Care Provider: Zachary Vargas Chi Referrals: Zachary Vargas Chi, MD [Primary Care Provider] - Disposition Disposition: DC/Tx to Another Type of HCF Discharge Date/Time: 10/19/23 04:05
[2023-10-19 00:50] LABS: Bacteria 0 SEEN /hpf (None Seen); Mucous, Urine 0 SEEN /hpf (<or=2+)
[2023-10-19 00:52] LABS: Absolute Lymphocyte Count 1.13 X10^3/uL (0.83-4.51); Absolute Neutrophil Count 13.6 X10^3/uL (2.0-7.7); Basophil# 0.04 X10^3/uL; Basophil% 0.2 % (0-1); Eosinophil# 1.81 X10^3/uL; Eosinophils% 9.9 % (0-5); Hematocrit 43.4 % (37-47); Hemoglobin 13.6 g/dL (12.0-15.0); Lymphocyte # 1.13 X10^3/ul (0.83-4.51); Lymphocyte % 6.2 % (19-41); Mean Corp Hgb Conc 31.3 g/dL (32-36); Mean Corpuscular Hgb 27.3 pg (27.0-32.0); Mean Platelet Vol. 9.9 fl (6.2-12.0); Monocyte# 1.66 X10^3/uL; Monocyte% 9.1 % (0-10); NRBC Flagged by Analyzer 0 % (0-5); Neutrophil # 13.55 X10^3/uL (2.7-7.7); Neutrophil % 74.1 % (47-70); POSITIVE COUNT YES; POSITIVE DIFFERENTIAL YES; POSITIVE MORPHOLOGY YES; RBC Distribution Width CV 16.6 % (11.6-14.6); RBC Distribution Width SD 51.4 fl (35.1-43.9); Red Blood Count 4.99 M/mm3 (4.2-5.4); White Blood Count 18.3 K/mm3 (4.4-11.0)
[2023-10-19 00:52] LABS: Color, Urine Yellow (Yellow); Glucose, Dipstick Normal (Normal); Ketone-Dipstick 5 mg/dl (Negative); Leukocyte Esterase-Dipstick 100 /ul (Negative); Nitrite-Dipstick Negative (Negative); Occult Blood-Urine 10 /ul (Negative); Protein-Dipstick 30 mg/dl (Negative); Specific Gravity, Urine 1.025 (1.002-1.030); Urine Bilirubin Dipstick Negative (Negative); Urine Clarity Clear (Clear); Urine Urobilinogen 1 mg/dl (Normal)
[2023-10-19] MEDS: 0.9% Normal Saline (1000mL) 1,000 ML 1000 ML IV (00:53)
[2023-10-19 01:00] LABS: Differential Indicated SCAN CRITERIA MET
[2023-10-19 01:12] LABS: Red Blood Cells-Urine 0-5 SEEN /hpf (0-5); White Blood Cells 0-5 SEEN /hpf (0-5)
[2023-10-19 01:13] LABS: Squamous Epithelial Cells - UA 5-10 SEEN /hpf (5-10)
--- NOTE | 2023-10-19 01:15 | RAD_ITS ---
INDICATION: cough EXAMINATION/TECHNIQUE: X-RAY - XR Chest 1 View COMPARISON: 10/06/2022 chest radiograph. Findings: Single frontal view of the chest. LUNG PARENCHYMA: No acute focal airspace disease or mass lesion. PLEURA: No pleural effusion. No pneumothorax. HEART/GRE[place]SELS: Cardiomediastinal silhouette is unremarkable. BONES: Multiple old right rib fractures. RAD/Chest 1 View (Portable) IMPRESSION: Chest with no acute disease. Electronically Signed: Cornelius Rush MD at 3:03 EST ,
[2023-10-19 01:17] LABS: Anion Gap 6 (5-15); BUN 41 mg/dL (7-18); BUN/Creat Ratio 48.5 RATIO (10-20); CPK Total, Creatine Kinase 289 U/L (26-192); Chloride 110 mmol/L (98-107); Creatinine, Serum 0.85 mg/dL (0.55-1.02); EST Glomerular Filtration Rate 72 mL/min (>60); Est Glom Filt Rate - Afr Amer 87 mL/min (>60); Glucose 126 mg/dL (74-106); Potassium 4.4 mmol/L (3.5-5.1); Sodium Level 140 mmol/L (136-145)
[2023-10-19 01:47] VITALS: BP 118/79; PULSE 108; RESP 20; O2SAT 93
[2023-10-19 02:01] LABS: Differential Comment SCANNED; Lymphocyte 12 % (19-41); Monocyte 9 % (0-10); Neutrophil-Segmented 79 % (47-70); Platelet Estimate ADEQUATE (ADEQ); Toxic Granulation 2+
[2023-10-19 02:09] LABS: Total Cells Counted 100 (MANUAL DIFF)
[2023-10-19 02:21] VITALS: BP 134/80; PULSE 111; RESP 23; TEMP 37.2; O2SAT 92
--- NOTE | 2023-10-19 02:46 | PCM.HP.STD ---
HPI - General General Date of Admission: 10/19/23 Date of Service: 10/19/23 Chief Complaint: Generalized weakness, fall with injury HPI Narrative ALISTAIR MUELLER, is a 63 F who presents to the emergency room with chief complaint of pain in neck after suffering a fall 2 days ago. Patient has had neck stiffness and pain since her fall 2 days ago for which she says she was able to get up from immediately at the time. Patient lives independently has significant past medical history of stroke in 2015 and has cachexia. It was reported that she had been laying for approximately 5 hours by her boyfriend prior to coming in due to her weakness and her initial CPK was 289. Patient is currently a poor historian and not able to communicate very well. She denies any chest pain, shortness of breath fevers or chills. Her initial white count is elevated at 18,000. And she appears to be dehydrated and poorly nourished. She will be admitted for generalized weakness and will need case management to assist in discharge planning for placement posthospitalization. [facility] Medical History (Updated 10/19/23 @ 02:[address] Renny Macias MD) Alcohol use Ambulates with cane Anemia Anxiety and depression Arthritis Asthma COPD (chronic obstructive pulmonary disease) Difficulty swallowing Easy bruising Emphysema lung Encounter for screening for malignant neoplasm of lung in current smoker with 30 pack year history or greater Esophageal thickening Excessive bleeding Gammopathy GERD (gastroesophageal reflux disease) History of echocardiogram History of peptic ulcer Hyperlipidemia Hypotension Hypothyroidism Iron deficiency anemia due to chronic blood loss Left hemiplegia Nicotine abuse Osteoporosis Polycythemia vera Post-menopausal Shortness of breath on exertion Thrombocytosis Tobacco use disorder, continuous Wears dentures Home Medications atorvastatin 40 mg tablet 40 mg PO DAILY cholesterol 12/26/18 [History Last Taken 10/04/22] doxepin 100 mg capsule 100 mg PO QHS depression 12/10/19 [History Last Taken 10/04/22] bupropion HCl (smoking deter) 150 mg tablet,12 hr sustained-release(smoking deterrent) 150 mg PO BID depression 05/20/20 [History Last Taken 10/05/22] ergocalciferol (vitamin D2) 1,250 mcg (50,000 unit) capsule 50,000 units PO QMONTH supplement 05/20/20 [History Last Taken 09/28/22] acetaminophen 500 mg tablet 2 tab PO Q8H PRN Pain 10/05/22 [History Last Taken 09/23/22] melatonin 5 mg tablet 10 mg PO QHS INSOMNIA 10/05/22 [History Last Taken 10/04/22] megestrol 400 mg/10 mL (40 mg/mL) oral suspension 200 mg (5 mL) PO BID #480 mL 03/23/23 [Rx Last Taken Unknown] ondansetron HCl 4 mg tablet 4 mg PO Q6H PRN nausea and vomiting #45 tabs 04/07/23 [Rx Last Taken Unknown] alprazolam 0.5 mg tablet (Xanax) 0.5 mg PO TID PRN anxiety #30 tabs 07/23/23 [Rx Last Taken Unknown] ondansetron 4 mg disintegrating tablet 4 mg PO Q6H #30 tabs 07/23/23 [Rx Last Taken Unknown] paroxetine HCl 20 mg tablet 20 mg PO DAILY depression #30 tabs 07/23/23 [Rx Last Taken Unknown] Allergy/AdvReac Type Severity Reaction Status Date / Time No Known Allergies Allergy Verified 01/21/23 07:18 Family History Mother Diabetes Cancer Surgical History History of esophagogastroduodenoscopy (EGD) History of right knee surgery right ankle surgery Social History household members: none housing: [facility] Smoking Status: Current every day smoker tobacco type: cigarettes alcohol intake: never substance use type: former substance user and marijuana ROS Constitutional Constitutional: Reports weakness; Denies chills or fever(s) Eyes Eyes: Denies blurry vision ENT HEENT: Denies abnormal hearing Cardiovascular Cardiovascular: Denies chest pain Respiratory/Chest Respiratory/Chest: Denies cough Gastrointestinal Gastrointestinal: Denies abdominal pain Genitourinary Genitourinary: Denies dysuria Musculoskeletal Musculoskeletal: Reports muscle weakness and neck pain Integumentary Integumentary: Reports dry skin Neurologic Neurologic: Reports abnormal speech and confusion Psychiatric Psychiatric: Denies depression Vital Signs Vital Signs Vital Signs: 10/19/23 00:17 10/19/23 00:29 10/19/23 01:47 Temperature 98.2 F Temperature Source Oral Pulse Rate 121 H 108 H Respiratory Rate 23 H 20 H Respiratory Effort Non-Labored Respiratory Pattern Normal Blood Pressure 117/80 118/79 Blood Pressure Mean 92 92 Pulse Ox 91 93 Oxygen Delivery Method Room Air Room Air 10/19/23 02:21 Temperature 99.0 F Temperature Source Pulse Rate 111 H Respiratory Rate 23 H Respiratory Effort Respiratory Pattern Blood Pressure 134/80 H Blood Pressure Mean 98 Pulse Ox 92 Oxygen Delivery Method Physical Exam Const alert General Appearance: cooperative HEENT normocephalic Mouth: dry mucous membranes Eyes PERRL Neck no lymphadenopathy Lymph Lymphatic: no lymphadenopathy noted Resp normal respiratory effort and normal air movement Cardio regular rate, regular rhythm, S1 normal heart sound and S2 normal heart sound GI normal to inspection, nondistended, normoactive bowel sounds Extremity normal capillary refill Skin General Skin Exam: no breakdown Neuro no focal motor deficits and no sensory deficits noted Neuro Narrative: Speech pattern very shaky and difficult to comprehend at times Motor Exam: general weakness Psych Mood & Affect: anxious Results Lab / Micro Data 10/19/23 00:43 10/19/23 00:43 Labs: Laboratory Results - last 24 hr 10/19/23 00:35: Urine Color Yellow, Urine Clarity Clear, Urine pH 6.0, Ur Specific [place] 1.025, Urine Protein 30 H, Urine Glucose (UA) Normal, Urine Ketones 5 H, Urine Occult Blood 10 H, Urine Nitrite Negative, Urine Bilirubin Negative, Urine Urobilinogen 1 H, Ur Leukocyte Esterase 100 H, Urine RBC 0-5 SEEN, Urine WBC 0-5 SEEN, Ur Squamous Epith Cells 5-10 SEEN, Urine Bacteria 0 SEEN, Urine Mucus 0 SEEN 10/19/23 00:43: WBC 18.3 H, RBC 4.99, Hgb 13.6, Hct 43.4, MCV 87.0, MCH 27.3, MCHC 31.3 L, RDW Std Deviation 51.4 H, RDW Coeff of Jeanine 16.6 H, Plt Count TNP, MPV 9.9, Immature Gran % (Auto) 0.500, Neut % (Auto) 74.1 H, Lymph % (Auto) 6.2 L, [place] % (Auto) 9.1, Eos % (Auto) 9.9 H, Baso % (Auto) 0.2, Absolute Neuts (auto) 13.6 H, Absolute Lymphs (auto) 1.13, Total Counted 100, Neutrophils % (Manual) 79 H, Lymphocytes % (Manual) 12 L, Monocytes % (Manual) 9, Nucleated RBC % 0, Differential Comment SCANNED, Diff Path Review May foll, Toxic Granulation 2+, Platelet Estimate ADEQUATE, Sodium 140, Potassium 4.4, Chloride 110 H, Carbon Dioxide 24.0, Anion Gap 6, BUN 41 H, Creatinine 0.85, Est GFR (MDRD) Af Amer 87, Est GFR (MDRD) Non-Af 72, BUN/Creatinine Ratio 48.5 H, Glucose 126 H, Calcium 9.0, Total Creatine Kinase 289 H Micro: Microbiology 10/19/23 00:45 Nasal Secretion SARS-CoV-2 & FLU Antigen (Rapid) - Final Imagaing Radiology Impression Brain CT 10/19/23 00:28 IMPRESSION: No acute intracranial hemorrhage in this noncontrast head CT. Sinus disease. Electronically Signed: Cornelius Rush MD at 1:41 EST , Assessment & Plan Assessment/Plan (1) Severe malnutrition: (2) Generalized weakness: (3) Fall with injury: PLAN: Plan 1 fall with injury to neck approximately 2 days ago with continued pain and soreness. Patient has chronic findings of degenerative disease but no acute fractures noted. Elevated CPK likely due to prolonged state of non mobility and test found by her boyfriend. She will be hydrated with IV fluids and blood work monitored for resolution of rhabdomyolysis. 2. Generalized weakness?have physical therapy evaluate and treat, consult case management as patient is significantly weak and will likely need rehab prior to returning to home where she lives independently at this time. 3. Malnutrition?consult ear nose and throat specialist 4. DVT prophylaxis?low molecular weight heparin Charges/Coding Visit Charges Inpatient E&M: 44155 Init Hosp L2
--- NOTE | 2023-10-19 03:04 | CT_ITS ---
INDICATION: fall, c2 fracture EXAMINATION: CTA NECK - CTA Neck WO/W Contrast Injection TECHNIQUE: Helically acquired images of the neck with sagittal and coronal reconstructed images without and with IV contrast utilizing CT angiogram protocol following IV contrast. 3D reconstructions were reviewed. Individualized dose optimization techniques were used for this CT. IV contrast dosage and agent: 100 mL of [id number]-[id number]. COMPARISON: Noncontrast CT of the cervical spine from earlier same day. FINDINGS: NASOPHARYNX: Unremarkable. SUPRAHYOID NECK: Unremarkable oropharynx, oral cavity, parapharyngeal space, and retropharyngeal space. INFRAHYOID NECK: Unremarkable larynx, hypopharynx, and supraglottis. THYROID: Unremarkable. SALIVARY GLANDS: Unremarkable. LYMPH NODES: No evidence of adenopathy. VISUALIZED PORTIONS OF THE ORBITS, PARANASAL SINUSES, MASTOID AIR CELLS AND SKULL BASE: Unremarkable. BONES: As noted on the prior CT there is a C2 fracture extending from the base of the dens to the left transverse process involving the transverse foramen. THORACIC INLET: Centrilobular emphysematous changes of the lungs. Partially visualized proximal esophagus is significantly thickened with inspissated material within the lumen. AORTIC ARCH AND BRANCHES: No significant stenosis of the visualized portions. RIGHT CCA: No significant stenosis. No dissection. RIGHT ICA: No significant stenosis. No dissection. LEFT CCA: No significant stenosis. No dissection. LEFT ICA: No significant stenosis. No dissection. Ectasia of the proximal left ICA measuring approximately 8 mm in diameter. RIGHT VERTEBRAL ARTERY: No significant stenosis. No dissection. LEFT VERTEBRAL ARTERY: No significant stenosis. No dissection. NECK SOFT TISSUES: Unremarkable. CT/CTA Neck W/WO Contrast IMPRESSION: 1. C2 fracture involving the base of the dens and the left transverse process as noted on CT of the cervical spine from earlier same day. Adjacent vertebral artery appears patent with no evidence of dissection or stenosis. 2. No evidence of flow-limiting stenosis or dissection of the bilateral carotid or vertebral arteries. 3. Partially visualized proximal esophagus appears significantly thickened. Recommend follow-up to evaluate for esophagitis versus neoplasm. Electronically Signed: João Quiroga DO at 3:53 EST ,
[2023-10-19] MEDS: fentaNYL 100 MCG/2 ML Ampul 25 MCG IV (03:28)
[2023-10-19 03:36] VITALS: BP 127/79; PULSE 120; RESP 23; O2SAT 91
[2023-10-19 04:04] VITALS: BP 127/79; PULSE 117; RESP 20; TEMP 36.8; O2SAT 92
--- NOTE | 2023-10-19 04:33 | ED.RN ---
CALLED SISTER ALEAH SALCEDO AT [phone] AND LEFT MESSAGE TO CALL BACK
[2023-10-19 13:02] LABS: Pathologist Review Reviewed
== END 2023-10-19 04:05 | disposition other institution (70) ==
PROVIDERS: Emergency Provider Emergency Medicine; PCP Family Medicine Geriatric Medicine; Visit Provider Emergency Medicine
DX: S12.101A Unspecified nondisplaced fracture of second cervical vertebra, initial encounter for closed fracture (principal); S22.030A Wedge compression fracture of third thoracic vertebra, initial encounter for closed fracture; S22.040A Wedge compression fracture of fourth thoracic vertebra, initial encounter for closed fracture; S22.050A Wedge compression fracture of T5-T6 vertebra, initial encounter for closed fracture; E43 Unspecified severe protein-calorie malnutrition; J43.9 Emphysema, unspecified; R51.9 Headache, unspecified; F17.210 Nicotine dependence, cigarettes, uncomplicated; E78.5 Hyperlipidemia, unspecified; W19.XXXA Unspecified fall, initial encounter
CPT/HCPCS: 51702; 70450; 70498; 71045; 72070; 72125; 80048; 81001; 82550; 85025; 87428; 93005; 96361; 96374; 99285; Q9967

== ENCOUNTER 2023-11-10 19:34 | Inpatient (IN) | payer MEDICAID, SELFPAY ==
[2023-11-10] VITALS (9 sets, daily range): BP systolic 98–125; BP diastolic 57–97; PULSE 111–135; RESP 12–48; TEMP 36.1–36.6; O2SAT 84–91; BMI 17.2; BMI 15.2
--- NOTE | 2023-11-10 20:29 | ED.VIS.DYS ---
HPI History of Present Illness Chief Complaint: Shortness of Breath Narrative Narrative: 63-year-old female presenting with shortness of breath. Patient has a history of CVA, malnutrition, anxiety, anemia, status post PEG tube placement. 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 She has a recent fall with C-spine fracture which she was transferred to [facility] for. Apparently she has been [facility] on [facility] L of oxygen and over the course the last evening she started to be hypoxic. Her family member states that she was vomiting chili and could not swallow this that she was trying to help her clear her airway and she was able to do this with the help of the nursing staff however overnight her breathing got worse. Today she had a similar episode where she ate some food and gagged on it. She was helped to suction and apparently her oxygen was turned up several times today. The patient states she could not tell what they return to get up to. Patient states he has a headache which has been there since she has received right injury. She has no recent falls since then. Denies fevers, chills. [facility] Medical History Alcohol use Ambulates with cane Anemia Anxiety and depression Arthritis Asthma COPD (chronic obstructive pulmonary disease) Difficulty swallowing Easy bruising Emphysema lung Encounter for screening for malignant neoplasm of lung in current smoker with 30 pack year history or greater Esophageal thickening Excessive bleeding Gammopathy GERD (gastroesophageal reflux disease) History of echocardiogram History of peptic ulcer Hyperlipidemia Hypotension Hypothyroidism Iron deficiency anemia due to chronic blood loss Left hemiplegia Nicotine abuse Osteoporosis Polycythemia vera Post-menopausal Shortness of breath on exertion Thrombocytosis Tobacco use disorder, continuous Wears dentures Home Medications atorvastatin 40 mg tablet 40 mg PO DAILY cholesterol 12/26/18 [History Last Taken 10/04/22] doxepin 100 mg capsule 100 mg PO QHS depression 12/10/19 [History Last Taken 10/04/22] bupropion HCl (smoking deter) 150 mg tablet,12 hr sustained-release(smoking deterrent) 150 mg PO BID depression 05/20/20 [History Last Taken 10/05/22] ergocalciferol (vitamin D2) 1,250 mcg (50,000 unit) capsule 50,000 units PO QMONTH supplement 05/20/20 [History Last Taken 09/28/22] acetaminophen 500 mg tablet 2 tab PO Q8H PRN Pain 10/05/22 [History Last Taken 09/23/22] melatonin 5 mg tablet 10 mg PO QHS INSOMNIA 10/05/22 [History Last Taken 10/04/22] megestrol 400 mg/10 mL (40 mg/mL) oral suspension 200 mg (5 mL) PO BID #480 mL 03/23/23 [Rx Last Taken Unknown] ondansetron HCl 4 mg tablet 4 mg PO Q6H PRN nausea and vomiting #45 tabs 04/07/23 [Rx Last Taken Unknown] alprazolam 0.5 mg tablet (Xanax) 0.5 mg PO TID PRN anxiety #30 tabs 07/23/23 [Rx Last Taken Unknown] ondansetron 4 mg disintegrating tablet 4 mg PO Q6H #30 tabs 07/23/23 [Rx Last Taken Unknown] paroxetine HCl 20 mg tablet 20 mg PO DAILY depression #30 tabs 07/23/23 [Rx Last Taken Unknown] albuterol sulfate 2.5 mg/0.5 mL solution for nebulization 2.5 mg inhalation Q4H PRN shortness of breath or wheezing 11/10/23 [History Last Taken Unknown] aspirin 81 mg capsule 81 mg PO DAILY 11/10/23 [History Last Taken Unknown] cyclobenzaprine 10 mg tablet 10 mg PO QHS 11/10/23 [History Last Taken Unknown] hydroxyzine HCl 25 mg tablet 25 mg PO Q8H PRN anxiety 11/10/23 [History Last Taken Unknown] Allergy/AdvReac Type Severity Reaction Status Date / Time No Known Allergies Allergy Verified 01/21/23 07:18 Family History Mother Diabetes Cancer Surgical History History of esophagogastroduodenoscopy (EGD) History of right knee surgery right ankle surgery Social History household members: none housing: care home Smoking Status: Current every day smoker tobacco type: cigarettes alcohol intake: never substance use type: former substance user and marijuana ROS ROS ED Constitutional Constitutional ED: Denies chills, fever(s) or sweats Eyes Eyes: Denies blurry vision or change in vision ENT ENT ED: Denies ear pain or sore throat Cardiovascular Cardiovascular: Denies chest pain, palpitations or racing heartbeat Respiratory/Chest Respiratory/Chest: Reports cough and dyspnea; Denies sputum Gastrointestinal Gastrointestinal: Reports nausea; Denies abdominal pain, constipation, diarrhea or vomiting Genitourinary Genitourinary ED: Denies dysuria, hematuria or urinary frequency Musculoskeletal Musculoskeletal: Denies arthralgias, myalgias or neck pain Integumentary Denies abscess, Abrasions or rash Neurologic Neurologic: Reports headache(s); Denies paresthesias or weakness Psychiatric Psychiatric: Denies anxiety, depression, suicidal ideation or suicidal thoughts Endocrine Endocrinology: Denies polydipsia or polyuria EXAM Physical Exam Const Vital Signs: 11/10/23 19:35 11/10/23 19:39 11/10/23 19:42 Temperature 97 F L 97 F L Temperature Source Temporal Temporal Pulse Rate 113 H 111 H Respiratory Rate 36 H 18 Respiratory Effort Short of Breath Labored Blood Pressure 125/78 H 118/77 Blood Pressure Mean 93 90 Pulse Ox 90 90 Oxygen Delivery Method Non-Rebreather Non-Rebreather Non-Rebreather Oxygen Flow Rate (L/min) 15 15 15 Fraction of Inspired Oxygen (FIO2) 11/10/23 20:35 11/10/23 21:15 11/10/23 20:07 Temperature Temperature Source Pulse Rate 117 H Respiratory Rate 26 H Respiratory Effort Blood Pressure Blood Pressure Mean Pulse Ox 91 Oxygen Delivery Method Non-Rebreather Oxygen Flow Rate (L/min) 15 Fraction of Inspired Oxygen (FIO2) 80 65 11/10/23 20:34 11/10/23 21:00 11/10/23 22:36 Temperature Temperature Source Pulse Rate 113 H 121 H 131 H Respiratory Rate 36 H 34 H 48 H Respiratory Effort Blood Pressure 117/69 125/75 H 98/66 Blood Pressure Mean 85 91 76 Pulse Ox 89 87 90 Oxygen Delivery Method Non-Rebreather Bi-pap Non-Rebreather Oxygen Flow Rate (L/min) 15 15 Fraction of Inspired Oxygen (FIO2) 11/10/23 22:00 Temperature Temperature Source Pulse Rate 131 H Respiratory Rate 44 H Respiratory Effort Blood Pressure 122/97 H Blood Pressure Mean 105 Pulse Ox 84 Oxygen Delivery Method Non-Rebreather Oxygen Flow Rate (L/min) Fraction of Inspired Oxygen (FIO2) Positive well nourished General Appearance ED: NAD; Negative for pallor HEENT Reports moist mucous membranes atraumatic Eyes PERRL and EOMs intact bilaterally Neck no lymphadenopathy and supple Resp Resp Narrative: Tachypneic, hypoxic. Cardio regular rhythm Rate: tachycardic GI non-tender Neuro oriented x3 and CN's II-XII intact bilaterally Sensorium / Orientation: alert Motor Exam: strength 5/5 throughout Psych mental status grossly normal Skin General Skin Exam: Negative for jaundice or pallor MDM MDM MDM Narrative Medical decision making narrative: Presenting hypoxic from the care home. Apparently she had choked on some food overnight. Limited initially was chili and then something she ate for lunch today and she choked on this again. On arrival she is on 15 L nonrebreather and apparently has been on 2 L - 3 L at the facility since she was released from [facility]. At that point she had a c-collar placed. She has a C2 fracture which is nondisplaced. She was reportedly told she has a mass somewhere in her chest as well as a malignancy in her lung. She does not have much information on this. Patient is a very poor informant but her sister is here and as able to give information. Apparently they are waiting until she improves to do biopsies. Suspect highly that the patient has aspirated. Differential includes ACS, COVID, influenza, aspiration pneumonia, malignancy, anemia, dehydration, electrolyte abnormalities, sepsis CBC was obtained to assess white blood cell count, hemoglobin, platelets. BMP to assess renal function, electrolytes, glucose. LFTs to assess liver function. High-sensitivity troponin and EKG to assess for ischemia. X-ray was obtained to rule out pneumonia. Chest x-ray on my interpretation shows no obvious infiltrates. EKG on my interpretation shows tachycardia with a ventricular to 150 bpm without sign of ischemic change or ectopy. High-sensitivity troponin came back at 9. Leukocytosis of 18.3 with left shift. Renal function near baseline. LFTs are normal. Patient was started on BiPAP out of concern for her work of breathing. She tells me initially she would want no intubation and is amenable to BiPAP although she does have some trouble with this. At 1 point she states she was going to vomit so we remove this. She felt more comfortable without it for short while. CT scan of the chest without contrast as the patient did not have very good IV access and the CT shows a distended dilated esophagus with bilateral infiltrates at bases interpreted as pneumonia. Reviewed the CT with Dr. Negrete who stated that she would be a poor surgical candidate and had concerns that if we keep her here and would have trouble with anesthesia, intubation, in addition to the fact that she has C-spine fracture which makes her a poor candidate for even intubation. Discussed this with her and her sister at bedside. Discussed that she would likely need to be intubated at a minimum and since she did not want this all of the other invasive procedures that she would want would be something that were not probably not obtainable. In addition to this she is already showing signs that she is getting tired from a respiratory standpoint at this point we decided to make her comfortable. She is comfortable with her sister making decisions and signing paperwork to make her DNR as she wants to just be kept comfortable. Appropriate DNR paperwork was signed. Patient initially given some Ativan but she is very anxious. On reevaluation she is not tolerating CPAP very well and is available she was given morphine and Zofran as she was complaining of some shoulder pain bilaterally. Patient was discussed with the hospice on-call who cannot have somebody come see her for at least 24 hours and given this we will have her admitted to the hospital for palliative care. Impression: 1. Aspiration pneumonia 2. Esophageal mass 3. Leukocytosis 4. Hypoxic respiratory failure Lab Data Attestation: I reviewed the patient's lab results. Labs: Laboratory Results - last 24 hr 11/10/23 21:08 WBC 18.3 H RBC 4.27 Hgb 11.5 L Hct 37.9 MCV 88.8 MCH 26.9 L MCHC 30.3 L RDW Std Deviation 55.4 H RDW Coeff of Jeanine 17.2 H Plt Count 739 H MPV 8.8 Immature Gran % (Auto) 0.400 Neut % (Auto) 82.0 H Lymph % (Auto) 9.2 L [place] % (Auto) 6.9 Eos % (Auto) 0.8 Baso % (Auto) 0.7 Absolute Neuts (auto) 15.0 H Absolute Lymphs (auto) 1.69 Nucleated RBC % 0 Sodium 141 Potassium 3.6 Chloride 108 H Carbon Dioxide 29.0 Anion Gap 4 L BUN 14 Creatinine 0.73 Estim Creat Clear Calc 50.58 Est GFR (MDRD) Af Amer 103 Est GFR (MDRD) Non-Af 85 BUN/Creatinine Ratio 19.1 Glucose 126 H Calcium 9.7 Total Bilirubin 0.30 AST 9 L ALT 11 L Alkaline Phosphatase 142 H Troponin I High Sens 9 Total Protein 7.7 Albumin 2.9 L Globulin 4.8 H Albumin/Globulin Ratio 0.6 L ABG Data ABG results: ABG 11/10/23 20:55 Specimen Type DANIEL Sample Site Not entered O2 % 80.0 VBG pH 7.50 H VBG pO2 104 H VBG HCO3 24 VBG Total CO2 25 VBG O2 Sat (Calc) 99 H VBG Base Excess 1 POC Mix VBG pCO2 Pt Tmp 31.3 L O2 Delivery Device BiPAP Clinical Comments 14. 6. 80% Radiography Diagnostic Testing: Clinical Impression(s) from Imaging Studies Chest X-Ray 11/10/23 20:30 IMPRESSION: Emphysema without pneumonia or atelectasis. Electronically Signed: Yayo Bingham MD at 20:41 EST , Chest CT 11/10/23 21:01 IMPRESSION: 1. Atypical infectious process involving both lower lobes and inferior lingula. 2. Chronic compression fractures of thoracic spine. Electronically Signed: Landon Landry MD at 22:29 EST , Discharge Plan Triage Chief Complaint: Shortness of Breath ED Provider: Osmel Hernandez Dx/Rx/DC Orders Prescriptions: No Action megestrol 400 mg/10 mL (40 mg/mL) suspension 200 mg PO BID Qty: 480 3RF ondansetron 4 mg tablet,disintegrating 4 mg PO Q6H Qty: 30 2RF paroxetine HCl 20 mg tablet 20 mg PO DAILY Qty: 30 2RF alprazolam [Xanax] 0.5 mg tablet 0.5 mg PO TID PRN (Reason: anxiety) Qty: 30 0RF atorvastatin 40 MG tablet 40 mg PO DAILY doxepin 100 MG capsule 100 mg PO QHS Patient Comments: TAKE 1 CAPSULE BY MOUTH ONCE DAILY AT BEDTIME ergocalciferol (vitamin D2) 1,250 mcg (50,000 unit) capsule 50,000 units PO QMONTH bupropion HCl (smoking deter) 150 mg tablet extended release 12 hr 150 mg PO BID melatonin 5 mg Tablet 10 mg PO QHS acetaminophen 500 MG tablet 2 tab PO Q8H PRN (Reason: Pain) albuterol sulfate 2.5 mg/0.5 mL solution for nebulization 2.5 mg inhalation Q4H PRN (Reason: shortness of breath or wheezing) aspirin 81 mg capsule 81 mg PO DAILY cyclobenzaprine 10 mg tablet 10 mg PO QHS hydroxyzine HCl 25 mg tablet 25 mg PO Q8H PRN (Reason: anxiety) ondansetron HCl 4 mg tablet 4 mg PO Q6H PRN (Reason: nausea and vomiting) Qty: 45 2RF Primary Care Provider: Zachary Vargas Chi Referrals: Zachary Vargas Chi, MD [Primary Care Provider] -
--- NOTE | 2023-11-10 20:30 | RAD_ITS ---
STUDY: X-RAY CHEST REASON FOR EXAM: Female, 63 years old. hypoxia TECHNIQUE: Single AP portable view of the chest. COMPARISON: 10/19/2023 FINDINGS: There is hyperinflation of the lungs consistent with chronic obstructive lung disease (COPD). There is no demonstrated pleural abnormality. Normal size heart. Normal mediastinum and luc. Normal visualized pulmonary arteries. Normal visualized aortic arch and descending thoracic aorta. Normal visualized thoracic spine. Multiple healed rib fractures bilaterally. There is no demonstrated abnormality of the visualized soft tissue structures of the upper abdomen. RAD/Chest 1 View (Portable) IMPRESSION: Emphysema without pneumonia or atelectasis. Electronically Signed: Yayo Bingham MD at 20:41 EST ,
[2023-11-10 21:00] LABS: Blood Gas Specimen Type VEN; Comment 14. 6. 80%; O2 Delivery Device BiPAP; SITE Not entered; VBG BASE EXCESS 1 mmol/L (-1.0-3.5); VBG Bicarbonate 24 mmol/L (22-26); VBG PO2 104 mmHg (25-40); VBG SO2 99 % (50-70); VBG TCO2 25 mmol/L (23-33); VBG pCO2 31.3 mmHg (41-51)
--- NOTE | 2023-11-10 21:01 | CT_ITS ---
EXAM: CT CHEST WITHOUT INTRAVENOUS CONTRAST CLINICAL INDICATION: cough TECHNIQUE: Helically acquired images were obtained of the chest without intravenous contrast. CTDIvol = ( 6.20 ) mGy, DLP = ( 231.16 ) mGycm This CT exam was performed using one or more of the following dose reduction techniques: automated exposure control, adjustment of the mA and/or kV according to patient size, and/or use of iterative reconstruction technique. This report was created using [employer] technology. COMPARISON: April 14, 2022 CT FINDINGS: LUNGS AND PLEURAL SPACES: Atypical infectious ill-defined nodules involving the left lower lobe and inferior lingula and peripheral aspect of the right lower lobe. Moderate centrilobular emphysema. Partial atelectasis at the posterior aspect of the right lower lobe. No pleural effusion or thickening. No pneumothorax. HEART: Unremarkable. Heart size is normal. No pericardial effusion. MEDIASTINUM: Patulous appearance of the fluid-filled esophagus with no definite or significant esophageal wall thickening identified. No mediastinal or hilar adenopathy. No hiatal hernia. THYROID: Unremarkable. No thyroid lesions. BONES/JOINTS: Multiple compression fractures of the thoracic spine with no underlying pathology or retropulsion. These all appear chronic. The most severe fracture is located at the T5 level. No suspicious lytic or blastic abnormality. VASCULATURE: Unremarkable. Thoracic aorta is non-dilated. CT/Chest without Contrast IMPRESSION: 1. Atypical infectious process involving both lower lobes and inferior lingula. 2. Chronic compression fractures of thoracic spine. Electronically Signed: Landon Landry MD at 22:29 EST ,
[2023-11-10 21:14] LABS: Absolute Lymphocyte Count 1.69 X10^3/uL (0.83-4.51); Basophil# 0.12 X10^3/uL; Basophil% 0.7 % (0-1); Eosinophil# 0.14 X10^3/uL; Eosinophils% 0.8 % (0-5); Hematocrit 37.9 % (37-47); Hemoglobin 11.5 g/dL (12.0-15.0); Lymphocyte # 1.69 X10^3/ul (0.83-4.51); Lymphocyte % 9.2 % (19-41); Mean Corp Hgb Conc 30.3 g/dL (32-36); Mean Corpuscular Hgb 26.9 pg (27.0-32.0); Mean Corpuscular Volume 88.8 fL (81-99); Mean Platelet Vol. 8.8 fl (6.2-12.0); Monocyte# 1.26 X10^3/uL; Monocyte% 6.9 % (0-10); NRBC Flagged by Analyzer 0 % (0-5); Neutrophil # 15.01 X10^3/uL (2.7-7.7); Platelet Count 739 K/mm3 (150-450); RBC Distribution Width CV 17.2 % (11.6-14.6); RBC Distribution Width SD 55.4 fl (35.1-43.9); Red Blood Count 4.27 M/mm3 (4.2-5.4); White Blood Count 18.3 K/mm3 (4.4-11.0)
[2023-11-10] MEDS: Metoclopramide 10 MG/2 ML Vial IV (21:27)
[2023-11-10 21:33] LABS: ALB/GLOB Ratio 0.6 RATIO (0.9-2.4); AST(SGOT) 9 U/L (15-37); Alanine Aminotransfer ALT/SGPT 11 U/L (13-56); Albumin, Serum 2.9 g/dL (3.2-5.0); Alkaline Phosphatase 142 U/L (45-117); Anion Gap 4 (5-15); BUN 14 mg/dL (7-18); BUN/Creat Ratio 19.1 RATIO (10-20); Calcium,Total 9.7 mg/dL (8.5-10.1); Chloride 108 mmol/L (98-107); Creatinine, Serum 0.73 mg/dL (0.55-1.02); EST Glomerular Filtration Rate 85 mL/min (>60); Est Glom Filt Rate - Afr Amer 103 mL/min (>60); Estimated Creatinine Clearance 50.58 ml/min; Globulin 4.8 g/dL (2.2-4.2); Glucose 126 mg/dL (74-106); Potassium 3.6 mmol/L (3.5-5.1); Protein, Total 7.7 g/dL (6.4-8.2); Sodium Level 141 mmol/L (136-145); Troponin-I HS 9 pg/mL (3.0-54.0)
[2023-11-10] MEDS: LORazepam 2 MG/ML Syringe 1 MG IV (22:00)
[2023-11-10] MEDS: Ondansetron 4 MG/2 ML Vial IV (22:00)
--- NOTE | 2023-11-10 22:12 | ED.RN ---
This nurse spoke with [facility] Triage report given. No available hospice nurse this evening will need to follow up in the morning for Hospice admission. charge nurse and Dr. Hernandez updated.
--- OUTSIDE RECORDS SUMMARY | 2023-11-10 22:16 | XMS RPT_ITS | CCD ---
Author Name Unknown Address [address] [place] [id number] Organization [facility] Care Team Providers Care Soldering Machine Tender Name Role Phone KOMAL ANDINO Attending Unavailabl e KOMAL ANDINO Admitting Unavailabl e YOON RIVERA [facility] Unavailable ELI MALDONADO Consulting Unavailabl e Problems Problem Classification Problem Date Documented Da te Episodic/Chronic E Codes: Fall (1 source) Unspecified fall, initial encounter; Translations: [Fall, initial encounter] Onset: 10-19-2023 Episodic Other fractures (1 source) Unspecified nondisplaced fracture of second cervical vertebra, initial encounter for closed fracture; Translations: [Closed nondisplaced fracture of second cervical vertebra, unspecified fracture morphology, initial encounter ([facility])] Onset: 10-23-2023 Episodic Results Test Name Value Interpretation Reference Range Facil ity Encounters Encounter Date Encounter Type Care Provider Facility Start: 10-19-2023 End: 10-23-2023 Evaluation and management of inpatient KOMAL ANDINO Facility:[facility] Procedures Date Procedure Procedure Detail Performing Clinician Start: 10-19-2023 Antibody screen KOMAL Trammell [facility] Payers Date Payer Category Payer Medicaid [id number] Clinical Notes 10-20-2023 to 10-23-2023 Note Date & Type Note Facility 10-23-2023 Note HNO ID: [id number] Author: Marley Sigala RN Service: Nursing Author Type: Registered Nurse Type: Nursing Progress Note Filed: 10/23/2023 2:07 PM Note Text: Report called and given to Shanelle [address] Transport scheduled for 430PM. [facility] 10-23-2023 Note HNO ID: [id number] Author: Jd Beaver PA-C Service: General Surgery Author Type: Physician Supervisor Paper Testing Type: Progress Notes Filed: 10/23/2023 7:58 AM Note Text: Trauma Surgery Progress Note SERVICE DATE: 10/23/2023 Trauma Service Pager: For questions or concerns Mon-Fri 6a-5p please page [phone]. After 5pm and on Weekends and Holidays, please page [phone] if in ICU or [phone] if on RNF. SUBJECTIVE: NAEON. Patient was awake and alert. Pain is currently controlled. Awaiting insurance authorization for SNF placement. Patient is tolerating her diet without N/V. OBJECTIVE: Vitals: Temp (24hrs), Av.5 ?C (97.7 ?F), Min:36.3 ?C (97.3 ?F), Max:36.9 ?C (98.4 ?F) BP 108/71 Pulse 80 Temp 36.6 ?C (97.9 ?F) (Oral) Resp 16 Ht 152.4 cm (5') Wt 42.8 kg (94 lb 5.7 oz) SpO2 99% BMI 18.43 kg/m? O2 Therapy: Nasal Cannula IANDO: Date 10/22/23699 - 10/23/23 0659 10/23/23 07 - 10/24/23 0659 Shift 9372-0331 9449-6273 1748-7539 24 Hour Total 2774-3419 3384-0808 6004-7054 24 Hour Total INTAKE PO 250 250 PO 250 250 Shift Total 250 250 OUTPUT Urine 900 900 Urine Incontinence/Not Saved 1 x 1 x Urine Not Saved. 1 x 1 x Output ( External Collection Device 10/20/23 1637) 900 900 Shift Total 900 900 Weight (kg) 42.8 42.8 42.8 42.8 42.8 42.8 42.8 42.8 MEDICATIONS: Current Facility-Administered Medications Medication Dose Route Frequency morphine 2 mg injection 2 mg INTRAVENOUS q 6 H PRN oxyCODONE IR 5-10 mg tab(s) (ROXICODONE) 5-10 mg ORAL q 4 H PRN senna-docusate 8.6-50 mg 1 tablet (SENNA-S) 1 tablet ORAL BID enoxaparin 40 mg injection (LOVENOX) 40 mg SUBCUTANEOUS q 24 HR NaCl 0.9% iv flush bag 20 mL INTRAVENOUS PRN atorvastatin 40 mg tab(s) (LIPITOR) 40 mg ORAL AT BEDTIME famotidine 40 mg tab(s) (PEPCID) 40 mg ORAL DAILY buPROPion SR 150 mg tab(s) (WELLBUTRIN SR) 150 mg ORAL BID melatonin 9 mg tab(s) 9 mg ORAL AT BEDTIME cyclobenzaprine 10 mg tab(s) (FLEXERIL) 10 mg ORAL AT BEDTIME doxepin 100 mg cap(s) (SINEquan) 100 mg ORAL AT BEDTIME ondansetron 4 mg tab(s) (ZOFRAN) 4 mg ORAL q 6 H PRN Or ondansetron (PF) 4 mg injection (ZOFRAN) 4 mg INTRAVENOUS q 6 H PRN acetaminophen 1,000 mg tab(s) (TYLENOL) 1,000 mg ORAL/FEEDING TUBE q 6 H Labs: Recent Labs 10/23/23 0228 10/22/23 0036 NA 140 138 K 4.0 3.7 CHLOR 104 104 CO2 28 26 BUN 13 13 CREAT 0.75 0.67 GLUC 94 94 ANION 8* 8* CA 8.7 8.2* WBC 10.85 8.45 HB 11.4* 11.1* HCT 35.5* 34.9* PLT 427* 394 PHYSICAL EXAM: Genl: Appears malnourished. No acute distress. Resting comfortably. Head/Face: Normocephalic. Atraumatic. Eyes: EOMI. Sclera not icteric, not injected Neck: C-collar in place. Resp: Lung sounds are clear bilat. No wheezes. No rales. Breathing is non-labored on 2L NC @99%. CVS: HR as above; 2+ pulses at RA bilat. GI: Abdomen is soft, non-tender, not distended. No peritonitis. MSK: Extremities without clubbing, cyanosis, edema. Normal ROM x 2. Chronic left hand contracture and left foot drop. Skin: Warm and dry. Not jaundiced. Neuro: AANDOx3. Strength and sensation normal. ENGLE. Psych: Normal mood. Normal affect. Appropriate insight into current situation. ASSESSMENT AND PLAN: Assessment Active Hospital Problems Diagnosis Date Noted Fall at home, initial encounter 10/19/2023 Closed nondisplaced fracture of second cervical vertebra (HCC) 10/21/2023 Esophageal mass 10/21/2023 Closed wedge compression fracture of T4 vertebra (HCC) 10/21/2023 Hypokalemia 10/21/2023 Severe protein-calorie malnutrition (HCC) 10/20/2023 Nicotine use disorder, F17.2 05/25/2020 63 year old female s/p GLF on 10/19; transferred from [place] [facility]. Patient was on ground for 5 hours. Imaging performed: CT HN, CTA HN, CXR, XR T-spine (10/19) @ [place] CT CAPTLspine, MRI CTspine (10/19) XR esophagram (10/21) Traumatic Injuries: Acute nondisplaced fracture through the base of the dens, with minimal edema along the fracture margins Mild edema along the anterior longitudinal ligaments of C1-C4, transverse/cruciform ligaments and tectorial membrane, and posterior atlantoaxial membrane, likely representing ligamentous injury. Mild/partial tears not excluded. Mild edema/ligamentous injury and possible partial tear along the alar ligament. Small 6 x 6 x 15 mm abnormal signal and thickening along the left posterior longitudinal ligament, which may represent a tear and/or small blood products. There is new moderate to severe anterior wedge compression fracture of the T4 vertebral body, interval progression severe anterior wedge compression fracture of the T5, mild anterior wedge compression fracture of T7 vertebra, new moderate anterior wedge compression fracture of the T10 vertebral body, and minimal anterior wedging of the T12-L1 vertebral body. Operations/Procedures: 1. None Care Plan: C2 fracture: Neurosurgery consulted Non-op management C-collar at all t (more content not included)... [facility] 10-22-2023 Note HNO ID: [id number] Author: Jd Beaver PA-C Service: General Surgery Author Type: Physician Supervisor Paper Testing Type: Progress Notes Filed: 10/22/2023 11:02 AM Note Text: Trauma Surgery Progress Note SERVICE DATE: 10/22/2023 Trauma Service Pager: For questions or concerns Mon-Fri 6a-5p please page [phone]. After 5pm and on Weekends and Holidays, please page [phone] if in ICU or [phone] if on RNF. SUBJECTIVE: Patient denied any new or acute events. Her pain is mildly improved from yesterday. She did better with speech therapy today and has been cleared for a dental soft diet. No plans for any further inpatient workup or intervention regarding her esophageal mass and/or lung nodules. Will proceed with SNF placement at this time. OBJECTIVE: Vitals: Temp (24hrs), Av.6 ?C (97.9 ?F), Min:36.4 ?C (97.5 ?F), Max:36.9 ?C (98.4 ?F) BP 95/54 Pulse 99 Temp 36.6 ?C (97.9 ?F) (Oral) Resp 18 Ht 152.4 cm (5') Wt 42.8 kg (94 lb 5.7 oz) SpO2 97% BMI 18.43 kg/m? O2 Therapy: Room Air IANDO: Date 10/21/23 07 - 10/22/2365810/22/23 07 - 10/23/23 0659 Shift 1912-9285 9050-4587 8004-3722 24 Hour Total 8379-5804 0240-1261 9152-8757 24 Hour Total INTAKE PO 120 120 PO 120 120 Shift Total 120 120 OUTPUT Urine 250 200 450 Void (ml) 250 200 450 Urine Incontinence/Not Saved 1 x 1 x Shift Total 250 200 450 Weight (kg) 42.8 42.8 42.8 42.8 42.8 42.8 42.8 42.8 MEDICATIONS: Current Facility-Administered Medications Medication Dose Route Frequency oxyCODONE IR 5-10 mg tab(s) (ROXICODONE) 5-10 mg ORAL q 6 H PRN senna-docusate 8.6-50 mg 1 tablet (SENNA-S) 1 tablet ORAL BID enoxaparin 40 mg injection (LOVENOX) 40 mg SUBCUTANEOUS q 24 HR NaCl 0.9% iv flush bag 20 mL INTRAVENOUS PRN atorvastatin 40 mg tab(s) (LIPITOR) 40 mg ORAL AT BEDTIME famotidine 40 mg tab(s) (PEPCID) 40 mg ORAL DAILY buPROPion SR 150 mg tab(s) (WELLBUTRIN SR) 150 mg ORAL BID melatonin 9 mg tab(s) 9 mg ORAL AT BEDTIME cyclobenzaprine 10 mg tab(s) (FLEXERIL) 10 mg ORAL AT BEDTIME doxepin 100 mg cap(s) (SINEquan) 100 mg ORAL AT BEDTIME ondansetron 4 mg tab(s) (ZOFRAN) 4 mg ORAL q 6 H PRN Or ondansetron (PF) 4 mg injection (ZOFRAN) 4 mg INTRAVENOUS q 6 H PRN acetaminophen 1,000 mg tab(s) (TYLENOL) 1,000 mg ORAL/FEEDING TUBE q 6 H Labs: Recent Labs 10/22/23 0036 10/21/23 0451 NA 138 140 K 3.7 3.1* CHLOR 104 107* CO2 26 25 BUN 13 13 CREAT 0.67 0.62 GLUC 94 77 ANION 8* 8* CA 8.2* 8.5 WBC 8.45 8.06 HB 11.1* 11.2* HCT 34.9* 35.9* PLT 394 369 PHYSICAL EXAM: Genl: Appears malnourished. No acute distress. Resting comfortably. Head/Face: Normocephalic. Atraumatic. Eyes: EOMI. Sclera not icteric, not injected Neck: C-collar in place. Resp: Lung sounds are clear bilat. No wheezes. No rales. Breathing is non-labored on RA @97%. CVS: HR as above; 2+ pulses at RA bilat. GI: Abdomen is soft, non-tender, not distended. No peritonitis. MSK: Extremities without clubbing, cyanosis, edema. Normal ROM x 2. Chronic left hand contracture and left foot drop. Skin: Warm and dry. Not jaundiced. Neuro: AANDOx3. Strength and sensation normal. ENGLE. Psych: Normal mood. Normal affect. Appropriate insight into current situation. ASSESSMENT AND PLAN: Assessment Active Hospital Problems Diagnosis Date Noted Fall at home, initial encounter 10/19/2023 Closed nondisplaced fracture of second cervical vertebra (HCC) 10/21/2023 Esophageal mass 10/21/2023 Closed wedge compression fracture of T4 vertebra (HCC) 10/21/2023 Hypokalemia 10/21/2023 Severe protein-calorie malnutrition (HCC) 10/20/2023 Nicotine use disorder, F17.2 05/25/2020 63 year old female s/p GLF on 10/19; transferred from [place] ED. Patient was on ground for 5 hours. Imaging performed: CT HN, CTA HN, CXR, XR T-spine (10/19) @ [place] CT CAPTLspine, MRI CTspine (10/19) XR esophagram (10/21) Traumatic Injuries: Acute nondisplaced fracture through the base of the dens, with minimal edema along the fracture margins Mild edema along the anterior longitudinal ligaments of C1-C4, transverse/cruciform ligaments and tectorial membrane, and posterior atlantoaxial membrane, likely representing ligamentous injury. Mild/partial tears not excluded. Mild edema/ligamentous injury and possible partial tear along the alar ligament. Small 6 x 6 x 15 mm abnormal signal and thickening along the left posterior longitudinal ligament, which may represent a tear and/or small blood products. There is new moderate to severe anterior wedge compression fracture of the T4 vertebral body, interval progression severe anterior wedge compression fracture of the T5, mild anterior wedge compression fracture of T7 vertebra, new moderate anterior wedge compression fracture of the T10 vertebral body, and minimal anterior wedging of the T12-L1 vertebral body. Operations/Procedures: 1. None Care Plan: C2 fracture: Neurosurgery cons (more content not included)... [facility] 10-22-2023 Note HNO ID: [id number] Author: Eli Maldonado MD Service: Hematology/Oncology Author Type: Physician Type: Progress Notes Filed: 10/22/2023 6:17 AM Note Text: Chart reviewed. Case discussed with GI extensively. For now, holding off on EGD/EUS due to C2 fracture. Possible esophageal thickening and not a mass as review of esophagram was done. At this time, will follow. LLL lung nodules are 6 and 9mm respectively. Would recommend repeat CT in about 3 mo to see if there is growth. She has a high likelihood of malignancy given her pack year smoking hx (since age 13). Will sign off for now. Recommend EGD/EUS after 8 weeks per NSG clearance and CT chest in January 2024. Eli Maldonado MD [facility] 10-21-2023 Note HNO ID: [id number] Author: Samson Luis DO Service: Care Management Author Type: Resident Type: Care Mgt Progress Note Filed: 10/21/2023 3:38 PM Note Text: Physician Certification of Less Than 30 Days Post-Acute Nursing Facility Needed Earliest Possible Discharge Date: 10/21/23 To the best of my knowledge, all information provided about the individual is a true and an accurate reflection of Lilly Watt's needs. I certify that following the inpatient level of care, a post-acute nursing facility stay is required for less than 30 days related to the condition(s) for which the patient was treated during the inpatient level of care: Principal Problem: Fall at home, initial encounter Active Problems: Nicotine use disorder, F17.2 Severe protein-calorie malnutrition (HCC) Closed nondisplaced fracture of second cervical vertebra (HCC) Esophageal mass Closed wedge compression fracture of T4 vertebra (HCC) Hypokalemia Resolved Problems: * No resolved hospital problems. * Physician: Samson Luis DO [facility] 10-21-2023 Note HNO ID: [id number] Author: Latasha Solis RN Service: Care Management Author Type: Registered Nurse Type: Care Mgt Initial Assessment Filed: 10/21/2023 3:33 PM Note Text: CARE MANAGEMENT: ASSESSMENT AND DISCHARGE PLAN SERVICE DATE: October 21, 2023 SERVICE TIME: 10:47 AM PCP: Yoon Rivera MD Primary Contact: Extended Emergency Contact Information Primary Emergency Contact: Colin Cedillo Mobile Relation: Significant other Secondary Emergency Contact: Eddie Pepper Mobile Relation: Sister Admission Status: Inpatient Insurance Provider: [employer] MEDICAID [facility] Discharge Planning requested by: Per Department Practice Potential Transition Plans Snf Facility/Intermediate Care Facility;To Be Determined Advance Directives Current Advance Directive: None Collections Officer Attempted to Assist with AD Completion: Yes Action: Education Provided Current Living Arrangements and Support Lives with: Alone Type of Residence: Support: Family members, Spouse/significant other How do you manage to accomplish the following: Needs Assistance: Ambulation;Bathe/Shower;Dress;Meals/Radha l Prep;Going to the bathroom;Medication Management;Transportation to appointments/community Current Services/Equipment Current Post-Acute Service(s): DME Current DME Type: Cane, Shower seat Discharge Planning Patient Goal(s): General wellness, Less pain [place] of Choice Explained: [place] of Choice Given: Yes Are you interested in bedside delivery of your medications? Yes Discharge Planning Participant(s): Patient Patient/Family Comments: Caregiver Assessment: Caregiver is ready, willing and able to meet the patient's needs as recommended by the inter-professional team: Yes Name of Caregiver: SNF Transport at Discharge: Transportation Arrangements: To Be Determined Needs Prior to Discharge: Needs Prior to Discharge: To Be Determined;Accepting Facility;Precertification;Discharge Transportation Post-Acute Discharge Plan: Patient is a 63 year old female s/p. Oblique displaced C2 fracture extending into L transverse foramen Patient was alert, oriented and on RA. She lives at home alone but her boyfriend lives around the corner and assists her will all ADLs. She walks with a cane and her SO helps her with bathing, grocery shopping, cookings and anything else she needs. [facility] and asked CM to send referral to [facility] since it is near her sisters home. If she does not get accepted there, she asked CM to send referrals to facilities near her home. She will need precert, 7000, dc packet and transport. Patient accepted by [facility]. UPDATE 1532 Precert initiated to [facility]. [facility] and [facility] next to chart. Patient sister was at bedside and agreeable to plan. SIGNATURE: Latasha Solis RN PATIENT NAME: Lilly Watt DATE: October 21, 2023 TIME: 10:47 AM CONTACT #: [id number] [facility] 10-21-2023 Note HNO ID: [id number] Author: Dot Mart APRN.CNP Service: General Surgery Author Type: Nurse Practitioner Type: Progress Notes Filed: 10/21/2023 12:54 PM Note Text: Trauma Surgery Progress Note SERVICE DATE: 10/21/2023 Trauma Service Pager: For questions or concerns Mon-Fri 6a-5p please page [phone]. After 5pm and on Weekends and Holidays, please page [phone] if in ICU or [phone] if on RNF. SUBJECTIVE: NAEON. Patient reports poorly controlled pain to her back and neck. Pain medications adjusted. Tolerating diet. Verbalizes understanding of plan for oncology consult and need for SNF placement on discharge. OBJECTIVE: Vitals: Temp (24hrs), Av.7 ?C (98 ?F), Min:36.2 ?C (97.2 ?F), Max:37.3 ?C (99.1 ?F) BP 113/66 Pulse 82 Temp 36.2 ?C (97.2 ?F) (Temporal) Resp 18 Ht 152.4 cm (5') Wt 42.8 kg (94 lb 5.7 oz) SpO2 92% BMI 18.43 kg/m? O2 Therapy: Room Air IANDO: Date 10/20/23 07 - 10/21/23 0659 10/21/23 0700 - 10/22/23 0659 Shift 7636-1303 1503-0057 0242-7968 24 Hour Total 0976-5884 0415-6592 0160-0781 24 Hour Total INTAKE Shift Total OUTPUT Urine 150 150 Urine Incontinence/Not Saved 1 x 1 x Urine Not Saved. 1 x 2 x 3 x Output ( External Collection Device 10/20/23 1637) 150 150 Shift Total 150 150 Weight (kg) 47.5 42.9 42.8 42.8 42.8 42.8 42.8 42.8 MEDICATIONS: Current Facility-Administered Medications Medication Dose Route Frequency oxyCODONE IR 5-10 mg tab(s) (ROXICODONE) 5-10 mg ORAL q 6 H PRN enoxaparin 40 mg injection (LOVENOX) 40 mg SUBCUTANEOUS q 24 HR NaCl 0.9% iv flush bag 20 mL INTRAVENOUS PRN atorvastatin 40 mg tab(s) (LIPITOR) 40 mg ORAL AT BEDTIME famotidine 40 mg tab(s) (PEPCID) 40 mg ORAL DAILY buPROPion SR 150 mg tab(s) (WELLBUTRIN SR) 150 mg ORAL BID melatonin 9 mg tab(s) 9 mg ORAL AT BEDTIME cyclobenzaprine 10 mg tab(s) (FLEXERIL) 10 mg ORAL AT BEDTIME doxepin 100 mg cap(s) (SINEquan) 100 mg ORAL AT BEDTIME ondansetron 4 mg tab(s) (ZOFRAN) 4 mg ORAL q 6 H PRN Or ondansetron (PF) 4 mg injection (ZOFRAN) 4 mg INTRAVENOUS q 6 H PRN acetaminophen 1,000 mg tab(s) (TYLENOL) 1,000 mg ORAL/FEEDING TUBE q 6 H Labs: Recent Labs 10/21/23 0451 10/20/23 0943 10/19/23 0959 10/19/23 0959 10/19/23 0530 NA 140 142 < > 141 -- K 3.1* 3.6* < > 3.7 -- CHLOR 107* 110* < > 109* -- CO2 25 25 < > 23 -- BUN 13 19 < > 28* -- CREAT 0.62 0.64 < > 0.61 -- GLUC 77 87 < > 95 -- ANION 8* 7* < > 9 -- CA 8.5 8.3* < > 8.4* -- MG -- -- -- 1.9 -- P -- -- -- 2.8 -- ALB -- -- -- -- 3.1* AST -- -- -- -- 13 ALT -- -- -- -- 6* ALKPHOS -- -- -- -- 117 TBILI -- -- -- -- 0.5 WBC 8.06 9.75 < > 14.62* -- HB 11.2* 10.0* < > 11.4* -- HCT 35.9* 31.5* < > 34.8* -- PLT 369 316 < > 353 -- INR -- -- -- -- 0.9 < > = values in this interval not displayed. PHYSICAL EXAM: Genl: Appears age appropriate. No acute distress. Resting comfortably. Head/Face: Normocephalic. Atraumatic. Eyes: EOMI. Sclera not icteric, not injected Neck: C-collar in place. Resp: Lung sounds are clear bilat. No wheezes. No rales. Breathing is non-labored on RA @94%. CVS: RRR as above; 2+ pulses at RA, DP, PT bilat. GI: Abdomen is soft, non-tender, not distended. Bowel sounds normoactive. No peritonitis. MSK: Extremities without clubbing, cyanosis, edema. Normal ROM x 2. Chronic left hand contracture and left foot drop. Skin: Warm and dry. Not jaundiced. Neuro: AANDOx3. Strength and sensation normal. ENGLE. Psych: Normal mood. Normal affect. Appropriate insight into current situation. ASSESSMENT AND PLAN: Assessment Active Hospital Problems Diagnosis Date Noted Fall at home, initial encounter 10/19/2023 Closed nondisplaced fracture of second cervical vertebra (HCC) 10/21/2023 Esophageal mass 10/21/2023 Closed wedge compression fracture of T4 vertebra (HCC) 10/21/2023 Hypokalemia 10/21/2023 Severe protein-calorie malnutrition (HCC) 10/20/2023 Nicotine use disorder, F17.2 05/25/2020 Assessment: 63 year old female s/p GLF on 10/19; transferred from [place] ED. Patient was on ground for 5 hours. Imaging performed: CT HN, CTA HN, CXR, XR T-spine (10/19) @ [place] CT CAPTLspine, MRI CTspine (10/19) XR esophagram (10/21) Traumatic Injuries: Acute nondisplaced fracture through the base of the dens, with minimal edema along the fracture margins Mild edema along the anterior longitudinal ligaments of C1-C4, transverse/cruciform ligaments and tectorial membrane, and posterior atlantoaxial membrane, likely representing ligamentous injury. Mild/partial tears not excluded. Mild edema/ligamentous injury and possible partial tear along the alar ligament. Small 6 x 6 x 15 mm abnormal signal and thickening along the left posterior longitudinal ligament, which may represent a tear and/or small blood products. There is new moderate to severe anterior wedge compression fracture of the T4 vertebral body, interval progression severe ant (more content not included)... [facility] 10-21-2023 Note HNO ID: [id number] Author: Tracy Smith APRN.GROUP RESERVATIONS COORDINATOR Service: Gastroenterology Author Type: Nurse Practitioner Type: Plan of Care Filed: 10/21/2023 1:42 PM Note Text: GI following for esophageal mass. Medical chart reviewed and discussed with GI attending. Speech evaluated patient yesterday noting concern for pharyngeal dysphagia and concern for possible esophageal impairment. Recommending current diet of full liquid, as well as obtaining esophagram. Oncology consult placed yesterday, awaiting input. GI will continue to follow. Further recommendations pending esophagram results and oncology input. GI Attending: Dr. Harris Addendum @ 0458: Results of esophagram noting Mildly dilated upper and mid esophagus with more normal caliber in the distal esophagus. Loss of motility throughout the esophagus. Presumably, mass seen on prior CT scan represented dilated somewhat thick-walled esophagus. On recent MRI of the thoracic spine, the esophagus appeared diffusely thick-walled. Unclear etiology. Endoscopic correlation may be helpful to further evaluate. Discussed further with GI Attending; at this time GI attending uncomfortable attempting EGD/ EUS given patient's cervical fracture. Discussed with primary and oncology. Recommend consider biopsy of noted lung nodule. Recommend consideration of surgically placed PEG tube for nutrition. Per primary, patient will likely be set up with SNF on discharge for outpatient follow up. No inpatient GI interventions recommended at this time. Recommend outpatient EGD/ EUS following C-Collar removal. GI will sign off. [facility] 10-20-2023 Note HNO ID: [id number] Author: Joshua Elizabeth PA-C Service: Neurosurgery Author Type: Physician Supervisor Paper Testing Type: Plan of Care Filed: 10/20/2023 10:06 AM Note Text: Neurosurgery Plan of Care Note: Asked by GI colleagues of if patient could undergo EGD given GI mass on imaging. Discussed with Dr. Graves, would recommend holding off on EGD until NSGY follow up and clearance in 6-8 weeks if not urgent. If absolutely needs to be done sooner, then can proceed as long as it is performed with cervical collar and no hyperextension of the neck. Joshua Elizabeth PA-C Department of Neurosurgery Pager: [phone] October 20, 2023 10:04 AM [facility] 10-20-2023 Note HNO ID: [id number] Author: Ana Allison APRN.CNP Service: Gastroenterology Author Type: Nurse Practitioner Type: Progress Notes Filed: 10/20/2023 10:46 AM Note Text: GI CONSULT PROGRESS NOTE SERVICE DATE: 10/20/2023 SERVICE TIME: 958 CONSULTING SERVICE: Gastroenterology Subjective INTERVAL HPI: GI consulted for esophageal mass on CT imaging in the setting of a fall at home and C2 fracture. She is wearing the C-collar. She is sleeping. MRI completed and reviewed. Neurosurgery following. Current Facility-Administered Medications Medication Dose Route Frequency NaCl 0.9% iv flush bag 20 mL INTRAVENOUS PRN atorvastatin 40 mg tab(s) (LIPITOR) 40 mg ORAL AT BEDTIME famotidine 40 mg tab(s) (PEPCID) 40 mg ORAL DAILY buPROPion SR 150 mg tab(s) (WELLBUTRIN SR) 150 mg ORAL BID melatonin 9 mg tab(s) 9 mg ORAL AT BEDTIME cyclobenzaprine 10 mg tab(s) (FLEXERIL) 10 mg ORAL AT BEDTIME doxepin 100 mg cap(s) (SINEquan) 100 mg ORAL AT BEDTIME ondansetron 4 mg tab(s) (ZOFRAN) 4 mg ORAL q 6 H PRN Or ondansetron (PF) 4 mg injection (ZOFRAN) 4 mg INTRAVENOUS q 6 H PRN lactated ringers iv infusion 75 mL/hr INTRAVENOUS CONTINUOUS oxyCODONE IR 5 mg tab(s) (ROXICODONE) 5 mg ORAL/FEEDING TUBE q 6 H PRN acetaminophen 1,000 mg tab(s) (TYLENOL) 1,000 mg ORAL/FEEDING TUBE q 6 H Objective PHYSICAL EXAM: Physical Exam Performed: Physical Exam Vitals reviewed. Constitutional: General: She is sleeping. She is not in acute distress. Interventions: Cervical collar in place. Comments: Appears older than stated age HENT: Head: Normocephalic and atraumatic. Mouth/Throat: Mouth: Mucous membranes are dry. Eyes: Extraocular Movements: Extraocular movements intact. Conjunctiva/sclera: Conjunctivae normal. Cardiovascular: Rate and Rhythm: Normal rate. Pulmonary: Effort: Pulmonary effort is normal. No respiratory distress. Abdominal: General: Bowel sounds are normal. Palpations: Abdomen is soft. Skin: General: Skin is warm and dry. BP 105/70 Pulse 84 Temp (Src) 98.2 (Oral) Resp 19 SpO2 95% O2 Therapy: Nasal Cannula, Liters: 2 DATA: Diagnostic tests reviewed for today's visit: Most recent labs and imaging results. WBC (k/uL) Date Value 10/20/2023 9.75 RBC (m/uL) Date Value 10/20/2023 3.54 (L) Hemoglobin (g/dL) Date Value 10/20/2023 10.0 (L) Hematocrit (%) Date Value 10/20/2023 31.5 (L) MCV (fL) Date Value 10/20/2023 89.0 MCH (pg) Date Value 10/20/2023 28.2 MCHC (g/dL) Date Value 10/20/2023 31.7 RDW-CV (%) Date Value 10/20/2023 16.6 (H) Platelet Count (k/uL) Date Value 10/20/2023 316 MPV (fL) Date Value 10/20/2023 9.6 Glucose (mg/dL) Date Value 10/19/2023 95 BUN (mg/dL) Date Value 10/19/2023 28 (H) Creatinine (mg/dL) Date Value 10/19/2023 0.61 Sodium (mmol/L) Date Value 10/19/2023 141 Potassium (mmol/L) Date Value 10/19/2023 3.7 Chloride (mmol/L) Date Value 10/19/2023 109 (H) CO2 (mmol/L) Date Value 10/19/2023 23 Protein, Total (g/dL) Date Value 10/19/2023 6.1 (L) Albumin (g/dL) Date Value 10/19/2023 3.1 (L) Calcium, Total (mg/dL) Date Value 10/19/2023 8.4 (L) Alkaline Phosphatase (U/L) Date Value 10/19/2023 117 Bilirubin, Total (mg/dL) Date Value 10/19/2023 0.5 AST (U/L) Date Value 10/19/2023 13 ALT (U/L) Date Value 10/19/2023 6 (L) Triglyceride (mg/dL) Date Value 07/07/2015 139 MRI cervical and thoracic spine without IV contrast 10/19/23 CERVICAL: Counting reference: Craniocervical junction. Anatomic Variants: None. Localizer images: No significant findings. Alignment: There is mild grade 1 anterolisthesis of C3 on C4 and C4 on C5 as well as C5 on C6 and C6 on C7. Craniocervical junction: Craniocervical junction is otherwise normal. Cord: The cervical spinal cord is within normal limits of signal intensity and morphology. Bone marrow signal/fracture: There is acute nondisplaced fracture through the base of the dens, with minimal edema along the fracture margins, as seen on the prior CT of 10/19/2023. There is mild edema along the anterior longitudinal ligaments C1-C4, mild edema and possible partial tear along the alar ligament (series 9, image 6) and mild edema along the transverse/cruciform ligaments and tectorial membrane. There is edema along the posterior atlantoaxial membrane. There is edema along the interspinous ligaments of C2-C4. There is a small 6 x 6 x 15 mm T2 hypointense and T1 hyperintense thickening along the left posterior longitudinal ligament (series 9, image 11) (series 4, image 11), which may represent a tear and/or small blood products. No evidence of pathologic marrow infiltration. Cervical soft tissues: The paraspinal soft tissues are within normal limits. C2-C3: Canal and foramina are patent. C3-C4: Canal and foramina are patent. C4-C5: Canal and foramina are patent. C5-C6: Canal and foramina (more content not included)... [facility] 10-20-2023 Note HNO ID: [id number] Author: Komal Andino MD Service: General Surgery Author Type: Physician Type: Progress Notes Filed: 10/21/2023 6:23 PM Note Text: Trauma Surgery Progress Note SERVICE DATE: 10/20/2023 Trauma Service Pager: For questions or concerns Mon-Fri 6a-5p please page [phone]. After 5pm and on Weekends and Holidays, please page [phone] if in ICU or [phone] if on RNF. SUBJECTIVE: Patient seen this morning on rounds. Patient given diet this AM despite being NPO. Patient and nurse instructed she needs to be NPO for possible procedure. Both verbalized understanding. OBJECTIVE: Vitals: No data recorded. BP 96/63 Pulse 81 Temp 36.8 ?C (98.2 ?F) (Oral) Resp (!) 25 SpO2 (!) 93% O2 Therapy: Nasal Cannula IANDO: MEDICATIONS: Current Facility-Administered Medications Medication Dose Route Frequency NaCl 0.9% iv flush bag 20 mL INTRAVENOUS PRN atorvastatin 40 mg tab(s) (LIPITOR) 40 mg ORAL AT BEDTIME famotidine 40 mg tab(s) (PEPCID) 40 mg ORAL DAILY buPROPion SR 150 mg tab(s) (WELLBUTRIN SR) 150 mg ORAL BID melatonin 9 mg tab(s) 9 mg ORAL AT BEDTIME cyclobenzaprine 10 mg tab(s) (FLEXERIL) 10 mg ORAL AT BEDTIME doxepin 100 mg cap(s) (SINEquan) 100 mg ORAL AT BEDTIME ondansetron 4 mg tab(s) (ZOFRAN) 4 mg ORAL q 6 H PRN Or ondansetron (PF) 4 mg injection (ZOFRAN) 4 mg INTRAVENOUS q 6 H PRN lactated ringers iv infusion 75 mL/hr INTRAVENOUS CONTINUOUS oxyCODONE IR 5 mg tab(s) (ROXICODONE) 5 mg ORAL/FEEDING TUBE q 6 H PRN acetaminophen 1,000 mg tab(s) (TYLENOL) 1,000 mg ORAL/FEEDING TUBE q 6 H Labs: Recent Labs 10/19/23 0959 10/19/23 0530 NA 141 -- K 3.7 -- CHLOR 109* -- CO2 23 -- BUN 28* -- CREAT 0.61 -- GLUC 95 -- ANION 9 -- CA 8.4* -- MG 1.9 -- P 2.8 -- ALB -- 3.1* AST -- 13 ALT -- 6* ALKPHOS -- 117 TBILI -- 0.5 WBC 14.62* -- HB 11.4* -- HCT 34.8* -- PLT 353 -- INR -- 0.9 PHYSICAL EXAM: GENERAL: No distress, Alert NEURO: AANDOx3, repetitive speech, L sided paresis w/ hand contracture HEENT: normocephalic, atraumatic, c collar in place LUNGS: Unlabored breathing CARDIAC: extremities warm and well perfused ABDOMEN: Soft, non-tender, non-distended SKIN: Skin color, texture, turgor normal, No rashes or lesions ASSESSMENT AND PLAN: Assessment Active Hospital Problems Diagnosis Date Noted Fall at home, initial encounter 10/19/2023 Assessment: 63 year old female pmh COPD, GERD, hypercholesterolemia, hld, tobacco use, hx cerebral a occlusion w infarct (with residual L side weakness), hypothyroidism, ankle sx presents after GLF on 10/19 Imaging performed: CT HNCAP TL CTA HN Traumatic Injuries: Oblique displaced C2 fracture extending into L transverse foramen Operations/Procedures: 1. NA Care Plan: C2 fracture T4,T5,T10 compression fx Minimal anterior wedging ot T12-L1 Spine consulted MRI obtained - awaiting further spine recs Will hold dvt ppx Large esophageal lesion noted GI consulted Cont pepcid Speech consulted Will consider EGD pending MRI and neurosurgery Current diet order: DIET NPO Pain regimen: omar tylenol, prn oxy Bowel regimen: NA Labs: Daily CBC, BMP PPX: DVT: Holding Ulcer: home pepcid Vit D level if > 65 yo: NA Consulted Services: Trauma, Neurosurgery, GI Dispo Planning: PT/OT recs TBD. Case management following. Incidentals: Ectasia of proximal L ICA 8 mm Follow Up Needs: TBD Pending discussion with attending physician, Dr. Andino SIGNATURE: Tsering Gonsalez DO PATIENT NAME: Lilly Watt DATE: 10/20/2023 TIME: 7:55 AM Pager: see below Trauma Service Pager: For questions or concerns Mon-Fri 6a-5p please page [phone]. After 5pm and on Weekends and Holidays, please page [phone] if in ICU or [phone] if on RNF. Attending Note I personally saw and examined the patient. I reviewed the resident's note. I agree with the resident's assessment and plan unless otherwise noted. As above C-collar ST GI to evaluate esophageal mass Placement Signature: Komal Andino MD Date: 10/21/2023 Time: 6:22 PM [facility] Summary Purpose Family History No Family History Records FoundNo Family History Records FoundNo Family History Records Found Advance Directives No Advanced Directives Records FoundNo Advanced Directives Records FoundNo Advanced Directives Records Found Additional Source Comments INFORMATION SOURCE (unrecogn ized section and content) DATE CREATED AUTHOR AUTHOR'S ORGANIZ ATION 10/23/2023 [facility] DATE CREATED AUTHOR AUTHOR'S ORGANIZ ATION 11/10/2023 [facility] FOR RECORDS PERTAINING TO PATIENTS WHO ARE OR HAVE BEEN ENROLLED IN A CHEMICAL DEPENDENCY/SUBSTANCEABUSE PROGRAM, SOME INFORMATION MAY BE OMITTED. This clinical summary was aggregated from multiple sources. Caution should be exercised in using it in the provision of clinical care. This summary normalizes information from multiple sources, and as a consequence, information in this document may materially change the coding, format and clinical context of patient data. In addition, data may be omitted in some cases. CLINICAL DECISIONS SHOULD BE BASED ON THE PRIMARY CLINICAL RECORDS. [employer] provides no warranty or guarantee of the accuracy or completeness of information in this document.
--- NOTE | 2023-11-10 22:19 | HP.PCM.HOS_ITS ---
[facility] - General General Date of Admission: 11/10/23 Date of Service: 11/10/23 Chief Complaint: Aspiration and SOB. [facility] Narrative ALISTAIR MUELLER, is a 63 F with a past medical history of hypothyroidism, history of alcohol abuse, history of tobacco abuse; with subsequent COPD, polycythemia vera, history of CVA; with residual left hemiplegia and stuttering speech, history of malnutrition; status post PEG tube placement (09/2023), GERD; with history of peptic ulcer disease, depression with anxiety, osteoarthritis, osteoporosis and recently diagnosed C2 dens fracture who presents recently evaluated at [facility] when she was found to have a suspected tumor in her right lung with a biopsy unable to be done because of the increased risk of anesthesia associated with possible paralysis due to intubation so she was sent back to her ECF on 3 L nasal cannula. Then last night she was attempting to eat chili when she found she was unable to swallow it she tried to clear her airway unsuccessfully with a witnessed aspiration event causing her breathing to become worse. Then she had a similar episode earlier on 11/10/2023 where she ate some food and began gagging on it with nursing staff attempting to deep suction and increasing her supplemental oxygen but eventually she required transfer to the hospital for further evaluation and treatment. She also admits to a headache which has been severe since she received her injury. She denies any falls since then and she also denies fevers, chills, diarrhea or constipation but she does admit to frequent cough without sputum production. The ER physician spoke with the family at the bedside about this patient's precarious medical condition as she is a poor candidate for any procedure due to her neck fracture and chronically poor health with multiple active comorbidities; including suspected malignancy in her right lung. Therefore, she was diagnosed with acute aspiration pneumonia likely due to dysphagia from recent C2 dens fracture with leukocytosis of 18.2 present on admission and acute hypoxic respiratory failure requiring BiPAP and they have now signed DNR CC comfort measures only paperwork with the goal for patient to be evaluated by hospice in the a.m. for end-of-life care to the hospitalist service was consulted to facilitate this process. She was then admitted to the general medical floor for ongoing care for stay that is expected to be greater than 48 hours. [facility] Medical History Alcohol use Ambulates with cane Anemia Anxiety and depression Arthritis Asthma COPD (chronic obstructive pulmonary disease) Difficulty swallowing Easy bruising Emphysema lung Encounter for screening for malignant neoplasm of lung in current smoker with 30 pack year history or greater Esophageal thickening Excessive bleeding Gammopathy GERD (gastroesophageal reflux disease) History of echocardiogram History of peptic ulcer Hyperlipidemia Hypotension Hypothyroidism Iron deficiency anemia due to chronic blood loss Left hemiplegia Nicotine abuse Osteoporosis Polycythemia vera Post-menopausal Shortness of breath on exertion Thrombocytosis Tobacco use disorder, continuous Wears dentures Home Medications atorvastatin 40 mg tablet 40 mg PO DAILY cholesterol 12/26/18 [History Last Taken 10/04/22] doxepin 100 mg capsule 100 mg PO QHS depression 12/10/19 [History Last Taken 10/04/22] bupropion HCl (smoking deter) 150 mg tablet,12 hr sustained-release(smoking deterrent) 150 mg PO BID depression 05/20/20 [History Last Taken 10/05/22] ergocalciferol (vitamin D2) 1,250 mcg (50,000 unit) capsule 50,000 units PO QMONTH supplement 05/20/20 [History Last Taken 09/28/22] acetaminophen 500 mg tablet 2 tab PO Q8H PRN Pain 10/05/22 [History Last Taken 09/23/22] melatonin 5 mg tablet 10 mg PO QHS INSOMNIA 10/05/22 [History Last Taken 10/04/22] albuterol sulfate 2.5 mg/0.5 mL solution for nebulization 2.5 mg inhalation Q4H PRN shortness of breath or wheezing 11/10/23 [History Last Taken Unknown] aspirin 81 mg capsule 81 mg PO DAILY blood thinner 11/10/23 [History Last Taken Unknown] cyclobenzaprine 10 mg tablet 10 mg PO QHS muscle relaxer 11/10/23 [History Last Taken Unknown] famotidine 40 mg tablet (Pepcid) 40 mg PO DAILY gerd 11/10/23 [History Last Taken Unknown] hydroxyzine HCl 25 mg tablet 25 mg PO Q8H PRN anxiety 11/10/23 [History Last Taken Unknown] oxycodone 5 mg tablet 5 mg PO Q6H PRN pain 11/10/23 [History Last Taken Unknown] paroxetine HCl 20 mg tablet 20 mg PO QHS depression 11/10/23 [History Last Taken Unknown] Allergy/AdvReac Type Severity Reaction Status Date / Time No Known Allergies Allergy Verified 01/21/23 07:18 Family History Mother Diabetes Cancer Surgical History History of esophagogastroduodenoscopy (EGD) History of right knee surgery right ankle surgery Social History household members: none housing: residential Smoking Status: Current every day smoker tobacco type: cigarettes alcohol intake: never substance use type: former substance user and marijuana ROS ROS Narrative Review of systems: Constitutional: Patient denies fevers or chills. Eyes: Patient denies blurry vision or discharge from eyes. ENT: Patient denies ear pain, runny nose or sore throat. Cardiovascular: Patient denies chest pain, palpitations or chest pressure. Respiratory: Patient admits to shortness of breath and cough but denies sputum production. Gastrointestinal: Patient admits to nausea but denies abdominal pain, constipation, diarrhea or vomiting. Genitourinary: Patient denies dysuria, hematuria or urinary frequency. Musculoskeletal: Patient denies arthralgias or myalgias. Integumentary: Patient denies abscess or rash. Neurologic: Patient admits to headache but denies paresthesias. Her chronic left hemiparesis and stuttering speech is unchanged from previous. Psychiatric: Patient denies uncontrolled depression or anxiety. Endocrine: Patient denies polyuria, polydipsia or polyphagia. 14 point review of systems otherwise negative except for positives noted above in HPI. Vital Signs Vital Signs Vital Signs: 11/10/23 19:35 11/10/23 19:39 11/10/23 19:42 Temperature 97 F L 97 F L Temperature Source Temporal Temporal Pulse Rate 113 H 111 H Respiratory Rate 36 H 18 Respiratory Effort Short of Breath Labored Blood Pressure 125/78 H 118/77 Blood Pressure Mean 93 90 Pulse Ox 90 90 Oxygen Delivery Method Non-Rebreather Non-Rebreather Non-Rebreather Oxygen Flow Rate (L/min) 15 15 15 Fraction of Inspired Oxygen (FIO2) 11/10/23 20:35 11/10/23 21:15 Temperature Temperature Source Pulse Rate 117 H Respiratory Rate 26 H Respiratory Effort Blood Pressure Blood Pressure Mean Pulse Ox 91 Oxygen Delivery Method Oxygen Flow Rate (L/min) Fraction of Inspired Oxygen (FIO2) 80 65 Weight Weight: 88 lb 6.486 oz Body Mass Index (BMI) 17.2 Physical Exam Const alert and oriented x3 Constitutional Narrative: Patient appears chronically ill and is struggling to breathe in spite of BiPAP. General Appearance: cooperative HEENT normocephalic, head/scalp atraumatic, hearing grossly normal bilaterally and moist oral mucous membranes Eyes PERRL and EOMs intact bilaterally Neck no lymphadenopathy and supple Resp Resp Narrative: Decreased breath sounds throughout with increased respiratory effort and scattered rhonchi. Cardio regular rate and regular rhythm GI normal to inspection, nondistended, normoactive bowel sounds, soft to palpation, non-tender and non-distended Extremity normal to inspection and full ROM Neuro oriented x3, CN's II-XII intact bilaterally and moves all extremities Sensorium / Orientation: awake, alert, oriented to person and oriented to place Speech: speech normal Motor Exam: strength 5/5 throughout Psych affect normal Results Medical Records Data Attestation: I reviewed the patient's medical records Lab / Micro Data Attestation: I reviewed the patient's lab results. 11/10/23 21:08 11/10/23 21:08 Labs: Laboratory Results - last 24 hr 11/10/23 21:08: WBC 18.3 H, RBC 4.27, Hgb 11.5 L, Hct 37.9, MCV 88.8, MCH 26.9 L , MCHC 30.3 L, RDW Std Deviation 55.4 H, RDW Coeff of Jeanine 17.2 H, Plt Count 739 H, MPV 8.8, Immature Gran % (Auto) 0.400, Neut % (Auto) 82.0 H, Lymph % (Auto) 9.2 L, Winkler % (Auto) 6.9, Eos % (Auto) 0.8, Baso % (Auto) 0.7, Absolute Neuts (auto) 15.0 H, Absolute Lymphs (auto) 1.69, Nucleated RBC % 0, Sodium 141, Potassium 3.6, Chloride 108 H, Carbon Dioxide 29.0, Anion Gap 4 L, BUN 14, Creatinine 0.73, Estim Creat Clear Calc 50.58, Est GFR (MDRD) Af Amer 103, Est GFR (MDRD) Non-Af 85, BUN/Creatinine Ratio 19.1, Glucose 126 H, Calcium 9.7, Total Bilirubin 0.30, AST 9 L, ALT 11 L, Alkaline Phosphatase 142 H, Troponin I High Sens 9, Total Protein 7.7, Albumin 2.9 L, Globulin 4.8 H, Albumin/Globulin Ratio 0.6 L Micro: Microbiology 11/10/23 20:52 Mucosa - Nose SARS-CoV-2, Influenza & RSV (PCR) - Final ABG Data ABG results: ABG 11/10/23 20:55 Specimen Type DANIEL Sample Site Not entered O2 % 80.0 VBG pH 7.50 H VBG pO2 104 H VBG HCO3 24 VBG Total CO2 25 VBG O2 Sat (Calc) 99 H VBG Base Excess 1 POC Mix VBG pCO2 Pt Tmp 31.3 L O2 Delivery Device BiPAP Clinical Comments 14. 6. 80% Imagaing Radiology Impression Chest X-Ray 11/10/23 20:30 IMPRESSION: Emphysema without pneumonia or atelectasis. Electronically Signed: Yayo Bingham MD at 20:41 EST , Assessment & Plan Assessment/Plan (1) Aspiration pneumonia: QUALIFIERS: Aspiration pneumonia type: unspecified Laterality: unspecified laterality Lung location: unspecified part of lung Qualified Code(s): J69.0 - Pneumonitis due to inhalation of food and vomit (2) Acute hypoxic respiratory failure: (3) Closed C2 fracture: QUALIFIERS: Encounter type: initial encounter Fracture morphology: type II dens Fracture alignment: nondisplaced Qualified Code(s): S12.112A - Nondisplaced Type II dens fracture, initial encounter for closed fracture (4) End of life care: PLAN: Plan 1. Aspiration pneumonia complicated by clinical evidence of acute hypoxic respiratory failure requiring BiPAP with the patient's family opting for pall iative care with DNR CC CODE STATUS - Admit to general medical floor under palliative care. Continue IV antibiotics begun in the ER and await culture and sensitivity data. Give Toradol IV as needed for mild to moderate level 1-5 out of 10 pain or fever. Give morphine IV as needed for severe level 6-10 out of 10 pain. Give atropine as needed for excessive secretions. Finally, we will consult the palliative care service to see this patient on rounds in the a.m. for end-of-life care with help appreciated in advance. 2. Recently diagnosed C2 dens fracture who presents recently evaluated at [facility] when she was found to have a suspected tumor in her right lung with a biopsy unable to be done because of the increased risk of anesthesia associated with possible paralysis due to intubation complicating #1 - Noted. 3. History of tobacco abuse; with subsequent COPD that is now acutely exacerbated compounding #1 & #2 - Give IV Solu-Medrol plus scheduled and as needed nebulizers. Nicotine patch will be offered to control cravings. 4. History of CVA; with residual left hemiplegia and stuttering speech - Stable. 5. Hypothyroidism - Continue Synthroid if patient is able to tolerate oral intake. 6. History of alcohol abuse previously - Noted. 7. History of polycythemia vera - Stable. 8. History of malnutrition; status post PEG tube placement (09/2023) - Noted. 9. GERD; with history of peptic ulcer disease - Stable. 10. Depression with anxiety - Give IV Ativan as needed for breakthrough symptoms. 11. Osteoarthritis - Stable. 12. Osteoporosis - Stable. 13. DVT prophylaxis - Lovenox 40 mg subcu daily. Total time: Approximately 55 minutes. Charges/Coding Visit Charges Inpatient E&M: 40051 Init Hosp L2
[2023-11-10] MEDS: Morphine 4 MG/ML Syringe IV (22:28)
--- NOTE | 2023-11-10 22:38 | ED.RN ---
x1 morphine given. repositioned for comfort. refusing bipap, non rebreather 15L, suction provided tolerated well. sister at bedside with patient.
--- OUTSIDE RECORDS SUMMARY | 2023-11-10 23:05 | XMS RPT_ITS | CCD ---
Author Name Unknown Address [address] [place] [id number] Organization [facility] Care Team Providers Care Sleeping Room Cleaner Name Role Phone KOMAL ANDINO Attending Unavailabl [...] cervical vertebra, unspecified fracture morphology, initial encounter ([facility])] Onset: 10-23-2023 Episodic Results Test Name Value Interpretation Reference Range Facil ity Encounters Encounter Date Encounter Type Care Provider Facility Start: 10-19-2023 End: 10-23-2023 Evaluation and management of inpatient KOMAL ANDINO Facility:[facility] Procedures Date Procedure Procedure Detail Performing Clinician Start: 10-19-2023 Antibody screen KOMAL Trammell [facility] Payers Date Payer Category Payer Medicaid [id number] Clinical Notes 10-20-2023 to 10-23-2023 Note Date & Type Note Facility 10-23-2023 Note HNO ID: [id number] Author: Marley Sigala RN Service: Nursing Author Type: Registered Nurse Type: Nursing Progress Note Filed: 10/23/2023 2:07 PM Note Text: Report called and given to [facility] Transport scheduled for 430PM. [facility] 10-23-2023 Note HNO ID: [id number] Author: Jd Beaver PA-C Service: General Surgery Author Type: Physician Amortization Schedule Clerk Type: Progress Notes Filed: 10/23/2023 7:58 AM Note Text: Trauma Surgery Progress Note SERVICE DATE: 10/23/2023 Trauma Service Pager: For questions or concerns Mon-Fri 6a-5p please page [phone]. After 5pm and on Weekends and Holidays, please page [phone] if in ICU or [phone] if on RNF. SUBJECTIVE: NAEON. Patient was [...] 0659 10/23/23 07 - 10/24/23 0659 Shift 8560-9868 1027-1134 9357-5918 24 Hour Total 6697-8232 9660-5202 9734-8920 24 Hour Total INTAKE PO 250 250 [...] female s/p GLF on 10/19; transferred from [place] ED. Patient was on ground for 5 hours. Imaging performed: CT HN, CTA HN, CXR, XR T-spine (10/19) @ [place] CT CAPTLspine, MRI CTspine (10/19) XR esophagram [...] at all t (more content not included)... [facility] 10-22-2023 Note HNO ID: [id number] Author: Jd Beaver PA-C Service: General Surgery Author Type: Physician Amortization Schedule Clerk Type: Progress Notes Filed: 10/22/2023 11:02 AM Note Text: Trauma Surgery Progress Note SERVICE DATE: 10/22/2023 Trauma Service Pager: For questions or concerns Mon-Fri 6a-5p please page [phone]. After 5pm and on Weekends and Holidays, please page [phone] if in ICU or [phone] if on RNF. SUBJECTIVE: Patient denied any [...] - 10/22/2365810/22/23 07 - 10/23/23 0659 Shift 1174-8148 2996-8116 4218-1933 24 Hour Total 0943-7277 4440-9343 7239-4112 24 Hour Total INTAKE PO 120 120 [...] female s/p GLF on 10/19; transferred from [place] ED. Patient was on ground for 5 hours. Imaging performed: CT HN, CTA HN, CXR, XR T-spine (10/19) @ [place] CT CAPTLspine, MRI CTspine (10/19) XR esophagram [...] fracture: Neurosurgery cons (more content not included)... [facility] 10-22-2023 Note HNO ID: [id number] Author: Eli Maldonado MD Service: Hematology/Oncology Author [...] chest in January 2024. Eli Maldonado MD [facility] 10-21-2023 Note HNO ID: [id number] Author: Samson Luis DO Service: Care Management [...] hospital problems. * Physician: Samson Luis DO [facility] 10-21-2023 Note HNO ID: [id number] Author: Latasha Solis RN Service: Care Management [...] Admission Status: Inpatient Insurance Provider: [employer] MEDICAID [facility] Discharge Planning requested by: Per Department Practice Potential Transition Plans Long-Term Facility/Intermediate Care Facility;To Be Determined Advance Directives Current Advance Directive: None Attraction Worker Attempted to Assist with AD Completion: Yes [...] Planning Patient Goal(s): General wellness, Less pain [place] of Choice Explained: [place] of [place] Given: Yes Are you interested [...] [place] and asked CM to send referral to [facility] [place] since it is near her sisters home. If she does not get accepted there, she asked CM to send referrals to facilities near her home. She will need precert, 7000, dc packet and transport. Patient accepted by [facility] [place]. UPDATE 1532 Precert initiated to [facility] [place] [facility]. [address] [facility] and dc packet next to chart. Patient sister was at bedside and agreeable to plan. SIGNATURE: Latasha Solis RN PATIENT NAME: Lilly Watt DATE: October 21, 2023 TIME: 10:47 AM CONTACT #: [id number] [facility] 10-21-2023 Note HNO ID: [id number] Author: Dot Mart APRN.CNP Service: General Surgery Author Type: Nurse Practitioner Type: Progress Notes Filed: 10/21/2023 12:54 PM Note Text: Trauma Surgery Progress Note SERVICE DATE: 10/21/2023 Trauma Service Pager: For questions or concerns Mon-Fri 6a-5p please page [phone]. After 5pm and on Weekends and Holidays, please page [phone] if in ICU or [phone] if on RNF. SUBJECTIVE: NAEON. Patient reports [...] 0659 10/21/23 0700 - 10/22/23 0659 Shift 5816-6189 1500-9128 6973-7833 24 Hour Total 7395-6504 9144-9812 9610-6552 24 Hour Total INTAKE Shift Total OUTPUT [...] female s/p GLF on 10/19; transferred from [place] ED. Patient was on ground for 5 hours. Imaging performed: CT HN, CTA HN, CXR, XR T-spine (10/19) @ [place] CT CAPTLspine, MRI CTspine (10/19) XR esophagram [...] progression severe ant (more content not included)... [facility] 10-21-2023 Note HNO ID: [id number] Author: Tracy Smith APRN.SQL PROGRAMMER ANALYST Service: Gastroenterology Author Type: Nurse Practitioner Type: [...] input. GI Attending: Dr. Harris Addendum @ 0171: Results of esophagram noting Mildly dilated upper [...] following C-Collar removal. GI will sign off. [facility] 10-20-2023 Note HNO ID: [id number] Author: Joshua Elizabeth PA-C Service: Neurosurgery Author Type: Physician Amortization Schedule Clerk Type: Plan of Care Filed: 10/20/2023 10:06 [...] Joshua Elizabeth PA-C Department of Neurosurgery Pager: [phone] October 20, 2023 10:04 AM [facility] 10-20-2023 Note HNO ID: [id number] Author: Ana Allison APRN.CNP Service: Gastroenterology Author [...] Canal and foramina (more content not included)... [facility] 10-20-2023 Note HNO ID: [id number] Author: Komal Andino MD Service: General Surgery Author Type: Physician Type: Progress Notes Filed: 10/21/2023 6:23 PM Note Text: Trauma Surgery Progress Note SERVICE DATE: 10/20/2023 Trauma Service Pager: For questions or concerns Mon-Fri 6a-5p please page [phone]. After 5pm and on Weekends and Holidays, please page [phone] if in ICU or [phone] if on RNF. SUBJECTIVE: Patient seen this [...] questions or concerns Mon-Fri 6a-5p please page [phone]. After 5pm and on Weekends and Holidays, please page [phone] if in ICU or [phone] if on RNF. Attending Note I personally saw and examined the patient. I reviewed the resident's note. I agree with the resident's assessment and plan unless otherwise noted. As above C-collar ST GI to evaluate esophageal mass Placement Signature: Komal Andino MD Date: 10/21/2023 Time: 6:22 PM [facility] Summary Purpose Family History No Family History Records FoundNo Family History Records FoundNo Family History Records Found Advance Directives No Advanced Directives Records FoundNo Advanced Directives Records FoundNo Advanced Directives Records Found Additional Source Comments INFORMATION SOURCE (unrecogn ized section and content) DATE CREATED AUTHOR AUTHOR'S ORGANIZ ATION 10/23/2023 [facility] DATE CREATED AUTHOR AUTHOR'S ORGANIZ ATION 11/10/2023 [facility] FOR RECORDS PERTAINING TO PATIENTS WHO ARE [...] BE BASED ON THE PRIMARY CLINICAL RECORDS. [employer] provides no warranty or guarantee of the accuracy or completeness of information in this document.
--- OUTSIDE RECORDS SUMMARY | 2023-11-10 23:09 | XMS RPT_ITS | CCD ---
Author Name Unknown Address [address] [place] [id number] Organization [facility] Care Team Providers Care Student Accounts Coordinator Name Role Phone KOMAL ANDINO Attending Unavailabl [...] cervical vertebra, unspecified fracture morphology, initial encounter ([facility])] Onset: 10-23-2023 Episodic Results Test Name Value Interpretation Reference Range Facil ity Encounters Encounter Date Encounter Type Care Provider Facility Start: 10-19-2023 End: 10-23-2023 Evaluation and management of inpatient KOMAL ANDINO Facility:[facility] Procedures Date Procedure Procedure Detail Performing Clinician Start: 10-19-2023 Antibody screen KOMAL Trammell [facility] Payers Date Payer Category Payer Medicaid [id number] Clinical Notes 10-20-2023 to 10-23-2023 Note Date & Type Note Facility 10-23-2023 Note HNO ID: [id number] Author: Marley Sigala RN Service: Nursing Author Type: Registered Nurse Type: Nursing Progress Note Filed: 10/23/2023 2:07 PM Note Text: Report called and given to [facility] Transport scheduled for 430PM. [facility] 10-23-2023 Note HNO ID: [id number] Author: Jd Beaver PA-C Service: General Surgery Author Type: Physician Area Counselor Type: Progress Notes Filed: 10/23/2023 7:58 AM Note Text: Trauma Surgery Progress Note SERVICE DATE: 10/23/2023 Trauma Service Pager: For questions or concerns Mon-Fri 6a-5p please page [phone]. After 5pm and on Weekends and Holidays, please page [phone] if in ICU or [phone] if on RNF. SUBJECTIVE: NAEON. Patient was [...] 0659 10/23/23 07 - 10/24/23 0659 Shift [phone] 2852-0186 24 Hour Total 6847-8765 7622-6047 7206-3432 24 Hour Total INTAKE PO 250 250 [...] female s/p GLF on 10/19; transferred from [facility] ED. Patient was on ground for 5 hours. Imaging performed: CT HN, CTA HN, CXR, XR T-spine (10/19) @ [facility] CT CAPTLspine, MRI CTspine (10/19) XR esophagram [...] at all t (more content not included)... [facility] 10-22-2023 Note HNO ID: [id number] Author: Jd Beaver PA-C Service: General Surgery Author Type: Physician Area Counselor Type: Progress Notes Filed: 10/22/2023 11:02 AM Note Text: Trauma Surgery Progress Note SERVICE DATE: 10/22/2023 Trauma Service Pager: For questions or concerns Mon-Fri 6a-5p please page [phone]. After 5pm and on Weekends and Holidays, please page [phone] if in ICU or [phone] if on RNF. SUBJECTIVE: Patient denied any [...] - 10/22/2365810/22/23 07 - 10/23/23 0659 Shift 8719-7550 2210-0397 5961-2315 24 Hour Total 8664-7384 4420-0751 7122-4178 24 Hour Total INTAKE PO 120 120 [...] female s/p GLF on 10/19; transferred from [facility] ED. Patient was on ground for 5 hours. Imaging performed: CT HN, CTA HN, CXR, XR T-spine (10/19) @ [facility] CT CAPTLspine, MRI CTspine (10/19) XR esophagram [...] fracture: Neurosurgery cons (more content not included)... [facility] 10-22-2023 Note HNO ID: [id number] Author: Eli Maldonado MD Service: Hematology/Oncology Author [...] chest in January 2024. Eli Maldonado MD [facility] 10-21-2023 Note HNO ID: [id number] Author: Samson Luis DO Service: Care Management [...] hospital problems. * Physician: Samson Luis DO [facility] 10-21-2023 Note HNO ID: [id number] Author: Latasha Solis RN Service: Care Management [...] Admission Status: Inpatient Insurance Provider: [employer] MEDICAID [facility] Discharge Planning requested by: Per Department Practice Potential Transition Plans Senior Living Facility/Intermediate Care Facility;To Be Determined Advance Directives Current Advance Directive: None Caddie Supervisor Attempted to Assist with AD Completion: Yes [...] Planning Patient Goal(s): General wellness, Less pain [place] of Choice Explained: [place] of [place] Given: Yes Are you interested [...] [place] SN[place] and asked CM to send referral to [facility] [place] since it is near her sisters home. If she does not get accepted there, she asked CM to send referrals to facilities near her home. She will need precert, 7000, dc packet and transport. Patient accepted by [facility]. UPDATE 1532 Precert initiated to [facility]. [facility] and dc packet next to chart. Patient sister was at bedside and agreeable to plan. SIGNATURE: Latasha Solis RN PATIENT NAME: Lilly Watt DATE: October 21, 2023 TIME: 10:47 AM CONTACT #: [id number] [facility] 10-21-2023 Note HNO ID: [id number] Author: Dot Mart APRN.CNP Service: General Surgery Author Type: Nurse Practitioner Type: Progress Notes Filed: 10/21/2023 12:54 PM Note Text: Trauma Surgery Progress Note SERVICE DATE: 10/21/2023 Trauma Service Pager: For questions or concerns Mon-Fri 6a-5p please page [phone]. After 5pm and on Weekends and Holidays, please page [phone] if in ICU or [phone] if on RNF. SUBJECTIVE: NAEON. Patient reports [...] 0659 10/21/23 0700 - 10/22/23 0659 Shift 6463-0910 2139-0113 3112-9762 24 Hour Total 5066-4741 1068-7056 2004-0356 24 Hour Total INTAKE Shift Total OUTPUT [...] female s/p GLF on 10/19; transferred from [facility] ED. Patient was on ground for 5 hours. Imaging performed: CT HN, CTA HN, CXR, XR T-spine (10/19) @ [facility] CT CAPTLspine, MRI CTspine (10/19) XR esophagram [...] progression severe ant (more content not included)... [facility] 10-21-2023 Note HNO ID: [id number] Author: Tracy Smith APRN.CARBON LAMP CLEANER Service: Gastroenterology Author Type: Nurse Practitioner Type: [...] input. GI Attending: Dr. Harris Addendum @ 2081: Results of esophagram noting Mildly dilated upper [...] following C-Collar removal. GI will sign off. [facility] 10-20-2023 Note HNO ID: [id number] Author: Joshua Elizabeth PA-C Service: Neurosurgery Author Type: Physician Area Counselor Type: Plan of Care Filed: 10/20/2023 10:06 [...] Joshua Elizabeth PA-C Department of Neurosurgery Pager: [phone] October 20, 2023 10:04 AM [facility] 10-20-2023 Note HNO ID: [id number] Author: Ana Allison APRN.CNP Service: Gastroenterology Author [...] Canal and foramina (more content not included)... [facility] 10-20-2023 Note HNO ID: [id number] Author: Komal Andino MD Service: General Surgery Author Type: Physician Type: Progress Notes Filed: 10/21/2023 6:23 PM Note Text: Trauma Surgery Progress Note SERVICE DATE: 10/20/2023 Trauma Service Pager: For questions or concerns Mon-Fri 6a-5p please page [phone]. After 5pm and on Weekends and Holidays, please page [phone] if in ICU or [phone] if on RNF. SUBJECTIVE: Patient seen this [...] questions or concerns Mon-Fri 6a-5p please page [phone]. After 5pm and on Weekends and Holidays, please page [phone] if in ICU or [phone] if on RNF. Attending Note I personally saw and examined the patient. I reviewed the resident's note. I agree with the resident's assessment and plan unless otherwise noted. As above C-collar ST GI to evaluate esophageal mass Placement Signature: Komal Andino MD Date: 10/21/2023 Time: 6:22 PM [facility] Summary Purpose Family History No Family History Records FoundNo Family History Records FoundNo Family History Records Found Advance Directives No Advanced Directives Records FoundNo Advanced Directives Records FoundNo Advanced Directives Records Found Additional Source Comments INFORMATION SOURCE (unrecogn ized section and content) DATE CREATED AUTHOR AUTHOR'S ORGANIZ ATION 10/23/2023 [facility] DATE CREATED AUTHOR AUTHOR'S ORGANIZ ATION 11/10/2023 [facility] FOR RECORDS PERTAINING TO PATIENTS WHO ARE [...] BE BASED ON THE PRIMARY CLINICAL RECORDS. [employer] provides no warranty or guarantee of the accuracy or completeness of information in this document.
[2023-11-11] VITALS (8 sets, daily range): BP systolic 99–101; BP diastolic 59–63; PULSE 99–133; RESP 16–34; TEMP 36.9–37.3; O2SAT 89–99
[2023-11-11] MEDS: Albuterol 2.5 MG/3 ML VIAL.NEB. INHALATION (00:30)
[2023-11-11] MEDS: Morphine 4 MG/ML Syringe IV ×2 (01:03→03:40)
[2023-11-11] MEDS: 0.9% Saline Lock 10 ML Syringe IV ×5 (01:03→13:50)
[2023-11-11] MEDS: 0.9% Normal Saline (250mL Bag) 250 ML 15 ML IV (05:40)
[2023-11-11] MEDS: Piperacil/Tazobactam 3.375 GM in 0.9% Normal Saline (50mL MB+) 50 ML IV ×3 (05:40→22:09)
--- NOTE | 2023-11-11 07:50 | PCM.PN.HOSP ---
Reason for Visit Reason for Visit: Diagnoses Pneumonitis due to inhalation of food and vomit (11/10/23) Acute respiratory failure with hypoxia (11/10/23) Nondisplaced Type II dens fracture, initial encounter for closed fracture (11/10/23) Encounter for palliative care (11/10/23) Subjective Subjective Denies new complaints. Objective Data Objective Data Vital Signs: Vital Signs Temp Pulse Resp BP Pulse Ox O2 Del Method O2 Flow Rate 36.6 C 122 H 28 H 103/57 L 92 Airvo 50 11/10/23 23:40 11/11/23 04:22 11/11/23 04:22 11/10/23 23:40 11/11/23 04:22 11/11/23 05:55 11/11/23 00:30 FiO2 90 11/11/23 04:22 Oxygen Flow Rate (L/min) 50 Oxygen Delivery Method Airvo Weight: 35.3 kg Body Mass Index (BMI) 15.2 Intake & Output: Intake and Output for Last 24 Hours 11/09/23 11/10/23 11/11/23 23:59 23:59 23:59 Intake Total 0 / 0 Balance 0 / 0 Lab / Micro Data 11/10/23 21:08 11/10/23 21:08 Labs: Laboratory Results - last 24 hr 11/10/23 21:08: WBC 18.3 H, RBC 4.27, Hgb 11.5 L, Hct 37.9, MCV 88.8, MCH 26.9 L, MCHC 30.3 L, RDW Std Deviation 55.4 H, RDW Coeff of Jeanine 17.2 H, Plt Count 739 H, MPV 8.8, Immature Gran % (Auto) 0.400, Neut % (Auto) 82.0 H, Lymph % (Auto) 9.2 L, Trinity % (Auto) 6.9, Eos % (Auto) 0.8, Baso % (Auto) 0.7, Absolute Neuts (auto) 15.0 H, Absolute Lymphs (auto) 1.69, Nucleated RBC % 0, Sodium 141, Potassium 3.6, Chloride 108 H, Carbon Dioxide 29.0, Anion Gap 4 L, BUN 14, Creatinine 0.73, Estim Creat Clear Calc 50.58, Est GFR (MDRD) Af Amer 103, Est GFR (MDRD) Non-Af 85, BUN/Creatinine Ratio 19.1, Glucose 126 H, Calcium 9.7, Total Bilirubin 0.30, AST 9 L, ALT 11 L, Alkaline Phosphatase 142 H, Troponin I High Sens 9, Total Protein 7.7, Albumin 2.9 L, Globulin 4.8 H, Albumin/Globulin Ratio 0.6 L Micro: Microbiology 11/10/23 20:52 Mucosa - Nose SARS-CoV-2, Influenza & RSV (PCR) - Final ABG Data ABG results: ABG 11/10/23 20:55 Specimen Type DANIEL Sample Site Not entered O2 % 80.0 VBG pH 7.50 H VBG pO2 104 H VBG HCO3 24 VBG Total CO2 25 VBG O2 Sat (Calc) 99 H VBG Base Excess 1 POC Mix VBG pCO2 Pt Tmp 31.3 L O2 Delivery Device BiPAP Clinical Comments 14. 6. 80% Radiography Diagnostic Testing: Radiology Impression Chest X-Ray 11/10/23 20:30 IMPRESSION: Emphysema without pneumonia or atelectasis. Electronically Signed: Yayo Bingham MD at 20:41 EST , Chest CT 11/10/23 21:01 IMPRESSION: 1. Atypical infectious process involving both lower lobes and inferior lingula. 2. Chronic compression fractures of thoracic spine. Electronically Signed: Landon Landry MD at 22:29 EST , Physical Exam Const alert and no apparent distress Constitutional Narrative: C-collar in place. Resp Resp Narrative: coarse breath sounds. Cardio regular rate, regular rhythm, S1 normal heart sound and S2 normal heart sound GI normal to inspection, nondistended, normoactive bowel sounds, soft to palpation, non-tender and non-distended Neuro Sensorium / Orientation: awake and alert Assessment & Plan Assessment/Plan (1) Aspiration pneumonia: QUALIFIERS: Aspiration pneumonia type: unspecified Laterality: unspecified laterality Lung location: unspecified part of lung Qualified Code(s): J69.0 - Pneumonitis due to inhalation of food and vomit (2) Acute hypoxic respiratory failure: (3) Closed C2 fracture: QUALIFIERS: Encounter type: initial encounter Fracture alignment: nondisplaced Fracture morphology: type II dens Qualified Code(s): S12.112A - Nondisplaced Type II dens fracture, initial encounter for closed fracture (4) End of life care: PLAN: Plan Acute hypoxic respiratory failure requiring BiPAP, since transitioned to AirVo. RR up to 44. 2/2 Aspiration pneumonia. Lung mass, COPD exacerbation Aspiration pneumonia on pip/tazo Continue IV antibiotics begun in the ER and await culture and sensitivity data. Give Toradol IV as needed for mild to moderate level 1-5 out of 10 pain or fever. Give morphine IV as needed for severe level 6-10 out of 10 pain. Give atropine as needed for excessive secretions. Finally, we will consult the palliative care service to see this patient on rounds in the a.m. for end-of-life care with help appreciated in advance. 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 Severe protein calorie malnutrition complicates care pending hospice eval, hold of on supplements s/p PEG tube Chronic conditions: History of tobacco abuse: nicotine patch History of CVA; with residual left hemiplegia and stuttering speech - Stable. Hypothyroidism - Continue Synthroid if patient is able to tolerate oral intake. history of alcohol abuse previously History of polycythemia vera - Stable. GERD; with history of peptic ulcer disease - Stable. Depression with anxiety - Give IV Ativan as needed for breakthrough symptoms. Osteoarthritis - Stable. Osteoporosis - Stable. DVT prophylaxis - Lovenox 40 mg subcu daily. Prognosis: poor. Disposition: pending hospice evaluation. Charges/Coding Visit Charges Inpatient E&M: 43617 Subs Hosp L2
[2023-11-11] MEDS: Ketorolac 15 MG/ML Vial IV ×2 (08:00→13:51)
--- NOTE | 2023-11-11 10:30 | NURSING ---
staff [facility] called to check on pt
--- NOTE | 2023-11-11 11:55 | CASEMGMT ---
Social Work SW met with pt and her sister Dian and introduced self and role of SW. Pt has been admitted from the [facility] extended care facility. Dian states [facility] has been consulted and the liaison will be here shortly to meet with pt and Dian. Dian would like pt to return to the [facility] with hospice services. DC assistant vice president updated and to send clinical update to the [facility]. Plan: Return to [facility]. Hospice services pending meeting with KOBI Soni
--- NOTE | 2023-11-11 12:06 | CASEMGMT ---
Addendum entered by Lisa Negron 11/11/23 12:27: [facility] will need to obtain a new precert for patient to return. They requested hospice documents when available so that precert can be expedited. SW updated. Lisa Negron, Discharge Planning Asst. Original Note: Discharge Planning Updates sent to [facility] [place] via [facility]. Asked if precert will be needed to return. Awaiting response. Lisa Negron, Discharge Planning Asst.
--- NOTE | 2023-11-11 14:09 | NURSING ---
kehinde from hospice called to see if anyone from hospice has been in yet to meet w/pt and family. she apologized and said she would make some calls
--- NOTE | 2023-11-11 15:18 | CHAPLAIN ---
Type of Pastoral Visit _x__ Initial Visit ___ Follow-up Visit ___ On-call Visit ___ General Patient Visit ___ Spiritual Assessment ___ Family Conference ___ Bereavement ___ Rapid Response ___ Code Blue ___ Other (describe below) Pastoral Care Referral From _x__ Patient _x__ Family ___ Nurse ___ Physician ___ International Trade Specialist ___ Cnc Manager ___ Other (describe below) Sacrament/Intervention _x__ Active listening ___ Anointing ___ Voodoo ___ Bereavement ___ Communion _x__ Lulu exploration ___ ___ Life review _x__ Prayer ___ Reconciliation ___ Sacrament of Sick _x__ Supportive presence ___ Wedding ___ Other (describe below) Pastoral Comments patient is very frail and on O2; family member is with her at bedside; pt admits that she is not feeling well and that she is quite sick; sister speaks up and gives more details and admits that hospice is coming soon to evaluate person for appropriateness for their program; pt and family member speak of lulu in God and how that is helpful in times such as this; affirmation of lulu and spiritual care support is given; prayer is given for patient after giving her opportunity to express her fears or concerns; hospice worker came into room during prayer time
--- NOTE | 2023-11-11 15:56 | DCINST_ITS ---
Discharge Instructions Diet Discharge Diet: No restrictions Follow Up Care Test Results: Test results from this visit will be discussed in further detail at your follow- up appointment, if applicable. Discharge Plan Admission Admit Date/Time: 11/10/23 22:46 Primary Reason for Your Visit: pneumonia Attending Provider: Charles Faust Primary Care Provider: Zachary Vargas Chi Consulting Providers: Wilbur Womack; Wilbur Ogden; Izabela Alamo; Deisy Rodriguez; Flores Esparza BOX SEALING MACHINE FEEDER Discharge Orders/Prescriptions Prescriptions: Continued atorvastatin 40 MG tablet 40 mg PO DAILY doxepin 100 MG capsule 100 mg PO QHS Patient Comments: TAKE 1 CAPSULE BY MOUTH ONCE DAILY AT BEDTIME bupropion HCl (smoking deter) 150 mg tablet extended release 12 hr 150 mg PO BID melatonin 5 mg Tablet 10 mg PO QHS acetaminophen 500 MG tablet 2 tab PO Q8H PRN (Reason: Pain) albuterol sulfate 2.5 mg/0.5 mL solution for nebulization 2.5 mg inhalation Q4H PRN (Reason: shortness of breath or wheezing) aspirin 81 mg capsule 81 mg PO DAILY cyclobenzaprine 10 mg tablet 10 mg PO QHS hydroxyzine HCl 25 mg tablet 25 mg PO Q8H PRN (Reason: anxiety) famotidine [Pepcid] 40 mg tablet 40 mg PO DAILY oxycodone 5 mg tablet 5 mg PO Q6H PRN (Reason: pain) paroxetine HCl 20 mg tablet 20 mg PO QHS Discontinued ergocalciferol (vitamin D2) 1,250 mcg (50,000 unit) capsule 50,000 units PO QMONTH Referrals / Follow Up: Zachary Vargas Chi, MD [Primary Care Provider] - Disposition Disposition (needs filled in before D/C Order can be placed): Hospice in Medical Facility
--- NOTE | 2023-11-11 16:01 | CASEMGMT ---
Discharge Planning Updates sent to [facility]. Asked for precert to be submitted. Lisa Negron, Discharge Planning Asst.
--- NOTE | 2023-11-11 16:16 | CASEMGMT ---
Social Work Pt and pt's sister did meet with [facility] and signed papers for admission to the Hospice Program. [facility]. Precert will be needed for pt to return to [facility]. There are questions regarding pt oxygen needs. MOOSE spoke with nursing and respiratory and pt can go to ECF with 2 10L concentrators. Wendy at [facility] states this can be done. SW met with pt and sister. Pt sleeping. SW updated pt's sister that precert is needed for pt to return to [facility] and this process has been started. Pt will remain in the hospital overnight with hopes that precert is obtained tomorrow. Emotional support provided to pt's sister. Physician updated. Plan: Return to [facility] with hospice servcies, pending precert KOBI Banegas
[2023-11-12] VITALS (12 sets, daily range): BP systolic 93–97; BP diastolic 56–60; PULSE 92–107; RESP 16–24; TEMP 36.6; O2SAT 93–97
[2023-11-12] MEDS: 0.9% Saline Lock 10 ML Syringe IV ×2 (02:07→12:12)
[2023-11-12] MEDS: Ketorolac 15 MG/ML Vial IV ×3 (02:07→21:14)
[2023-11-12] MEDS: Piperacil/Tazobactam 3.375 GM in 0.9% Normal Saline (50mL MB+) 50 ML IV ×3 (05:05→21:14)
--- NOTE | 2023-11-12 07:45 | PN.HOSP_ITS ---
Subjective Subjective Decided on proceeding with hospice. Still requiring Airvo. Objective Data Objective Data Vital Signs: Vital Signs Temp Pulse Resp BP Pulse Ox O2 Del Method O2 Flow Rate 36.6 C 92 16 97/56 L 96 Airvo 50 11/12/23 02:31 11/12/23 05:23 11/12/23 02:31 11/12/23 02:31 11/12/23 05:23 11/12/23 02:31 11/12/23 02:31 FiO2 60 11/12/23 05:23 Oxygen Flow Rate (L/min) 50 Oxygen Delivery Method Airvo Weight: 35.3 kg Body Mass Index (BMI) 15.2 Intake & Output: Intake and Output for Last 24 Hours 11/10/23 11/11/23 11/12/23 23:59 23:59 23:59 Intake Total 155 / 155 245 / 245 Output Total 200 / 200 425 / 425 Balance -45 / -45 -180 / -180 Medical Nutrition Assessment Dietitian: Malnutrition Criteria Met Start: 11/11/23 09:30 Freq: Status: Active Protocol: Document 11/11/23 09:42 AG (Rec: 11/11/23 09:42 AG Desktop) Nutrition Malnutrition Evidence of Malnutrition Exists Yes Malnutrition (severe): Chronic Evidenced By Weight Loss (Severe),Physical Changes (Severe) Clinical Problem Chronic Disease or Condition Related Malnutrition Etiology severe, chronic malnutrition related to inadequate energy intake Signs/Symptoms as evidenced by unintentional 23% wt loss < 1 year, severe muscle wasting/fat loss evident per physical exam, BMI 15.2 Status Active Problem Recommendation Dietitian Recommendations/Changes hospice care, regular diet as desired Lab / Micro Data 11/10/23 21:08 11/10/23 21:08 Micro: Microbiology 11/10/23 20:52 Mucosa - Nose SARS-CoV-2, Influenza & RSV (PCR) - Final Physical Exam Const Constitutional Narrative: cachectic. afebrile. On airvo. Psych affect normal Assessment & Plan Assessment/Plan (1) Aspiration pneumonia: QUALIFIERS: Aspiration pneumonia type: unspecified Laterality: unspecified laterality Lung location: unspecified part of lung Qualified Code(s): J69.0 - Pneumonitis due to inhalation of food and vomit (2) Acute hypoxic respiratory failure: (3) Closed C2 fracture: QUALIFIERS: Encounter type: initial encounter Fracture alignment: nondisplaced Fracture morphology: type II dens Qualified Code(s): S12.112A - Nondisplaced Type II dens fracture, initial encounter for closed fracture (4) End of life care: PLAN: Plan Acute hypoxic respiratory failure * requiring BiPAP, since transitioned to AirVo. * RR up to 44. * 2/2 Aspiration pneumonia. Lung mass, COPD exacerbation Aspiration pneumonia * on pip/tazo. With patient being discharged to the facility with hospice, will have the patient on Augmentin. * Continue IV antibiotics begun in the ER and await culture and sensitivity data. Give Toradol IV as needed for mild to moderate level 1-5 out of 10 pain or fever. Give morphine IV as needed for severe level 6-10 out of 10 pain. Give atropine as needed for excessive secretions. Finally, we will consult the palliative care service to see this patient on rounds in the a.m. for end-of-life care with help appreciated in advance. Recently diagnosed C2 dens fracture * subsequent visit * who presents recently evaluated at [facility] when she was found to have a suspected tumor in her right lung with a biopsy unable to be done because of the increased risk of anesthesia associated with possible paralysis due to intubation complicating #1 - Noted. Severe protein calorie malnutrition * complicates care * As patient is proceeding with hospice, will not have a focus on nutritional status at this point. * s/p PEG tube Chronic conditions: * History of tobacco abuse: nicotine patch * History of CVA; with residual left hemiplegia and stuttering speech - Stable. * Hypothyroidism - Continue Synthroid if patient is able to tolerate oral intake. * history of alcohol abuse previously * History of polycythemia vera - Stable. * GERD; with history of peptic ulcer disease - Stable. * Depression with anxiety - Give IV Ativan as needed for breakthrough symptoms. * Osteoarthritis - Stable. * Osteoporosis - Stable. DVT prophylaxis - Lovenox 40 mg subcu daily. Prognosis: poor. Disposition: Met with hospice on the fourth and plan is to go back to the [facility] with hosp[facility]. Facility will need precertification before she can return. Social work informing that the insurance company will expedite the insurance authorization process given her desire for hospice. Will optimize medications to help with comfort and anxiety if needed. Charges/Coding Visit Charges Inpatient E&M: 25436 [facility] L1
--- NOTE | 2023-11-12 07:50 | TREXTCAR_ITS ---
Diet Diet Order/Speech Therapy: small bites Routine Orders/Code Status Code Status: DNRCC Therapies Weight Bearing: Weight bearing as tolerated Problem/Diagnosis (1) Aspiration pneumonia: Status: Acute Code(s): J69.0 - Pneumonitis due to inhalation of food and vomit (2) Acute hypoxic respiratory failure: Status: Acute Code(s): J96.01 - Acute respiratory failure with hypoxia (3) Closed C2 fracture: Status: Acute Code(s): S12.100A - Unspecified displaced fracture of second cervical vertebra, initial encounter for closed fracture (4) End of life care: Status: Acute Code(s): Z51.5 - Encounter for palliative care Plan Acute hypoxic respiratory failure * requiring BiPAP, since transitioned to AirVo. * RR up to 44. * 2/2 Aspiration pneumonia. Lung mass, COPD exacerbation Aspiration pneumonia * on pip/tazo. With patient being discharged to the facility with hospice, will have the patient on Augmentin. * Continue IV antibiotics begun in the ER and await culture and sensitivity data. Give Toradol IV as needed for mild to moderate level 1-5 out of 10 pain or fever. Give morphine IV as needed for severe level 6-10 out of 10 pain. Give atropine as needed for excessive secretions. Finally, we will consult the palliative care service to see this patient on rounds in the a.m. for end-of-life care with help appreciated in advance. Recently diagnosed C2 dens fracture * subsequent visit * who presents recently evaluated at [facility] when she was found to have a suspected tumor in her right lung with a biopsy unable to be done because of the increased risk of anesthesia associated with possible paralysis due to intubation complicating #1 - Noted. Severe protein calorie malnutrition * complicates care * As patient is proceeding with hospice, will not have a focus on nutritional status at this point. * s/p PEG tube Chronic conditions: * History of tobacco abuse: nicotine patch * History of CVA; with residual left hemiplegia and stuttering speech - Stable. * Hypothyroidism - Continue Synthroid if patient is able to tolerate oral intake. * history of alcohol abuse previously * History of polycythemia vera - Stable. * GERD; with history of peptic ulcer disease - Stable. * Depression with anxiety - Give IV Ativan as needed for breakthrough symptoms. * Osteoarthritis - Stable. * Osteoporosis - Stable. DVT prophylaxis - Lovenox 40 mg subcu daily. Prognosis: poor. Disposition: Met with hospice on the fourth [facility] Facility will need precertification before she can return. Social work informing that the insurance company will expedite the insurance authorization process given her desire for hospice. Will optimize medications to help with comfort and anxiety if needed. Allergies/Procedures Done in Hospital Allergies No Known Allergies Allergy (Verified 01/21/23 07:18) Type of Care/Length of Stay Estimated LOS: Convalescent Care Less Than 30 days Type of Care Needed: Skilled Rehab Potential: Poor Prognosis: Poor Additional Orders/Day of Discharge Day of Discharge: 11/12/23 Dietary and Speech Recommendations Dietitian Recommendations/Changes: hospice care, regular diet as desired Discharge Plan Admission Admit Date/Time: 11/10/23 22:46 Primary Reason for Your Visit: pneumonia Attending Provider: Charles Faust Primary Care Provider: Zachary Vargas Chi Consulting Providers: Wilbur Womack; Wilbur Ogden; Izabela Alamo; Deisy Rodrigeuz; Flores Esparza MOLD SETTER Discharge Orders/Prescriptions Prescriptions: New amoxicillin-pot clavulanate 875-125 mg tablet 1 tab PO BID Qty: 10 0RF lorazepam 1 mg tablet 1 mg PO TID PRN (Reason: anxiety) Qty: 10 0RF Continued atorvastatin 40 MG tablet 40 mg PO DAILY doxepin 100 MG capsule 100 mg PO QHS Patient Comments: TAKE 1 CAPSULE BY MOUTH ONCE DAILY AT BEDTIME bupropion HCl (smoking deter) 150 mg tablet extended release 12 hr 150 mg PO BID melatonin 5 mg Tablet 10 mg PO QHS acetaminophen 500 MG tablet 2 tab PO Q8H PRN (Reason: Pain) albuterol sulfate 2.5 mg/0.5 mL solution for nebulization 2.5 mg inhalation Q4H PRN (Reason: shortness of breath or wheezing) aspirin 81 mg capsule 81 mg PO DAILY cyclobenzaprine 10 mg tablet 10 mg PO QHS hydroxyzine HCl 25 mg tablet 25 mg PO Q8H PRN (Reason: anxiety) famotidine [Pepcid] 40 mg tablet 40 mg PO DAILY oxycodone 5 mg tablet 5 mg PO Q6H PRN (Reason: pain) paroxetine HCl 20 mg tablet 20 mg PO QHS Discontinued ergocalciferol (vitamin D2) 1,250 mcg (50,000 unit) capsule 50,000 units PO QMONTH Referrals / Follow Up: Zachary Vargas Chi, MD [Primary Care Provider] - Disposition Disposition (needs filled in before D/C Order can be placed): Hospice in Medical Facility (1) Aspiration pneumonia Qualifiers: Aspiration pneumonia type: unspecified Laterality: unspecified laterality Lung location: unspecified part of lung Qualified Code(s): J69.0 - Pneumonitis due to inhalation of food and vomit (3) Closed C2 fracture Qualifiers: Encounter type: initial encounter Fracture morphology: type II dens Fracture alignment: nondisplaced Qualified Code(s): S12.112A - Nondisplaced Type II dens fracture, initial encounter for closed fracture
--- NOTE | 2023-11-12 16:38 | CASEMGMT ---
Social Work Multiple communications with the [facility] and precert has not yet been obtained. SW met with pt and sister and updated. [facility] to call the nursing floor when precert is obtained. [facility] will need to be notified when pt is ready for discharge. Plan: Return to the [facility] with hospice services KOBI Banegas
[2023-11-12] MEDS: Ondansetron 4 MG/2 ML Vial IV (17:45)
[2023-11-13 02:36] VITALS: PULSE 84; O2SAT 95
[2023-11-13] MEDS: Ketorolac 15 MG/ML Vial IV ×2 (03:26→11:51)
[2023-11-13] MEDS: 0.9% Saline Lock 10 ML Syringe IV ×3 (03:26→15:32)
[2023-11-13 05:56] VITALS: O2SAT 93
[2023-11-13] MEDS: Piperacil/Tazobactam 3.375 GM in 0.9% Normal Saline (50mL MB+) 50 ML IV ×2 (05:59→14:26)
[2023-11-13 07:40] VITALS: PULSE 86; O2SAT 95
--- NOTE | 2023-11-13 07:48 | PN.HOSP_ITS ---
Subjective Subjective Still spitting up. Objective Data Objective Data Vital Signs: Vital Signs Temp Pulse Resp BP Pulse Ox O2 Del Method O2 Flow Rate 36.6 C 84 24 H 95/57 L 93 Airvo 50 11/12/23 14:34 11/13/23 02:36 11/12/23 14:34 11/12/23 14:34 11/13/23 05:56 11/13/23 05:56 11/13/23 05:56 FiO2 50 11/13/23 05:56 Oxygen Flow Rate (L/min) 50 Oxygen Delivery Method Airvo Weight: 35.3 kg Body Mass Index (BMI) 15.2 Intake & Output: Intake and Output for Last 24 Hours 11/11/23 11/12/23 11/13/23 23:59 23:59 23:59 Intake Total 155 / 155 345 / 545 450 / 450 Output Total 200 / 200 425 / 725 600 / 600 Balance -45 / -45 -80 / -180 -150 / -150 Medical Nutrition Assessment Dietitian: Malnutrition Criteria Met Start: 11/11/23 09:30 Freq: Status: Active Protocol: Document 11/11/23 09:42 AG (Rec: 11/11/23 09:42 AG Desktop) Nutrition Malnutrition Evidence of Malnutrition Exists Yes Malnutrition (severe): Chronic Evidenced By Weight Loss (Severe),Physical Changes (Severe) Clinical Problem Chronic Disease or Condition Related Malnutrition Etiology severe, chronic malnutrition related to inadequate energy intake Signs/Symptoms as evidenced by unintentional 23% wt loss < 1 year, severe muscle wasting/fat loss evident per physical exam, BMI 15.2 Status Active Problem Recommendation Dietitian Recommendations/Changes hospice care, regular diet as desired Lab / Micro Data 11/10/23 21:08 11/10/23 21:08 Micro: Microbiology 11/10/23 20:54 Blood Culture (Wb) - Left Hand Blood Culture - Preliminary No growth in 48 hours. 11/10/23 20:52 Mucosa - Nose SARS-CoV-2, Influenza & RSV (PCR) - Final Physical Exam Const alert and no apparent distress Constitutional Narrative: spit up large amount of saliva while I was in the room. cachectic. afebrile. non-toxic. Neuro moves all extremities Sensorium / Orientation: awake and alert Psych Mood & Affect: anxious Assessment & Plan Assessment/Plan (1) Aspiration pneumonia: QUALIFIERS: Aspiration pneumonia type: unspecified Laterality: unspecified laterality Lung location: unspecified part of lung Qualified Code(s): J69.0 - Pneumonitis due to inhalation of food and vomit (2) Acute hypoxic respiratory failure: (3) Closed C2 fracture: QUALIFIERS: Encounter type: initial encounter Fracture alignment: nondisplaced Fracture morphology: type II dens Qualified Code(s): S12.112A - Nondisplaced Type II dens fracture, initial encounter for closed fracture (4) End of life care: PLAN: Plan Acute hypoxic respiratory failure * requiring BiPAP, since transitioned to AirVo. * RR up to 44. * 2/2 Aspiration pneumonia. Lung mass, COPD exacerbation Aspiration pneumonia * on pip/tazo. With patient being discharged to the facility with hospice, will have the patient on Augmentin. * Continue IV antibiotics begun in the ER and await culture and sensitivity data. Give Toradol IV as needed for mild to moderate level 1-5 out of 10 pain or fever. Give morphine IV as needed for severe level 6-10 out of 10 pain. Give atropine as needed for excessive secretions. Finally, we will consult the palliative care service to see this patient on rounds in the a.m. for end-of-life care with help appreciated in advance. Recently diagnosed C2 dens fracture * subsequent visit * who presents recently evaluated at [facility] when she was found to have a suspected tumor in her right lung with a biopsy unable to be done because of the increased risk of anesthesia associated with possible paralysis due to intubation complicating #1 - Noted. Severe protein calorie malnutrition * complicates care * As patient is proceeding with hospice, will not have a focus on nutritional status at this point. * s/p PEG tube Chronic conditions: * History of tobacco abuse: nicotine patch * History of CVA; with residual left hemiplegia and stuttering speech - Stable. * Hypothyroidism - Continue Synthroid if patient is able to tolerate oral intake. * history of alcohol abuse previously * History of polycythemia vera - Stable. * GERD; with history of peptic ulcer disease - Stable. * Depression with anxiety - Give IV Ativan as needed for breakthrough symptoms. * Osteoarthritis - Stable. * Osteoporosis - Stable. DVT prophylaxis - Lovenox 40 mg subcu daily. Prognosis: poor. Disposition: Had a long discussion with the patient and her daughter today. [facility] However patient is very sick overall. She requires a lot of assistance that would likely exceed the capabilities at the senior care facility. A recommend patient go to the inpatient hospice unit. Patient stated that she was offered that initially but declined that as she had heard bad things about hospice before. She is now agreeable as she has many ongoing issues including respiratory failure and need for frequent suctioning. Greater than 55 minutes of which greater than for percent of time was discussing with the patient and her daughter at bedside about her needs, need for hospice. Charges/Coding Visit Charges Inpatient E&M: 93040 [facility] Hosp L3
[2023-11-13 08:16] VITALS: BP 96/64; PULSE 93; RESP 20; TEMP 36.3; O2SAT 94
[2023-11-13] MEDS: Morphine 4 MG/ML Syringe IV ×2 (08:44→15:31)
[2023-11-13] MEDS: Acetaminophen 650 MG Suppository RC (08:49)
--- NOTE | 2023-11-13 09:00 | CASEMGMT ---
Social Work As per relief charge nurse on [facility], [facility] did call last evening to say pt could come today, and transport had been set up for 9am. However, MOOSE needed to verify. MOOSE did verify pt can go to [facility] today. Physician notified, and he will send pt today to [facility], for pt to be on hospice there. laboratory secretary Marcos will adjust the time of transport and let the facility know, and let hospice know as per the green sheet. MOOSE remains available for any additional social service needs. MARIE Gutierrez
--- NOTE | 2023-11-13 11:04 | CASEMGMT ---
Addendum entered by Sarah Ybarra 11/13/23 14:46: Social Work SW spoke w/bedside RN, pt will be going to [facility] w/hospice. No further social service needs at this time. MARIE Gutierrez Original Note: Social Work SW spoke w/physician, he states pt needs too much care and is not appropriate for returning to [facility]. He states pt was initially not agreeable to the inpt hospice unit with hospice though it was offered. She is agreeable now. SW called [facility], they will call SW back. MARIE Gutierrez
[2023-11-13 13:05] VITALS: O2SAT 93
--- NOTE | 2023-11-13 14:13 | DS.PCM_ITS ---
Providers Date of Admission: 11/10/23 Primary Care Physician: Dr. Zachary Vargas MD Consultations 11/10/23 23:24 Consult: Hospice / Palliative Care Routine Consulting Provider: [facility] Reason for Consult: Aspiration pneumonia with recent C2 dens fracture EMERGENT Consult: No MD Notified: Yes Date Notified: 11/11/23 Time Notified: 08:00 Method of Notification: Answering Service Reason For Visit: ASPIRATION PNEUMONIA AND RECENT C2 DENS FRACTURE Diagnosis Discharge Diagnosis (1) Aspiration pneumonia: Status: Acute Code(s): J69.0 - Pneumonitis due to inhalation of food and vomit Qualifiers: Aspiration pneumonia type: unspecified Laterality: unspecified laterality Lung location: unspecified part of lung Qualified Code(s): J69.0 - Pneumonitis due to inhalation of food and vomit (2) Acute hypoxic respiratory failure: Status: Acute Code(s): J96.01 - Acute respiratory failure with hypoxia (3) Closed C2 fracture: Status: Acute Code(s): S12.100A - Unspecified displaced fracture of second cervical vertebra, initial encounter for closed fracture Qualifiers: Encounter type: initial encounter Fracture morphology: type II dens Fracture alignment: nondisplaced Qualified Code(s): S12.112A - Nondisplaced Typ e II dens fracture, initial encounter for closed fracture (4) End of life care: Status: Acute Code(s): Z51.5 - Encounter for palliative care Plan Acute hypoxic respiratory failure * requiring BiPAP, since transitioned to [facility]. * RR up to 44. * 2/2 Aspiration pneumonia. Lung mass, COPD exacerbation Aspiration pneumonia * on pip/tazo. With patient being discharged to the facility with hospice, will have the patient on Augmentin. * Continue IV antibiotics begun in the ER and await culture and sensitivity data. Give Toradol IV as needed for mild to moderate level 1-5 out of 10 pain or fever. Give morphine IV as needed for severe level 6-10 out of 10 pain. Give atropine as needed for excessive secretions. Finally, we will consult the palliative care service to see this patient on rounds in the a.m. for end-of-life care with help appreciated in advance. 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 Severe protein calorie malnutrition * complicates care * As patient is proceeding with hospice, will not have a focus on nutritional status at this point. * s/p PEG tube Chronic conditions: * History of tobacco abuse: nicotine patch * History of CVA; with residual left hemiplegia and stuttering speech - Stable. * Hypothyroidism - Continue Synthroid if patient is able to tolerate oral intake. * history of alcohol abuse previously * History of polycythemia vera - Stable. * GERD; with history of peptic ulcer disease - Stable. * Depression with anxiety - Give IV Ativan as needed for breakthrough symptoms. * Osteoarthritis - Stable. * Osteoporosis - Stable. DVT prophylaxis - Lovenox 40 mg subcu daily. Prognosis: poor. Disposition: Had a long discussion with the patient and her daughter today. Plan was [facility] However patient is very sick overall. She requires a lot of assistance that would likely exceed the capabilities at the [facility] facility. A recommend patient go to the inpatient hospice unit. Patient stated that she was offered that initially but declined that as she had heard bad things about hospice bef ore. She is now agreeable as she has many ongoing issues including respiratory failure and need for frequent suctioning. Greater than 55 minutes of which greater than for percent of time was discussing with the patient and her daughter at bedside about her needs, need for hospice. Medications at Discharge Home Medications atorvastatin 40 mg tablet 40 mg PO DAILY cholesterol 12/26/18 doxepin 100 mg capsule 100 mg PO QHS depression 12/10/19 bupropion HCl (smoking deter) 150 mg tablet,12 hr sustained-release(smoking deterrent) 150 mg PO BID depression 05/20/20 acetaminophen 500 mg tablet 2 tab PO Q8H PRN Pain 10/05/22 melatonin 5 mg tablet 10 mg PO QHS INSOMNIA 10/05/22 albuterol sulfate 2.5 mg/0.5 mL solution for nebulization 2.5 mg inhalation Q4H PRN shortness of breath or wheezing 11/10/23 aspirin 81 mg capsule 81 mg PO DAILY blood thinner 11/10/23 cyclobenzaprine 10 mg tablet 10 mg PO QHS muscle relaxer 11/10/23 famotidine 40 mg tablet (Pepcid) 40 mg PO DAILY gerd 11/10/23 hydroxyzine HCl 25 mg tablet 25 mg PO Q8H PRN anxiety 11/10/23 oxycodone 5 mg tablet 5 mg PO Q6H PRN pain 11/10/23 paroxetine HCl 20 mg tablet 20 mg PO QHS depression 11/10/23 amoxicillin 875 mg-potassium clavulanate 125 mg tablet 1 tab PO BID #10 tabs 11/12/23 lorazepam 1 mg tablet 1 mg PO TID PRN anxiety #10 tabs 11/12/23 Hospital Course Operations None Procedures None Summary of Care Provided Minutes Spent on Discharge: 45 Hospital Course: Since with an aspiration event. Patient was treated for pneumonia with pip- tazo. Patient has had a complicated history with a C2 fracture, lung mass severe cachexia. Patient met with hospice and agreed to proceed. Patient was [facility] but were waiting on precertification. Today, evaluate the patient and patient does not swallowing safely and feel that she would be high needs at the intermediate given with hospice and recommended the hospice unit. Patient had previously had declined because she had reported heard bad things about hospice. Discussed with her and her daughter about they would be better able to meet her needs there then they would at the [facility] with hospice. She is agreeable to proceeding with hospice. We reached out to hospice and I spoke with Dr. Alamo about her case and agree to accept the patient there. Medical Records Data Medical Nutrition Assessment Dietitian: Malnutrition Criteria Met Start: 11/11/23 09:30 Freq: Status: Active Protocol: Document 11/11/23 09:42 AG (Rec: 11/11/23 09:42 AG Desktop) Nutrition Malnutrition Evidence of Malnutrition Exists Yes Malnutrition (severe): Chronic Evidenced By Weight Loss (Severe),Physical Changes (Severe) Clinical Problem Chronic Disease or Condition Related Malnutrition Etiology severe, chronic malnutrition related to inadequate energy intake Signs/Symptoms as evidenced by unintentional 23% wt loss < 1 year, severe muscle wasting/fat loss evident per physical exam, BMI 15.2 Status Active Problem Recommendation Dietitian Recommendations/Changes hospice care, regular diet as desired Weight / BMI Weight Weight: 35.3 kg Body Mass Index (BMI) 15.2 ABG / Lab / Microbiology Data 11/10/23 21:08 11/10/23 21:08 Microbiology: Microbiology 11/10/23 20:54 Blood Culture (Wb) - Left Hand Blood Culture - Preliminary No growth in 48 hours. 11/10/23 20:52 Mucosa - Nose SARS-CoV-2, Influenza & RSV (PCR) - Final D/C Instructions Discharge Diet: No restrictions Meaningful Use Info Meaningful Use Diagnoses (Choose all that apply): None applicable Discharge Plan Admission Admit Date/Time: 11/10/23 22:46 Primary Reason for Your Visit: pneumonia Attending Provider: Charles Faust Primary Care Provider: Zachary Vargas Chi Consulting Providers: Wilbur Womack; Wilbur Ogden; Izabela Alamo; Deisy Rodriguez; Flores Esparza GRADUATE ASSISTANT Discharge Orders/Prescriptions Prescriptions: New amoxicillin-pot clavulanate 875-125 mg tablet 1 tab PO BID Qty: 10 0RF lorazepam 1 mg tablet 1 mg PO TID PRN (Reason: anxiety) Qty: 10 0RF Continued atorvastatin 40 MG tablet 40 mg PO DAILY doxepin 100 MG capsule 100 mg PO QHS Patient Comments: TAKE 1 CAPSULE BY MOUTH ONCE DAILY AT BEDTIME bupropion HCl (smoking deter) 150 mg tablet extended release 12 hr 150 mg PO BID melatonin 5 mg Tablet 10 mg PO QHS acetaminophen 500 MG tablet 2 tab PO Q8H PRN (Reason: Pain) albuterol sulfate 2.5 mg/0.5 mL solution for nebulization 2.5 mg inhalation Q4H PRN (Reason: shortness of breath or wheezing) aspirin 81 mg capsule 81 mg PO DAILY cyclobenzaprine 10 mg tablet 10 mg PO QHS hydroxyzine HCl 25 mg tablet 25 mg PO Q8H PRN (Reason: anxiety) famotidine [Pepcid] 40 mg tablet 40 mg PO DAILY oxycodone 5 mg tablet 5 mg PO Q6H PRN (Reason: pain) paroxetine HCl 20 mg tablet 20 mg PO QHS Discontinued ergocalciferol (vitamin D2) 1,250 mcg (50,000 unit) capsule 50,000 units PO QMONTH Referrals / Follow Up: Zachary Vargas Chi, MD [Primary Care Provider] - Disposition Disposition (needs filled in before D/C Order can be placed): Hospice in Medical Facility Charges/Coding Visit Charges Inpatient E&M: 46902 Disch Hosp >30min
[2023-11-13 14:36] VITALS: BP 92/56; PULSE 90; RESP 20; TEMP 36.9; O2SAT 92
[2023-11-13] MEDS: Ondansetron 4 MG/2 ML Vial IV (15:31)
== END 2023-11-13 16:20 | disposition hospice, inpatient (51) | DRG 137 ==
LOC: ED 20:40 → MS3 23:02
PROVIDERS: Admitting Provider Internal Medicine; Emergency Provider Student in an Organized Health Care Education/Training Program; PCP Family Medicine Geriatric Medicine
DX: J69.0 Pneumonitis due to inhalation of food and vomit (principal); J96.01 Acute respiratory failure with hypoxia; E43 Unspecified severe protein-calorie malnutrition; J43.9 Emphysema, unspecified; I69.954 Hemiplegia and hemiparesis following unspecified cerebrovascular disease affecting left non-dominant side; D45 Polycythemia vera; Z93.1 Gastrostomy status; E03.9 Hypothyroidism, unspecified; F32.A Depression, unspecified; E78.5 Hyperlipidemia, unspecified; K22.9 Disease of esophagus, unspecified; M19.90 Unspecified osteoarthritis, unspecified site; K21.9 Gastro-esophageal reflux disease without esophagitis; F41.9 Anxiety disorder, unspecified; F17.210 Nicotine dependence, cigarettes, uncomplicated; M25.511 Pain in right shoulder; M25.512 Pain in left shoulder; W19.XXXD Unspecified fall, subsequent encounter; I69.928 Other speech and language deficits following unspecified cerebrovascular disease; Z51.5 Encounter for palliative care; Z66 Do not resuscitate; S12.110D Anterior displaced Type II dens fracture, subsequent encounter for fracture with routine healing; M81.0 Age-related osteoporosis without current pathological fracture; Z68.1 Body mass index [BMI] 19.9 or less, adult; Z11.52 Encounter for screening for COVID-19; Z79.899 Other long term (current) drug therapy; Z87.891 Personal history of nicotine dependence
CPT/HCPCS: 71045; 71250; 80053; 82803; 84484; 85025; 87040; 87631; 93005; 94002; 94640; 94660; 94762; 99284; J7050; A4216; J0295; J2405